=== PATIENT | female | born 1945 | race Caucasian/White ===

== ENCOUNTER 2019-09-08 09:49 | Outpatient (CLI) | payer MEDICARE, OTHER, SELFPAY ==
[2019-09-08 10:20] LABS: Basophils % 0.5 %; Eosinophils # 0.2 10^3/uL (0.0-0.8); Eosinophils % 3.9 %; Hematocrit 39.7 % (37.0-47.0); Hemoglobin 12.7 g/dL (11.5-15.3); Lymphocytes % 22.7 %; Mean Corpuscular Hemoglobin 30.5 pg (28.0-34.0); Mean Corpuscular Volume 95.2 fL (81-99); Mean Platelet Volume 10.3 fL (7.4-10.4); Monocytes # 0.3 10^3/uL (0.2-0.9); Monocytes % 6.2 %; Neutrophils # 2.9 10^3/uL (1.8-7.7); Neutrophils % 66.5 %; Nucleated Red Blood Cells % 0 %; Platelet Count 164 10^3/cmm (130-400); Red Blood Count 4.17 10^6/uL (4.1-5.3); Red Cell Distribution Width 12.9 % (12.1-15.1); White Blood Count 4.4 10^3/uL (4.0-10.0)
[2019-09-08 11:20] LABS: Alanine Aminotransferase 18 U/L (0-33); Albumin Level 4.4 g/dL (3.5-5.2); Alkaline Phosphatase 72 IU/L (35-105); Anion Gap 16.3 (5-19); Aspartate Amino Transferase 23 U/L (0-32); Blood Urea Nitrogen 16 mg/dL (8-23); Calcium 9.8 mg/Dl (8.8-10.2); Carbon Dioxide 25 mmol/L (22-29); Chloride 99 mmol/L (98-107); Gamma Glutamyl Transferase 21 U/L (36-); Globulin 2.3 g/dL (1.3-4.6); Glucose 131 mg/dL (74-106); Potassium 4.3 mmol/L (3.5-5.1); Sodium 136 mmol/L (136-145); Total Bilirubin 0.3 mg/dL (0.15-1.2); Total Protein 6.7 g/dL (6.6-8.7)
== END 2019-09-08 09:50 | disposition home or self-care (01) ==
LOC: LAB 10:02
PROVIDERS: Family Provider Internal Medicine; PCP Internal Medicine; Visit Provider Internal Medicine Gastroenterology
DX: Z94.4 Liver transplant status (principal); Z79.899 Other long term (current) drug therapy
CPT/HCPCS: 36415; 80053; 80197; 82977; 85025

== ENCOUNTER 2019-12-08 09:57 | Outpatient (CLI) | payer MEDICARE, OTHER, SELFPAY ==
[2019-12-08 10:19] LABS: Basophils % 0.7 %; Eosinophils # 0.1 10^3/uL (0.0-0.8); Eosinophils % 2.8 %; Hematocrit 40.1 % (37.0-47.0); Hemoglobin 12.5 g/dL (11.5-15.3); Lymphocytes # 1.2 10^3/uL (0.8-4.8); Lymphocytes % 27.2 %; Mean Corpuscular HGB Conc 31.2 g/dL (30.0-36.0); Mean Corpuscular Hemoglobin 28.3 pg (28.0-34.0); Mean Corpuscular Volume 90.9 fL (81-99); Mean Platelet Volume 9.6 fL (7.4-10.4); Monocytes # 0.3 10^3/uL (0.2-0.9); Monocytes % 7.3 %; Neutrophils # 2.6 10^3/uL (1.8-7.7); Neutrophils % 61.8 %; Nucleated Red Blood Cells % 0 %; Platelet Count 167 10^3/cmm (130-400); Red Blood Count 4.41 10^6/uL (4.1-5.3); Red Cell Distribution Width 13.8 % (12.1-15.1); White Blood Count 4.3 10^3/uL (4.0-10.0)
[2019-12-08 10:36] LABS: Alanine Aminotransferase 17 U/L (0-33); Albumin Level 4.4 g/dL (3.5-5.2); Alkaline Phosphatase 77 IU/L (35-105); Anion Gap 15.4 (5-19); Aspartate Amino Transferase 26 U/L (0-32); Blood Urea Nitrogen 15 mg/dL (8-23); Calcium 9.9 mg/dL (8.5-10.5); Carbon Dioxide 27 mmol/L (22-29); Chloride 100 mmol/L (98-107); Gamma Glutamyl Transferase 25 U/L (5-36); Globulin 3.1 g/dL (1.3-4.6); Glucose 108 mg/dL (65-115); Osmolality Calculated 283 mOsm/kg (285-295); Potassium 4.4 mmol/L (3.5-5.1); Sodium 138 mmol/L (136-145); Total Bilirubin 0.3 mg/dL (0.15-1.2); Total Protein 7.5 g/dL (6.6-8.7)
== END 2019-12-08 09:58 | disposition home or self-care (01) ==
LOC: LAB 10:06
PROVIDERS: Family Provider Internal Medicine; PCP Internal Medicine; Visit Provider Internal Medicine Gastroenterology
DX: Z94.4 Liver transplant status (principal); Z79.899 Other long term (current) drug therapy
CPT/HCPCS: 36415; 80053; 80197; 82977; 85025

== ENCOUNTER 2020-02-21 15:23 | Outpatient (CLI) | payer MEDICARE, OTHER, SELFPAY | END 2020-02-21 15:24 | disposition home or self-care (01) | LOC: SPT 15:24 | PROVIDERS: Family Provider Internal Medicine; PCP Internal Medicine; Visit Provider Podiatrist Foot & Ankle Surgery | DX: M21.40 Flat foot [pes planus] (acquired), unspecified foot (principal); M20.41 Other hammer toe(s) (acquired), right foot; M20.42 Other hammer toe(s) (acquired), left foot | CPT/HCPCS: 97760; L3030 ==

== ENCOUNTER 2020-03-08 09:32 | Outpatient (CLI) | payer MEDICARE, OTHER, SELFPAY ==
[2020-03-08 09:55] LABS: Basophils % 0.7 %; Eosinophils # 0.1 10^3/uL (0.0-0.8); Eosinophils % 2.3 %; Hematocrit 39.7 % (37.0-47.0); Hemoglobin 12.8 g/dL (11.5-15.3); Lymphocytes # 1.3 10^3/uL (0.8-4.8); Lymphocytes % 30.4 %; Mean Corpuscular HGB Conc 32.2 g/dL (30.0-36.0); Mean Corpuscular Hemoglobin 29.2 pg (28.0-34.0); Mean Corpuscular Volume 90.4 fL (81-99); Mean Platelet Volume 10.8 fL (7.4-10.4); Monocytes # 0.3 10^3/uL (0.2-0.9); Neutrophils # 2.55 10^3/uL (1.8-7.7); Neutrophils % 59.1 %; Nucleated Red Blood Cells % 0 %; Platelet Count 145 10^3/cmm (130-400); Red Blood Count 4.39 10^6/uL (4.1-5.3); White Blood Count 4.3 10^3/uL (4.0-10.0)
[2020-03-08 10:11] LABS: Alanine Aminotransferase 22 U/L (0-33); Albumin Level 4.5 g/dL (3.5-5.2); Alkaline Phosphatase 57 IU/L (35-105); Anion Gap 13.4 (5-19); Aspartate Amino Transferase 22 U/L (0-32); Blood Urea Nitrogen 14 mg/dL (8-23); Calcium 9.1 mg/dL (8.5-10.5); Carbon Dioxide 27 mmol/L (22-29); Chloride 96 mmol/L (98-107); Gamma Glutamyl Transferase 21 U/L (5-36); Globulin 2.8 g/dL (1.3-4.6); Glucose 98 mg/dL (65-115); Osmolality Calculated 270 mOsm/kg (285-295); Potassium 4.4 mmol/L (3.5-5.1); Sodium 132 mmol/L (136-145); Total Bilirubin 0.4 mg/dL (0.15-1.2); Total Protein 7.3 g/dL (6.6-8.7)
== END 2020-03-08 09:33 | disposition home or self-care (01) ==
LOC: LAB 09:40
PROVIDERS: PCP Internal Medicine; Visit Provider Internal Medicine Gastroenterology
DX: Z79.899 Other long term (current) drug therapy (principal)
CPT/HCPCS: 36415; 80053; 80197; 82977; 85025

== ENCOUNTER → 2020-05-10 11:47 | Outpatient (BNVA) | payer MEDICARE, OTHER, SELFPAY | PROVIDERS: Family Provider Internal Medicine; PCP Internal Medicine; Visit Provider Internal Medicine Cardiovascular Disease | DX: E78.2 Mixed hyperlipidemia (principal); I49.3 Ventricular premature depolarization | CPT/HCPCS: 80061 ==

== ENCOUNTER 2020-06-07 09:29 | Outpatient (CLI) | payer MEDICARE, OTHER, SELFPAY ==
[2020-06-07 10:05] LABS: Basophils % 0.4 %; Eosinophils # 0.1 10^3/uL (0.0-0.8); Eosinophils % 2.1 %; Hematocrit 39.9 % (37.0-47.0); Hemoglobin 13.1 g/dL (11.5-15.3); Lymphocytes # 1.1 10^3/uL (0.8-4.8); Mean Corpuscular HGB Conc 32.8 g/dL (30.0-36.0); Mean Corpuscular Hemoglobin 30.3 pg (28.0-34.0); Mean Corpuscular Volume 92.1 fL (81-99); Mean Platelet Volume 10.4 fL (7.4-10.4); Monocytes # 0.3 10^3/uL (0.2-0.9); Monocytes % 6.1 %; Neutrophils # 3.69 10^3/uL (1.8-7.7); Neutrophils % 70.4 %; Nucleated Red Blood Cells % 0 %; Platelet Count 146 10^3/cmm (130-400); Red Blood Count 4.33 10^6/uL (4.1-5.3); Red Cell Distribution Width 13.3 % (12.1-15.1); White Blood Count 5.2 10^3/uL (4.0-10.0)
[2020-06-07 10:25] LABS: Alanine Aminotransferase 18 U/L (0-33); Albumin Level 4.6 g/dL (3.5-5.2); Alkaline Phosphatase 63 IU/L (35-105); Anion Gap 14.2 (5-19); Aspartate Amino Transferase 23 U/L (0-32); Blood Urea Nitrogen 13 mg/dL (8-23); Calcium 9.5 mg/dL (8.5-10.5); Carbon Dioxide 27 mmol/L (22-29); Chloride 104 mmol/L (98-107); Gamma Glutamyl Transferase 22 U/L (5-36); Globulin 2.4 g/dL (1.3-4.6); Glucose 109 mg/dL (65-115); Osmolality Calculated 293 mOsm/kg (285-295); Potassium 4.2 mmol/L (3.5-5.1); Sodium 141 mmol/L (136-145); Total Bilirubin 0.4 mg/dL (0.15-1.2)
== END 2020-06-07 09:30 | disposition home or self-care (01) ==
LOC: LAB 09:39
PROVIDERS: PCP Internal Medicine; Visit Provider Internal Medicine Gastroenterology
DX: Z94.4 Liver transplant status (principal); Z79.899 Other long term (current) drug therapy
CPT/HCPCS: 36415; 80053; 80197; 82977; 85025

== ENCOUNTER 2020-09-08 09:12 | Outpatient (CLI) | payer MEDICARE, OTHER, SELFPAY ==
[2020-09-08 09:53] LABS: Basophils % 0.9 %; Eosinophils # 0.1 10^3/uL (0.0-0.8); Eosinophils % 2.8 %; Hematocrit 40.7 % (37.0-47.0); Hemoglobin 13.2 g/dL (11.5-15.3); Mean Corpuscular HGB Conc 32.4 g/dL (30.0-36.0); Mean Corpuscular Volume 92.5 fL (81-99); Mean Platelet Volume 9.8 fL (7.4-10.4); Monocytes # 0.2 10^3/uL (0.2-0.9); Monocytes % 6.8 %; Neutrophils # 2.13 10^3/uL (1.8-7.7); Neutrophils % 60.5 %; Nucleated Red Blood Cells % 0 %; Platelet Count 166 10^3/cmm (130-400); Red Cell Distribution Width 13.1 % (12.1-15.1); White Blood Count 3.5 10^3/uL (4.0-10.0)
[2020-09-08 10:07] LABS: Gamma Glutamyl Transferase 29 U/L (5-36)
[2020-09-08 10:42] LABS: Alanine Aminotransferase 21 U/L (0-33); Albumin Level 4.2 g/dL (3.5-5.2); Alkaline Phosphatase 68 IU/L (35-105); Anion Gap 13.2 (5-19); Aspartate Amino Transferase 24 U/L (0-32); Blood Urea Nitrogen 14 mg/dL (8-23); Calcium 9.4 mg/dL (8.5-10.5); Carbon Dioxide 29 mmol/L (22-29); Chloride 101 mmol/L (98-107); Globulin 2.9 g/dL (1.3-4.6); Glucose 92 mg/dL (65-115); Osmolality Calculated 288 mOsm/kg (285-295); Potassium 4.2 mmol/L (3.5-5.1); Sodium 139 mmol/L (136-145); Total Bilirubin 0.3 mg/dL (0.15-1.2); Total Protein 7.1 g/dL (6.6-8.7)
== END 2020-09-08 09:13 | disposition home or self-care (01) ==
PROVIDERS: PCP Internal Medicine; Visit Provider Internal Medicine Gastroenterology
DX: Z94.4 Liver transplant status (principal); Z79.899 Other long term (current) drug therapy
CPT/HCPCS: 36415; 80053; 80197; 82977; 85025

== ENCOUNTER 2020-12-04 12:58 | Outpatient (CLI) | payer MEDICARE, OTHER, SELFPAY ==
--- NOTE | 2020-12-04 13:30 | USCV_ITS ---
Echo Wright Age: 75 Gender: F : 1945 Exam Date: 12/04/2020 13:15 Ordering Phys: Taylor Hughes MD ([email or web address]) Technologist: Mariah Serrano [place] [facility] [place]: CEREBRAL INFARCTION Risk Factors: Previous Vascular Surgery: Right Brachial BP: / Left Brachial BP: / Right Left Velocity (cm/s) Spectral Plaque Velocity (cm/s) Spectral Plaque Syst/Diast Broadening Syst/Diast Broadening 84.90/ 16.50 Prox CCA 67.90 / 16.70 80.60/ 20.10 Mid CCA 61.70 / 20.40 40.30/ 13.10 Distal CCA 47.50 / 16.00 25.90/ 13.00 Prox ICA 34.60 / 14.20 33.90/ 14.20 Mid ICA 36.40 / 12.30 35.80/ 13.00 Distal ICA 48.80 / 17.90 60.40 ECA 53.10 0.44 ICA/CCA 0.79 Antegrade Vertebral Antegrade 51.20/ 14.80 cm/s 71.60/ 13.00 cm/s Tri Subclavian Bi 59.90 99.20 FINDINGS Comparison: none available. No significant elevation of systolic or diastolic velocities. Waveforms are normal. Minimal bilateral, plaque at the bifurcations with no elevation of velocity. CONCLUSIONS Bilateral ICA stenosis less than 50%. Mild carotid atherosclerosis. Dr. Catrina Covarrubias DO (Electronically Signed) Final Date: 04 December 2020 15:21 S
== END 2020-12-04 12:59 | disposition home or self-care (01) ==
LOC: RAD 13:06
PROVIDERS: PCP Internal Medicine; Visit Provider Internal Medicine Cardiovascular Disease
DX: I63.9 Cerebral infarction, unspecified (principal); I65.23 Occlusion and stenosis of bilateral carotid arteries
CPT/HCPCS: 93880

== ENCOUNTER 2020-12-06 09:33 | Outpatient (CLI) | payer MEDICARE, OTHER, SELFPAY ==
[2020-12-06 10:12] LABS: Basophils % 0.6 %; Eosinophils # 0.1 10^3/uL (0.0-0.8); Eosinophils % 2.8 %; Hematocrit 41.1 % (37.0-47.0); Hemoglobin 13.4 g/dL (11.5-15.3); Lymphocytes # 0.9 10^3/uL (0.8-4.8); Mean Corpuscular HGB Conc 32.6 g/dL (30.0-36.0); Mean Corpuscular Hemoglobin 30.7 pg (28.0-34.0); Mean Corpuscular Volume 94.3 fL (81-99); Mean Platelet Volume 10.2 fL (7.4-10.4); Monocytes # 0.3 10^3/uL (0.2-0.9); Monocytes % 7.6 %; Neutrophils # 2.29 10^3/uL (1.8-7.7); Neutrophils % 64.7 %; Nucleated Red Blood Cells % 0 %; Platelet Count 141 10^3/cmm (130-400); Red Blood Count 4.36 10^6/uL (4.1-5.3); Red Cell Distribution Width 13.3 % (12.1-15.1); White Blood Count 3.5 10^3/uL (4.0-10.0)
[2020-12-06 10:42] LABS: Alanine Aminotransferase 22 U/L (0-33); Albumin Level 4.3 g/dL (3.5-5.2); Alkaline Phosphatase 72 IU/L (35-105); Aspartate Amino Transferase 24 U/L (0-32); Blood Urea Nitrogen 13 mg/dL (8-23); Calcium 9.1 mg/dL (8.5-10.5); Carbon Dioxide 27 mmol/L (22-29); Chloride 101 mmol/L (98-107); Gamma Glutamyl Transferase 31 U/L (5-36); Globulin 2.4 g/dL (1.3-4.6); Glucose 116 mg/dL (65-115); Osmolality Calculated 283 mOsm/kg (285-295); Sodium 136 mmol/L (136-145); Total Bilirubin 0.4 mg/dL (0.15-1.2); Total Protein 6.7 g/dL (6.6-8.7)
== END 2020-12-06 09:34 | disposition home or self-care (01) ==
PROVIDERS: PCP Internal Medicine; Visit Provider Internal Medicine Gastroenterology
DX: Z94.4 Liver transplant status (principal); Z79.899 Other long term (current) drug therapy
CPT/HCPCS: 36415; 80053; 80197; 82977; 85025

== ENCOUNTER 2021-03-08 09:14 | Outpatient (CLI) | payer MEDICARE, OTHER, SELFPAY ==
[2021-03-08 09:33] LABS: Basophils % 0.6 %; Eosinophils # 0.1 10^3/uL (0.0-0.8); Eosinophils % 2.5 %; Hematocrit 39.7 % (37.0-47.0); Lymphocytes # 1.3 10^3/uL (0.8-4.8); Lymphocytes % 27.8 %; Mean Corpuscular HGB Conc 32.7 g/dL (30.0-36.0); Mean Corpuscular Hemoglobin 31.1 pg (28.0-34.0); Mean Platelet Volume 10.4 fL (7.4-10.4); Monocytes # 0.4 10^3/uL (0.2-0.9); Monocytes % 7.4 %; Neutrophils % 61.5 %; Nucleated Red Blood Cells % 0 %; Platelet Count 154 10^3/cmm (130-400); Red Blood Count 4.18 10^6/uL (4.1-5.3); Red Cell Distribution Width 13.9 % (12.1-15.1); White Blood Count 4.7 10^3/uL (4.0-10.0)
[2021-03-08 09:52] LABS: Alanine Aminotransferase 22 U/L (0-33); Albumin Level 4.1 g/dL (3.5-5.2); Alkaline Phosphatase 59 IU/L (35-105); Anion Gap 12.8 (5-19); Aspartate Amino Transferase 24 U/L (0-32); Blood Urea Nitrogen 11 mg/dL (8-23); Calcium 8.9 mg/dL (8.5-10.5); Carbon Dioxide 28 mmol/L (22-29); Chloride 100 mmol/L (98-107); Gamma Glutamyl Transferase 22 U/L (5-36); Globulin 2.5 g/dL (1.3-4.6); Glucose 103 mg/dL (65-115); Osmolality Calculated 284 mOsm/kg (285-295); Potassium 3.8 mmol/L (3.5-5.1); Sodium 137 mmol/L (136-145); Total Bilirubin 0.4 mg/dL (0.15-1.2); Total Protein 6.6 g/dL (6.6-8.7)
== END 2021-03-08 09:15 | disposition home or self-care (01) ==
PROVIDERS: PCP Internal Medicine; Visit Provider Internal Medicine Gastroenterology
DX: Z94.4 Liver transplant status (principal); Z79.899 Other long term (current) drug therapy
CPT/HCPCS: 36415; 80053; 80197; 82977; 85025

== ENCOUNTER 2021-06-21 09:18 | Outpatient (CLI) | payer MEDICARE, OTHER, SELFPAY ==
[2021-06-21 10:10] LABS: Basophils % 0.5 %; Eosinophils # 0.1 10^3/uL (0.0-0.8); Eosinophils % 3.5 %; Hematocrit 39.2 % (37.0-47.0); Hemoglobin 12.9 g/dL (11.5-15.3); Lymphocytes # 1.3 10^3/uL (0.8-4.8); Lymphocytes % 35.8 %; Mean Corpuscular HGB Conc 32.9 g/dL (30.0-36.0); Mean Corpuscular Hemoglobin 30.4 pg (28.0-34.0); Mean Corpuscular Volume 92.5 fl (81-99); Mean Platelet Volume 10.1 fL (7.4-10.4); Monocytes # 0.2 10^3/uL (0.2-0.9); Monocytes % 6.5 %; Neutrophils # 1.99 10^3/uL (1.8-7.7); Neutrophils % 53.4 %; Nucleated Red Blood Cells % 0 %; Platelet Count 164 10^3/cmm (130-400); Red Blood Count 4.24 10^6/uL (4.1-5.3); Red Cell Distribution Width 13.2 % (12.1-15.1); White Blood Count 3.7 10^3/uL (4.0-10.0)
[2021-06-21 10:41] LABS: Alanine Aminotransferase 21 U/L (0-33); Albumin Level 4.2 g/dL (3.5-5.2); Alkaline Phosphatase 63 IU/L (35-105); Anion Gap 11.2 (5-19); Aspartate Amino Transferase 24 U/L (0-32); Blood Urea Nitrogen 11 mg/dL (8-23); Calcium 9.2 mg/dL (8.5-10.5); Carbon Dioxide 28 mmol/L (22-29); Chloride 97 mmol/L (98-107); Gamma Glutamyl Transferase 24 U/L (5-36); Globulin 2.5 g/dL (1.3-4.6); Glucose 108 mg/dL (65-115); Osmolality Calculated 274 mOsm/kg (285-295); Potassium 4.2 mmol/L (3.5-5.1); Sodium 132 mmol/L (136-145); Total Bilirubin 0.4 mg/dL (0.15-1.2); Total Protein 6.7 g/dL (6.6-8.7)
== END 2021-06-21 09:19 | disposition home or self-care (01) ==
PROVIDERS: PCP Internal Medicine; Visit Provider Internal Medicine Gastroenterology
DX: Z94.4 Liver transplant status (principal); Z79.899 Other long term (current) drug therapy
CPT/HCPCS: 36415; 80053; 80197; 82977; 85025

== ENCOUNTER 2021-07-08 20:07 | Observation (INO) | payer MEDICARE, OTHER, SELFPAY ==
[2021-07-08 20:09] VITALS: BP 177/102; PULSE 117; RESP 18; TEMP 36.3; O2SAT 98; BMI 25.3
--- NOTE | 2021-07-08 20:27 | USCV_ITS ---
Echo Wright Age: 76 Gender: F : 1945 Exam Date: 07/08/2021 21:51 Ordering Phys: Rashi Sanchez DO Technologist: [place] [facility] [place]: NUMB RT ARM Risk Factors: Previous Vascular Surgery: Right BP: / Left BP: / RIGHT LEFT PSV PSV (cm/s) (cm/s) Waveform Waveform Triphasic Subclavian Proximal Triphasic Axillary Triphasic Brachial Mid Triphasic Radial Proximal Triphasic Ulnar Proximal 1.0 Radial/Brachial Index 1.0 Ulnar/Brachial Index FINDINGS NORMAL ART FLOW IN RT ARM Triphasic Doppler waveforms at the subclavian, axillary, brachial, radial and ulnar arterial level CONCLUSIONS Normal arterial Doppler waveforms Patent axillary, brachial, radial and ulnar arteries on the right side No evidence of arterial obstruction. Dr Herb Minor MD FAC (Electronically Signed) Final Date: 09 July 2021 09:01 S
--- NOTE | 2021-07-08 20:27 | CTR_ITS ---
PROCEDURE INFORMATION: Exam: CT Head Without Contrast Exam date and time: 07/08/2021 8:27 PM Age: 76 years old Clinical indication: Weakness, extremity; Right; Patient HX: HX of stroke C/O rue weakness, numbness; Additional info: Right ue paresthesia TECHNIQUE: Imaging protocol: Computed tomography of the head without contrast. Radiation optimization: All CT scans at this facility use at least one of these dose optimization techniques: automated exposure control; mA and/or kV adjustment per patient size (includes targeted exams where dose is matched to clinical indication); or iterative reconstruction. COMPARISON: MR head wo con* [id number] 08/28/2018 5:30 PM RADIATION DOSE METRICS: Total DLP (mGy-cm): 794.54 FINDINGS: Brain: There is diffuse cerebral atrophy present, consistent with this patient's age. There are chronic lacunar infarct versus prominent perivascular spaces inferior to the lentiform nuclei. There are chronic lacunar infarcts in the left caudate and left singh radiata.Periventricular and subcortical white matter low densities are present which at this age likely represent microvascular ischemic change. No evidence for large acute ischemic infarction. Please note acute ischemia can be occult by head CT. Cerebral ventricles: No ventriculomegaly. Paranasal sinuses: Visualized sinuses are unremarkable. No fluid levels. Mastoid air cells: Visualized mastoid air cells are well aerated. Vasculature: Calcified plaque is present within the carotid siphons. Bones/joints: Unremarkable. No acute fracture. Soft tissues: Unremarkable. CT/CT head wo con* [id number] IMPRESSION: There are senescent changes of the brain as described above. No evidence for large acute ischemic infarction or acute intracranial injury. Radiation Dose CTDIVOL = (mGy): DLP = 794.54 (mGy-cm)
--- NOTE | 2021-07-08 20:29 | ECG_ITS ---
[facility] Test Date: 2021-07-08 Pat Name: Echo Wright Department: Room: Gender: Female Roving Department End Finder: : 1945 Requested By: Rashi Mancia Order Number: [id number] Stephanie MD: Taylor Hughes M.D. Measurements Intervals [place] Rate: 62 P: 15 [place]: 158 QRS: 23 QRSD: 86 T: 41 QT: 414 QTc: 422 Interpretive Statements SINUS RHYTHM Compared to ECG 04/30/2019 01:51:30 No significant changes Electronically Signed On 07-10-2021 12:42:06 POPCORN MACHINE OPERATOR by Taylor Hughes M.D. [id number]
[2021-07-08 21:04] LABS: Basophils % 0.7 %; Eosinophils # 0.2 10^3/uL (0.0-0.8); Hematocrit 37.1 % (37.0-47.0); Hemoglobin 12.6 g/dL (11.5-15.3); Lymphocytes # 1.8 10^3/uL (0.8-4.8); Lymphocytes % 42.8 %; Mean Corpuscular Volume 91.4 fl (81-99); Mean Platelet Volume 10.4 fL (7.4-10.4); Monocytes # 0.3 10^3/uL (0.2-0.9); Monocytes % 7.4 %; Neutrophils # 1.93 10^3/uL (1.8-7.7); Neutrophils % 44.9 %; Nucleated Red Blood Cells % 0 %; Platelet Count 171 10^3/cmm (130-400); Red Blood Count 4.06 10^6/uL (4.1-5.3); Red Cell Distribution Width 13.3 % (12.1-15.1); White Blood Count 4.3 10^3/uL (4.0-10.0)
[2021-07-08 21:27] LABS: Alanine Aminotransferase 23 U/L (0-33); Albumin Level 4.1 g/dL (3.5-5.2); Alkaline Phosphatase 79 IU/L (35-105); Anion Gap 16.7 (5-19); Aspartate Amino Transferase 22 U/L (0-32); Blood Urea Nitrogen 16 mg/dL (8-23); C Reactive Protein 0.5 mg/L (0.0-4.9); Calcium 8.6 mg/dL (8.5-10.5); Carbon Dioxide 25 mmol/L (22-29); Chloride 100 mmol/L (98-107); Creatine Phosphokinase 70 U/L (26-192); Globulin 2.6 g/dL (1.3-4.6); Glucose 94 mg/dL (65-115); Osmolality Calculated 287 mOsm/kg (285-295); Potassium 3.7 mmol/L (3.5-5.1); Sodium 138 mmol/L (136-145); Total Bilirubin 0.2 mg/dL (0.15-1.2); Total Protein 6.7 g/dL (6.6-8.7)
[2021-07-08 21:50] LABS: Add Urine Microscopic? NO; Charge for UA Resulting for Rev
[2021-07-08] MEDS: sodium chloride 0.9% 1,000 ML 999 ML IV (21:50)
--- NOTE | 2021-07-08 21:59 | ED_ITS ---
HPI - Neuro Symptoms/Deficit General: Chief Complaint: Neuro Symptoms/Deficit Stated Complaint: Rt arm Numb Time Seen by Provider: 07/08/21 20:13 History of Present Illness: HPI Narrative: 76-year-old female who 1.25 to 1.5h prior to arrival began to have symptoms of right arm numbness/tingling. She says it was more pronounced at home that it is now and is improved to some degree. She has had a history of stroke a few years ago with residual right- sided weakness of that upper extremity. She does not feel any more weak than normal. There is no other weakness or paresthesia present. No language problems. No speech problems or vision problems. No dizziness. She does note that the arm hurts to some degree. No temperature changes. Onset (ago): hour(s) (See above) Timing confirmed by: spouse Location: right arm History of same: No Severity: moderate Quality: numb and tingling Relieving factors: time Exacerbating factors: none Context: sudden onset On Anticoagulants: No Associated symptoms: Deny chest pain, cough, diaphoresis, fevers/chills, headache(s), anorexia, nausea, seizures, short of breath or vomiting Treatments Prior to Arrival: none Review of Systems Const: Denies: fever(s) or diaphoresis Card: Denies: chest pain GI: Denies: nausea or vomiting Neuro: Denies: headache(s) [facility] ED PFSH: Medical History (Updated 07/09/21 @ 01:13 by Gerardo Rao) CVA (cerebral vascular accident) Hyperlipidemia Hypertension LVH (left ventricular hypertrophy) Palpitations PVC (premature ventricular contraction) Surgical History Kidney transplant recipient Liver transplant recipient Family History Mother Stroke Hypertension Family/Other Cancer Social History Smoking and tobacco status: never smoked Alcohol intake: never Current occupational status: retired Physical Exam Const: COMMON NORMALS: no acute distress, patient oriented x3 and alert GENERAL APPEARANCE: not ill appearing Eye: COMMON NORMALS: Equal, round and reactive pupils present VISUAL BILLS: No peripheral vision loss, No left visual field cut and No right visual field cut PUPIL: Yes Equal, round and reactive pupils present Chest: COMMONS NORMALS: normal inspection of the chest Resp: COMMON NORMALS: normal respiratory effort, No use of accessory muscles and clear to auscultation bilaterally AUSCULTATION: clear to auscultation bilaterally Cardio: COMMON NORMALS: regular rate and regular rhythm RATE: regular rate RHYTHM: regular rhythm GI: COMMON NORMALS: Normal to inspection, nondistended, normoactive bowel sounds present, Soft to palpation and non-tender PALPATION: Yes Soft to palpation Neuro: COMMON NORMALS: patient oriented x3 SENSORIUM/ORIENTATION: Yes alert Course Consultations: Consultation #1: mirta Time: 00:23 Consultation #2: vida Time: 00:35 Vital Signs: Vital signs: Vital Signs Temperature 97.4 F L 07/08/21 20:09 Pulse Rate 100 07/09/21 00:39 Respiratory Rate 18 07/09/21 00:39 Blood Pressure 172/100 07/09/21 00:39 Pulse Oximetry 98 07/09/21 00:39 MDM - Neuro Symptoms/Deficit MDM Narrative: Medical decision making narrative: 76-year-old female presenting with a sole symptom of right upper extremity paresthesia. It had nearly resolved on her arrival. She felt it mainly in her forearm. No chest discomfort, no shortness of breath, no other symptoms peer head CT is negative for acute change. CBC and BMP are normal. Symptoms were resolved on their own, with IV fluid. On reassessment, her discomfort/paresthesia to the right upper extremity is resolved. When setting her up, though, he had a rhythm change on the monitor. It appeared to be a flutter at first. Her EKG on arrival was in normal sinus rhythm, rate of 62, normal axis, and no acute ST changes. Repeat EKG after rhythm change noticed shows a sinus rhythm with large left bundle branch block and left axis deviation. No ST changes noted. Because of the rh ythm change, cardiology was consulted. Troponin was drawn cardiology recommendations are Lovenox, aspirin, Nitropaste, and metoprolol. These have been given in the ER. She will be observed on the hospitalist service in the [facility]. Repeat troponins have been ordered. Cardiology will evaluate in the morning. They will reevaluate tonight if there development of new symptoms, or significant rhythm change. Lab Data: Labs: Lab Results 07/08/21 07/08/21 07/08/21 20:45 20:45 21:05 WBC 4.3 10^3/uL 10^3/ uL (4.0-10.0) RBC 4.06 10^6/uL L 10 ^6/uL (4.1-5.3) Hgb 12.6 g/dL g/dL (11.5-15.3) Hct 37.1 % % (37.0-47.0) MCV 91.4 fl fl (81-99) MCH 31.0 pg pg (28.0-34.0) MCHC 34.0 g/dL g/dL (30.0-36.0) RDW 13.3 % % (12.1-15.1) Plt Count 171 10^3/cmm 10^3 /cmm (130-400) MPV 10.4 fL fL (7.4-10.4) Neut % (Auto) 44.9 % % Lymph % (Auto) 42.8 % % Story % (Auto) 7.4 % % Eos % (Auto) 4.0 % % Baso % (Auto) 0.7 % % Neut # (Auto) 1.93 10^3/uL 10^3 /uL (1.8-7.7) Lymph # (Auto) 1.8 10^3/uL 10^3/ uL (0.8-4.8) Story # (Auto) 0.3 10^3/uL 10^3/ uL (0.2-0.9) Eos # (Auto) 0.2 10^3/uL 10^3/ uL (0.0-0.8) Baso # (Auto) 0.0 10^3/uL 10^3/ uL (0.0-0.1) Nucleated RBC % (a uto) 0 % % Nucleated RBCs # 0.0 /100WBC /100W BC Sodium 138 mmol/L mmol/L (136-145) Potassium 3.7 mmol/L mmol/L (3.5-5.1) Chloride 100 mmol/L mmol/L (98-107) Carbon Dioxide 25 mmol/L mmol/L (22-29) Anion Gap 16.7 (5-19) BUN 16 mg/dL mg/dL (8-23) Creatinine 0.6 mg/dL mg/dL (0.5-0.9) GFR Calculation Not Reportable Glucose 94 mg/dL mg/dL (65-115) Calculated Osmolal ity 287 mOsm/kg mOsm/ kg (285-295) Calcium 8.6 mg/dL mg/dL (8.5-10.5) Total Bilirubin 0.2 mg/dL mg/dL (0.15-1.2) AST 22 U/L U/L (0-32) ALT 23 U/L U/L (0-33) Alkaline Phosphata se 79 IU/L IU/L (35-105) Creatine Kinase 70 U/L U/L (26-192) Troponin T Baselin e C-Reactive Protein 0.5 mg/L mg/L (0.0-4.9) Total Protein 6.7 g/dL g/dL (6.6-8.7) Albumin 4.1 g/dL g/dL (3.5-5.2) Globulin 2.6 g/dL g/dL (1.3-4.6) Urine Color Yellow (Yellow) Urine Appearance Clear (CLEAR) Urine pH 7 (5-7) Ur Specific [place]it y 1.010 (1.005-1.030) Urine Protein Neg (Negative) Urine Glucose (UA) Norm (Normal) Urine Ketones Negative (Negative) Urine Blood Neg (Negative) Urine Nitrate Negative (Negative) Urine Bilirubin Neg (Negative) Urine Urobilinogen Norm mg/dL mg/dL (Negative) Ur Leukocyte Sandra ase Negative (Negative) 07/09/21 00:20 WBC RBC Hgb Hct MCV MCH MCHC RDW Plt Count MPV Neut % (Auto) Lymph % (Auto) Story % (Auto) Eos % (Auto) Baso % (Auto) Neut # (Auto) Lymph # (Auto) Story # (Auto) Eos # (Auto) Baso # (Auto) Nucleated RBC % (a uto) Nucleated RBCs # Sodium Potassium Chloride Carbon Dioxide Anion Gap BUN Creatinine GFR Calculation Glucose Calculated Osmolal ity Calcium Total Bilirubin AST ALT Alkaline Phosphata se Creatine Kinase Troponin T Baselin e 10 ng/L ng/L (0-10) C-Reactive Protein Total Protein Albumin Globulin Urine Color Urine Appearance Urine pH Ur Specific Gravit y Urine Protein Urine Glucose (UA) Urine Ketones Urine Blood Urine Nitrate Urine Bilirubin Urine Urobilinogen Ur Leukocyte Sandra ase Discharge Plan Discharge Patient Disposition: Placed in Observation Admit Provider: Gerardo Rao Clinical Impression: Paresthesia Coding Level of Care Code ED Respiratory Medicine Physician for Chg Fwd Exam Detailed
[2021-07-08 22:11] LABS: Bilirubin Urine Neg (Negative); Blood Urine Neg (Negative); Glucose Urine UA Norm (Normal); Ketones Urine Negative (Negative); Leukocyte Esterase Urine Negative (Negative); Nitrate Urine Negative (Negative); Protein Urine Neg (Negative); Urine Appearance Clear (CLEAR); Urine Color Yellow (Yellow); Urobilinogen Urine Norm (Negative); pH Urine 7 (5-7)
--- NOTE | 2021-07-08 23:44 | ECG_ITS ---
[facility] Test Date: 2021-08-25 Pat Name: Echo Wright Department: Room: 107 Gender: Female Community Outreach Director: : 1945 Requested By: Rashi Mancia Order Number: [id number] Stephanie MD: Herb Minor M.D. Measurements Intervals [place] Rate: 67 P: 52 [place]: 129 QRS: 37 QRSD: 87 T: 35 QT: 368 QTc: 389 Interpretive Statements SINUS RHYTHM Nonspecific T wave change Compared to ECG 07/09/2021 10:12:49 Myocardial infarct finding no longer present Electronically Signed On 08-26-2021 20:16:04 IT RISK ANALYST by Herb Minor M.D. [email or web address] county [email or web address] clinic akron general lodi [id number] f
[2021-07-09] VITALS (11 sets, daily range): BP systolic 118–172; BP diastolic 63–100; PULSE 70–100; RESP 17–30; TEMP 36.6–37.1; O2SAT 95–98
[2021-07-09] MEDS: aspirin 325 mg Tablet PO (00:51)
[2021-07-09] MEDS: metoprolol tartrate 25 mg Tablet PO ×2 (00:52→12:19)
[2021-07-09] MEDS: nitroglycerin 1 gm/inch oint Pkt 1 INCH TOPICAL (00:52)
[2021-07-09] MEDS: enoxaparin 80 mg/0.8 mL Syringe 60 MG SUBCUT (00:55)
[2021-07-09 00:56] LABS: Troponin(5th) Baseline 10 ng/L (0-10)
--- NOTE | 2021-07-09 01:07 | P.HP_ITS ---
Providers/Chief Complaint Primary Care Provider: Smith Martínez DO Chief Complaint: Rt arm Numb History of Present Illness Echo Wright is a 76 year old female with past medical history of liver and kidney transplant, on Prograf, hypertension, and remote history of CVA with residual right arm weakness who presents to emergency room with complaints of right upper extremity numbness and tingling. Started suddenly yesterday eveni ng. It has currently resolved. There was no associated weakness in the muscles, headache, problems with speech, facial asymmetry, problems with balance, neck pain, chest pain, palpitations, nausea or vomiting. The paresthesias started in the right shoulder area and run down to her right hand. Currently it has resolved. She reports similar problem in the left upper extremity couple weeks ago which has resolved completely. CT of the head was without any acute findings. First EKG showed normal sinus rhythm without any acute ischemic changes. However on the monitor the patient was found to have episodes of intermittent atrial flutter. Second EKG was ordered and showed left bundle branch block which is new for her. It has currently resolved also and she is back to sinus with occasional runs of atrial flutter. Review of Systems General: Reports: 10 or more systems reviewed and unremarkable except in HPI and below Medications/Allergies Home Medications Medication Instructions Recorded Confirmed Last Taken Type acidophilus 100 million cap PO 11/02/19 05/09/21 Unknown History cell-pectin, citrus 10 mg capsule aspirin 81 mg tablet,delayed 81 mg PO DAILY 11/02/19 05/09/21 Unknown History release cholecalciferol (vitamin D3) 75 3,000 unit PO DAILY 11/02/19 05/09/21 Unknown History mcg (3,000 unit) tablet magnesium oxide 400 mg PO DAILY 11/02/19 05/09/21 Unknown History multivitamin 1 tab PO DAILY 11/02/19 05/09/21 Unknown History vitamins A,C,K-qcnh-hhgasp 14,320 1 cap PO BID 11/02/19 05/09/21 Unknown History unit-226 mg-200 unit capsule Sole supports #1 ea 01/31/20 05/09/21 Unknown Rx metoprolol tartrate 25 mg tablet See Rx Instructions .ROUTE 09/26/20 05/09/21 Unknown Rx .COMPLEX #180 tab tacrolimus 0.5 mg capsule, 2.5 mg PO DAILY cap 05/09/21 05/09/21 Unknown History immediate-release tacrolimus 1 mg capsule, 3 mg PO Q12H cap 05/09/21 05/09/21 Unknown History immediate-release Allergies Allergy/AdvReac Type Severity Reaction Status Date / Time Penicillins Allergy rash Verified 05/09/21 10:59 PFSH Acute PFSH: Medical History (Updated 07/09/21 @ 01:13 by Gerardo Rao) CVA (cerebral vascular accident) Hyperlipidemia Hypertension LVH (left ventricular hypertrophy) Palpitations PVC (premature ventricular contraction) Surgical History Kidney transplant recipient Liver transplant recipient Family History Mother Stroke Hypertension Family/Other Cancer Social History Smoking and tobacco status: never smoked Alcohol intake: never Current occupational status: retired Vitals/I&O/Wt Last Vital Signs Temp 97.4 F L 07/08/21 20:09 Pulse 100 07/09/21 00:39 Resp 18 07/09/21 00:39 BP 172/100 07/09/21 00:39 Pulse Ox 98 07/09/21 00:39 07/08/21 07/08/21 07/09/21 14:59 22:59 06:59 Intake Total 1000 / 1000 Balance 1000 / 1000 Weight last 48 hrs Weight 64.864 kg Physical Exam Narrative: EXAM NARRATIVE: The patient is awake alert oriented. No acute distress. Mood and affect are appropriate. Responses are adequate. Normal speech. Skin warm and dry. Moist mucous brains Eyes PERRL, extraocular muscles are intact Neck supple. No JVD Lungs are clear to auscultation bilaterally. No wheezes or crackles Heart S1, S2, regular Abdomen soft, nontender, bowel sounds are present Extremities no edema no cyanosis no calf tenderness bilaterally Neuro examination is nonfocal. No focal muscle weakness or sensory loss. Cereb ellar tests are within normal range. Data : 07/08/21 20:45 07/08/21 20:45 Other Labs: Laboratory Results WBC 4.3 10^3/uL (4.0-10.0) 07/08/21 20:45 RBC 4.06 10^6/uL (4.1-5.3) L 07/08/21 20:45 Hgb 12.6 g/dL (11.5-15.3) 07/08/21 20:45 Hct 37.1 % (37.0-47.0) 07/08/21 20:45 MCV 91.4 fl (81-99) 07/08/21 20:45 MCH 31.0 pg (28.0-34.0) 07/08/21 20:45 MCHC 34.0 g/dL (30.0-36.0) 07/08/21 20:45 RDW 13.3 % (12.1-15.1) 07/08/21 20:45 Plt Count 171 10^3/cmm (130-400) 07/08/21 20:45 MPV 10.4 fL (7.4-10.4) 07/08/21 20:45 Neut % (Auto) 44.9 % 07/08/21 20:45 Lymph % (Auto) 42.8 % 07/08/21 20:45 [place] % (Auto) 7.4 % 07/08/21 20:45 Eos % (Auto) 4.0 % 07/08/21 20:45 Baso % (Auto) 0.7 % 07/08/21 20:45 Neut # (Auto) 1.93 10^3/uL (1.8-7.7) 07/08/21 20:45 Lymph # (Auto) 1.8 10^3/uL (0.8-4.8) 07/08/21 20:45 [place] # (Auto) 0.3 10^3/uL (0.2-0.9) 07/08/21 20:45 Eos # (Auto) 0.2 10^3/uL (0.0-0.8) 07/08/21 20:45 Baso # (Auto) 0.0 10^3/uL (0.0-0.1) 07/08/21 20:45 Nucleated RBC % (auto) 0 % 07/08/21 20:45 Nucleated RBCs # 0.0 /100WBC 07/08/21 20:45 Sodium 138 mmol/L (136-145) 07/08/21 20:45 Potassium 3.7 mmol/L (3.5-5.1) 07/08/21 20:45 Chloride 100 mmol/L (98-107) 07/08/21 20:45 Carbon Dioxide 25 mmol/L (22-29) 07/08/21 20:45 Anion Gap 16.7 (5-19) 07/08/21 20:45 BUN 16 mg/dL (8-23) 07/08/21 20:45 Creatinine 0.6 mg/dL (0.5-0.9) 07/08/21 20:45 GFR Calculation Not Reportable 07/08/21 20:45 Glucose 94 mg/dL (65-115) 07/08/21 20:45 Calculated Osmolality 287 mOsm/kg (285-295) 07/08/21 20:45 Calcium 8.6 mg/dL (8.5-10.5) 07/08/21 20:45 Total Bilirubin 0.2 mg/dL (0.15-1.2) 07/08/21 20:45 AST 22 U/L (0-32) 07/08/21 20:45 ALT 23 U/L (0-33) 07/08/21 20:45 Alkaline Phosphatase 79 IU/L (35-105) 07/08/21 20:45 Creatine Kinase 70 U/L (26-192) 07/08/21 20:45 Troponin T Baseline 10 ng/L (0-10) 07/09/21 00:20 C-Reactive Protein 0.5 mg/L (0.0-4.9) 07/08/21 20:45 Total Protein 6.7 g/dL (6.6-8.7) 07/08/21 20:45 Albumin 4.1 g/dL (3.5-5.2) 07/08/21 20:45 Globulin 2.6 g/dL (1.3-4.6) 07/08/21 20:45 Urine Color Yellow (Yellow) 07/08/21 21:05 Urine Appearance Clear (CLEAR) 07/08/21 21:05 Urine pH 7 (5-7) 07/08/21 21:05 Ur Specific [place] 1.010 (1.005-1.030) 07/08/21 21:05 Urine Protein Neg (Negative) 07/08/21 21:05 Urine Glucose (UA) Norm (Normal) 07/08/21 21:05 Urine Ketones Negative (Negative) 11/14/21 21:05 Urine Blood Neg (Negative) 07/08/21 21:05 Urine Nitrate Negative (Negative) 07/08/21 21:05 Urine Bilirubin Neg (Negative) 07/08/21 21:05 Urine Urobilinogen Norm mg/dL (Negative) 07/08/21 21:05 Ur Leukocyte Esterase Negative (Negative) 07/08/21 21:[address] 07/08/21 20:27 IMPRESSION: There are senescent changes of the brain as described above. No evidence for large acute ischemic infarction or acute intracranial injury. Radiation Dose CTDIVOL = (mGy): DLP = 794.54 (mGy-cm) A&P Assessment and plan (1) Paresthesia: Status: Acute (2) Hypertension: Status: Acute (3) Left bundle branch block: Status: Acute (4) Atrial flutter: Status: Acute (5) Hyperlipidemia: Status: Acute Qualifiers: Hyperlipidemia type: mixed hyperlipidemia Qualified Code(s): E78.2 - M ixed hyperlipidemia Additional A&P Information Echo Wright is a 76 year old female with past medical history of liver and kidney transplant, on Prograf, hypertension, and remote history of CVA with residual right arm weakness who presents to emergency room with complaints of right upper extremity numbness and tingling. First EKG showed normal sinus rhythm without any acute ischemic changes. However on the monitor the patient was found to have episodes of intermittent atrial flutter. Second EKG was ordered and showed left bundle branch block which is new for her. It has currently resolved also and she is back to sinus with occasional runs of atrial flutter. Paresthesias. Her neuro exam is completely normal. The paresthesias could be from tacrolimus side effect or due to abnormally elevated blood pressure. If she develops any new neurologic symptoms or new paresthesias we might consider MRI. It is currently has resolved. Level monitor her. Hypertension. It is currently recorded as 172/100. It is possible that at home when she experienced the symptoms it was even higher. We will resume her home metoprolol. Will order as needed labetalol. Left bundle branch block and suspected atrial flutter. Dr. Hughes is consulted. She recommended 1 dose of Lovenox and aspirin. She will see the patient in the morning. Monitor patient's EKG and troponin level. DVT prophylaxis. Received Lovenox in ER. CODE STATUS. She wants to be full code. The plan of care was discussed with the patient and her at the bedside. They verbalized understanding and agreement. Attestations Medical Necessity Statement*: Observation Coding Level of Care Code Acute Funeral Limousine Driver for Mariliag Fwd Diagnoses Paresthesia R20.2 Hypertension I10 Left bundle branch block I44.7 Atrial flutter I48.92 Hyperlipidemia E78.2 Hyperlipidemia type: mixed hyperlipidemia
[2021-07-09 05:41] LABS: Troponin 5 2HR 9.84 ng/L (0-10)
[2021-07-09 05:53] LABS: Troponin 5 2HR Delta -0.16 ABS# (0-10)
--- NOTE | 2021-07-09 06:11 | ECG_ITS ---
[facility] Test Date: 2021-07-09 Pat Name: Echo Wright Department: Room: 107 Gender: Female Signals Collection Technician: : 1945 Requested By: Rashi Mancia Order Number: [id number] Stephanie MD: Taylor Hughes M.D. Measurements Intervals [place] Rate: 71 P: 76 [place]: 164 QRS: 36 QRSD: 92 T: 46 QT: 398 QTc: 434 Interpretive Statements SINUS RHYTHM POSSIBLE ANTERIOR MYOCARDIAL INFARCTION , OF INDETERMINATE AGE [30 ms Q WAVE IN V3/V4, OR R < 0.2 mV IN V4] Compared to ECG 07/08/2021 21:59:37 Myocardial infarct finding now present Electronically Signed On 07-10-2021 12:59:14 SHELLS INSPECTOR by Taylor Hughes M.D. [id number]
--- NOTE | 2021-07-09 07:03 | PM.CONSULT ---
Providers/Reason For Consult Consulting Physician/Specialty*: Dr. 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 MRI brain with 1.5 cm left singh radiata ischemic stroke. She presented with complaints of right shoulder and arm pain along with tingling and numbness on and off for last few days. CTA did not show any acute abnormalities. As conveyed to me last night by ER physician, she went into atrial flutter with heart rate in 110s to 120s for a short duration followed by left bundle branch block with heart rate in 80s. Unfortunately, I do not have the telemetry or EKG available to confirm. Shortly thereafter patient went back in sinus rhythm. EKG on arrival sinus rhythm with normal axis normal EKG. EKG from this morning sinus rhythm with possible anterior AL of indeterminate age (poor anterior R wave progression and T wave inversion V1 to V3 was noted. Patient denies having any chest pain or shortness of breath. No leg swelling or shortness of breath on exertion. No URI or UTI-like symptoms. At the time of evaluation patient remains chest pain-free. Troponins x3 ~30 without any delta change. Review of Systems General: Reports: 10 or more systems reviewed and unremarkable except in HPI and below Meds/Allergies Home Medications and Allergies Home Medications Medication Instructions Recorded Confirmed Last Taken Type aspirin 81 mg tablet,delayed 81 mg PO QAM 11/02/19 07/09/21 Unknown History release magnesium oxide 400 mg PO DAILY 11/02/19 07/09/21 Unknown History multivitamin 1 tab PO BID 11/02/19 07/09/21 Unknown History Sole supports #1 ea 01/31/20 07/09/[address] Noel Probiotics 1 cap PO BID 07/09/21 07/09/21 Unknown History Macuguard Eye Vitamins 1 cap PO DAILY 07/09/21 07/09/21 Unknown History ascorbic acid (vitamin C) [Vitamin 1,000 mg PO BID 07/09/21 07/09/21 Unknown History C] cholecalciferol (vitamin D3) 125 mcg PO QAM 07/09/21 07/09/21 Unknown History [Vitamin D3] coenzyme Q10 [CoQ-10] 100 mg PO DAILY 07/09/21 07/09/21 Unknown History docusate sodium [Colace] 100 mg PO BID 07/09/21 07/09/21 Unknown History metoprolol tartrate 12.5 mg PO BID 07/09/21 07/09/21 Unknown History omega-3 fatty acids [Fish Oil] 3,000 mg PO DAILY 07/09/21 07/09/21 Unknown History tacrolimus See Rx Instructions .ROUTE .COMPLEX 07/09/21 07/09/21 Unknown History zinc 50 mg PO DAILY PRN 07/09/21 07/09/21 Unknown History Allergies Allergy/AdvReac Type Severity Reaction Status Date / Time Penicillins Allergy rash Verified 07/09/21 09:23 PFSH Acute PFSH: Medical History (Updated 07/09/21 @ 13:22 by Taylor Hughes MD) CVA (cerebral vascular accident) Hyperlipidemia Hypertension LVH (left ventricular hypertrophy) Palpitations PVC (premature ventricular contraction) Surgical History Kidney transplant recipient Liver transplant recipient Family History Mother Stroke Hypertension Family/Other Cancer Social History Smoking and tobacco status: never smoked Alcohol intake: never Current occupational status: retired Vitals/I&O/Wt Last Vital Signs Temp 97.9 F 07/09/21 02:22 Pulse 70 07/09/21 04:28 Resp 30 H 07/09/21 02:22 BP 126/84 07/09/21 02:22 Pulse Ox 96 07/09/21 02:22 07/08/21 07/09/21 07/09/21 22:59 06:59 14:59 Intake Total 1000 / 1000 Balance 1000 / 1000 Weight last 48 hrs Weight 143 lb Physical Exam Narrative: EXAM NARRATIVE: GENERAL: Averagely built and averagely nourished in no acute distress HEENT: Pupils equal round reactive to light. No pallor or icterus. NECK: No JVD. No carotid bruit. CARDIOVASCULAR SYSTEM: S1-S2 regular. No murmur rubs or gallops. RESPIRATORY SYSTEM: Chest clear to auscultation. No wheezes rhonchi or rubs heard. No use of accessory muscles. ABDOMEN: Soft, nontender and nondistended. Normal bowel sounds present. EXTREMITIES: No cyanosis or clubbing. No edema. No signs of chronic venous insufficiency. CASINO SHIFT MANAGER: Patient is alert oriented ?3. No focal neurological deficits. Data Other Data: Other data: 12/04/2020 Carotid Doppler. CONCLUSIONS Bilateral ICA stenosis less than 50%. Mild carotid atherosclerosis. Transesophageal echocardiogram October 2018: Normal left and right-sided systolic function. Ejection fraction of 65%. No regional wall motion abnormalities. Normal right ventricular size and systolic function. Grade 2 atheroma noted in aortic arch. Event monitor September 2018: Baseline rhythm is sinus rhythm. There were three 4-7 beats run of ventricular tachycardia and one short run of atrial tachycardia that were asymptomatic. No episodes of atrial fibrillation Lexiscan stress test April 2019: Unremarkable myocardial perfusion imaging. Transient ischemic dilation index of 1.28. Left ventricular ejection fraction of 89% with no regional wall motion abnormality. A&P Assessment and plan (1) Paresthesia: Right arm paresthesia and possible pain -Some EKG changes noted from this morning -Given left bundle branch block and history of CVA, I will plan for another stress test. Status: Acute (2) Left bundle branch block: New onset left bundle branch block of short duration; ischemia related versus rate related aberrancy. Patient however was not tachycardic at the time of left bundle branch block as reported -Actual strips not available for review Status: Acute (3) Atrial flutter: Short duration with RVR noted in ER -Spontaneous conversion to sinus rhythm -Continue metoprolol and will discharge home on anticoagulation Status: Acute Qualifiers: Atrial flutter type: unspecified Qualified Code(s): I48.92 - Unspecified atrial flutter (4) PVC (premature ventricular contraction): Status: Acute (5) CVA (cerebral vascular accident): Status: Acute Qualifiers: CVA mechanism: unspecified Qualified Code(s): I63.9 - Cerebral infarction, unspecified (6) Hypertension: Status: Acute Qualifiers: Hypertension type: primary hypertension Qualified Code(s): I10 - Essential (primary) hypertension (7) Hyperlipidemia: Status: Acute Qualifiers: Hyperlipidemia type: mixed hyperlipidemia Qualified Code(s): E78.2 - Mixed hyperlipidemia Consult Attestations Time Spent in Patient Care: 16 - 35 minutes (>than 50% of time spent in counselling and/or direct pt care on unit). Coding Level of Care Code Acute Cuff Setter Overlock for [facility] Fwd Diagnoses Paresthesia R20.2 Left bundle branch block I44.7 Atrial flutter I48.92 Atrial flutter type: unspecified PVC (premature ventricular contraction) I49.3 CVA (cerebral vascular accident) I63.9 CVA mechanism: unspecified Hypertension I10 Hypertension type: primary hypertension Hyperlipidemia E78.2 Hyperlipidemia type: mixed hyperlipidemia
[2021-07-09 07:17] LABS: Troponin 5 6HR 8.01 ng/L (0-10)
[2021-07-09 07:21] LABS: Troponin 5 6HR Delta -1.99 ng/L (0-12)
[2021-07-09] MEDS: aspirin 81 mg EC Tablet PO (08:38)
--- NOTE | 2021-07-09 09:16 | CT_ITS ---
WS: [id number] CTA HEAD AND NECK TECHNIQUE: Contrast enhanced CTA of the head and neck with coronal and sagittal reformatted images an d maximum intensity projection (MIP) images. NASCET criteria utilized. CLINICAL INFORMATION: tia COMPARISON: None. DLP: 1579.[address] scans at [facility] use at least one of these dose optimization techniques: automated e xposure control; mA and/or kV adjustment per patient size (includes targeted exams where dose is matc hed to clinical indication); or iterative reconstruction. FINDINGS: RIGHT: Right common carotid artery is patent. Mild calcified atheromatous disease right carotid bulb. No significant right ICA stenosis. Right ICA is patent to the skull base. LEFT: Left common carotid artery is patent. Mild calcified atheromatous disease left carotid bulb. No significant left ICA stenosis. Left ICA is patent to the skull base. INTRACRANIAL CTA: Both vertebral arteries are patent. Basilar artery is patent. Patent persistent right BLOW MACHINE TENDER STARCH SPRAYING. Mild to moderate segmental stenosis in the BLOW MACHINE TENDER STARCH SPRAYING territories bilaterally similar to previous. Distal vessel s remain patent. Both ICAs are patent at the skull base. Cavernous carotid calcification. Absent right A1 segment. Nor mal vascularity to the TRISTAN and MCA territories bilaterally. Mild stenosis left proximal M1 segment. D istal vessels are patent. Azygos TRISTAN. A few tiny right thyroid nodules. Chronic appearing infarcts in the left singh radiata. Mild spondyl itic changes cervical spine with disc space narrowing worse at C4-C6. CT/CT angio headneck* [id number] IMPRESSION: 1. Overall no significant changes compared to 2019 2. No significant ICA stenosis bilaterally. 3. Mild stenosis left proximal M1 segment. Distal left MCA vessels are patent. 4. Mild to moderate segmental stenosis BLOW MACHINE TENDER STARCH SPRAYING territories bilaterally unchanged f rom previous. 5. No flow-limiting intracranial stenosis. 6. Persistent right BLOW MACHINE TENDER STARCH SPRAYING. 7. Moderate cavernous carotid calcification. 8. Normal variant Hypoplastic right A1 segment with azygos TRISTAN
--- NOTE | 2021-07-09 09:17 | ECG_ITS ---
[facility] Test Date: 2021-07-09 Pat Name: Echo Wright Department: Room: 107 Gender: Female Enrollment Processor: : 1945 Requested By: Taylor Hughes Order Number: [id number] Stephanie MD: Taylor Hughes M.D. Interpretive Statements NAME OF STUDY: LEXISCAN SESTAMIBI STRESS TEST INDICATION: Right arm pain, LBBB PROCEDURE: At the baseline, the blood pressure was 151/85 mmHg, oxygen saturation 96% with a heart rate of 77 bpm. The electrocardiogram showed normal sinus rhythm, normal axis. Poor anterior R wave progression. Nonspecific ST depression. The Lexiscan was infused over a period of 20 seconds. A total of 0.4 milligrams of Lexiscan was infused. The stress phase was continued for a total of 5 minutes. Heart rate at the end of the stress phase was 111 bpm, oxygen saturation 98% with a blood pressure of 160/86 mmHg. The EKG at the peak infusion revealed sinus tachycardia with PVC's and intermittent QRS widening (left bundle branch block like morphology). Sestamibi was injected 20 seconds after the Lexiscan infusion. Blood pressure at the end of the recovery phase was 155/84 mmHg, oxygen saturation 98% with a heart rate of 88 beats per minute. CONCLUSION: 1. No significant EKG changes with the LexiScan infusion. 2. No LexiScan induced chest pain. During Lexiscan infusion PVCs as well as intermittent QRS widening widening noted (LBBB like morphology). 3. Normal blood pressure and heart rate response. 4. Sestamibi/sestamibi perfusion scan pending; see separate report. Electronically Signed On 07-09-2021 14:02:26 PROJECT CONTROL MANAGER by Taylor Hughes M.D. [email or web address]
--- NOTE | 2021-07-09 09:19 | NMCV_ITS ---
NM garth perf SPECT r/s* [id number] Echo Wright Age: 76 Gender: F : 1945 Exam Date: 07/09/2021 09:19 Ordering Phys: Taylor Hughes MD ([email or web address]) Technologist: PEGGY Guevara Exam Location: [facility] Indications: RIGHT ARM PAIN , NUMBNESS; left bundle branch block STRESS TEST [facility] for [facility] IMAGE PROTOCOL Rest/Stress 1 Lexiscan Day Radiopharmaceutical Dose (mCi) Administration Site Administered by Rest: Tc-99m 10.8 IV PEGGY Wheeler Sestamibi Stress:Tc-99m 32.5 IV PEGGY Wheeler Sestamibi Rest: 09-Jul-2021 60 Discovery 630 Stress: 09-Jul-2021 30 Discovery 630 0.4mg Lexiscan. Images obtained in supine and prone position. SPECT RESULTS Technical Quality: Excellent Raw Data Analysis: Normal Image Corrections: No attenuation or motion correction applied Summed Stress Score: 0 Summed Rest Score: 0 Summed Difference Score: 0 PERFUSION FINDINGS SPECT images demonstrate homogeneous tracer distribution throughout the myocardium. FUNCTIONAL RESULTS (calculated via Gated SPECT) Stress Image LV EF (%): 85 Stress EDV (mL):46 TID: 0.96 Stress ESV (mL):7 FUNCTIONAL FINDINGS: The left ventricle is normal in size. Transient Ischemia Dilatation of 0.96. There is normal left ventricular systolic function. The left ventricular ejection fraction is hyperdynamic with a value of 85%. There is hyperdynamic left ventricular wall thickening. Normal end-diastolic end-systolic volumes. IMPRESSIONS 1. Myocardial perfusion imaging is normal. 2. Overall left ventricular systolic function is normal without regional wall motion abnormalities. 3. The left ventricular ejection fraction is hyperdynamic with a value of 85% 4. EKG portion of the study will be reported separately. Taylor Hughes MD (Electronically Signed) Final Date: 09 July 2021 13:51 Amended: 09 July 2021 14:03 C
--- NOTE | 2021-07-09 09:26 | PC.CHAP ---
Pastoral Care Encounter/Spiritual Assessment Type of Contact [] Declined access service representative visit [] Patient/Family/Request visit [] Outpatient visit [] Follow-up visit [] Physician referral [] Code/Alert [x] Routine visit [] Staff referral [] Actively dying [] Patient sleeping [x] Family support [] [] Out of room [] Palliative care [] [] Receiving care in room [] Pre-surgical visit [] Trauma [] Long length of stay [] ICU visit [] Other: Relational/Emotional Strength [] Patient feels connected with others/family/visitors/staff [] Distress [] Loneliness/isolation [] Abandonment Spirituality of Patient [] Person of Annie [] Attends Congregational of their Annie [] Believes in Prayer [] Reads Bible or Caodaism materials [] There are Spiritual issues to be addressed Double Bottom Driver Interventions [x] Prayer [x] Active listening [x] Non-anxious presence [x] Spiritual/emotional support [] Crisis/trauma care [] Spiritual counseling [] Bereavement support [] Provided bereavement packet [] Provided Bible/devotional materials [] Provided toy/stuffed animal, coloring book to patient or family member [] Provided Communion [] Anointing/[place] [] Salvation [x] Completed spiritual assessment [] Other: Impact on Illness or Injury [] Angry [] Fearful [] Anxious [] Often cries [] Exhaustion [] Unable to work [] Unable to attend pentecostalism [] Unable to walk/stand [] Unable to read [] Unable to drive [] Unable to eat/drink [] Unable to sleep [] Unable to be with family [] Patient intubated [] Other: Summary patient resting well.. spouse present. prayed, giving thanks for strength and healing Time spent with patient 5 min
[2021-07-09 09:42] LABS: Basophils % 0.9 %; Eosinophils # 0.2 10^3/uL (0.0-0.8); Eosinophils % 3.5 %; Hematocrit 40.1 % (37.0-47.0); Hemoglobin 13.2 g/dL (11.5-15.3); Lymphocytes # 1.5 10^3/uL (0.8-4.8); Lymphocytes % 36.3 %; Mean Corpuscular HGB Conc 32.9 g/dL (30.0-36.0); Mean Corpuscular Hemoglobin 30.6 pg (28.0-34.0); Mean Platelet Volume 10.2 fL (7.4-10.4); Monocytes # 0.3 10^3/uL (0.2-0.9); Monocytes % 6.6 %; Neutrophils # 2.23 10^3/uL (1.8-7.7); Neutrophils % 52.7 %; Nucleated Red Blood Cells % 0 %; Platelet Count 166 10^3/cmm (130-400); Red Blood Count 4.31 10^6/uL (4.1-5.3); Red Cell Distribution Width 13.4 % (12.1-15.1); White Blood Count 4.2 10^3/uL (4.0-10.0)
--- NOTE | 2021-07-09 09:44 | PC.NURSE ---
AM dose of Metoprolol 25mg held per doctors order until after Lexiscan this morning. Will administer med when pt returns from [email or web address].
[2021-07-09] MEDS: iohexol 350 mg/mL 100 mL Btl IV (09:53)
[2021-07-09 10:09] LABS: NT Pro B Type Natriuretic Pept 963 pg/mL (0-450); Procalcitonin 0.04 ng/mL (0-0.5); Thyroid Stimulating Hormone 3.32 uIU/mL (0.27-4.20)
[2021-07-09 10:22] LABS: Alanine Aminotransferase 24 U/L (0-33); Alkaline Phosphatase 65 IU/L (35-105); Anion Gap 14.5 (5-19); Aspartate Amino Transferase 26 U/L (0-32); Blood Urea Nitrogen 9 mg/dL (8-23); C Reactive Protein 0.4 mg/L (0.0-4.9); Carbon Dioxide 23 mmol/L (22-29); Chloride 106 mmol/L (98-107); Chol HDL Ratio 2.73 mg/dL (0.0-4.40); Cholesterol 213 mg/dL (0-200); Globulin 2.5 g/dL (1.3-4.6); Glucose 96 mg/dL (65-115); HDL Cholesterol 78 mg/dL (60-100); Iron 90 ug/dL (37-145); LDL Cholesterol Calculated 119 mg/dL (50-129); Osmolality Calculated 287 mOsm/kg (285-295); Percent Saturation 35.7 % (20-50); Potassium 4.5 mmol/L (3.5-5.1); Sodium 139 mmol/L (136-145); Total Bilirubin 0.4 mg/dL (0.15-1.2); Total Iron Binding Capacity 252 mcg/dl; Total Protein 6.5 g/dL (6.6-8.7); Triglycerides 79 mg/dL (0-150); Unsaturated Iron Binding 162 ug/dL (112-347); VLDL Cholestrol Calculation 16 mg/dL (0-30)
[2021-07-09] MEDS: regadenoson 0.4 Mg/5 ml Syringe IVP (10:51)
--- NOTE | 2021-07-09 11:16 | PC.OT ---
OT EVALUATION ORDERS RECEIVED; PATIENT AT [facility] PER NURSING. WILL ATTEMPT AGAIN AT A LATER TIME.
[2021-07-09] MEDS: tacrolimus 0.5 mg Capsule 3 MG PO (12:20)
--- NOTE | 2021-07-09 13:29 | PC.OT ---
OT EVALUATION ORDERS RECEIVED. PATIENT DEMONSTRATES NO DEFICITS IN ADL/MRADL, MX STRENGTH OR ENDURANCE. NO FURTHER SKILLED OT REQUIRED AT THIS TIME.
--- NOTE | 2021-07-09 14:42 | P.DS_ITS ---
Discharge Providers Date of Admission: 07/09/21 01:00 Date of Discharge: July 09, 2021 Attending Provider at Admission: Gerardo Rao Attending Provider at Discharge: Rolando Sarkar MD Primary Care Provider: Smith Martínez DO Diagnoses at Discharge Discharge Diagnosis (1) Paresthesia: Status: Acute (2) Left bundle branch block: Status: Acute (3) Atrial flutter: Status: Acute Qualifiers: Atrial flutter type: unspecified Qualified Code(s): I48.92 - Unspecified atrial flutter (4) PVC (premature ventricular contraction): Status: Acute (5) CVA (cerebral vascular accident): Status: Acute Qualifiers: CVA mechanism: unspecified Qualified Code(s): I63.9 - Cerebral infarction, unspecified (6) Hypertension: Status: Acute Qualifiers: Hypertension type: primary hypertension Qualified Code(s): I10 - Essential (primary) hypertension (7) Hyperlipidemia: Status: Acute Qualifiers: Hyperlipidemia type: mixed hyperlipidemia Qualified Code(s): E78.2 - Mixed hyperlipidemia Reason for Visit Reason for Visit: Rt arm Numb Hospital Course Hospital Course Echo Wright is a 76 year old female with PMhx of Hepatitis C s/p liver and kidney transplant, h/o thrombocytopenia and 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 MRI brain with 1.5 cm left singh radiata ischemic stroke. She presented with complaints of right shoulder and arm pain along with tingling and numbness on and off for last few days. CTA did not show any acute abnormalities. As per the documented patient in the ER,went into atrial flutter for a short duration with heart rate in 110s to 120s followed by a short duration of left frontal branch block with heart rate in the 80s. Patient did not have any further presenting symptoms. She was admitted under observation. CT head and neck was done which was negative for any acute abnormalities. Because of new possible transient left bundle branch block cardiology was consulted and patient underwent cardiac stress test which was negative for any acute ischemia but patient did have PVCs as well as intermittent QRS widening with left bundle branch block morphology. During hospitalization patient was found to have high blood pressure for which her antihypertensives were adjusted. Patient symptoms could be secondary to tacrolimus toxicity for which levels have been sent out. She has been discharged in hemodynamically stable condition with advised to follow-up with cardiology as an outpatient within next 2 weeks. She started on anticoagulation after discussion regarding merits and demerits. Discharge Data Data Completed and Pending: Completed Studies During Hospitalization Category Date Time Status CT angio headneck * [id number]/[id number] Rout ine Cat Scan 07/09/21 09:[address] head wo con* [id number] Urgent Cat Scan 07/08/21 20:27 Completed Sestamibi Stress Test Request Routi ne Exams 07/09/21 09:17 Completed NM garth perf SPECT r/s* [id number] Routin e Nuc Med 07/09/21 09:19 [place] [id number] Urge nt Ultrasound 07/08/21 20:27 Completed Pending at discharge Category Date Time Status Complete Blood Co unt w/Auto AM LABS Lab 07/10/21 04:00 Ordered Comprehensive Met abolic Panel AM LA BS Lab 07/10/21 04:00 Ordered Erythrocyte Sedim entation Rate Stat Lab 07/09/21 13:42 Received FK [id number] (Tacrolimu s) Routine Lab 07/09/21 13:42 Received Magnesium AM LABS Lab 07/10/21 04:00 Ordered CV. echo complete * [id number] Routine Ultrasound 07/10/21 07:00 Ordered Labs from last 24 hours 07/09/21 07/09/21 07/09/21 13:42 13:42 09:25 WBC 4.2 RBC 4.31 Hgb 13.2 Hct 40.1 MCV 93.0 MCH 30.6 MCHC 32.9 RDW 13.4 Plt Count 166 MPV 10.2 Neut % (Auto) 52.7 Lymph % (Auto) 36.3 [place] % (Auto) 6.6 Eos % (Auto) 3.5 Baso % (Auto) 0.9 Neut # (Auto) 2.23 Lymph # (Auto) 1.5 [place] # (Auto) 0.3 Eos # (Auto) 0.2 Baso # (Auto) 0.0 Nucleated RBC % (a uto) 0 Nucleated RBCs # 0.0 ESR Pending Sodium Potassium Chloride Carbon Dioxide Anion Gap BUN Creatinine GFR Calculation Glucose Calculated Osmolal ity Calcium Iron TIBC % Saturation Unsat Iron Binding Total Bilirubin AST ALT Alkaline Phosphata se Creatine Kinase Troponin T Baselin e Troponin T 120 Min [place] Troponin T Troponin T Hi Sens 6Hr Troponin T Hi Sens 6Hr Delta C-Reactive Protein NT-Pro-B Natriuret Pep Total Protein Albumin Globulin Triglycerides Cholesterol LDL Cholesterol, C alc Total VLDL Cholest lanie HDL Cholesterol Cholesterol/HDL Ra natasha Procalcitonin TSH Urine Color Urine Appearance Urine pH Ur Specific Gravit y Urine Protein Urine Glucose (UA) Urine Ketones Urine Blood Urine Nitrate Urine Bilirubin Urine Urobilinogen Ur Leukocyte Sandra ase Tacrolimus (FK 506 ) Pending 07/09/21 07/09/21 07/09/21 09:25 06:50 03:50 WBC RBC Hgb Hct MCV MCH MCHC RDW Plt Count MPV Neut % (Auto) Lymph % (Auto) [place] % (Auto) Eos % (Auto) Baso % (Auto) Neut # (Auto) Lymph # (Auto) [place] # (Auto) Eos # (Auto) Baso # (Auto) Nucleated RBC % (a uto) Nucleated RBCs # ESR Sodium 139 Potassium 4.5 Chloride 106 Carbon Dioxide 23 Anion Gap 14.5 BUN 9 Creatinine 0.5 GFR Calculation Not Reportable Glucose 96 Calculated Osmolal ity 287 Calcium 9.0 Iron 90 TIBC 252 % Saturation 35.7 Unsat Iron Binding 162 Total Bilirubin 0.4 AST 26 ALT 24 Alkaline Phosphata se 65 Creatine Kinase Troponin T Baselin e Troponin T 120 Min [place] 9.84 Delta Troponin T -0.16 L Troponin T Hi Sens 6Hr 8.01 Troponin T Hi Sens 6Hr Delta -1.99 L C-Reactive Protein 0.4 NT-Pro-B Natriuret Pep 963 H Total Protein 6.5 L Albumin 4.0 Globulin 2.5 Triglycerides 79 Cholesterol 213 H LDL Cholesterol, C alc 119 Total VLDL Cholest lanie 16 HDL Cholesterol 78 Cholesterol/HDL Ra natasha 2.73 Procalcitonin 0.04 TSH 3.32 Urine Color Urine Appearance Urine pH Ur Specific Gravit y Urine Protein Urine Glucose (UA) Urine Ketones Urine Blood Urine Nitrate Urine Bilirubin Urine Urobilinogen Ur Leukocyte Sandra ase Tacrolimus (FK 506 ) 07/09/21 07/08/21 07/08/21 00:20 21:05 20:45 WBC RBC Hgb Hct MCV MCH MCHC RDW Plt Count MPV Neut % (Auto) Lymph % (Auto) [place] % (Auto) Eos % (Auto) Baso % (Auto) Neut # (Auto) Lymph # (Auto) [place] # (Auto) Eos # (Auto) Baso # (Auto) Nucleated RBC % (a uto) Nucleated RBCs # ESR Sodium 138 Potassium 3.7 Chloride 100 Carbon Dioxide 25 Anion Gap 16.7 BUN 16 Creatinine 0.6 GFR Calculation Not Reportable Glucose 94 Calculated Osmolal ity 287 Calcium 8.6 Iron TIBC % Saturation Unsat Iron Binding Total Bilirubin 0.2 AST 22 ALT 23 Alkaline Phosphata se 79 Creatine Kinase 70 Troponin T Baselin e 10 Troponin T 120 Min [place] Troponin T Troponin T Hi Sens 6Hr Troponin T Hi Sens 6Hr Delta C-Reactive Protein 0.5 NT-Pro-B Natriuret Pep Total Protein 6.7 Albumin 4.1 Globulin 2.6 Triglycerides Cholesterol LDL Cholesterol, C alc Total VLDL Cholest lanie HDL Cholesterol Cholesterol/HDL Ra natasha Procalcitonin TSH Urine Color Yellow Urine Appearance Clear Urine pH 7 Ur Specific Gravit y 1.010 Urine Protein Neg Urine Glucose (UA) Norm Urine Ketones Negative Urine Blood Neg Urine Nitrate Negative Urine Bilirubin Neg Urine Urobilinogen Norm Ur Leukocyte Sandra ase Negative Tacrolimus (FK 506 ) 07/08/21 20:45 WBC 4.3 RBC 4.06 L Hgb 12.6 Hct 37.1 MCV 91.4 MCH 31.0 MCHC 34.0 RDW 13.3 Plt Count 171 MPV 10.4 Neut % (Auto) 44.9 Lymph % (Auto) 42.8 [place] % (Auto) 7.4 Eos % (Auto) 4.0 Baso % (Auto) 0.7 Neut # (Auto) 1.93 Lymph # (Auto) 1.8 [place] # (Auto) 0.3 Eos # (Auto) 0.2 Baso # (Auto) 0.0 Nucleated RBC % (a uto) 0 Nucleated RBCs # 0.0 ESR Sodium Potassium Chloride Carbon Dioxide Anion Gap BUN Creatinine GFR Calculation Glucose Calculated Osmolal ity Calcium Iron TIBC % Saturation Unsat Iron Binding Total Bilirubin AST ALT Alkaline Phosphata se Creatine Kinase Troponin T Baselin e Troponin T 120 Min [place] Troponin T Troponin T Hi Sens 6Hr Troponin T Hi Sens 6Hr Delta C-Reactive Protein NT-Pro-B Natriuret Pep Total Protein Albumin Globulin Triglycerides Cholesterol LDL Cholesterol, C alc Total VLDL Cholest lanie HDL Cholesterol Cholesterol/HDL Ra natasha Procalcitonin TSH Urine Color Urine Appearance Urine pH Ur Specific Gravit y Urine Protein Urine Glucose (UA) Urine Ketones Urine Blood Urine Nitrate Urine Bilirubin Urine Urobilinogen Ur Leukocyte Sandra ase Tacrolimus (FK 506 ) Addt'l Data from Hospital Stay: Laboratory Results WBC 4.2 10^3/uL (4.0- 10.0) 07/09/21 09:25 RBC 4.31 10^6/uL (4.1 -5.3) 07/09/21 09:25 Hgb 13.2 g/dL (11.5-1 5.3) 07/09/21 09:25 Hct 40.1 % (37.0-47.0 ) 07/09/21 09:25 MCV 93.0 fl (81-99) 07/09/21 09:25 MCH 30.6 pg (28.0-34. 0) 07/09/21 09:25 MCHC 32.9 g/dL (30.0-3 6.0) 07/09/21 09:25 RDW 13.4 % (12.1-15.1 ) 07/09/21 09:25 Plt Count 166 10^3/cmm (130 -400) 07/09/21 09:25 MPV 10.2 fL (7.4-10.4 ) 07/09/21 09:25 Neut % (Auto) 52.7 % 07/09/21 09:25 Lymph % (Auto) 36.3 % 07/09/21 09:25 [place] % (Auto) 6.6 % 07/09/21 09:25 Eos % (Auto) 3.5 % 07/09/21 09:25 Baso % (Auto) 0.9 % 07/09/21 09:25 Neut # (Auto) 2.23 10^3/uL (1.8 -7.7) 07/09/21 09:25 Lymph # (Auto) 1.5 10^3/uL (0.8- 4.8) 07/09/21 09:25 [place] # (Auto) 0.3 10^3/uL (0.2- 0.9) 07/09/21 09:25 Eos # (Auto) 0.2 10^3/uL (0.0- 0.8) 07/09/21 09:25 Baso # (Auto) 0.0 10^3/uL (0.0- 0.1) 07/09/21 09:25 Nucleated RBC % (a uto) 0 % 07/09/21 09:25 Nucleated RBCs # 0.0 /100WBC 07/09/21 09:25 Sodium 139 mmol/L (136-1 45) 07/09/21 09:25 Potassium 4.5 mmol/L (3.5-5 .1) 07/09/21 09:25 Chloride 106 mmol/L (98-10 7) 07/09/21 09:25 Carbon Dioxide 23 mmol/L (22-29) 07/09/21 09:25 Anion Gap 14.5 (5-19) 07/09/21 09:25 BUN 9 mg/dL (8-23) 07/09/21 09:25 Creatinine 0.5 mg/dL (0.5-0. 9) 07/09/21 09:25 GFR Calculation Not Reportable 07/09/21 09:25 Glucose 96 mg/dL (65-115) 07/09/21 09:25 Calculated Osmolal ity 287 mOsm/kg (285- 295) 07/09/21 09:25 Calcium 9.0 mg/dL (8.5-10 .5) 07/09/21 09:25 Iron 90 ug/dL (37-145) 07/09/21 09:25 TIBC 252 mcg/dl 07/09/21 09:25 % Saturation 35.7 % (20-50) 07/09/21 09:25 Unsat Iron Binding 162 ug/dL (112-34 7) 07/09/21 09:25 Total Bilirubin 0.4 mg/dL (0.15-1 .2) 07/09/21 09:25 AST 26 U/L (0-32) 07/09/21 09:25 ALT 24 U/L (0-33) 07/09/21 09:25 Alkaline Phosphata se 65 IU/L (35-105) 07/09/21 09:25 Creatine Kinase 70 U/L (26-192) 07/08/21 20:45 Troponin T Baselin e 10 ng/L (0-10) 07/09/21 00:20 Troponin T 120 Min [place] 9.84 ng/L (0-10) 07/09/21 03:50 Delta Troponin T -0.16 ABS# (0-10) L 07/09/21 03:50 Troponin T Hi Sens 6Hr 8.01 ng/L (0-10) 07/09/21 06:50 Troponin T Hi Sens 6Hr Delta -1.99 ng/L (0-12) L 07/09/21 06:50 C-Reactive Protein 0.4 mg/L (0.0-4.9 ) 07/09/21 09:25 NT-Pro-B Natriuret Pep 963 pg/mL (0-450) H 07/09/21 09:25 Total Protein 6.5 g/dL (6.6-8.7 ) L 07/09/21 09:25 Albumin 4.0 g/dL (3.5-5.2 ) 07/09/21 09:25 Globulin 2.5 g/dL (1.3-4.6 ) 07/09/21 09:25 Triglycerides 79 mg/dL (0-150) 07/09/21 09:25 Cholesterol 213 mg/dL (0-200) H 07/09/21 09:25 LDL Cholesterol, C alc 119 mg/dL (50-129 ) 07/09/21 09:25 Total VLDL Cholest lanie 16 mg/dL (0-30) 07/09/21 09:25 HDL Cholesterol 78 mg/dL (60-100) 07/09/21 09:25 Cholesterol/HDL Ra natasha 2.73 mg/dL (0.0-4 .40) 07/09/21 09:25 Procalcitonin 0.04 ng/mL (0-0.5 ) 07/09/21 09:25 TSH 3.32 uIU/mL (0.27 -4.20) 07/09/21 09:25 Urine Color Yellow (Yellow) 07/08/21 21:05 Urine Appearance Clear (CLEAR) 07/08/21 21:05 Urine pH 7 (5-7) 07/08/21 21:05 Ur Specific Gravit y 1.010 (1.005-1.0 30) 07/08/21 21:05 Urine Protein Neg (Negative) 07/08/21 21:05 Urine Glucose (UA) Norm (Normal) 07/08/21 21:05 Urine Ketones Negative (Negati ve) 07/08/21 21: Urine Blood Neg (Negative) 07/08/21 21:05 Urine Nitrate Negative (Negati ve) 07/08/21 21:05 Urine Bilirubin Neg (Negative) 07/08/21 21:05 Urine Urobilinogen Norm mg/dL (Negat elvin) 07/08/21 21:05 Ur Leukocyte Sandra ase Negative (Negati ve) 07/08/21 21:[address] 07/08/21 20:27 IMPRESSION: There are senescent changes of the brain as described above. No evidence for large acute ischemic infarction or acute intracranial injury. Radiation Dose CTDIVOL = (mGy): DLP = 794.54 (mGy-cm) Head/Neck CTA 07/09/21 09:16 IMPRESSION: 1. Overall no significant changes compared to 2019 2. No significant ICA stenosis bilaterally. 3. Mild stenosis left proximal M1 segment. Distal left MCA vessels are patent. 4. Mild to moderate segmental stenosis APPLIANCE ASSEMBLER territories bilaterally unchanged from previous. 5. No flow-limiting intracranial stenosis. 6. Persistent right APPLIANCE ASSEMBLER. 7. Moderate cavernous carotid calcification. 8. Normal variant Hypoplastic right A1 segment with azygos TRISTAN Lexiscan stress test: IMPRESSIONS 1. Myocardial perfusion imaging is normal. 2. Overall left ventricular systolic function is normal without regional wall m otion abnormalities. 3. The left ventricular ejection fraction is hyperdynamic with a value of 85% 4. EKG portion of the study will be reported separately. Taylor Hughes MD (Electronically Signed) Final Date: 09 July 2021 13:51 Amended: 09 July 2021 14:03 EKG portion: CONCLUSION: 1. No significant EKG changes with the LexiScan infusion. 2. No LexiScan induced chest pain. During Lexiscan infusion PVCs as well as intermittent QRS widening widening noted (LBBB like morphology). 3. Normal blood pressure and heart rate response. 4. Sestamibi/sestamibi perfusion scan pending; see separate report. Vitals: Last Vital Signs Temp 98.7 F 07/09/21 12:00 Pulse 88 07/09/21 12:00 Resp 19 H 07/09/21 12:00 BP 171/81 07/09/21 12:00 Pulse Ox 98 07/09/21 12:00 Discharge Plan Discharge Patient Disposition: Home Condition: Stable Prescriptions: New Eliquis 5 mg Tablet 5 mg PO BID@0900,2100 30 Days Qty: 60 RF: 0 atorvastatin 40 mg Tablet 40 mg PO BEDTIME 30 Days Qty: 30 RF: 0 losartan 25 mg tablet 25 mg PO DAILY Qty: 30 RF: 0 Continued aspirin [Adult Low Dose Aspirin] 81 mg tablet,delayed release (DR/EC) 81 mg PO QAM RF: 0 magnesium oxide 400 mg magnesium tablet 400 mg PO DAILY RF: 0 multivitamin Tablet 1 tab PO BID RF: 0 (DME) Sole supports See Rx Instructions .Route .MEDSUPPLY Qty: 1 RF: 0 Colace 100 mg Capsule 100 mg PO BID RF: 0 tacrolimus 1 mg capsule See Rx Instructions .ROUTE .COMPLEX RF: 0 CoQ-10 100 mg Capsule 100 mg PO DAILY RF: 0 Fish Oil Capsule 3,000 mg PO DAILY RF: [address] Dr Ohhiras Probiotics 1 cap PO BID RF: 0 Macuguard Eye Vitamins 1 cap PO DAILY RF: 0 Changed metoprolol tartrate 25 mg tablet 25 mg PO BID Qty: 0 RF: 0 Discontinued Vitamin C 1,000 mg Tablet 1,000 mg PO BID RF: 0 zinc 50 mg Capsule 50 mg PO DAILY PRN (Reason: unknown) RF: 0 Vitamin D3 125 mcg (5,000 unit) Tablet 125 mcg PO QAM RF: 0 Discharge Orders: Discharge Order (Routine); Ordered 07/09/21 Ordered By: Rolando Sarkar Other Ambulatory Orders: CA cardiac event monitor (Routine) Timeframe: 1 Week Facility: [facility] - Location: Cardiac Diagnostic Laboratory Ordered By: Rolando Sarkar Referrals: Smith Martínez, [Primary Care Provider] - 2 weeks (Blood pressure diary) Discharge Diet: Cardiac and Low Cholesterol Discharge Activity: Resume usual activity Patient Instructions: Opioid Safety Activity Restrictions/Additional Instructions: Please check your blood pressure twice daily and maintain a blood pressure diary and follow-up with your primary care provider for further adjustment of antihypertensives. Please follow-up with your outpatient multiple slide operator as directed. Discharge Attestations Time Spent in Discharge Care*: greater than 30 min Specific Discharge Activities: educating patient, educating and/or supporting family/caregiver, discussing with pcp/other providers, discussing with supervisor case loading/social workers/dc planners, documenting/other paperwork and evaluating patient/reviewing data Status at Discharge: Cognitive status at discharge: cognitively intact , Behavioral status at discharge: cooperative , Functional status at discharge: independent ambulation Overall status at discharge: patient is back to baseline Quality Metrics Clinical Quality Measures During this hospital stay, did patient experience: None Coding Level of Care Code Acute Chg FW DC note Diagnoses Paresthesia R20.2 Left bundle branch block I44.7 Atrial flutter I48.92 Atrial flutter type: unspecified PVC (premature ventricular contraction) I49.3 CVA (cerebral vascular accident) I63.9 CVA mechanism: unspecified Hypertension I10 Hypertension type: primary hypertension Hyperlipidemia E78.2 Hyperlipidemia type: mixed hyperlipidemia
[2021-07-09] MEDS: apixaban 5 mg Tablet PO (15:10)
--- NOTE | 2021-07-09 17:01 | PC.NURSE ---
1650 - IV removed for discharge catheter tip intact, pt karen well.
--- NOTE | 2021-07-09 17:30 | PC.PT ---
Per OT screening, patient safely independent with transfers and ambulation in room, with no needs, states has canes and walker at home as needed and familiar with prior known home exercise program she had from her stroke; no PT needs indicated at this time.
[2021-07-10 20:11] LABS: Erythrocyte Sedimentation Rate 2 mm/hr (0-15)
== END 2021-07-09 17:00 | disposition home or self-care (01) ==
LOC: ER 07-09 01:06 → CSU 07-09 01:14
PROVIDERS: Admitting Provider Internal Medicine; Emergency Provider Emergency Medicine; PCP Electrodiagnostic Medicine; Visit Provider Student in an Organized Health Care Education/Training Program
DX: I63.9 Cerebral infarction, unspecified (principal); R20.2 Paresthesia of skin; I10 Essential (primary) hypertension; I44.7 Left bundle-branch block, unspecified; I48.92 Unspecified atrial flutter; E78.2 Mixed hyperlipidemia; Z79.82 Long term (current) use of aspirin; B19.20 Unspecified viral hepatitis C without hepatic coma; Z94.0 Kidney transplant status; Z94.4 Liver transplant status; R20.0 Anesthesia of skin; M79.601 Pain in right arm; Z86.73 Personal history of transient ischemic attack (TIA), and cerebral infarction without residual deficits
CPT/HCPCS: 36415; 70450; 70496; 70498; 78452; 80053; 80061; 80197; 81003; 82550; 83540; 83550; 83880; 84145; 84443; 84484; 85025; 85651; 86140; 93005; 93017; 93931; 96360; 96372; 99285; A9500; G0378; J1650; J2785; J7030; J7507; Q9967

== ENCOUNTER → 2021-08-08 15:01 | Outpatient (BNVA) | payer MEDICARE, OTHER, SELFPAY | PROVIDERS: PCP Electrodiagnostic Medicine; Referring Provider Electrodiagnostic Medicine; Visit Provider Specialist | DX: R20.0 Anesthesia of skin (principal); R20.2 Paresthesia of skin | CPT/HCPCS: 95910 ==

== ENCOUNTER 2022-02-20 20:42 | Observation (INO) | payer MEDICARE, OTHER, SELFPAY ==
[2022-02-20] VITALS (7 sets, daily range): BP systolic 142–176; BP diastolic 77–101; PULSE 79–122; RESP 16–19; TEMP 36.4–36.8; O2SAT 95–98
--- NOTE | 2022-02-20 20:51 | CTR_ITS ---
PROCEDURE INFORMATION: Exam: CT Head Without Contrast Exam date and time: 02/20/2022 9:06 PM Age: 76 years old Clinical indication: Dizziness; Additional info: TIA TECHNIQUE: Imaging protocol: Computed tomography of the head without contrast. Radiation optimization: All CT scans at this facility use at least one of these dose optimization techniques: automated exposure control; mA and/or kV adjustment per patient size (includes targeted exams where dose is matched to clinical indication); or iterative reconstruction. COMPARISON: CT head wo con* [id number] 07/08/2021 8:42 PM RADIATION DOSE METRICS: Total DLP (mGy-cm): 786.88 FINDINGS: Brain: No hemorrhage. No edema. Moderate diffuse cerebral atrophy and sequela of chronic small vessel ischemic disease. Old lacunar infarcts noted in the left basal ganglia. No mass effect. Cerebral ventricles: No ventriculomegaly. Paranasal sinuses: Visualized sinuses are unremarkable. No fluid levels. Mastoid air cells: Visualized mastoid air cells are well aerated. Bones/joints: Unremarkable. No acute fracture. Soft tissues: Unremarkable. CT/CT head wo con* [id number] IMPRESSION: 1. No acute intracranial abnormality. 2. Moderate diffuse cerebral atrophy, sequela of chronic small vessel ischemic disease, and old lacunar infarcts noted in the left basal ganglia.
--- NOTE | 2022-02-20 20:51 | ECG_ITS ---
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 Measurements Intervals [place] Rate: 203 P: OK: QRS: -59 QRSD: 128 T: 0 QT: 168 QTc: 309 Interpretive Statements SUPRAVENTRICULAR TACHYCARDIA LEFT AXIS DEVIATION [QRS AXIS < -30] LEFT BUNDLE BRANCH BLOCK [120+ ms QRS DURATION, 80+ ms Q/S IN V1/V2, 85+ ms R IN I/aVL/V5/V6] Compared to ECG 08/25/2021 18:54:35 Left-axis deviation now present Left bundle-branch block now present Sinus rhythm no longer present T-wave abnormality no longer present Electronically Signed On 02-21-2022 18:57:07 CDT by Bernardo Handley M.D. [id number]
--- NOTE | 2022-02-20 20:52 | W.ED.NEUROSD ---
HPI - Neuro Symptoms/Deficit General: Chief Complaint: Neuro Symptoms/Deficit Stated Complaint: stoke like symptoms Time Seen by Provider: 02/20/22 20:50 History of Present Illness: 76-year-old with history of previous strokes who is on full-strength aspirin presents with transient speech difficulty. He reports that around 6 PM she had expressive aphasia and difficulty finding words. States this is now resolved. Denies any focal weakness numbness or tingling. Denies any headache or loss of consciousness. Review of Systems Narrative: - CONSTITUTIONAL: Denies weight loss, fever and chills. - HEENT: Denies changes in vision and hearing. - RESPIRATORY: Denies SOB and cough. - CV: Denies palpitations and CP. - GI: Denies abdominal pain, nausea, vomiting and diarrhea. - : Denies dysuria and urinary frequency. - MSK: Denies myalgia and joint pain. - SKIN: Denies rash and pruritus. - NEUROLOGICAL: As above - PSYCHIATRIC: Denies suicidal ideation PFS ED PFSH: Medical History CVA (cerebral vascular accident) Hyperlipidemia Hypertension LVH (left ventricular hypertrophy) Palpitations PVC (premature ventricular contraction) Surgical History Kidney transplant recipient Kidney transplant recipient Liver transplant recipient Family History Mother Stroke Hypertension Family/Other Cancer Social History Smoking and tobacco status: never smoked Alcohol intake: never Current occupational status: retired Physical Exam Narrative: EXAM NARRATIVE: - GENERAL: Alert and oriented x 3. No acute distress. Well-nourished. - EYES: EOMI. Anicteric. - HENT: Atraumatic, no C-spine tenderness. Moist mucous membranes. No scleral icterus. No cervical lymphadenopathy. - LUNGS: Clear to auscultation bilaterally. No accessory muscle use. Equal lung sounds bilaterally. No respiratory distress. - CARDIOVASCULAR: Regular rate and rhythm. No murmur. No JVD. - ABDOMEN: Soft, non-tender and non-distended. Negative CVA tenderness bilaterally, no rebound or guarding, negative Dougherty sign. No palpable masses. - EXTREMITIES: No edema. Non-tender. - SKIN: No rashes or lesions. Warm. - NEUROLOGIC: No meningismus or focal neurological deficits. CN II-XII grossly intact. NIH stroke scale 0. - PSYCHIATRIC: Cooperative. Appropriate mood and affect. Course Vital Signs: Vital signs: Vital Signs Temperature 98.2 F 02/20/22 20:53 Pulse Rate 93 02/20/22 22:26 Respiratory Rate 19 H 02/20/22 22:26 Blood Pressure 167/77 02/20/22 22:26 Pulse Oximetry 98 02/20/22 22:26 MDM - Neuro Symptoms/Deficit Medical Decision Making 76-year-old presents with transient speech difficulty. Upon arrival she has nonfocal neurologic exam. Blood sugar is within normal. CT scan of the head does not reveal intracranial hemorrhage or acute abnormality. Lab work however does reveal hyponatremia to 125. Currently she has no seizures altered mental status or any focal neurologic deficit and I do not believe hypertonic saline is required. Normal saline provided. Remainder of lab work and imaging reviewed. Discussed with hospitalist and they agreed patient would benefit from admission. Patient admitted in stable condition. Further evaluation management per hospitalist team. Lab Data : 02/20/22 20:58 02/20/22 20:[address] 02/20/22 20:51 IMPRESSION: 1. No acute intracranial abnormality. 2. Moderate diffuse cerebral atrophy, sequela of chronic small vessel ischemic disease, and old lacunar infarcts noted in the left basal ganglia. Laboratory Results WBC 3.4 10^3/uL (4.0-10.0) L 02/20/22 20:58 RBC 4.57 10^6/uL (4.1-5.3) 02/20/22 20:58 Hgb 14.0 g/dL (11.5-15.3) 02/20/22 20:58 Hct 38.8 % (37.0-47.0) 02/20/22 20:58 MCV 84.9 fl (81-99) 02/20/22 20:58 MCH 30.6 pg (28.0-34.0) 02/20/22 20:58 MCHC 36.1 g/dL (30.0-36.0) H 02/20/22 20:58 RDW 12.5 % (12.1-15.1) 02/20/22 20:58 Plt Count 109 10^3/cmm (130-400) L 02/20/22 20:58 MPV 10.6 fL (7.4-10.4) H 02/20/22 20:58 Neut % (Auto) 66.5 % 02/20/22 20:58 Lymph % (Auto) 24.1 % 02/20/22 20:58 [place] % (Auto) 8.2 % 02/20/22 20:58 Eos % (Auto) 0.6 % 02/20/22 20:58 Baso % (Auto) 0.3 % 02/20/22 20:58 Neut # (Auto) 2.26 10^3/uL (1.8-7.7) 02/20/22 20:58 Lymph # (Auto) 0.8 10^3/uL (0.8-4.8) 02/20/22 20:58 [place] # (Auto) 0.3 10^3/uL (0.2-0.9) 02/20/22 20:58 Eos # (Auto) 0.0 10^3/uL (0.0-0.8) 02/20/22 20:58 Baso # (Auto) 0.0 10^3/uL (0.0-0.1) 02/20/22 20:58 Nucleated RBC % (auto) 0 % 02/20/22 20:58 Nucleated RBCs # 0.0 /100WBC 02/20/22 20:58 PT 12.40 SECONDS (12.1-14.9) 02/20/22 21:26 INR 0.89 (0.8-1.2) 02/20/22 21:26 APTT 46.2 SECONDS (23.9-36.7) H 02/20/22 21:26 Sodium 125 mmol/L (136-145) L 02/20/22 20:58 Potassium 3.8 mmol/L (3.5-5.1) 02/20/22 20:58 Chloride 86 mmol/L (98-107) L 02/20/22 20:58 Carbon Dioxide 22 mmol/L (22-29) 02/20/22 20:58 Anion Gap 20.8 (5-19) H 02/20/22 20:58 BUN 10 mg/dL (8-23) 02/20/22 20:58 Creatinine 0.5 mg/dL (0.5-0.9) 02/20/22 20:58 GFR Calculation Not Reportable 02/20/22 20:58 Glucose 100 mg/dL (65-115) 02/20/22 20:58 POC Glucose 101 mg/dL (70-110) 02/20/22 20:56 Calculated Osmolality 259 mOsm/kg (285-295) L 02/20/22 20:58 Calcium 9.4 mg/dL (8.5-10.5) 02/20/22 20:58 Total Bilirubin 0.4 mg/dL (0.15-1.2) 02/20/22 20:58 AST 48 U/L (0-32) H 02/20/22 20:58 ALT 38 U/L (0-33) H 02/20/22 20:58 Alkaline Phosphatase 68 IU/L (35-105) 02/20/22 20:58 Total Protein 7.5 g/dL (6.6-8.7) 02/20/22 20:58 Albumin 4.7 g/dL (3.5-5.2) 02/20/22 20:58 Globulin 2.8 g/dL (1.3-4.6) 02/20/22 20:58 Urine Color Yellow (Yellow) 02/20/22 21:25 Urine Appearance Clear (CLEAR) 02/20/22 21:25 Urine pH 6 (5-7) 02/20/22 21:25 Ur Specific [place] 1.005 (1.005-1.030) 02/20/22 21:25 Urine Protein Neg (Negative) 02/20/22 21:25 Urine Glucose (UA) Norm (Normal) 02/20/22 21:25 Urine Ketones 1+ (Negative) H 02/20/22 21:25 Urine Blood Neg (Negative) 02/20/22 21:25 Urine Nitrate Negative (Negative) 02/20/22 21:25 Urine Bilirubin Neg (Negative) 02/20/22 21:25 Urine Urobilinogen Norm mg/dL (Negative) 02/20/22 21:25 Ur Leukocyte Esterase Negative (Negative) 02/20/22 21:25 Urine RBC 0-4 /hpf (0-2) H 02/20/22 21:25 Urine WBC 0-4 /hpf (0-5) H 02/20/22 21:25 Ur Squamous Epith Cells 0-4 /hpf (0-5) H 02/20/22 21:25 Amorphous Sediment Not Reportable 02/20/22 21:25 Urine Bacteria Trace /hpf (NONE) 02/20/22 21:25 Urine Opiates Screen Negative ng/mL (Negative) 02/20/22 21:25 Ur Barbiturates Screen Negative ng/mL (Negative) 02/20/22 21:25 Ur Phencyclidine Scrn Negative ng/mL (Negative) 02/20/22 21:25 Ur Amphetamines Screen Negative ng/mL (Negative) 02/20/22 21:25 U Benzodiazepines Scrn Negative ng/mL (Negative) 02/20/22 21:25 Urine Cocaine Screen Negative ng/mL (Negative) 02/20/22 21:25 U Marijuana (THC) Screen Negative ng/mL (Negative) 02/20/22 21:25 EKG Data EKG 1: Other EKG comments: Regular tachycardia, rate of 120, left bundle branch block is present. No sign of acute ischemia or other acute abnormality. Discharge Plan Discharge Condition: Stable Prescriptions: No Action multivitamin Tablet 1 tab PO BID 0RF Eliquis 5 mg tablet 5 mg PO ONCE 0RF atorvastatin 40 mg tablet 40 mg PO DAILY 0RF ascorbic acid (vitamin C) 500 mg capsule PO 0RF cholecalciferol (vitamin D3) 50 mcg (2,000 unit) capsule 50 mcg PO DAILY 0RF (DME) Sole supports See Rx Instructions .Route .MEDSUPPLY Qty: 1 0RF Rx Instructions: As directed metoprolol tartrate 25 mg tablet 25 mg PO BID Qty: 30 0RF Colace 100 mg Capsule 100 mg PO BID 0RF tacrolimus 1 mg capsule See Rx Instructions .ROUTE .COMPLEX 0RF Rx Instructions: 3mg po qam and 2.5mg at bedtime CoQ-10 100 mg Capsule 100 mg PO DAILY 0RF omega-3 fatty acids Capsule 3,000 mg PO DAILY 0RF [place] Probiotics 1 cap PO BID 0RF Macuguard Eye Vitamins 1 cap PO DAILY 0RF Referrals: Mason Mcdonough DO [Primary Care Provider] - Coding 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
[2022-02-20 21:10] LABS: Basophils % 0.3 %; Eosinophils % 0.6 %; Hematocrit 38.8 % (37.0-47.0); Lymphocytes # 0.8 10^3/uL (0.8-4.8); Lymphocytes % 24.1 %; Mean Corpuscular HGB Conc 36.1 g/dL (30.0-36.0); Mean Corpuscular Hemoglobin 30.6 pg (28.0-34.0); Mean Corpuscular Volume 84.9 fl (81-99); Mean Platelet Volume 10.6 fL (7.4-10.4); Monocytes # 0.3 10^3/uL (0.2-0.9); Monocytes % 8.2 %; Neutrophils # 2.26 10^3/uL (1.8-7.7); Neutrophils % 66.5 %; Nucleated Red Blood Cells % 0 %; Platelet Count 109 10^3/cmm (130-400); Red Blood Count 4.57 10^6/uL (4.1-5.3); Red Cell Distribution Width 12.5 % (12.1-15.1); White Blood Count 3.4 10^3/uL (4.0-10.0)
[2022-02-20 21:38] LABS: Glucose Point of Care 101 mg/dL (70-110)
[2022-02-20 21:39] LABS: Alanine Aminotransferase 38 U/L (0-33); Albumin Level 4.7 g/dL (3.5-5.2); Alkaline Phosphatase 68 IU/L (35-105); Anion Gap 20.8 (5-19); Aspartate Amino Transferase 48 U/L (0-32); Blood Urea Nitrogen 10 mg/dL (8-23); Calcium 9.4 mg/dL (8.5-10.5); Carbon Dioxide 22 mmol/L (22-29); Chloride 86 mmol/L (98-107); Globulin 2.8 g/dL (1.3-4.6); Glucose 100 mg/dL (65-115); Osmolality Calculated 259 mOsm/kg (285-295); Potassium 3.8 mmol/L (3.5-5.1); Sodium 125 mmol/L (136-145); Total Bilirubin 0.4 mg/dL (0.15-1.2); Total Protein 7.5 g/dL (6.6-8.7)
[2022-02-20] MEDS: metoprolol tartrate 1 mg/1 mL SDV 5 mL 2.5 MG IVP (21:39)
[2022-02-20 21:45] LABS: INR 0.89 (0.8-1.2)
[2022-02-20 21:46] LABS: Partial Thromboplastin Time 46.2 SECONDS (23.9-36.7)
[2022-02-20] MEDS: sodium chloride 0.9% 1,000 ML 999 ML IV (21:53)
[2022-02-20 22:04] LABS: Amphetamines Screen Urine Negative (Negative); Barbiturates Screen Urine Negative (Negative); Benzodiazepines Screen Urine Negative (Negative); Cocaine Screen Urine Negative (Negative); Opiate Screen Urine Negative (Negative); PCP Screen Urine Negative (Negative); THC Screen Urine Negative (Negative)
[2022-02-20 22:09] LABS: Add Urine Culture? No; Bacteria Urine TRACE /hpf; Bilirubin Urine Neg (Negative); Blood Urine Neg (Negative); Glucose Urine UA Norm (Normal); Ketones Urine 1+ (Negative); Leukocyte Esterase Urine Negative (Negative); Nitrate Urine Negative (Negative); Protein Urine Neg (Negative); RBC Urine 0-4 /hpf (0-2); Specific Gravity, Urine 1.005 (1.005-1.030); Squamous Epithelial Cell Urine 0-4 /hpf (0-5); Urine Appearance Clear (CLEAR); Urine Color Yellow (Yellow); Urobilinogen Urine Norm (Negative); WBC Urine 0-4 /hpf (0-5); pH Urine 6 (5-7)
[2022-02-21 00:14] LABS: SARS Covid-2 Antigen Positive (Negative)
--- NOTE | 2022-02-21 00:39 | XRR_ITS ---
PROCEDURE INFORMATION: Exam: XR Chest Exam date and time: 02/21/2022 1:37 AM Age: 76 years old Clinical indication: Cough; Patient HX: PT is covid positive TECHNIQUE: Imaging protocol: Radiologic exam of the chest. Views: 1 view. COMPARISON: CR Chest 1 [place] [id number] 04/29/2019 7:01 PM FINDINGS: Lungs: Emphysematous lung disease. Hyperinflation pattern. Negative for consolidation. Pleural spaces: Unremarkable. No pleural effusion. No pneumothorax. Heart/Mediastinum: Unremarkable. No cardiomegaly. Bones/joints: Unremarkable. XR/XR chest 1V portable [id number] IMPRESSION: No focal acute pulmonary disease identified.
[2022-02-21 03:59] VITALS: BP 162/88; PULSE 91; RESP 18
[2022-02-21 04:00] VITALS: BP 162/88; PULSE 91; RESP 18; O2SAT 96
[2022-02-21] MEDS: sodium chloride 0.9% 1,000 ML 50 ML IV (04:49)
--- NOTE | 2022-02-21 05:09 | USCV_ITS ---
Echo Wright Age: 76 Gender: F : 1945 Exam Date: 02/21/2022 08:49 Ordering Phys: Cristine Zamora MD Technologist: ANDREA [place] [facility] [place]: TIA BP: 162 / 88 HR: 107 Rhythm: Sinus Technical Quality: Adequate MEASUREMENTS (Male / Female) Normal Values 2D ECHO LV Diastolic Diameter PLAX 3.4 cm 4.2 - 5.9 / 3.9 - 5.3 cm LV Systolic Diameter PLAX 2.2 cm IVS Diastolic Thickness 0.9 cm 0.6 - 1.0 / 0.6 - 0.9 cm IVS Systolic Thickness 1.4 cm LVPW Diastolic Thickness 1.2 cm 0.6 - 1.0 / 0.6 - 0.9 cm LVPW Systolic Thickness 1.9 cm LVOT Diameter 2.0 cm LV Ejection Fraction 2D Teich 66.0 % LV Ejection Fraction MOD 2C 67.3 % LV Ejection Fraction 2C AL 70.1 % LA Diameter 3.5 cm LA Width 4.1 cm LA Height 3.7 cm RA Width 1.8 cm RA Height 4.0 cm Aorta at Sinotubular Diameter 2.3 cm IVC Diameter 1.4 cm M-MODE Aortic Annulus Diameter 2.3 cm LA Ao Ratio MM 1.6 MV E Point Septal Separation 0.2 cm DOPPLER AV Peak Velocity 145.0 cm/s LVOT Peak Velocity 107.0 cm/s AV Area Cont Eq vti 2.4 cm squared AV Area Cont Eq pk 2.3 cm squared MV Area PHT 3.1 cm squared Mitral E to A Ratio 1.0 MV E' Velocity 51.0 cm/s Mitral E to MV E' Ratio 14.2 Mitral E to LV E' Lateral Ratio 14.2 Mitral E to LV E' Septal Ratio 14.2 TR Peak Velocity 241.0 cm/s TR Peak Gradient 23.2 mmHg FINDINGS Left Ventricle Normal left ventricular cavity size. Normal left ventricular systolic function. Left ventricular ejection fraction is estimated at 65 %. No diagnostic regional wall motion abnormalities. Grade II diastolic dysfunction, moderately elevated filling pressures. Right Ventricle Normal right ventricular size and systolic function. RVSP could not be calculated due to incomplete tricuspid regurgitation velocity profile. Right Atrium Normal right atrial size. Left Atrium Mildly increased left atrial size. Mitral Valve Moderate to severe posterior mitral annular calcification. No mitral valve stenosis. Trace mitral valve regurgitation. Aortic Valve Mildly thickened trileaflet aortic valve. No aortic valve stenosis. No aortic valve regurgitation. Tricuspid Valve Structurally normal tricuspid valve. Pulmonic Valve Structurally normal pulmonic valve. No pulmonary valve stenosis. Trace pulmonary valve regurgitation. Pericardium No pericardial effusion. Aorta Normal-sized aortic root. IVC Inferior vena cava not visualized. CONCLUSIONS 1. Normal left ventricular cavity size and systolic function. Left ventricular ejection fraction is estimated at 65 %. No diagnostic regional wall motion abnormalities. Grade II diastolic dysfunction, moderately elevated filling pressures. 2. Moderate to severe posterior mitral annular calcification. No mitral valve stenosis. Trace mitral valve regurgitation. 3. There may not have been any significant change when compared to previous study dated 04/30/2019. Taylor Hughes MD (Electronically Signed) Final Date: 21 February 2022 13:25 S
--- NOTE | 2022-02-21 05:28 | PM.HP ---
Providers/Chief Complaint Admitting Physician: Cristine Zamora MD Primary Care Provider: Mason Mcdonough DO Chief Complaint: stoke like symptoms History of Present Illness Echo Wright is a 76 year old female with PMhx of Hepatitis C s/p liver and kidney transplant, h/o thrombocytopenia and CVA presenting today with c/o transient expressive aphasia at ~4pm on 02/20/22. Patient reports that she was reading a book and suddenly the words did not make sense, she attempted to talk, however the words she was using were out of context and her sentences did not make sense. This eventually resolved. Due to concern for CVA (h/o similar symptoms in 2019 which eventually progressed to right side CVA) she presented to the ER. Ct head was negative for acute CVA. Her symptoms are currentl resolved. ROS was positive + sore throat and URI type symptoms since Friday (today is ) with sick contact by way of her . tested for covid 19 and returned positive. Denies any cough, chets pain or dyspnea currently. Incidentally noted to have new LBBB on 12 lead EKG. Review of past records shows transient left bundle branch block was noted in 06/2021 patient underwent cardiac stress test which was negative for any acute ischemia but patient did have PVCs as well as intermittent QRS widening with left bundle branch block morphology. She started on anticoagulation with eliquis and then had Holter monitoring. Event monitor with three 4-7 beats run of ventricular tachycardia and one short run of atrial tachycardia. In Aug 2021 she was taken off Eliquis as there was no repeat a flutter noted. Review of Systems General: Reports: 10 or more systems reviewed and unremarkable except in HPI and below Const: Reports: body aches; Denies: fever(s) or chills Eyes: Denies: change in vision, blurry vision or photophobia ENMT: Reports: hoarseness; Denies: throat pain, enlarged tonsils, odynophagia or nasal congestion Card: Denies: chest pain, palpitations, irregular heart rhythm, edema, swelling of feet/ankles, lightheadedness, pre-syncope, dyspnea on exertion or orthopnea Resp: Denies: dyspnea, productive cough, non-productive cough, wheezing, stridor, pain on inspiration, change in phlegm color, hemoptysis or chest congestion GI: Denies: abdominal pain, nausea, vomiting, hematemesis, coffee ground emesis, dysphagia, heartburn, diarrhea, constipation, GI cramping, change in stool character, hematochezia or melena : Denies: flank pain, difficulty voiding, dysuria, urinary frequency, urinary urgency, urinary hesitancy or hematuria Musc: Denies: neck pain, back pain, extremity pain, joint swelling, joint warmth or deformity Neuro: Denies: headache(s), numbness in extremities, weakness in extremities, sensory changes, difficulty walking, frequent falls, dizziness, vertigo, behavioral changes, Slurred speech present or seizure-like activity Psych: Denies: anxiety, depression, suicidal ideation or homicidal ideation Endo: Denies: polyuria, polydipsia, tired all the time, cold intolerance or hot flashes Isai/Lymph: Denies: easy bruising or easy bleeding Medications/Allergies Home Medications Medication Instructions Recorded Confirmed Last Taken Type multivitamin 1 tab PO BID 11/02/19 08/08/21 Unknown History Sole supports #1 ea 01/31/20 08/08/[address] Noel Probiotics 1 cap PO BID 07/09/21 08/08/21 Unknown History Macuguard Eye Vitamins 1 cap PO DAILY 07/09/21 08/08/21 Unknown History coenzyme Q10 100 mg capsule 100 mg PO DAILY 07/09/21 08/08/21 Unknown History (CoQ-10) docusate sodium 100 mg capsule 100 mg PO BID 07/09/21 08/08/21 Unknown History (Colace) omega-3 fatty acids 3,000 mg PO DAILY 07/09/21 08/08/21 Unknown History tacrolimus 1 mg capsule, See Rx Instructions .ROUTE .COMPLEX 07/09/21 08/08/21 Unknown History immediate-release apixaban 5 mg tablet (Eliquis) 5 mg PO ONCE tab 09/18/21 Unknown History ascorbic acid (vitamin C) 500 mg mg PO 09/18/21 Unknown History capsule atorvastatin 40 mg tablet 40 mg PO DAILY tab 09/18/21 Unknown History cholecalciferol (vitamin D3) 50 50 mcg PO DAILY 09/18/21 Unknown History mcg (2,000 unit) capsule metoprolol tartrate 25 mg tablet 25 mg PO BID #30 tab 12/18/21 Unknown Rx Allergies Allergy/AdvReac Type Severity Reaction Status Date / Time Penicillins Allergy rash Verified 02/20/22 20:56 PFSH Acute PFSH: Medical History CVA (cerebral vascular accident) Hyperlipidemia Hypertension LVH (left ventricular hypertrophy) Palpitations PVC (premature ventricular contraction) Surgical History Kidney transplant recipient Kidney transplant recipient Liver transplant recipient Family History Mother Stroke Hypertension Family/Other Cancer Social History Smoking and tobacco status: never smoked Alcohol intake: never Current occupational status: retired Vitals/I&O/Wt Last Vital Signs Temp 97.6 F 02/20/22 22:10 Pulse 91 02/21/22 04:00 Resp 18 02/21/22 04:00 BP 162/88 02/21/22 04:00 Pulse Ox 96 02/21/22 04:00 02/20/22 02/20/22 02/21/22 14:59 22:59 06:59 Intake Total 1000 / 1000 Balance 1000 / 1000 Weight last 48 hrs Weight 62.596 kg Physical Exam Narrative: GEN: Awake, alert and oriented, no acute distress CVS: S1S2 N RS: CTA B/L Abd: Soft, nt/nd , bs+ 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 Status: Acute (2) Left bundle branch block: new when compared to EKG from 2020 Currently chest pain free check echo EKG and serial troponin given new finding Ischemic w/up negative in 06/2021 when similar findings on EKg were noted transiently Status: Acute (3) COVID-19: with mild symptoms CXR without signs of pneumonitis given h/o renal transplant and immunocompromised state, patient may be at higher risk of progression to severe disease - will use iv remdisivir for treatment. This was discussed with transplant team at [facility]. Transfer to [facility] deferred as currently stable renal and liver function, no additional therapy indicated per discussion with transplant team. Paxlovid contraindicated with tacrolimus, Monoclonal Ab not available for inpatient use at this time. Per current NIH guidelines, remdisivir preferred over monoclonal Ab Status: Acute (4) Hyponatremia: Na at 125, suspect this is related to poor po intake since Friday- patint has had poor appetite likely related to covid. gentle iv hydration NS @ 50 cc/hr Status: Acute Attestations Medical Necessity Statement*: Anticipate less than 2 midnight stay for above defined care Coding Level of Care Code Acute Pulmonary Physician for [facility] Fwd Diagnoses TIA (transient ischemic attack) G45.9 Left bundle branch block I44.7 COVID-19 U07.1 Hyponatremia E87.1
[2022-02-21] MEDS: remdesivir 200 MG in sodium chloride 0.9% (100 ml) 60 ML 100 MG IV (05:40)
--- NOTE | 2022-02-21 07:26 | ECG_ITS ---
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 Measurements Intervals [place] Rate: 64 P: -7 DE: 148 QRS: 35 QRSD: 85 T: 24 QT: 411 QTc: 425 Interpretive Statements SINUS RHYTHM NONSPECIFIC ST & T-WAVE ABNORMALITY Compared to ECG 02/21/2022 08:34:44 T-wave abnormality now present Atrial fibrillation no longer present Left-axis deviation no longer present Left bundle-branch block no longer present Electronically Signed On 02-21-2022 18:59:54 CDT by Bernardo Handley M.D. [id number]
[2022-02-21 07:55] VITALS: BP 152/79; PULSE 83; RESP 16; TEMP 36.9; O2SAT 95
[2022-02-21 09:35] LABS: Alanine Aminotransferase 30 U/L (0-33); Albumin Level 3.7 g/dL (3.5-5.2); Alkaline Phosphatase 60 IU/L (35-105); Anion Gap 15.9 (5-19); Aspartate Amino Transferase 35 U/L (0-32); Blood Urea Nitrogen 7 mg/dL (8-23); Calcium 8.2 mg/dL (8.5-10.5); Carbon Dioxide 21 mmol/L (22-29); Chloride 99 mmol/L (98-107); Globulin 2.6 g/dL (1.3-4.6); Glucose 180 mg/dL (65-115); Magnesium 1.2 mg/dL (1.7-2.3); Osmolality Calculated 277 mOsm/kg (285-295); Phosphorus 2.5 mg/dL (2.5-4.5); Potassium 3.9 mmol/L (3.5-5.1); Sodium 132 mmol/L (136-145); Total Bilirubin 0.2 mg/dL (0.15-1.2); Total Protein 6.3 g/dL (6.6-8.7)
[2022-02-21] MEDS: pantoprazole DR 40 mg Tablet PO (09:48)
[2022-02-21] MEDS: metoprolol tartrate 25 mg Tablet PO (09:48)
[2022-02-21] MEDS: aspirin 81 mg EC Tablet PO (09:48)
[2022-02-21 09:49] VITALS: PULSE 102; O2SAT 95
[2022-02-21 09:50] LABS: Troponin(5th) Baseline 10 ng/L (0-10)
--- NOTE | 2022-02-21 10:24 | PC.NURSE ---
pt taking antirejection medication from home.
--- NOTE | 2022-02-21 10:26 | PC.CHAP ---
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 [] Patient/Family/Request visit [] Outpatient visit [] Follow-up visit [] Physician referral [] Code/Alert [] Routine visit [] Staff referral [] Actively dying [] Patient sleeping [] Family support [] [] Out of room [] Palliative care [] [] Receiving care in room [] Pre-surgical visit [] Trauma [] Long length of stay [] ICU visit [x] Other: Isolation Relational/Emotional Strength [] Patient feels connected with others/family/visitors/staff [] Distress [] Loneliness/isolation [] Abandonment Spirituality of Patient [] Person of Annie [] Attends Protestant of their Annie [] Believes in Prayer [] Reads Bible or Gnosticism materials [] There are Spiritual issues to be addressed Clinical Registered Nurse Interventions [] Prayer [] Active listening [] Non-anxious presence [] Spiritual/emotional support [] Crisis/trauma care [] Spiritual counseling [] Bereavement support [] Provided bereavement packet [] Provided Bible/devotional materials [] Provided toy/stuffed animal, coloring book to patient or family member [] Provided Communion [] Anointing/[place] [] Salvation [] Completed spiritual assessment [] Other: Impact on Illness or Injury [] Angry [] Fearful [] Anxious [] Often cries [] Exhaustion [] Unable to work [] Unable to attend yarsani [] Unable to walk/stand [] Unable to read [] Unable to drive [] Unable to eat/drink [] Unable to sleep [] Unable to be with family [] Patient intubated [] Other: Summary Isolation Time spent with patient 5 mnis
[2022-02-21 10:33] LABS: Potassium, Radom Urine 26 mmol/L; Urine Random Chloride 50 mmol/L; Urine Random Sodium 89 mmol/L
[2022-02-21] MEDS: apixaban 5 mg Tablet PO (10:50)
[2022-02-21] MEDS: magnesium sulfate premix 4 GM/100 ML PREMIX IV (10:50)
[2022-02-21 11:10] LABS: Troponin 5 2HR 10.23 ng/L (0-10); Troponin 5 2HR Delta 0.23 ABS# (0-10)
--- NOTE | 2022-02-21 11:26 | ECG_ITS ---
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 Measurements Intervals [place] Rate: 110 P: MD: QRS: -57 QRSD: 129 T: 101 QT: 382 QTc: 519 Interpretive Statements ATRIAL FIBRILLATION WITH RAPID VENTRICULAR RESPONSE LEFT AXIS DEVIATION [QRS AXIS < -30] LEFT BUNDLE BRANCH BLOCK [120+ ms QRS DURATION, 80+ ms Q/S IN V1/V2, 85+ ms R IN I/aVL/V5/V6] Compared to ECG 02/20/2022 20:57:21 No significant changes Electronically Signed On 02-21-2022 19:01:04 CDT by Bernardo Handley M.D. [id number]
[2022-02-21 11:42] VITALS: BP 140/76; PULSE 71; RESP 16; TEMP 36.9; O2SAT 95
--- NOTE | 2022-02-21 13:33 | PM.DCS ---
Discharge Providers Date of Admission: 02/20/22 22:31 Date of Discharge: February 21, 2022 Attending Provider at Admission: Cristine Zamora MD Attending Provider at Discharge: Boo Nicolas MD Primary Care Provider: Mason Mcdonough DO Diagnoses at Discharge Discharge Diagnosis (1) TIA (transient ischemic attack): Status: Acute (2) Left bundle branch block: Status: Acute (3) COVID-19: Status: Acute (4) Hyponatremia: Status: Acute Reason for Visit Reason for Visit: stoke like symptoms Hospital Course Hospital Course Echo Wright is a 76 year old female with PMhx of Hepatitis C s/p liver and kidney transplant, h/o thrombocytopenia and CVA presenting today with c/o transient expressive aphasia at ~4pm on 02/20/22. Patient has a history of CVA -Back in 08/28/2018 she had a small subcortical or brainstem stroke leading to mild right-sided weakness of the face, arm, leg -Back in June she had admission for for right-sided stroke right shoulder, arm paresthesias, was found to have atrial flutter in the emergency room,, discharged on anticoagulation, Eliquis -Had a event monitor which did not show any recurrent atrial flutter events -She was admitted for expressive aphasia, productive aphasia, symptoms resolved on admission, out of tPA window, during my examination she was alert oriented x3, no facial droop, no slurring of words, no receptive or productive aphasia, no paresthesias, no focal weakness -She reports to me that she has not been feeling well for the last few days, before her strokelike symptoms, a few days before, she had 1 episode of chest palpitations, like her heart racing, but it quickly resolved on its own -Given above findings, history of CVA, history of paroxysmal atrial flutter, now with recurrent TIA episode, highly suspicious of an embolic phenomenon -I am highly concerned that she has had a recurrent embolic phenomenon, especially as she has had prior CVAs, and prior documented atrial flutter event -I discussed risk and benefits of anticoagulation, she voiced understanding, all questions answered agreed to proceed -Discharged her on Eliquis 5 mg twice daily -Aspirin 81 mg once daily -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 No significant ICA stenosis bilaterally. 3.? Mild stenosis left proximal M1 segment. Distal left MCA vessels are patent. 4.? Mild to moderate segmental stenosis AS400 OPERATOR territories bilaterally unchanged from previous. 5.? No flow-limiting intracranial stenosis. 6.? Persistent right AS400 OPERATOR. 7.? Moderate cavernous carotid calcification. 8.? Normal variant Hypoplastic right A1 segment with azygos TRISTAN MRI of the brain 08/28/2018 Brain: There is a 1.5 cm focus of restricted diffusion in the left singh radiata, consistent with an acute infarct. No additional acute infarcts are demonstrated. There is extensive hyperintensity of periventricular white matter on T2/FLAIR images. This is consistent with chronic microangiopathic white matter disease. No intracranial hemorrhage noted. Ventricles: No ventriculomegaly. Bones/joints: Unremarkable. Soft tissues: Unremarkable. Sinuses: No acute sinusitis. Mastoid air cells: No mastoid effusion. Orbits: Unremarkable. Patient had a left bundle branch block documented on EKG during her hospitalization, no chest pain complaints, under stress test 07/09/2021, she did have intermittent QRS widening, LBBB like morphology Cardiac stress test AprilJuly 09, 2021 1. Myocardial perfusion imaging is normal. ?2. Overall left ventricular systolic function is normal without regional wall ?motion abnormalities. ?3. The left ventricular ejection fraction is hyperdynamic with a value of 85% ?4.? EKG portion of the study will be reported separately. Echocardiogram 02/21/2022 CONCLUSIONS ?1. Normal left ventricular cavity size and systolic function. ?Left ventricular ejection fraction is estimated at 65 %. No ?diagnostic regional wall motion abnormalities. Grade II ?diastolic dysfunction, moderately elevated filling pressures. ?2. Moderate to severe posterior mitral annular calcification.? ?No mitral valve stenosis. Trace mitral valve regurgitation. ?3. There may not have been any significant change when compared ?to previous study dated 04/30/2019. -Baseline troponin 10, 120-minute 10.23, delta 0.23 -Nonetheless she has been discharged on aspirin, Eliquis, she is already on a beta-frandy, has intolerance to statin -I will have her follow-up with cardiology as outpatient In terms of her COVID-19 positivity, he is not requiring any oxygen, did have some hyponatremia which improved with hydration, she given her history of liver transplant, kidney transplant, did get 1 dose of remdesivir, due to concerns for developing severe COVID-19 pneumonia, during hospitalization, she was minimally symptomatic, I discussed with transplant team at [facility], Dr. Chung they are okay with giving monoclonal antibody infusion before discharge. Physical Exam Const: COMMON NORMALS: no acute distress and patient oriented x3 Resp: COMMON NORMALS: normal respiratory effort, No retractions, No use of accessory muscles and clear to auscultation bilaterally AUSCULTATION: clear to auscultation bilaterally Cardio: COMMON NORMALS: regular rate, regular rhythm, S1 normal heart sound present and S2 normal heart sound present RATE: regular rate RHYTHM: regular rhythm HEART SOUNDS: S1 normal heart sound present and S2 normal heart sound present GI: COMMON NORMALS: Normal to inspection, nondistended, normoactive bowel sounds present, Soft to palpation, non-tender and No hepatosplenomegaly present PALPATION: Yes Soft to palpation and Yes No hepatosplenomegaly present Extremity: COMMON NORMALS: no pedal edema Neuro: COMMON NORMALS: patient oriented x3 Psych: COMMON NORMALS: mental status grossly normal Discharge Data Studies Completed and Pending Completed Studies During Hospitalization Category Date Time Status CT head wo con* [id number] Stat Cat Scan 02/20/22 20:51 Completed CXRP [XR chest 1V portable [id number]] Stat Exams 02/21/22 00:39 Completed CV. echo complete* [id number] Routine Ultrasound 02/21/22 05:09 Completed Pending at discharge Category Date Time Status FK 506 (Tacrolimus) Routine Lab 02/21/22 08:48 Received Lipid Panel Stat Lab 02/21/22 10:46 Received Troponin(5th) 6 hour. Timed Lab 02/21/22 14:48 Ordered Radiology Impressions Head CT 02/20/22 20:51 IMPRESSION: 1. No acute intracranial abnormality. 2. Moderate diffuse cerebral atrophy, sequela of chronic small vessel ischemic disease, and old lacunar infarcts noted in the left basal ganglia. Chest X-Ray 02/21/22 00:39 IMPRESSION: No focal acute pulmonary disease identified. Laboratory Results WBC 3.4 10^3/uL (4.0-10.0) L 02/20/22 20:58 RBC 4.57 10^6/uL (4.1-5.3) 02/20/22 20:58 Hgb 14.0 g/dL (11.5-15.3) 02/20/22 20:58 Hct 38.8 % (37.0-47.0) 02/20/22 20:58 MCV 84.9 fl (81-99) 02/20/22 20:58 MCH 30.6 pg (28.0-34.0) 02/20/22 20:58 MCHC 36.1 g/dL (30.0-36.0) H 02/20/22 20:58 RDW 12.5 % (12.1-15.1) 02/20/22 20:58 Plt Count 109 10^3/cmm (130-400) L 02/20/22 20:58 MPV 10.6 fL (7.4-10.4) H 02/20/22 20:58 Neut % (Auto) 66.5 % 02/20/22 20:58 Lymph % (Auto) 24.1 % 02/20/22 20:58 [place] % (Auto) 8.2 % 02/20/22 20:58 Eos % (Auto) 0.6 % 02/20/22 20:58 Baso % (Auto) 0.3 % 02/20/22 20:58 Neut # (Auto) 2.26 10^3/uL (1.8-7.7) 02/20/22 20:58 Lymph # (Auto) 0.8 10^3/uL (0.8-4.8) 02/20/22 20:58 [place] # (Auto) 0.3 10^3/uL (0.2-0.9) 02/20/22 20:58 Eos # (Auto) 0.0 10^3/uL (0.0-0.8) 02/20/22 20:58 Baso # (Auto) 0.0 10^3/uL (0.0-0.1) 02/20/22 20:58 Nucleated RBC % (auto) 0 % 02/20/22 20:58 Nucleated RBCs # 0.0 /100WBC 02/20/22 20:58 PT 12.40 SECONDS (12.1-14.9) 02/20/22 21:26 INR 0.89 (0.8-1.2) 02/20/22 21:26 APTT 46.2 SECONDS (23.9-36.7) H 02/20/22 21:26 Sodium 132 mmol/L (136-145) L 02/21/22 08:48 Potassium 3.9 mmol/L (3.5-5.1) 02/21/22 08:48 Chloride 99 mmol/L (98-107) 02/21/22 08:48 Carbon Dioxide 21 mmol/L (22-29) L 02/21/22 08:48 Anion Gap 15.9 (5-19) 02/21/22 08:48 BUN 7 mg/dL (8-23) L 02/21/22 08:48 Creatinine 0.5 mg/dL (0.5-0.9) 02/21/22 08:48 GFR Calculation Not Reportable 02/21/22 08:48 Glucose 180 mg/dL (65-115) H 02/21/22 08:48 POC Glucose 101 mg/dL (70-110) 02/20/22 20:56 Calculated Osmolality 277 mOsm/kg (285-295) L 02/21/22 08:48 Calcium 8.2 mg/dL (8.5-10.5) L 02/21/22 08:48 Phosphorus 2.5 mg/dL (2.5-4.5) 02/21/22 08:48 Magnesium 1.2 mg/dL (1.7-2.3) L 02/21/22 08:48 Total Bilirubin 0.2 mg/dL (0.15-1.2) 02/21/22 08:48 AST 35 U/L (0-32) H 02/21/22 08:48 ALT 30 U/L (0-33) 02/21/22 08:48 Alkaline Phosphatase 60 IU/L (35-105) 02/21/22 08:48 Troponin T Baseline 10 ng/L (0-10) 02/21/22 08:48 Troponin T 120 Minute 10.23 ng/L (0-10) H 02/21/22 10:46 Delta Troponin T 0.23 ABS# (0-10) 02/21/22 10:46 Total Protein 6.3 g/dL (6.6-8.7) L 02/21/22 08:48 Albumin 3.7 g/dL (3.5-5.2) 02/21/22 08:48 Globulin 2.6 g/dL (1.3-4.6) 02/21/22 08:48 Urine Color Yellow (Yellow) 02/20/22 21:25 Urine Appearance Clear (CLEAR) 02/20/22 21:25 Urine pH 6 (5-7) 02/20/22 21:25 Ur Specific [place] 1.005 (1.005-1.030) 02/20/22 21:25 Urine Protein Neg (Negative) 02/20/22 21:25 Urine Glucose (UA) Norm (Normal) 02/20/22 21:25 Urine Ketones 1+ (Negative) H 02/20/22 21:25 Urine Blood Neg (Negative) 02/20/22 21:25 Urine Nitrate Negative (Negative) 02/20/22 21:25 Urine Bilirubin Neg (Negative) 02/20/22 21:25 Urine Urobilinogen Norm mg/dL (Negative) 02/20/22 21:25 Ur Leukocyte Esterase Negative (Negative) 02/20/22 21:25 Urine RBC 0-4 /hpf (0-2) H 02/20/22 21:25 Urine WBC 0-4 /hpf (0-5) H 02/20/22 21:25 Ur Squamous Epith Cells 0-4 /hpf (0-5) H 02/20/22 21:25 Amorphous Sediment Not Reportable 02/20/22 21:25 Urine Bacteria Trace /hpf (NONE) 02/20/22 21:25 Ur Random Sodium 89 mmol/L 02/21/22 09:50 Ur Random Potassium 26 mmol/L 02/21/22 09:50 Ur Random Chloride 50 mmol/L 02/21/22 09:50 Urine Opiates Screen Negative ng/mL (Negative) 02/20/22 21:25 Ur Barbiturates Screen Negative ng/mL (Negative) 02/20/22 21:25 Ur Phencyclidine Scrn Negative ng/mL (Negative) 02/20/22 21:25 Ur Amphetamines Screen Negative ng/mL (Negative) 02/20/22 21:25 U Benzodiazepines Scrn Negative ng/mL (Negative) 06/29/22 21:25 Urine Cocaine Screen Negative ng/mL (Negative) 02/20/22 21:25 U Marijuana (THC) Screen Negative ng/mL (Negative) 02/20/22 21:25 SARS-CoV-2 Ag (Rapid) Positive (Negative) H 02/20/22 23:35 Vitals Last Vital Signs Temp 98.4 F 02/21/22 11:42 Pulse 71 02/21/22 11:42 Resp 16 02/21/22 11:42 BP 140/76 02/21/22 11:42 Pulse Ox 95 02/21/22 11:42 Discharge Plan Discharge Patient Disposition: Home Condition: Stable Prescriptions: New aspirin 81 mg Tablet,Delayed Release (Dr/Ec) 81 mg PO DAILY 30 Days Qty: 30 0RF Eliquis 5 mg Tablet 5 mg PO Q12H 30 Days Qty: 60 0RF Continued multivitamin Tablet 1 tab PO BID 0RF ascorbic acid (vitamin C) 500 mg capsule 500 mg PO DAILY 0RF cholecalciferol (vitamin D3) 50 mcg (2,000 unit) capsule 50 mcg PO DAILY 0RF (DME) Sole supports See Rx Instructions .Route .MEDSUPPLY Qty: 1 0RF Rx Instructions: As directed metoprolol tartrate 25 mg tablet 25 mg PO BID Qty: 30 0RF docusate sodium [Colace] 100 mg Capsule 100 mg PO BID 0RF tacrolimus 1 mg capsule See Rx Instructions .ROUTE .COMPLEX 0RF Rx Instructions: 3mg po qam and 2.5mg at bedtime coenzyme Q10 [CoQ-10] 100 mg Capsule 100 mg PO DAILY 0RF Dr Noel Probiotics 1 cap PO BID 0RF Macuguard Eye Vitamins 1 cap PO DAILY 0RF Amoret 3 Fish Oil 684-1,200 mg Capsule,Delayed Release(Dr/Ec) 1 cap PO DAILY 0RF Discharge Orders: Discharge Order (Routine); Ordered 02/21/22 Ordered By: Boo Nicolas Referrals: Mylene Weiner MD [Physician] - 2 weeks Mason Mcdonough DO [Primary Care Provider] - 03/05/22 10:45 am Taylor Hughes MD [Physician] - 03/06/22 12:45 pm (left bundle branch week.appt will be with carlos vee. Still has appointment with dr. Hughes on march 20 @10:45) Discharge Diet: Cardiac Discharge Activity: Resume usual activity Patient Instructions: Opioid Safety Activity Restrictions/Additional Instructions: - I have discharged you on Eliquis 5 mg twice daily due to your history of paroxysmal atrial fibrillation and atrial flutter -Eliquis is a very strong blood thinner, monitor for bloody or black stools or lightheadedness if so go to the emergency room -Have your primary care provider recheck your hemoglobin in 1 week -Please follow-up with cardiology in 2 weeks -Please follow-up with neurology in 2 weeks -As you are COVID-positive continue to self isolate, social distance, facemask, hand wash for at least 5 days since symptom onset -If you have any fevers or any worsening shortness of breath or is worsening symptomatology go to the emergency room -Due to COVID-19, you are at increased risk of DVT and pulmonary embolism and hypercoagulable events -If you have any chest pain, any shortness of breath, any calf pain go to the emergency room -Nonetheless I discharged you on Eliquis, which will help with hypercoagulability prophylaxis -Please follow-up with your transplant team at [facility] within the month Discharge Attestations Time Spent in Discharge Care*: less than 30 min Status at Discharge: Cognitive status at discharge: cognitively intact, Behavioral status at discharge: cooperative, Quality Metrics Clinical Quality Measures [ No reported AMI, CVA or VTE this stay] Coding Level of Care Code Acute g FW DC note Exam Detailed Diagnoses TIA (transient ischemic attack) G45.9 Left bundle branch block I44.7 COVID-19 U07.1 Hyponatremia E87.1
[2022-02-21 14:07] LABS: Cholesterol 163 mg/dL (0-200); HDL Cholesterol 51 mg/dL (60-100); LDL Cholesterol Calculated 96 mg/dL (50-129); LDL HDL Ratio 1.88 RATIO (0.00-3.22); Triglycerides 78 mg/dL (0-150)
[2022-02-21 14:40] VITALS: BP 140/76; PULSE 71; RESP 16; TEMP 36.9; O2SAT 95
== END 2022-02-21 14:41 | disposition home or self-care (01) ==
LOC: ER 21:38 → MEDSURG 23:05
PROVIDERS: Emergency Medicine; Admitting Provider Student in an Organized Health Care Education/Training Program; Emergency Provider Emergency Medicine; PCP Electrodiagnostic Medicine; Visit Provider Family Medicine
DX: U07.1 COVID-19 (principal); G45.9 Transient cerebral ischemic attack, unspecified; I44.7 Left bundle-branch block, unspecified; E87.1 Hypo-osmolality and hyponatremia; Z86.19 Personal history of other infectious and parasitic diseases; Z79.01 Long term (current) use of anticoagulants; E78.5 Hyperlipidemia, unspecified; I10 Essential (primary) hypertension
CPT/HCPCS: 36415; 36416; 70450; 71045; 80048; 80053; 80061; 80197; 80306; 81001; 82436; 82962; 83735; 84100; 84133; 84300; 84484; 85025; 85610; 85730; 87426; 93005; 93306; 96361; 96374; 99285; G0378; J3475; J3490; J7030

== ENCOUNTER 2022-02-27 11:48 | Outpatient (CLI) | payer MEDICARE, OTHER, SELFPAY ==
--- NOTE | 2022-02-27 12:13 | CT_ITS ---
WS: [id number] CT ABDOMEN WITH CONTRAST HISTORY: ABDOMINAL PAIN Contiguous single phase 5 mm axial imaging performed to the abdomen. Oral contrast has not been provi ded. Coronal and sagittal reformats are submitted. All CT scans at [facility] use at least on e of these dose optimization techniques: automated exposure control; mA and/or kV adjustment per anil ent size (includes targeted exams where dose is matched to clinical indication); or iterative reconst ruction. CONTRAST: Omnipaque 350; 75 mL IV. DLP: 303.03 mGy.cm COMPARISON: 04/29/2019 Lower thorax: Lung bases are clear. There are small pericardial effusion versus pericardial thickenin g and small hiatal hernia. The pericardial effusion has decreased slightly in size since 2019. Liver: Transplanted liver is normally enhancing. The portal vein is patent. No mass. No bile duct dil atation. Gallbladder: Surgically removed. Pancreas: No change in appearance of the pancreas since 2019. There is a large cluster of calcificati ons which are closely associated with the tail of the pancreas. Spleen: Normal. Adrenals: Normal. Right kidney: Severe atrophy. Left kidney: Severe atrophy. Aorta: Mild atherosclerotic disease. Small amount of plaque at the origins of the celiac axis and SMA . GI tract: As visualized within the abdomen no abnormality is identified. Stomach is not distended wit h contrast. No free fluid or adenopathy is identified. Transplanted kidney in the RIGHT pelvis is normally enhanc ing. Abdominal wall: No hernia. Visualized osseous structures: No change or destructive process. CT/CT abdomen w con* [id number] IMPRESSION: 1. Status post renal and hepatic transplant. No complications are evident on t his CT evaluation. 2. Dense calcification inseparable from the tail of the pancreas is stable sin ce 2019. 3. Small pericardial effusion. 4. Mild atherosclerosis aorta. 5. No ascites or adenopathy.
[2022-02-27 12:16] LABS: Basophils % 0.2 %; Eosinophils # 0.1 10^3/uL (0.0-0.8); Eosinophils % 1.1 %; Hematocrit 37.7 % (37.0-47.0); Hemoglobin 13.3 g/dL (11.5-15.3); Lymphocytes # 1.2 10^3/uL (0.8-4.8); Lymphocytes % 19.4 %; Mean Corpuscular HGB Conc 35.3 g/dL (30.0-36.0); Mean Corpuscular Hemoglobin 30.9 pg (28.0-34.0); Mean Corpuscular Volume 87.5 fl (81-99); Monocytes # 0.5 10^3/uL (0.2-0.9); Monocytes % 7.3 %; Neutrophils % 71.7 %; Nucleated Red Blood Cells % 0 %; Platelet Count 232 10^3/cmm (130-400); Red Blood Count 4.31 10^6/uL (4.1-5.3); Red Cell Distribution Width 12.4 % (12.1-15.1); White Blood Count 6.1 10^3/uL (4.0-10.0)
[2022-02-27 12:32] LABS: Blood Urea Nitrogen 8 mg/dL (8-23)
[2022-02-27] MEDS: iohexol 350 mg/mL 100 mL Btl IV (13:11)
== END 2022-02-27 11:49 | disposition home or self-care (01) ==
LOC: LAB 11:55 → RAD 13:09
PROVIDERS: PCP Electrodiagnostic Medicine; Visit Provider Nurse Practitioner
DX: K86.89 Other specified diseases of pancreas (principal); I31.3 Pericardial effusion (noninflammatory); I70.0 Atherosclerosis of aorta; Z94.0 Kidney transplant status; Z94.4 Liver transplant status
CPT/HCPCS: 36415; 74160; 82565; 84520; 85025

== ENCOUNTER → 2022-03-06 12:43 | Outpatient (BNVA) | payer MEDICARE, OTHER, SELFPAY | PROVIDERS: PCP Electrodiagnostic Medicine; Visit Provider Nurse Practitioner Family | DX: Z86.73 Personal history of transient ischemic attack (TIA), and cerebral infarction without residual deficits (principal) | CPT/HCPCS: 99213 ==

== ENCOUNTER → 2022-03-19 09:56 | Outpatient (BNVA) | payer MEDICARE, OTHER, SELFPAY | PROVIDERS: PCP Electrodiagnostic Medicine; Visit Provider Specialist | DX: I48.91 Unspecified atrial fibrillation (principal); Z86.73 Personal history of transient ischemic attack (TIA), and cerebral infarction without residual deficits; R26.89 Other abnormalities of gait and mobility; G62.9 Polyneuropathy, unspecified | CPT/HCPCS: 82607; 82746; 84295; 99204; 99205 ==

== ENCOUNTER → 2022-08-20 10:24 | Outpatient (BNVA) | payer MEDICARE, OTHER, SELFPAY | PROVIDERS: PCP Electrodiagnostic Medicine; Visit Provider Internal Medicine Cardiovascular Disease | DX: I48.91 Unspecified atrial fibrillation (principal); I10 Essential (primary) hypertension; I49.3 Ventricular premature depolarization; I44.7 Left bundle-branch block, unspecified; E78.2 Mixed hyperlipidemia; Z86.73 Personal history of transient ischemic attack (TIA), and cerebral infarction without residual deficits | CPT/HCPCS: 99214 ==

== ENCOUNTER 2022-10-03 07:51 | Outpatient (CLI) | payer MEDICARE, SELFPAY ==
--- NOTE | 2022-10-03 08:05 | MM_ITS ---
WS: [id number] BILATERAL SCREENING DIGITAL TOMOSYNTHESIS MAMMOGRAM WITH CAD HISTORY: SCREENING COMPARISON: 03/25/2019 and 01/27/2018 Bilateral CC and MLO views with tomosynthesis and synthetic mammography submitted. Computer aided det ection analyzed. Breast composition: There are scattered areas of fibroglandular density. No suspicious masses, microc alcifications or architectural distortion. Bilateral breast arterial calcifications. MM/[place] [id number] IMPRESSION: BI-RADS: 2-Benign FOLLOW UP: 1 Year Follow-up
== END 2022-10-03 07:52 | disposition home or self-care (01) ==
LOC: RAD 07:57
PROVIDERS: PCP Electrodiagnostic Medicine; Visit Provider Nurse Practitioner Family
DX: Z12.31 Encounter for screening mammogram for malignant neoplasm of breast (principal)
CPT/HCPCS: 77063; 77067

== ENCOUNTER 2023-02-15 13:20 | Emergency (ER) | payer MEDICARE, SELFPAY ==
[2023-02-15 13:23] VITALS: BP 192/81; PULSE 87; RESP 16; TEMP 36.8; O2SAT 97; BMI 25.7
--- NOTE | 2023-02-15 13:26 | ECG_ITS ---
[facility] Test Date: 2023-02-15 Pat Name: Echo Wright Department: Room: Gender: Female [employer]st: : 1945 Requested By: Andre Ruiz Order Number: [id number] Stephanie MD: Bernardo Handley M.D. Measurements Intervals Thornton Rate: 68 P: 2 UT: 165 QRS: 25 QRSD: 90 T: 41 QT: 379 QTc: 406 Interpretive Statements SINUS RHYTHM MINIMAL ST DEPRESSION [0.025+ mV ST DEPRESSION] Compared to ECG 02/21/2022 11:53:23 ST (T wave) deviation now present T-wave abnormality no longer present Electronically Signed On 02-15-2023 14:12:16 CDT by Bernardo Handley M.D. [email or web address]
--- NOTE | 2023-02-15 13:29 | ED_ITS ---
HPI - Chest Pain General: Chief Complaint: Chest Pain Stated Complaint: chest pain, sob Time Seen by Provider: 02/15/23 13:29 History of Present Illness: Ms. Wright is a 77-year-old lady with history of hypertension, hyperlipidemia, left ventricular hypertrophy, prior history of stroke presented to the emergency department for chest discomfort. She notes onset of symptoms approximately 10 AM today while getting ready to go to an event. She has left substernal pain without significant radiation noted to be mild and somewhat like indigestion. Mild associated shortness of breath. At times she she becomes lightheaded though is unsure if this is just her chronic lightheadedness or something different. No other specific changes in health, exacerbating, or alleviating factors identified. Patient takes full dose aspirin daily. Onset (ago): hour(s) Onset: during exertion Pain location: substernal Severity: mild Relieving factors: nothing Exacerbating factors: nothing Associated symptoms: Reports other Review of Systems General: Reports: 10 or more systems reviewed and unremarkable except in HPI and below PFSH ED PFSH: Medical History CVA (cerebral vascular accident) Hyperlipidemia Hypertension LVH (left ventricular hypertrophy) Palpitations PVC (premature ventricular contraction) Surgical History Kidney transplant recipient Kidney transplant recipient Liver transplant recipient Family History Mother Stroke Hypertension Family/Other Cancer Social History Smoking and tobacco status: never smoked Alcohol intake: never Substance/Drug Use: never Current occupational status: retired Physical Exam Const: COMMON NORMALS: alert GENERAL APPEARANCE: cooperative and well developed HENMT: COMMON NORMALS: normocephalic and atraumatic HEAD & SCALP: normocephalic and atraumatic Eye: COMMON NORMALS: conjunctivae normal CONJUNCTIVA: Yes conjunctivae normal SCLERA: sclerae normal Neck/C-Spine: COMMON NORMALS: supple GENERAL: Yes trachea midline Resp: COMMON NORMALS: clear to auscultation bilaterally EFFORT & INSPECTION: Yes able to speak in complete sentences AUSCULTATION: clear to auscultation bilaterally Cardio: COMMON NORMALS: regular rate and regular rhythm RATE: regular rate RHYTHM: regular rhythm GI: COMMON NORMALS: Soft to palpation PALPATION: Yes Soft to palpation and No Tenderness to palpation present (GI) Extremity: GENERAL: Yes normal exam except as noted and No edema Neuro: COMMON NORMALS: moves all extremities SENSORIUM/ORIENTATION: Yes alert and No Orientation impaired Psych: COMMON NORMALS: mental status grossly normal and Normal thought process present THOUGHT PROCESS: Normal thought process present Course Vital Signs: Vital signs: Vital Signs Temperature 98.3 F 02/15/23 13:23 Pulse Rate 73 02/15/23 18:06 Respiratory Rate 19 H 02/15/23 18:06 Blood Pressure 176/83 02/15/23 18:06 Pulse Oximetry 97 02/15/23 18:06 Oxygen Delivery Me thod Room Air 02/15/23 13:23 MDM - Chest Pain Medical Decision Making 77-year-old lady presenting for evaluation of chest pain. She is nontoxic on exam. Vitals satisfactory. EKG notable for sinus rhythm with normal axis and intervals, no STEMI. Labs with no significant hematologic or metabolic abnormality to explain symptoms. Negative range 2-hour delta troponin. Chest x-ray with possible cardiomegaly, no lobar consolidation or pneumothorax. The results of ED evaluation were discussed with the patient including possible disposition options. I discussed risk stratification by heart score and estimated risk of major adverse cardiac events. The patient wishes to proceed with outpatient management. I discussed prescriptions and/or symptomatic cares (if applicable) including appropriate and responsible use, followup plan, and return precautions. The patient verbalized understanding and felt safe for discharge. Medical Records I reviewed the patient's medical records. Lab Data I reviewed the patient's lab results. 02/15/23 14:30 02/15/23 14:30 Radiology Impressions Chest X-Ray 02/15/23 13:34 IMPRESSION: Possible cardiomegaly.Heart size not optimally evaluated with a single AP view of the chest. Laboratory Results WBC 4.4 10^3/uL (4.0-10.0) 02/15/23 14:30 RBC 4.17 10^6/uL (4.1-5.3) 02/15/23 14:30 Hgb 12.6 g/dL (11.5-15.3) 02/15/23 14:30 Hct 38.9 % (37.0-47.0) 02/15/23 14:30 MCV 93.3 fl (81-99) 02/15/23 14:30 MCH 30.2 pg (28.0-34.0) 02/15/23 14:30 MCHC 32.4 g/dL (30.0-36.0) 02/15/23 14:30 RDW 13.5 % (12.1-15.1) 02/15/23 14:30 Plt Count 173 10^3/cmm (130-400) 02/15/23 14:30 MPV 9.8 fL (7.4-10.4) 02/15/23 14:30 Neut % (Auto) 56.5 % 02/15/23 14:30 Lymph % (Auto) 32.0 % 02/15/23 14:30 Bacon % (Auto) 6.9 % 02/15/23 14:30 Eos % (Auto) 3.7 % 02/15/23 14:30 Baso % (Auto) 0.7 % 02/15/23 14:30 Neut # (Auto) 2.47 10^3/uL (1.8-7.7) 02/15/23 14:30 Lymph # (Auto) 1.4 10^3/uL (0.8-4.8) 02/15/23 14:30 Bacon # (Auto) 0.3 10^3/uL (0.2-0.9) 02/15/23 14:30 Eos # (Auto) 0.2 10^3/uL (0.0-0.8) 02/15/23 14:30 Baso # (Auto) 0.0 10^3/uL (0.0-0.1) 02/15/23 14:30 Nucleated RBC % (auto) 0 % 02/15/23 14:30 Nucleated RBCs # 0.0 /100WBC 02/15/23 14:30 Sodium 131 mmol/L (136-145) L 02/15/23 14:30 Potassium 3.9 mmol/L (3.5-5.1) 02/15/23 14:30 Chloride 98 mmol/L (98-107) 02/15/23 14:30 Carbon Dioxide 20 mmol/L (22-29) L 02/15/23 14:30 Anion Gap 16.9 (5-19) 02/15/23 14:30 BUN 12 mg/dL (8-23) 02/15/23 14:30 Creatinine 0.6 mg/dL (0.5-0.9) 02/15/23 14:30 GFR Calculation Not Reportable 02/15/23 14:30 Glucose 140 mg/dL (65-115) H 02/15/23 14:30 Calculated Osmolality 274 mOsm/kg (285-295) L 02/15/23 14:30 Calcium 8.9 mg/dL (8.5-10.5) 02/15/23 14:30 Total Bilirubin 0.3 mg/dL (0.15-1.2) 02/15/23 14:30 AST 24 U/L (0-32) 02/15/23 14:30 ALT 18 U/L (0-33) 02/15/23 14:30 Alkaline Phosphatase 75 U/L (35-105) 02/15/23 14:30 Troponin T Baseline 6 ng/L (0-10) 02/15/23 14:30 Troponin T 120 Minute 6.11 ng/L (0-10) 02/15/23 16:30 Delta Troponin T 0.11 ABS# (0-10) 02/15/23 16:30 NT-Pro-B Natriuret Pep 843 pg/mL (0-450) H 02/15/23 14:30 Total Protein 6.7 g/dL (6.6-8.7) 02/15/23 14:30 Albumin 4.2 g/dL (3.5-5.2) 02/15/23 14:30 Globulin 2.5 g/dL (1.3-4.6) 02/15/23 14:30 Lipase 23 U/L (13-60) 02/15/23 14:30 Discharge Plan Discharge Patient Disposition: Home Clinical Impression: Chest pain Condition: Stable Prescriptions: No Action multivitamin Tablet 1 tab PO BID ascorbic acid (vitamin C) 500 mg capsule 500 mg PO DAILY cholecalciferol (vitamin D3) 50 mcg (2,000 unit) capsule 50 mcg PO DAILY (DME) Sole supports See Rx Instructions .Route .MEDSUPPLY Qty: 1 0RF Rx Instructions: As directed metoprolol tartrate 25 mg tablet 25 mg PO BID Qty: 180 3RF tacrolimus 1 mg capsule See Rx Instructions .ROUTE .COMPLEX Rx Instructions: 3mg po qam and 2.5mg at bedtime coenzyme Q10 [CoQ-10] 100 mg Capsule [address] Noel Probiotics 1 cap PO BID [place]ard Eye Vitamins 1 cap PO DAILY omega-3 fatty acids-fish oil 684-1,200 mg Capsule,Delayed Release(Dr/Ec) 1 cap PO DAILY aspirin 325 mg Tablet 325 mg PO DAILY magnesium 200 mg Tablet 200 mg PO DAILY Discharge Orders: Discharge ED (Routine); Ordered 02/15/23 Ordered By: Robinson Correia Referrals: Mason Mcdonough DO [Primary Care Provider] - Discharge Diet: Usual diet Discharge Activity: Resume usual activity Patient Instructions: Chest Pain (ED) Activity Restrictions/Additional Instructions: Thank you for visiting the emergency department. You were seen and evaluated for chest pain. The exact cause of your symptoms is unclear however does require further testing as discussed. I will message case management for outpatient testing. Please follow-up with your primary care provider. Return for anything that you are concerned about and feel needs emergency department evaluation. Coding Level of Care Code ED Solution Sales Senior Executive for Brenda Garrett
--- NOTE | 2023-02-15 13:34 | XRR_ITS ---
PROCEDURE INFORMATION: Exam: XR Chest Exam date and time: 02/15/2023 1:47 PM Age: 77 years old Clinical indication: Pain; Chest pressure; TECHNIQUE: Imaging protocol: Radiologic exam of the chest. Views: 1 view. COMPARISON: CR XR chest 1V portable [id number] 02/21/2022 1:37 AM FINDINGS: Lungs: Unremarkable. No consolidation. Pleural spaces: Unremarkable. No pleural effusion. No pneumothorax. Heart/Mediastinum: Possible cardiomegaly.Heart size not optimally evaluated with a single AP view of the chest. Bones/joints: There are degenerative changes in the thoracic spine and across the acromioclavicular joints. XR/XR chest 1V portable [id number] IMPRESSION: Possible cardiomegaly.Heart size not optimally evaluated with a single AP view of the chest.
[2023-02-15 14:37] LABS: Basophils % 0.7 %; Eosinophils # 0.2 10^3/uL (0.0-0.8); Eosinophils % 3.7 %; Hematocrit 38.9 % (37.0-47.0); Hemoglobin 12.6 g/dL (11.5-15.3); Lymphocytes # 1.4 10^3/uL (0.8-4.8); Mean Corpuscular HGB Conc 32.4 g/dL (30.0-36.0); Mean Corpuscular Hemoglobin 30.2 pg (28.0-34.0); Mean Corpuscular Volume 93.3 fl (81-99); Mean Platelet Volume 9.8 fL (7.4-10.4); Monocytes # 0.3 10^3/uL (0.2-0.9); Monocytes % 6.9 %; Neutrophils # 2.47 10^3/uL (1.8-7.7); Neutrophils % 56.5 %; Nucleated Red Blood Cells % 0 %; Platelet Count 173 10^3/cmm (130-400); Red Blood Count 4.17 10^6/uL (4.1-5.3); Red Cell Distribution Width 13.5 % (12.1-15.1); White Blood Count 4.4 10^3/uL (4.0-10.0)
[2023-02-15 15:16] LABS: Troponin(5th) Baseline 6 ng/L (0-10)
--- NOTE | 2023-02-15 15:18 | ECG_ITS ---
[facility] Test Date: 2023-02-15 Pat Name: Echo Wright Department: Room: Gender: Female Warm In: : 1945 Requested By: Robinson Correia Order Number: [id number] Brown MD: Bernardo Handley M.D. Measurements Intervals [place] Rate: 66 P: 13 PA: 173 QRS: 19 QRSD: 81 T: 47 QT: 399 QTc: 419 Interpretive Statements SINUS RHYTHM SEPTAL MYOCARDIAL INFARCTION , OF INDETERMINATE AGE [40+ ms Q WAVE IN V1/V2] Compared to ECG 02/15/2023 13:31:17 Myocardial infarct finding now present ST (T wave) deviation no longer present Electronically Signed On 02-15-2023 17:19:31 CDT by Bernardo Handley M.D. [email or web address] Technologiesmercy health st. [facility].[email or web address]/[id number]
[2023-02-15 15:38] LABS: Alanine Aminotransferase 18 U/L (0-33); Albumin Level 4.2 g/dL (3.5-5.2); Alkaline Phosphatase 75 U/L (35-105); Anion Gap 16.9 (5-19); Aspartate Amino Transferase 24 U/L (0-32); Blood Urea Nitrogen 12 mg/dL (8-23); Calcium 8.9 mg/dL (8.5-10.5); Carbon Dioxide 20 mmol/L (22-29); Chloride 98 mmol/L (98-107); Globulin 2.5 g/dL (1.3-4.6); Glucose 140 mg/dL (65-115); Lipase 23 U/L (13-60); NT Pro B Type Natriuretic Pept 843 pg/mL (0-450); Osmolality Calculated 274 mOsm/kg (285-295); Potassium 3.9 mmol/L (3.5-5.1); Sodium 131 mmol/L (136-145); Total Bilirubin 0.3 mg/dL (0.15-1.2); Total Protein 6.7 g/dL (6.6-8.7)
[2023-02-15 16:11] VITALS: BP 206/105; PULSE 97; RESP 16; O2SAT 99
[2023-02-15] MEDS: labetalol 5 mg/mL SDV 20mL 10 MG IVP (16:19)
[2023-02-15 17:25] LABS: Troponin 5 2HR 6.11 ng/L (0-10)
[2023-02-15 17:36] LABS: Troponin 5 2HR Delta 0.11 ABS# (0-10)
[2023-02-15 18:06] VITALS: BP 176/83; PULSE 73; RESP 19; O2SAT 97
--- NOTE | 2023-02-16 05:50 | DCPLANNER ---
Addendum entered by Jovita Weinstein 03/12/23 13:34: Patient had a stress test scheduled for 03.07.23 - patient did attend Patient has an echo scheduled for , March 13, 2023. Original Note: social media project manager had message to schedule an outpatient stress test and echo cardiogram for patient. social media project manager faxed signed order to centralized scheduling, who will call patient with appointment information.
== END 2023-02-15 18:07 | disposition home or self-care (01) ==
PROVIDERS: Emergency Provider Emergency Medicine; PCP Electrodiagnostic Medicine
DX: R07.9 Chest pain, unspecified (principal); Z79.82 Long term (current) use of aspirin; Z86.73 Personal history of transient ischemic attack (TIA), and cerebral infarction without residual deficits; E78.5 Hyperlipidemia, unspecified; I10 Essential (primary) hypertension; Z94.0 Kidney transplant status; Z94.4 Liver transplant status
CPT/HCPCS: 36415; 71045; 80053; 83690; 83880; 84484; 85025; 93005; 96374; 99285; J3490

== ENCOUNTER 2023-03-07 09:18 | Outpatient (CLI) | payer MEDICARE, SELFPAY ==
--- NOTE | 2023-03-07 | ECG_ITS ---
[facility] Test Date: 2023-03-07 Pat Name: Echo Wright Department: Room: Gender: Female Extrusion Technician: : 1945 Requested By: Robinson Correia Order Number: [id number] Brown MD: Taylor Hughes M.D. Interpretive Statements NAME OF STUDY: LEXISCAN SESTAMIBI STRESS TEST INDICATION: Chest Pain PROCEDURE: At the baseline, the blood pressure was 173 over 91 mmHg with a heart rate of 74 bpm. The electrocardiogram showed sinus rhythm, normal axis with nonspecific ST depression. The Lexiscan was infused over a period of 20 seconds. A total of 0.4 milligrams of Lexiscan was infused. The stress phase was continued for a total of 5 minutes. Heart rate at the end of the stress phase was 83 bpm with a blood pressure 169/73 mmHg. The EKG at the peak infusion revealed sinus rhythm with no significant ST-T wave changes. Sestamibi was injected 20 seconds after the Lexiscan infusion. Blood pressure at the end of the recovery phase was 166/89 mmHg with a heart rate of 93 beats per minute. CONCLUSION: 1. No significant EKG changes with the LexiScan infusion. 2. No LexiScan induced chest pain or cardiac arrhythmia. 3. Normal blood pressure and heart rate response. 4. Sestamibi/sestamibi perfusion scan pending; see separate report. Electronically Signed On 03-12-2023 17:28:54 CDT by Taylor Hughes M.D. [id number]
--- NOTE | 2023-03-07 09:40 | NMCV_ITS ---
NM garth perf SPECT r/s* [id number] Echo Wright Age: 77 Gender: F : 1945 Exam Date: 03/07/2023 10:17 Ordering Phys: Robinson Correia MD Technologist: PEGGY Guevara Exam Location: [facility] Indications: CHEST PAIN STRESS TEST Please see separate stress test report in [facility] for full findings IMAGE PROTOCOL Rest/Stress 1 Lexiscan Day Radiopharmaceutical Dose (mCi) Administration Site Administered by Rest: Tc-99m 10.9 IV Ezekiel Lim, HALFTONE OPERATOR Sestamibi Stress:Tc-99m 32.9 IV Ezekiel Lim, HALFTONE OPERATOR Sestamibi Rest: 07-Mar-2023 60 Discovery 630 Stress: 07-Mar-2023 30 Discovery 630 0.4mg Lexiscan. Images obtained in supine and prone position. SPECT RESULTS Technical Quality: Excellent Raw Data Analysis: Normal Image Corrections: No attenuation or motion correction applied Summed Stress Score: 0 Summed Rest Score: 1 Summed Difference Score: 0 PERFUSION FINDINGS SPECT images demonstrate homogeneous tracer distribution throughout the myocardium. FUNCTIONAL RESULTS (calculated via Gated SPECT) Stress Image LV EF (%): 82 Stress EDV (mL):56 TID: 1.24 Stress ESV (mL):10 FUNCTIONAL FINDINGS: The left ventricle is normal in size. Transient Ischemia Dilatation of 1.2. The left ventricular ejection fraction is normal with a value of 82%. There is normal left ventricular systolic function. There is normal left ventricular wall thickening. IMPRESSIONS 1. Myocardial perfusion imaging is normal. 2. Overall left ventricular systolic function is normal without regional wall motion abnormalities, LVEF=82%. 3. EKG portion of the study will be reported separately. 4. Scan indicates low risk for cardiac events. Taylor Hughes MD (Electronically Signed) Final Date: 10 March 2023 09:58 S
[2023-03-07 09:51] VITALS: BMI 25.7
[2023-03-07] MEDS: regadenoson 0.4 Mg/5 ml Syringe IVP (11:16)
[2023-03-07 11:48] VITALS: BP 166/89; PULSE 94
== END 2023-03-07 09:19 | disposition home or self-care (01) ==
LOC: CDL 09:20
PROVIDERS: PCP Electrodiagnostic Medicine; Visit Provider Emergency Medicine
DX: R07.9 Chest pain, unspecified (principal)
CPT/HCPCS: 36415; 78452; 93017; 96374; A9500; J2785

== ENCOUNTER 2023-03-13 10:00 | Outpatient (CLI) | payer MEDICARE, SELFPAY ==
--- NOTE | 2023-03-13 10:16 | USCV_ITS ---
Kyle Echo Age: 77 Gender: F : 1945 Exam Date: 03/13/2023 10:41 Ordering Phys: Robinson Correia MD Technologist: Renea Alford Exam Location: [facility] [place] Indication: CP BP: 140 / 76 HR: 62 Rhythm: Sinus Technical Quality: Adequate MEASUREMENTS (Male / Female) Normal Values 2D ECHO LV Diastolic Diameter PLAX 4.3 cm 4.2 - 5.9 / 3.9 - 5.3 cm LV Systolic Diameter PLAX 1.7 cm IVS Diastolic Thickness 0.9 cm 0.6 - 1.0 / 0.6 - 0.9 cm IVS Systolic Thickness 2.1 cm LVPW Diastolic Thickness 0.9 cm 0.6 - 1.0 / 0.6 - 0.9 cm LVPW Systolic Thickness 2.0 cm LVOT Diameter 2.0 cm LV Ejection Fraction 2D Teich 90.0 % LV Ejection Fraction MOD 2C 72.8 % LV Ejection Fraction 2C AL 75.0 % LA Diameter 3.8 cm LA Width 3.8 cm LA Height 5.5 cm RA Width 2.7 cm RA Height 4.9 cm Aorta at Sinotubular Diameter 2.8 cm IVC Diameter 0.9 cm M-MODE Aortic Annulus Diameter 2.8 cm LA Ao Ratio MM 1.4 MV E Point Septal Separation 0.1 cm DOPPLER AV Peak Velocity 136.0 cm/s LVOT Peak Velocity 117.0 cm/s AV Area Cont Eq vti 2.4 cm squared AV Area Cont Eq pk 2.8 cm squared MV Peak Velocity 153.0 cm/s MV Area PHT 3.9 cm squared Mitral E to A Ratio 2.0 MV E' Velocity 73.5 cm/s Mitral E to MV E' Ratio 17.9 Mitral E to LV E' Lateral Ratio 17.4 Mitral E to LV E' Septal Ratio 18.3 TR Peak Velocity 242.5 cm/s TR Peak Gradient 23.5 mmHg Right Atrial Pressure 5.0 mmHg Pulmonary Artery Systolic Pressu 28.5 mmHg PV Peak Velocity 95.3 cm/s RV Acceleration Time 0.2 s RV Ejection Time 0.3 s RV AcT/ET 0.5 FINDINGS Left Ventricle Normal left ventricular size, systolic function and wall thickness, with no regional wall motion abnormalities. Grade II/IV diastolic dysfunction, moderately elevated filling pressures. Left ventricular ejection fraction is estimated at 65 %. Right Ventricle Normal right ventricular size and systolic function. Normal right ventricular systolic pressure. Right Atrium The right atrium is normal in size. Left Atrium Mildly increased left atrial size. Mitral Valve Posterior mitral valve leaflet calcification and thickening. Trace to mild mitral regurgitation. Aortic Valve Structurally normal aortic valve without significant sclerosis or stenosis. There is no aortic regurgitation. Tricuspid Valve Structurally normal tricuspid valve. Mild tricuspid valve regurgitation. Pulmonic Valve Pulmonic valve not well visualized. Mild pulmonary valve regurgitation. Pericardium Normal pericardium without effusion. Aorta Normal ascending aorta dimension. IVC The inferior vena cava appears normal. CONCLUSIONS Normal left ventricular size, systolic function and wall thickness, with no regional wall motion abnormalities. Grade II/IV diastolic dysfunction, moderately elevated filling pressures. Left ventricular ejection fraction is estimated at 65 %. Mildly increased left atrial size. Posterior mitral valve leaflet calcification and thickening. Trace to mild mitral regurgitation. No change from the previous study done [address] Loki Emerson MD (Electronically Signed) Final Date: 13 March 2023 15:51 S
== END 2023-03-13 10:01 | disposition home or self-care (01) ==
PROVIDERS: PCP Electrodiagnostic Medicine; Visit Provider Emergency Medicine
DX: I34.0 Nonrheumatic mitral (valve) insufficiency (principal); R07.9 Chest pain, unspecified
CPT/HCPCS: 93306

== ENCOUNTER → 2023-05-26 11:36 | Outpatient (BNVA) | payer MEDICARE, OTHER, SELFPAY | PROVIDERS: PCP Electrodiagnostic Medicine; Visit Provider Internal Medicine Cardiovascular Disease | DX: I48.91 Unspecified atrial fibrillation (principal); I10 Essential (primary) hypertension; I49.3 Ventricular premature depolarization; I44.7 Left bundle-branch block, unspecified; E78.2 Mixed hyperlipidemia; Z86.73 Personal history of transient ischemic attack (TIA), and cerebral infarction without residual deficits; Z79.82 Long term (current) use of aspirin | CPT/HCPCS: 99214 ==

== ENCOUNTER 2024-01-15 08:54 | Outpatient (CLI) | payer MEDICARE, SELFPAY ==
--- NOTE | 2024-01-15 08:59 | FL_ITS ---
WS: [id number] Barium swallow and esophagram, 01/15/2024 Clinical Data: ESOPHAGEAL DYSPHAGIA Comparison: None. Fluoroscopy time: 1min [id number] # of spot films: 7 Findings: The patient swallowed the thick and thin barium, and it flowed through the hypopharynx without hesita tion. No stricture, mass, polyp or erosion was seen. There is no aspiration or penetration. There are small osteophytes at C4-5 impinging slightly onto the posterior surface of the hypopharynx. The barium entered the esophagus and there was normal motility throughout. No stricture, polyp, mass, erosion or ulcer was noted. There was a small sliding hiatal hernia with moderate gastroesophageal r eflux. FL/FL barium swallow [id number] Impression: Small sliding hiatal hernia with moderate gastroesophageal reflux.
== END 2024-01-15 08:55 | disposition home or self-care (01) ==
LOC: RAD 08:54
PROVIDERS: PCP Electrodiagnostic Medicine; Visit Provider Electrodiagnostic Medicine
DX: R13.19 Other dysphagia (principal); K44.9 Diaphragmatic hernia without obstruction or gangrene; K21.9 Gastro-esophageal reflux disease without esophagitis
CPT/HCPCS: 74220

== ENCOUNTER → 2024-03-01 11:04 | Outpatient (BNVA) | payer MEDICARE, SELFPAY | PROVIDERS: PCP Electrodiagnostic Medicine; Visit Provider Nurse Practitioner Family | DX: I10 Essential (primary) hypertension (principal); I48.0 Paroxysmal atrial fibrillation | CPT/HCPCS: 99214 ==

== ENCOUNTER → 2024-04-06 07:40 | Outpatient (BNVA) | payer MEDICARE, SELFPAY | PROVIDERS: PCP Electrodiagnostic Medicine; Visit Provider Student in an Organized Health Care Education/Training Program | DX: M75.81 Other shoulder lesions, right shoulder (principal); M75.82 Other shoulder lesions, left shoulder | CPT/HCPCS: 99203 ==

== ENCOUNTER 2024-05-25 11:43 | Outpatient (CLI) | payer MEDICARE, SELFPAY ==
--- NOTE | 2024-05-25 12:15 | MR_ITS ---
WS: [id number] MRI HEAD WITHOUT CONTRAST TECHNIQUE: Sagittal T1, T2 axial, T2 axial FLAIR, axial and coronal T1 images, axial susceptibility w eighted imaging, axial diffusion weighted images, and coronal T2 images were obtained. CLINICAL INFORMATION: G31.84 - Mild cognitive impairment of uncertain or unknow... COMPARISON: 2019 FINDINGS: No evidence of restricted diffusion to suggest acute ischemia. Ventricular system and basilar cistern s are patent. No hemosiderin on the susceptibility weighted images. Chronic infarct in the LEFT coron a radiata extending into the internal capsule with encephalomalacia and gliosis. Moderate small vesse l changes with moderate parenchymal volume loss. Small vessel changes in the ana. Wallerian degenera tion involving the LEFT midbrain. Mild atrophy involving the brainstem progressed. Normal posterior fossa. Normal vascular flow voids at the skull base. No extra-axial fluid collection s. No evidence of mass or mass effect. Paranasal sinuses and mastoid air cells are well aerated. Norm al posterior nasopharynx. Moderate symmetric atrophy involving the mesial temporal lobes and hippocam pal formations. Normal optic chiasm and pituitary infundibulum. MR/MR head wo con* [id number] IMPRESSION: 1. No evidence of restricted diffusion to suggest acute ischemia. 2. Moderate small vessel changes with moderate parenchymal volume loss slightl y worse in the temporal and parietal lobes progressed since 2019. 3. Mild cerebellar and brainstem atrophy progressed since 2019. 4. Chronic infarct in the LEFT singh radiata extending into the internal caps ule with encephalomalacia and gliosis has a chronic appearance but new since MRI. This appears stable since the CT 2020 and 2021. Wallerian degeneration LEFT midbrain. 5. No hemosiderin on susceptibility-weighted images. 6. Moderate symmetric atrophy temporal lobes and hippocampal formations progre ssed since 2019
--- NOTE | 2024-05-25 13:00 | MR_ITS ---
WS: [id number] MRA HEAD TECHNIQUE: Axial 3-D TOF images obtained with axial images and axial, sagittal, and coronal 2-D refor matted images. CLINICAL INFORMATION: R51.9 - Headache, unspecified COMPARISON: None. FINDINGS: Moderate intracranial atheromatous disease with areas of mild segmental stenosis. Dominant distal RIGHT vertebral artery. Tiny distal LEFT vertebral artery partially ends in PICA. Per sistent RIGHT BABY STROLLER RENTAL CLERK. Moderate to severe segmental stenosis in the LEFT greater than RIGHT BABY STROLLER RENTAL CLERK ter ritory. Somewhat poor vascularity to the distal LEFT BABY STROLLER RENTAL CLERK territory. Both ICAs are patent at the skull base. Hypoplastic RIGHT A1 segment. Mild cavernous carotid stenosis . Mild stenosis RIGHT M1 segment which remains patent. Mild stenosis LEFT mid M1 segment which remain s patent. Normal vascularity to the TRISTAN territory supplied via the LEFT A1 and A2 segments. MR/MR angio head wo con [id number] IMPRESSION: 1. Moderate intracranial atheromatous disease. 2. Persistent RIGHT BABY STROLLER RENTAL CLERK. 3. Moderate to severe segmental stenosis in the BABY STROLLER RENTAL CLERK territory LEFT greater daniel n RIGHT. Somewhat poor vascularity to the distal LEFT BABY STROLLER RENTAL CLERK territory. 4. Absent RIGHT A1 segment. 5. Mild stenosis in the M1 segments bilaterally which remain patent. 6. Dominant distal RIGHT vertebral artery. LEFT vertebral artery partially end s in PICA. 7. Mild bilateral carotid stenosis in the carotid siphons
== END 2024-05-25 11:44 | disposition home or self-care (01) ==
LOC: RAD 11:43
PROVIDERS: PCP Electrodiagnostic Medicine; Visit Provider Specialist
DX: I67.2 Cerebral atherosclerosis (principal); G46.2 Posterior cerebral artery syndrome; I66.22 Occlusion and stenosis of left posterior cerebral artery; G31.89 Other specified degenerative diseases of nervous system; I63.81 Other cerebral infarction due to occlusion or stenosis of small artery; G93.89 Other specified disorders of brain; G31.84 Mild cognitive impairment of uncertain or unknown etiology; R51.9 Headache, unspecified; R07.9 Chest pain, unspecified; R42 Dizziness and giddiness; R94.31 Abnormal electrocardiogram [ECG] [EKG]; I48.0 Paroxysmal atrial fibrillation; I10 Essential (primary) hypertension; I49.3 Ventricular premature depolarization; G44.89 Other headache syndrome; Z86.73 Personal history of transient ischemic attack (TIA), and cerebral infarction without residual deficits
CPT/HCPCS: 70544; 70551; 93005; 99214

== ENCOUNTER → 2024-06-11 08:11 | Outpatient (BNVA) | payer MEDICARE, SELFPAY | PROVIDERS: PCP Electrodiagnostic Medicine; Visit Provider Specialist | DX: I66.9 Occlusion and stenosis of unspecified cerebral artery (principal); R42 Dizziness and giddiness; R41.3 Other amnesia; G44.89 Other headache syndrome; I48.0 Paroxysmal atrial fibrillation; R26.9 Unspecified abnormalities of gait and mobility | CPT/HCPCS: 99215 ==

== ENCOUNTER → 2024-06-14 13:29 | Outpatient (BNVA) | payer MEDICARE, SELFPAY | PROVIDERS: PCP Electrodiagnostic Medicine; Visit Provider Internal Medicine Cardiovascular Disease | DX: I48.0 Paroxysmal atrial fibrillation (principal); R94.31 Abnormal electrocardiogram [ECG] [EKG] | CPT/HCPCS: 93005 ==

== ENCOUNTER 2024-06-30 12:37 | Outpatient (CLI) | payer MEDICARE, SELFPAY ==
--- NOTE | 2024-06-30 12:45 | USCV_ITS ---
Echo Wright Age: 79 Gender: F : 1945 Exam Date: 06/30/2024 12:49 Ordering Phys: Herb Minor MD ([email or web address]) Technologist: CT Exam Location[place] [facility] [place] Indication: BP: 140 / 82 HR: 85 Rhythm: Sinus Technical Quality: Adequate MEASUREMENTS (Male / Female) Normal Values 2D ECHO LVOT Diameter 2.0 cm LV Ejection Fraction MOD 4C 57.2 % LV Ejection Fraction MOD 2C 69.4 % LV Ejection Fraction 2C AL 70.7 % LA Diameter 4.7 cm RA Systolic Volume 4C AL 31.5 ml RA Systolic Volume 4C MOD 31.2 ml LA Sys Volume AL 94.0 cm cubed LA Sys Volume Index AL 55.2 cm cubed/m squared Aorta at Sinotubular Diameter 2.0 cm IVC Diameter 1.8 cm M-MODE LA Ao Ratio MM 1.9 AV Cusp Separation MM 1.8 cm DOPPLER AV Peak Velocity 139.0 cm/s LVOT Peak Velocity 85.0 cm/s AV Area Cont Eq vti 2.3 cm squared AV Area Cont Eq pk 1.8 cm squared MV Peak Velocity 156.0 cm/s MV Area PHT 4.5 cm squared Mitral E to A Ratio 699.0 TV Peak Velocity 327.7 cm/s TR Peak Velocity 352.0 cm/s TR Peak Gradient 49.6 mmHg TV Peak E Velocity 63.0 cm/s Right Atrial Pressure 3.0 mmHg Pulmonary Artery Systolic Pressu 52.6 mmHg PV Peak Velocity 87.0 cm/s FINDINGS Left Ventricle Normal LV size ejection fraction of 69%. No gross wall motion abnormalities.Grade III/IV diastolic dysfunction (restrictive filling pattern), severely elevated filling pressures. Right Ventricle Normal right ventricular size and systolic function Right Atrium Mildly increased right atrial size. Left Atrium Moderately increased left atrial size. Mitral Valve Moderate mitral annular calcification. Mild mitral valve regurgitation. Aortic Valve Thickened aortic valve. Trace to mild aortic valve regurgitation Tricuspid Valve [id number] tricuspid valve regurgitation. Estimated pulmonary artery peak systolic pressure 53 mmHg Pulmonic Valve Mild pulmonary valve regurgitation. Pericardium Small echo-free space Aorta Normal aortic annulus size IVC Normal inferior vena cava CONCLUSIONS Normal LV size ejection fraction of 69%. No gross wall motion abnormalities. Grade III/IV diastolic dysfunction (restrictive filling pattern), severely elevated filling pressures. Moderately increased left atrial size. Mildly increased right atrial size. Moderate mitral annular calcification. Mild mitral valve regurgitation. Thickened aortic valve. Trace to mild aortic valve regurgitation . [id number] tricuspid valve regurgitation. Estimated pulmonary artery peak systolic pressure 53 mmHg. Mild pulmonary valve regurgitation. Features of small pericardial effusion There is no pericardial effusion. There are no intracardiac masses. Compared to the study from 03/13/2023, there may not be a significant change Dr Herb Minor MD [facility] (Electronically Signed) Final Date: 04 July 2024 17:51 S
== END 2024-06-30 12:38 | disposition home or self-care (01) ==
LOC: RAD 12:38
PROVIDERS: PCP Electrodiagnostic Medicine; Visit Provider Internal Medicine Cardiovascular Disease
DX: I50.30 Unspecified diastolic (congestive) heart failure (principal); I34.81 Nonrheumatic mitral (valve) annulus calcification; I35.2 Nonrheumatic aortic (valve) stenosis with insufficiency; I07.1 Rheumatic tricuspid insufficiency; R06.09 Other forms of dyspnea
CPT/HCPCS: 93306

== ENCOUNTER → 2024-07-21 14:57 | Outpatient (BNVA) | payer MEDICARE, SELFPAY | PROVIDERS: PCP Electrodiagnostic Medicine; Visit Provider Nurse Practitioner Family | DX: I48.92 Unspecified atrial flutter (principal) | CPT/HCPCS: 93005 ==

== ENCOUNTER 2024-08-02 10:53 | Inpatient (IN) | payer MEDICARE, SELFPAY ==
[2024-08-02] VITALS (16 sets, daily range): BP systolic 128–159; BP diastolic 88–125; PULSE 69–121; RESP 14–27; TEMP 36.7–37.2; O2SAT 90–97; BMI 26.2
--- NOTE | 2024-08-02 10:58 | XR_ITS ---
WS: [id number] Exam: XR chest 1V portable [id number] Date/Time of Exam: 08/02/2024 11:17 AM Reason For Exam: sob Comparison 02/15/2023. The heart is enlarged. Increased pulmonary vascularity. Bibasal pleural effusions noted with compress elvin atelectasis of both lower lobes. Bony structures are intact. The mediastinum is normal in contour . XR/XR chest 1V portable [id number] IMPRESSION: 1. Cardiac enlargement with increased pulmonary vascularity and bibasal pleural effusions most likely indicating CHF.
--- NOTE | 2024-08-02 11:04 | ECG_ITS ---
[facility] Date: 2024-08-02 Pat Name: Echo Wright Department: Room: Gender: Female Chief Development Officer: : 1945 Requested By: Poncho Lopez Order Number: [id number] Reading MD: HILLARY LEWIS Measurements Intervals Lynx Rate: 108 P: 0 SC: 0 QRS: -57 QRSD: 133 T: 95 QT: 352 QTc: 472 Interpretive Statements ATRIAL FIBRILLATION WITH RAPID VENTRICULAR RESPONSE LEFT AXIS DEVIATION [QRS AXIS < -30] INTRAVENTRICULAR CONDUCTION DELAY [130+ ms QRS DURATION] ANTEROSEPTAL MYOCARDIAL INFARCTION , OF INDETERMINATE AGE [40+ ms Q WAVE IN V1-V4] INTERPRETATION BASED ON A DEFAULT AGE OF 40 YEARS Compared to ECG 07/21/2024 15:04:33 Left-axis deviation now present Intraventricular conduction delay now present Myocardial infarct finding now present ST (T wave) deviation no longer present Electronically Signed On 08-02-2024 16:07:04 SOUND DESIGNER by HILLARY LEWIS [email or web address]
--- NOTE | 2024-08-02 11:24 | ED_ITS ---
HPI - SOB/Dyspnea 2 General: Chief Complaint: Shortness of Breath/Dyspnea Stated Complaint: SOB Time Seen by Provider: 08/02/24 11:24 History of Present Illness: HPI Narrative: 79-year-old female presents emergency ro om complaining of some shortness of breath and irregular heart rate rapid heart rates with any activity at rest it does a little better but with activity worsens. She will have rates going up into the 130s while sitting in bed talking to us states with any activity it seems to get much worse she is also noted she is increasingly short of breath patient has known history of atrial fibrillation had difficulty with management in the past up until recently she was on flecainide she is also on diltiazem metoprolol they have increased her metoprolol dose to 75 she is taken all of her prescribed doses of medications despite this she still having rapid heart rate she denies any chest pain with this. Associated symptoms: Deny abdominal pain, chest pain or fever(s) Related Data Home Medications Medication Instructions Recorded Confirmed multivitamin 1 tab PO BID 11/02/19 07/21/24 Dr Noel Probiotics 1 cap PO BID 07/09/21 07/21/24 [facility] Eye Vitamins 1 cap PO DAILY 07/09/21 07/21/24 ascorbic acid (vitamin C) 500 mg 500 mg PO BID 05/26/23 07/21/24 capsule cholecalciferol (vitamin D3) 50 5,000 unit PO DAILY 05/26/23 07/21/24 mcg (2,000 unit) capsule magnesium 200 mg tablet 100 mg PO DAILY 05/26/23 07/21/24 omeprazole 40 mg capsule,delayed 40 mg PO DAILY 03/01/24 07/21/24 release omega-3 fatty acids-fish oil 684 1 cap PO DAILY 05/25/24 07/21/24 mg-1,200 mg capsule,delayed release apixaban 5 mg tablet (Eliquis) mg PO 06/11/24 07/21/24 diltiazem HCl 120 mg capsule,24 mg PO 06/11/24 07/21/24 hr,extended release tacrolimus 0.5 mg capsule, mg PO 06/11/24 07/21/24 immediate-release Previous Rx's Medication Instructions Recorded Sole supports #1 ea 05/25/24 memantine 10 mg tablet 10 mg PO BID #60 tabs 06/15/24 memantine 5 mg-10 mg tablets in a See Rx Instructions PO PER PKG DIR 06/15/24 dose pack (Namenda Pam Mango) #49 ea metoprolol tartrate 75 mg tablet 75 mg PO BID #60 tabs 07/21/24 Allergies Allergy/AdvReac Type Severity Reaction Status Date / Time ezetimibe [From Zetia] Allergy ADR-Headach Verified 07/21/24 14:25 e Penicillins Allergy rash Verified 07/21/24 14:25 rivaroxaban [From Xarelto] Allergy ADR-Muscle Verified 07/21/24 14:25 Pain [id number]-AWX-YeL Reductase Allergy ALGY-Joint Verified 07/21/24 14:25 Inhibitor Pain Review of Systems 2 Const: Denies: fever(s) or chills Card: Denies: chest pain Resp: Denies: dyspnea GI: Denies: abdominal pain : Denies: dysuria, urinary frequency or urinary urgency Musc: Denies: neck pain or back pain Skin/Breast: Denies: rash PFSH ED 2 PFSH: Medical History CVA (cerebral vascular accident) LVH (left ventricular hypertrophy) Palpitations Hyperlipidemia PVC (premature ventricular contraction) Hypertension Surgical History Kidney transplant recipient Liver transplant recipient Kidney transplant recipient Family History Mother Stroke Hypertension Family/Other Cancer Social History Smoking and tobacco/nicotine status: never used tobacco/nicotine Alcohol intake: never Substance/Drug Use: never Current occupational status: retired Physical Exam 2 Const: COMMON NORMALS: no acute distress GENERAL APPEARANCE: cooperative and comfortable ORIENTATION/CONSCIOUSNESS: Yes awake, Yes oriented to person, Yes oriented to place and Yes oriented to time HENMT: COMMON NORMALS: normocephalic, atraumatic and hearing grossly normal bilaterally HEAD & SCALP: normocephalic and atraumatic Resp: COMMON NORMALS: normal respiratory effort, No retractions, No use of accessory muscles and clear to auscultation bilaterally AUSCULTATION: clear to auscultation bilaterally Cardio: COMMON NORMALS: No murmurs present (Cardio) RATE: tachycardic R HYTHM: abnormal rhythm irregularly irregular GI: COMMON NORMALS: Soft to palpation and No hepatosplenomegaly present A USCULTATION: Yes normoactive bowel sounds PALPATION: Yes Soft to palpation, No Tenderness to palpation present (GI), No Guarding due to palpation present (GI) and Yes No hepatosplenomegaly present Extremity: COMMON NORMALS: normal to inspection, capillary refill normal, no clubbing, cyanosis or edema, no calf tenderness and no pedal edema Neuro: SENSORIUM/ORIENTATION: Yes oriented to person, Yes oriented to place and Yes oriented to time Skin: COMMON NORMALS: no rashes or lesions noted GENERAL SKIN EXAM: no rashes or lesions noted Course 2 Vital Signs: Vital signs: Vital Signs Temperature 98.6 F 08/02/24 10:56 Pulse Rate 108 H 08/02/24 10:56 Respiratory Rate 17 08/02/24 10:56 Blood Pressure 159/90 08/02/24 10:56 Pulse Oximetry 97 08/02/24 10:56 Oxygen Delivery Me thod Room Air 08/02/24 10:56 MDM - SOB/Dyspnea Lab Data 08/02/24 11:51 08/02/24 11:51 Labs/Radiology: Radiology Impressions Chest X-Ray 08/02/24 10:58 IMPRESSION: 1. Cardiac enlargement with increased pulmonary vascularity and bibasal pleural effusions most likely indicating CHF. Laboratory Results WBC 5.27 10^3/uL (3.29-11.43) 08/02/24 11:51 RBC 4.10 10^6/uL (3.85-5.65) 08/02/24 11:51 Hgb 12.40 g/dL (11.27-16.99) 08/02/24 11:51 Hct 36.5 % (36-47) 08/02/24 11:51 MCV 89.0 fl (85-98) 08/02/24 11:51 MCH 30.2 pg (27-33) 08/02/24 11:51 MCHC 34.0 g/dL (30-55) 08/02/24 11:51 RDW 13.9 % (12.1-15.1) 08/02/24 11:51 Plt Count 221 10^3/cmm (157-399) 08/02/24 11:51 MPV 10.1 fL (7.4-10.4) 08/02/24 11:51 Neut % (Auto) 67.7 % 08/02/24 11:51 Lymph % (Auto) 21.6 % 08/02/24 11:51 Mccone % (Auto) 8.2 % 08/02/24 11:51 Eos % (Auto) 1.7 % 08/02/24 11:51 Baso % (Auto) 0.6 % 08/02/24 11:51 Neut # (Auto) 3.57 10^3/uL (1.8-7.7) 08/02/24 11:51 Lymph # (Auto) 1.1 10^3/uL (0.8-4.8) 08/02/24 11:51 Mccone # (Auto) 0.4 10^3/uL (0.2-0.9) 08/02/24 11:51 Eos # (Auto) 0.1 10^3/uL (0.0-0.8) 08/02/24 11:51 Baso # (Auto) 0.0 10^3/uL (0.0-0.1) 08/02/24 11:51 Nucleated RBC % (auto) 0 % 08/02/24 11:51 Nucleated RBCs # 0.0 /100WBC 08/02/24 11:51 Discharge Plan Discharge Condition: Stable Prescriptions: No Action multivitamin Tablet 1 tab PO BID ascorbic acid (vitamin C) 500 mg capsule 500 mg PO BID cholecalciferol (vitamin D3) 50 mcg (2,000 unit) capsule 5,000 unit PO DAILY (DME) Sole supports See Rx Instructions .Route .MEDSUPPLY Qty: 1 0RF Rx Instructions: As directed omega-3 fatty acids-fish oil 684-1,200 mg capsule,delayed release(DR/EC) 1 cap PO DAILY metoprolol tartrate 75 mg tablet 75 mg PO BID Qty: 60 0RF omeprazole 40 mg capsule,delayed release(DR/EC) 40 mg PO DAILY diltiazem HCl 120 mg capsule,extended release 24 hr PO tacrolimus 0.5 mg capsule PO Eliquis 5 mg tablet PO memantine 10 mg tablet 10 mg PO BID Qty: 60 5RF Rx Instructions: after starter pack memantine [Namenda Titration Mango] 5-10 mg tablets,dose pack See Rx Instructions PO PER PKG DIR Qty: 49 0RF Rx Instructions: PO PER PKG DIR Dr Noel Probiotics 1 cap PO BID [facility] Eye Vitamins 1 cap PO DAILY magnesium 200 mg tablet 100 mg PO DAILY Referrals: Msaon Mcdonough DO [Primary Care Provider] - Coding Level of Care Code ED Medical Officer Psychiatry for Chg Tami
[2024-08-02 12:01] LABS: Basophils % 0.6 %; Eosinophils # 0.1 10^3/uL (0.0-0.8); Eosinophils % 1.7 %; Hematocrit 36.5 % (36-47); Lymphocytes # 1.1 10^3/uL (0.8-4.8); Lymphocytes % 21.6 %; Mean Corpuscular Hemoglobin 30.2 pg (27-33); Mean Platelet Volume 10.1 fL (7.4-10.4); Monocytes # 0.4 10^3/uL (0.2-0.9); Monocytes % 8.2 %; Neutrophils # 3.57 10^3/uL (1.8-7.7); Neutrophils % 67.7 %; Nucleated Red Blood Cells % 0 %; Platelet Count 221 10^3/cmm (157-399); Red Cell Distribution Width 13.9 % (12.1-15.1); White Blood Count 5.27 10^3/uL (3.29-11.43)
[2024-08-02] MEDS: FUROsemide 10 mg/mL SDV 2mL 20 MG IVP (12:20)
[2024-08-02] MEDS: dilTIAZem 100 MG in sodium chloride 0.9% (add-van) 100 ML IV (12:21)
[2024-08-02 12:29] LABS: Alanine Aminotransferase 27 U/L (0-33); Albumin Level 4.2 g/dL (3.5-5.2); Alkaline Phosphatase 101 U/L (35-105); Anion Gap 19.1 (5-19); Aspartate Amino Transferase 23 U/L (0-32); Blood Urea Nitrogen 15 mg/dL (8-23); Calcium 9.5 mg/dL (8.5-10.5); Carbon Dioxide 21 mmol/L (22-29); Chloride 96 mmol/L (98-107); Creatinine Clr Calc Pharmacy 52.4736; Globulin 2.6 g/dL (1.3-4.6); Glucose 123 mg/dL (65-115); NT Pro B Type Natriuretic Pept 3257 pg/mL (0-450); Osmolality Calculated 276 mOsm/kg (285-295); Potassium 4.1 mmol/L (3.5-5.1); Sodium 132 mmol/L (136-145); Total Bilirubin 0.5 mg/dL (0.15-1.2); Total Protein 6.8 g/dL (6.6-8.7)
--- NOTE | 2024-08-02 14:36 | P.HP_ITS ---
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 Patient is stating that her heart rate has been on the higher side despite metoprolol diltiazem. There was plan to cardiovert on Friday as per Dr. Minor but she ended up in the hospital because of worsening of symptoms. In the ER she was diagnosed with mild CHF exacerbation she was given IV 60 mg of Lasix she was put on Cardizem drip at the time of evaluation she is still in A-fib with RVR heart rate 120s, she is on room air, I have switched her Cardizem to amiodarone She is due for her tacrolimus and Eliquis dose in the evening. No active chest pain, no active distress. If she does not convert to sinus rhythm with amiodarone she may need cardioversion during this hospitalization Review of Systems 2 Const: Denies: fever(s) Eyes: Denies: change in vision ENMT: Denies: throat pain Card: Reports: palpitations and swelling of feet/ankles Resp: Reports: dyspnea GI: Denies: abdominal pain : Denies: flank pain Medications/Allergies Home Medications Medication Instructions Recorded Confirmed Last Taken Type multivitamin 1 tab PO BID 11/02/19 08/02/24 08/02/[address] Noel Probiotics 1 cap PO BID 07/09/21 08/02/24 08/02/24 History [facility] Eye Vitamins 1 cap PO DAILY 07/09/21 08/02/24 08/02/24 History ascorbic acid (vitamin C) 500 mg 500 mg PO BID 05/26/23 08/02/24 08/02/24 History capsule cholecalciferol (vitamin D3) 50 5,000 unit PO DAILY 05/26/23 08/02/24 08/02/24 History mcg (2,000 unit) capsule magnesium 200 mg tablet 100 mg PO DAILY 05/26/23 08/02/24 08/01/24 History omeprazole 40 mg capsule,delayed 40 mg PO DAILY 03/01/24 08/02/24 08/02/24 History release Sole supports #1 ea 05/25/24 08/02/24 Unknown Rx omega-3 fatty acids-fish oil 684 1 cap PO DAILY 05/25/24 08/02/24 08/02/24 History mg-1,200 mg capsule,delayed release apixaban 5 mg tablet (Eliquis) 5 mg PO BID 06/11/24 08/02/24 08/02/24 History memantine 10 mg tablet 10 mg PO BID #60 tabs 06/15/24 08/02/24 08/02/24 Rx metoprolol tartrate 75 mg tablet 75 mg PO BID #60 tabs 07/21/24 08/02/24 08/02/24 Rx diltiazem HCl 120 mg capsule,24 120 mg PO QPM 08/02/24 08/02/24 08/01/24 History hr,extended release tacrolimus 1 mg capsule, 2 mg PO BID 08/02/24 08/02/24 08/02/24 History immediate-release Allergies Allergy/AdvReac Type Severity Reaction Status Date / Time ezetimibe [From Zetia] Allergy ADR-Headach Verified 07/21/24 14:25 e Penicillins Allergy rash Verified 07/21/24 14:25 rivaroxaban [From Xarelto] Allergy ADR-Muscle Verified 07/21/24 14:25 Pain Zhrhyee-UHQ-LbB Reductase Allergy ALGY-Joint Verified 07/21/24 14:25 Inhibitor Pain PFSH Acute 2 PFSH: Medical History CVA (cerebral vascular accident) LVH (left ventricular hypertrophy) Palpitations Hyperlipidemia PVC (premature ventricular contraction) Hypertension Surgical History Kidney transplant recipient Liver transplant recipient On tacrolimus, flecainide discontinued because of drug interaction Kidney transplant recipient Family History Mother Stroke Hypertension Family/Other Cancer Social History Smoking and tobacco/nicotine status: never used tobacco/nicotine Alcohol intake: never Substance/Drug Use: never Current occupational status: retired Vitals/I&O/Wt Last Vital Signs Temp 98.6 F 08/02/24 10:56 Pulse 107 H 08/02/24 14:00 Resp 27 H 08/02/24 14:00 BP 138/103 08/02/24 14:00 Pulse Ox 91 08/02/24 14:00 O2 Del Method Room Air 08/02/24 10:56 08/01/24 08/02/24 08/02/24 22:59 06:59 14:59 Intake Total 14.800 / 14.800 Balance 14.800 / 14.800 Weight last 48 hrs Weight 67.132 kg Physical Exam 2 Narrative: Patient is awake and alert Mild sign of fluid overload Currently on room air No active chest pain A-fib with RVR Has orthopnea and PND Lower extremity no significant edema Nonfocal neuroexam S1, S2 variable A-fib RVR Hemodynamically stable Pleasant and cooperative No active chest pain Data 08/02/24 11:51 08/02/24 11:51 A&P Assessment and plan (1) Left bundle branch block: (2) Transient atrial fibrillation: (3) Atrial fibrillation: Qualifiers: Atrial fibrillation type: paroxysmal Qualified Code(s): I48.0 - Paroxysmal atrial fibrillation (4) Hypertension: Qualifiers: Hypertension type: primary hypertension Qualified Code(s): I10 - Essential (primary) hypertension (5) New onset of congestive heart failure: Plan New onset CHF likely related to tachyarrhythmia A-fib RVR Switch medication to amiodarone instead of Cardizem drip Continue Eliquis Continue her metoprolol Monitor for any signs of bradycardia considering left bundle branch block history I will give her p.o. Lasix There are mild signs of CHF exacerbation Will call cardiology to consider cardioversion if she does not convert with amiodarone Blood pressure stable Full code Cardiac diet History of lung and liver transplant: Continue tacrolimus Attestations 2 Medical Necessity Statement*: More than 2 midnights anticipated Diagnoses Left bundle branch block I44.7 Transient atrial fibrillation I48.91 Paroxysmal atrial fibrillation I48.0 Atrial fibrillation type: paroxysmal Primary hypertension I10 Hypertension type: primary hypertension New onset of congestive heart failure I50.9
[2024-08-02 15:43] LABS: Add Urine Microscopic? NO
[2024-08-02 15:46] LABS: Bilirubin Urine Negative (Negative); Blood Urine Negative (Negative); Glucose Urine UA Negative (Normal); Ketones Urine Negative (Negative); Leukocyte Esterase Urine Negative (Negative); Nitrate Urine Negative (Negative); Protein Urine Negative (Negative); Specific Gravity, Urine 1.007 (1.005-1.030); Urine Appearance Clear (CLEAR); Urine Color Yellow (Yellow); Urobilinogen Urine 0.2 mg/dL (Negative)
[2024-08-02 15:57] LABS: Add Urine Culture? No; Charge for UA Resulting for Rev
--- NOTE | 2024-08-02 16:06 | PC.NURSE ---
Patient transferred from ED to CSU at 1610.
--- NOTE | 2024-08-02 17:07 | PC.NURSE ---
Provider ordered to stop the cardizem drip and start amio drip with no bolus.
[2024-08-02] MEDS: metoprolol tartrate 25 mg Tablet 75 MG PO (17:19)
[2024-08-02] MEDS: memantine 5 mg tablet 10 MG PO (17:19)
[2024-08-02] MEDS: apixaban 5 mg Tablet PO (17:19)
--- NOTE | 2024-08-02 19:02 | PC.NURSE ---
Patient said that she takes her tacrolimus at 1000 and 2200. every day.
--- NOTE | 2024-08-02 19:25 | P.CONIM_ITS ---
Providers/Reason For Consult 2 Consulting Physician/Specialty*: Issa Minor MD/cardiology Reason for Consult*: Patient with atrial fibrillation rapid ventricular rate, symptomatic Requesting Physician: Dr. Doherty Attending Physician: Lucinda Doherty MD Primary Care Provider: Mason Mcdonough DO History of Present Illness History of Present Illness Echo Wright is a 79 year old female with a past medical history of atrial flutter/fibrillation, recurrent CVA, history of hepatitis, status post liver and kidney transplant and thrombocytopenia. She has a history of shoulder pain/chest pains. She had a Myocardial perfusion imaging 2018 and 2020. Both times, the test was negative for ischemia. She apparently She was staying in the sinus rhythm for a while. In April of this year, he went back into atrial fibrillation. She has only been asymptomatic with respect to this. She was seen by me in the office on 06/04/2024. She was placed on a low-dose of flecainide. Apparently she could not tolerate this medication. So the dose of the metoprolol was increased to 75 mg p.o. twice daily. According the patient, she continued to have episodes of palpitations. 3 days ago, she did having shortness of breath and leg swelling. The symptoms gradually started getting worse. For that reason, she came to the emergency room today. She has no chest pain. No fever, chills or any significant or cough. She becomes short of breath even with minimal activities. She has no abdominal pain or dysuria. No other specific complaints. Medications/Allergies Home Medications Medication Instructions Recorded Confirmed Last Taken Type multivitamin 1 tab PO BID 11/02/19 08/02/24 08/02/[address] Noel Probiotics 1 cap PO BID 07/09/21 08/02/24 08/02/24 History [facility] Eye Vitamins 1 cap PO DAILY 07/09/21 08/02/24 08/02/24 History ascorbic acid (vitamin C) 500 mg 500 mg PO BID 05/26/23 08/02/24 08/02/24 History capsule cholecalciferol (vitamin D3) 50 5,000 unit PO DAILY 05/26/23 08/02/24 08/02/24 History mcg (2,000 unit) capsule magnesium 200 mg tablet 100 mg PO DAILY 05/26/23 08/02/24 08/01/24 History omeprazole 40 mg capsule,delayed 40 mg PO DAILY 03/01/24 08/02/24 08/02/24 History release Sole supports #1 ea 05/25/24 08/02/24 Unknown Rx omega-3 fatty acids-fish oil 684 1 cap PO DAILY 05/25/24 08/02/24 08/02/24 History mg-1,200 mg capsule,delayed release apixaban 5 mg tablet (Eliquis) 5 mg PO BID 06/11/24 08/02/24 08/02/24 History memantine 10 mg tablet 10 mg PO BID #60 tabs 06/15/24 08/02/24 08/02/24 Rx metoprolol tartrate 75 mg tablet 75 mg PO BID #60 tabs 07/21/24 08/02/24 08/02/24 Rx diltiazem HCl 120 mg capsule,24 120 mg PO QPM 08/02/24 08/02/24 08/01/24 History hr,extended release tacrolimus 1 mg capsule, 2 mg PO BID 08/02/24 08/02/24 08/02/24 History immediate-release Allergies Allergy/AdvReac Type Severity Reaction Status Date / Time ezetimibe [From Zetia] Allergy ADR-Headach Verified 07/21/24 14:25 e Penicillins Allergy rash Verified 07/21/24 14:25 rivaroxaban [From Xarelto] Allergy ADR-Muscle Verified 07/21/24 14:25 Pain Wgvtbqx-ZVU-UgN Reductase Allergy ALGY-Joint Verified 07/21/24 14:25 Inhibitor Pain Current Medications Generic Name Dose Route Start Last Admin Trade Name Andreyq PRN Reason Stop Dose Admin Apixaban 5 mg 08/02/24 18:00 08/02/24 17:19 Apixaban 5 Mg Tablet PO 5 mg BID RADHA Administration Diltiazem HCl 100 mg/ Sodium 100 mls @ 0 mls/hr 08/02/24 11:45 08/02/24 17:03 Chloride IV 0 mg/hr .Q0M RADHA 0 mls/hr Titration Protocol Per Protocol Amiodarone HCl/Dextrose 360 mg in 200 mls @ 0 mls/hr 08/02/24 17:04 08/02/24 17:19 Nexterone IV 1 mg/min .Q0M RADHA 33.33 mls/hr Administration Protocol Per Protocol Memantine 10 mg 08/02/24 18:00 08/02/24 17:19 Memantine 5 Mg Tablet PO 10 mg BID RADHA Administration Metoprolol Tartrate 75 mg 08/02/24 18:00 08/02/24 17:19 Metoprolol Tartrate 25 Mg Tablet PO 75 mg BID RADHA Administration PFSH Acute 2 PFSH: Medical History CVA (cerebral vascular accident) LVH (left ventricular hypertrophy) Palpitations Hyperlipidemia PVC (premature ventricular contraction) Hypertension Surgical History Kidney transplant recipient Liver transplant recipient On tacrolimus, flecainide discontinued because of drug interaction Kidney transplant recipient Family History Mother Stroke Hypertension Family/Other Cancer Social History Smoking and tobacco/nicotine status: never used tobacco/nicotine Alcohol intake: never Substance/Drug Use: never Current occupational status: retired Vitals/I&O/Wt Last Vital Signs Temp 98.1 F 08/02/24 16:13 Pulse 98 08/02/24 17:26 Resp 22 H 08/02/24 17:26 BP 148/88 08/02/24 16:16 Pulse Ox 94 08/02/24 17:26 O2 Del Method Room Air 08/02/24 17:26 08/02/24 08/02/24 08/02/24 06:59 14:59 22:59 Intake Total 17.050 / 17.050 262.95 / 280.000 Balance 17.050 / 17.050 262.95 / 280.000 Weight last 48 hrs Weight 153 lb Weight 148 lb Physical Exam 2 Narrative: GENERAL: The patient is alert and oriented times three. Not in any acute distress. HEENT: No significant pallor, icterus or lymphadenopathy.Oral cavity: There are no mucous membrane lesions. NECK: Trachea appears to be central. No masses noted. No JVD or thyromegaly appreciated. RESPIRATORY: Chest is symmetrical. No intercostals muscle retraction or any accessory muscle activation. There is no chest wall tenderness. Breath sounds are heard bilaterally. No rales or rhonchi heard. No evidence of any consolidation. BREASTS: Deferred. HEART: The heart sounds are normal. No S3 or S4. Short systolic murmur in the left border. No diastolic murmurs. No pericardial rub ABDOMEN: No vessel pulsations or distention. No tenderness. No organomegaly appreciated. Bowel sounds are normally heard. : Deferred. RECTAL: Deferred. LYMPHATIC: No lymphadenopathy noted in the neck. EXTREMITIES: 1+ edema both lower extremities. No cyanosis. MUSCULOSKELETAL: No acute joint deformities or swelling SKIN: There are no significant rashes or ecchymosis NEUROPSYCHIATRIC: The patient is alert and oriented x3. Appears to be in a good mood. No tremors or rigidity noted. Data 08/02/24 11:51 08/02/24 11:51 Other Labs: Echocardiogram in June of this year Normal LV size ejection fraction of 69%. No gross wall motion abnormalities. Grade III/IV diastolic dysfunction (restrictive filling pattern), severely elevated filling pressures. Moderately increased left atrial size. Mildly increased right atrial size. Moderate mitral annular calcification. Mild mitral valve regurgitation. Thickened aortic valve. Trace to mild aortic valve regurgitation . Qhnu-em-yvqvqvpt tricuspid valve regurgitation. Estimated pulmonary artery peak systolic pressure 53 mmHg. Mild pulmonary valve regurgitation. Features of small pericardial effusion There is no pericardial effusion. There are no intracardiac masses. Compared to the study from 03/13/2023, there may not be a significant change EKG 1: My Interpretation: EKG showed atrial fibrillation with rapid ventricular rate of 108 bpm. Nonspecific IVCD. Features suggestive of old anteroseptal DE. Left axis deviation. Compared to the previous EKG from 2021, there may not be a significant change. Other data: Echocardiogram on 06/30/2024 Normal LV size ejection fraction of 69%. No gross wall motion abnormalities. Grade III/IV diastolic dysfunction (restrictive filling pattern), severely elevated filling pressures. Moderately increased left atrial size. Mildly increased right atrial size. Moderate mitral annular calcification. Mild mitral valve regurgitation. Thickened aortic valve. Trace to mild aortic valve regurgitation . Onkf-hg-abvnzufc tricuspid valve regurgitation. Estimated pulmonary artery peak systolic pressure 53 mmHg. Mild pulmonary valve regurgitation. Features of small pericardial effusion There is no pericardial effusion. There are no intracardiac masses. Compared to the study from 03/13/2023, there may not be a significant change A&P Assessment and plan (1) Acute diastolic heart failure: Most likely the tachyarrhythmia might be causing the heart failure. Patient is known to have grade 3 diastolic dysfunction and pulmonary hypertension. She will be carefully treated with IV diuretics. I may also start her on Nitropaste 1 inch every 6 hours (2) Atrial fibrillation with rapid ventricular response: Patient was started on IV amiodarone. This may be continued. She may require a cardioversion. If she continues to remain in the fibrillation, we may consider cardioversion tomorrow. (3) Hypertension: Try to optimize the afterload reducing agents. Qualifiers: Hypertension type: primary hypertension Qualified Code(s): I10 - Essential (primary) hypertension (4) Recurrent cerebrovascular accidents (CVAs): Patient has been taking the Eliquis 2.5 mg p.o. twice daily. Apparently she has a tendency to bleed easily. (5) PVC (premature ventricular contraction): May continue on the current management. (6) Pulmonary hypertension: We may go ahead and do treat with calcium channel blockers and other symptomatic measures. Plan Based on the clinical progress, further recommendations will be made. Patient may require CJ cardioversion because of the suboptimal dose of the Eliquis Thank for the opportunity to help this patient make these recommendations Consult Attestations 2 Medical Necessity Statement: Patient requires continued hospital stay for close monitoring and further management Coding Level of Care Code 77591 Diagnoses Acute diastolic heart failure I50.31 Atrial fibrillation with rapid ventricular response I48.91 Primary hypertension I10 Hypertension type: primary hypertension Recurrent cerebrovascular accidents (CVAs) I63.9 PVC (premature ventricular contraction) I49.3 Pulmonary hypertension I27.20
[2024-08-02] MEDS: FUROsemide 10 mg/mL SDV 2mL 40 MG IVP (21:45)
[2024-08-02] MEDS: tacrolimus 0.5 mg Capsule 2 MG PO (21:45)
[2024-08-02] MEDS: potassium chloride ER 20 mEq Tablet PO (21:45)
[2024-08-03] VITALS (9 sets, daily range): BP systolic 113–156; BP diastolic 58–99; PULSE 59–114; RESP 16–26; TEMP 36.4–37.2; O2SAT 92–98
--- NOTE | 2024-08-03 00:22 | PC.NURSE ---
while this nurse was in room evaluating pt, came in and gave verbal orders for potassium and lasix. order put in by this nurse.
[2024-08-03 03:11] LABS: Basophils % 0.8 %; Eosinophils # 0.1 10^3/uL (0.0-0.8); Eosinophils % 2.5 %; Hematocrit 37.3 % (36-47); Lymphocytes # 1.5 10^3/uL (0.8-4.8); Lymphocytes % 29.2 %; Mean Corpuscular Hemoglobin 30.5 pg (27-33); Mean Corpuscular Volume 89.4 fl (85-98); Mean Platelet Volume 9.8 fL (7.4-10.4); Monocytes # 0.5 10^3/uL (0.2-0.9); Monocytes % 8.8 %; Neutrophils % 58.5 %; Nucleated Red Blood Cells % 0 %; Platelet Count 205 10^3/cmm (157-399); Red Blood Count 4.17 10^6/uL (3.85-5.65); White Blood Count 5.13 10^3/uL (3.29-11.43)
[2024-08-03 03:27] LABS: Anion Gap 13.2 (5-19); Blood Urea Nitrogen 14 mg/dL (8-23); Calcium 9.7 mg/dL (8.5-10.5); Carbon Dioxide 29 mmol/L (22-29); Chloride 92 mmol/L (98-107); Creatinine Clr Calc Pharmacy 47.3691; Glucose 115 mg/dL (65-115); Magnesium 1.2 mg/dL (1.7-2.3); Osmolality Calculated 271 mOsm/kg (285-295); Potassium 4.2 mmol/L (3.5-5.1); Sodium 130 mmol/L (136-145)
[2024-08-03] MEDS: pantoprazole DR 40 mg Tablet PO (08:34)
[2024-08-03] MEDS: metoprolol tartrate 25 mg Tablet 75 MG PO (08:34)
[2024-08-03] MEDS: apixaban 5 mg Tablet PO ×2 (08:34→17:57)
[2024-08-03] MEDS: memantine 5 mg tablet 10 MG PO ×2 (08:34→17:57)
[2024-08-03] MEDS: tacrolimus 0.5 mg Capsule 2 MG PO ×2 (08:35→21:49)
[2024-08-03] MEDS: magnesium sulfate premix 2 GM/50 ML PIGGYBACK IV (08:35)
--- NOTE | 2024-08-03 08:35 | P.PN_ITS ---
Subjective 2 Subjective: History and physical reviewed. Patient admitted August 02, in atrial fibrillation with rapid ventricular rate. Has history of liver and kidney transplant currently on tacrolimus. After admission she was placed on amiodarone, as Cardizem was not effective. Her tacrolimus used post organ transplant was continued. Medications: Reviewed: Yes Vitals/I&O/Wt Last Vital Signs Temp 97.9 F 08/03/24 07:25 Pulse 95 08/03/24 07:56 Resp 16 08/03/24 07:56 BP 126/99 08/03/24 07:25 Pulse Ox 94 08/03/24 07:56 O2 Del Method Room Air 08/03/24 07:56 O2 Flow Rate 2 08/03/24 07:25 08/02/24 08/03/24 08/03/24 22:59 06:59 14:59 Intake Total 602.95 / 620.000 200 / 820.000 Output Total 240 / 240 0 / 240 Balance 362.95 / 380.000 200 / 580.000 Weight last 48 hrs Weight 67.767 kg Weight 69.4 kg Weight 67.132 kg Physical Exam 2 Narrative: General Exam no distress Cardiovascular irregular, irregular, slightly tachycardic at times Lungs clear Abdomen soft Extremities no cyanosis clubbing or edema Data 08/03/24 02:45 08/03/24 02:45 A&P Assessment and plan (1) Atrial fibrillation with rapid ventricular response: Continue Eliquis Currently on amiodarone drip Cardiology consult Continue patient's home metoprolol (2) New onset of congestive heart failure: Lasix 40 mg IV every 12 hours Close follow-up of renal function daily, along with potassium Plan Status post liver and kidney transplant. Continue tacrolimus Multiple other medical problems as listed in past medical history Full code currently Eliquis will suffice for DVT prophylaxis Attestations 2 Medical Necessity Statement*: Needs continued hospitalization for atrial fibrillation with rapid ventricular rate, with consideration for cardioversion. Diagnoses Atrial fibrillation with rapid ventricular response I48.91 New onset of congestive heart failure I50.9 Time Spent (min) 25
--- NOTE | 2024-08-03 09:04 | PM.PN ---
Subjective Subjective: Patient continues to be in atrial fibrillation. Heart rate seems to be fairly under control. But she is still very symptomatic and has the shortness of breath with activities. No chest pain . Medications: Medication Review Details: Current Medications Acetaminophen (Acetaminophen 500 Mg Tablet) 500 mg PO Q4H PRN PRN Reason: fever Albuterol/Ipratropium (Ipratropium-Albuterol 3 Ml Neb) 3 ml INHALATION Q6H PRN PRN Reason: SHORTNESS OF BREATH Apixaban (Apixaban 5 Mg Tablet) 5 mg PO BID [facility] Last Admin: 08/03/24 08:34 Dose: 5 mg Furosemide (Furosemide 10 Mg/Ml Sdv 4ml) 40 mg IVP Q12H [facility] Diltiazem HCl 100 mg/ Sodium (Chloride) 100 mls @ 0 mls/hr IV .Q0M [facility]; Protocol Last Titration: 08/02/24 17:03 Dose: 0 mg/hr, 0 mls/hr Amiodarone HCl/Dextrose (Nexterone) 360 mg in 200 mls @ 0 mls/hr IV .Q0M [facility]; Protocol Last Admin: 08/02/24 23:33 Dose: 0.5 mg/min, 16.67 mls/hr Memantine (Memantine 5 Mg Tablet) 10 mg PO BID [facility] Last Admin: 08/03/24 08:34 Dose: 10 mg Metoprolol Tartrate (Metoprolol Tartrate 25 Mg Tablet) 75 mg PO BID [facility] Last Admin: 08/03/24 08:34 Dose: 75 mg Non-Formulary Medication (Magnesium) 100 mg PO DAILY [facility] Ondansetron HCl (Ondansetron 2 Mg/Ml Sdv 2 Ml) 4 mg IVP Q6H PRN PRN Reason: NAUSEA AND VOMITING Pantoprazole Sodium (Pantoprazole Dr 40 Mg Tablet) 40 mg PO DAILY [facility] Last Admin: 08/03/24 08:34 Dose: 40 mg Potassium Chloride (Potassium Chloride Er 20 Meq Tablet) 20 meq PO Q12H [facility] Tacrolimus (Tacrolimus 0.5 Mg Capsule) 2 mg PO BID [facility] Last Admin: 08/03/24 08:35 Dose: 2 mg Vitals/I&O/Wt Last Vital Signs Temp 97.9 F 08/03/24 07:25 Pulse 95 08/03/24 07:56 Resp 16 08/03/24 07:56 BP 126/99 08/03/24 07:25 Pulse Ox 94 08/03/24 07:56 O2 Del Method Room Air 08/03/24 07:56 O2 Flow Rate 2 08/03/24 07:25 08/02/24 08/03/24 08/03/24 22:59 06:59 14:59 Intake Total 602.95 / 620.000 200 / 820.000 Output Total 240 / 240 0 / 240 Balance 362.95 / 380.000 200 / 580.000 Weight last 48 hrs Weight 149 lb 6.4 oz Weight 153 lb Weight 148 lb Physical Exam Narrative: GENERAL: The patient is alert and oriented times three. Not in any acute distress. HEENT: No significant pallor, icterus or lymphadenopathy.Oral cavity: There are no mucous membrane lesions. NECK: Trachea appears to be central. No masses noted. No JVD or thyromegaly appreciated. RESPIRATORY: Chest is symmetrical. No intercostals muscle retraction or any accessory muscle activation. There is no chest wall tenderness. Breath sounds are heard bilaterally. No rales or rhonchi heard. No evidence of any consolidation. BREASTS: Deferred. HEART: The heart sounds are normal. No S3 or S4. Short systolic murmur in the left border. No diastolic murmurs. No pericardial rub ABDOMEN: No vessel pulsations or distention. No tenderness. No organomegaly appreciated. Bowel sounds are normally heard. : Deferred. RECTAL: Deferred. LYMPHATIC: No lymphadenopathy noted in the neck. EXTREMITIES: 1+ edema both lower extremities. No cyanosis. MUSCULOSKELETAL: No acute joint deformities or swelling SKIN: There are no significant rashes or ecchymosis NEUROPSYCHIATRIC: The patient is alert and oriented x3. Appears to be in a good mood. No tremors or rigidity noted. Data 08/03/24 02:45 08/03/24 02:45 Other Labs: Laboratory Last Values WBC 5.13 10^3/uL (3.29-11.43) 08/03/24 02:45 RBC 4.17 10^6/uL (3.85-5.65) 08/03/24 02:45 Hgb 12.70 g/dL (11.27-16.99) 08/03/24 02:45 Hct 37.3 % (36-47) 08/03/24 02:45 MCV 89.4 fl (85-98) 08/03/24 02:45 MCH 30.5 pg (27-33) 08/03/24 02:45 MCHC 34.0 g/dL (30-55) 08/03/24 02:45 RDW 14.0 % (12.1-15.1) 08/03/24 02:45 Plt Count 205 10^3/cmm (157-399) 08/03/24 02:45 MPV 9.8 fL (7.4-10.4) 08/03/24 02:45 Neut % (Auto) 58.5 % 08/03/24 02:45 Lymph % (Auto) 29.2 % 08/03/24 02:45 [place] % (Auto) 8.8 % 08/03/24 02:45 Eos % (Auto) 2.5 % 08/03/24 02:45 Baso % (Auto) 0.8 % 08/03/24 02:45 Neut # (Auto) 3.00 10^3/uL (1.8-7.7) 08/03/24 02:45 Lymph # (Auto) 1.5 10^3/uL (0.8-4.8) 08/03/24 02:45 [place] # (Auto) 0.5 10^3/uL (0.2-0.9) 08/03/24 02:45 Eos # (Auto) 0.1 10^3/uL (0.0-0.8) 08/03/24 02:45 Baso # (Auto) 0.0 10^3/uL (0.0-0.1) 08/03/24 02:45 Nucleated RBC % (auto) 0 % 08/03/24 02:45 Nucleated RBCs # 0.0 /100WBC 08/03/24 02:45 Sodium 130 mmol/L (136-145) L 08/03/24 02:45 Potassium 4.2 mmol/L (3.5-5.1) 08/03/24 02:45 Chloride 92 mmol/L (98-107) L 08/03/24 02:45 Carbon Dioxide 29 mmol/L (22-29) 08/03/24 02:45 Anion Gap 13.2 (5-19) 08/03/24 02:45 BUN 14 mg/dL (8-23) 08/03/24 02:45 Creatinine 0.9 mg/dL (0.5-0.9) 08/03/24 02:45 GFR Calculation Not Reportable 08/03/24 02:45 Glucose 115 mg/dL (65-115) 08/03/24 02:45 Calculated Osmolality 271 mOsm/kg (285-295) L 08/03/24 02:45 Calcium 9.7 mg/dL (8.5-10.5) 08/03/24 02:45 Magnesium 1.2 mg/dL (1.7-2.3) L 08/03/24 02:45 Total Bilirubin 0.5 mg/dL (0.15-1.2) 08/02/24 11:51 AST 23 U/L (0-32) 08/02/24 11:51 ALT 27 U/L (0-33) 08/02/24 11:51 Alkaline Phosphatase 101 U/L (35-105) 08/02/24 11:51 NT-Pro-B Natriuret Pep 3257 pg/mL (0-450) H 08/02/24 11:51 Total Protein 6.8 g/dL (6.6-8.7) 08/02/24 11:51 Albumin 4.2 g/dL (3.5-5.2) 08/02/24 11:51 Globulin 2.6 g/dL (1.3-4.6) 08/02/24 11:51 Urine Color Yellow (Yellow) 08/02/24 12:33 Urine Appearance Clear (CLEAR) 08/02/24 12:33 Urine pH 6.0 (5-7) 08/02/24 12:33 Ur Specific [place] 1.007 (1.005-1.030) 08/02/24 12:33 Urine Protein Negative (Negative) 08/02/24 12:33 Urine Glucose (UA) Negative (Normal) 08/02/24 12:33 Urine Ketones Negative (Negative) 08/02/24 12:33 Urine Blood Negative (Negative) 08/02/24 12:33 Urine Nitrate Negative (Negative) 08/02/24 12:33 Urine Bilirubin Negative (Negative) 08/02/24 12:33 Urine Urobilinogen 0.2 mg/dL (Negative) 08/02/24 12:33 Ur Leukocyte Esterase Negative (Negative) 08/02/24 12:33 Amorphous Sediment Not Reportable 08/02/24 12:33 A&P Assessment and plan (1) Acute diastolic heart failure: Most likely the tachyarrhythmia might be causing the heart failure. Patient is known to have grade 3 diastolic dysfunction and pulmonary hypertension. She will be carefully treated with IV diuretics. I may also start her on Nitropaste 1 inch every 6 hours Patient seems to be responding to the diuretics. (2) Atrial fibrillation with rapid ventricular response: May continue on the IV amiodarone till the current dose is completed. Then we may switch to p.o. amiodarone. Possible cardioversion around noon today. (3) Hypertension: Try to optimize the afterload reducing agents. Qualifiers: Hypertension type: primary hypertension Qualified Code(s): I10 - Essential (primary) hypertension (4) Recurrent cerebrovascular accidents (CVAs): Patient has been taking the Eliquis 2.5 mg p.o. twice daily. Apparently she has a tendency to bleed easily. We may do a CJ prior to the cardioversion to rule out any intracardiac thrombus. (5) PVC (premature ventricular contraction): Stable with no significant arrhythmias. May continue on the current management. (6) Pulmonary hypertension: We may go ahead and do treat with calcium channel blockers and other symptomatic measures. Continue on the current management. Plan CJ cardioversion this afternoon. The risk of aspiration, bleeding, soft tissue injury, perforation of the stomach/esophagus and other concomitant complications were explained to the patient in detail. The patient understood this well and consented to proceed Attestations Medical Necessity Statement*: Patient requires continued hospital stay for close monitoring and further management Coding Level of Care Code 96016 Diagnoses Acute diastolic heart failure I50.31 Atrial fibrillation with rapid ventricular response I48.91 Primary hypertension I10 Hypertension type: primary hypertension Recurrent cerebrovascular accidents (CVAs) I63.9 PVC (premature ventricular contraction) I49.3 Pulmonary hypertension I27.20
[2024-08-03 09:10] LABS: Thyroid Stimulating Hormone 6.84 uIU/mL (0.27-4.20)
--- NOTE | 2024-08-03 10:28 | PC.CHAP ---
Pastoral Care Encounter/Spiritual Assessment Type of Contact [] Declined highballer visit [] Patient/Family/Request visit [] Outpatient visit [] Follow-up visit [] Physician referral [] Code/Alert [x] Routine visit [] Staff referral [] Actively dying [] Patient sleeping [] Family support [] [] Out of room [] Palliative care [] [] Receiving care in room [] Pre-surgical visit [] Trauma [] Long length of stay [] ICU visit [] Other: Relational/Emotional Strength [x] Patient feels connected with others/family/visitors/staff [] Distress [] Loneliness/isolation [] Abandonment Spirituality of Patient [x] Person of Annie [] Attends Orthodoxy of their Annie [x] Believes in Prayer [] Reads Bible or Amish materials [] There are Spiritual issues to be addressed Certified Orthotist Practice Manager Interventions [x] Prayer [x] Active listening [] Non-anxious presence [x] Spiritual/emotional support [] Crisis/trauma care [] Spiritual counseling [] Bereavement support [] Provided bereavement packet [] Provided Bible/devotional materials [] Provided toy/stuffed animal, coloring book to patient or family member [] Provided Communion [] Anointing/[place] [] Salvation [x] Completed spiritual assessment [] Other: Impact on Illness or Injury [] Angry [] Fearful [] Anxious [] Often cries [] Exhaustion [] Unable to work [] Unable to attend congregational [] Unable to walk/stand [] Unable to read [] Unable to drive [] Unable to eat/drink [] Unable to sleep [] Unable to be with family [] Patient intubated [] Other: Summary Time spent with patient 5 min
[2024-08-03] MEDS: potassium chloride ER 20 mEq Tablet PO ×2 (10:32→22:26)
[2024-08-03] MEDS: FUROsemide 10 mg/mL SDV 4mL 40 MG IVP ×2 (10:33→22:26)
--- NOTE | 2024-08-03 11:17 | W.PM.OPSUD ---
Surgery/Procedure H&P Update DATE OF PROCEDURE: August 03, 2024 DATE H&P PERFORMED: 08/02/24 H&P UPDATE INFORMATION: I have reviewed H&P completed within last 30 days, I have examined patient prior to procedure and No changes to prior documentation PREOP DIAGNOSIS: Symptomatic atrial fibrillation PRIMARY INDICATION FOR PROCEDURE: Symptomatic atrial fibrillation PLANNED PROCEDURE: CJ/ cardioversion
--- NOTE | 2024-08-03 11:33 | P.ANESASSM_ITS ---
Pre-Anesthetic Assessment Height/Weight: Height 5 ft 3 in Weight 149 lb 6.4 oz Temp Pulse Resp BP Pulse Ox O2 Del Method O2 Flow Rate 97.8 F 93 20 H 130/86 92 Room Air 2 08/03/24 11:04 08/03/24 11:04 08/03/24 11:04 08/03/24 11:04 08/03/24 11:04 08/03/24 11:04 08/03/24 07:25 Preop Diagnosis: Symptomatic atrial fibrillation Anesthetic Plan ASA status: 3 Anesthesia: MAC Other: Patient continues to have atrial fibrillation, scheduled for cardioversion today Patient is on amiodarone currently No prior issues with anesthesia NPO since yesterday Recurrent CVAs, on chronic Eliquis Pulmonary hypertension TTE showing EF 69% with PA pressures of 53 Plan for MAC anesthetic Medications/Allergies Home Medications Medication Instructions Recorded Confirmed Last Taken Type multivitamin 1 tab PO BID 11/02/19 08/02/24 08/02/[address] Noel Probiotics 1 cap PO BID 07/09/21 08/02/24 08/02/24 History Simon Eye Vitamins 1 cap PO DAILY 07/09/21 08/02/24 08/02/24 History ascorbic acid (vitamin C) 500 mg 500 mg PO BID 05/26/23 08/02/24 08/02/24 History capsule cholecalciferol (vitamin D3) 50 5,000 unit PO DAILY 05/26/23 08/02/24 08/02/24 History mcg (2,000 unit) capsule magnesium 200 mg tablet 100 mg PO DAILY 05/26/23 08/02/24 08/01/24 History omeprazole 40 mg capsule,delayed 40 mg PO DAILY 03/01/24 08/02/24 08/02/24 History release Sole supports #1 ea 05/25/24 08/02/24 Unknown Rx omega-3 fatty acids-fish oil 684 1 cap PO DAILY 05/25/24 08/02/24 08/02/24 History mg-1,200 mg capsule,delayed release apixaban 5 mg tablet (Eliquis) 5 mg PO BID 06/11/24 08/02/24 08/02/24 History memantine 10 mg tablet 10 mg PO BID #60 tabs 06/15/24 08/02/24 08/02/24 Rx metoprolol tartrate 75 mg tablet 75 mg PO BID #60 tabs 07/21/24 08/02/24 08/02/24 Rx diltiazem HCl 120 mg capsule,24 120 mg PO QPM 08/02/24 08/02/24 08/01/24 History hr,extended release tacrolimus 1 mg capsule, 2 mg PO BID 08/02/24 08/02/24 08/02/24 History immediate-release Allergies Allergy/AdvReac Type Severity Reaction Status Date / Time ezetimibe [From Zetia] Allergy ADR-Headach Verified 07/21/24 14:25 e Penicillins Allergy rash Verified 07/21/24 14:25 rivaroxaban [From Xarelto] Allergy ADR-Muscle Verified 07/21/24 14:25 Pain Xixjrsw-[id number]-DzT Reductase Allergy ALGY-Joint Verified 07/21/24 14:25 Inhibitor Pain Current Medications Generic Name Dose Route Start Last Admin Trade Name Freq PRN Reason Stop Dose Admin Apixaban 5 mg 08/02/24 18:00 08/03/24 08:34 Apixaban 5 Mg Tablet PO 5 mg BID RADHA Administration Furosemide 40 mg 08/03/24 10:00 08/03/24 10:33 Furosemide 10 Mg/Ml Sdv 4ml IVP 40 mg Q12H RADHA Administration Diltiazem HCl 100 mg/ Sodium 100 mls @ 0 mls/hr 08/02/24 11:45 08/02/24 17:03 Chloride IV 0 mg/hr .Q0M RADHA 0 mls/hr Titration Protocol Per Protocol Amiodarone HCl/Dextrose 360 mg in 200 mls @ 0 mls/hr 08/02/24 17:04 08/03/24 11:16 Nexterone IV 0.5 mg/min .Q0M RAHDA 16.67 mls/hr Administration Protocol Per Protocol Memantine 10 mg 08/02/24 18:00 08/03/24 08:34 Memantine 5 Mg Tablet PO 10 mg BID RADHA Administration Metoprolol Tartrate 75 mg 08/02/24 18:00 08/03/24 08:34 Metoprolol Tartrate 25 Mg Tablet PO 75 mg BID [facility] Administration Pantoprazole Sodium 40 mg 08/03/24 09:00 08/03/24 08:[address] 40 Mg Tablet PO 40 mg DAILY [facility] Administration Potassium Chloride 20 meq 08/03/24 10:00 08/03/24 10:32 Potassium Chloride Er 20 Meq Tablet PO 20 meq Q12H [facility] Administration Tacrolimus 2 mg 08/02/24 18:30 08/03/24 08:35 Tacrolimus 0.5 Mg Capsule PO 2 mg BID [facility] Administration Additional Medication Information Current Medications Acetaminophen (Acetaminophen 500 Mg Tablet) 500 mg PO Q4H PRN PRN Reason: fever Albuterol/Ipratropium (Ipratropium-Albuterol 3 Ml Neb) 3 ml INHALATION Q6H PRN PRN Reason: SHORTNESS OF BREATH Apixaban (Apixaban 5 Mg Tablet) 5 mg PO BID [facility] Last Admin: 08/03/24 08:34 Dose: 5 mg Furosemide (Furosemide 10 Mg/Ml Sdv 4ml) 40 mg IVP Q12H [facility] Diltiazem HCl 100 mg/ Sodium (Chloride) 100 mls @ 0 mls/hr IV .Q0M [facility]; Protocol Last Titration: 08/02/24 17:03 Dose: 0 mg/hr, 0 mls/hr Amiodarone HCl/Dextrose (Nexterone) 360 mg in 200 mls @ 0 mls/hr IV .Q0M [facility]; Protocol Last Admin: 08/02/24 23:33 Dose: 0.5 mg/min, 16.67 mls/hr Memantine (Memantine 5 Mg Tablet) 10 mg PO BID [facility] Last Admin: 08/03/24 08:34 Dose: 10 mg Metoprolol Tartrate (Metoprolol Tartrate 25 Mg Tablet) 75 mg PO BID [facility] Last Admin: 08/03/24 08:34 Dose: 75 mg Non-Formulary Medication (Magnesium) 100 mg PO DAILY [facility] Ondansetron HCl (Ondansetron 2 Mg/Ml Sdv 2 Ml) 4 mg IVP Q6H PRN PRN Reason: NAUSEA AND VOMITING Pantoprazole Sodium (Pantoprazole Dr 40 Mg Tablet) 40 mg PO DAILY [facility] Last Admin: 08/03/24 08:34 Dose: 40 mg Potassium Chloride (Potassium Chloride Er 20 Meq Tablet) 20 meq PO Q12H [facility] Tacrolimus (Tacrolimus 0.5 Mg Capsule) 2 mg PO BID [facility] Last Admin: 08/03/24 08:35 Dose: 2 mg PFSH Anesthesia Medical History CVA (cerebral vascular accident) LVH (left ventricular hypertrophy) Palpitations Hyperlipidemia PVC (premature ventricular contraction) Hypertension Surgical History Kidney transplant recipient Liver transplant recipient On tacrolimus, flecainide discontinued because of drug interaction Kidney transplant recipient Family History Mother Stroke Hypertension Family/Other Cancer Social History Smoking and tobacco/nicotine status: never used tobacco/nicotine Alcohol intake: never Substance/Drug Use: never Current occupational status: retired Data Anesthesia 08/03/24 02:45 08/03/24 02:45 Short CBC 08/02/24 08/03/24 Range/Units 11:51 02:45 WBC 5.27 5.13 (3.29-11.43) 10^3/uL Hgb 12.40 12.70 (11.27-16.99) g/dL Hct 36.5 37.3 (36-47) % MCV 89.0 89.4 (85-98) fl Plt Count 221 205 (157-399) 10^3/cmm Neut % (Auto) 67.7 58.5 % Neut # (Auto) 3.57 3.00 (1.8-7.7) 10^3/uL BMP 08/02/24 08/03/24 11:51 02:45 Sodium 132 L 130 L Potassium 4.1 4.2 Chloride 96 L 92 L Carbon Dioxide 21 L 29 BUN 15 14 Creatinine 0.8 0.9 Glucose 123 H 115 Calcium 9.5 9.7 Cardiac Enzymes 08/02/24 Range/Units 11:51 NT-Pro-B Natriuret Pep 3257 H (0-450) pg/mL Liver Function 08/02/24 Range/Units 11:51 Total Bilirubin 0.5 (0.15-1.2) mg/dL AST 23 (0-32) U/L ALT 27 (0-33) U/L Alkaline Phosphatase 101 (35-105) U/L Albumin 4.2 (3.5-5.2) g/dL Urine 08/02/24 Range/Units 12:33 Urine Color Yellow (Yellow) Urine Appearance Clear (CLEAR) Urine pH 6.0 (5-7) Ur Specific [place] 1.007 (1.005-1.030) Urine Protein Negative (Negative) Urine Glucose (UA) Negative (Normal) Urine Ketones Negative (Negative) Urine Nitrate Negative (Negative) Urine Bilirubin Negative (Negative) Ur Leukocyte Esterase Negative (Negative) Cardiac Studies: 2 Echocardiogram 06/30/24 Sestamibi Stress Test (Cardiology) 03/07 Cardiac Event Monitor 07/26/21
--- NOTE | 2024-08-03 12:30 | USCV_ITS ---
Echo Wright Age: 79 Gender: F : 1945 Exam Date: 08/03/2024 12:27 Ordering Phys: Keisha Guzman NP Technologist: [place] [facility] [place]: [place] BP: / HR: Rhythm: Sinus Technical Quality: Adequate MEASUREMENTS (Male / Female) Normal Values Medications IV propofol attempts was administered by the anesthesia service. Please refer to the anesthesia report for details Complications None Proc. Components The procedure was done at the bedside including #102 The CJ probe was passed into the posterior pharynx , mid- esophagus and distal esophagus,.CJ was performed at multiple levels. The patient tolerated the procedure well and there were no complications. FINDINGS Left Ventricle Patient with normal size and ejection fraction. Right Ventricle Appears to be normal size and ejection fraction Right Atrium Mildly dilated right atrium Left Atrium Moderately dilated left atrium. LA Appendage No intracavitary masses or thrombi.. Diminished contractility IA Septum Appears to be intact.No interatrial shunt by color-flow Doppler examination or by saline contrast injection Mitral Valve Mild-moderate mitral valve regurgitation. Aortic Valve Minimally thickened aortic valve. Tricuspid Valve Trace to mild tricuspid valve regurgitation. Pulmonic Valve No gross abnormalities noted Pericardium No pericardial effusion. Aorta No unstable plaques or aneurysm in the ascending or arch of the aorta.Some intimal thickening was noted in the ascending aorta CONCLUSIONS Normal LV size ejection fraction. Moderately dilated left atrium Mildly dilated right atrium. Left atrial appendage was found to be of normal size and contractility with diminished contractility Mild-moderate mitral valve regurgitation. Trace to mild tricuspid regurgitation Minimally thickened aortic valve. Some intimal thickening was noted in the ascending aorta. No unstable plaques or aneurysm in the ascending or arch of the aorta.Some intimal thickening was noted in the ascending aorta Intact intra-atrial septum No intracardiac shunts by color-flow Doppler examination or by saline contrast injection No intracardiac masses or thrombi. Dr Herb Minor MD [facility] (Electronically Signed) Final Date: 05 August 2024 09:04 S
--- NOTE | 2024-08-03 12:40 | P.OP_ITS ---
Operative Report Date of procedure: August 04, 2024 Surgeon: Herb Minor MD Procedure: Electrical cardioversion report Preprocedure diagnoses: Atrial fibrillation/hypertension. IV sedation was administered by the anesthesia service Brief history: 78-year-old white female with symptomatic atrial fibrillation/diastolic heart failure. Arrhythmia not responding to the amiodarone/multiple AV victoria drugs Location of the procedure: CSU bed #102 Electrode application: Anteroposterior Electrical energy applied: 120 J of biphasic current Number of shocks: Single Final rhythm: Sinus rhythm with PACs Final blood pressure: 128/72 Complications: None Recommendation(s): Will keep on the IV amiodarone infusion, check the current dose is finished. Then we may start on amiodarone p.o. 400 twice daily. May re start the metoprolol depending on the heart rate response
[2024-08-03] MEDS: sodium chloride 0.9% 500 ML IV (13:01)
--- NOTE | 2024-08-03 13:15 | ECG_ITS ---
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 Measurements Intervals [place] Rate: 57 P: 90 NE: 170 QRS: -59 QRSD: 130 T: 85 QT: 496 QTc: 486 Interpretive Statements SINUS BRADYCARDIA WITH OCCASIONAL SUPRAVENTRICULAR PREMATURE COMPLEXES LEFT AXIS DEVIATION [QRS AXIS < -30] LEFT BUNDLE BRANCH BLOCK [120+ ms QRS DURATION, 80+ ms Q/S IN V1/V2, 85+ ms R IN I/aVL/V5/V6] Compared to ECG 08/02/2024 11:04:04 Left bundle-branch block now present Atrial fibrillation no longer present Intraventricular conduction delay no longer present Myocardial infarct finding no longer present Electronically Signed On 08-04-2024 01:05:06 RN BSN by Herb Minor M.D. [email or web address]
[2024-08-03] MEDS: metoprolol tartrate 25 mg Tablet PO (17:57)
[2024-08-03] MEDS: amiodarone 200 mg Tablet 400 MG PO (17:57)
--- NOTE | 2024-08-03 18:23 | PC.NURSE ---
ANURAG Valdes called and ordered to run the amio drip until the bag is gone. She also ordered PO amio.
[2024-08-04] VITALS (8 sets, daily range): BP systolic 114–164; BP diastolic 67–87; PULSE 66–87; RESP 16–24; TEMP 36.3–37; O2SAT 94–98
[2024-08-04 03:56] LABS: Basophils % 0.4 %; Eosinophils # 0.1 10^3/uL (0.0-0.8); Eosinophils % 1.8 %; Hematocrit 35.4 % (36-47); Lymphocytes # 1.1 10^3/uL (0.8-4.8); Lymphocytes % 24.6 %; Mean Corpuscular HGB Conc 33.3 g/dL (30-55); Mean Corpuscular Volume 90.1 fl (85-98); Mean Platelet Volume 9.9 fL (7.4-10.4); Monocytes # 0.4 10^3/uL (0.2-0.9); Monocytes % 8.7 %; Neutrophils # 2.87 10^3/uL (1.8-7.7); Neutrophils % 64.1 %; Nucleated Red Blood Cells % 0 %; Platelet Count 176 10^3/cmm (157-399); Red Blood Count 3.93 10^6/uL (3.85-5.65); White Blood Count 4.48 10^3/uL (3.29-11.43)
[2024-08-04 04:13] LABS: Alanine Aminotransferase 20 U/L (0-33); Albumin Level 3.7 g/dL (3.5-5.2); Alkaline Phosphatase 87 U/L (35-105); Aspartate Amino Transferase 19 U/L (0-32); Blood Urea Nitrogen 14 mg/dL (8-23); Calcium 8.7 mg/dL (8.5-10.5); Carbon Dioxide 23 mmol/L (22-29); Chloride 97 mmol/L (98-107); Creatinine Clr Calc Pharmacy 38.3289; Globulin 2.3 g/dL (1.3-4.6); Glucose 107 mg/dL (65-115); Magnesium 1.6 mg/dL (1.7-2.3); Osmolality Calculated 279 mOsm/kg (285-295); Sodium 134 mmol/L (136-145); Total Bilirubin 0.3 mg/dL (0.15-1.2)
[2024-08-04 04:26] LABS: Anion Gap 18.1 (5-19); Potassium 4.1 mmol/L (3.5-5.1)
[2024-08-04] MEDS: magnesium sulfate premix 2 GM/50 ML PIGGYBACK IV (06:50)
[2024-08-04] MEDS: tacrolimus 0.5 mg Capsule 2 MG PO (08:42)
[2024-08-04] MEDS: apixaban 5 mg Tablet PO (08:42)
[2024-08-04] MEDS: FUROsemide 10 mg/mL SDV 4mL 40 MG IVP (08:42)
[2024-08-04] MEDS: pantoprazole DR 40 mg Tablet PO (08:42)
[2024-08-04] MEDS: amiodarone 200 mg Tablet 400 MG PO (08:42)
[2024-08-04] MEDS: memantine 5 mg tablet 10 MG PO (08:42)
[2024-08-04] MEDS: metoprolol tartrate 25 mg Tablet PO (08:42)
[2024-08-04] MEDS: potassium chloride ER 20 mEq Tablet PO (08:42)
--- NOTE | 2024-08-04 11:55 | PC.SOCIAL ---
IMM Update Pg. 2 of IMM updated. Initialed, dated, and timed, copy provided at bedside.
--- NOTE | 2024-08-04 14:02 | P.DS_ITS ---
Discharge Providers Date of Admission: 08/02/24 15:46 Date of Discharge: August 04, 2024 Attending Provider at Admission: Cristine Zamora MD Attending Provider at Discharge: Louis Peguero MD Primary Care Provider: Mason Mcdonough DO Diagnoses at Discharge Discharge Diagnosis (1) Atrial fibrillation with rapid ventricular response: Status: Acute (2) New onset of congestive heart failure: Status: Acute Reason for Visit Reason for Visit: SOB Hospital Course Hospital Course Patient presented to the hospital, with atrial fibrillation with rapid ventricular rates. She had evidence of congestive heart failure. IV Lasix was started. Cardizem was trialed, but changed to amiodarone when it was not effective. This drove her heart rate down. Cardiology evaluated her and believed cardioversion was necessary. A CJ was performed and cardioversion occurred. Following this, she remained in sinus rhythm. Metoprolol was added. On discharge day, she was able to be weaned down to room air. Heart failure was compensated. Rhythm was sinus. It was thought she could be discharged home, on current medications. She will take amiodarone for 400 mg twice daily for 1 week, then decrease to 400 mg once daily. She will follow-up with cardiology and get further dose reductions. Her transplant team at [facility] was notified, who will be following up as well with tacrolimus and liver testing. I asked that she get a BMP in 1 week as she will go on a low-dose of Lasix and potassium. Both her and her were informed, able to ask questions and agreed with the plan. Physical Exam Narrative: General Exam no distress Neck is supple Cardiovascular regular rate and rhythm Lungs clear Abdomen soft Extremities no cyanosis clubbing edema Discharge Data Studies Completed and Pending Completed Studies During Hospitalization Category Date Time Status XR chest 1V portable [id number] Stat Exams 08/02/24 10:58 Completed Pending at discharge Category [place] [id number] Urgent Ultrasound 08/03/24 12:30 Taken Radiology Impressions Chest X-Ray 08/02/24 10:58 IMPRESSION: 1. Cardiac enlargement with increased pulmonary vascularity and bibasal pleural effusions most likely indicating CHF. Laboratory Results WBC 4.48 10^3/uL (3.29-11.43) 08/04/24 03:00 RBC 3.93 10^6/uL (3.85-5.65) 08/04/24 03:00 Hgb 11.80 g/dL (11.27-16.99) 08/04/24 03:00 Hct 35.4 % (36-47) L 08/04/24 03:00 MCV 90.1 fl (85-98) 08/04/24 03:00 MCH 30.0 pg (27-33) 08/04/24 03:00 MCHC 33.3 g/dL (30-55) 08/04/24 03:00 RDW 14.0 % (12.1-15.1) 08/04/24 03:00 Plt Count 176 10^3/cmm (157-399) 08/04/24 03:00 MPV 9.9 fL (7.4-10.4) 08/04/24 03:00 Neut % (Auto) 64.1 % 08/04/24 03:00 Lymph % (Auto) 24.6 % 08/04/24 03:00 [place] % (Auto) 8.7 % 08/04/24 03:00 Eos % (Auto) 1.8 % 08/04/24 03:00 Baso % (Auto) 0.4 % 08/04/24 03:00 Neut # (Auto) 2.87 10^3/uL (1.8-7.7) 08/04/24 03:00 Lymph # (Auto) 1.1 10^3/uL (0.8-4.8) 08/04/24 03:00 [place] # (Auto) 0.4 10^3/uL (0.2-0.9) 08/04/24 03:00 Eos # (Auto) 0.1 10^3/uL (0.0-0.8) 08/04/24 03:00 Baso # (Auto) 0.0 10^3/uL (0.0-0.1) 08/04/24 03:00 Nucleated RBC % (auto) 0 % 08/04/24 03:00 Nucleated RBCs # 0.0 /100WBC 08/04/24 03:00 Sodium 134 mmol/L (136-145) L 08/04/24 03:00 Potassium 4.1 mmol/L (3.5-5.1) 08/04/24 03:00 Chloride 97 mmol/L (98-107) L 08/04/24 03:00 Carbon Dioxide 23 mmol/L (22-29) 08/04/24 03:00 Anion Gap 18.1 (5-19) 08/04/24 03:00 BUN 14 mg/dL (8-23) 08/04/24 03:00 Creatinine 1.1 mg/dL (0.5-0.9) H 08/04/24 03:00 GFR Calculation Not Reportable 08/04/24 03:00 Glucose 107 mg/dL (65-115) 08/04/24 03:00 Calculated Osmolality 279 mOsm/kg (285-295) L 08/04/24 03:00 Calcium 8.7 mg/dL (8.5-10.5) 08/04/24 03:00 Magnesium 1.6 mg/dL (1.7-2.3) L 08/04/24 03:00 Total Bilirubin 0.3 mg/dL (0.15-1.2) 08/04/24 03:00 AST 19 U/L (0-32) 08/04/24 03:00 ALT 20 U/L (0-33) 08/04/24 03:00 Alkaline Phosphatase 87 U/L (35-105) 08/04/24 03:00 NT-Pro-B Natriuret Pep 3257 pg/mL (0-450) H 08/02/24 11:51 Total Protein 6.0 g/dL (6.6-8.7) L 08/04/24 03:00 Albumin 3.7 g/dL (3.5-5.2) 08/04/24 03:00 Globulin 2.3 g/dL (1.3-4.6) 08/04/24 03:00 TSH 6.84 uIU/mL (0.27-4.20) H 08/03/24 02:45 Urine Color Yellow (Yellow) 08/02/24 12:33 Urine Appearance Clear (CLEAR) 08/02/24 12:33 Urine pH 6.0 (5-7) 08/02/24 12:33 Ur Specific [place] 1.007 (1.005-1.030) 08/02/24 12:33 Urine Protein Negative (Negative) 08/02/24 12:33 Urine Glucose (UA) Negative (Normal) 08/02/24 12:33 Urine Ketones Negative (Negative) 08/02/24 12:33 Urine Blood Negative (Negative) 08/02/24 12:33 Urine Nitrate Negative (Negative) 08/02/24 12:33 Urine Bilirubin Negative (Negative) 08/02/24 12:33 Urine Urobilinogen 0.2 mg/dL (Negative) 08/02/24 12:33 Ur Leukocyte Esterase Negative (Negative) 08/02/24 12:33 Amorphous Sediment Not Reportable 08/02/24 12:33 Vitals Last Vital Signs Temp 97.5 F L 08/04/24 10:57 Pulse 71 08/04/24 10:57 Resp 18 08/04/24 10:57 BP 114/67 08/04/24 10:57 Pulse Ox 96 08/04/24 10:57 O2 Del Method Nasal Cannula 08/04/24 10:57 O2 Flow Rate 2 08/04/24 10:57 Discharge Plan Discharge Patient Disposition: Home Condition: Stable Prescriptions: New amiodarone [Pacerone] 200 mg Tablet 400 mg PO BID Qty: 60 0RF metoprolol tartrate 25 mg Tablet 25 mg PO BID Qty: 60 0RF furosemide [Lasix] 20 mg tablet 20 mg PO DAILY Qty: 30 0RF potassium chloride 10 mEq capsule, extended release 10 meq PO DAILY Qty: 30 0RF Continued multivitamin Tablet 1 tab PO BID ascorbic acid (vitamin C) 500 mg capsule 500 mg PO BID cholecalciferol (vitamin D3) 50 mcg (2,000 unit) capsule 5,000 unit PO DAILY (DME) Sole supports See Rx Instructions .Route .MEDSUPPLY Qty: 1 0RF Rx Instructions: As directed omega-3 fatty acids-fish oil 684-1,200 mg capsule,delayed release(DR/EC) 1 cap PO DAILY omeprazole 40 mg capsule,delayed release(DR/EC) 40 mg PO DAILY Eliquis 5 mg tablet 5 mg PO BID memantine 10 mg tablet 10 mg PO BID Qty: 60 5RF [place] Probiotics 1 cap PO BID Macuguard Eye Vitamins 1 cap PO DAILY magnesium 200 mg tablet 100 mg PO DAILY tacrolimus 1 mg capsule 2 mg PO BID Discontinued metoprolol tartrate 75 mg tablet 75 mg PO BID Qty: 60 0RF diltiazem HCl 120 mg capsule,extended release 24 hr 120 mg PO QPM Discharge Orders: Discharge Order (Routine); Ordered 08/04/24 Ordered By: Louis Peguero Referrals: Mason Mcdonough, [Primary Care Provider] - 4-7 days (Patient will need to call office and make follow up appt in 7 days ) Kylee Olguin FNP [Nurse Practitioner] - 4-7 days (BMP on follow up) Discharge Diet: Cardiac Discharge Activity: Increase activity as tolerated Patient Instructions: Amiodarone (By mouth), A-fib (Atrial Fibrillation) (DC), Cardioversion (DC), Opioid Safety Activity Restrictions/Additional Instructions: Take all medicine as prescribed Amiodarone dosing should be 400 mg twice daily for 1 week then 400 mg once a day a day. Further taper on cardiology follow-up. Return for any concerns. Follow-up with your primary care provider 3 to 5 days, BMP on follow-up. Discharge Attestations Time Spent in Discharge Care*: greater than 30 min Status at Discharge: Cognitive status at discharge: cognitively intact , Behavioral status at discharge: cooperative , Quality Metrics Clinical Quality Measures [ No reported AMI, CVA or VTE this stay] Coding Level of Care Code 66571 Total time (in minutes) for Discharge: 56 Diagnoses Atrial fibrillation with rapid ventricular response I48.91 New onset of congestive heart failure I50.9
--- NOTE | 2024-08-04 14:49 | PC.NURSE ---
Patient discharged to home. Instruction provided regarding follow up information and new medications with changes. New medications transmitted to [facility]. Patient denies pain or needs. No distress observed. Patient taken by wheelchair to private vehicle with spouse by side.
--- NOTE | 2024-08-04 19:08 | P.PN_ITS ---
Subjective 2 Subjective: The patient is feeling much better. Her vitals are stable. Telemetry shows sinus rhythm. Occasional short runs of PAT's Vitals/I&O/Wt Last Vital Signs Temp 97.5 F L 08/04/24 10:57 Pulse 71 08/04/24 14:47 Resp 24 H 08/04/24 14:47 BP 114/67 08/04/24 14:47 Pulse Ox 97 08/04/24 14:47 O2 Del Method Nasal Cannula 08/04/24 10:57 O2 Flow Rate 2 08/04/24 10:57 08/04/24 08/04/24 08/04/24 06:59 14:59 22:59 Intake Total 200 / 1620.066 650 / 650 Output Total 650 / 1750 100 / 100 Balance -450 / -129.934 550 / 550 Weight last 48 hrs Weight 149 lb 6.4 oz Weight 149 lb 6.4 oz Physical Exam 2 Narrative: GENERAL: The patient is alert and oriented times three. Not in any acute distress. HEENT: No significant pallor, icterus or lymphadenopathy.Oral cavity: There are no mucous membrane lesions. NECK: Trachea appears to be central. No masses noted. No JVD or thyromegaly appreciated. RESPIRATORY: Chest is symmetrical. No intercostals muscle retraction or any accessory muscle activation. There is no chest wall tenderness. Breath sounds are heard bilaterally. No rales or rhonchi heard. No evidence of any consolidation. BREASTS: Deferred. HEART: The heart sounds are normal. No S3 or S4. Short systolic murmur in the left border. No diastolic murmurs. No pericardial rub ABDOMEN: No vessel pulsations or distention. No tenderness. No organomegaly appreciated. Bowel sounds are normally heard. : Deferred. RECTAL: Deferred. LYMPHATIC: No lymphadenopathy noted in the neck. EXTREMITIES: 1+ edema both lower extremities. No cyanosis. MUSCULOSKELETAL: No acute joint deformities or swelling SKIN: There are no significant rashes or ecchymosis NEUROPSYCHIATRIC: The patient is alert and oriented x3. Appears to be in a good mood. No tremors or rigidity noted. Data 08/04/24 03:00 08/04/24 03:00 Other Labs: Laboratory Last Values WBC 4.48 10^3/uL (3.29-11.43) 08/04/24 03:00 RBC 3.93 10^6/uL (3.85-5.65) 08/04/24 03:00 Hgb 11.80 g/dL (11.27-16.99) 08/04/24 03:00 Hct 35.4 % (36-47) L 08/04/24 03:00 MCV 90.1 fl (85-98) 08/04/24 03:00 MCH 30.0 pg (27-33) 08/04/24 03:00 MCHC 33.3 g/dL (30-55) 08/04/24 03:00 RDW 14.0 % (12.1-15.1) 08/04/24 03:00 Plt Count 176 10^3/cmm (157-399) 08/04/24 03:00 MPV 9.9 fL (7.4-10.4) 08/04/24 03:00 Neut % (Auto) 64.1 % 08/04/24 03:00 Lymph % (Auto) 24.6 % 08/04/24 03:00 [place] % (Auto) 8.7 % 08/04/24 03:00 Eos % (Auto) 1.8 % 08/04/24 03:00 Baso % (Auto) 0.4 % 08/04/24 03:00 Neut # (Auto) 2.87 10^3/uL (1.8-7.7) 08/04/24 03:00 Lymph # (Auto) 1.1 10^3/uL (0.8-4.8) 08/04/24 03:00 [place] # (Auto) 0.4 10^3/uL (0.2-0.9) 08/04/24 03:00 Eos # (Auto) 0.1 10^3/uL (0.0-0.8) 08/04/24 03:00 Baso # (Auto) 0.0 10^3/uL (0.0-0.1) 08/04/24 03:00 Nucleated RBC % (auto) 0 % 08/04/24 03:00 Nucleated RBCs # 0.0 /100WBC 08/04/24 03:00 Sodium 134 mmol/L (136-145) L 08/04/24 03:00 Potassium 4.1 mmol/L (3.5-5.1) 08/04/24 03:00 Chloride 97 mmol/L (98-107) L 08/04/24 03:00 Carbon Dioxide 23 mmol/L (22-29) 08/04/24 03:00 Anion Gap 18.1 (5-19) 08/04/24 03:00 BUN 14 mg/dL (8-23) 08/04/24 03:00 Creatinine 1.1 mg/dL (0.5-0.9) H 08/04/24 03:00 GFR Calculation Not Reportable 08/04/24 03:00 Glucose 107 mg/dL (65-115) 08/04/24 03:00 Calculated Osmolality 279 mOsm/kg (285-295) L 08/04/24 03:00 Calcium 8.7 mg/dL (8.5-10.5) 08/04/24 03:00 Magnesium 1.6 mg/dL (1.7-2.3) L 08/04/24 03:00 Total Bilirubin 0.3 mg/dL (0.15-1.2) 08/04/24 03:00 AST 19 U/L (0-32) 08/04/24 03:00 ALT 20 U/L (0-33) 08/04/24 03:00 Alkaline Phosphatase 87 U/L (35-105) 08/04/24 03:00 NT-Pro-B Natriuret Pep 3257 pg/mL (0-450) H 08/02/24 11:51 Total Protein 6.0 g/dL (6.6-8.7) L 08/04/24 03:00 Albumin 3.7 g/dL (3.5-5.2) 08/04/24 03:00 Globulin 2.3 g/dL (1.3-4.6) 08/04/24 03:00 TSH 6.84 uIU/mL (0.27-4.20) H 08/03/24 02:45 Urine Color Yellow (Yellow) 08/02/24 12:33 Urine Appearance Clear (CLEAR) 08/02/24 12:33 Urine pH 6.0 (5-7) 08/02/24 12:33 Ur Specific [place] 1.007 (1.005-1.030) 08/02/24 12:33 Urine Protein Negative (Negative) 08/02/24 12:33 Urine Glucose (UA) Negative (Normal) 08/02/24 12:33 Urine Ketones Negative (Negative) 08/02/24 12:33 Urine Blood Negative (Negative) 08/02/24 12:33 Urine Nitrate Negative (Negative) 08/02/24 12:33 Urine Bilirubin Negative (Negative) 08/02/24 12:33 Urine Urobilinogen 0.2 mg/dL (Negative) 08/02/24 12:33 Ur Leukocyte Esterase Negative (Negative) 08/02/24 12:33 Amorphous Sediment Not Reportable 08/02/24 12:33 A&P Assessment and plan (1) Acute diastolic heart failure: The heart failure seems to have resolved. Patient may be kept on a low-dose of Lasix and potassium. Continue on the antihypertensive medications. (2) Atrial fibrillation with rapid ventricular response: Patient is on amiodarone 4 mg p.o. twice daily. May be discharged home with this medication. We may taper down this as an outpatient. Also continue on metoprolol 25 mg p.o. twice daily (3) Hypertension: Try to optimize the afterload reducing agents. Qualifiers: Hypertension type: primary hypertension Qualified Code(s): I10 - Essential (primary) hypertension (4) Recurrent cerebrovascular accidents (CVAs): Patient may be kept on the current dose of the Eliquis. (5) PVC (premature ventricular contraction): Stable with no significant arrhythmias. May continue on the current management. (6) Pulmonary hypertension: May start her on a low-dose of a calcium frandy as an outpatient. Since her blood pressure is in the normal range, I may hold off on this for the time being Plan If the patient continues remain stable, may be discharged home on the current medication. Need to be seen in the [facility] in 1 week. Will taper down the dose of amiodarone as an outpatient. Had discussion with the transplant team in [facility] regarding the continuation of the amiodarone This transplant team agreed to follow-up on this with the frequent blood test. I will be seeing her in the office in 1 month. Attestations 2 Medical Necessity Statement*: Possible discharge home today. Coding Level of Care Code 78306 Diagnoses Acute diastolic heart failure I50.31 Atrial fibrillation with rapid ventricular response I48.91 Primary hypertension I10 Hypertension type: primary hypertension Recurrent cerebrovascular accidents (CVAs) I63.9 PVC (premature ventricular contraction) I49.3 Pulmonary hypertension I27.20
== END 2024-08-04 14:48 | disposition home or self-care (01) | DRG 308 ==
LOC: ER 11:24 → CSU 15:46
PROVIDERS: Emergency Medicine; Internal Medicine; Admitting Provider Student in an Organized Health Care Education/Training Program; Emergency Provider Family Medicine; PCP Electrodiagnostic Medicine; Visit Provider Internal Medicine
DX: I48.91 Unspecified atrial fibrillation (principal); I50.31 Acute diastolic (congestive) heart failure; Z94.4 Liver transplant status; Z94.0 Kidney transplant status; I11.0 Hypertensive heart disease with heart failure; I44.7 Left bundle-branch block, unspecified; I27.20 Pulmonary hypertension, unspecified; Z86.73 Personal history of transient ischemic attack (TIA), and cerebral infarction without residual deficits; Z79.01 Long term (current) use of anticoagulants; Z79.621 Long term (current) use of calcineurin inhibitor
CPT/HCPCS: 36415; 71045; 80048; 80053; 81003; 83735; 83880; 84443; 85025; 93005; 93312; 93320; 93325; 96365; 96375; 96376; 99285; A4222; J0283; J1940; J2704; J3475; J3490; J7040; J7507

== ENCOUNTER → 2024-08-23 14:07 | Outpatient (BNVA) | payer MEDICARE, SELFPAY | PROVIDERS: PCP Electrodiagnostic Medicine; Visit Provider Nurse Practitioner Family | DX: I45.4 Nonspecific intraventricular block (principal); I48.91 Unspecified atrial fibrillation | CPT/HCPCS: 93005 ==

== ENCOUNTER 2024-09-20 14:05 | Outpatient (CLI) | payer MEDICARE, SELFPAY ==
--- NOTE | 2024-09-20 14:07 | XR_ITS ---
WS: [id number] DEXA (DUAL ENERGY X-RAY ABSORPTIOMETRY) Bone mineral density was performed using a DoubleUp machine. HISTORY: POSTMENOPAUSAL COMPARISON: 07/23/2018 Lumbar spine BMD (L1-L4): 0.994 g/cm2 T score: -1.5 Z score: 0.3 Total hip BMD: Left: 0.742 g/cm2. T score: -2.1 Z score: -0.1 Right: 0.806 g/cm2. T score: -1.6 Z score: 0.4 10 year probability of a major osteoporotic fracture is 35.2%. Compared to the prior study from 07/23/2018. Lumbar spine bone mineral density has decreased by 2.5%. Bilateral hips bone mineral density has decreased by 5.1%. XR/XR DEXA axial skeleton* 06515 IMPRESSION: OSTEOPENIA based upon the WHO classification for females. Significant decrease in bone mineral density within both the lumbar spine and h ips since the prior study.
== END 2024-09-20 14:06 | disposition home or self-care (01) ==
LOC: RAD 14:06
PROVIDERS: PCP Electrodiagnostic Medicine; Visit Provider Electrodiagnostic Medicine
DX: Z78.0 Asymptomatic menopausal state (principal); M85.80 Other specified disorders of bone density and structure, unspecified site
CPT/HCPCS: 77080

== ENCOUNTER → 2024-10-11 09:18 | Outpatient (BNVA) | payer MEDICARE, SELFPAY | PROVIDERS: PCP Electrodiagnostic Medicine; Visit Provider Nurse Practitioner Family | DX: I48.91 Unspecified atrial fibrillation (principal); I10 Essential (primary) hypertension; R42 Dizziness and giddiness; R60.9 Edema, unspecified; Z79.01 Long term (current) use of anticoagulants | CPT/HCPCS: 99214 ==

== ENCOUNTER → 2024-12-01 09:43 | Outpatient (BNVA) | payer MEDICARE, SELFPAY | PROVIDERS: PCP Electrodiagnostic Medicine; Visit Provider Internal Medicine Cardiovascular Disease | DX: I48.0 Paroxysmal atrial fibrillation (principal); Z79.01 Long term (current) use of anticoagulants; I10 Essential (primary) hypertension; I49.3 Ventricular premature depolarization; R42 Dizziness and giddiness; G44.89 Other headache syndrome; Z86.73 Personal history of transient ischemic attack (TIA), and cerebral infarction without residual deficits | CPT/HCPCS: 99214 ==

== ENCOUNTER → 2024-12-14 14:35 | Outpatient (BNVA) | payer MEDICARE, SELFPAY | PROVIDERS: PCP Electrodiagnostic Medicine; Visit Provider Specialist | DX: G31.84 Mild cognitive impairment of uncertain or unknown etiology (principal); R42 Dizziness and giddiness; G44.89 Other headache syndrome; I48.0 Paroxysmal atrial fibrillation; R26.9 Unspecified abnormalities of gait and mobility | CPT/HCPCS: 99214 ==

== ENCOUNTER 2025-03-10 14:24 | Outpatient (RCR) | payer MEDICARE, SELFPAY | END 2025-03-24 23:59 | disposition home or self-care (01) | LOC: SPT 14:24 | PROVIDERS: Visit Provider Electrodiagnostic Medicine | DX: R42 Dizziness and giddiness (principal) | CPT/HCPCS: 95992; 97161 ==

== ENCOUNTER → 2025-03-28 10:38 | Outpatient (BNVA) | payer MEDICARE, SELFPAY | PROVIDERS: Visit Provider Internal Medicine Cardiovascular Disease | DX: I48.91 Unspecified atrial fibrillation (principal); Z79.01 Long term (current) use of anticoagulants; I11.0 Hypertensive heart disease with heart failure; I50.30 Unspecified diastolic (congestive) heart failure; R42 Dizziness and giddiness; I49.3 Ventricular premature depolarization; R51.9 Headache, unspecified; Z86.73 Personal history of transient ischemic attack (TIA), and cerebral infarction without residual deficits; R07.9 Chest pain, unspecified; R06.02 Shortness of breath | CPT/HCPCS: 80048; 83880; 93005; 99214 ==

== ENCOUNTER 2025-04-01 12:42 | Inpatient (IN) | payer MEDICARE, SELFPAY ==
[2025-04-01] VITALS (7 sets, daily range): BP systolic 102–134; BP diastolic 62–81; PULSE 88–111; RESP 16–29; TEMP 36.6–36.8; O2SAT 90–93; BMI 26.5; BMI 27.3
--- NOTE | 2025-04-01 12:45 | ECG_ITS ---
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 Measurements Intervals [place] Rate: 103 P: 0 [place]: 0 QRS: 87 QRSD: 90 T: 260 QT: 308 QTc: 404 Interpretive Statements ATRIAL FIBRILLATION WITH RAPID VENTRICULAR RESPONSE WITH ABERRANT CONDUCTION OR VENTRICULAR PREMATURE COMPLEXES SEPTAL MYOCARDIAL INFARCTION , PROBABLY OLD [40+ ms Q WAVE IN V1/V2] ST DEVIATION AND MODERATE T-WAVE ABNORMALITY, CONSIDER LATERAL ISCHEMIA [-0.1+ mV T-WAVE IN I/aVL/V5/V6] IVCD, CONSIDER ATYPICAL LBBB Compared to ECG 03/28/2025 10:44:28 Myocardial infarct finding now present Possible ischemia now present Atrial flutter no longer present T-wave abnormality still present Electronically Signed On 04-01-2025 13:44:41 CDT by Herb Minor M.D. [email or web address]
--- OUTSIDE RECORDS SUMMARY | 2025-04-01 12:46 | XMS_ITS | Encounter Summary ---
Author Organization [facility] Address [address] [place] [address] Care Team Providers Care Sales Support Assistant Name Role Phone Smith Martínez Primary Care Provide r Encounter Details Date Type Department Care Team (Late st Contact Info) Description 07/19/2008 Outpatient Historical [facility] RADIOLOGY NEUROP Christiano Ramírez MD NO ADDRESS ON FILE Other Ascites Social History Tobacco Use Types Packs/Day Years Used Date Smoking Tobacco: Never Alcohol Use Standard Drinks/Week Comments No 0 (1 standard drink = 0.6 oz pur e alcohol) Comments No Sex and Gender Information Value Date Recorded Sex Assigned at Not on file Legal Sex Female 6:13 AM [employer]ION[employer] SYSTEMS INTEGRATION SPECIALIST Gender Identity Not on file Sexual Orientation Not on file documented as of this encounter Plan of Treatment Not on file documented as of this encounter Procedures Procedure Name Priority Date/Time Associated Diagnosis Comments US GUIDED ASPIRATION Routine 07/20/2008 9:10 AM [employer] SYSTEMS INTEGRATION SPECIALIST PT AND APTT Stat 07/20/2008 8:22 AM [employer] INTEGRATION SPECIALIST PLATELET COUNT Stat 07/20/2008 8:22 AM [employer] INTEGRATION SPECIALIST documented in this encounter Results * US GUIDED ASPIRATION (07/20/2008 9:10 AM [employer] SYSTEMS INTEGRATION SPECIALIST) Anatomical Region Laterality Modality Other 07/20/2008 9:10 AM [employer]S INTEGRATION SPECIALIST Narrative 07/20/2008 3:53 PM [employer]S INTEGRATION SPECIALIST ULTRASOUND GUIDED PARACENTESIS: Date: 07/20/2008 Brief History: This is a patient referred from Dr. Christiano Ramírez with history of cirrhosis with recurrent ascites. Consent: Following detailed discussion in regards to this procedure as well as potential complications and risks with the patient and her , a written consent was obtained from the patient. Description of Procedure: The patient was placed in a supine position, and ultrasound was utilized to evaluate the abdomen for the largest pocket of free fluid. The left lower quadrant was selected. The area was marked, prepped, and draped in the usual sterile fashion. Local anesthesia was achieved with 1% lidocaine overlying the proposed needle course. A small incision was then made with an 11-blade followed with the insertion of a 7 cm 18-gauge Yueh centesis catheter, through which approximately 5,000 mL of a clear yellow fluid was then drained via vacuum bottles. The centesis catheter was removed in its entirety, the Betadine cleansed from the skin, and a sterile dressing placed. The patient was then transferred to the angio recovery area for a brief observation period in stable and comfortable condition, having tolerated the procedure well. - Dictated By: Jakub Whiteside Electronically Signed By: Blaise Correia MD Date Signed: 07/20/08 [facility] Procedure Note Blaise Correia - 07/20/2008 ULTRASOUND GUIDED PARACENTESIS: Date: 07/20/2008 Brief History: This is a patient referred from Dr. Christiano Ramírez withhistory of cirrhosis with recurrent ascites. Consent: Following detailed discussion in regards to this procedure aswell as potential complications and risks with the patient and her , a written consent was obtainedfrom the patient. Description of Procedure: The patient was placed in a supine position,and ultrasound was utilized to evaluate the abdomen for the largest pocket of free fluid. The left lowerquadrant was selected. The area was marked, prepped, and draped in the usual sterile fashion. Localanesthesia was achieved with 1% lidocaine overlying the proposed needle course. A small incision wasthen made with an 11-blade followed with the insertion of a 7 cm 18-gauge Yueh centesis catheter,through which approximately 5,000 mL of a clear yellow fluid was then drained via vacuum bottles. Thecentesis catheter was removed in its entirety, the Betadine cleansed from the skin, and a sterile dressingplaced. The patient was then transferred to the angio recovery area for a brief observation period instable and comfortable condition, having tolerated the procedure well. - Dictated By: Jakub Whiteside Electronically Signed By: Masood SHOEMAKER J Stacy Date Signed: 07/20/08 VITALIY us Christiano Ramírez MD US ORDERABLES Final Result * (ABNORMAL) PT AND APTT (07/20/2008 8:22 AM [employer] INTEGRATION SPECIALIST) PROTIME 19.5(H) 12.8 - 15.8 Secs [facility] Comment:As of 2007 not e change in normal range. PTT 35.4 22.5 - 36.5 Secs [facility] Comment: Therapeutic Range: Hi-level PE/DVT heparin protocol 80.1 -95.0 sec Lo-level PE/DVT heparin protocol 67.1 - 80.0 sec Cardiac Heparin Protocol 67.1 - 85.0 sec Neuro Heparin Protocol 67.1 - 80.0 sec As of 11/12/2007 note change in APTT Normal Range. INR 1.5 [facility] Comment: Expected Values for INR: DVT/PE Goal INR 2.5; range 2.0 - 3.0 Valve Replacement Tissue Goal INR 2.5; range 2.0 - 3.0 Mechanical Goal INR 3.0; range 2.5 - 3.5 POST-GA Goal INR 2.5; range 2.0 - 3.0 or Goal 3.0; range 2.5 - 3.5 Atrial Fibrillation Goal INR 2.5; range 2.0 - 3.0 Ischemic Stroke Goal INR 2.5; range 2.0 - 3.0 For additional information see Guidelines for Anticoagulation available from the pharmacy [facility]angel Pharm D. [phone] Blood specimen (specimen) 07/20/2008 8:22 AM [employer] INTEGRATION SPECIALIST 07/20/2008 8:22 AM [employer] INTEGRATION SPECIALIST us Christiano Ramírez MD HEMATOLOGY ORDERABLES Edited INTERFACE SYSTEM Refer to clinic/hospital department [facility] CLIA# [id number] [address] [place] [id number] * (ABNORMAL) PLATELET COUNT (07/20/2008 8:22 AM [employer]S INTEGRATION SPECIALIST) PLATELETS 32(L) 140 - 440 K/ul [facility] PLATELET EST. Decreased( A) Normal [facility] Blood specimen (specimen) 07/20/2008 8:22 AM [employer] INTEGRATION SPECIALIST 07/20/2008 8:22 AM [employer] INTEGRATION SPECIALIST us Christiano Ramírez MD HEMATOLOGY ORDERABLES Edited INTERFACE SYSTEM Refer to clinic/hospital department [facility] CLIA# [id number] [facility] [place] [address] documented in this encounter Visit Diagnoses Diagnosis Other ascites documented in this encounter Care Teams Sales Support Assistant Relationship Specialty Start Date End Date Smith Martínez DO [address] [address] PCP - General Internal Medicine 08/06/18 documented as of this encounter
--- OUTSIDE RECORDS SUMMARY | 2025-04-01 12:46 | XMS_ITS | Encounter Summary ---
Author Organization [facility] Address [address] [place] [address] Care Team Providers Care Hat Forming Machine Feeder Name Role Phone Smith Martínez Primary Care Provide r Encounter Details Date Type Department Care Team (Late st Contact Info) Description 08/01/2008 Outpatient Historical [facility] RADIOLOGY NEUROP Christiano Ramírez MD NO ADDRESS ON FILE Other Ascites Social History Tobacco Use Types Packs/Day Years Used Date Smoking Tobacco: Never Alcohol Use Standard Drinks/Week Comments No 0 (1 standard drink = 0.6 oz pur e alcohol) Comments No Sex and Gender Information Value Date Recorded Sex Assigned at Not on file Legal Sex Female 6:13 AM CORPORATE COMMUNICATIONS SPECIALIST Gender Identity Not on file Sexual Orientation Not on file documented as of this encounter Plan of Treatment Not on file documented as of this encounter Procedures Procedure Name Priority Date/Time Associated Diagnosis Comments US GUIDED ASPIRATION Routine 08/02/2008 11:02 AM CORPORATE COMMUNICATIONS SPECIALIST PT AND APTT Stat 08/02/2008 10:26 AM CORPORATE COMMUNICATIONS SPECIALIST PLATELET COUNT Stat 08/02/2008 10:26 AM CORPORATE COMMUNICATIONS SPECIALIST documented in this encounter Results * US GUIDED ASPIRATION (08/02/2008 11:02 AM CORPORATE COMMUNICATIONS SPECIALIST) Anatomical Region Laterality Modality Other 08/02/2008 11:0 2 AM CORPORATE COMMUNICATIONS SPECIALIST Narrative 08/03/2008 7:43 AM CORPORATE COMMUNICATIONS SPECIALIST Ultrasound Guided Paracentesis: Date: 08/02/2008 Brief History: This is a patient referred from Dr. 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 Consent: Following detailed discussion in regards to this procedure as well as potential complications and risks with the patient, a written consent was obtained from the patient. Description of Procedure: The patient was placed in a supine position, and ultrasound was utilized to evaluate the abdomen for the largest pocket of free fluid. The right lower quadrant was selected. The area was marked, prepped, and draped in the usual sterile fashion. Local anesthesia was achieved with 1% lidocaine overlying the proposed needle course. A small incision was then made with an 11-blade followed with the insertion of a 7 cm 18-gauge Yueh centesis catheter, through which approximately 5000 mL of a clear yellow fluid was [...] Dictated By: Jakub Whiteside Electronically Signed By: Tommy Love M.D., Ph.D. Date Signed: 08/03/08 Procedure Note Tommy Love MD - 08/03/2008 Ultrasound Guided Paracentesis: Date: 08/02/2008 Brief History: This is a patient referred from Dr. Christiano Ramírez withhistory of hepatitis C with cirrhosis and recurrent ascites. Consent: Following detailed discussion in regards to this procedure aswell as potential complications and risks with the patient, a written consent was obtained from thepatient. Description of Procedure: The patient was placed in a supine position,and ultrasound was utilized to evaluate the abdomen for the largest pocket of free fluid. The rightlower quadrant was selected. The area was marked, prepped, and draped in the usual sterile fashion. Localanesthesia was achieved with 1% lidocaine overlying the proposed needle course. A small incision wasthen made with an 11-blade followed with the insertion of a 7 cm 18-gauge Yueh centesis catheter,through which approximately 5000 mL of a clear yellow fluid was then drained via vacuum bottles. Thecentesis catheter was removed in its entirety, the Betadine cleansed from the skin, and a sterile dressingplaced. The patient was then transferred to the angio recovery area for a brief observation period instable and comfortable condition, having tolerated the procedure well. - Dictated By: Jakub Whiteside Electronically Signed By: Tommy Love M.D., Ph.D. Date Signed: 08/03/08 us Christiano Ramírez MD US ORDERABLES Final Result * (ABNORMAL) PT AND APTT (08/02/2008 10:26 AM CORPORATE COMMUNICATIONS SPECIALIST) PROTIME 19.0(H) 12.8 - 15.[address] [facility] Comment:As of 2007 not e change in normal range. PTT 36.5 22.5 - 36.[address] [facility] Comment: Therapeutic Range: Hi-level PE/DVT heparin protocol 80.1 -95.0 sec Lo-level PE/DVT heparin protocol 67.1 - 80.0 sec Cardiac Heparin Protocol 67.1 - 85.0 sec Neuro Heparin Protocol 67.1 - 80.0 sec As of 11/12/2007 note change in APTT Normal Range. INR 1.4 [facility] Comment: Expected Values for INR: DVT/PE Goal INR 2.5; range 2.0 - 3.0 Valve Replacement Tissue Goal INR 2.5; range 2.0 - 3.0 Mechanical Goal INR 3.0; range 2.5 - 3.5 POST-WI Goal INR 2.5; range 2.0 - 3.0 or Goal 3.0; range 2.5 - 3.5 Atrial Fibrillation Goal INR 2.5; range 2.0 - 3.0 Ischemic Stroke Goal INR 2.5; range 2.0 - 3.0 For additional information see Guidelines for Anticoagulation available from the pharmacy James Matos [phone] Blood specimen (specimen) 08/02/2008 10:26 AM CORPORATE COMMUNICATIONS SPECIALIST 08/02/2008 10:26 AM CORPORATE COMMUNICATIONS SPECIALIST us Christiano Ramírez MD HEMATOLOGY ORDERABLES Edited INTERFACE SYSTEM Refer to clinic/hospital department [facility] CLIA# [id number] [address] [place] [address] * (ABNORMAL) PLATELET COUNT (08/02/2008 10:26 AM CORPORATE COMMUNICATIONS SPECIALIST) PLATELET EST. Decreased( A) Normal [facility] PLATELETS 35(L) 140 - 440 K/ul [facility] Blood specimen (specimen) 08/02/2008 10:26 AM CORPORATE COMMUNICATIONS SPECIALIST 08/02/2008 10:26 AM CORPORATE COMMUNICATIONS SPECIALIST us Christiano Ramírez MD HEMATOLOGY ORDERABLES Edited INTERFACE SYSTEM Refer to clinic/hospital department [facility] CLIA# [id number] [address] [place] [address] documented in this encounter Visit Diagnoses Diagnosis Other ascites documented in this encounter Care Teams Hat Forming Machine Feeder Relationship Specialty Start Date End Date Smith Martínez DO [address] [address] PCP - General Internal Medicine 08/06/18 documented as of this encounter
--- OUTSIDE RECORDS SUMMARY | 2025-04-01 12:46 | XMS_ITS | Encounter Summary ---
Author Organization [facility] Address [address] [place] [address] Care Team Providers Care Bleach Range Operator Name Role Phone Smith Martínez Primary Care Provide r Encounter Details Date Type Department Care Team (Late st Contact Info) Description 07/26/2008 Outpatient Historical [facility] RADIOLOGY NEUROP Christiano Ramírez MD NO ADDRESS ON FILE Other Ascites Social History Tobacco Use Types Packs/Day Years Used Date Smoking Tobacco: Never Alcohol Use Standard Drinks/Week Comments No 0 (1 standard drink = 0.6 oz pur e alcohol) Comments No Sex and Gender Information Value Date Recorded Sex Assigned at Not on file Legal Sex Female 6:13 AM HOTEL RECREATIONAL FACILITIES MANAGER Gender Identity Not on file Sexual Orientation Not on file documented as of this encounter Plan of Treatment Not on file documented as of this encounter Procedures Procedure Name Priority Date/Time Associated Diagnosis Comments US GUIDED ASPIRATION Routine 07/26/2008 8:48 AM HOTEL RECREATIONAL FACILITIES MANAGER PT AND APTT Stat 07/26/2008 8:00 AM HOTEL RECREATIONAL FACILITIES MANAGER PLATELET COUNT Stat 07/26/2008 8:00 AM HOTEL RECREATIONAL FACILITIES MANAGER documented in this encounter Results * US GUIDED ASPIRATION (07/26/2008 8:48 AM HOTEL RECREATIONAL FACILITIES MANAGER) Anatomical Region Laterality Modality Other 07/26/2008 8:48 AM HOTEL RECREATIONAL FACILITIES MANAGER Narrative 07/26/2008 1:06 PM HOTEL RECREATIONAL FACILITIES MANAGER ULTRASOUND GUIDED PARACENTESIS: Date: 07/26/2008 Brief History: This is a patient referred [...] Dictated By: Jakub Whiteside Electronically Signed By: Kylee Mcclendon M.D. Date Signed: 07/26/08 [facility] Procedure Note Kylee Mcclendon MD - 07/26/2008 ULTRASOUND GUIDED PARACENTESIS: Date: 07/26/2008 Brief History: This is a patient referred [...] Dictated By: Jakub Whiteside Electronically Signed By: Kylee Mcclendon M.D. Date Signed: 07/26/08 [facility] Christiano Ramírez MD US ORDERABLES Final Result * (ABNORMAL) PT AND APTT (07/26/2008 8:00 AM HOTEL RECREATIONAL FACILITIES MANAGER) PROTIME 19.4(H) 12.8 - 15.8 Secs [facility] Comment:ansiAs of 08/21/2007 note change in normal range. INR 1.5 [facility] Comment: Expected Values for INR: DVT/PE Goal INR 2.5; range 2.0 - 3.0 Valve Replacement Tissue Goal INR 2.5; range 2.0 - 3.0 Mechanical Goal INR 3.0; range 2.5 - 3.5 POST-AL Goal INR 2.5; range 2.0 - 3.0 or Goal 3.0; range 2.5 - 3.5 Atrial Fibrillation Goal INR 2.5; range 2.0 - 3.0 Ischemic Stroke Goal INR 2.5; range 2.0 - 3.0 For additional information see Guidelines for Anticoagulation available from the pharmacy James Matos [phone] PTT 37.1(H) 22.5 - 36.5 Secs [facility] Comment: Therapeutic Range: Hi-level PE/DVT heparin protocol 80.1 -95.0 sec Lo-level PE/DVT heparin protocol 67.1 - 80.0 sec Cardiac Heparin Protocol 67.1 - 85.0 sec Neuro Heparin Protocol 67.1 - 80.0 sec As of 11/12/2007 note change in APTT Normal Range. Blood specimen (specimen) 07/26/2008 8:00 AM HOTEL RECREATIONAL FACILITIES MANAGER 07/26/2008 8:05 AM HOTEL RECREATIONAL FACILITIES MANAGER Christiano Ramírez MD HEMATOLOGY ORDERABLES Edited INTERFACE SYSTEM Refer to clinic/hospital department [facility] CLIA# [id number] [facility] [place] [address] * (ABNORMAL) PLATELET COUNT (07/26/2008 8:00 AM HOTEL RECREATIONAL FACILITIES MANAGER) PLATELETS 42(L) 140 - 440 K/ul [facility] Blood specimen (specimen) 07/26/2008 8:00 AM HOTEL RECREATIONAL FACILITIES MANAGER 07/26/2008 8:05 AM HOTEL RECREATIONAL FACILITIES MANAGER us Christiano Ramírez MD HEMATOLOGY ORDERABLES Final Res ult INTERFACE SYSTEM Refer to clinic/hospital department [facility] CLIA# [id number] [facility] [place] [address] documented in this encounter Visit Diagnoses Diagnosis Other ascites documented in this encounter Care Teams Bleach Range Operator Relationship Specialty Start Date End Date Smith Martínez DO [address] [address] PCP - General Internal Medicine 08/06/18 documented as of this encounter
--- OUTSIDE RECORDS SUMMARY | 2025-04-01 12:46 | XMS_ITS | Encounter Summary ---
Author Organization [facility] Address [address] [place] [address] Care Team Providers Care Molasses And Caramel Operator Name Role Phone Smith Martínez DO Primary Care Provide r Encounter Details Date Type Department Care Team (Latest Contact Info) Description 03/03/2006 Outpatient Historical [facility] Gastroenterology- [place] [id number] [facility] [address] [place] [address] Sloan Vickers MD [address] [place] [address] Dr Lyons 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); Chronic Hepatitis C without Mention of Hepatic Coma (CMS/HCC); Vaccine for viral hepatitis Social History Tobacco Use Types Packs/Day Years Used Date Smoking Tobacco: Never Assessed Comments Unknown Sex and Gender Information Value Date Recorded Sex Assigned at Not on file Legal Sex Female 6:13 AM STUDIO GRIP Gender Identity Not on file Sexual Orientation Not on file documented as of this encounter Plan of Treatment Not on file documented as of this encounter Visit Diagnoses Diagnosis Cirrhosis of liver without mention of alcohol (CMS/HCC)- Primary Cirrhosis of liver without mention of alcohol Chronic hepatitis C without mention of hepatic coma (CMS/HCC) Chronic hepatitis C without mention of hepatic coma Vaccine for viral hepatitis Need for prophylactic vaccination and inoculation against viral hepatitis documented in this encounter Care Teams Molasses And Caramel Operator Relationship Specialty Start Date End Date Smith Martínez DO [address] [facility] [address] [place] [address] PCP - General Internal Medicine 08/06/18 documented as of this encounter
--- OUTSIDE RECORDS SUMMARY | 2025-04-01 12:46 | XMS_ITS | Encounter Summary ---
Author Organization [facility] Address [address] [place] [address] Care Team Providers Care Medical Center Director Name Role Phone Smith Martínez DO Primary Care Provide r Encounter Details Date Type Department Care Team (Late st Contact Info) Description 03/03/2006 Outpatient [facility] [address] [facility] [address] [place] [address] Renea Gruber MD NO ADDRESS ON FILE Other Screening Mammogram (Primary Dx); Chronic Hepatitis C without Mention of Hepatic Coma (CMS/HCC); Vaccine for viral hepatitis Social History Tobacco Use Types Packs/Day Years Used Date Smoking Tobacco: Never Assessed Comments Unknown Sex and Gender Information Value Date Recorded Sex Assigned at Not on file Legal Sex Female 6:13 AM BRUSHER WARP Gender Identity Not on file Sexual Orientation Not on file documented as of this encounter Plan of Treatment Not on file documented as of this encounter Visit Diagnoses Diagnosis Other screening mammogram- Primary Chronic hepatitis C without mention of hepatic coma (CMS/HCC) Chronic hepatitis C without mention of hepatic coma Vaccine for viral hepatitis Need for prophylactic vaccination and inoculation against viral hepatitis documented in this encounter Care Teams Medical Center Director Relationship Specialty Start Date End Date Smith Martínez DO [address] [facility] [address] [place] [address] PCP - General Internal Medicine 08/06/18 documented as of this encounter
--- OUTSIDE RECORDS SUMMARY | 2025-04-01 12:46 | XMS_ITS | Encounter Summary ---
Author Organization [facility] Address [address] [place] [address] Care Team Providers Care Stone Rigger Name Role Phone Smith Martínez DO Primary Care Provide r Encounter Details Date Type Department Care Team (Latest Contact Info) Description 03/03/2006 Outpatient [facility] Breast Center [facility] [address] [place] [address] Amauri Hendrix MD NO ADDRESS ON FILE Other Screening Mammogram (Primary Dx) Social History Tobacco Use Types Packs/Day Years Used Date Smoking Tobacco: Never Assessed Comments Unknown Sex and Gender Information Value Date Recorded Sex Assigned at Not on file Legal Sex Female 6:13 AM SCIENCE AND OPERATIONS OFFICER Gender Identity Not on file Sexual Orientation Not on file documented as of this encounter Plan of Treatment Not on file documented as of this encounter Visit Diagnoses Diagnosis Other screening mammogram- Primary documented in this encounter Care Teams Stone Rigger Relationship Specialty Start Date End Date Smith Martínez DO [address] [place] [address] PCP - General Internal Medicine 08/06/18 documented as of this encounter
--- OUTSIDE RECORDS SUMMARY | 2025-04-01 12:47 | XMS_ITS | Encounter Summary ---
Author Organization [facility] Address [address] [place] [address] Care Team Providers Care Electric Utility Lineworker Name Role Phone Smith Martínez DO Primary Care Provide r Encounter Details Date Type Department Care Team (Latest Contact Info) Description 06/17/2005 Outpatient [facility] [place] [address] Sloan Vickers MD [address] [place] [address] Dr Lyons [address] [place] [address] VIR HEP NEC W/O COMA W HEP C CHRON (CMS/HCC) (Primary Dx); ALCOHOL LIVER DAMAGE NOS (CMS/HCC) Social History Tobacco Use Types Packs/Day Years Used Date Smoking Tobacco: Never Assessed Comments Unknown Sex and Gender Information Value Date Recorded Sex Assigned at Not on file Legal Sex Female 6:13 AM ASSISTANT INFANT TODDLER TEACHER Gender Identity Not on file Sexual Orientation Not on file documented as of this encounter Plan of Treatment Not on file documented as of this encounter Visit Diagnoses Diagnosis Chronic hepatitis C without mention of hepatic coma (CMS/HCC)- Primary Chronic hepatitis C without mention of hepatic coma Alcoholic liver damage, unspecified documented in this encounter Care Teams Electric Utility Lineworker Relationship Specialty Start Date End Date Smith Martínez DO [address] [place] [address] PCP - General Internal Medicine 08/06/18 documented as of this encounter
--- OUTSIDE RECORDS SUMMARY | 2025-04-01 12:47 | XMS_ITS | Encounter Summary ---
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); Unspecified Viral Hepatitis C without Hepatic Coma; Unspecified Essential Hypertension Social History Tobacco Use Types Packs/Day Years Used Date Smoking Tobacco: Never Alcohol Use Standard Drinks/Week Comments No 0 (1 standard drink = 0.6 oz pur e alcohol) Comments Unknown Sex and Gender Information Value Date Recorded Sex Assigned at Not on file Legal Sex Female 6:13 AM MANAGER OF LEARNING Gender Identity Not on file Sexual Orientation Not on file documented as of this encounter Plan of Treatment Not on file documented as of this encounter Procedures Procedure Name Priority Date/Time Associated Diagnosis Comments CELL COUNT WITH DIFFERENTIAL, BODY FLUID Routine 05/19/2008 4:41 PM CDT US GUIDED ASPIRATION Routine 05/19/2008 2:05 PM CDT PT AND APTT Stat 05/19/2008 1:06 PM CDT PLATELET COUNT Stat 05/19/2008 12:24 PM CDT documented in this encounter Results * CELL COUNT WITH DIFFERENTIAL, BODY FLUID (05/19/2008 4:41 PM CDT) BANDS, FLD 1 % [facility] WBC, FLD 160 /mm3 [facility] LYMPHOCYTE, FLD 41 % [facility] APPEARANCE, BODY FLUID Slightly Cloudy [facility] MACROPHAGE, FLD 21 % [facility] RBC, FLD 318 /mm3 [facility] COLOR, FLD Yellow [facility] MESOTHELIAL, FLD 13 % [facility] NEUTROPHILS, FLD 24 % [facility] SOURCE FLUID Ascites [facility] 05/19/2008 4:41 PM CDT 05/19/2008 4:41 PM CDT Christiano Ramírez MD BODY FLUIDS AND STOOLS Final Re sult INTERFACE SYSTEM Refer to clinic/hospital department [facility] CLIA# [id number] [address] [place] [address] * US GUIDED ASPIRATION (05/19/2008 2:05 PM CDT) Anatomical Region Laterality Modality Other 05/19/2008 2:05 PM CDT Narrative 05/20/2008 12:29 AM CDT Ultrasound Guided Paracentesis: Date: 05/19/2008. Brief History: This is a patient referred [...] 18-gauge Yueh centesis catheter, through which approximately 6600 mL of a clear yellow fluid was [...] Dictated By: Jakub Whiteside Electronically Signed By: Salomón Weber M.D. Date Signed: 05/20/08 SHAILESH Procedure Note Salomón Weber - 05/20/2008 Ultrasound Guided Paracentesis: Date: 05/19/2008. Brief History: This is a patient referred [...] cm 18-gauge Yueh centesis catheter,through which approximately 6600 mL of a clear yellow fluid was then drained via vacuum bottles. Thecentesis catheter was removed in its entirety, the Betadine cleansed from the skin, and a sterile dressingplaced. The patient was then transferred to the angio recovery area for a brief observation period instable and comfortable condition, having tolerated the procedure well. - Dictated By: Jakub Whiteside Electronically Signed By: Salomón Weber M.D. Date Signed: 05/20/08 SHAILESH us Christiano Ramírez MD US ORDERABLES Final Result * (ABNORMAL) PT AND APTT (05/19/2008 1:06 PM CDT) PROTIME 17.8(H) 12.8 - 15.8 Secs [facility] Comment:As of 2007 not e change in normal range. PTT 37.1(H) 22.5 - 36.5 Secs [facility] Comment: Therapeutic Range: Hi-level PE/DVT heparin protocol 80.1 -95.0 sec Lo-level PE/DVT heparin protocol 67.1 - 80.0 sec Cardiac Heparin Protocol 67.1 - 85.0 sec Neuro Heparin Protocol 67.1 - 80.0 sec As of 11/12/2007 note change in APTT Normal Range. INR 1.3 [facility] Comment: Expected Values for INR: DVT/PE Goal INR 2.5; range 2.0 - 3.0 Valve Replacement Tissue Goal INR 2.5; range 2.0 - 3.0 Mechanical Goal INR 3.0; range 2.5 - 3.5 POST-NM Goal INR 2.5; range 2.0 - 3.0 or Goal 3.0; range 2.5 - 3.5 Atrial Fibrillation Goal INR 2.5; range 2.0 - 3.0 Ischemic Stroke Goal INR 2.5; range 2.0 - 3.0 For additional information see Guidelines for Anticoagulation available from the pharmacy [facility]. [phone] Blood specimen (specimen) 05/19/2008 1:06 PM CDT 05/19/2008 1:06 PM CDT Christiano Ramírez MD HEMATOLOGY ORDERABLES Edited Performing Organization Address City/[facility] de Phone Number INTERFACE SYSTEM Refer to clinic/hospital department [facility] CLIA# [id number] [address] [place] [address] * (ABNORMAL) PLATELET COUNT (05/19/2008 12:24 PM CDT) PLATELETS 57(L) 140 - 440 K/ul [facility] Blood specimen (specimen) 05/19/2008 12:24 PM CDT 05/19/2008 12:24 PM CDT Christiano Ramírez MD HEMATOLOGY ORDERABLES Final Res ult Performing Organization Address City/[facility]/ZIP Co de Phone Number INTERFACE SYSTEM Refer to clinic/hospital department [facility] CLIA# [id number] [address] [place] [address] documented in this encounter Visit Diagnoses Diagnosis Other ascites Cirrhosis of liver without mention of alcohol (CMS/HCC) Cirrhosis of liver without mention of alcohol Unspecified viral hepatitis C without hepatic coma Unspecified essential hypertension documented in this encounter Care Teams Sociology Faculty Member Relationship Specialty Start Date End Date Smith Martínez DO [address] [address] PCP - General Internal Medicine 08/06/18 documented as of this encounter
--- OUTSIDE RECORDS SUMMARY | 2025-04-01 12:47 | XMS_ITS | Encounter Summary ---
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) Social History Tobacco Use Types Packs/Day Years Used Date Smoking Tobacco: Never Assessed Comments Unknown Sex and Gender Information Value Date Recorded Sex Assigned at Not on file Legal Sex Female 6:13 AM FLOOR BROKER Gender Identity Not on file Sexual Orientation Not on file documented as of this encounter Plan of Treatment Not on file documented as of this encounter Visit Diagnoses Diagnosis Cirrhosis of liver without mention of alcohol (CMS/HCC)- Primary Cirrhosis of liver without mention of alcohol documented in this encounter Care Teams Configuration Management Consultant Relationship Specialty Start Date End Date Smith Martínez DO [address] [place] [address] PCP - General Internal Medicine 08/06/18 documented as of this encounter
--- OUTSIDE RECORDS SUMMARY | 2025-04-01 12:47 | XMS_ITS | Encounter Summary ---
Author Organization [facility] Address [address] [place] [address] Care Team Providers Care Knot Saw Operator Name Role Phone Smith Martínez DO Primary Care Provide r Encounter Details Date Type Department Care Team (Latest Contact Info) Description 10/30/2006 Outpatient Historical [facility] Endoscopy [address] [place] [address] Christiano Ramírez MD NO ADDRESS ON FILE Esophageal Varices without Mention of Bleeding (CMS/HCC) (Primary Dx) Social History Tobacco Use Types Packs/Day Years Used Date Smoking Tobacco: Never Assessed Comments Unknown Sex and Gender Information Value Date Recorded Sex Assigned at Not on file Legal Sex Female 6:13 AM TRUST VAULT CLERK Gender Identity Not on file Sexual Orientation Not on file documented as of this encounter Plan of Treatment Not on file documented as of this encounter Visit Diagnoses Diagnosis Esophageal varices without mention of bleeding (CMS/HCC)- Primary Esophageal varices without mention of bleeding documented in this encounter Care Teams Knot Saw Operator Relationship Specialty Start Date End Date Smith Martínez DO [address] [place] [address] PCP - General Internal Medicine 08/06/18 documented as of this encounter
--- OUTSIDE RECORDS SUMMARY | 2025-04-01 12:47 | XMS_ITS | Encounter Summary ---
Author Organization [facility] Address [address] [place] [address] Care Team Providers Care Home Health Outreach Coordinator Name Role Phone MartínezSmith nowakhaniel Primary Care Provide r Reason for Referral * Radiology Services (Routine) - Closed Specialty Diagnoses / Procedures Referred By Alfredo t Referred To Contact Radiology Diagnoses Encounter for screening mammogram for malignant neoplasm of breast Procedures MAMMO SCRN BILAT 3D CLAUDETTE W OR WO CAD CHG SCREENING MAMMOGRAPHY BI 2-VIEW BREAST INC CAD CHG SCREENING DIGITAL BREAST TOMOSYNTHESIS BI Ligia Parra, JAVA LEAD ARCHITECT [address] [address] Phone: tel: fax: [facility] [address] [address] Phone: tel: fax: Referral ID Status Reason Start Date Expiration Date Visits Re quested Visits Authorized [id number] Closed 02/15/2019 03/17/2020 1 1 Encounter Details Date Type Department Care Team (Late st Contact Info) Description 02/15/2019 Ancillary Orders [facility] Pre-Registration [place] CALL TO MAKE APPOINTMENT ONLY [address] [place] [address] Ligia Parra, JAVA LEAD ARCHITECT [address] [phone] Encounter for screening mammogram for malignant neoplasm of breast Social History Tobacco Use Types Packs/Day Years Used Date Smoking Tobacco: Never Smokeless Tobacco: Never Alcohol Use Standard Drinks/Week Comments No 0 (1 standard drink = 0.6 oz pur e alcohol) Comments No Sex and Gender Information Value Date Recorded Sex Assigned at Not on file 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 Gender Identity Not on file Sexual Orientation Not on file Occupation Industry Job Start Date Job End Date Not on file Not on file Not on file Not on file documented as of this encounter Plan of Treatment Not on file documented as of this encounter Results * MAMMO SCRN BILAT 3D CLAUDETTE W OR WO CAD (03/25/2019 2:54 PM CDT) Anatomical Region Laterality Modality Breast Bilateral Mammography Narrative 03/28/2019 2:18 PM CDT Bilateral Digital Mammogram with CAD and 3D Tomography Reason for Exam: Screening Comparison: Compared to: 01/27/2018 MAMMO SCRN BILAT 3D CLAUDETTE W OR WO CAD, 12/23/2016 MAMMO SCREEN BILAT W OR WO CAD, 12/07/2015 MAMMO DIGITAL SCREEN BILAT, 06/15/2014 MAMMO DIGITAL SCREEN BILAT, and 05/07/2013 MAMMO DIGITAL SCREEN BILAT Technique: 3D MLO and CC digital tomosynthesis images were acquired and synthesized 2D images (C view) were generated. This digital mammogram was also analyzed by the Computer Aided Detection System CAD). Breast Composition: There are scattered areas of fibroglandular density. There are no suspicious masses, areas of architectural distortions, or microcalcifications to suggest malignancy. No significant new findings since the prior mammogram(s). Ligia Parra NP MAMMO ORDERABLES Final Result documented in this encounter Visit Diagnoses Diagnosis Encounter for screening mammogram for malignant neoplasm of breast Other screening mammogram Encounter for screening mammogram for malignant neoplasm of breast Other screening mammogram documented in this encounter Care Teams Home Health Outreach Coordinator Relationship Specialty Start Date End Date Smith Martínez DO [address] [facility] [address] [place] [address] PCP - General Internal Medicine 08/06/18 documented as of this encounter
--- OUTSIDE RECORDS SUMMARY | 2025-04-01 12:47 | XMS_ITS | Encounter Summary ---
Author Organization 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) Social History Tobacco Use Types Packs/Day Years Used Date Smoking Tobacco: Never Alcohol Use Standard Drinks/Week Comments No 0 (1 standard drink = 0.6 oz pur e alcohol) Comments No Sex and Gender Information Value Date Recorded Sex Assigned at Not on file 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 Gender Identity Not on file Sexual Orientation Not on file documented as of this encounter Plan of Treatment Not on file documented as of this encounter Procedures Procedure Name Priority Date/Time Associated Diagnosis Comments PATHOLOGY Routine 06/08/2008 12:22 PM CDT CELL COUNT WITH DIFFERENTIAL, BODY FLUID Routine 06/08/2008 12:04 PM CDT ALBUMIN LEVEL, BODY FLUID Routine 06/08/2008 12:04 PM CDT US GUIDED ASPIRATION Routine 06/08/2008 11:47 AM CDT PATHOLOGY Routine 06/08/2008 11:08 AM CDT PT AND APTT Stat 06/08/2008 10:38 AM CDT PLATELET COUNT Stat 06/08/2008 10:38 AM CDT documented in this encounter Results * PATHOLOGY (06/08/2008 12:22 PM CDT) PATHOLOGY/CYT OLOGY REPORT [facility] [address] Patient: ECHO WRIGHT Accn No: [id number] Collected: 06/08/2008 12:22:00 PM CYTOLOGY NON-GYNECOLOGIC FINAL REPORT Clinical History Specimen Source: ASCITIC FLUID Specimen Description: 1000cc of THIN CLOUDY YELLOW fluid submitted. Fluid was Submitted for Cell Block. Thin Prep Slide Preparation using selective cellular enhancement technique. Patient has a History of CIRRHOSIS Diagnosis NO MALIGNANT CELLS IDENTIFIED Cytotecholog[employer] t: LAUREN, SEC 06/09/08 Completed by: Augusto Chavez M.D. (Electronically signed by) 06/09/08 INTERFACE SYSTEM 06/08/2008 12:2 2 PM CDT Christiano Ramírez MD PATHOLOGY/CYTOLOGY ORDERABLES F inal Result INTERFACE SYSTEM Refer to clinic/hospital department * CELL COUNT WITH DIFFERENTIAL, BODY FLUID (06/08/2008 12:04 PM CDT) MONOCYTE, FLD 23 % [facility] COLOR, FLD Yellow [facility] NEUTROPHILS, FLD 7 % [facility] WBC, FLD 110 /mm3 [facility] SOURCE FLUID Ascites [facility] MACROPHAGE, FLD 19 % [facility] LYMPHOCYTE, FLD 49 % [facility] APPEARANCE, BODY FLUID Clear [facility] MESOTHELIAL, FLD 2 % [facility] RBC, FLD 160 /mm3 [facility] 06/08/2008 12:0 4 PM CDT 06/08/2008 12:05 PM CDT Christiano Ramírez MD BODY FLUIDS AND STOOLS Final Re sult Performing Organization Address [facility] Phone Number INTERFACE SYSTEM Refer to clinic/hospital department [facility] CLIA# [id number] [address] [place] [address] * ALBUMIN LEVEL, BODY FLUID (06/08/2008 12:04 PM CDT) ALBUMIN, FLD <1.0 g/dL [facility] SOURCE FLUID Ascites [facility] 06/08/2008 12:0 4 PM CDT 06/08/2008 12:04 PM CDT Christiano Ramírez MD BODY FLUIDS AND STOOLS Final Re sult Performing Organization Address [facility] Phone Number INTERFACE SYSTEM Refer to clinic/hospital department [facility] CLIA# [id number] [address] [place] [address] * US GUIDED ASPIRATION (06/08/2008 11:47 AM CDT) Anatomical Region Laterality Modality Other 06/08/2008 11:4 7 AM CDT Narrative 06/08/2008 2:32 PM CDT ULTRASOUND GUIDED PARACENTESIS: Date: 06/08/2008 Brief History: This is a patient referred from Dr. 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 Consent: Following detailed discussion in regards to this procedure as well as potential complications and risks with the patient and her , a written consent was obtained from the patient's . Description of Procedure: The patient was placed [...] Signed By: Kylee Mcclendon M.D. Date Signed: 06/08/08 [facility] Procedure Note Kylee Mcclendon MD - 06/08/2008 ULTRASOUND GUIDED PARACENTESIS: Date: 06/08/2008 Brief History: This is a patient referred from Dr. Christiano Ramírez withhistory of hepatitis C with cirrhosis and recurrent ascites. Consent: Following detailed discussion in regards to this procedure aswell as potential complications and risks with the patient and her , a written consent was obtainedfrom the patient's . Description of Procedure: The patient was placed [...] Signed By: Kylee Mcclendon M.D. Date Signed: 06/08/08 [facility] us Christiano Ramírez MD ORDERABLES Final Result * PATHOLOGY (06/08/2008 11:08 AM CDT) PATHOLOGY/CYT OLOGY REPORT [facility] An[facility] Pathology Dept [address] [facility] [address] Patient: ECHO WRIGHT Accn No: [id number] Collected: 06/08/2008 11:08:00 AM SURGICAL PATHOLOGY FINAL REPORT Diagnosis A. Cell block, ascites fluid - negative for malignancy. Augusto Chavez M.D. (Electronically signed by) Verified: 06/09/08 SEC/SEC Clinical Information Ascitic fluid for cell block, Cytology [id number]. Specimen Source ACell Block, ASCITES FLUID Microscopic Description Microscopic examination was performed. Gross Description Part A. Received fresh in a rocket tube labelled Kyle - ascitic fluid are approximately 2 cc of pinkish-brown cloudy gelatinous material. The specimen is submitted entirely for cell block in A1. DLS/WLS INTERFACE SYSTEM 06/08/2008 11:0 8 AM CDT Christiano Ramírez MD PATHOLOGY/CYTOLOGY ORDERABLES F inal Result INTERFACE SYSTEM Refer to clinic/hospital department * (ABNORMAL) PT AND APTT (06/08/2008 10:38 AM CDT) INR 1.4 [facility] Comment: Expected Values for INR: DVT/PE Goal INR 2.5; range 2.0 - 3.0 Valve Replacement Tissue Goal INR 2.5; range 2.0 - 3.0 Mechanical Goal INR 3.0; range 2.5 - 3.5 POST-VA Goal INR 2.5; range 2.0 - 3.0 or Goal 3.0; range 2.5 - 3.5 Atrial Fibrillation Goal INR 2.5; range 2.0 - 3.0 Ischemic Stroke Goal INR 2.5; range 2.0 - 3.0 For additional information see Guidelines for Anticoagulation available from the pharmacy James Matos [phone] PTT 37.6(H) 22.5 - 36.5 Secs [facility] Comment: Therapeutic Range: Hi-level PE/DVT heparin protocol 80.1 -95.0 sec Lo-level PE/DVT heparin protocol 67.1 - 80.0 sec Cardiac Heparin Protocol 67.1 - 85.0 sec Neuro Heparin Protocol 67.1 - 80.0 sec As of 11/12/2007 note change in APTT Normal Range. PROTIME 18.8(H) 12.8 - 15.8 Secs [facility] Comment:As of 2007 not e change in normal range. Blood specimen (specimen) 06/08/2008 10:38 AM CDT 06/08/2008 10:43 AM CDT Christiano Ramírez MD HEMATOLOGY ORDERABLES Edited Performing Organization Address [facility] de Phone Number INTERFACE SYSTEM Refer to clinic/hospital department [facility] CLIA# [id number] [address] [place] [address] * (ABNORMAL) PLATELET COUNT (06/08/2008 10:38 AM CDT) PLATELETS 38(L) 140 - 440 K/ul [facility] Blood specimen (specimen) 06/08/2008 10:38 AM CDT 06/08/2008 10:43 AM CDT Christiano Ramírez MD HEMATOLOGY ORDERABLES Final Res ult Performing Organization Address [facility] de Phone Number INTERFACE SYSTEM Refer to clinic/hospital department [facility] CLIA# [id number] [address] [place] [address] documented in this encounter Visit Diagnoses Diagnosis Cirrhosis of liver without mention of alcohol (CMS/HCC) Cirrhosis of liver without mention of alcohol documented in this encounter Care Teams Sales And Service Representative Relationship Specialty Start Date End Date Smith Martínez DO [address] [address] PCP - General Internal Medicine 08/06/18 documented as of this encounter
--- OUTSIDE RECORDS SUMMARY | 2025-04-01 12:47 | XMS_ITS | Encounter Summary ---
Author Organization [facility] Address [address] [place] [address] Care Team Providers Care Quarter Supervisor Name Role Phone Smith Martínez DO Primary Care Provide r Encounter Details Date Type Department Care Team (Latest Contact Info) Description 09/24/2005 Outpatient [facility] Gastroenterology- [place] [id number] [facility] [address] [place] [address] Sloan Vickers MD [address] [place] [address] [address] [place] [address] ABNORMAL FINDINGS-GI TRACT (Primary Dx); ESOPH VARICES W/O BLEED (CMS/HCC); Acute gastritis; DUODENITIS W/O HEMORRHAGE Social History Tobacco Use Types Packs/Day Years Used Date Smoking Tobacco: Never Assessed Comments Unknown Sex and Gender Information Value Date Recorded Sex Assigned at Not on file 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 Gender Identity Not on file Sexual Orientation Not on file documented as of this encounter Plan of Treatment Not on file documented as of this encounter Visit Diagnoses Diagnosis Nonspecific (abnormal) findings on radiological and other examination of gastrointestinal tract- Primary Esophageal varices without mention of bleeding (CMS/HCC) Esophageal varices without mention of bleeding Acute gastritis Acute gastritis without mention of hemorrhage Duodenitis without mention of hemorrhage documented in this encounter Care Teams Quarter Supervisor Relationship Specialty Start Date End Date Smith Martínez DO [address] [place] [address] PCP - General Internal Medicine 08/06/18 documented as of this encounter
--- OUTSIDE RECORDS SUMMARY | 2025-04-01 12:47 | XMS_ITS | Encounter Summary ---
Author Organization [facility] Address [address] [place] [address] Care Team Providers Care Project Engineer Name Role Phone Smith Martínez DO Primary Care Provide r Encounter Details Date Type Department Care Team (Latest Contact Info) Description 08/15/2005 Outpatient [facility] Gastroenterology[address] [place] [address] Sloan Vickers MD [address] [place] [address] [address] [place] [address] VIR HEP NEC W/O COMA W HEP C CHRON (CMS/HCC) (Primary Dx); CIRRHOSIS OF LIVER NOS (CMS/HCC) Social History Tobacco Use Types Packs/Day Years Used Date Smoking Tobacco: Never Assessed Comments Unknown Sex and Gender Information Value Date Recorded Sex Assigned at Not on file 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 Gender Identity Not on file Sexual Orientation Not on file documented as of this encounter Plan of Treatment Not on file documented as of this encounter Visit Diagnoses Diagnosis Chronic hepatitis C without mention of hepatic coma (CMS/HCC)- Primary Chronic hepatitis C without mention of hepatic coma Cirrhosis of liver without mention of alcohol (CMS/HCC) Cirrhosis of liver without mention of alcohol documented in this encounter Care Teams Project Engineer Relationship Specialty Start Date End Date Smith Martínez DO [address] [place] [address] PCP - General Internal Medicine 08/06/18 documented as of this encounter
--- OUTSIDE RECORDS SUMMARY | 2025-04-01 12:47 | XMS_ITS | Encounter Summary ---
Author Organization [facility] Address [address] [place] [address] Care Team Providers Care Heel Slicker Name Role Phone Smith Martínez DO Primary Care Provide r Encounter Details Date Type Department Care Team (Latest Contact Info) Description 01/01/2007 Outpatient Historical [facility] Endoscopy [place] [address] [place] [address] Christiano Ramírez MD NO ADDRESS ON FILE Other Follow-Up Examination (Primary Dx) Social History Tobacco Use Types Packs/Day Years Used Date Smoking Tobacco: Never Assessed Comments Unknown Sex and Gender Information Value Date Recorded Sex Assigned at Not on file 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
--- OUTSIDE RECORDS SUMMARY | 2025-04-01 12:47 | XMS_ITS | Encounter Summary ---
Author Organization [facility] Address [address] [place] [address] Care Team Providers Care Bailiff Name Role Phone Smith Martínez DO Primary Care Provide r Encounter Details Date Type Department Care Team (Latest Contact Info) Description 10/25/2004 Outpatient Historical [facility] Sherrie Allen FNP NO ADDRESS ON FILE VIR HEP NEC W/O COMA W HEP C CHRON (CMS/HCC) (Primary Dx); CIRRHOSIS OF LIVER NOS (CMS/HCC) Social History Tobacco Use Types Packs/Day Years Used Date Smoking Tobacco: Never Assessed Comments Unknown Sex and Gender Information Value Date Recorded Sex Assigned at Not on file 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
--- OUTSIDE RECORDS SUMMARY | 2025-04-01 12:47 | XMS_ITS | Encounter Summary ---
Author Organization [facility] Address [address] [place] [address] Care Team Providers Care Council On Aging Director Name Role Phone MartínezSmith nowak Primary Care Provide r Encounter Details Date Type Department Care Team (Latest Contact Info) Description 06/21/2008 Outpatient Historical [facility] RADIOLOGY NEUROP Christiano Ramírez MD NO ADDRESS ON FILE Page, Herberth Gallagher DO [address] [place] [address] Other Ascites; Unspecified Viral Hepatitis C without Hepatic Coma; Hyp Kid NOS w Cr Kid V (CMS/HCC); End Stage Renal Disease (CMS/HCC) Social History Tobacco Use Types Packs/Day Years Used Date Smoking Tobacco: Never Alcohol Use Standard Drinks/Week Comments No 0 (1 standard drink = 0.6 oz pur e alcohol) Comments No Sex and Gender Information Value Date Recorded Sex Assigned at Not on file 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 Gender Identity Not on file Sexual Orientation Not on file documented as of this encounter Plan of Treatment Not on file documented as of this encounter Procedures Procedure Name Priority Date/Time Associated Diagnosis Comments US GUIDED ASPIRATION Routine 06/22/2008 7:37 AM CDT PT AND APTT Stat 06/22/2008 7:17 AM CDT PLATELET COUNT Stat 06/22/2008 7:17 AM CDT documented in this encounter Results * US GUIDED ASPIRATION (06/22/2008 7:37 AM CDT) Anatomical Region Laterality Modality Other 06/22/2008 7:37 AM CDT Narrative 06/22/2008 9:21 AM CDT ULTRASOUND GUIDED PARACENTESIS: Date: 06/22/2008 Brief History: This is a patient referred [...] the insertion of a 7 cm 18-gauge Game9z centesis catheter, through which approximately 5,000 mL of clear yellow fluid was then drained via vacuum bottles. The centesis catheter was removed in its entirety, the Betadine cleansed from the skin, and a sterile dressing placed. The patient was then transferred to the angio recovery area for a brief observation period in stable and comfortable condition, having tolerated the procedure well. - Dictated By: Jakub Whiteside Electronically Signed By: Herberth Jurado D.O. Date Signed: 06/22/08 [facility] Procedure Note Herberth Jurado - 06/22/2008 ULTRASOUND GUIDED PARACENTESIS: Date: 06/22/2008 Brief History: This is a patient referred [...] centesis catheter,through which approximately 5,000 mL of clear yellow fluid was then drained via vacuum bottles. Thecentesis catheter was removed in its entirety, the Betadine cleansed from the skin, and a sterile dressingplaced. The patient was then transferred to the angio recovery area for a brief observation period instable and comfortable condition, having tolerated the procedure well. - Dictated By: Jakub Whiteside Electronically Signed By: Herberth Jurado D.O. Date Signed: 06/22/08 [facility] Christiano Ramírez MD ORDERABLES Final Result * (ABNORMAL) PT AND APTT (06/22/2008 7:17 AM CDT) INR 1.3 [facility] Comment: Expected Values for INR: DVT/PE Goal INR 2.5; range 2.0 - 3.0 Valve Replacement Tissue Goal INR 2.5; range 2.0 - 3.0 Mechanical Goal INR 3.0; range 2.5 - 3.5 POST-LA Goal INR 2.5; range 2.0 - 3.0 or Goal 3.0; range 2.5 - 3.5 Atrial Fibrillation Goal INR 2.5; range 2.0 - 3.0 Ischemic Stroke Goal INR 2.5; range 2.0 - 3.0 For additional information see Guidelines for Anticoagulation available from the pharmacy James Matos. [phone] PTT 29.2 22.5 - 36.5 Secs [facility] Comment: Therapeutic Range: Hi-level PE/DVT heparin protocol 80.1 -95.0 sec Lo-level PE/DVT heparin protocol 67.1 - 80.0 sec Cardiac Heparin Protocol 67.1 - 85.0 sec Neuro Heparin Protocol 67.1 - 80.0 sec As of 11/12/2007 note change in APTT Normal Range. PROTIME 17.7(H) 12.8 - 15.8 Secs [facility] Comment:As of 2007 not e change in normal range. Blood specimen (specimen) 06/22/2008 7:17 AM CDT 06/22/2008 7:17 AM CDT us Christiano Ramírez MD HEMATOLOGY ORDERABLES Edited Performing Organization Address [facility] de Phone Number INTERFACE SYSTEM Refer to clinic/hospital department [facility] CLIA# [id number] [address] [place] [address] * (ABNORMAL) PLATELET COUNT (06/22/2008 7:17 AM CDT) PLATELETS 36(L) 140 - 440 K/ul [facility] Blood specimen (specimen) 06/22/2008 7:17 AM CDT 06/22/2008 7:17 AM CDT us Christiano Ramírez MD HEMATOLOGY ORDERABLES Final Res ult Performing Organization Address [facility] de Phone Number INTERFACE SYSTEM Refer to clinic/hospital department [facility] CLIA# [id number] [address] [place] [address] documented in this encounter Visit Diagnoses Diagnosis Other ascites Unspecified viral hepatitis C without hepatic coma 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
--- OUTSIDE RECORDS SUMMARY | 2025-04-01 12:47 | XMS_ITS | Encounter Summary ---
Author Organization [facility] Address [address] [place] [address] Care Team Providers Care News Anchor Name Role Phone Smith Martínez DO Primary Care Provide r Encounter Details Date Type Department Care Team (Latest Contact Info) Description 01/01/2007 Outpatient [facility] Gastroenterology[address] [place] [address] Christiano Ramírez MD NO ADDRESS ON FILE Acute Stomach Ulcer (Primary Dx) Social History Tobacco Use Types Packs/Day Years Used Date Smoking Tobacco: Never Assessed Comments Unknown Sex and Gender Information Value Date Recorded Sex Assigned at Not on file 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
--- OUTSIDE RECORDS SUMMARY | 2025-04-01 12:47 | XMS_ITS | Encounter Summary ---
Author Organization [facility] Address [address] [place] [address] Care Team Providers Care Floor Polisher Name Role Phone Smith Martínez DO Primary Care Provide r Encounter Details Date Type Department Care Team (Latest Contact Info) Description 04/18/[address] 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
--- OUTSIDE RECORDS SUMMARY | 2025-04-01 12:47 | XMS_ITS | Encounter Summary ---
Author Organization [facility] Address [address] [place] [address] Care Team Providers Care Director Of Primary Care Name Role Phone Smith Martínez DO Primary Care Provide r Encounter Details Date Type Department Care Team (Latest Contact Info) Description 12/20/2005 Outpatient [facility] Gastroenterology[address] [place] [address] Sloan Vickers MD [address] [place] [address] [address] [place] [address] Esophageal Varices without Mention of Bleeding (CMS/HCC) (Primary Dx) Social History Tobacco Use Types Packs/Day Years Used Date Smoking Tobacco: Never Assessed Comments Unknown Sex and Gender Information Value Date Recorded Sex Assigned at Not on file 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
--- OUTSIDE RECORDS SUMMARY | 2025-04-01 12:47 | XMS_ITS | Encounter Summary ---
Author Organization 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 Gender Identity Not on file Sexual Orientation Not on file documented as of this encounter Plan of Treatment Not on file documented as of this encounter Procedures Procedure Name Priority Date/Time Associated Diagnosis Comments ALPHA FETOPROTEIN TUMOR MARKER Routine 03/03/2007 1:07 PM CDT documented in this encounter Results * ALPHA FETOPROTEIN TUMOR MARKER (03/03/2007 1:07 PM CDT) ALPHA FETOPROTEIN MATERNAL 3.5 <=8.5 ng/mL INTERFACE SYSTEM 03/03/2007 1:07 PM CDT Christiano Ramírez MD CHEMISTRY ORDERABLES Edited INTERFACE SYSTEM Refer to clinic/hospital department documented in this encounter Visit Diagnoses Not on filedocumented in this encounter Care Teams Delivery Assistant Relationship Specialty Start Date End Date Smith Martínez DO [address] [phone] PCP - General Internal Medicine 08/06/18 documented as of this encounter
--- OUTSIDE RECORDS SUMMARY | 2025-04-01 12:47 | XMS_ITS | Encounter Summary ---
Author Organization [facility] Address [address] [place] [address] Care Team Providers Care Filler Shredder Machine Name Role Phone Smith Martínez DO Primary Care Provide r Encounter Details Date Type Department Care Team (Latest Contact Info) Description 05/13/[address] 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
--- OUTSIDE RECORDS SUMMARY | 2025-04-01 12:47 | XMS_ITS | Encounter Summary ---
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) Social History Tobacco Use Types Packs/Day Years Used Date Smoking Tobacco: Never Assessed Comments Unknown Sex and Gender Information Value Date Recorded Sex Assigned at Not on file 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 Gender Identity Not on file Sexual Orientation Not on file documented as of this encounter Plan of Treatment Not on file documented as of this encounter Visit Diagnoses Diagnosis Acute gastric ulcer without mention of hemorrhage, perforation, or obstruction- Primary Esophageal varices without mention of bleeding (CMS/HCC) Esophageal varices without mention of bleeding Cirrhosis of liver without mention of alcohol (CMS/HCC) Cirrhosis of liver without mention of alcohol documented in this encounter Care Teams Aquatics Group Fitness Instructor Relationship Specialty Start Date End Date Smith Martínez DO [address] [place] [address] PCP - General Internal Medicine 08/06/18 documented as of this encounter
--- OUTSIDE RECORDS SUMMARY | 2025-04-01 12:47 | XMS_ITS | Encounter Summary ---
Author Organization [facility] Address [address] [place] [address] Care Team Providers Care Energy Efficient Site Manager Name Role Phone Smith Martínez DO Primary Care Provide r Encounter Details Date Type Department Care Team (Latest Contact Info) Description 10/01/2006 [facility] [address] [place] [address] Aristides Herzog MD NO ADDRESS ON FILE Impetigo Herpetiformis (Primary Dx); Benign Amandeep Skin Trunk Social History Tobacco Use Types Packs/Day Years Used Date Smoking Tobacco: Never Assessed Comments Unknown Sex and Gender Information Value Date Recorded Sex Assigned at Not on file 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
--- OUTSIDE RECORDS SUMMARY | 2025-04-01 12:47 | XMS_ITS | Encounter Summary ---
Author Organization [facility] Address [address] [place] [address] Care Team Providers Care Poison Information Specialist Name Role Phone Smith Martínez DO Primary Care Provide r Encounter Details Date Type Department Care Team (Late st Contact Info) Description 07/15/2005 Outpatient Historical [facility] [place] [address] [place] [address] Sloan Vickers MD [facility] [address] [place] [address] Social History Tobacco Use Types Packs/Day Years Used Date Smoking Tobacco: Never Assessed Comments Unknown Sex and Gender Information Value Date Recorded Sex Assigned at Not on file 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
--- OUTSIDE RECORDS SUMMARY | 2025-04-01 12:47 | XMS_ITS | Encounter Summary ---
Author Organization [facility] Address [address] [place] [address] Care Team Providers Care Painter Foreman Name Role Phone Smith Martínez DO Primary Care Provide r Encounter Details Date Type Department Care Team (Latest Contact Info) Description 03/03/[address] 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
--- OUTSIDE RECORDS SUMMARY | 2025-04-01 12:47 | XMS_ITS | Encounter Summary ---
Author Organization [facility] Address [address] [place] [address] Care Team Providers Care Road Oiler Name Role Phone Smith Martínez Primary Care Provide r Encounter Details Date Type Department Care Team (Late st Contact Info) Description 07/29/2008 Outpatient Historical HIS RADIOLOGY NEUROP Christiano Ramírez MD NO ADDRESS ON FILE Other Ascites Social History Tobacco Use Types Packs/Day Years Used Date Smoking Tobacco: Never Alcohol Use Standard Drinks/Week Comments No 0 (1 standard drink = 0.6 oz pur e alcohol) Comments No Sex and Gender Information Value Date Recorded Sex Assigned at Not on file Legal Sex Female 6:13 AM GENERAL INTERNAL MEDICINE PHYSICIAN Gender Identity Not on file Sexual Orientation Not on file documented as of this encounter Plan of Treatment Not on file documented as of this encounter Procedures Procedure Name Priority Date/Time Associated Diagnosis Comments CELL COUNT WITH DIFFERENTIAL, BODY FLUID Routine 08/16/2008 2:01 PM GENERAL INTERNAL MEDICINE PHYSICIAN XR CHEST PA OR AP 1 VW Routine 08/16/2008 1:43 PM GENERAL INTERNAL MEDICINE PHYSICIAN US GUIDED ASPIRATION Routine 08/16/2008 12:59 PM GENERAL INTERNAL MEDICINE PHYSICIAN PATHOLOGY Routine 08/16/2008 12:10 PM GENERAL INTERNAL MEDICINE PHYSICIAN US GUIDED ASPIRATION Routine 08/16/2008 12:07 PM GENERAL INTERNAL MEDICINE PHYSICIAN PT AND APTT Stat 08/16/2008 10:36 AM GENERAL INTERNAL MEDICINE PHYSICIAN PLATELET COUNT Stat 08/16/2008 10:36 AM GENERAL INTERNAL MEDICINE PHYSICIAN PATHOLOGY Routine 08/16/2008 6:30 AM GENERAL INTERNAL MEDICINE PHYSICIAN documented in this encounter Results * CELL COUNT WITH DIFFERENTIAL, BODY FLUID (08/16/2008 2:01 PM GENERAL INTERNAL MEDICINE PHYSICIAN) MACROPHAGE, FLD 39 % [facility] SOURCE FLUID Pleural [facility] LYMPHOCYTE, FLD 25 % [facility] WBC, FLD 170 /mm3 [facility] RBC, FLD 385 /mm3 [facility] APPEARANCE, BODY FLUID Slightly Cloudy [facility] MESOTHELIAL, FLD 36 % [facility] COLOR, FLD Yellow [facility] 08/16/2008 2:01 PM GENERAL INTERNAL MEDICINE PHYSICIAN 08/16/2008 2:01 PM GENERAL INTERNAL MEDICINE PHYSICIAN Christiano Ramírez MD BODY FLUIDS AND STOOLS Edited INTERFACE SYSTEM Refer to clinic/hospital department [facility] CLIA# [id number] [address] [place] [address] * XR CHEST PA OR AP (08/16/2008 1:43 PM GENERAL INTERNAL MEDICINE PHYSICIAN) Anatomical Region Laterality Modality Chest Other 08/16/2008 1:43 PM GENERAL INTERNAL MEDICINE PHYSICIAN Narrative 08/16/2008 3:25 PM GENERAL INTERNAL MEDICINE PHYSICIAN A single view of the chest is submitted. The heart size is normal. Prominent density is noted in the right lung base partially obscuring the hemidiaphragm and this may represent partial volume loss or infiltrate. There is no pneumothorax on this expiratory film. The left lung is clear. Impression: 1. No pneumothorax. 2. Right basilar opacity with partial obscuration of the hemidiaphragm as above. - Dictated By: Dilma Suero M.D. Electronically Signed By: Dilma Suero M.D. Date Signed: 08/16/08 Procedure Note Dilma Suero MD - 08/16/2008 A single view of the chest is submitted. The heart size is normal. Prominent density is noted in the right lungbase partially obscuring the hemidiaphragm and this may represent partial volume loss or infiltrate.There is no pneumothorax on this expiratory film. The left lung is clear. Impression: 1. No pneumothorax. 2. Right basilar opacity with partial obscuration of the hemidiaphragm asabove. - Dictated By: Dilma Suero M.D. Electronically Signed By: Dilma Suero M.D. Date Signed: 08/16/08 us Christiano Ramírez MD DIAGNOSTIC IMAGING ORDERABLES F inal Result * US GUIDED ASPIRATION (08/16/2008 12:59 PM GENERAL INTERNAL MEDICINE PHYSICIAN) Anatomical Region Laterality Modality Other 08/16/2008 12:5 9 PM GENERAL INTERNAL MEDICINE PHYSICIAN Narrative 08/16/2008 1:16 PM GENERAL INTERNAL MEDICINE PHYSICIAN ULTRASOUND GUIDED PARACENTESIS: Date: 08/16/2008 Brief History: This is a patient referred from Dr. Christiano Ramírez with history of hepatitis C with cirrhosis and recurrent ascites with new onset of right pleural effusion. Consent: Following detailed discussion in regards to [...] the insertion of a 7 cm 18-gauge LinkStorm centesis catheter, through which approximately 5,000 ML of a clear yellow fluid was then drained via vacuum bottles. The centesis catheter was removed in its entirety, the Betadine cleansed from the skin, and a sterile dressing placed. The patient was then transferred to the angio recovery area for a brief observation period in stable and comfortable condition, having tolerated the procedure well. ULTRASOUND-GUIDED RIGHT THORACENTESIS. The patient was placed in a sitting position on the edge of the exam table, and ultrasound was utilized to evaluate the right thorax for largest pocket of free fluid. The area was marked, prepped, and draped in the usual sterile fashion, and local anesthesia was achieved with 1% lidocaine overlying the proposed needle course. A small stab incision was made with an 11 blade followed with the insertion of a 7 cm 18-gauge Yueh centesis catheter through which approximately 1650 mL of a clear yellow fluid was then removed the vacuum bottles. The centesis catheter was removed in its entirety, the Betadine cleansed from the skin, and a sterile dressing placed. The patient was then transported to the radiology department for an expiratory chest film in stable and comfortable condition, having tolerated the procedure well. - Dictated By: Jakub Whiteside Electronically Signed By: Blaise Correia MD Date Signed: 08/22/08 [facility] Procedure Note Provider, Historical - 08/22/2008 ULTRASOUND GUIDED PARACENTESIS: Date: 08/16/2008 Brief History: This is a patient referred from Dr. Christiano Ramírez withhistory of hepatitis C with cirrhosis and recurrent ascites with new onset of right pleuraleffusion. Consent: Following detailed discussion in regards to [...] 18-gauge Yueh centesis catheter,through which approximately 5,000 ML of a clear yellow fluid was then drained via vacuum bottles. Thecentesis catheter was removed in its entirety, the Betadine cleansed from the skin, and a sterile dressingplaced. The patient was then transferred to the angio recovery area for a brief observation period instable and comfortable condition, having tolerated the procedure well. ULTRASOUND-GUIDED RIGHT THORACENTESIS. The patient was placed in a sitting position on the edge of the examtable, and ultrasound was utilized to evaluate the right thorax for largest pocket of free fluid. The areawas marked, prepped, and draped in the usual sterile fashion, and local anesthesia was achieved with 1%lidocaine overlying the proposed needle course. A small stab incision was made with an 11 blade followedwith the insertion of a 7 cm 18-gauge Yueh centesis catheter through which approximately 1650 mL of aclear yellow fluid was then removed the vacuum bottles. The centesis catheter was removed in itsentirety, the Betadine cleansed from the skin, and a sterile dressing placed. The patient was then transportedto the radiology department for an expiratory chest film in stable and comfortable condition, havingtolerated the procedure well. - Dictated By: Jakub Whiteside Electronically Signed By: Masood SHOEMAKER J MarkMD Date Signed: 08/22/08 [facility] us Christiano Ramírez MD US ORDERABLES Final Result * PATHOLOGY (08/16/2008 12:10 PM GENERAL INTERNAL MEDICINE PHYSICIAN) PATHOLOGY/CYT OLOGY REPORT [facility] Anatomic Pathology Dept [address] [place] [phone] Patient: UMM WRIGHT Accn No: [id number] Collected: 08/16/2008 12:10:00 PM SURGICAL PATHOLOGY FINAL REPORT Diagnosis A. Right pleural fluid, cell block - no malignant cells identified - benign mesothelial cells and inflammatory cells present. Dimple Mukherjee MD (Electronically signed by) Verified: 08/19/08 PKT/LUIS ALBERTO Clinical Information Right pleural fluid for cell block, Cytology number [id number]. Specimen Source ACell Block, RIGHT PLEURAL FLUID Microscopic Description Microscopic examination was performed. Gross Description Part A. Received fresh in a rocket tube labelled Kyle - right pleural fluid are approximately 0.5 cc of hogan translucent gelatinous material. The specimen is submitted entirely for cell block in A1. DLS/WLS INTERFACE SYSTEM 08/16/2008 12:1 0 PM GENERAL INTERNAL MEDICINE PHYSICIAN us Christiano Ramírez MD PATHOLOGY/CYTOLOGY ORDERABLES F inal Result INTERFACE SYSTEM Refer to clinic/hospital department * US GUIDED ASPIRATION (08/16/2008 12:07 PM GENERAL INTERNAL MEDICINE PHYSICIAN) Anatomical Region Laterality Modality Other 08/16/2008 12:0 7 PM GENERAL INTERNAL MEDICINE PHYSICIAN Narrative 08/22/2008 8:42 AM GENERAL INTERNAL MEDICINE PHYSICIAN ULTRASOUND GUIDED PARACENTESIS: Date: 08/16/2008 Brief History: This is a patient referred from Dr. Christiano Ramírez with history of hepatitis C with cirrhosis and recurrent ascites with new onset of right pleural effusion. Consent: Following detailed discussion in regards to [...] Yueh centesis catheter, through which approximately 5,000 ML of a clear yellow fluid was then drained via vacuum bottles. The centesis catheter was removed in its entirety, the Betadine cleansed from the skin, and a sterile dressing placed. The patient was then transferred to the angio recovery area for a brief observation period in stable and comfortable condition, having tolerated the procedure well. ULTRASOUND-GUIDED RIGHT THORACENTESIS. The patient was placed in a sitting position on the edge of the exam table, and ultrasound was utilized to evaluate the right thorax for largest pocket of free fluid. The area was marked, prepped, and draped in the usual sterile fashion, and local anesthesia was achieved with 1% lidocaine overlying the proposed needle course. A small stab incision was made with an 11 blade followed with the insertion of a 7 cm 18-gauge Yueh centesis catheter through which approximately 1650 mL of a clear yellow fluid was then removed the vacuum bottles. The centesis catheter was removed in its entirety, the Betadine cleansed from the skin, and a sterile dressing placed. The patient was then transported to the radiology department for an expiratory chest film in stable and comfortable condition, having tolerated the procedure well. - Dictated By: Jakub Whiteside Electronically Signed By: Blaise Correia MD Date Signed: 08/22/08 [facility] Procedure Note Blaise Correia MD - 08/22/2008 ULTRASOUND GUIDED PARACENTESIS: Date: 08/16/2008 Brief History: This is a patient referred from Dr. Christiano aRmírez withhistory of hepatitis C with cirrhosis and recurrent ascites with new onset of right pleuraleffusion. Consent: Following detailed discussion in regards to [...] 18-gauge Yueh centesis catheter,through which approximately 5,000 ML of a clear yellow fluid was then drained via vacuum bottles. Thecentesis catheter was removed in its entirety, the Betadine cleansed from the skin, and a sterile dressingplaced. The patient was then transferred to the angio recovery area for a brief observation period instable and comfortable condition, having tolerated the procedure well. ULTRASOUND-GUIDED RIGHT THORACENTESIS. The patient was placed in a sitting position on the edge of the examtable, and ultrasound was utilized to evaluate the right thorax for largest pocket of free fluid. The areawas marked, prepped, and draped in the usual sterile fashion, and local anesthesia was achieved with 1%lidocaine overlying the proposed needle course. A small stab incision was made with an 11 blade followedwith the insertion of a 7 cm 18-gauge Yueh centesis catheter through which approximately 1650 mL of aclear yellow fluid was then removed the vacuum bottles. The centesis catheter was removed in itsentirety, the Betadine cleansed from the skin, and a sterile dressing placed. The patient was then transportedto the radiology department for an expiratory chest film in stable and comfortable condition, havingtolerated the procedure well. - Dictated By: Jakub Whiteside Electronically Signed By: Blaise Correia MD Date Signed: 12/29/08 LJW Christiano Ramírez MD US ORDERABLES Final Result * (ABNORMAL) PT AND APTT (08/16/2008 10:36 AM GENERAL INTERNAL MEDICINE PHYSICIAN) INR 1.4 [facility] Comment: Expected Values for INR: DVT/PE Goal INR 2.5; range 2.0 - 3.0 Valve Replacement Tissue Goal INR 2.5; range 2.0 - 3.0 Mechanical Goal INR 3.0; range 2.5 - 3.5 POST-VT Goal INR 2.5; range 2.0 - 3.0 or Goal 3.0; range 2.5 - 3.5 Atrial Fibrillation Goal INR 2.5; range 2.0 - 3.0 Ischemic Stroke Goal INR 2.5; range 2.0 - 3.0 For additional information see Guidelines for Anticoagulation available from the pharmacy James Matos. [phone] PTT 35.4 22.5 - 36.5 Secs [facility] Comment: Therapeutic Range: Hi-level PE/DVT heparin protocol 80.1 -95.0 sec Lo-level PE/DVT heparin protocol 67.1 - 80.0 sec Cardiac Heparin Protocol 67.1 - 85.0 sec Neuro Heparin Protocol 67.1 - 80.0 sec As of 11/12/2007 note change in APTT Normal Range. PROTIME 18.3(H) 12.8 - 15.8 Secs [facility] Comment:As of 2007 not e change in normal range. Blood specimen (specimen) 08/16/2008 10:36 AM GENERAL INTERNAL MEDICINE PHYSICIAN 08/16/2008 10:39 AM GENERAL INTERNAL MEDICINE PHYSICIAN Christiano Ramírez MD HEMATOLOGY ORDERABLES Edited INTERFACE SYSTEM Refer to clinic/hospital department [facility] CLIA# [id number] [address] [place] [address] * (ABNORMAL) PLATELET COUNT (08/16/2008 10:36 AM GENERAL INTERNAL MEDICINE PHYSICIAN) PLATELETS 58(L) 140 - 440 K/ul [facility] Blood specimen (specimen) 08/16/2008 10:36 AM GENERAL INTERNAL MEDICINE PHYSICIAN 08/16/2008 10:39 AM GENERAL INTERNAL MEDICINE PHYSICIAN Christiano Ramírez MD HEMATOLOGY ORDERABLES Final Res ult Performing Organization Address [facility] de Phone Number INTERFACE SYSTEM Refer to clinic/hospital department [facility] CLIA# [id number] [address] [place] [address] * PATHOLOGY (08/16/2008 6:30 AM GENERAL INTERNAL MEDICINE PHYSICIAN) PATHOLOGY/CYT OLOGY REPORT [facility] Anatomic Pathology Dept [address] [place] [phone] Patient: UMM WRIGHT Accn No: [id number] Collected: 08/16/2008 6:30:00 AM CYTOLOGY NON-GYNECOLOGIC FINAL REPORT Clinical History Specimen Source: RIGHT PLEURAL FLUID Specimen Description: 1000cc of THIN CLOUDY YELLOW fluid submitted. Fluid was Submitted for Cell Block. Thin Prep Slide Preparation using selective cellular enhancement technique. Diagnosis NO MALIGNANT CELLS IDENTIFIED Cytotechologist :, PKT 08/17/08 Completed by: Dimple Mukherjee MD (Electronically signed by) 08/19/08 Additional Diagnosis Mesothelial cells and inflammatory cells present. INTERFACE SYSTEM 08/16/2008 6:30 AM GENERAL INTERNAL MEDICINE PHYSICIAN Christiano Ramírez MD PATHOLOGY/CYTOLOGY ORDERABLES F inal Result Performing Organization Address City/[facility] Co de Phone Number INTERFACE SYSTEM Refer to clinic/hospital department documented in this encounter Visit Diagnoses Diagnosis Other ascites documented in this encounter Care Teams Road Oiler Relationship Specialty Start Date End Date Smith Martínez DO [address] [address] PCP - General Internal Medicine 08/06/18 documented as of this encounter
--- OUTSIDE RECORDS SUMMARY | 2025-04-01 12:47 | XMS_ITS | Encounter Summary ---
Author Organization [facility] Address [address] [facility] Attn: Epic [place] [address] Care Team Providers Care Eyelet Operator Name Role Phone Smith Martínez DO Primary Care Provide r Encounter Details Date Type Department Care Team (Late st Contact Info) Description 07/15/2005 Outpatient Historical Sloan Vickers MD [address] [place] [address] Dr Ly[address] [place] [phone] Social History Tobacco Use Types Packs/Day Years Used Date Smoking Tobacco: Never Assessed Comments Unknown Sex and Gender Information Value Date Recorded Sex Assigned at Not on file Legal Sex Female 6:13 AM EVENT LIGHTING SPECIALIST Gender Identity Not on file Sexual Orientation Not on file documented as of this encounter Plan of Treatment Not on file documented as of this encounter Procedures Procedure Name Priority Date/Time Associated Diagnosis Comments ALPHA FETOPROTEIN TUMOR MARKER Routine 07/15/2005 10:30 AM EVENT LIGHTING SPECIALIST documented in this encounter Results * ALPHA FETOPROTEIN TUMOR MARKER (07/15/2005 10:30 AM EVENT LIGHTING SPECIALIST) ALPHA FETOPROTEIN MATERNAL 4.6 <=8.5 ng/mL INTERFACE SYSTEM 07/15/2005 10:3 0 AM EVENT LIGHTING SPECIALIST us Sloan Vickers MD CHEMISTRY ORDERABLES Final Result INTERFACE SYSTEM Refer to clinic/hospital department documented in this encounter Visit Diagnoses Not on filedocumented in this encounter Care Teams Eyelet Operator Relationship Specialty Start Date End Date Smith Martínez DO [address] [phone] PCP - General Internal Medicine 08/06/18 documented as of this encounter
--- OUTSIDE RECORDS SUMMARY | 2025-04-01 12:47 | XMS_ITS | Encounter Summary ---
Author Organization [facility] Address [address] [place] [address] Care Team Providers Care Canine Service Instructor Trainer Name Role Phone Smith Martínez Primary Care Provide r Encounter Details Date Type Department Care Team (Late st Contact Info) Description 07/05/2008 Outpatient Historical HIS RADIOLOGY NEUROP Christiano Ramírez MD NO ADDRESS ON FILE Other Ascites Social History Tobacco Use Types Packs/Day Years Used Date Smoking Tobacco: Never Alcohol Use Standard Drinks/Week Comments No 0 (1 standard drink = 0.6 oz pur e alcohol) Comments No Sex and Gender Information Value Date Recorded Sex Assigned at Not on file Legal Sex Female 6:13 AM JIGSAW OPERATOR Gender Identity Not on file Sexual Orientation Not on file documented as of this encounter Plan of Treatment Not on file documented as of this encounter Procedures Procedure Name Priority Date/Time Associated Diagnosis Comments US GUIDED ASPIRATION Routine 07/05/2008 1:23 PM JIGSAW OPERATOR PLATELET COUNT Stat 07/05/2008 12:27 PM JIGSAW OPERATOR PT AND APTT Stat 07/05/2008 12:22 PM JIGSAW OPERATOR documented in this encounter Results * US GUIDED ASPIRATION (07/05/2008 1:23 PM JIGSAW OPERATOR) Anatomical Region Laterality Modality Other 07/05/2008 1:23 PM JIGSAW OPERATOR Narrative 07/09/2008 5:54 PM JIGSAW OPERATOR Ultrasound Guided Paracentesis: Date: 07/05/2008. Brief History: This is a patient referred [...] By: Tommy Love M.D., Ph.D. Date Signed: 07/09/08 JAW Procedure Note Tommy Love - 07/09/2008 Ultrasound Guided Paracentesis: Date: 07/05/2008. Brief History: This is a patient referred [...] By: Tommy Love M.D., Ph.D. Date Signed: 07/09/08 JAW us Christiano Ramírez MD US ORDERABLES Final Result * (ABNORMAL) PLATELET COUNT (07/05/2008 12:27 PM JIGSAW OPERATOR) PLATELETS 65(L) 140 - 440 K/ul [facility] Blood specimen (specimen) 07/05/2008 12:27 PM JIGSAW OPERATOR 07/05/2008 12:34 PM JIGSAW OPERATOR Christiano Ramírez MD HEMATOLOGY ORDERABLES Final Res ult INTERFACE SYSTEM Refer to clinic/hospital department [facility] CLIA# [id number] [address] [place] [address] * (ABNORMAL) PT AND APTT (07/05/2008 12:22 PM JIGSAW OPERATOR) PROTIME 18.0(H) 12.8 - 15.8 Secs [facility] Comment:As of 2007 not e change in normal range. PTT 30.2 22.5 - 36.5 Secs [facility] Comment: Therapeutic Range: Hi-level PE/DVT heparin protocol 80.1 -95.0 sec Lo-level PE/DVT heparin protocol 67.1 - 80.0 sec Cardiac Heparin Protocol 67.1 - 85.0 sec Neuro Heparin Protocol 67.1 - 80.0 sec As of 11/12/2007 note change in APTT Normal Range. INR 1.3 [facility] Comment: Expected Values for INR: DVT/PE Goal INR 2.5; range 2.0 - 3.0 Valve Replacement Tissue Goal INR 2.5; range 2.0 - 3.0 Mechanical Goal INR 3.0; range 2.5 - 3.5 POST-DC Goal INR 2.5; range 2.0 - 3.0 or Goal 3.0; range 2.5 - 3.5 Atrial Fibrillation Goal INR 2.5; range 2.0 - 3.0 Ischemic Stroke Goal INR 2.5; range 2.0 - 3.0 For additional information see Guidelines for Anticoagulation available from the pharmacy Lucy Rangel, James D. [phone] Blood specimen (specimen) 07/05/2008 12:22 PM JIGSAW OPERATOR 07/05/2008 12:34 PM JIGSAW OPERATOR us Christiano Ramírez MD HEMATOLOGY ORDERABLES Edited INTERFACE SYSTEM Refer to clinic/hospital department [facility] CLIA# [id number] [address] [place] [address] documented in this encounter Visit Diagnoses Diagnosis Other ascites documented in this encounter Care Teams Canine Service Instructor Trainer Relationship Specialty Start Date End Date Smith Martínez DO [address] [phone] PCP - General Internal Medicine 08/06/18 documented as of this encounter
--- OUTSIDE RECORDS SUMMARY | 2025-04-01 12:47 | XMS_ITS | Encounter Summary ---
Author Organization [facility] Address [address] [place] [address] Care Team Providers Care Clinical Rn Liaison Name Role Phone Smith Martínez Primary Care Provide r Reason for Referral * Outpatient Services (Routine) - Closed Specialty Diagnoses / Procedures Referred By Alfredo smith Referred To Contact Diagnoses Encounter for screening for malignant neoplasm of breast Procedures MAMMO SCRN BILAT 3D CLAUDETTE W OR WO CAD MAMMO SCREEN BILAT W OR WO CAD Ligia Parra NP [address] [address] Phone: tel: fax: Referral ID Status Reason Start Date Expiration Date Visits Re quested Visits Authorized [id number] Closed 11/28/2017 12/29/2018 1 1 Encounter Details Date Type Department Care Team (Late st Contact Info) Description 11/28/2017 Ancillary Orders [facility] Pre-Registration [place] CALL TO MAKE APPOINTMENT ONLY [address] [place] [address] Ligia Parra GROUNDS PERSON [address] [address] Encounter for screening for malignant neoplasm of breast Social History Tobacco Use Types Packs/Day Years Used Date Smoking Tobacco: Never Smokeless Tobacco: Never Alcohol Use Standard Drinks/Week Comments No 0 (1 standard drink = 0.6 oz pur e alcohol) Comments No Sex and Gender Information Value Date Recorded Sex Assigned at Not on file Legal Sex Female 6:13 AM COMPENSATION ANALYST Gender Identity Not on file Sexual Orientation Not on file Occupation Industry Job Start Date Job End Date Not on file Not on file Not on file Not on file documented as of this encounter Plan of Treatment Not on file documented as of this encounter Results * MAMMO SCRN BILAT 3D CLAUDETTE W OR WO CAD (01/27/2018 12:21 PM CDT) Anatomical Region Laterality Modality Breast Bilateral Mammography Narrative 01/28/2018 1:50 PM CDT Bilateral Mammogram Reason for Exam: Screening Comparison: Compared to: 12/23/2016 MAMMO SCREEN BILAT W OR WO CAD, 12/07/2015 MAMMO DIGITAL SCREEN BILAT, 06/15/2014 MAMMO DIGITAL SCREEN BILAT, 05/07/2013 MAMMO DIGITAL SCREEN BILAT, and 04/16/2012 MAMMO DIGITAL SCREEN BILAT Technique: 3D MLO [...] findings since the prior mammogram(s). Ligia Parra GROUNDS PERSON MAMMO ORDERABLES Final Result documented in this encounter Visit Diagnoses Diagnosis Encounter for screening for malignant neoplasm of breast Encounter for screening for malignant neoplasm of breast documented in this encounter Care Teams Clinical Rn Liaison Relationship Specialty Start Date End Date Smith Martínez DO [address] [address] PCP - General Internal Medicine 08/06/18 documented as of this encounter
--- OUTSIDE RECORDS SUMMARY | 2025-04-01 12:47 | XMS_ITS | Encounter Summary ---
Author Organization [facility] Address [address] [place] [address] Care Team Providers Care Switch Repairer Name Role Phone Smith Martínez DO Primary Care Provide r Encounter Details Date Type Department Care Team (Latest Contact Info) Description 12/20/[address] [facility] Endoscopy [address] [place] [address] Sloan Vickers MD [facility] Four [facility] [address] [place] [address] Other Follow-Up Examination (Primary Dx) Social History Tobacco Use Types Packs/Day Years Used Date Smoking Tobacco: Never Assessed Comments Unknown Sex and Gender Information Value Date Recorded Sex Assigned at Not on file Legal Sex Female 6:13 AM ENDO TECH Gender Identity Not on file Sexual Orientation Not on file documented as of this encounter Plan of Treatment Not on file documented as of this encounter Visit Diagnoses Diagnosis Other follow-up examination(V67.59)- Primary Other follow-up examination documented in this encounter Care Teams Switch Repairer Relationship Specialty Start Date End Date Smith Martínez DO [address] [facility] 1 [place] [address] PCP - General Internal Medicine 08/06/18 documented as of this encounter
--- OUTSIDE RECORDS SUMMARY | 2025-04-01 12:47 | XMS_ITS | Encounter Summary ---
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); Unspecified Essential Hypertension; Unspecified Viral Hepatitis C without Hepatic Coma; Immune Thrombocytopenic Purpura (CMS/HCC) Social History Tobacco Use Types Packs/Day Years Used Date Smoking Tobacco: Never Alcohol Use Standard Drinks/Week Comments No 0 (1 standard drink = 0.6 oz pur e alcohol) Comments No Sex and Gender Information Value Date Recorded Sex Assigned at Not on file Legal Sex Female 6:13 AM POLICY ADVISOR Gender Identity Not on file Sexual Orientation Not on file documented as of this encounter Plan of Treatment Not on file documented as of this encounter Visit Diagnoses Diagnosis Cirrhosis of liver without mention of alcohol (CMS/HCC) Cirrhosis of liver without mention of alcohol Unspecified essential hypertension Unspecified viral hepatitis C without hepatic coma 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
--- OUTSIDE RECORDS SUMMARY | 2025-04-01 12:47 | XMS_ITS | Encounter Summary ---
Author Organization [facility] Address [address] [place] [address] Care Team Providers Care Tightener Name Role Phone Smith Martínez DO Primary Care Provide r Encounter Details Date Type Department Care Team (Latest Contact Info) Description 09/20/2004 Outpatient Historical [facility] Sherrie Allen FNP NO ADDRESS ON FILE HEPATITIS C W/O HEPATIC COMA NOS (Primary Dx) Social History Tobacco Use Types Packs/Day Years Used Date Smoking Tobacco: Never Assessed Comments Unknown Sex and Gender Information Value Date Recorded Sex Assigned at Not on file Legal Sex Female 6:13 AM MARRIAGE AND FAMILY TEACHER Gender Identity Not on file Sexual Orientation Not on file documented as of this encounter Plan of Treatment Not on file documented as of this encounter Visit Diagnoses Diagnosis Unspecified viral hepatitis C without hepatic coma- Primary documented in this encounter Care Teams Tightener Relationship Specialty Start Date End Date Smith Martínez DO [address] [place] [address] PCP - General Internal Medicine 08/06/18 documented as of this encounter
--- OUTSIDE RECORDS SUMMARY | 2025-04-01 12:47 | XMS_ITS | Encounter Summary ---
Author Organization [facility] Address [address] [place] [address] Care Team Providers Care Butcher Meat Name Role Phone Smith Martínez DO Primary Care Provide r Encounter Details Date Type Department Care Team (Latest Contact Info) Description 09/05/2004 Outpatient Historical [facility] Sherrie Allen FNP NO ADDRESS ON FILE VIR HEP NEC W/O COMA W HEP C CHRON (CMS/HCC) (Primary Dx) Social History Tobacco Use Types Packs/Day Years Used Date Smoking Tobacco: Never Assessed Comments Unknown Sex and Gender Information Value Date Recorded Sex Assigned at Not on file Legal Sex Female 6:13 AM CEMENT CUTTER Gender Identity Not on file Sexual Orientation Not on file documented as of this encounter Plan of Treatment Not on file documented as of this encounter Visit Diagnoses Diagnosis Chronic hepatitis C without mention of hepatic coma (CMS/HCC)- Primary Chronic hepatitis C without mention of hepatic coma documented in this encounter Care Teams Butcher Meat Relationship Specialty Start Date End Date Smith Martínez DO [address] [place] [address] PCP - General Internal Medicine 08/06/18 documented as of this encounter
--- OUTSIDE RECORDS SUMMARY | 2025-04-01 12:47 | XMS_ITS | Encounter Summary ---
Author Organization [facility] Address [address] [place] [address] Care Team Providers Care Picker Feeder Name Role Phone Smith Martínez DO Primary Care Provide r Encounter Details Date Type Department Care Team (Latest Contact Info) Description 11/12/2004 Outpatient [facility] Gastroenterology- [place] [id number] [facility] [address] [place] [address] Sloan Vickers MD [facility] Four [facility] [address] [place] [address] AGRANULOCYTOSIS (Primary Dx); ANEMIA NOS; VIR HEP NEC W/O COMA W HEP C CHRON (CMS/HCC); CIRRHOSIS OF LIVER NOS (CMS/HCC) Social History Tobacco Use Types Packs/Day Years Used Date Smoking Tobacco: Never Assessed Comments Unknown Sex and Gender Information Value Date Recorded Sex Assigned at Not on file Legal Sex Female 6:13 AM HAND MOLDER AND CASTER Gender Identity Not on file Sexual Orientation Not on file documented as of this encounter Plan of Treatment Not on file documented as of this encounter Visit Diagnoses Diagnosis Neutropenia- Primary Anemia, unspecified Chronic hepatitis C without mention of hepatic coma (CMS/HCC) Chronic hepatitis C without mention of hepatic coma Cirrhosis of liver without mention of alcohol (CMS/HCC) Cirrhosis of liver without mention of alcohol documented in this encounter Care Teams Picker Feeder Relationship Specialty Start Date End Date Smith Martínez DO [address] [facility] 1 [place] [address] PCP - General Internal Medicine 08/06/18 documented as of this encounter
--- OUTSIDE RECORDS SUMMARY | 2025-04-01 12:47 | XMS_ITS | Encounter Summary ---
Author Organization [facility] Address [address] [place] [address] Care Team Providers Care Tactical Debriefer Officer Name Role Phone Smith Martínez DO Primary Care Provide r Encounter Details Date Type Department Care Team (Latest Contact Info) Description 10/01/[address] [facility] [address] [place] [address] Aristides Herzog MD NO ADDRESS ON FILE Lichen Planus (Primary Dx) Social History Tobacco Use Types Packs/Day Years Used Date Smoking Tobacco: Never Assessed Comments Unknown Sex and Gender Information Value Date Recorded Sex Assigned at Not on file Legal Sex Female 6:13 AM SET UP / OPERATOR Gender Identity Not on file Sexual Orientation Not on file documented as of this encounter Plan of Treatment Not on file documented as of this encounter Visit Diagnoses Diagnosis Lichen planus- Primary documented in this encounter Care Teams Tactical Debriefer Officer Relationship Specialty Start Date End Date Smith Martínez DO [address] [place] [address] PCP - General Internal Medicine 08/06/18 documented as of this encounter
--- OUTSIDE RECORDS SUMMARY | 2025-04-01 12:47 | XMS_ITS | Encounter Summary ---
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) (Primary Dx); Chronic Hepatitis C without Mention of Hepatic Coma (CMS/HCC) Social History Tobacco Use Types Packs/Day Years Used Date Smoking Tobacco: Never Assessed Comments Unknown Sex and Gender Information Value Date Recorded Sex Assigned at Not on file Legal Sex Female 6:13 AM HUMAN RESOURCES ANALYST Gender Identity Not on file Sexual [...] coma documented in this encounter Care Teams [employer] Assistant Manager Relationship Specialty Start Date End Date Smith Martínez DO [address] [place] [address] PCP - General Internal Medicine 08/06/18 documented as of this encounter
--- OUTSIDE RECORDS SUMMARY | 2025-04-01 12:47 | XMS_ITS | Encounter Summary ---
Author Organization [facility] Address [address] [place] [address] Care Team Providers Care Trick Rodeo Rider Name Role Phone Smith Martínez DO Primary Care Provide r Encounter Details Date Type Department Care Team (Latest Contact Info) Description 10/17/2006 Outpatient [facility] Dermatology- [place] [address] [place] [address] Aristides Herzog MD NO ADDRESS ON FILE Lichen Planus (Primary Dx) Social History Tobacco Use Types Packs/Day Years Used Date Smoking Tobacco: Never Assessed Comments Unknown Sex and Gender Information Value Date Recorded Sex Assigned at Not on file Legal Sex Female 6:13 AM WILD LIFE PHOTOGRAPHER Gender Identity Not on file Sexual Orientation Not on file documented as of this encounter Plan of Treatment Not on file documented as of this encounter Visit Diagnoses Diagnosis Lichen planus- Primary documented in this encounter Care Teams Trick Rodeo Rider Relationship Specialty Start Date End Date Smith Martínez DO [address] [place] [address] PCP - General Internal Medicine 08/06/18 documented as of this encounter
--- OUTSIDE RECORDS SUMMARY | 2025-04-01 12:47 | XMS_ITS | Encounter Summary ---
Author Organization [facility] Address [address] [place] [address] Care Team Providers Care Power Plant Operations Manager Name Role Phone Smith Martínez DO Primary Care Provide r Encounter Details Date Type Department Care Team (Late st Contact Info) Description 08/15/2005 Outpatient Historical [facility] Imaging Services-[facility] [place] [address] [place] [address] Sloan Vickers MD [facility] Four [facility] [address] [place] [address] Social History Tobacco Use Types Packs/Day Years Used Date Smoking Tobacco: Never Assessed Comments Unknown Sex and Gender Information Value Date Recorded Sex Assigned at Not on file Legal Sex Female 6:13 AM QA CONSULTANT Gender Identity Not on file Sexual Orientation Not on file documented as of this encounter Plan of Treatment Not on file documented as of this encounter Visit Diagnoses Not on filedocumented in this encounter Care Teams Power Plant Operations Manager Relationship Specialty Start Date End Date Smith Martínez DO [address] [place] [address] PCP - General Internal Medicine 08/06/18 documented as of this encounter
--- OUTSIDE RECORDS SUMMARY | 2025-04-01 12:47 | XMS_ITS | Encounter Summary ---
Author Organization [facility] Address [address] [place] [address] Care Team Providers Care Flume Maker Name Role Phone Smith Martínez DO Primary Care Provide r Encounter Details Date Type Department Care Team (Latest Contact Info) Description 04/16/2006 Outpatient Historical [facility] Endoscopy [address] [place] [address] Sloan Vickers MD [facility] Four [facility] [address] [place] [address] Portal Hypertension (CMS/HCC) (Primary Dx) Social History Tobacco Use Types Packs/Day Years Used Date Smoking Tobacco: Never Assessed Comments Unknown Sex and Gender Information Value Date Recorded Sex Assigned at Not on file Legal Sex Female 6:13 AM DRYING TUNNEL OPERATOR Gender Identity Not on file Sexual Orientation Not on file documented as of this encounter Plan of Treatment Not on file documented as of this encounter Visit Diagnoses Diagnosis Portal hypertension (CMS/HCC)- Primary Portal hypertension documented in this encounter Care Teams Flume Maker Relationship Specialty Start Date End Date Smith Martínez DO [address] [place] [address] PCP - General Internal Medicine 08/06/18 documented as of this encounter
--- OUTSIDE RECORDS SUMMARY | 2025-04-01 12:47 | XMS_ITS | Encounter Summary ---
Author Organization [facility] Address [address] [place] [address] Care Team Providers Care Material Handler Floorperson Name Role Phone Smith Martínez DO Primary Care Provide r Encounter Details Date Type Department Care Team (Latest Contact Info) Description 07/15/2005 Outpatient [facility] Gastroenterology[address] [place] [address] Sloan Vickers MD [address] [place] [address] [address] [place] [address] CIRRHOSIS OF LIVER NOS (CMS/HCC) (Primary Dx); VIR HEP NEC W/O COMA W HEP C CHRON (CMS/HCC) Social History Tobacco Use Types Packs/Day Years Used Date Smoking Tobacco: Never Assessed Comments Unknown Sex and Gender Information Value Date Recorded Sex Assigned at Not on file Legal Sex Female 6:13 AM NURSING INFORMATICS SPECIALIST Gender Identity Not on file Sexual [...] coma documented in this encounter Care Teams Material Handler Floorperson Relationship Specialty Start Date End Date Smith Martínez DO [address] [place] [address] PCP - General Internal Medicine 08/06/18 documented as of this encounter
--- OUTSIDE RECORDS SUMMARY | 2025-04-01 12:47 | XMS_ITS | Encounter Summary ---
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
--- OUTSIDE RECORDS SUMMARY | 2025-04-01 12:47 | XMS_ITS | Encounter Summary ---
Author Organization [facility] Address [address] [place] [address] Care Team Providers Care Canal Boat Captain Name Role Phone Smith Martínez DO Primary Care Provide r Encounter Details Date Type Department Care Team (Latest Contact Info) Description 08/15/2005 Outpatient Historical [facility] Imaging Services-[place] [address] [place] [address] Sloan Vickers MD [address] [place] [address] [address] [place] [address] VIR HEP NEC W/O COMA W HEP C CHRON (CMS/HCC) (Primary Dx) Social History Tobacco Use Types Packs/Day Years Used Date Smoking Tobacco: Never Assessed Comments Unknown Sex and Gender Information Value Date Recorded Sex Assigned at Not on file Legal Sex Female 6:13 AM PERFORMANCE TEST ARCHITECT Gender Identity Not on file Sexual Orientation Not on file documented as of this encounter Plan of Treatment Not on file documented as of this encounter Visit Diagnoses Diagnosis Chronic hepatitis C without mention of hepatic coma (CMS/HCC)- Primary Chronic hepatitis C without mention of hepatic coma documented in this encounter Care Teams Canal Boat Captain Relationship Specialty Start Date End Date Smith Martínez DO [address] [place] [address] PCP - General Internal Medicine 08/06/18 documented as of this encounter
--- OUTSIDE RECORDS SUMMARY | 2025-04-01 12:47 | XMS_ITS | Encounter Summary ---
Author Organization [facility] Address [address] [place] [address] Care Team Providers Care Oracle E Business Developer Name Role Phone Smith Martínez Primary Care Provide r Encounter Details Date Type Department Care Team (Latest Contact Info) Description 09/24/2005 Outpatient Historical [facility] Endoscopy [address] [place] [address] Sloan Vickers MD [facility] Four [facility] [address] [place] [address] GASTRITIS/DUODEN NOS W/O HEMORRH (Primary Dx) Social History Tobacco Use Types Packs/Day Years Used Date Smoking Tobacco: Never Assessed Comments Unknown Sex and Gender Information Value Date Recorded Sex Assigned at Not on file Legal Sex Female 6:13 AM RETAIL STORE ASSOCIATE Gender Identity Not on file Sexual Orientation Not on file documented as of this encounter Plan of Treatment Not on file documented as of this encounter Procedures Procedure Name Priority Date/Time Associated Diagnosis Comments DIFFERENTIAL, MANUAL Routine 09/24/2005 2:25 PM RETAIL STORE ASSOCIATE CBC WITH DIFFERENTIAL Routine 09/24/2005 2:25 PM RETAIL STORE ASSOCIATE HEPATIC FUNCTION PANEL Routine 09/24/2005 2:25 PM RETAIL STORE ASSOCIATE documented in this encounter Results * (ABNORMAL) HEPATIC FUNCTION PANEL (09/24/2005 2:25 PM RETAIL STORE ASSOCIATE) Pathologist [facility] ALKALINE PHOSPHATASE 91 38 - 126 IU/L INTERFACE SYSTEM Comment:Specimen slightly he molyzed TOTAL PROTEIN 7.3 6.3 - 8.2 g/dL INTERFACE SYSTEM ALBUMIN 3.3(L) 3.5 - 5.0 g/dL INTERFACE SYSTEM AST 54(H) 14 - 36 IU/L INTERFACE SYSTEM ALT 27 9 - 52 IU/L INTERFACE SYSTEM BILIRUBIN TOTAL 1.3 0.2 - 1.4 mg/dL INTERFACE SYSTEM BILIRUBIN DIRECT 0.4 0.0 - 0.4 mg/dL INTERFACE SYSTEM 09/24/2005 2:25 PM RETAIL STORE ASSOCIATE Historical Provider CHEMISTRY ORDERABLES Final R esult Performing Organization Address City/[facility]/ZIP Co de Phone Number INTERFACE SYSTEM Refer to clinic/hospital department * (ABNORMAL) DIFFERENTIAL, MANUAL (09/24/2005 2:25 PM RETAIL STORE ASSOCIATE) [facility] NEUTROPHILS, SEG 76(H) 36 - 66 % INT ERFACE SYSTEM BANDS 17(H) 0 - 6 % INTERFACE SYSTEM LYMPHOCYTES 4(L) 24 - 44 % INTERFAC E SYSTEM MONOCYTE 3(L) 4 - 10 % INTERFACE SYSTEM PLATELET EST. Decreased (A) Normal INTERFACE SYSTEM RBC MORPHOLOGY Abnormal( A) Normal INTERFACE SYSTEM ANISOCYTOSIS 1+(A) None Seen INTERFA CE SYSTEM POIKILOCYTES 1+(A) None Seen INTERFA CE SYSTEM POLYCHROMASIA 1+(A) None Seen INTERF OSWALDO SYSTEM SMUDGE CELLS Few(A) None Seen INTERFA CE SYSTEM GIANT PLATELETS Few(A) INTE RFACE SYSTEM 09/24/2005 2:25 PM RETAIL STORE ASSOCIATE Historical Provider HEMATOLOGY ORDERABLES COM Fi nal Result INTERFACE SYSTEM Refer to clinic/hospital department * (ABNORMAL) CBC WITH DIFFERENTIAL (09/24/2005 2:25 PM RETAIL STORE ASSOCIATE) Pathologist [facility] HEM COMMENT Smear Reviewed Automated Diff INTERFACE SYSTEM MPV -------- 8.9 - 12.8 Fl INTERFACE SYSTEM WBC 9.8 4.8 - 10.8 K/ul INTERFACE SYSTEM RBC 4.18(L) 4.20 - 5.40 Mil/ul INTERFACE SYSTEM HEMOGLOBIN 13.1 12.0 - 16.0 g/dL INTERFACE SYSTEM HEMATOCRIT 38.5 36.0 - 46.0 % INTERFACE SYSTEM MCV 92.1 84.0 - 103.0 Fl INTERFACE SYSTEM MCH 31.3 27.0 - 34.0 pg INTERFACE SYSTEM MCHC 34.0 30.0 - 35.0 g/dL INTERFACE SYSTEM RDW 18.0(H) 11.0 - 14.5 % INTERFACE SYSTEM PLATELETS 24(L) 140 - 440 K/ul INTERFACE SYSTEM NEUTROPHILS 82.9(H) 42.2 - 75.2 % INTERFACE SYSTEM LYMPHOCYTES 12.6(L) 24.0 - 44.0 % INTERFACE SYSTEM MONOCYTES 3.6 2.0 - 10.0 % INTERFA CE SYSTEM EOSINOPHILS 0.6 0.0 - 7.0 % INTERF OSWALDO SYSTEM BASOPHILS 0.3 0.0 - 1.0 % INTERFAC E SYSTEM NEUTROPHIL ABSOLUTE 8.1(H) 2.0 - 8.0 K/uL INTERFACE SYSTEM LYMPHOCYTE ABSOLUTE 1.2 1.2 - 4.0 K/ul INTERFACE SYSTEM MONOCYTE ABSOLUTE 0.4 0.1 - 0.6 K/ul INTERFACE SYSTEM EOSINOPHIL ABSOLUTE 0.1 0.0 - 0.7 K/ul INTERFACE SYSTEM BASOPHILS ABSOLUTE 0.0 0.0 - 0.2 K/ul INTERFACE SYSTEM 09/24/2005 2:25 PM RETAIL STORE ASSOCIATE us Historical Provider HEMATOLOGY ORDERABLES Final Result INTERFACE SYSTEM Refer to clinic/hospital department documented in this encounter Visit Diagnoses Diagnosis Unspecified gastritis and gastroduodenitis without mention of hemorrhage- Primary documented in this encounter Care Teams Oracle E Business Developer Relationship Specialty Start Date End Date Smith Martínez DO [address] [phone] PCP - General Internal Medicine 08/06/18 documented as of this encounter
--- OUTSIDE RECORDS SUMMARY | 2025-04-01 12:47 | XMS_ITS | Encounter Summary ---
Author Organization [facility] Address [address] [place] [address] Care Team Providers Care Supervisor Webbing Name Role Phone Smith Martínez DO Primary Care Provide r Encounter Details Date Type Department Care Team (Latest Contact Info) Description 12/23/2003 Outpatient Historical [facility] Nursing Services [place] [address] [place] [address] Jakub eBrry MD NO ADDRESS ON FILE APLASTIC ANEMIAS NEC (Primary Dx) Social History Tobacco Use Types Packs/Day Years Used Date Smoking Tobacco: Never Assessed Comments Unknown Sex and Gender Information Value Date Recorded Sex Assigned at Not on file Legal Sex Female 6:13 AM GRASSROOTS ORGANIZER Gender Identity Not on file Sexual Orientation Not on file documented as of this encounter Plan of Treatment Not on file documented as of this encounter Visit Diagnoses Diagnosis Other specified aplastic anemias- Primary documented in this encounter Care Teams Supervisor Webbing Relationship Specialty Start Date End Date Smith Martínez DO [address] [place] [address] PCP - General Internal Medicine 08/06/18 documented as of this encounter
--- OUTSIDE RECORDS SUMMARY | 2025-04-01 12:47 | XMS_ITS | Encounter Summary ---
Author Organization [facility] Address [address] [place] [address] Care Team Providers Care Mason Tender Name Role Phone Smith Martínez DO Primary Care Provide r Encounter Details Date Type Department Care Team (Latest Contact Info) Description 10/11/2004 Outpatient Historical [facility] Sherrie Allen FNP NO ADDRESS ON FILE VIR HEP NEC W/O COMA W HEP C CHRON (CMS/HCC) (Primary Dx) Social History Tobacco Use Types Packs/Day Years Used Date Smoking Tobacco: Never Assessed Comments Unknown Sex and Gender Information Value Date Recorded Sex Assigned at Not on file Legal Sex Female 6:13 AM SENIOR ELECTRICAL DESIGNER Gender Identity Not on file Sexual Orientation Not on file documented as of this encounter Plan of Treatment Not on file documented as of this encounter Visit Diagnoses Diagnosis Chronic hepatitis C without mention of hepatic coma (CMS/HCC)- Primary Chronic hepatitis C without mention of hepatic coma documented in this encounter Care Teams Mason Tender Relationship Specialty Start Date End Date Smith Martínez DO [address] [place] [address] PCP - General Internal Medicine 08/06/18 documented as of this encounter
--- OUTSIDE RECORDS SUMMARY | 2025-04-01 12:47 | XMS_ITS | Encounter Summary ---
Author Organization [facility] Address [address] [place] [address] Care Team Providers Care Electromechanisms Design Drafter Name Role Phone Smith Martínez DO Primary Care Provide r Encounter Details Date Type Department Care Team (Latest Contact Info) Description 09/10/2004 Outpatient Historical [facility] Endoscopy Jelena [address] [place] [id number] Nilton Samaniego MD [address] [facility] [address] [place] [address] ESOPH VARICES W/O BLEED (CMS/HCC) (Primary Dx) Social History Tobacco Use Types Packs/Day Years Used Date Smoking Tobacco: Never Assessed Comments Unknown Sex and Gender Information Value Date Recorded Sex Assigned at Not on file Legal Sex Female 6:13 AM LEAD CUSTODIAN Gender Identity Not on file Sexual Orientation Not on file documented as of this encounter Plan of Treatment Not on file documented as of this encounter Visit Diagnoses Diagnosis Esophageal varices without mention of bleeding (CMS/HCC)- Primary Esophageal varices without mention of bleeding documented in this encounter Care Teams Electromechanisms Design Drafter Relationship Specialty Start Date End Date Smith Martínez DO [address] [place] [address] PCP - General Internal Medicine 08/06/18 documented as of this encounter
--- OUTSIDE RECORDS SUMMARY | 2025-04-01 12:47 | XMS_ITS | Encounter Summary ---
Author Organization [facility] Address [address] [place] [address] Care Team Providers Care Fashion Marketer Name Role Phone Smith Martínez DO Primary Care Provide r Encounter Details Date Type Department Care Team (Latest Contact Info) Description 09/10/2004 Outpatient [facility] Gastroenter[facility] [place] [address] Nilton Samaniego MD [address] [facility] [address] [place] [address] ESOPH VARICES W/O BLEED (CMS/HCC) (Primary Dx); CIRRHOSIS OF LIVER NOS (CMS/HCC) Social History Tobacco Use Types Packs/Day Years Used Date Smoking Tobacco: Never Assessed Comments Unknown Sex and Gender Information Value Date Recorded Sex Assigned at Not on file Legal 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 Gender Identity Not on file Sexual Orientation Not on file documented as of this encounter Plan of Treatment Not on file documented as of this encounter Visit Diagnoses Diagnosis Esophageal varices without mention of bleeding (CMS/HCC)- Primary Esophageal varices without mention of bleeding 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
--- OUTSIDE RECORDS SUMMARY | 2025-04-01 12:47 | XMS_ITS | Encounter Summary ---
Author Organization [facility] Address [address] [place] [address] Care Team Providers Care Hand Outside Cutter Name Role Phone Smith Martínez DO Primary Care Provide r Encounter Details Date Type Department Care Team (Latest Contact Info) Description 11/22/2004 Outpatient Historical [facility] Sherrie Allen FNP NO ADDRESS ON FILE VIR HEP NEC W/O COMA W HEP C CHRON (CMS/HCC) (Primary Dx) Social History Tobacco Use Types Packs/Day Years Used Date Smoking Tobacco: Never Assessed Comments Unknown Sex and Gender Information Value Date Recorded Sex Assigned at Not on file Legal Sex Female 6:13 AM FNP Gender Identity Not on file Sexual Orientation Not on file documented as of this encounter Plan of Treatment Not on file documented as of this encounter Visit Diagnoses Diagnosis Chronic hepatitis C without mention of hepatic coma (CMS/HCC)- Primary Chronic hepatitis C without mention of hepatic coma documented in this encounter Care Teams Hand Outside Cutter Relationship Specialty Start Date End Date Smith Martínez DO [address] [place] [address] PCP - General Internal Medicine 08/06/18 documented as of this encounter
--- OUTSIDE RECORDS SUMMARY | 2025-04-01 12:48 | XMS_ITS | Encounter Summary ---
Author Organization [facility] Address [address] [place] [address] Care Team Providers Care Fish Stringer Assembler Name Role Phone Smith Martínez DO Primary Care Provide r Encounter Details Date Type Department Care Team (Late st Contact Info) Description 08/27/2008 Outpatient Historical HIS IN BED Ed, Physician NO ADDRESS ON FILE Loki Wesley MD [address] [place] [address] Christiano Ramírez MD NO ADDRESS ON FILE Abdominal Pain, Unspecified Site Social History Tobacco Use Types Packs/Day Years Used Date Smoking Tobacco: Never Alcohol Use Standard Drinks/Week Comments No 0 (1 standard drink = 0.6 oz pur e alcohol) Comments No Sex and Gender Information Value Date Recorded Sex Assigned at Not on file Legal Sex Female 6:13 AM BILINGUAL CALL CENTER REPRESENTATIVE Gender Identity Not on file Sexual Orientation Not on file documented as of this encounter Plan of Treatment Not on file documented as of this encounter Procedures Procedure Name Priority Date/Time Associated Diagnosis Comments BASIC METABOLIC PANEL Stat 08/29/2008 9:40 AM BILINGUAL CALL CENTER REPRESENTATIVE C. DIFFICILE DETECTION Routine 9:32 PM BILINGUAL CALL CENTER REPRESENTATIVE STOOL CULTURE W/SHIGA TOXIN Routine 08/28/2008 9:32 PM BILINGUAL CALL CENTER REPRESENTATIVE BASIC METABOLIC PANEL Routine 08/28/2008 3:56 AM BILINGUAL CALL CENTER REPRESENTATIVE BODY FLUID CULTURE WITH GRAM STAIN Stat 08/27/2008 8:40 PM BILINGUAL CALL CENTER REPRESENTATIVE CELL COUNT WITH DIFFERENTIAL, BODY FLUID Stat 08/27/2008 8:31 PM BILINGUAL CALL CENTER REPRESENTATIVE URINALYSIS MICROSCOPY ONLY Stat 08/27/2008 6:50 PM BILINGUAL CALL CENTER REPRESENTATIVE URINALYSIS W/REFLEX MICROSCOPIC Stat 08/27/2008 6:50 [address] BILINGUAL CALL CENTER REPRESENTATIVE CT ABDOMEN PELVIS WO CONTRAST Routine 08/27/2008 6:39 PM BILINGUAL CALL CENTER REPRESENTATIVE US RIGHT UPR QUADRANT Routine 08/27/2008 4:41 PM BILINGUAL CALL CENTER REPRESENTATIVE XR CHEST PA AND LATERAL 2 VW Routine 08/27/2008 3:11 PM BILINGUAL CALL CENTER REPRESENTATIVE CBC WITH DIFFERENTIAL Stat 08/27/2008 2:18 PM BILINGUAL CALL CENTER REPRESENTATIVE COMPREHENSIVE METABOLIC PANEL Stat 08/27/2008 2:18 PM BILINGUAL CALL CENTER REPRESENTATIVE PT AND APTT Stat 08/27/2008 2:05 PM BILINGUAL CALL CENTER REPRESENTATIVE LIPASE Stat 08/27/2008 2:05 PM BILINGUAL CALL CENTER REPRESENTATIVE AMYLASE Stat 08/27/2008 2:05 PM BILINGUAL CALL CENTER REPRESENTATIVE documented in this encounter Results * (ABNORMAL) BASIC METABOLIC PANEL (08/29/2008 9:40 AM BILINGUAL CALL CENTER REPRESENTATIVE) CREATININE 4.2(H) 0.7 - 1.2 mg/dL [facility] CALCIUM 8.6 8.4 - 10.5 mg/dL [facility] GLUCOSE 174(H) 70 - 110 mg/dL [facility] CHLORIDE 101 95 - 110 mEq/L [facility] ANION GAP 12 9 - 20 mEq/L [facility] SODIUM 123(AA) 136 - 145 mEq/L [facility] Comment: Potentially critical/toxic NA called by kristin to carlos, with verbal read back, at 08/29/08 10:20. BUN 89(H) 7 - 17 mg/dL [facility] CO2 15(L) 22 - 32 mmol/l [facility] POTASSIUM 4.6 3.5 - 5.0 mEq/L [facility] OSMOLALITY, CALCULATED 289 275 - 295 mOsm/Kg [facility] Blood specimen (specimen) 08/29/2008 9:40 AM BILINGUAL CALL CENTER REPRESENTATIVE 08/29/2008 9:48 AM BILINGUAL CALL CENTER REPRESENTATIVE Christiano Ramírez MD CHEMISTRY ORDERABLES Final Resu lt Performing Organization Address [facility] de Phone Number INTERFACE SYSTEM Refer to clinic/hospital department [facility] CLIA# [id number] [address] [place] [address] * STOOL CULTURE (08/28/2008 9:32 PM BILINGUAL CALL CENTER REPRESENTATIVE) FINAL REPORT Negative for Salmonella/Sh igella/Vibrio / Campylobacter /E. coli 0157:H7 (Note: If Yersinia culture or Shiga toxin testing for E.coli indicated, these require special orders and additional samples be submitted.) -------- No gram negative sofie present INTERFACE SYSTEM 08/28/2008 9:32 PM BILINGUAL CALL CENTER REPRESENTATIVE 08/28/2008 10:02 PM BILINGUAL CALL CENTER REPRESENTATIVE Christiano Ramírez MD MICROBIOLOGY - GENERAL ORDERABL ES Final Result Performing Organization Address [facility]/ZIP Co de Phone Number INTERFACE SYSTEM Refer to clinic/hospital department * CLOSTRIDIUM DIFFICILE TOXIN (08/28/2008 9:32 PM BILINGUAL CALL CENTER REPRESENTATIVE) C DIFFICILE TOXIN Negative Negative [facility] 08/28/2008 9:32 PM BILINGUAL CALL CENTER REPRESENTATIVE 08/28/2008 10:02 PM BILINGUAL CALL CENTER REPRESENTATIVE Christiano Ramírez MD MICROBIOLOGY - GENERAL ORDERABL ES Final Result Performing Organization Address [facility] de Phone Number INTERFACE SYSTEM Refer to clinic/[facility] department [facility] CLIA# [id number] [address] [place] [address] * (ABNORMAL) BASIC METABOLIC PANEL (08/28/2008 3:56 AM BILINGUAL CALL CENTER REPRESENTATIVE) [facility] POTASSIUM 4.9 3.5 - 5.0 mEq/L [facility] OSMOLALITY, CALCULATED 290 275 - 295 mOsm/Kg [facility] CREATININE 4.0(H) 0.7 - 1.2 mg/dL [facility] CALCIUM 8.0(L) 8.4 - 10.5 mg/dL [facility] GLUCOSE 109 70 - 110 mg/dL [facility] CHLORIDE 101 95 - 110 mEq/L [facility] ANION GAP 14 9 - 20 mEq/L [facility] SODIUM 125(L) 136 - 145 mEq/L [facility] BUN 90(H) 7 - 17 mg/dL [facility] CO2 15(L) 22 - 32 mmol/l [facility] Blood specimen (specimen) 08/28/2008 3:56 AM BILINGUAL CALL CENTER REPRESENTATIVE 08/28/2008 4:30 AM BILINGUAL CALL CENTER REPRESENTATIVE Christiano Ramírez MD CHEMISTRY ORDERABLES Final Resu lt Performing Organization Address [facility] de Phone Number INTERFACE SYSTEM Refer to clinic/hospital department [facility] CLIA# [id number] [address] [place] [address] * BODY FLUID CULTURE WITH GRAM STAIN (08/27/2008 8:40 PM BILINGUAL CALL CENTER REPRESENTATIVE) Pathologist [facility] GRAM STAIN No organisms observed Moderate (6-10/oil hpf) PMN WBC's observed NOTE: Specimen in heparin retrieved for direct gram stain. INTERFACE SYSTEM FINAL REPORT Isolated from broth media: Gram positive cocci Identified as: Beta Streptococcus, group B INTERFACE SYSTEM SUSCEPTIBILITY PERFORMED ON STREPTOCOCCUS GROUP B INTERFACE SYSTEM 08/27/2008 8:40 PM BILINGUAL CALL CENTER REPRESENTATIVE 08/27/2008 9:55 PM BILINGUAL CALL CENTER REPRESENTATIVE Narrative INTERFACE SYSTEM - 08/28/2008 9:27 AM BILINGUAL CALL CENTER REPRESENTATIVE ascites Organism Antibiotic Method Susceptibility Streptococcus group B CEFOTAXIME E TEST 0.06: Susceptible Streptococcus group B CLINDAMYCIN E TEST >32: Resistant Streptococcus group B ERYTHROMYCIN E TEST >32: Resistant Streptococcus group B LEVOFLOXACIN E TEST 0.5: Susceptible Streptococcus group B PENICILLIN E TEST 0.06: Susceptible Streptococcus group B VANCOMYCIN E TEST 1: Susceptible us Manuel Lyons MD MICROBIOLOGY - GENERAL ORDERAB LES Final Result Performing Organization Address [facility] Phone Number INTERFACE SYSTEM Refer to clinic/hospital department * CELL COUNT WITH DIFFERENTIAL, BODY FLUID (08/27/2008 8:31 PM BILINGUAL CALL CENTER REPRESENTATIVE) LYMPHOCYTE, FLD 9 % [facility] COLOR, FLD Yellow [facility] NEUTROPHILS, FLD 76 % [facility] SOURCE FLUID Paracentesis [facility] MONOCYTE, FLD 14 % [facility] BANDS, FLD 1 % [facility] WBC, FLD 3,387 /mm3 [facility] APPEARANCE, BODY FLUID Slightly Cloudy [facility] RBC, FLD 690 /mm3 [facility] 08/27/2008 8:31 PM BILINGUAL CALL CENTER REPRESENTATIVE 08/27/2008 9:00 PM BILINGUAL CALL CENTER REPRESENTATIVE us Loki Wesley MD BODY FLUIDS AND STOOLS Edite d Performing Organization Address [facility] de Phone Number INTERFACE SYSTEM Refer to clinic/hospital department [facility] CLIA# [id number] [address] [place] [address] * (ABNORMAL) URINALYSIS MICROSCOPY ONLY (08/27/2008 6:50 PM BILINGUAL CALL CENTER REPRESENTATIVE) HYALINE CAST 11-15(A) 0 - 2 [facility] WBC URINE 0-2 0 - 2 [facility] BACTERIA UA Few(A) None Seen [facility] RBC UA 0-2 0 - 2 [facility] Urine specimen (specimen) 08/27/2008 6:50 PM BILINGUAL CALL CENTER REPRESENTATIVE 08/27/2008 6:50 PM BILINGUAL CALL CENTER REPRESENTATIVE Narrative INTERFACE SYSTEM - 08/27/2008 7:11 PM BILINGUAL CALL CENTER REPRESENTATIVE Microscopic ordered by policy Juaquin Osman MD URINE ORDERABLES Final Result Performing Organization Address [facility] de Phone Number INTERFACE SYSTEM Refer to clinic/hospital department [facility] CLIA# [id number] [address] [place] [address] * (ABNORMAL) URINALYSIS (08/27/2008 6:50 PM BILINGUAL CALL CENTER REPRESENTATIVE) CLARITY UA Clear Clear [facility] SPECIFIC GRAVITY UA 1.020 <=1.005 [facility] GLUCOSE UA NEGATIVE NEGATIVE [facility] PH UA 5.0 5.0 - 9.0 [facility] BILIRUBIN UA NEGATIVE NEGATIVE [facility] LEUKOCYTE ESTERASE UA NEGATIVE NEGATIVE [facility] KETONES UA NEGATIVE NEGATIVE [facility] MICRO EXAM Yes(A) No [facility] COLOR UA Yellow Straw [facility] PROTEIN UA NEGATIVE NEGATIVE [facility] BLOOD UA Trace(A) NEGATIVE [facility] NITRITE UA NEGATIVE NEGATIVE [facility] UROBILINOGEN UA 0.2 0.2 [facility] Urine specimen (specimen) 08/27/2008 6:50 PM BILINGUAL CALL CENTER REPRESENTATIVE 08/27/2008 6:50 PM BILINGUAL CALL CENTER REPRESENTATIVE us Juaquin Osman MD URINE ORDERABLES Final Result Performing Organization Address [facility] Co de Phone Number INTERFACE SYSTEM Refer to clinic/hospital department [facility] CLIA# [id number] [address] [place] [address] * CT ABDOMEN PELVIS WO CONTRAST (08/27/2008 6:39 PM BILINGUAL CALL CENTER REPRESENTATIVE) Anatomical Region Laterality Modality Abdomen Other 08/27/2008 6:39 PM BILINGUAL CALL CENTER REPRESENTATIVE Narrative 08/28/2008 7:45 AM BILINGUAL CALL CENTER REPRESENTATIVE Exam: CT Abdomen, Pelvis w/o Date/Time of Exam: Aug 27, 2008 6:39:28 PM History: Small bowel obstruction/ileus. On liver or kidney transplant list. 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 Esophageal varices present. Umbilical hernia. No contrast utilized. Technique: Transaxial images were performed from the diaphragm to the pelvic floor. Axial, sagittal and coronal reformats were performed. Comparison: Prior study date 03/16/2007. Findings: Patient has extensive ascites throughout the abdomen. There is a large pleural effusion loculated on the right with compression of the right lower lobe. The cardiac silhouette is small in size. Pericardial fluid is present. Mild hyperinflation of the lung ross is present. The liver is shrunken in size. The gallbladder is surrounded with a small amount of lucency that may represent either fat or a small amount of gas. Spleen is massively enlarged. Large amount of pleural fluid is present throughout the colic gutters and through the root of the mesentery. The stomach shows air-fluid level. Duodenal bulb is shrunken and shows no focal findings. C-loop of the duodenum is unremarkable. The ligament of Treitz and proximal jejunum fill normally. Distal bowel loops of small bowel do not fill. No contrast is present in the rectum. A huge amount of fluid surrounds the uterus. The bladder is obscured by the large amount of ascites. Umbilical hernia and massive distention of the anterior abdomen is present. The sagittal and coronal images show no collapsed subluxed vertebral bodies. Marked degenerative changes in the L4-L5 disc space are present. Bony structures are demineralized. Loss of secondary trabeculae are present. Correlation with prior CT scan shows a marked interval increase in the amount of ascites. Bowel loops had a similar appearance on previous study. The splenomegaly and small size of the liver were present previously. No pleural effusion is present on previous study. Impression: Marked interval increase in amount of ascites. No point of obstruction or definite zone of transition can be identified. - Dictated By: MD Juancho St Electronically Signed By: MD Juancho StMD Date Signed: 08/28/08 [facility] Procedure Note Juancho St MD - 08/28/2008 Exam: CT Abdomen, Pelvis w/o Date/Time of Exam: Aug 27, 2008 6:39:28 PM History: Small bowel obstruction/ileus. On liver or kidney transplantlist. 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 Esophageal varices present. Umbilical hernia. No contrastutilized. Technique: Transaxial images were performed from the diaphragm to thepelvic floor. Axial, sagittal and coronal reformats were performed. Comparison: Prior study date 03/16/2007. Findings: Patient has extensive ascites throughout the abdomen. There is a largepleural effusion loculated on the right with compression of the right lower lobe. The cardiac silhouette issmall in size. Pericardial fluid is present. Mild hyperinflation of the lung ross is present. The liver is shrunken in size. The gallbladder is surrounded with a smallamount of lucency that may represent either fat or a small amount of gas. Spleen is massivelyenlarged. Large amount of pleural fluid is present throughout the colic gutters and through the root of themesentery. The stomach shows air-fluid level. Duodenal bulb is shrunken and shows nofocal findings. C-loop of the duodenum is unremarkable. The ligament of Treitz and proximal jejunum fillnormally. Distal bowel loops of small bowel do not fill. No contrast is present in the rectum. A hugeamount of fluid surrounds the uterus. The bladder is obscured by the large amount of ascites. Umbilicalhernia and massive distention of the anterior abdomen is present. The sagittal and coronal images show no collapsed subluxed vertebralbodies. Marked degenerative changes in the L4-L5 disc space are present. Bony structures are demineralized.Loss of secondary trabeculae are present. Correlation with prior CT scan shows a marked interval increase in theamount of ascites. Bowel loops had a similar appearance on previous study. The splenomegaly and small sizeof the liver were present previously. No pleural effusion is present on previous study. Impression: Marked interval increase in amount of ascites. No point ofobstruction or definite zone of transition can be identified. - Dictated By: MD Juancho St Electronically Signed By: MD Juancho StMD Date Signed: 08/28/08 [facility] Loki Wesley MD CT ORDERABLES Final Result * US RIGHT UPR QUADRANT (08/27/2008 4:41 PM BILINGUAL CALL CENTER REPRESENTATIVE) Anatomical Region Laterality Modality Abdomen Other 08/27/2008 4:41 PM BILINGUAL CALL CENTER REPRESENTATIVE Narrative 08/28/2008 7:42 AM BILINGUAL CALL CENTER REPRESENTATIVE Exam: [id number] Date/Time of Exam: Aug 27, 2008 4:41:17 PM History: Hepatitis C. Ascites. Extensive cirrhosis. Comparison: Prior ultrasound right upper quadrant date 03/16/2008. Findings: Liver again noted to be small echogenic with enlarged splenic vein, portal vein, portal thrombosis again identified. Large amounts of ascites are again noted. Gallbladder is identified with a wall thickness of 9.2 mm. The wall thickness is approximately the same as on prior study. Common bile duct is normal at 4 mm. Pancreas is mildly echogenic with irregular borders. The pancreatic duct measures 4.6 mm. The tail is obscured by gas. Right kidney is unremarkable. Right pleural effusion is again identified. Patient has multiple previous thoracenteses. Impression: Continuing changes of cirrhosis with large amounts of ascites and edematous gallbladder. No new findings from prior exam present. - Dictated By: MD Juancho St Electronically Signed By: MD Juancho StMD Date Signed: 08/28/08 [facility] Procedure Note Juancho St MD - 08/28/2008 Exam: US-[id number] Date/Time of Exam: Aug 27, 2008 4:41:17 PM History: Hepatitis C. Ascites. Extensive cirrhosis. Comparison: Prior ultrasound right upper quadrant date 03/16/2008. Findings: Liver again noted to be small echogenic with enlarged splenic vein, portalvein, portal thrombosis again identified. Large amounts of ascites are again noted. Gallbladder isidentified with a wall thickness of 9.2 mm. The wall thickness is approximately the same as on prior study.Common bile duct is normal at 4 mm. Pancreas is mildly echogenic with irregular borders. The pancreatic ductmeasures 4.6 mm. The tail is obscured by gas. Right kidney is unremarkable. Right pleural effusion isagain identified. Patient has multiple previous thoracenteses. Impression: Continuing changes of cirrhosis with large amounts of ascitesand edematous gallbladder. No new findings from prior exam present. - Dictated By: MD Juancho St Electronically Signed By: MD Juancho StWV Date Signed: 08/28/08 SDM us Loki Wesley MD ORDERABLES Final Result * XR CHEST PA AND LATERAL (08/27/2008 3:11 PM BILINGUAL CALL CENTER REPRESENTATIVE) Anatomical Region Laterality Modality Chest Other 08/27/2008 3:11 PM BILINGUAL CALL CENTER REPRESENTATIVE Narrative 08/28/2008 10:19 AM BILINGUAL CALL CENTER REPRESENTATIVE Exam: Chest - PA and Lateral Date/Time of Exam: Aug 27, 2008 3:11:27 PM History: Cough. Findings: Compared with 08/16/2008, increased opacification at the right medial lung base. Right parahilar atelectasis is present. Small right pleural effusion. Indeterminate component of subpulmonic effusion. Left lung base is clear. Tortuous thoracic aorta. Pulmonary vasculature within normal limits. Degenerative changes noted in the spine. Impression: Interval increase in pleural parenchymal abnormalities at right lung base compared with 08/16/2008. - Dictated By: Michelet Johnson M.D. Electronically Signed By: Michelet Johnson M.D. Date Signed: 08/28/08 [facility] Procedure Note Michelet Johnson MD - 08/28/2008 Exam: Chest - PA and Lateral Date/Time of Exam: Aug 27, 2008 3:11:27 PM History: Cough. Findings: Compared with 08/16/2008, increased opacification at the rightmedial lung base. Right parahilar atelectasis is present. Small right pleural effusion.Indeterminate component of subpulmonic effusion. Left lung base is clear. Tortuous thoracic aorta. Pulmonaryvasculature within normal limits. Degenerative changes noted in the spine. Impression: Interval increase in pleural parenchymal abnormalities atright lung base compared with 08/16/2008. - Dictated By: Michelet Johnson M.D. Electronically Signed By: Michelet Johnson M.D. Date Signed: 08/28/08 SDM us Loki Wesley MD DIAGNOSTIC IMAGING ORDERABLE S Final Result * (ABNORMAL) CBC WITH DIFFERENTIAL (08/27/2008 2:18 PM BILINGUAL CALL CENTER REPRESENTATIVE) LYMPHOCYTES 5.8(L) 24.0 - 44.0 % [facility] MCHC 35.0 30.0 - 35.0 g/dL [facility] LYMPHOCYTE ABSOLUTE 0.5(L) 1.2 - 4.0 K/ul [facility] MCV 83.0(L) 84.0 - 103.0 Fl [facility] MPV 10.2 8.9 - 12.8 Fl [facility] BASOPHILS ABSOLUTE 0.0 0.0 - 0.2 K/ul [facility] BASOPHILS 0.1 0.0 - 1.0 % [facility] HEMOGLOBIN 10.4(L) 12.0 - 16.0 g/dL [facility] RDW 15.2(H) 11.0 - 14.5 % [facility] MONOCYTE ABSOLUTE 0.7(H) 0.1 - 0.6 K/ul [facility] MONOCYTES 7.7 2.0 - 10.0 % [facility] WBC 9.3 4.8 - 10.8 K/ul [facility] MCH 29.1 27.0 - 34.0 pg [facility] NEUTROPHIL ABSOLUTE 8.0 2.0 - 8.0 K/ul [facility] NEUTROPHILS 86.1(H) 42.2 - 75.2 % [facility] HEMATOCRIT 29.7(L) 36.0 - 46.0 % [facility] EOSINOPHILS 0.3 0.0 - 7.0 % [facility] PLATELETS 80(L) 140 - 440 K/ul [facility] PERIPHERAL BLOOD SMEAR REVIEW Automated Diff [facility] EOSINOPHIL ABSOLUTE 0.0 0.0 - 0.7 K/ul [facility] RBC 3.58(L) 4.20 - 5.40 Mil/ul [facility] Blood specimen (specimen) 08/27/2008 2:18 PM BILINGUAL CALL CENTER REPRESENTATIVE 08/27/2008 2:27 PM BILINGUAL CALL CENTER REPRESENTATIVE us Physician Sj Ed HEMATOLOGY ORDERABLES Final Resu lt INTERFACE SYSTEM Refer to clinic/hospital department [facility] CLIA# [id number] [address] [place] [address] * (ABNORMAL) COMPREHENSIVE METABOLIC PANEL (08/27/2008 2:18 PM BILINGUAL CALL CENTER REPRESENTATIVE) ALKALINE PHOSPHATASE 73 25 - 100 U/L [facility] CREATININE 4.3(H) 0.7 - 1.2 mg/dL [facility] ALBUMIN/GLOBULIN RATIO 1.2 1.0 - 2.3 [facility] TOTAL PROTEIN 6.3 6.3 - 8.2 g/dL [facility] POTASSIUM 5.0 3.5 - 5.0 mEq/L [facility] GLUCOSE 104 70 - 110 mg/dL [facility] OSMOLALITY, CALCULATED 301(H) 275 - 295 mOsm/Kg [facility] BILIRUBIN TOTAL 1.5(H) 0.3 - 1.2 mg/dL [facility] CO2 15(L) 22 - 32 mmol/l [facility] AST 16 8 - 33 U/L [facility] BUN 90(H) 7 - 17 mg/dL [facility] GLOBULIN (CALC) 2.9 2.4 - 3.9 g/dL [facility] ALBUMIN 3.4(L) 3.5 - 5.0 g/dL [facility] CHLORIDE 100 95 - 110 mEq/L [facility] ANION GAP 21(H) 9 - 20 mEq/L [facility] ALT 20 4 - 36 IU/L [facility] SODIUM 131(L) 136 - 145 mEq/L [facility] CALCIUM 9.3 8.4 - 10.5 mg/dL [facility] Blood specimen (specimen) 08/27/2008 2:18 PM BILINGUAL CALL CENTER REPRESENTATIVE 08/27/2008 2:38 PM BILINGUAL CALL CENTER REPRESENTATIVE Physician Abhishek Ed CHEMISTRY ORDERABLES Edited Performing Organization Address [facility] Phone Number INTERFACE SYSTEM Refer to clinic/hospital department [facility] [facility] CLIA# [id number] [address] [place] [address] * AMYLASE (08/27/2008 2:05 PM BILINGUAL CALL CENTER REPRESENTATIVE) AMYLASE 38 20 - 104 U/L [facility] Blood specimen (specimen) 08/27/2008 2:05 PM BILINGUAL CALL CENTER REPRESENTATIVE 08/27/2008 2:50 PM BILINGUAL CALL CENTER REPRESENTATIVE Loki Wesley MD CHEMISTRY ORDERABLES Final R esult Performing Organization Address [facility] Phone Number INTERFACE SYSTEM Refer to clinic/hospital department [facility] CLIA# [id number] [address] [place] [address] * LIPASE (08/27/2008 2:05 PM BILINGUAL CALL CENTER REPRESENTATIVE) LIPASE 51 6 - 51 U/L [facility] Blood specimen (specimen) 08/27/2008 2:05 PM BILINGUAL CALL CENTER REPRESENTATIVE 08/27/2008 2:50 PM BILINGUAL CALL CENTER REPRESENTATIVE Loki Wesley MD CHEMISTRY ORDERABLES Final R esult Performing Organization Address [facility] Phone Number INTERFACE SYSTEM Refer to clinic/hospital [facility] CLIA# [id number] [address] [place] [address] * (ABNORMAL) PT AND APTT (08/27/2008 2:05 PM BILINGUAL CALL CENTER REPRESENTATIVE) PTT 36.4 22.5 - 36.5 Secs [facility] Comment: Therapeutic Range: Hi-level PE/DVT heparin protocol 80.1 -95.0 sec Lo-level PE/DVT heparin protocol 67.1 - 80.0 sec Cardiac Heparin Protocol 67.1 - 85.0 sec Neuro Heparin Protocol 67.1 - 80.0 sec As of 11/12/2007 note change in APTT Normal Range. PROTIME 18.3(H) 12.8 - 15.8 Secs [facility] Comment:As of 2007 not e change in normal range. INR 1.4 [facility] Comment: Expected Values for INR: DVT/PE Goal INR 2.5; range 2.0 - 3.0 Valve Replacement Tissue Goal INR 2.5; range 2.0 - 3.0 Mechanical Goal INR 3.0; range 2.5 - 3.5 POST-AZ Goal INR 2.5; range 2.0 - 3.0 or Goal 3.0; range 2.5 - 3.5 Atrial Fibrillation Goal INR 2.5; range 2.0 - 3.0 Ischemic Stroke Goal INR 2.5; range 2.0 - 3.0 For additional information see Guidelines for Anticoagulation available from the pharmacy Lucy Rangel, Pharm D. [phone] Blood specimen (specimen) 08/27/2008 2:05 PM BILINGUAL CALL CENTER REPRESENTATIVE 08/27/2008 2:51 PM BILINGUAL CALL CENTER REPRESENTATIVE Loki Wesley MD HEMATOLOGY ORDERABLES Edited INTERFACE SYSTEM Refer to clinic/hospital department [facility] CLIA# [id number] [address] [place] [address] documented in this encounter Visit Diagnoses Diagnosis Abdominal pain, unspecified site documented in this encounter Care Teams Fish Stringer Assembler Relationship Specialty Start Date End Date Smith Martínez DO [address] [facility] [address] [address] PCP - General Internal Medicine 08/06/18 documented as of this encounter
--- OUTSIDE RECORDS SUMMARY | 2025-04-01 12:48 | XMS_ITS | Encounter Summary ---
Author Organization [facility] Address [address] [place] [address] Care Team Providers Care Hardwood Floor Sander Name Role Phone mSith Martínez DO Primary Care Provide r Encounter Details Date Type Department Care Team (Latest Contact Info) Description 01/23/2005 Outpatient [facility] Gastroenterology[address] [place] [address] Sloan Vickers MD [address] [place] [address] [address] [place] [address] VIR HEP NEC W/O COMA W HEP C CHRON (CMS/HCC) (Primary Dx); CIRRHOSIS OF LIVER NOS (CMS/HCC) Social History Tobacco Use Types Packs/Day Years Used Date Smoking Tobacco: Never Assessed Comments Unknown Sex and Gender Information Value Date Recorded Sex Assigned at Not on file Legal Sex Female 6:13 AM TECHNOLOGIST DEVELOPMENT Gender Identity Not on file Sexual Orientation [...] alcohol documented in this encounter Care Teams Hardwood Floor Sander Relationship Specialty Start Date End Date Smith Martínez DO [address] [place] [address] PCP - General Internal Medicine 08/06/18 documented as of this encounter
--- OUTSIDE RECORDS SUMMARY | 2025-04-01 12:48 | XMS_ITS | Encounter Summary ---
Author Organization [facility] Address [address] [place] [address] Care Team Providers Care Welcome Desk Agent Name Role Phone MartínezSmith nowakhaniel Primary Care Provide r Reason for Referral * Outpatient Services (Routine) - Closed Specialty Diagnoses / Procedures Referred By Alfredo smith Referred To Contact Diagnoses Other screening mammogram Procedures MAMMO DIGITAL SCREEN BILAT Ligia Parra, POWER CLEANER OPERATOR [address] [address] Phone: tel: fax: [facility] Pre-Registration [place] CALL TO MAKE APPOINTMENT ONLY [address] [place] [address] Phone: tel: fax: Referral ID Status Reason Start Date Expiration Date V isits Requested Visits Authorized [id number] Closed F [facility] TO SCHEDULE (SGF) 05/30/2014 06/30/2015 1 1 Encounter Details Date Type Department Care Team (Late st Contact Info) Description 05/30/2014 Ancillary Orders [facility] Pre-Registration [place] CALL TO MAKE APPOINTMENT ONLY [address] [place] [address] Ligia Parra, POWER CLEANER OPERATOR [address] [address] Other screening mammogram (Primary Dx) Social History Tobacco Use Types Packs/Day Years Used Date Smoking Tobacco: Never Alcohol Use Standard Drinks/Week Comments No 0 (1 standard drink = 0.6 oz pur e alcohol) Comments No Sex and Gender Information Value Date Recorded Sex Assigned at Not on file Legal Sex Female 6:13 AM EXHAUST AND MUFFLER REPAIRER Gender Identity Not on file Sexual Orientation Not on file Occupation Industry Job Start Date Job End Date Not on file Not on file Not on file Not on file documented as of this encounter Plan of Treatment Not on file documented as of this encounter Results * MAMMO DIGITAL SCREEN BILAT (06/15/2014 1:56 PM CDT) Anatomical Region Laterality Modality Breast Bilateral Mammography Narrative 06/19/2014 4:57 PM CDT Bilateral Mammogram Reason for Exam: Screening Comparison: Compared to: 04/16/2012 MAMMO DIGITAL SCREEN BILAT, 06/14/2010 MAMMO DIGITAL SCREEN BILAT Findings: Bilateral CC and MLO views were obtained. This examination was reviewed with the aid of a computer-aided detection system(CAD). The breast tissue density is average. No significant new findings since the prior mammogram(s). Procedure Note Hadley Anne MD - 06/19/2014 Bilateral Mammogram Reason for Exam: Screening Comparison: Compared to: 04/16/2012 MAMMO DIGITAL SCREEN BILAT, 06/14/2010MAMMO DIGITAL SCREEN BILAT Findings: Bilateral CC and MLO views were obtained. This examination was reviewed with the aid of a computer-aided detectionsystem(CAD). The breast tissue density is average. No significant new findings since the prior mammogram(s). Ligia Parra NP MAMMO ORDERABLES Final Result documented in this encounter Visit Diagnoses Diagnosis Other screening mammogram- Primary Other screening mammogram documented in this encounter Care Teams Welcome Desk Agent Relationship Specialty Start Date End Date Smith Martínez DO [address] [phone] PCP - General Internal Medicine 08/06/18 documented as of this encounter
--- OUTSIDE RECORDS SUMMARY | 2025-04-01 12:48 | XMS_ITS | Encounter Summary ---
Author Organization [facility] Address [address] [facility] [address] Attn: [place] [address] Care Team Providers Care Oil Well Logger Name Role Phone Smith Martínez Primary Care Provide r Encounter Details Date Type Department Care Team (Late st Contact Info) Description 03/14/2008 Outpatient Historical Christiano Ramírez MD NO ADDRESS ON FILE Social History Tobacco Use Types Packs/Day Years Used Date Smoking Tobacco: Never Alcohol Use Standard Drinks/Week Comments No 0 (1 standard drink = 0.6 oz pur e alcohol) Comments Unknown Sex and Gender Information Value Date Recorded Sex Assigned at Not on file Legal Sex Female 6:13 AM PERFECT BINDER OPERATOR Gender Identity Not on file Sexual Orientation Not on file documented as of this encounter Plan of Treatment Not on file documented as of this encounter Procedures Procedure Name Priority Date/Time Associated Diagnosis Comments ALPHA FETOPROTEIN TUMOR MARKER Routine 03/14/2008 2:11 PM CDT documented in this encounter Results * ALPHA FETOPROTEIN TUMOR MARKER (03/14/2008 2:11 PM CDT) ALPHA FETOPROTEIN MATERNAL 2.9 0.0 - 8.1 ng/mL [facility] Comment: AFP assay methodology was changed from the Vitros ECI to the Advia Centaur on 10/19/07 Collection date/time has been modified to: 14:11:00. Previous collection date/time: 16:46:00. AFP assay methodology was changed from the Vitros ECI to the Advia Centaur on 10/19/07 Blood specimen (specimen) 03/14/2008 2:11 PM CDT 03/14/2008 4:46 PM CDT us Christiano Ramírez MD CHEMISTRY ORDERABLES Edited [facility] CLIA# [id number] [address] [place] [address] documented in this encounter Visit Diagnoses Not on filedocumented in this encounter Care Teams Oil Well Logger Relationship Specialty Start Date End Date Smith Martínez DO [address] [address] PCP - General Internal Medicine 08/06/18 documented as of this encounter
--- OUTSIDE RECORDS SUMMARY | 2025-04-01 12:48 | XMS_ITS | Clinical Summary ---
Author Organization [facility] Address [address] [facility] Attn: Epic [place] [address] Care Team Providers Care Gas Welder Apprentice Name Role Phone Smith Martínez DO Primary Care Provide r Allergies Active Allergy Reactions Criticality Noted Date Comments Penicillins Hives High 03/11/2008 Medications metoprolol tartrate (LOPRESSOR) 25 mg tablet Take 25 mg by mouth 2 times daily. 07/29/2019 Active Eliquis 5 mg tablet 07/09/2021 Active losartan (COZAAR) 25 mg tablet 07/09/2021 Active calcium carb/magnesium oxid/D3 (CALCIUM MAGNESIUM + D ORAL) Take by mouth 2 times daily. 05/23/2016 Active methionine/inosi karen/choline (CHOLINE-INOSITO L-METHIONINE ORAL) Take by mouth. 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 Overview (12/21/2020): Liver, kidney transplant Oliver 04/02 Liver failure 12/20/2008 Renal insufficiency 11/15/2008 JENNIFER (iron deficiency anemia) 10/04/2008 Chronic hepatitis C without mention of hepatic c annelise 05/10/2008 Other ascites 04/26/2008 Esophageal varices Overview (12/20/2020): grade 2 Gastritis and gastroduodenitis Kidney replaced by transplant Liver transplant Immunizations Immunization Administration Dates Next Due Hepatitis A Vaccine 09/16/2006,03/03/2006 Hepatitis B Vaccine 01/24/2008,08/05/2007,2006 Influenza Vaccine Split 3+ Yrs IM 07/25/2008 Family History Medical History Relation Name Comments Stroke Father Hypertension Mother Breast Cancer Neg Hx negative respo nse-see media tab Colon Cancer Neg Hx Relation Name Status Comments Father parkinsons Mother Alive Social History Tobacco Use Types Packs/Day Years Used Date Smoking Tobacco: Never Smokeless Tobacco: Never Alcohol Use Standard Drinks/Week Comments No 0 (1 standard drink = 0.6 oz pur e alcohol) Comments Unknown Sex and Gender Information Value Date Recorded Sex Assigned at Not on file Legal Sex Female 1:20 PM NARROW FABRICS WEAVER Gender Identity Not on file Sexual Orientation Not on file Last Filed Vital Signs Vital Sign Reading Time Taken Comments Blood Pressure 130/70 08/02/2021 12:36 PM NARROW FABRICS WEAVER Pulse 80 08/02/2021 12:36 PM NARROW FABRICS WEAVER Temperature 35.6 C (96 F) 11/09/2020 2:00 PM CDT Respiratory Rate 18 11/09/2020 2:00 PM CDT Oxygen Saturation - - Inhaled Oxygen Concentration - - Weight 64.5 kg (142 lb 3.2 oz) 08/02/2021 12:36 PM NARROW FABRICS WEAVER Height 160 cm (5' 3 ) 08/02/2021 12:36 PM NARROW FABRICS WEAVER Body Mass Index 25.19 08/02/2021 12:36 PM NARROW FABRICS WEAVER Plan of Treatment Health Maintenance Due Date Last Done Comments DIABETES ANNUAL FOOT EXAM 1963 DIABETES HBA1C Q 6 MONTHS 1963 DIABETES MICROALBUMIN ANNUAL SCREEN 1963 LDL CHOLESTEROL ANNUAL 1963 DTAP/TDAP/TD VACCINES (1 - Tdap) 1964 ZOSTER VACCINE (1 of 2) 1964 PNEUMOCOCCAL VACCINE 50+ YEA RS (2 of 2 - PCV) 07/18/2009 07/18/2008 RSV VACCINE (60+ or ) (1 - 1-dose 75+ series) 2020 DIABETES ANNUAL RETINAL EXAM 04/26/202209/2020, 04/14/2020, 08/03/2019, Additional history exists INFLUENZA VACCINE (#1) 2025 9, 06/27/2010, 07/25/2008 OSTEOPOROSIS SCREENING 04/26/2026 1, 04/26/2021, 09/16/2018, Additional history exists COLORECTAL SCREENING Discontinued 06/18/2013 Colorectal Cancer Screening Discontinued FIT-DNA Q 3 years Discontinued FIT/FOBT Q 1 year Discontinued Flex Sig/CT Colonography Q 5 years Discontinued Procedures Procedure Name Priority Date/Time Associated Diagnosis Comments XR DEXA BONE DENSITY AXIAL 1 OR MORE SITES Routine 04/26/2021 11:16 AM CDT Age-related osteoporosis without current pathological fracture from Last 3 Months or Most Recently Relevant to Health Maintenance Results * XR DEXA BONE DENSITY AXIAL 1 OR MORE SITES (04/26/2021 11:16 AM CDT) Anatomical Region Laterality Modality Nuclear Medicine 04/26/2021 11:1 6 AM CDT Impressions 04/26/2021 10:24 PM CDT IMPRESSION: Abnormal examination Bone density lies in the osteopenic range at all locations at the average the patient's age-matched control. Reclast therapy is noted. Narrative 04/26/2021 10:24 PM CDT DEXA Evaluation of the Lumbar Spine and Left Proximal Femur Reason for Consultation: Osteoporosis on Reclast therapy. Evaluation of bone mineral density. The following absorptiometry data were obtained. The quality of this examination is acceptable with regards to count density, processed images, data display and lack of important artifacts (including but not limited to motion and attenuation artifacts). Serial examination number 1 at this facility. Lumbar spine images demonstrate degenerative changes at upper levels resulting in spurious elevation of bone density to some degree. L3-L4 BMD (g/cm2): 1.024 Adult T-score: -1.5 Adult Z-score: 0.4 Left Femoral Neck BMD (g/cm2): 0.788 Adult T-score: -1.8 Adult Z-score: 0.2 Left Total Hip BMD (g/cm2): 0.776 Adult T-score: -1.8 Adult Z-score: 0.0 Procedure Note Salomón James MD - 04/26/2021 DEXA Evaluation of the Lumbar Spine and Left Proximal Femur Reason for Consultation: Osteoporosis on Reclast therapy. Evaluation of bone mineral density. The following absorptiometry data were obtained. The quality of this examination is acceptable with regards to count density, processed images, data display and lack of important artifacts (including but not limited to motion and attenuation artifacts). Serial examination number 1 at this facility. Lumbar spine images demonstrate degenerative changes at upper levels resulting in spurious elevation of bone density to some degree. L3-L4 BMD (g/cm2): 1.024 Adult T-score: -1.5 Adult Z-score: 0.4 Left Femoral Neck BMD (g/cm2): 0.788 Adult T-score: -1.8 Adult Z-score: 0.2 Left Total Hip BMD (g/cm2): 0.776 Adult T-score: -1.8 Adult Z-score: 0.0 IMPRESSION: Abnormal examination Bone density lies in the osteopenic range at all locations at the average the patient's age-matched control. Reclast therapy is noted. us Rakesh Lobo MD DIAGNOSTIC IMAGING ORDERABLE S Final Result from Last 3 Months or Most Recently Relevant to Health Maintenance Insurance MEDICARE PART A AND B [employer] PPO [employer] PPO MCR Care Teams Gas Welder Apprentice Relationship Specialty Start Date End Date Smith Martínez DO [address] [place] [address] [address] PCP - General Internal Medicine 08/06/18
--- OUTSIDE RECORDS SUMMARY | 2025-04-01 12:48 | XMS_ITS | Encounter Summary ---
Author Organization [facility] Address [address] [place] [address] Care Team Providers Care Generalist Name Role Phone Smith Martínez DO Primary Care Provide r Encounter Details Date Type Department Care Team ([facility] Contact Info) Description 12/07/2003 Outpatient Historical [facility] Ligia Parra, OIL WELL SERVICES DISPATCHER [address] [address] Social History Tobacco Use Types Packs/Day Years Used Date Smoking Tobacco: Never Assessed Comments Unknown Sex and Gender Information Value Date Recorded Sex Assigned at Not on file Legal Sex Female 6:13 AM GLOVE PRESSER Gender Identity Not on file Sexual Orientation Not on file documented as of this encounter Plan of Treatment Not on file documented as of this encounter Visit Diagnoses Not on filedocumented in this encounter Care Teams Generalist Relationship Specialty Start Date End Date Smith Martínez DO [address] [facility] [address] [place] [address] PCP - General Internal Medicine 08/06/18 documented as of this encounter
--- OUTSIDE RECORDS SUMMARY | 2025-04-01 12:48 | XMS_ITS | Encounter Summary ---
Author Organization [facility] Address [address] [place] [address] Care Team Providers Care Planning Specialist Name Role Phone Smith Martínez DO Primary Care Provide r Encounter Details Date Type Department Care Team (Latest Contact Info) Description 01/03/2004 Outpatient Historical [facility] Cancer and Hematology [address] [place] [address] [address] [place] [address] Jakub Berry MD NO ADDRESS ON FILE PRIMARY THROMBOCYTOPENIA (Primary Dx); HYPERSPLENISM Social History Tobacco Use Types Packs/Day Years Used Date Smoking Tobacco: Never Assessed Comments Unknown Sex and Gender Information Value Date Recorded Sex Assigned at Not on file Legal Sex Female 6:13 AM PICK PACK WORKER Gender Identity Not on file Sexual Orientation Not on file documented as of this encounter Plan of Treatment Not on file documented as of this encounter Visit Diagnoses Diagnosis Primary thrombocytopenia- Primary Hypersplenism documented in this encounter Care Teams Planning Specialist Relationship Specialty Start Date End Date Smith Martínez DO [address] [place] [address] PCP - General Internal Medicine 08/06/18 documented as of this encounter
--- OUTSIDE RECORDS SUMMARY | 2025-04-01 12:48 | XMS_ITS | Encounter Summary ---
Author Organization [facility] Address [address] [place] [address] Care Team Providers Care Regulatory Administrator Name Role Phone Smith Martínez DO Primary Care Provide r Encounter Details Date Type Department Care Team (Latest Contact Info) Description 08/12/2006 Outpatient [facility] Gastroenterology[address] [place] [address] Christiano Ramírez MD NO ADDRESS ON FILE Chronic Hepatitis C without Mention of Hepatic Coma (CMS/HCC) (Primary Dx) Social History Tobacco Use Types Packs/Day Years Used Date Smoking Tobacco: Never Assessed Comments Unknown Sex and Gender Information Value Date Recorded Sex Assigned at Not on file Legal Sex Female 6:[address]PERVISOR Gender Identity Not on file Sexual Orientation Not on file documented as of this encounter Plan of Treatment Not on file documented as of this encounter Visit Diagnoses Diagnosis Chronic hepatitis C without mention of hepatic coma (CMS/HCC)- Primary Chronic hepatitis C without mention of hepatic coma documented in this encounter Care Teams Regulatory Administrator Relationship Specialty Start Date End Date Smith Martínez DO [address] [facility] [address] [place] [address] PCP - General Internal Medicine 08/06/18 documented as of this encounter
--- OUTSIDE RECORDS SUMMARY | 2025-04-01 12:48 | XMS_ITS | Encounter Summary ---
Author Organization [facility] Address [address] [place] [address] Care Team Providers Care Senior Backup Administrator Name Role Phone Smith Martínez DO Primary Care Provide r Encounter Details Date Type Department Care Team (Late st Contact Info) Description 08/06/2007 Outpatient [facility] Gastroenterology[address] [place] [address] Christiano Ramírez MD NO ADDRESS ON FILE Social History Tobacco Use Types Packs/Day Years Used Date Smoking Tobacco: Never Assessed Comments Unknown Sex and Gender Information Value Date Recorded Sex Assigned at Not on file Legal Sex Female 6:13 AM 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
--- OUTSIDE RECORDS SUMMARY | 2025-04-01 12:48 | XMS_ITS | Encounter Summary ---
Author Organization [facility] Address [address] [place] [address] Care Team Providers Care Viscosity Worker Name Role Phone Smith Martínze DO Primary Care Provide r Encounter Details Date Type Department Care Team (Late st Contact Info) Description 08/29/2008 Outpatient [facility] [address] [place] [address] [facility] Social History Tobacco Use Types Packs/Day Years Used Date Smoking Tobacco: Never Alcohol Use Standard Drinks/Week Comments No 0 (1 standard drink = 0.6 oz pur e alcohol) Comments No Sex and Gender Information Value Date Recorded Sex Assigned at Not on file Legal Sex Female 6:13 AM ONLINE MARKETING SPECIALIST Gender Identity Not on file Sexual Orientation Not on file documented as of this encounter Plan of Treatment Not on file documented as of this encounter Visit Diagnoses Not on filedocumented in this encounter Care Teams Viscosity Worker Relationship Specialty Start Date End Date Smith Martínez DO [address] [place] [address] PCP - General Internal Medicine 08/06/18 documented as of this encounter
--- OUTSIDE RECORDS SUMMARY | 2025-04-01 12:48 | XMS_ITS | Encounter Summary ---
Author Organization [facility] Address [address] [place] [address] Care Team Providers Care Assistant Professor Of Economics Name Role Phone Smith Martínez DO Primary Care Provide r Encounter Details Date Type Department Care Team (Late st Contact Info) Description 12/20/2003 Outpatient Historical [facility] Cancer and Hematology [address] [place] [address] [address] [place] [address] Jakub Berry MD NO ADDRESS ON FILE Social History Tobacco Use Types Packs/Day Years Used Date Smoking Tobacco: Never Assessed Comments Unknown Sex and Gender Information Value Date Recorded Sex Assigned at Not on file Legal Sex Female 6:13 AM TRANS ROUTER Gender Identity Not on file Sexual Orientation Not on file documented as of this encounter Plan of Treatment Not on file documented as of this encounter Visit Diagnoses Not on filedocumented in this encounter Care Teams Assistant Professor Of Economics Relationship Specialty Start Date End Date Smith Martínez DO [address] [facility] [address] [place] [address] PCP - General Internal Medicine 08/06/18 documented as of this encounter
--- OUTSIDE RECORDS SUMMARY | 2025-04-01 12:48 | XMS_ITS | Encounter Summary ---
Author Organization [facility] Address [address] [place] [address] Care Team Providers Care Ornament Maker Hand Name Role Phone Smith Martínez DO Primary Care Provide r Encounter Details Date Type Department Care Team (Latest Contact Info) Description 03/04/2005 Outpatient [facility] Gastroenterology[address] [place] [address] Sloan Vickers MD [address] [place] [address] [address] [place] [address] VIR HEP NEC W/O COMA W HEP C CHRON (CMS/HCC) (Primary Dx); CIRRHOSIS OF LIVER NOS (CMS/HCC) Social History Tobacco Use Types Packs/Day Years Used Date Smoking Tobacco: Never Assessed Comments Unknown Sex and Gender Information Value Date Recorded Sex Assigned at Not on file Legal Sex Female 6:13 AM DRYWALL SPRAYER Gender Identity Not on file Sexual Orientation [...] alcohol documented in this encounter Care Teams Ornament Maker Hand Relationship Specialty Start Date End Date Smith Martínez DO [address] [place] [address] PCP - General Internal Medicine 08/06/18 documented as of this encounter
--- OUTSIDE RECORDS SUMMARY | 2025-04-01 12:48 | XMS_ITS | Encounter Summary ---
Author Organization [facility] Address [address] [place] [address] Care Team Providers Care Chorus Master Name Role Phone Smith Martínez DO Primary Care Provide r Encounter Details Date Type Department Care Team (Latest Contact Info) Description 09/16/2006 [facility] [address] [facility] [address] [place] [address] Aristides Herzog MD NO ADDRESS ON FILE Actinic Keratosis (Primary Dx); Other Atopic Dermatitis and Related Conditions Social History Tobacco Use Types Packs/Day Years Used Date Smoking Tobacco: Never Assessed Comments Unknown Sex and Gender Information Value Date Recorded Sex Assigned at Not on file Legal Sex Female 6:13 AM TRAINING PROGRAM ASSISTANT Gender Identity Not on file Sexual Orientation Not on file documented as of this encounter Plan of Treatment Not on file documented as of this encounter Visit Diagnoses Diagnosis Actinic keratosis- Primary Other atopic dermatitis and related conditions documented in this encounter Care Teams Chorus Master Relationship Specialty Start Date End Date Smith Martínez DO [address] [place] [address] PCP - General Internal Medicine 08/06/18 documented as of this encounter
--- OUTSIDE RECORDS SUMMARY | 2025-04-01 12:48 | XMS_ITS | Encounter Summary ---
Author Organization [facility] Address [address] [place] [address] Care Team Providers Care Intelligence Research Specialist Name Role Phone Smith Martínez DO Primary Care Provide r Encounter Details Date Type Department Care Team (Latest Contact Info) Description 12/07/2003 Outpatient [facility] [address] [email or web address] [address] [place] [address] Kade Rios MD NO ADDRESS ON FILE SCREENING MAMM-MAILG NEOPL-OTHER (Primary Dx) Social History Tobacco Use Types Packs/Day Years Used Date Smoking Tobacco: Never Assessed Comments Unknown Sex and Gender Information Value Date Recorded Sex Assigned at Not on file Legal Sex Female 6:13 AM CITY LETTER CARRIER Gender Identity Not on file Sexual Orientation Not on file documented as of this encounter Plan of Treatment Not on file documented as of this encounter Visit Diagnoses Diagnosis Other screening mammogram- Primary documented in this encounter Care Teams Intelligence Research Specialist Relationship Specialty Start Date End Date Smith Martínez DO [address] [place] [address] PCP - General Internal Medicine 08/06/18 documented as of this encounter
--- OUTSIDE RECORDS SUMMARY | 2025-04-01 12:48 | XMS_ITS | Encounter Summary ---
Author Organization [facility] Address [address] [place] [address] Care Team Providers Care Boot Repairer Name Role Phone Smith Martínez DO Primary Care Provide r Encounter Details Date Type Department Care Team (Latest Contact Info) Description 03/17/2008 Outpatient Historical [facility] Endoscopy [address] [place] [address] Christiano Ramírez MD NO ADDRESS ON FILE Scar Condition and Fibrosis of Skin; Esoph Varice Other Dis (CMS/HCC); Unspecified Viral Hepatitis C without Hepatic Coma; Other Specified Disorder of Stomach and Duodenum; Unspecified Epilepsy without Mention of Intractable Epilepsy (CMS/HCC); Personal History of Allergy to Penicillin Social History Tobacco Use Types Packs/Day Years Used Date Smoking Tobacco: Never Alcohol Use Standard Drinks/Week Comments No 0 (1 standard drink = 0.6 oz pur e alcohol) Comments Unknown Sex and Gender Information Value Date Recorded Sex Assigned at Not on file Legal Sex Female 6:13 AM EDUCATIONAL DIAGNOSTICIAN Gender Identity Not on file Sexual Orientation Not on file documented as of this encounter Plan of Treatment Not on file documented as of this encounter Visit Diagnoses Diagnosis Scar condition and fibrosis of skin Esophageal varices without mention of bleeding in diseases classified elsewhere Unspecified viral hepatitis C without hepatic coma Other specified disorder of stomach and duodenum Unspecified epilepsy without mention of intractable epilepsy (CMS/HCC) Unspecified epilepsy without mention of intractable epilepsy Personal history of allergy to penicillin documented in this encounter Care Teams Boot Repairer Relationship Specialty Start Date End Date Smith Martínez DO [address] [facility] [address] [place] [address] PCP - General Internal Medicine 08/06/18 documented as of this encounter
--- OUTSIDE RECORDS SUMMARY | 2025-04-01 12:48 | XMS_ITS | Encounter Summary ---
Author Organization [facility] Address [address] [place] [address] Care Team Providers Care Investment Associate Name Role Phone MartínezSmith nowak Benedict Primary Care Provide r Reason for Referral * Outpatient Services (Routine) - Closed Specialty Diagnoses / Procedures Referred By Alfredo smith Referred To Contact Diagnoses Other screening mammogram Procedures MAMMO DIGITAL SCREEN BILAT Ligia Parra, PERSONNEL GENERALIST MANAGER [address] [address] Phone: tel: fax: [facility] Pre-Registration [place] CALL TO MAKE APPOINTMENT ONLY [address] [place] [address] Phone: tel: fax: Referral ID Status Reason Start Date Expiration Date Visits Re quested Visits Authorized [id number] Closed 03/10/2012 03/10/2013 1 1 Encounter Details Date Type Department Care Team (Late st Contact Info) Description 03/10/2012 Ancillary Orders [facility] Pre-Registration [place] CALL TO MAKE APPOINTMENT ONLY [address] [place] [address] Ligia Parra PERSONNEL GENERALIST MANAGER [address] [address] Other screening mammogram Social History Tobacco Use Types Packs/Day Years Used Date Smoking Tobacco: Never Alcohol Use Standard Drinks/Week Comments No 0 (1 standard drink = 0.6 oz pur e alcohol) Comments No Sex and Gender Information Value Date Recorded Sex Assigned at Not on file Legal Sex Female 6:13 AM BUFFER INFLATED PAD Gender Identity Not on file Sexual Orientation Not on file documented as of this encounter Plan of Treatment Not on file documented as of this encounter Results * MAMMO DIGITAL SCREEN BILAT (04/16/2012 11:15 AM CDT) Anatomical Region Laterality Modality Breast Bilateral Mammography 04/16/2012 11:0 5 AM CDT Impressions 04/21/2012 2:47 PM CDT IMPRESSION: Annual screening mammogram. JT/valdo - uploaded from [employer] - Narrative 04/21/2012 2:47 PM CDT REASON FOR EXAM: Screening IMAGES OBTAINED: Standard 4-view mammogram. PATIENT COMPLAINT: No Concerns FAMILY HX.-BREAST Ca: Negative TISSUE COMPOSITION: Average density. COMPARISON EXAM(S): June 14, 2010, April 14, 2010 and March 03, 2006. FINDINGS: No significant interval change. This mammogram was also analyzed by the Computer Aided Detection System (CAD), R2 ImageChecker, Version 8.3. Procedure Note Dilma Suero MD - 04/21/2012 REASON FOR EXAM: Screening IMAGES OBTAINED: Standard 4-view mammogram. PATIENT COMPLAINT: No Concerns FAMILY HX.-BREAST Ca: Negative TISSUE COMPOSITION: Average density. COMPARISON EXAM(S): June 14, 2010, April 14, 2010 and March 03, 2006. FINDINGS: No significant interval change. This mammogram was also analyzed by the Computer Aided Detection System (CAD), R2 ImageChecker, Version 8.3. IMPRESSION IMPRESSION: Annual screening mammogram. RISA/valdo - uploaded from [employer] - us Ligia Parra PERSONNEL GENERALIST MANAGER MAMMO ORDERABLES Final Result documented in this encounter Visit Diagnoses Diagnosis Other screening mammogram Other screening mammogram documented in this encounter Care Teams Investment Associate Relationship Specialty Start Date End Date Smith Martínez DO [address] [address] PCP - General Internal Medicine 08/06/18 documented as of this encounter
--- OUTSIDE RECORDS SUMMARY | 2025-04-01 12:48 | XMS_ITS | Encounter Summary ---
Author Organization [facility] Address [address] [place] [address] Care Team Providers Care Sap Business Objects Consultant Name Role Phone Smith Martínez DO Primary Care Provide r Encounter Details Date Type Department Care Team (Latest Contact Info) Description 02/11/2005 Outpatient [facility] Gastroenterology[address] [place] [address] Sloan Vickers MD [address] [place] [address] [address] [place] [address] VIR HEP NEC W/O COMA W HEP C CHRON (CMS/HCC) (Primary Dx); CIRRHOSIS OF LIVER NOS (CMS/HCC) Social History Tobacco Use Types Packs/Day Years Used Date Smoking Tobacco: Never Assessed Comments Unknown Sex and Gender Information Value Date Recorded Sex Assigned at Not on file Legal Sex Female 6:13 AM PR MANAGER Gender Identity Not on file Sexual [...] alcohol documented in this encounter Care Teams Sap Business Objects Consultant Relationship Specialty Start Date End Date Smith Martínez DO [address] [place] [address] PCP - General Internal Medicine 08/06/18 documented as of this encounter
--- OUTSIDE RECORDS SUMMARY | 2025-04-01 12:48 | XMS_ITS | Encounter Summary ---
Author Organization [facility] Address [address] [place] [address] Care Team Providers Care Trigonometry Teacher Name Role Phone Smith Martínez DO Primary Care Provide r Encounter Details Date Type Department Care Team (Late st Contact Info) Description 09/08/2008 Ancillary Orders [facility] Imaging Services [address] [place] [address] Isrrael Maya MD [address] [address] Social History Tobacco Use Types Packs/Day Years Used Date Smoking Tobacco: Never Alcohol Use Standard Drinks/Week Comments No 0 (1 standard drink = 0.6 oz pur e alcohol) Comments No Sex and Gender Information Value Date Recorded Sex Assigned at Not on file Legal Sex Female 6:13 AM THERAPEUTIC RECREATION DIRECTOR Gender Identity Not on file Sexual Orientation Not on file documented as of this encounter Plan of Treatment Not on file documented as of this encounter Visit Diagnoses Not on filedocumented in this encounter Care Teams Trigonometry Teacher Relationship Specialty Start Date End Date Smith Martínez DO [address] [facility] [address] [place] [address] PCP - General Internal Medicine 08/06/18 documented as of this encounter
--- OUTSIDE RECORDS SUMMARY | 2025-04-01 12:48 | XMS_ITS | Encounter Summary ---
Author Organization [facility] Address [address] [place] [address] Care Team Providers Care Income Tax Manager Name Role Phone Smith Martínez DO Primary Care Provide r Encounter Details Date Type Department Care Team (Latest Contact Info) Description 12/07/2002 Outpatient Historical [facility] Endoscopy Jelena [address] [place] [address] Nilton Samaniego MD [address] [facility] [address] [place] [address] DIARRHEA NOS (Primary Dx) Social History Tobacco Use Types Packs/Day Years Used Date Smoking Tobacco: Never Assessed Comments Unknown Sex and Gender Information Value Date Recorded Sex Assigned at Not on file Legal Sex Female 6:13 AM HAND DRILLER Gender Identity Not on file Sexual Orientation Not on file documented as of this encounter Plan of Treatment Not on file documented as of this encounter Visit Diagnoses Diagnosis Diarrhea- Primary documented in this encounter Care Teams Income Tax Manager Relationship Specialty Start Date End Date Smith Martínez DO [address] [place] [address] PCP - General Internal Medicine 08/06/18 documented as of this encounter
--- OUTSIDE RECORDS SUMMARY | 2025-04-01 12:48 | XMS_ITS | Encounter Summary ---
Author Organization [facility] Address [address] [place] [address] Care Team Providers Care Furnace Reliner Name Role Phone Smith Martínez DO Primary Care Provide r Encounter Details Date Type Department Care Team (Late st Contact Info) Description 07/21/2006 Outpatient Historical [facility] Operating Room [address] [place] [address] Louie Hyman MD [address] [facility] [address] [place] [address] Unilat Ing Hernia (Primary Dx) Social History Tobacco Use Types Packs/Day Years Used Date Smoking Tobacco: Never Assessed Comments Unknown Sex and Gender Information Value Date Recorded Sex Assigned at Not on file Legal Sex Female 6:13 AM CAR SALES CONSULTANT Gender Identity Not on file Sexual Orientation Not on file documented as of this encounter Plan of Treatment Not on file documented as of this encounter Procedures Procedure Name Priority Date/Time Associated Diagnosis Comments DIFFERENTIAL, MANUAL Routine 07/21/2006 6:35 AM CAR SALES CONSULTANT CBC WITH DIFFERENTIAL Routine 07/21/2006 6:35 AM CAR SALES CONSULTANT COMPREHENSIVE METABOLIC PANEL Routine 07/21/2006 6:35 AM CAR SALES CONSULTANT documented in this encounter Results * (ABNORMAL) COMPREHENSIVE METABOLIC PANEL (07/21/2006 6:35 AM CAR SALES CONSULTANT) GLUCOSE 92 70 - 110 mg/dL INTERFACE SYSTEM BUN 23(H) 7 - 17 mg/dL INTERFACE SYSTEM CREATININE 1.0 0.7 - 1.2 mg/dL INTERFACE SYSTEM SODIUM 141 136 - 145 mEq/L INTERFACE SYSTEM POTASSIUM 4.8 3.5 - 5.0 mEq/L INTERFACE SYSTEM CHLORIDE 108 95 - 110 mEq/L INTERFACE SYSTEM CO2 25 22 - 32 mmol/l INTERFACE SYSTEM ANION GAP 13 9 - 20 mEq/L INTERFACE SYSTEM OSMOLALITY, CALCULATED 295 275 - 295 mOsm/Kg INTERFACE SYSTEM CALCIUM 9.5 8.4 - 10.5 mg/dL INTERFACE SYSTEM TOTAL PROTEIN 6.9 6.3 - 8.2 g/dL INTERFACE SYSTEM ALBUMIN 3.6 3.5 - 5.0 g/dL INTERFACE SYSTEM GLOBULIN (CALC) 3.3 2.4 - 3.9 g/dL INTERFACE SYSTEM ALBUMIN/GLOBULIN RATIO 1.1 1.0 - 2.3 INTERFACE SYSTEM ALKALINE PHOSPHATASE 110(H) 25 - 100 U/L INTERFACE SYSTEM Comment: As of 05 the [facility] has changed testing methods. The new reference range is 25-100 The old referance range was 38-126 AST 211(H) 8 - 33 U/L INTERFACE SYSTEM Comment: As of 05 the [facility] has changed testing methods. The new reference range is 8-33 The old referance range was Males 17-59 Females 14-36 ALT 196(H) 4 - 36 IU/L INTERFACE SYSTEM Comment: As of 05 the [facility] has changed testing methods. The new reference range is 4-36 The old referance range was Males 21-72 Females 9-52 BILIRUBIN TOTAL 1.3(H) 0.3 - 1.2 mg/dL INTERFACE SYSTEM Comment: As of 05 the [facility] has changed testing methods. The new reference range is 0.3-1.2 The old referance range was 0.2-1.4 07/21/2006 6:35 AM CAR SALES CONSULTANT us Louie Hyman MD CHEMISTRY ORDERABLES Fi nal Result INTERFACE SYSTEM Refer to clinic/hospital department * (ABNORMAL) DIFFERENTIAL, MANUAL (07/21/2006 6:35 AM CAR SALES CONSULTANT) NEUTROPHILS, SEG 56 36 - 66 % INTERFACE SYSTEM BANDS 6 0 - 6 % INTERFACE SYSTEM LYMPHOCYTES 27 24 - 44 % INTERFAC E SYSTEM MONOCYTE 5 4 - 10 % INTERFACE SYSTEM EOSINOPHILS 5(H) 0 - 3 % INTERFAC E SYSTEM BASOPHILS 1 0 - 1 % INTERFACE SYSTEM PLATELET EST. Decreased( A) Normal INTERFACE SYSTEM RBC MORPHOLOGY Normal Normal INTER FACE SYSTEM 07/21/2006 6:35 AM CAR SALES CONSULTANT Louie Hyman MD HEMATOLOGY ORDERABLES C OM Final Result Performing Organization Address [facility] Phone Number INTERFACE SYSTEM Refer to clinic/hospital department * (ABNORMAL) CBC WITH DIFFERENTIAL (07/21/2006 6:35 AM CAR SALES CONSULTANT) WBC 3.0(L) 4.8 - 10.8 K/ul INTERFACE SYSTEM RBC 3.90(L) 4.20 - 5.40 Mil/ul INTERFACE SYSTEM HEMOGLOBIN 12.1 12.0 - 16.0 g/dL INTERFACE SYSTEM HEMATOCRIT 36.7 36.0 - 46.0 % INTERFACE SYSTEM MCV 94.1 84.0 - 103.0 Fl INTERFACE SYSTEM MCH 31.0 27.0 - 34.0 pg INTERFACE SYSTEM MCHC 33.0 30.0 - 35.0 g/dL INTERFACE SYSTEM RDW 14.9(H) 11.0 - 14.5 % INTERFACE SYSTEM PLATELETS 37(L) 140 - 440 K/ul INTERFACE SYSTEM MPV 10.7 8.9 - 12.8 Fl INTERFACE SYSTEM 07/21/2006 6:35 AM CAR SALES CONSULTANT Louie Hyman MD HEMATOLOGY ORDERABLES F inal Result Performing Organization Address [facility] Phone Number INTERFACE SYSTEM Refer to clinic/hospital department documented in this encounter Visit Diagnoses Diagnosis Inguinal hernia without mention of obstruction or gangrene, unilateral or unspecified, (not specified as recurrent)- Primary documented in this encounter Care Teams Furnace Reliner Relationship Specialty Start Date End Date Smith Martínez DO [address] [place] [address] [address] PCP - General Internal Medicine 08/06/18 documented as of this encounter
--- OUTSIDE RECORDS SUMMARY | 2025-04-01 12:48 | XMS_ITS | Encounter Summary ---
Author Organization [facility] Address [address] [place] [address] Care Team Providers Care Tipple Oiler Name Role Phone Smith Martínez DO Primary Care Provide r Encounter Details Date Type Department Care Team (Late st Contact Info) Description 01/17/2005 Outpatient [facility] Gastroenterology[address] [place] [address] Social History Tobacco Use Types Packs/Day Years Used Date Smoking Tobacco: Never Assessed Comments Unknown Sex and Gender Information Value Date Recorded Sex Assigned at Not on file Legal Sex Female 6:13 AM TITLE ONE TEACHER Gender Identity Not on file Sexual Orientation Not on file documented as of this encounter Plan of Treatment Not on file documented as of this encounter Visit Diagnoses Not on filedocumented in this encounter Care Teams Tipple Oiler Relationship Specialty Start Date End Date Smith Martínez DO [address] [facility] 1 [place] [address] PCP - General Internal Medicine 08/06/18 documented as of this encounter
--- OUTSIDE RECORDS SUMMARY | 2025-04-01 12:48 | XMS_ITS | Encounter Summary ---
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); Unspecified Viral Hepatitis C without Hepatic Coma; Unspecified Essential Hypertension; Esophageal Varices without Mention of Bleeding (CMS/HCC); Unspecified Thrombocytopenia; Hyposmolality and/or Hyponatremia; Personal History of Allergy to Penicillin; Personal History of Diseases of Skin and Subcutaneous Tissue Social History Tobacco Use Types Packs/Day Years Used Date Smoking Tobacco: Never Alcohol Use Standard Drinks/Week Comments No 0 (1 standard drink = 0.6 oz pur e alcohol) Comments Unknown Sex and Gender Information Value Date Recorded Sex Assigned at Not on file Legal Sex Female 6:13 AM CORNER BRACE BLOCK MACHINE OPERATOR Gender Identity Not on file Sexual Orientation Not on file documented as of this encounter Plan of Treatment Not on file documented as of this encounter Procedures Procedure Name Priority Date/Time Associated Diagnosis Comments US GUIDED ASPIRATION Routine 04/28/2008 12:44 PM CDT PT AND APTT Stat 04/28/2008 12:13 PM CDT PLATELET COUNT Stat 04/28/2008 12:13 PM CDT documented in this encounter Results * US GUIDED ASPIRATION (04/28/2008 12:44 PM CDT) Anatomical Region Laterality Modality Other 04/28/2008 12:4 4 PM CDT Narrative 05/02/2008 7:17 AM CDT Ultrasound Guided Paracentesis: Date: 04/28/2008 Brief History: This is a patient referred [...] the insertion of a 7 cm 18-gauge Start[employer] Weekend centesis catheter, through which approximately 6800 mL of a clear mario fluid was then drained via vacuum bottles. The centesis catheter was removed in its entirety, the Betadine cleansed from the skin, and a sterile dressing placed. The patient was then transferred to the angio recovery area for a brief observation period in stable and comfortable condition, having tolerated the procedure well. - Dictated By: Jakub Whiteside Electronically Signed By: Blaise Correia MDMD Date Signed: 05/02/08 Procedure Note Blaise Correia - 05/02/2008 Ultrasound Guided Paracentesis: Date: 04/28/2008 Brief History: This is a patient referred [...] cm 18-gauge Yueh centesis catheter,through which approximately 6800 mL of a clear mario fluid was then drained via vacuum bottles. Thecentesis catheter was removed in its entirety, the Betadine cleansed from the skin, and a sterile dressingplaced. The patient was then transferred to the angio recovery area for a brief observation period instable and comfortable condition, having tolerated the procedure well. - Dictated By: Jakub Whiteside Electronically Signed By: Blaise Correia MD Date Signed: 05/02/08 us Christiano Ramírez MD ORDERABLES Final Result * (ABNORMAL) PT AND APTT (04/28/2008 12:13 PM CDT) PTT 38.0(H) 22.5 - 36.5 Secs [facility] Comment: Therapeutic Range: Hi-level PE/DVT heparin protocol 80.1 -95.0 sec Lo-level PE/DVT heparin protocol 67.1 - 80.0 sec Cardiac Heparin Protocol 67.1 - 85.0 sec Neuro Heparin Protocol 67.1 - 80.0 sec As of 11/12/2007 note change in APTT Normal Range. INR 1.3 [facility] Comment: Expected Values for INR: DVT/PE Goal INR 2.5; range 2.0 - 3.0 Valve Replacement Tissue Goal INR 2.5; range 2.0 - 3.0 Mechanical Goal INR 3.0; range 2.5 - 3.5 POST-MS Goal INR 2.5; range 2.0 - 3.0 or Goal 3.0; range 2.5 - 3.5 Atrial Fibrillation Goal INR 2.5; range 2.0 - 3.0 Ischemic Stroke Goal INR 2.5; range 2.0 - 3.0 For additional information see Guidelines for Anticoagulation available from the pharmacy James Matos [phone] PROTIME 17.5(H) 12.8 - 15.8 Secs [facility] Comment:As of 2007 not e change in normal range. Blood specimen (specimen) 04/28/2008 12:13 PM CDT 04/28/2008 12:17 PM CDT Christiano Ramírez MD HEMATOLOGY ORDERABLES Edited Performing Organization Address City/[facility] Co de Phone Number INTERFACE SYSTEM Refer to clinic/hospital department [facility] CLIA# [id number] [address] [place] [address] * (ABNORMAL) PLATELET COUNT (04/28/2008 12:13 PM CDT) PLATELETS 51(L) 140 - 440 K/ul [facility] Blood specimen (specimen) 04/28/2008 12:13 PM CDT 04/28/2008 12:17 PM CDT Christiano Ramírez MD HEMATOLOGY ORDERABLES Final Res ult Performing Organization Address [facility] de Phone Number INTERFACE SYSTEM Refer to clinic/hospital department [facility] CLIA# [id number] [facility] [place] [address] documented in this encounter Visit Diagnoses Diagnosis Other ascites Cirrhosis of liver without mention of alcohol (CMS/HCC) Cirrhosis of liver without mention of alcohol Unspecified viral hepatitis C without hepatic coma Unspecified essential hypertension Esophageal varices without mention of bleeding (CMS/HCC) Esophageal varices without mention of bleeding Thrombocytopenia, unspecified Hyposmolality and/or hyponatremia Personal history of allergy to penicillin Personal history of diseases of skin and subcutaneous tissue documented in this encounter Care Teams Tire Finisher Relationship Specialty Start Date End Date Smith Matrínez DO [address] [address] PCP - General Internal Medicine 08/06/18 documented as of this encounter
--- OUTSIDE RECORDS SUMMARY | 2025-04-01 12:48 | XMS_ITS | Encounter Summary ---
Author Organization [facility] Address [address] [place] [address] Care Team Providers Care Metal Numerical Control Programmer Name Role Phone Smith Martínez DO Primary Care Provide r Encounter Details Date Type Department Care Team (Latest Contact Info) Description 04/13/2004 Outpatient Historical [facility] RADIOLOGY NEUROP Nilton Samaniego MD [address] [facility] [address] [place] [address] HEPATITIS C ACUTE W/O HEPATIC COMA (Primary Dx) Social History Tobacco Use Types Packs/Day Years Used Date Smoking Tobacco: Never Assessed Comments Unknown Sex and Gender Information Value Date Recorded Sex Assigned at Not on file Legal Sex Female 6:13 AM DREDGE PIPEMAN Gender Identity Not on file Sexual Orientation Not on file documented as of this encounter Plan of Treatment Not on file documented as of this encounter Visit Diagnoses Diagnosis Acute hepatitis C without mention of hepatic coma(070.51)- Primary Acute hepatitis C without mention of hepatic coma documented in this encounter Care Teams Metal Numerical Control Programmer Relationship Specialty Start Date End Date Smith Martínez DO [address] [place] [address] PCP - General Internal Medicine 08/06/18 documented as of this encounter
--- OUTSIDE RECORDS SUMMARY | 2025-04-01 12:48 | XMS_ITS | Encounter Summary ---
Author Organization [facility] Address [address] [facility] Attn: [place] [address] Care Team Providers Care Relationship Assoc Name Role Phone Smith Martínez DO Primary Care Provide r Encounter Details Date Type Department Care Team (Late st Contact Info) Description 08/12/2006 Outpatient Historical Christiano Ramírez MD NO ADDRESS ON FILE Social History Tobacco Use Types Packs/Day Years Used Date Smoking Tobacco: Never Assessed Comments Unknown Sex and Gender Information Value Date Recorded Sex Assigned at Not on file Legal Sex Female 6:13 AM CUTTING DEPARTMENT SUPERVISOR Gender Identity Not on file Sexual Orientation Not on file documented as of this encounter Plan of Treatment Not on file documented as of this encounter Procedures Procedure Name Priority Date/Time Associated Diagnosis Comments ALPHA FETOPROTEIN TUMOR MARKER Routine 08/12/2006 10:08 AM CUTTING DEPARTMENT SUPERVISOR documented in this encounter Results * ALPHA FETOPROTEIN TUMOR MARKER (08/12/2006 10:08 AM CUTTING DEPARTMENT SUPERVISOR) ALPHA FETOPROTEIN MATERNAL 4.3 <=8.5 ng/mL INTERFACE SYSTEM 08/12/2006 10:0 8 AM CUTTING DEPARTMENT SUPERVISOR us Christiano Ramírez MD CHEMISTRY ORDERABLES Final Resu lt INTERFACE SYSTEM Refer to clinic/hospital department documented in this encounter Visit Diagnoses Not on filedocumented in this encounter Care Teams Relationship Assoc Relationship Specialty Start Date End Date Smith Martínez DO [address] [phone] PCP - General Internal Medicine 08/06/18 documented as of this encounter
--- OUTSIDE RECORDS SUMMARY | 2025-04-01 12:48 | XMS_ITS | Encounter Summary ---
Author Organization [facility] Address [address] [place] [address] Care Team Providers Care Catering Sales Manager Name Role Phone MartínezSmith nowakhaniel Primary Care Provide r Reason for Referral * Outpatient Services (Routine) - Closed Specialty Diagnoses / Procedures Referred By Alfredo smith Referred To Contact Diagnoses Other screening mammogram Procedures MAMMO DIGITAL SCREEN BILAT Ligia Parra NP [address] [address] Phone: tel: fax: Referral ID Status Reason Start Date Expiration Date Visits Re quested Visits Authorized [id number] Closed 05/10/2010 11/06/2010 1 1 Encounter Details Date Type Department Care Team (Late st Contact Info) Description 05/10/2010 Ancillary Orders [facility] [address] [address] Ligia Parra VARNISH MAKER HELPER [address] [address] Other Screening Mammogram Social History Tobacco Use Types Packs/Day Years Used Date Smoking Tobacco: Never Alcohol Use Standard Drinks/Week Comments No 0 (1 standard drink = 0.6 oz pur e alcohol) Comments No Sex and Gender Information Value Date Recorded Sex Assigned at Not on file Legal Sex Female 6:13 AM QA INTERNSHIP Gender Identity Not on file Sexual Orientation Not on file documented as of this encounter Plan of Treatment Not on file documented as of this encounter Results * MAMMO DIGITAL SCREEN BILAT (06/14/2010 2:10 PM CDT) Anatomical Region Laterality Modality Breast Bilateral Mammography Narrative 06/15/2010 10:55 AM CDT Bilateral Mammogram Reason for Exam: Screening Comparison: Comparison is made with the prior exam(s) dated 03.03.06 Findings: Bilateral CC and MLO views were obtained. This examination was reviewed with the aid of a computer-aided detection system(CAD). The breast tissue density is average. No significant new findings since the prior mammogram(s). Procedure Note Nazario Peña MD - 06/15/2010 Bilateral Mammogram Reason for Exam: Screening Comparison: Comparison is made with the prior exam(s) dated 03.03.06 Findings: Bilateral CC and MLO views were obtained. This examination was reviewed with the aid of a computer-aided detectionsystem(CAD). The breast tissue density is average. No significant new findings since the prior mammogram(s). Ligia Parra NP MAMMO ORDERABLES Final Result documented in this encounter Visit Diagnoses Diagnosis Other screening mammogram Other screening mammogram documented in this encounter Care Teams Catering Sales Manager Relationship Specialty Start Date End Date Smith Martínez DO [address] [phone] PCP - General Internal Medicine 08/06/18 documented as of this encounter
--- OUTSIDE RECORDS SUMMARY | 2025-04-01 12:48 | XMS_ITS | Encounter Summary ---
Author Organization [facility] Address [address] [place] [address] Care Team Providers Care Retail Sales Merchandiser Name Role Phone Smith Martínez DO Primary Care Provide r Encounter Details Date Type Department Care Team (Latest Contact Info) Description 07/06/2007 Outpatient [facility] Gastroenterology[address] [place] [address] Christiano Ramírez MD NO ADDRESS ON FILE Chronic Hepatitis C without Mention of Hepatic Coma (CMS/HCC) (Primary Dx); Vaccine for Viral Hepatitis Social History Tobacco Use Types Packs/Day Years Used Date Smoking Tobacco: Never Assessed Comments Unknown Sex and Gender Information Value Date Recorded Sex Assigned at Not on file Legal Sex Female 6:13 AM MANAGER BRIDGE Gender Identity Not on file Sexual Orientation [...] hepatitis documented in this encounter Care Teams Retail Sales Merchandiser Relationship Specialty Start Date End Date Smith Martínez DO [address] [facility] [place] [address] PCP - General Internal Medicine 08/06/18 documented as of this encounter
--- OUTSIDE RECORDS SUMMARY | 2025-04-01 12:48 | XMS_ITS | Encounter Summary ---
Author Organization [facility] Address [address] [place] [address] Care Team Providers Care Manager Business Development Hospice Name Role Phone Smith Martínez DO Primary Care Provide r Encounter Details Date Type Department Care Team (Latest Contact Info) Description 06/13/2004 Outpatient Historical [facility] Sherrie Allen FNP NO ADDRESS ON FILE VIR HEP NEC W/O COMA W HEP C CHRON (CMS/HCC) (Primary Dx) Social History Tobacco Use Types Packs/Day Years Used Date Smoking Tobacco: Never Assessed Comments Unknown Sex and Gender Information Value Date Recorded Sex Assigned at Not on file Legal Sex Female 6:13 AM DRAWER IN STITCH BONDING MACHINE Gender Identity Not on file Sexual Orientation Not on file documented as of this encounter Plan of Treatment Not on file documented as of this encounter Visit Diagnoses Diagnosis Chronic hepatitis C without mention of hepatic coma (CMS/HCC)- Primary Chronic hepatitis C without mention of hepatic coma documented in this encounter Care Teams Manager Business Development Hospice Relationship Specialty Start Date End Date Smith Martínez DO [address] [place] [address] PCP - General Internal Medicine 08/06/18 documented as of this encounter
--- OUTSIDE RECORDS SUMMARY | 2025-04-01 12:48 | XMS_ITS | Encounter Summary ---
Author Organization [facility] Address [address] [place] [address] Care Team Providers Care Portrait Studio Photographer Name Role Phone Smith Martínez DO Primary Care Provide r Encounter Details Date Type Department Care Team (Latest Contact Info) Description 08/28/2004 Outpatient Historical [facility] Op[facility] [address] [place] [address] Salomón Barrios MD NO ADDRESS ON FILE REFRACTION DISORDER NOS (Primary Dx) Social History Tobacco Use Types Packs/Day Years Used Date Smoking Tobacco: Never Assessed Comments Unknown Sex and Gender Information Value Date Recorded Sex Assigned at Not on file Legal Sex Female 6:13 AM EQUIPMENT MAN Gender Identity Not on file Sexual Orientation Not on file documented as of this encounter Plan of Treatment Not on file documented as of this encounter Visit Diagnoses Diagnosis Unspecified disorder of refraction and accommodation- Primary documented in this encounter Care Teams Portrait Studio Photographer Relationship Specialty Start Date End Date Smith Martínez DO [address] [place] [address] PCP - General Internal Medicine 08/06/18 documented as of this encounter
--- OUTSIDE RECORDS SUMMARY | 2025-04-01 12:48 | XMS_ITS | Encounter Summary ---
Author Organization [facility] Address [address] [place] [address] Care Team Providers Care Wood Fence Installer Name Role Phone Smith Martínez DO Primary Care Provide r Encounter Details Date Type Department Care Team (Late st Contact Info) Description 08/10/2008 Outpatient Historical [facility] RADIOLOGY NEUROP Christiano Ramírez MD NO ADDRESS ON FILE Other Ascites Social History Tobacco Use Types Packs/Day Years Used Date Smoking Tobacco: Never Alcohol Use Standard Drinks/Week Comments No 0 (1 standard drink = 0.6 oz pur e alcohol) Comments No Sex and Gender Information Value Date Recorded Sex Assigned at Not on file Legal Sex Female 6:13 AM SHARED SERVICES MANAGER Gender Identity Not on file Sexual Orientation Not on file documented as of this encounter Plan of Treatment Not on file documented as of this encounter Procedures Procedure Name Priority Date/Time Associated Diagnosis Comments US GUIDED ASPIRATION Routine 08/10/2008 12:23 PM SHARED SERVICES MANAGER PT AND APTT Stat 08/10/2008 10:43 AM SHARED SERVICES MANAGER PLATELET COUNT Stat 08/10/2008 10:43 AM SHARED SERVICES MANAGER documented in this encounter Results * US GUIDED ASPIRATION (08/10/2008 12:23 PM SHARED SERVICES MANAGER) Anatomical Region Laterality Modality Other 08/10/2008 12:2 3 PM SHARED SERVICES MANAGER Narrative 08/31/2008 4:19 PM SHARED SERVICES MANAGER HISTORY: This is a patient referred from Dr. Christiano Ramírez with history of cirrhosis with recurrent ascites. PROCEDURE TITLE: Paracentesis. PROCEDURE: Following detailed discussion in regards to this procedure as well as its potential complications and risks with the patient and her a written consent was obtained. The patient was placed in a supine position and ultrasound was utilized to evaluate the abdomen for preferred site of centesis. The right lower quadrant was selected, marked, prepped and draped in the usual sterile fashion and local anesthesia was achieved with 1% lidocaine overlying the proposed needle course. A small stab incision was made with an 11 blade followed with the insertion of a 7 cm 18 gauge CAD Crowd centesis catheter through which approximately 5,000 mL of a clear yellow fluid was then drained via vacuum bottles. The centesis catheter was removed in its entirety, Betadine cleansed from the skin and a sterile dressing placed. The patient was then transported to the Angio recovery area for brief observation in stable and comfortable condition, having tolerated the procedure well. ama / Dictated By: Jakub Whiteside Electronically Signed By: Jakub Whiteside Date Signed: 08/11/08 AMA The above report has an incorrect signature line. Heydi Correia MD should have been listed as the co-sign physician. The signature on this addendum will serve as the official signature for the above report. jaw 08/30/08 11:55 Dictated By: Jakub Whiteside Electronically Signed By: Jakub Whiteside Electronically Signed By: Blaise Correia MD Date Signed: 08/31/08 JAW Procedure Note Jakub Whiteside, PA / Provider, Historical - 08/31/2008 HISTORY: This is a patient referred from Dr. Christiano Ramírez with history ofcirrhosis with recurrent ascites. PROCEDURE TITLE: Paracentesis. PROCEDURE: Following detailed discussion in regards to this procedure aswell as its potential complications and risks with the patient and her a written consentwas obtained. The patient was placed in a supine position and ultrasound was utilized toevaluate the abdomen for preferred site of centesis. The right lower quadrant was selected,marked, prepped and draped in the usual sterile fashion and local anesthesia was achieved with 1% lidocaineoverlying the proposed needle course. A small stab incision was made with an 11 blade followed with theinsertion of a 7 cm 18 gauge Yueh centesis catheter through which approximately 5,000 mL of a clearyellow fluid was then drained via vacuum bottles. The centesis catheter was removed in its entirety,Betadine cleansed from the skin and a sterile dressing placed. The patient was then transported to the Angiorecovery area for brief observation in stable and comfortable condition, having tolerated theprocedure well. ama / Dictated By: Jakub Whiteside Electronically Signed By: Jakub Whiteside Date Signed: 08/11/08 AMA The above report has an incorrect signature line. Leda Smith have been listed as the co-sign physician. The signature on this addendum will serve as theofficial signature for the above report. jaw 08/30/08 11:55 Dictated By: Jakub Whiteside Electronically Signed By: Jakub Whiteside Electronically Signed By: Blaise Correia MD Date Signed: 08/31/08 JAW us Christiano Ramírez MD ORDERABLES Edited * (ABNORMAL) PT AND APTT (08/10/2008 10:43 AM SHARED SERVICES MANAGER) PTT 36.6(H) 22.5 - 36.5 Secs [facility] Comment: Therapeutic Range: Hi-level PE/DVT heparin protocol 80.1 -95.0 sec Lo-level PE/DVT heparin protocol 67.1 - 80.0 sec Cardiac Heparin Protocol 67.1 - 85.0 sec Neuro Heparin Protocol 67.1 - 80.0 sec As of 11/12/2007 note change in APTT Normal Range. PROTIME 19.2(H) 12.8 - 15.8 Secs [facility] Comment:As of 2007 not e change in normal range. INR 1.5 [facility] Comment: Expected Values for INR: DVT/PE Goal INR 2.5; range 2.0 - 3.0 Valve Replacement Tissue Goal INR 2.5; range 2.0 - 3.0 Mechanical Goal INR 3.0; range 2.5 - 3.5 POST-CT Goal INR 2.5; range 2.0 - 3.0 or Goal 3.0; range 2.5 - 3.5 Atrial Fibrillation Goal INR 2.5; range 2.0 - 3.0 Ischemic Stroke Goal INR 2.5; range 2.0 - 3.0 For additional information see Guidelines for Anticoagulation available from the pharmacy James Matos. [phone] Blood specimen (specimen) 08/10/2008 10:43 AM SHARED SERVICES MANAGER 08/10/2008 10:45 AM SHARED SERVICES MANAGER Christiano Ramírez MD HEMATOLOGY ORDERABLES Edited Performing Organization Address [facility] de Phone Number INTERFACE SYSTEM Refer to clinic/hospital department [facility] CLIA# [id number] [address] [place] [address] * (ABNORMAL) PLATELET COUNT (08/10/2008 10:43 AM SHARED SERVICES MANAGER) PLATELETS 29(L) 140 - 440 K/ul [facility] Blood specimen (specimen) 08/10/2008 10:43 AM SHARED SERVICES MANAGER 08/10/2008 10:45 AM SHARED SERVICES MANAGER Christiano Ramírez MD HEMATOLOGY ORDERABLES Final Res ult Performing Organization Address [facility] Phone Number INTERFACE SYSTEM Refer to clinic/hospital department [facility] CLIA# [id number] [address] [place] [address] documented in this encounter Visit Diagnoses Diagnosis Other ascites documented in this encounter Care Teams Wood Fence Installer Relationship Specialty Start Date End Date Smith Martínez DO [address] [address] PCP - General Internal Medicine 08/06/18 documented as of this encounter
--- OUTSIDE RECORDS SUMMARY | 2025-04-01 12:48 | XMS_ITS | Encounter Summary ---
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
--- OUTSIDE RECORDS SUMMARY | 2025-04-01 12:48 | XMS_ITS | Encounter Summary ---
Author Organization [facility] Address [address] [place] [address] Care Team Providers Care Poultry Culler Name Role Phone MartínezSmith nowak Benedict Primary Care Provide r Reason for Referral * Outpatient Services (Routine) - Closed Specialty Diagnoses / Procedures Referred By Alfredo smith Referred To Contact Diagnoses Visit for screening mammogram Procedures MAMMO DIGITAL SCREEN BILAT Ligia Parra, ANURAG [address] [address] Phone: tel: fax: [facility] Pre-Registration [place] CALL TO MAKE APPOINTMENT ONLY [address] [place] [address] Phone: tel: fax: Referral ID Status Reason Start Date Expiration Date Visits Re quested Visits Authorized [id number] Closed 11/23/2015 12/23/2016 1 1 Encounter Details Date Type Department Care Team (Late st Contact Info) Description 11/23/2015 Ancillary Orders [facility] Pre-Registration [place] CALL TO MAKE APPOINTMENT ONLY [address] [place] [address] Ligia Parra CONCESSIONS MANAGER [address] [address] Visit for screening mammogram (Primary Dx) Social History Tobacco Use Types Packs/Day Years Used Date Smoking Tobacco: Never Alcohol Use Standard Drinks/Week Comments No 0 (1 standard drink = 0.6 oz pur e alcohol) Comments No Sex and Gender Information Value Date Recorded Sex Assigned at Not on file Legal Sex Female 6:13 AM HAND STONECUTTER Gender Identity Not on file Sexual Orientation Not on file Occupation Industry Job Start Date Job End Date Not on file Not on file Not on file Not on file documented as of this encounter Plan of Treatment Not on file documented as of this encounter Results * MAMMO DIGITAL SCREEN BILAT (12/07/2015 10:52 AM CDT) Anatomical Region Laterality Modality Breast Bilateral Mammography Narrative 12/08/2015 11:14 AM CDT Bilateral Mammogram Reason for Exam: Screening Comparison: Compared to: 06/15/2014 MAMMO DIGITAL SCREEN BILAT, 05/07/2013 MAMMO DIGITAL SCREEN BILAT, 04/16/2012 MAMMO DIGITAL SCREEN BILAT, 06/14/2010 MAMMO DIGITAL SCREEN BILAT Findings: Bilateral CC and MLO views were obtained. This examination was reviewed with the aid of a computer-aided detection system(CAD). The breast tissue density is average. No significant new findings since the prior mammogram(s). Ligia Parra NP MAMMO ORDERABLES Final Result documented in this encounter Visit Diagnoses Diagnosis Visit for screening mammogram- Primary Other screening mammogram Visit for screening mammogram Other screening mammogram documented in this encounter Care Teams Poultry Culler Relationship Specialty Start Date End Date Smith Martínez DO [address] [address] PCP - General Internal Medicine 08/06/18 documented as of this encounter
--- OUTSIDE RECORDS SUMMARY | 2025-04-01 12:48 | XMS_ITS | Encounter Summary ---
Author Organization [facility] Address [address] [place] [address] Care Team Providers Care Gasoline Truck Crane Operator Name Role Phone Smith Martínez DO Primary Care Provide r Encounter Details Date Type Department Care Team (Latest Contact Info) Description 12/20/2003 Outpatient Historical [facility] [address] [place] [address] [address] [place] [address] Jakub Berry MD NO ADDRESS ON FILE APLASTIC ANEMIAS NEC (Primary Dx); SPLENOMEGALY Social History Tobacco Use Types Packs/Day Years Used Date Smoking Tobacco: Never Assessed Comments Unknown Sex and Gender Information Value Date Recorded Sex Assigned at Not on file Legal Sex Female 6:13 AM KITCHEN WORKER Gender Identity Not on file Sexual Orientation Not on file documented as of this encounter Plan of Treatment Not on file documented as of this encounter Visit Diagnoses Diagnosis Other specified aplastic anemias- Primary Splenomegaly documented in this encounter Care Teams Gasoline Truck Crane Operator Relationship Specialty Start Date End Date Smith Martínez DO [address] [place] [address] PCP - General Internal Medicine 08/06/18 documented as of this encounter
--- OUTSIDE RECORDS SUMMARY | 2025-04-01 12:48 | XMS_ITS | Encounter Summary ---
Author Organization [facility] Address [address] [place] [address] Care Team Providers Care Weaver Needle Loom Name Role Phone Smith Martínez DO Primary Care Provide r Encounter Details Date Type Department Care Team (Latest Contact Info) Description 03/18/2005 Outpatient [facility] Gastroenterology[address] [place] [address] Sloan Vickers MD [address] [place] [address] [address] [place] [address] VIR HEP NEC W/O COMA W HEP C CHRON (CMS/HCC) (Primary Dx); CIRRHOSIS OF LIVER NOS (CMS/HCC) Social History Tobacco Use Types Packs/Day Years Used Date Smoking Tobacco: Never Assessed Comments Unknown Sex and Gender Information Value Date Recorded Sex Assigned at Not on file Legal Sex Female 6:13 AM PRESETTER OPERATOR Gender Identity Not on file Sexual [...] alcohol documented in this encounter Care Teams Weaver Needle Loom Relationship Specialty Start Date End Date Smith Martínez DO [address] [place] [address] PCP - General Internal Medicine 08/06/18 documented as of this encounter
--- OUTSIDE RECORDS SUMMARY | 2025-04-01 12:48 | XMS_ITS | Encounter Summary ---
Author Organization [facility] Address [address] [place] [address] Care Team Providers Care Seal Skinner Name Role Phone Smith Martínez DO Primary Care Provide r Encounter Details Date Type Department Care Team (Latest Contact Info) Description 08/12/2006 Outpatient Historical [facility] Imaging Services [address] [place] [address] Christiano Ramírez MD NO ADDRESS ON FILE Acute Hepatitis C without Mention of Hepatic Coma (Primary Dx) Social History Tobacco Use Types Packs/Day Years Used Date Smoking Tobacco: Never Assessed Comments Unknown Sex and Gender Information Value Date Recorded Sex Assigned at Not on file Legal Sex Female 6:13 AM REPAIRER FINISHED METAL Gender Identity Not on file Sexual Orientation Not on file documented as of this encounter Plan of Treatment Not on file documented as of this encounter Visit Diagnoses Diagnosis Acute hepatitis C without mention of hepatic coma(070.51)- Primary Acute hepatitis C without mention of hepatic coma documented in this encounter Care Teams Seal Skinner Relationship Specialty Start Date End Date Smith Martínez DO [address] [place] [address] PCP - General Internal Medicine 08/06/18 documented as of this encounter
--- OUTSIDE RECORDS SUMMARY | 2025-04-01 12:48 | XMS_ITS | Encounter Summary ---
Author Organization [facility] Address [address] [place] [address] Care Team Providers Care Fire Extinguisher Inspector Name Role Phone Smith Martínez DO Primary Care Provide r Encounter Details Date Type Department Care Team (Late st Contact Info) Description 07/01/2006 Outpatient Historical [facility] Gen Spec Surg [address] [address] Louie Hyman MD [address] [place] [address] Unilat Ing Hernia (Primary Dx) Social History Tobacco Use Types Packs/Day Years Used Date Smoking Tobacco: Never Assessed Comments Unknown Sex and Gender Information Value Date Recorded Sex Assigned at Not on file Legal Sex Female 6:13 AM SYSTEM SUPPORT ADMINISTRATOR Gender Identity Not on file Sexual Orientation Not on file documented as of this encounter Plan of Treatment Not on file documented as of this encounter Visit Diagnoses Diagnosis Inguinal hernia without mention of obstruction or gangrene, unilateral or unspecified, (not specified as recurrent)- Primary documented in this encounter Care Teams Fire Extinguisher Inspector Relationship Specialty Start Date End Date Smith Martínez DO [address] [facility] [address] [place] [address] PCP - General Internal Medicine 08/06/18 documented as of this encounter
--- OUTSIDE RECORDS SUMMARY | 2025-04-01 12:48 | XMS_ITS | Encounter Summary ---
Author Organization [facility] Address [address] [place] [address] Care Team Providers Care Web Analytics Developer Name Role Phone MartínezSmith nowakhaniel Primary Care Provide r Reason for Referral * Outpatient Services (Routine) - Closed Specialty Diagnoses / Procedures Referred By Alfredo smith Referred To Contact Diagnoses Visit for screening mammogram Procedures MAMMO SCREEN BILAT W OR WO CAD Ligia Parra NP [address] [address] Phone: tel: fax: Referral ID Status Reason Start Date Expiration Date Visits Re quested Visits Authorized [id number] Closed 11/26/2016 12/27/2017 1 1 Encounter Details Date Type Department Care Team ([facility] st Contact Info) Description 11/26/2016 Ancillary Orders [facility] Pre-Registration [place] CALL TO MAKE APPOINTMENT ONLY [address] [place] [address] Ligia Parra BAND SALVAGER [address] [address] Visit for screening mammogram Social History Tobacco Use Types Packs/Day Years Used Date Smoking Tobacco: Never Smokeless Tobacco: Never Alcohol Use Standard Drinks/Week Comments No 0 (1 standard drink = 0.6 oz pur e alcohol) Comments No Sex and Gender Information Value Date Recorded Sex Assigned at Not on file Legal Sex Female 6:13 AM SOFTWARE SYSTEMS ENGINEER Gender Identity Not on file Sexual Orientation Not on file Occupation Industry Job Start Date Job End Date Not on file Not on file Not on file Not on file documented as of this encounter Plan of Treatment Not on file documented as of this encounter Results * MAMMO SCREEN BILAT W OR WO CAD (12/23/2016 10:44 AM CDT) Anatomical Region Laterality Modality Breast Bilateral Mammography Narrative 12/23/2016 4:12 PM CDT Bilateral Mammogram Reason for Exam: Screening Comparison: Compared to: 12/07/2015 MAMMO DIGITAL SCREEN BILAT, 06/15/2014 MAMMO DIGITAL SCREEN BILAT, 05/07/2013 MAMMO DIGITAL SCREEN BILAT, and 04/16/2012 MAMMO DIGITAL SCREEN BILAT Findings: Bilateral CC and MLO views were obtained. This examination was reviewed with the aid of a computer-aided detection system(CAD). BREAST COMPOSITION: Scattered areas of fibroglandular density. The overall fibroglandular pattern is stable. No suspicious abnormality is identified. No significant new findings since the prior mammogram(s). Ligia Parra NP MAMMO ORDERABLES Final Result documented in this encounter Visit Diagnoses Diagnosis Visit for screening mammogram Other screening mammogram Visit for screening mammogram Other screening mammogram documented in this encounter Care Teams Web Analytics Developer Relationship Specialty Start Date End Date Smith Martínez DO [address] [address] PCP - General Internal Medicine 08/06/18 documented as of this encounter
--- OUTSIDE RECORDS SUMMARY | 2025-04-01 12:48 | XMS_ITS | Encounter Summary ---
Author Organization [facility] Address [address] [place] [address] Care Team Providers Care Compliance Analyst Name Role Phone Smith Martínez DO Primary Care Provide r Encounter Details Date Type Department Care Team (Latest Contact Info) Description 04/01/2005 Outpatient [facility] Gastroenterology[address] [place] [address] Sloan Vickers MD [address] [place] [address] [address] [place] [address] VIR HEP NEC W/O COMA W HEP C CHRON (CMS/HCC) (Primary Dx) Social History Tobacco Use Types Packs/Day Years Used Date Smoking Tobacco: Never Assessed Comments Unknown Sex and Gender Information Value Date Recorded Sex Assigned at Not on file Legal Sex Female 6:13 AM INSIDE SALES ASSISTANT Gender Identity Not on file Sexual Orientation Not on file documented as of this encounter Plan of Treatment Not on file documented as of this encounter Visit Diagnoses Diagnosis Chronic hepatitis C without mention of hepatic coma (CMS/HCC)- Primary Chronic hepatitis C without mention of hepatic coma documented in this encounter Care Teams Compliance Analyst Relationship Specialty Start Date End Date Smith Martínez DO [address] [place] [address] PCP - General Internal Medicine 08/06/18 documented as of this encounter
--- OUTSIDE RECORDS SUMMARY | 2025-04-01 12:48 | XMS_ITS | Encounter Summary ---
Author Organization [facility] Address [address] [place] [address] Care Team Providers Care Tooth Cutter Contact Wheel Name Role Phone Smith Martínez DO Primary Care Provide r Encounter Details Date Type Department Care Team (Latest Contact Info) Description 12/23/2003 Outpatient Historical [facility] Imaging Services [address] [place] [address] Jakub Berry MD NO ADDRESS ON FILE SPLENOMEGALY (Primary Dx) Social History Tobacco Use Types Packs/Day Years Used Date Smoking Tobacco: Never Assessed Comments Unknown Sex and Gender Information Value Date Recorded Sex Assigned at Not on file Legal Sex Female 6:13 AM STORE HAND Gender Identity Not on file Sexual Orientation Not on file documented as of this encounter Plan of Treatment Not on file documented as of this encounter Visit Diagnoses Diagnosis Splenomegaly- Primary documented in this encounter Care Teams Tooth Cutter Contact Wheel Relationship Specialty Start Date End Date Smith Martínez DO [address] [place] [address] PCP - General Internal Medicine 08/06/18 documented as of this encounter
--- OUTSIDE RECORDS SUMMARY | 2025-04-01 12:48 | XMS_ITS | Encounter Summary ---
Author Organization [facility] Address [address] [place] [address] Care Team Providers Care Supervisor Wood Room Name Role Phone Smith Martínez DO Primary Care Provide r Encounter Details Date Type Department Care Team ([facility] st Contact Info) Description 12/07/2003 Outpatient [facility] [address] [place] [address] Ligia Parra, FACILITIES ENGINEERING MANAGER [address] [address] SCREENING MAMM-MAILG NEOPL-OTHER (Primary Dx) Social History Tobacco Use Types Packs/Day Years Used Date Smoking Tobacco: Never Assessed Comments Unknown Sex and Gender Information Value Date Recorded Sex Assigned at Not on file 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
--- OUTSIDE RECORDS SUMMARY | 2025-04-01 12:48 | XMS_ITS | Encounter Summary ---
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
--- OUTSIDE RECORDS SUMMARY | 2025-04-01 12:48 | XMS_ITS | Encounter Summary ---
Author Organization [facility] Address [address] [place] [address] Care Team Providers Care Glass Maker Name Role Phone Smith Martínez DO Primary Care Provide r Encounter Details Date Type Department Care Team (Latest Contact Info) Description 08/05/2006 Outpatient Historical [facility] Surg [place] [address] [facility] [address] [place] [address] Mary Ruiz, BANK RUNNER NO ADDRESS ON FILE Unilat Ing Hernia (Primary Dx); Follow-Up Examination, Following Unspecified Surgery Social History Tobacco Use Types Packs/Day Years Used Date Smoking Tobacco: Never Assessed Comments Unknown Sex and Gender Information Value Date Recorded Sex Assigned at Not on file Legal Sex Female 6:13 AM EXECUTIVE ASSISTANT Gender Identity Not on file Sexual Orientation Not on file documented as of this encounter Plan of Treatment Not on file documented as of this encounter Visit Diagnoses Diagnosis Inguinal hernia without mention of obstruction or gangrene, unilateral or unspecified, (not specified as recurrent)- Primary Follow-up examination, following unspecified surgery documented in this encounter Care Teams Glass Maker Relationship Specialty Start Date End Date Smith Martínez DO [address] [place] [address] PCP - General Internal Medicine 08/06/18 documented as of this encounter
--- OUTSIDE RECORDS SUMMARY | 2025-04-01 12:48 | XMS_ITS | Encounter Summary ---
Author Organization [facility] Address [address] [place] [address] Care Team Providers Care Flow Worker Name Role Phone Smith Martínez DO Primary Care Provide r Encounter Details Date Type Department Care Team (Late st Contact Info) Description 07/29/2007 Inpatient Historical [facility] [address] 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
--- OUTSIDE RECORDS SUMMARY | 2025-04-01 12:48 | XMS_ITS | Encounter Summary ---
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) Social History Tobacco Use Types Packs/Day Years Used Date Smoking Tobacco: Never Alcohol Use Standard Drinks/Week Comments No 0 (1 standard drink = 0.6 oz pur e alcohol) Comments Unknown Sex and Gender Information Value Date Recorded Sex Assigned at Not on file 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 INR 1.4 [facility] Comment: Expected Values for INR: DVT/PE Goal INR 2.5; range 2.0 - 3.0 Valve Replacement Tissue Goal INR 2.5; range 2.0 - 3.0 Mechanical Goal INR 3.0; range 2.5 - 3.5 POST-RI Goal INR 2.5; range 2.0 - 3.0 or Goal 3.0; range 2.5 - 3.5 Atrial Fibrillation Goal INR 2.5; range 2.0 - 3.0 Ischemic Stroke Goal INR 2.5; range 2.0 - 3.0 For additional information see Guidelines for Anticoagulation available from the pharmacy Lucy Rangel Pharm D. [phone] Blood specimen (specimen) 04/14/2008 9:13 AM CDT 04/14/2008 9:15 AM CDT us Christiano Ramírez MD HEMATOLOGY ORDERABLES Final Res ult Performing Organization Address [facility] Phone Number INTERFACE SYSTEM Refer to clinic/hospital department [facility] CLIA# [id number] [address] [place] [address] * (ABNORMAL) PLATELET COUNT (04/14/2008 9:13 AM CDT) PLATELETS 45(L) 140 - 440 K/ul [facility] Blood specimen (specimen) 04/14/2008 9:13 AM CDT 04/14/2008 9:15 AM CDT Christiano Ramírez MD HEMATOLOGY ORDERABLES Final Res ult Performing Organization Address [facility] Phone Number INTERFACE SYSTEM Refer to clinic/[facility] CLIA# [id number] [address] [place] [address] * (ABNORMAL) PTT (04/14/2008 9:13 AM CDT) PTT 39.4(H) 22.5 - 36.5 Secs [facility] Comment: Therapeutic Range: Hi-level PE/DVT heparin protocol 80.1 -95.0 sec Lo-level PE/DVT heparin protocol 67.1 - 80.0 sec Cardiac Heparin Protocol 67.1 - 85.0 sec Neuro Heparin Protocol 67.1 - 80.0 sec As of 11/12/2007 note change in APTT Normal Range. Blood specimen (specimen) 04/14/2008 9:13 AM CDT 04/14/2008 9:15 AM CDT us Christiano Ramírez MD HEMATOLOGY ORDERABLES Final Res ult INTERFACE SYSTEM Refer to clinic/hospital department [facility] CLIA# [id number] [address] [place] [address] documented in this encounter Visit Diagnoses Diagnosis Other ascites Unspecified essential hypertension Thrombocytopenia, unspecified Cirrhosis of liver without mention of alcohol (CMS/HCC) Cirrhosis of liver without mention of alcohol documented in this encounter Care Teams Commercial Driver Relationship Specialty Start Date End Date Smiht Martínez DO [address] [address] PCP - General Internal Medicine 08/06/18 documented as of this encounter
--- OUTSIDE RECORDS SUMMARY | 2025-04-01 12:48 | XMS_ITS | Encounter Summary ---
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); Portal Vein Thrombosis Social History Tobacco Use Types Packs/Day Years Used Date Smoking Tobacco: Never Alcohol Use Standard Drinks/Week Comments No 0 (1 standard drink = 0.6 oz pur e alcohol) Comments Unknown Sex and Gender Information Value Date Recorded Sex Assigned at Not on file Legal Sex Female 6:13 AM 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 Comparison: None. Findings: There is a huge amount of ascites present. A large amount of thickening in the gallbladder wall is evident. Liver is small in size with a very echogenic texture. Large splenic and portal veins are present with thrombus in the portal vein. The gallbladder shows wall thickening of 7.6 mm. No echogenic or shadowing stones are present. No Dougherty's sign is present. Common bile duct is normal at 3.2 mm. Pancreas is unremarkable and is surrounded with fluid. The right kidney is unremarkable. Impression: 1. Echogenic liver findings consistent with cirrhosis. 2. 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 - Dictated By: MD Juancho St Electronically Signed By: MD Juancho StMD Date Signed: 03/16/08 SDM Procedure Note Juancho St A - 03/19/2008 Exam: US-RUQ Date/Time of Exam: Mar 16, 2008 11:02:35 AM History: 571.5 cirrhosis of liver nos. Comparison: None. Findings: There is a huge amount of ascites present. A large amount of thickening inthe gallbladder wall is evident. Liver is small in size with a very echogenic texture. Large splenic andportal veins are present with thrombus in the portal vein. The gallbladder shows wall thickening of 7.6 mm. No echogenic or shadowingstones are present. No Dougherty's sign is present. Common bile duct is normal at 3.2 mm. Pancreas is unremarkable and issurrounded with fluid. The right kidney is unremarkable. Impression: 1. Echogenic liver findings consistent with cirrhosis. 2. 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
--- OUTSIDE RECORDS SUMMARY | 2025-04-01 12:48 | XMS_ITS | Encounter Summary ---
Author Organization [facility] Address [address] [place] [address] Care Team Providers Care Sewing Teacher Name Role Phone Smith Martínez Primary Care Provide r Reason for Referral * Outpatient Services (Routine) - Closed Specialty Diagnoses / Procedures Referred By Alfredo smith Referred To Contact Diagnoses Memory changes Procedures MRI BRAIN WO CONTRAST Edward Weber MD Phone: tel: fax: [facility] Pre-Registration [place] CALL TO MAKE APPOINTMENT ONLY [address] [place] [address] Phone: tel: fax: Referral ID Status Reason Start Date Expiration Date V isits Requested Visits Authorized [id number] Closed F MC TO SCHEDULE (SGF) 06/18/2016 07/19/2017 1 1 Encounter Details Date Type Department Care Team (Latest Contact Info) Description 06/18/2016 Ancillary Orders [facility] Pre-Registration [place] CALL TO MAKE APPOINTMENT ONLY [address] [place] [address] Edward Weber MD [address] [address] Memory changes (Primary Dx) Social History Tobacco Use Types Packs/Day Years Used Date Smoking Tobacco: Never Smokeless Tobacco: Never Alcohol Use Standard Drinks/Week Comments No 0 (1 standard drink = 0.6 oz pur e alcohol) Comments No Sex and Gender Information Value Date Recorded Sex Assigned at Not on file Legal Sex Female 6:13 AM LEGAL INTERNSHIP Gender Identity Not on file Sexual Orientation Not on file Occupation Industry Job Start Date Job End Date Not on file Not on file Not on file Not on file documented as of this encounter Plan of Treatment Not on file documented as of this encounter Results * MRI BRAIN WO CONTRAST (07/01/2016 11:18 AM LEGAL INTERNSHIP) Anatomical Region Laterality Modality Head Magnetic Resonan ce 07/01/2016 11:1 8 AM LEGAL INTERNSHIP Impressions 07/01/2016 11:41 AM LEGAL INTERNSHIP IMPRESSION: Please see below. Exam: MRI BRAIN WO CONTRAST Date/Time of Exam: 07/01/2016 11:18 AM Reason For Exam: Memory changes. Technique: Multiplanar, multisequence MR images were obtained through the brain without contrast. Comparison: None. FINDINGS: Midline structures are within normal limits. Mild central and cortical volume loss and moderate leukoaraiosis underlying. There is no evidence of recent ischemic insult, mass or acute hemorrhage. There are 2 chronic microhemorrhages, one within the medullary brainstem and a second in the periphery of the left cerebellum. Major intracranial arterial flow voids are preserved. Orbits, paranasal sinuses and temporal bones are grossly unremarkable as imaged. IMPRESSION: No acute pathology. Mild central and cortical volume loss and moderate leukoaraiosis underlying. Narrative Procedure Note Herberth Jurado, - 07/01/2016 IMPRESSION IMPRESSION: Please see below. Exam: MRI BRAIN WO CONTRAST Date/Time of Exam: 07/01/2016 11:18 AM Reason For Exam: Memory changes. Technique: Multiplanar, multisequence MR images were obtained through the brain without contrast. Comparison: None. FINDINGS: Midline structures are within normal limits. Mild central and cortical volume loss and moderate leukoaraiosis underlying. There is no evidence of recent ischemic insult, mass or acute hemorrhage. There are 2 chronic microhemorrhages, one within the medullary brainstem and a second in the periphery of the left cerebellum. Major intracranial arterial flow voids are preserved. Orbits, paranasal sinuses and temporal bones are grossly unremarkable as imaged. IMPRESSION: No acute pathology. Mild central and cortical volume loss and moderate leukoaraiosis underlying. us Edward Weber MD MR ORDERABLES Final Result documented in this encounter Visit Diagnoses Diagnosis Memory changes- Primary Memory loss Memory changes Memory loss documented in this encounter Care Teams Sewing Teacher Relationship Specialty Start Date End Date Smith Martínez DO [address] [address] PCP - General Internal Medicine 08/06/18 documented as of this encounter
--- OUTSIDE RECORDS SUMMARY | 2025-04-01 12:48 | XMS_ITS | Encounter Summary ---
Author Organization [facility] Address [address] [place] [address] Care Team Providers Care Strategy Specialist Name Role Phone Smith Martínez DO Primary Care Provide r Encounter Details Date Type Department Care Team (Latest Contact Info) Description 12/07/2002 Outpatient [facility] Gastroenter[facility] [place] [phone] Nilton Samaniego MD [address] [facility] [address] [place] [address] DIARRHEA NOS (Primary Dx) Social History Tobacco Use Types Packs/Day Years Used Date Smoking Tobacco: Never Assessed Comments Unknown Sex and Gender Information Value Date Recorded Sex Assigned at Not on file 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
--- OUTSIDE RECORDS SUMMARY | 2025-04-01 12:48 | XMS_ITS | Encounter Summary ---
Author Organization [facility] Address [address] [place] [address] Care Team Providers Care Clean Rice Grader And Reel Tender Name Role Phone MartínezSmith nowakhaniel Primary Care Provide r Reason for Referral * Outpatient Services (Routine) - Closed Specialty Diagnoses / Procedures Referred By Alfredo smith Referred To Contact Diagnoses Other screening mammogram Procedures MAMMO DIGITAL SCREEN BILAT Ligia Parra, SALES AND MARKETING ADMINISTRATOR [address] [address] Phone: tel: fax: [facility] Pre-Registration [place] CALL TO MAKE APPOINTMENT ONLY [address] [place] [address] Phone: tel: fax: Referral ID Status Reason Start Date Expiration Date V isits Requested Visits Authorized [id number] Closed F MC TO SCHEDULE (SGF) 04/29/2013 05/30/2014 1 1 Encounter Details Date Type Department Care Team (Late st Contact Info) Description 04/29/2013 Ancillary Orders [facility] Pre-Registration [place] CALL TO MAKE APPOINTMENT ONLY [address] [place] [address] Ligia Parra, SALES AND MARKETING ADMINISTRATOR [address] [address] Other screening mammogram (Primary Dx) Social History Tobacco Use Types Packs/Day Years Used Date Smoking Tobacco: Never Alcohol Use Standard Drinks/Week Comments No 0 (1 standard drink = 0.6 oz pur e alcohol) Comments No Sex and Gender Information Value Date Recorded Sex Assigned at Not on file 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 Gender Identity Not on file Sexual Orientation Not on file Occupation Industry Job Start Date Job End Date Not on file Not on file Not on file Not on file documented as of this encounter Plan of Treatment Not on file documented as of this encounter Results * MAMMO DIGITAL SCREEN BILAT (05/07/2013 2:15 PM CDT) Anatomical Region Laterality Modality Breast Bilateral Mammography Narrative 05/10/2013 10:46 AM CDT Bilateral Mammogram Reason for Exam: Screening Comparison: Compared to: 04/16/2012 MAMMO DIGITAL SCREEN BILAT, 06/14/2010 MAMMO DIGITAL SCREEN BILAT 7.10.06 Findings: Bilateral CC and MLO views were obtained. This examination was reviewed with the aid of a computer-aided detection system(CAD). The breast tissue density is average. No significant new findings since the prior mammogram(s). Procedure Note Sherrie Arambula MD - 05/10/2013 Bilateral Mammogram Reason for Exam: Screening Comparison: Compared to: 04/16/2012 MAMMO DIGITAL SCREEN BILAT, 06/14/2010MAMMO DIGITAL SCREEN BILAT 7.10.06 Findings: Bilateral CC and MLO views were obtained. This examination was reviewed with the aid of a computer-aided detectionsystem(CAD). The breast tissue density is average. No significant new findings since the prior mammogram(s). Ligia Parra SALES AND MARKETING ADMINISTRATOR MAMMO ORDERABLES Final Result documented in this encounter Visit Diagnoses Diagnosis Other screening mammogram- Primary Other screening mammogram documented in this encounter Care Teams Clean Rice Grader And Reel Tender Relationship Specialty Start Date End Date Smith Martínez DO [address] [phone] PCP - General Internal Medicine 08/06/18 documented as of this encounter
--- OUTSIDE RECORDS SUMMARY | 2025-04-01 12:48 | XMS_ITS | Encounter Summary ---
Author Organization [facility] Address [address] [place] [address] Care Team Providers Care Harness Inspector Name Role Phone Smith Martínez DO Primary Care Provide r Encounter Details Date Type Department Care Team (Latest Contact Info) Description 01/09/2005 Outpatient [facility] [address] [place] [address] Bill Manjarrez MD [address] [address] HEPATITIS NOS (Primary Dx); OSTEOPOROSIS NOS Social History Tobacco Use Types Packs/Day Years Used Date Smoking Tobacco: Never Assessed Comments Unknown Sex and Gender Information Value Date Recorded Sex Assigned at Not on file 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
--- OUTSIDE RECORDS SUMMARY | 2025-04-01 12:48 | XMS_ITS | Encounter Summary ---
Author Organization [facility] Address [address] [facility] Attn: [place] [address] Care Team Providers Care Tag Machine Operator Name Role Phone Smith Martínez DO Primary Care Provide r Encounter Details Date Type Department Care Team (Late st Contact Info) Description 07/06/2007 Outpatient Historical Christiano Ramírez MD NO ADDRESS ON FILE Social History Tobacco Use Types Packs/Day Years Used Date Smoking Tobacco: Never Assessed Comments Unknown Sex and Gender Information Value Date Recorded Sex Assigned at Not on file Legal Sex Female 6:13 AM CONTINUOUS IMPROVEMENT MANAGER Gender Identity Not on file Sexual Orientation Not on file documented as of this encounter Plan of Treatment Not on file documented as of this encounter Procedures Procedure Name Priority Date/Time Associated Diagnosis Comments ALPHA FETOPROTEIN TUMOR MARKER Routine 07/06/2007 4:17 PM CONTINUOUS IMPROVEMENT MANAGER documented in this encounter Results * ALPHA FETOPROTEIN TUMOR MARKER (07/06/2007 4:17 PM CONTINUOUS IMPROVEMENT MANAGER) ALPHA FETOPROTEIN MATERNAL 3.4 <=8.5 ng/mL INTERFACE SYSTEM 07/06/2007 4:17 PM CONTINUOUS IMPROVEMENT MANAGER us Christiano Ramírez MD CHEMISTRY ORDERABLES Edited INTERFACE SYSTEM Refer to clinic/hospital department documented in this encounter Visit Diagnoses Not on filedocumented in this encounter Care Teams Tag Machine Operator Relationship Specialty Start Date End Date Smith Martínez DO [address] [facility] [address] [place] [address] PCP - General Internal Medicine 08/06/18 documented as of this encounter
--- OUTSIDE RECORDS SUMMARY | 2025-04-01 12:49 | XMS_ITS | Clinical Summary ---
Author Organization [facility] Address [address] [facility] [place] [address] Care Team Providers Care Instructional Systems Designer Name Role Phone Smith Martínez DO Primary Care Provide r Allergies Active Allergy Reactions Criticality Noted Date Comments Penicillins Hives High 03/11/2008 Medications tacrolimus (PROGRAF) 1 mg capsule Take 1 mg by mouth 2 times daily. Two tablets in a.m and one p.m. Active multivitamin (DAILY-VIKAS) tablet Take 1 Tab by mouth daily. Active ascorbic acid (VITAMIN C) 250 mg tablet Take 250 mg by mouth daily. Active cholecalciferol , Vitamin D3, (VITAMIN D3) 1,000 unit Capsule Take 4,000 Units by mouth daily . Active B INFANTIS/B ANI/B MOHIT/B BIFID (PROBIOTIC 4X ORAL) Take by mouth. Active CALCIUM CARB/MAGNESIUM OXID/D3 (CALCIUM MAGNESIUM + D ORAL) Take by mouth 2 times daily. Active METHIONINE/INOS ITOL/CHOLINE (CHOLINE-INOSIT OL-METHIONINE ORAL) Take by mouth. Active metoprolol tartrate (LOPRESSOR) 25 mg tablet Take 25 mg by mouth 2 times daily. 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 Overview (04/27/2009): Liver, kidney transplant Oliver 04/02 Liver failure 12/20/2008 Renal insufficiency 11/15/2008 JENNIFER (iron deficiency anemia) 10/04/2008 Chronic hepatitis C without mention of hepatic c annelise 05/10/2008 Other ascites 04/26/2008 Esophageal varices Overview (02/12/2008): grade 2 Gastritis and gastroduodenitis Kidney replaced [...] on file Legal Sex Female 6:13 AM GRINDER NEEDLE TIP Gender Identity Not on file Sexual Orientation Not on file Occupation Industry Job Start Date Job End Date Not on file Not on file Not on file Not on file Last Filed Vital Signs Vital Sign Reading Time Taken Comments Blood Pressure 139/61 11/09/2020 2:00 PM CDT Pulse 71 11/09/2020 2:00 PM CDT Temperature 35.6 C (96 F) 11/09/2020 2:00 PM CDT Respiratory Rate 18 11/09/2020 2:00 PM CDT Oxygen Saturation 97% 11/09/2020 2:00 PM CDT Inhaled Oxygen Concentration - - Weight 62.1 kg (137 lb) 08/01/2020 10:59 AM GRINDER NEEDLE TIP Height 160 cm (5' 3 ) 08/01/2020 10:59 AM GRINDER NEEDLE TIP Body Mass Index 24.27 08/01/2020 10:59 AM GRINDER NEEDLE TIP Plan of Treatment Health Maintenance Due Date [...] 75+ series) 2020 DIABETES ANNUAL RETINAL EXAM 04/14/2021, 08/03/2019, 01/19/2019, Additional history exists OSTEOPOROSIS SCREENING 09/16/2023 9, 07/23/2018, 07/23/2018, Additional history exists INFLUENZA VACCINE (#1) 2025 06/27/2010, 2007 COLORECTAL SCREENING Discontinued 06/18/2013, 06/18/2013, 12/07/2002 Colorectal Cancer Screening Discontinued FIT-DNA Q 3 years Discontinued FIT/FOBT Q 1 year Discontinued Flex Sig/CT Colonography Q 5 years Discontinued Procedures Procedure Name Priority Date/Time Associated Diagnosis Comments XR DEXA BONE DENSITY AXIAL 1 OR MORE SITES Routine 07/23/2018 Post-menopausal osteoporosis ENDOSCOPY, COLON, SCREENING Routine 06/18/2013 10:17 AM CDT Special screening for malignant neoplasms, colon from Last 3 Months or Most Recently Relevant to Health Maintenance Results * XR DEXA BONE DENSITY AXIAL 1 OR MORE SITES (07/23/2018) Anatomical Region Laterality Modality Other us Rakesh Lobo MD DIAGNOSTIC IMAGING ORDERABLE S Final Result from Last 3 Months or Most Recently Relevant to Health Maintenance Insurance MEDICARE PART A AND B [employer] Advance Directives For more information, please contact: [phone] * Full Code (Latest Code Status on File) Date Activated Date Inactivated Comments 06/18/2013 10:18 AM 06/18/2013 1:54 PM * Full Code Date Activated Date Inactivated Comments 03/28/2009 12:20 PM 03/29/2009 2:12 AM * Full Code Date Activated Date Inactivated Comments 03/21/2009 12:07 PM 03/22/2009 2:12 AM * Full Code Date Activated Date Inactivated Comments 03/17/2009 8:25 AM 03/18/2009 2:11 AM * Full Code Date Activated Date Inactivated Comments 03/14/2009 11:57 AM 03/15/2009 2:12 AM Care Teams Instructional Systems Designer Relationship Specialty Start Date End Date Smith Martínez DO [address] [facility] [address] [place] [address] PCP - General Internal Medicine 08/06/18
--- OUTSIDE RECORDS SUMMARY | 2025-04-01 12:49 | XMS_ITS | Encounter Summary ---
Author Organization [facility] Address [address] [place] [address] Care Team Providers Care Scarifier Operator Name Role Phone Smith Martínez DO Primary Care Provide r Encounter Details Date Type Department Care Team (Latest Contact Info) Description 12/27/2004 Outpatient [facility] Gastroenterology[address] [place] [address] Sloan Vickers MD [address] [place] [address] [address] [place] [address] VIR HEP NEC W/O COMA W HEP C CHRON (CMS/HCC) (Primary Dx); CIRRHOSIS OF LIVER NOS (CMS/HCC) Social History Tobacco Use Types Packs/Day Years Used Date Smoking Tobacco: Never Assessed Comments Unknown Sex and Gender Information Value Date Recorded Sex Assigned at Not on file Legal Sex Female 6:13 AM INSECTICIDE EXPERT Gender Identity Not on file Sexual Orientation [...] alcohol documented in this encounter Care Teams Scarifier Operator Relationship Specialty Start Date End Date Smith Martínez DO [address] [place] [address] PCP - General Internal Medicine 08/06/18 documented as of this encounter
--- OUTSIDE RECORDS SUMMARY | 2025-04-01 12:49 | XMS_ITS | Encounter Summary ---
Author Organization [facility] Address [address] [place] [address] Care Team Providers Care Advertising Copywriter Name Role Phone Smith Martínez DO Primary Care Provide r Encounter Details Date Type Department Care Team (Latest Contact Info) Description 12/12/2004 Outpatient Historical [facility] [address] [facility] [address] [place] [address] Sherrie Arambula MD NO ADDRESS ON FILE SCREENING MAMM-MAILG NEOPL-OTHER (Primary Dx) Social History Tobacco Use Types Packs/Day Years Used Date Smoking Tobacco: Never Assessed Comments Unknown Sex and Gender Information Value Date Recorded Sex Assigned at Not on file Legal Sex Female 6:13 AM PLANT ELECTRICIAN Gender Identity Not on file Sexual Orientation Not on file documented as of this encounter Plan of Treatment Not on file documented as of this encounter Visit Diagnoses Diagnosis Other screening mammogram- Primary documented in this encounter Care Teams Advertising Copywriter Relationship Specialty Start Date End Date Smith aMrtínez DO [address] [place] [address] PCP - General Internal Medicine 08/06/18 documented as of this encounter
--- OUTSIDE RECORDS SUMMARY | 2025-04-01 12:49 | XMS_ITS | Encounter Summary ---
Author Organization [facility] Address [address] [place] [address] Care Team Providers Care Nurse School Name Role Phone Smith Martínez DO Primary Care Provide r Encounter Details Date Type Department Care Team (Latest Contact Info) Description 12/12/2004 Outpatient [facility] Breast Center [facility] [address] [place], [place] [id number] Amauri Hendrix MD NO ADDRESS ON FILE SCREENING MAMM-MAILG NEOPL-OTHER (Primary Dx) Social History Tobacco Use Types Packs/Day Years Used Date Smoking Tobacco: Never Assessed Comments Unknown Sex and Gender Information Value Date Recorded Sex Assigned at Not on file Legal Sex Female 6:13 AM RECORDER HELPER SEISMOGRAPH Gender Identity Not on file Sexual Orientation Not on file documented as of this encounter Plan of Treatment Not on file documented as of this encounter Visit Diagnoses Diagnosis Other screening mammogram- Primary documented in this encounter Care Teams Nurse School Relationship Specialty Start Date End Date Smith Martínez DO [address] [place] [address] PCP - General Internal Medicine 08/06/18 documented as of this encounter
--- OUTSIDE RECORDS SUMMARY | 2025-04-01 12:49 | XMS_ITS | Encounter Summary ---
Author Organization [facility] Address [address] [place] [address] Care Team Providers Care Office Secretary Name Role Phone Smith Martínez DO Primary Care Provide r Encounter Details Date Type Department Care Team ([facility] Contact Info) Description 12/12/2004 Outpatient Historical [facility] Ligia Parra, TAX COMPLIANCE AGENT [address] [address] Social History Tobacco Use Types Packs/Day Years Used Date Smoking Tobacco: Never Assessed Comments Unknown Sex and Gender Information Value Date Recorded Sex Assigned at Not on file Legal Sex Female 6:13 AM GORING CUTTER Gender Identity Not on file Sexual Orientation Not on file documented as of this encounter Plan of Treatment Not on file documented as of this encounter Visit Diagnoses Not on filedocumented in this encounter Care Teams Office Secretary Relationship Specialty Start Date End Date Smith Martínez DO [address] [facility] 1 [place] [id number] PCP - General Internal Medicine 08/06/18 documented as of this encounter
--- OUTSIDE RECORDS SUMMARY | 2025-04-01 12:49 | XMS_ITS | Encounter Summary ---
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) Social History Tobacco Use Types Packs/Day Years Used Date Smoking Tobacco: Never Assessed Comments Unknown Sex and Gender Information Value Date Recorded Sex Assigned at Not on file Legal Sex Female 6:13 AM DISTRIBUTION LINEMAN Gender Identity Not on file Sexual Orientation Not on file documented as of this encounter Plan of Treatment Not on file documented as of this encounter Visit Diagnoses Diagnosis Cirrhosis of liver without mention of alcohol (CMS/HCC)- Primary Cirrhosis of liver without mention of alcohol documented in this encounter Care Teams Wood Patternmaker Relationship Specialty Start Date End Date Smith Martínez DO [address] [place] [address] PCP - General Internal Medicine 08/06/18 documented as of this encounter
--- OUTSIDE RECORDS SUMMARY | 2025-04-01 12:49 | XMS_ITS | Encounter Summary ---
Author Organization [facility] Address [address] [place] [address] Care Team Providers Care Straight Knife Cutter Machine Name Role Phone Smith Martínez DO Primary Care Provide r Encounter Details Date Type Department Care Team (Latest Contact Info) Description 03/16/2007 Outpatient [facility] Gastroenterology- [address] [place] [address] Christiano Ramírez MD NO ADDRESS ON FILE Chronic Hepatitis C without Mention of Hepatic Coma (CMS/HCC) (Primary Dx) Social History Tobacco Use Types Packs/Day Years Used Date Smoking Tobacco: Never Assessed Comments Unknown Sex and Gender Information Value Date Recorded Sex Assigned at Not on file Legal Sex Female 6:13 AM BEHAVIORAL HEALTH DIRECTOR Gender Identity Not on file Sexual Orientation Not on file documented as of this encounter Plan of Treatment Not on file documented as of this encounter Visit Diagnoses Diagnosis Chronic hepatitis C without mention of hepatic coma (CMS/HCC)- Primary Chronic hepatitis C without mention of hepatic coma documented in this encounter Care Teams Straight Knife Cutter Machine Relationship Specialty Start Date End Date Smith Martínez DO [address] [facility] 1 [place] [phone] PCP - General Internal Medicine 08/06/18 documented as of this encounter
--- OUTSIDE RECORDS SUMMARY | 2025-04-01 12:49 | XMS_ITS | Encounter Summary ---
Author Organization [facility] Address [address] [place] [address] Care Team Providers Care Alarm Signal Operator Name Role Phone Smith Martínez DO Primary Care Provide r Encounter Details Date Type Department Care Team (Latest Contact Info) Description 11/28/2004 Outpatient Historical [facility] Cardiovascular Services [address] [place] [address] Sloan Vickers MD [address] [place] [address] [address] [place] [address] CHEST PAIN NOS (Primary Dx) Social History Tobacco Use Types Packs/Day Years Used Date Smoking Tobacco: Never Assessed Comments Unknown Sex and Gender Information Value Date Recorded Sex Assigned at Not on file Legal Sex Female 6:13 AM TOOL AND DIE MAKER Gender Identity Not on file Sexual Orientation Not on file documented as of this encounter Plan of Treatment Not on file documented as of this encounter Visit Diagnoses Diagnosis Chest pain, unspecified- Primary documented in this encounter Care Teams Alarm Signal Operator Relationship Specialty Start Date End Date Smith Martínez DO [address] [place] [address] PCP - General Internal Medicine 08/06/18 documented as of this encounter
--- OUTSIDE RECORDS SUMMARY | 2025-04-01 12:49 | XMS_ITS | Encounter Summary ---
Author Organization [facility] Address [address] [place] [address] Care Team Providers Care Outpatient Receptionist Name Role Phone Smith Martínez DO Primary Care Provide r Encounter Details Date Type Department Care Team (Latest Contact Info) Description 01/09/2005 Outpatient [facility] Gastroenterology[address] [place] [address] Sloan Vickers MD [address] [place] [address] [address] [place] [address] VIR HEP NEC W/O COMA W HEP C CHRON (CMS/HCC) (Primary Dx); CIRRHOSIS OF LIVER NOS (CMS/HCC) Social History Tobacco Use Types Packs/Day Years Used Date Smoking Tobacco: Never Assessed Comments Unknown Sex and Gender Information Value Date Recorded Sex Assigned at Not on file Legal Sex Female 6:13 AM PACKING ROOM WORKER Gender Identity Not on file Sexual [...] alcohol documented in this encounter Care Teams Outpatient Receptionist Relationship Specialty Start Date End Date Smith Martínez DO [address] [place] [address] PCP - General Internal Medicine 08/06/18 documented as of this encounter
--- OUTSIDE RECORDS SUMMARY | 2025-04-01 12:49 | XMS_ITS | Encounter Summary ---
Author Organization [facility] Address [address] [place] [address] Care Team Providers Care Drill Hand Name Role Phone Smith Martínez DO Primary Care Provide r Encounter Details Date Type Department Care Team (Latest Contact Info) Description 12/12/2004 Outpatient [facility] Gastroenterology[address] [place] [address] Sloan Vickers MD [address] [place] [address] [address] [place] [address] VIR HEP NEC W/O COMA W HEP C CHRON (CMS/HCC) (Primary Dx); CIRRHOSIS OF LIVER NOS (CMS/HCC) Social History Tobacco Use Types Packs/Day Years Used Date Smoking Tobacco: Never Assessed Comments Unknown Sex and Gender Information Value Date Recorded Sex Assigned at Not on file Legal Sex Female 6:13 AM ASSEMBLY MACHINE OFFBEARER Gender Identity Not on file Sexual Orientation [...] alcohol documented in this encounter Care Teams Drill Hand Relationship Specialty Start Date End Date Smith Martínez DO [address] [place] [address] PCP - General Internal Medicine 08/06/18 documented as of this encounter
--- OUTSIDE RECORDS SUMMARY | 2025-04-01 12:49 | XMS_ITS | Encounter Summary ---
Author Organization [facility] Address [address] [place] [address] Care Team Providers Care Meter Readers Supervisor Name Role Phone Smith Martínez DO Primary Care Provide r Encounter Details Date Type Department Care Team (Latest Contact Info) Description 11/28/2004 Outpatient Historical [facility] Sherrie Allen FNP NO ADDRESS ON FILE VIR HEP NEC W/O COMA W HEP C CHRON (CMS/HCC) (Primary Dx); ANEMIA NEC; CHEST PAIN NOS Social History Tobacco Use Types Packs/Day Years Used Date Smoking Tobacco: Never Assessed Comments Unknown Sex and Gender Information Value Date Recorded Sex Assigned at Not on file Legal Sex Female 6:13 AM FISH FILLETER Gender Identity Not on file Sexual Orientation Not on file documented as of this encounter Plan of Treatment Not on file documented as of this encounter Visit Diagnoses Diagnosis Chronic hepatitis C without mention of hepatic coma (CMS/HCC)- Primary Chronic hepatitis C without mention of hepatic coma Other specified anemias Chest pain, unspecified documented in this encounter Care Teams Meter Readers Supervisor Relationship Specialty Start Date End Date Smith Martínez DO [address] [place] [address] PCP - General Internal Medicine 08/06/18 documented as of this encounter
--- OUTSIDE RECORDS SUMMARY | 2025-04-01 12:49 | XMS_ITS | Encounter Summary ---
Author Organization [facility] Address [address] [place] [address] Care Team Providers Care Manager Construction Name Role Phone Smith Martínez DO Primary Care Provide r Encounter Details Date Type Department Care Team (Latest Contact Info) Description 12/27/2004 Outpatient Historical [facility] Imaging Services [address] [place] [address] Amauri Hendrix MD NO ADDRESS ON FILE JOINT PAIN-PELVIS (Primary Dx) Social History Tobacco Use Types Packs/Day Years Used Date Smoking Tobacco: Never Assessed Comments Unknown Sex and Gender Information Value Date Recorded Sex Assigned at Not on file Legal Sex Female 6:13 AM LANDING MAN Gender Identity Not on file Sexual Orientation Not on file documented as of this encounter Plan of Treatment Not on file documented as of this encounter Visit Diagnoses Diagnosis Pain in joint, pelvic region and thigh- Primary documented in this encounter Care Teams Manager Construction Relationship Specialty Start Date End Date Smith Martínez DO [address] [place] [address] PCP - General Internal Medicine 08/06/18 documented as of this encounter
--- NOTE | 2025-04-01 13:17 | XR_ITS ---
WS: [id number] XR chest 1V portable [id number] REASON FOR EXAM: chest pain FINDINGS: Mild tortuosity and ectasia of the ascending aorta and aortic arch. Mild tortuosity of the descending thoracic aorta. Cardiomegaly. Mitral valve annulus calcification. Mild central pulmonary venous congestion. No pulmonary edema. Blunting of the left costophrenic angle and atelectatic changes in the left lung base. Moderate right pleural effusion. Presumed, compressive atelectasis of right lower lung. The most recent examination is from 08/11/2024. There was a similar right pleural effusion at that time and somewhat smaller left pleural effusion. XR/XR chest 1V portable [id number] IMPRESSION: Bilateral pleural effusions larger on the right Compressive atelectasis in both lower lobes. Cardiac enlargement with calcified mitral valve annulus.
--- NOTE | 2025-04-01 13:21 | W.ED.CHESTPA ---
HPI - Chest Pain General: Chief Complaint: Chest Pain Stated Complaint: chest pressure Time Seen by Provider: 04/01/25 13:16 History of Present Illness: 79-year-old female with a history of left MCA stroke, left ventricular hypertrophy, diastolic heart failure, pulmonary hypertension, hypertension, atrial fibrillation and chronic anticoagulation on Eliquis who presents to the emergency room with intermittent chest pain and worsening shortness of breath. She said last night she developed severe orthopnea and had to raise her bed up and sleeps sitting up. She does not remember history of heart failure but she has it listed in her history. She has had some mild cough. No abdominal pain. No vomiting. No focal motor deficits. Related Data Home Medications ?Medication ?Instructions ?Recorded ?Confirmed multivitamin 1 tab PO BID 11/02/19 03/28/25 Dr Noel Probiotics 1 cap PO BID 07/09/21 03/28/25 [facility] Vitamins 1 cap PO DAILY 07/09/21 03/28/25 ascorbic acid (vitamin C) 500 mg 500 mg PO BID 05/26/23 03/28/25 capsule cholecalciferol (vitamin D3) 50 5,000 unit PO DAILY 05/26/23 03/28/25 mcg (2,000 unit) capsule magnesium 200 mg tablet 100 mg PO DAILY 05/26/23 03/28/25 omeprazole 40 mg capsule,delayed 40 mg PO DAILY 03/01/24 03/28/25 release omega-3 fatty acids-fish oil 684 1 cap PO DAILY 05/25/24 03/28/25 mg-1,200 mg capsule,delayed release tacrolimus 1 mg capsule, 2 mg PO BID 08/02/24 03/28/25 immediate-release furosemide 40 mg tablet mg PO 12/01/24 03/28/25 levothyroxine 50 mcg tablet mcg PO 12/01/24 03/28/25 Previous Rx's ?Medication ?Instructions ?Recorded Sole supports #1 ea 05/25/24 apixaban 5 mg tablet (Eliquis) 5 mg PO BID #180 tabs 08/23/24 metoprolol tartrate 25 mg tablet 25 mg PO BID #60 tabs 08/23/24 potassium chloride 10 mEq 10 meq PO .prn #30 caps 08/23/24 capsule,extended release amlodipine 10 mg tablet 10 mg PO DAILY #90 tabs 09/14/24 memantine 10 mg tablet 10 mg PO BID #180 tabs 12/14/24 flecainide 50 mg tablet 50 mg PO Q8H #60 tabs 03/28/25 Allergies Allergy/AdvReac Type Severity Reaction Status Date / Time ezetimibe (From Zetia) Allergy ADR-Headach Verified 03/28/25 10:01 e Penicillins Allergy rash Verified 03/28/25 10:01 rivaroxaban (From Xarelto) Allergy ADR-Muscle Verified 03/28/25 10:01 Pain Srdrvcd-NUJ-IaV Reductase Allergy ALGY-Joint Verified 03/28/25 10:01 Inhibitor Pain Review of Systems Narrative: Constitutional symptoms: Negative except as documented in HPI. Skin symptoms: Negative except as documented in HPI. Eye symptoms: Negative except as documented in HPI. ENMT symptoms: Negative except as documented in HPI. Respiratory symptoms: Negative except as documented in HPI. Cardiovascular symptoms: Negative except as documented in HPI. Gastrointestinal symptoms: Negative except as documented in HPI. Genitourinary symptoms: Negative except as documented in HPI. Musculoskeletal symptoms: Negative except as documented in HPI. Neurologic symptoms: Negative except as documented in HPI. Psychiatric symptoms: Negative except as documented in HPI. Endocrine symptoms: Negative except as documented in HPI. PFSH ED PFSH: Medical History (Updated 04/01/25 @ 14:57 by Yara Becker MD) CVA (cerebral vascular accident) LVH (left ventricular hypertrophy) Palpitations Hyperlipidemia PVC (premature ventricular contraction) Hypertension Surgical History Kidney transplant recipient Liver transplant recipient On tacrolimus, flecainide discontinued because of drug interaction Kidney transplant recipient Family History Mother Stroke Hypertension Family/Other Cancer Social History Smoking and tobacco/nicotine status: never used tobacco/nicotine Alcohol intake: never Substance/Drug Use: never Current occupational status: retired Physical Exam Narrative: EXAM NARRATIVE: General: Alert, no acute distress. Skin: Warm, dry. Head: Normocephalic, atraumatic. Neck: Supple, trachea midline. Eye: Extraocular movements are intact. Ears, nose, mouth and throat: mucosa moist. Cardiovascular: Irregular, tachycardic initially, Normal peripheral perfusion. Respiratory: Diminished breath sounds at the bases. Increased work of breathing with exertion Gastrointestinal: Soft, Nontender, Non distended Musculoskeletal: Normal ROM, no deformity. Neurological: Alert and oriented, No focal neurological deficit observed. Psychiatric: Cooperative, appropriate mood & affect. Course Vital Signs: Vital signs: Vital Signs Temperature 98.2 F 04/01/25 12:51 Pulse Rate 98 04/01/25 14:08 Respiratory Rate 19 H 04/01/25 14:08 Blood Pressure 115/81 04/01/25 14:08 Pulse Oximetry 91 04/01/25 14:08 Oxygen Delivery Me thod Room Air 04/01/25 14:08 MDM - Chest Pain Medical Decision Making Differential diagnosis for patient with chest pain and shortness of breath includes but is not limited to and based on the above HPI, review of systems and physical exam: Pneumonia. Bronchitis. Asthma or COPD with acute exacerbation. Acute coronary syndrome / [place]. Pulmonary embolism. Anxiety. Congestive heart failure. Viral infections including influenza and Covid-19. Atrial fibrillation. Anxiety. Pleural effusion. Pneumothorax. Orders placed to evaluate differential diagnosis based on the above differential, HPI and physical exam EKG: Time 1248. Rate 103. Atrial fibrillation with rapid ventricular response, nonspecific ST-T changes, PVCs, This was reviewed and interpreted by myself the ER physician at 1255 Chest x-ray: Bilateral pleural effusions right greater than left. Compressive atelectasis in both lower lobes. Cardiac enlargement. Calcified mitral valve. This was reviewed and interpreted by myself the emergency room physician. I also reviewed the radiology report. Lab Review: Laboratory results were reviewed and interpreted by myself the emergency room physician. No leukocytosis. No anemia. No renal failure. Potassium is a little low at 3.4. proBNP is elevated today and a few days ago over her baseline. It is almost 4000 now. I reviewed the patient's medical record. Reexamination: Patient remained stable. No increased work of breathing. No altered mental status. No focal motor deficits. Heart rate has come down a little bit. Consultation: I spoke with Dr. Priest who is on-call for the hospitalist service and agrees to admission. Assessment and plan: Urinary tract infection Generalized weakness CHF exacerbation ?IV cefepime and IV Lasix in the emergency room. -I discussed the patient with the hospitalist on-call who is admitting the patient. - Discussed findings and plan with patient. Answered any questions. - All laboratory values were reviewed and interpreted personally by myself, the ER physician - All imaging was reviewed and interpreted personally by myself, the ER physician. - Evaluation and treatment of this problem were appropriate in the emergency setting Lab Data 04/01/25 13:28 04/01/25 13:28 Radiology Impressions Chest X-Ray 04/01/25 13:17 IMPRESSION: Bilateral pleural effusions larger on the right Compressive atelectasis in both lower lobes. Cardiac enlargement with calcified mitral valve annulus. Laboratory Results WBC 6.76 10^3/uL (3.29-11.43) 04/01/25 13:28 RBC 3.72 10^6/uL (3.85-5.65) L 04/01/25 13:28 Hgb 11.20 g/dL (11.27-16.99) L 04/01/25 13:28 Hct 33.0 % (36-47) L 04/01/25 13:28 MCV 88.7 fl (85-98) 04/01/25 13:28 MCH 30.1 pg (27-33) 04/01/25 13:28 MCHC 33.9 g/dL (30-55) 04/01/25 13:28 RDW 13.9 % (12.1-15.1) 04/01/25 13:28 Plt Count 165 10^3/cmm (157-399) 04/01/25 13:28 MPV 9.8 fL (7.4-10.4) 04/01/25 13:28 Neut % (Auto) 79.2 % 04/01/25 13:28 Lymph % (Auto) 14.5 % 04/01/25 13:28 Posey % (Auto) 5.2 % 04/01/25 13:28 Eos % (Auto) 0.7 % 04/01/25 13:28 Baso % (Auto) 0.3 % 04/01/25 13:28 Neut # (Auto) 5.35 10^3/uL (1.8-7.7) 04/01/25 13:28 Lymph # (Auto) 1.0 10^3/uL (0.8-4.8) 04/01/25 13:28 Posey # (Auto) 0.4 10^3/uL (0.2-0.9) 04/01/25 13:28 Eos # (Auto) 0.1 10^3/uL (0.0-0.8) 04/01/25 13:28 Baso # (Auto) 0.0 10^3/uL (0.0-0.1) 04/01/25 13:28 Nucleated RBC % (auto) 0 % 04/01/25 13:28 Nucleated RBCs # 0.0 /100WBC 04/01/25 13:28 Sodium 134 mmol/L (136-145) L 04/01/25 13:28 Potassium 3.4 mmol/L (3.5-5.1) L 04/01/25 13:28 Chloride 96 mmol/L (98-107) L 04/01/25 13:28 Carbon Dioxide 24 mmol/L (22-29) 04/01/25 13:28 Anion Gap 17.4 (5-19) 04/01/25 13:28 BUN 14 mg/dL (8-23) 04/01/25 13:28 Creatinine 0.7 mg/dL (0.5-0.9) 04/01/25 13:28 GFR Calculation Not Reportable 04/01/25 13:28 Glucose 122 mg/dL (65-115) H 04/01/25 13:28 Calculated Osmolality 280 mOsm/kg (285-295) L 04/01/25 13:28 Lactic Acid 0.9 mmol/L (0.5-2.2) 04/01/25 13:28 Calcium 8.8 mg/dL (8.5-10.5) 04/01/25 13:28 Total Bilirubin 0.7 mg/dL (0.15-1.2) 04/01/25 13:28 AST 27 U/L (0-32) 04/01/25 13:28 ALT 22 U/L (0-33) 04/01/25 13:28 Alkaline Phosphatase 121 U/L (35-105) H 04/01/25 13:28 Troponin T Baseline 8 ng/L (0-10) 04/01/25 13:28 C-Reactive Protein 19.7 mg/L (0.0-4.9) H 04/01/25 13:28 NT-Pro-B Natriuret Pep 3898 pg/mL (0-450) H 04/01/25 13:28 Total Protein 6.4 g/dL (6.6-8.7) L 04/01/25 13:28 Albumin 4.0 g/dL (3.5-5.2) 04/01/25 13:28 Globulin 2.4 g/dL (1.3-4.6) 04/01/25 13:28 Urine Color Dark yellow (Yellow) A 04/01/25 14:00 Urine Appearance Cloudy (CLEAR) A 04/01/25 14:00 Urine pH 7.0 (5-7) 04/01/25 14:00 Ur Specific Story 1.010 (1.005-1.030) 04/01/25 14:00 Urine Protein Negative (Negative) 04/01/25 14:00 Urine Glucose (UA) Negative (Normal) 04/01/25 14:00 Urine Ketones Trace (Negative) 04/01/25 14:00 Urine Blood Negative (Negative) 04/01/25 14:00 Urine Nitrate Negative (Negative) 04/01/25 14:00 Urine Bilirubin Negative (Negative) 04/01/25 14:00 Urine Urobilinogen 1.0 mg/dL (Negative) 04/01/25 14:00 Ur Leukocyte Esterase 3+ (Negative) A 04/01/25 14:00 Urine RBC 0-2 /hpf (0-2) 04/01/25 14:00 Urine WBC >100 /hpf (0-5) H 04/01/25 14:00 Ur Squamous Epith Cells 0-5 /hpf (0-5) 04/01/25 14:00 Amorphous Sediment Not Reportable 04/01/25 14:00 Urine Bacteria None seen /hpf (NONE) 04/01/25 14:00 Hyaline Casts 1.21 /lpf 04/01/25 14:00 All radiology interpretation(s) finalized by discharge Discharge Plan Discharge Patient Disposition: Admitted As Inpatient Clinical Impression: Acute exacerbation of congestive heart failure Condition: Stable Coding Level of Care Code ED Rod Pointer for Brenda Garrett
[2025-04-01 13:34] LABS: Hematocrit 33.0 % (36-47); Hemoglobin 11.20 g/dL (11.27-16.99); Mean Corpuscular HGB Conc 33.9 g/dL (30-55); Mean Corpuscular Hemoglobin 30.1 pg (27-33); Mean Corpuscular Volume 88.7 fl (85-98); Nucleated Red Blood Cells % 0 %; Platelet Count 165 10^3/cmm (157-399); Red Blood Count 3.72 10^6/uL (3.85-5.65); White Blood Count 6.76 10^3/uL (3.29-11.43)
[2025-04-01 14:03] LABS: Lactic Sepsis W/Reflex 0.9 mmol/L (0.5-2.2)
[2025-04-01 14:05] LABS: Troponin(5th) Baseline 8 ng/L (0-10)
[2025-04-01 14:12] LABS: Alanine Aminotransferase 22 U/L (0-33); Albumin Level 4.0 g/dL (3.5-5.2); Alkaline Phosphatase 121 U/L (35-105); Anion Gap 17.4 (5-19); Aspartate Amino Transferase 27 U/L (0-32); Blood Urea Nitrogen 14 mg/dL (8-23); Calcium 8.8 mg/dL (8.5-10.5); Carbon Dioxide 24 mmol/L (22-29); Chloride 96 mmol/L (98-107); Creatinine Clr Calc Pharmacy 52.8002; Globulin 2.4 g/dL (1.3-4.6); Glucose 122 mg/dL (65-115); NT Pro B Type Natriuretic Pept 3898 pg/mL (0-450); Osmolality Calculated 280 mOsm/kg (285-295); Potassium 3.4 mmol/L (3.5-5.1); Sodium 134 mmol/L (136-145); Total Protein 6.4 g/dL (6.6-8.7)
[2025-04-01 14:22] LABS: Glucose Urine UA Negative (Normal); Nitrate Urine Negative (Negative); Specific Gravity, Urine 1.010 (1.005-1.030)
[2025-04-01] MEDS: cefepime 2,000 mg SDV 2000 MG IVP (15:13)
--- NOTE | 2025-04-01 15:17 | ECG_ITS ---
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: : 1945 Requested By: Yara Ruiz Order Number: [id number] Stephanie MD: HILLARY LEWIS Measurements Intervals [place] Rate: 95 P: 0 OK: 0 QRS: -17 QRSD: 153 T: 118 QT: 424 QTc: 535 Interpretive Statements ATRIAL FIBRILLATION LEFT BUNDLE BRANCH BLOCK [120+ ms QRS DURATION, 80+ ms Q/S IN V1/V2, 85+ ms R IN I/aVL/V5/V6] Compared to ECG 04/01/2025 12:48:33 Ventricular premature complex(es) no longer present Aberrant conduction of supraventricular beat(s) no longer present Myocardial infarct finding no longer present T-wave abnormality no longer present Possible ischemia no longer present Electronically Signed On 04-05-2025 20:04:15 CDT by HILLARY LEWIS [email or web address]
[2025-04-01] MEDS: pantoprazole 40 mg SDV IVP (15:20)
[2025-04-01] MEDS: heparin 5,000 unit/mL INJ 1 mL 5000 UNIT SUBCUT (15:21)
[2025-04-01] MEDS: FUROsemide 10 mg/mL SDV 4mL 40 MG IVP (15:21)
[2025-04-01 15:33] LABS: Troponin 5 2HR 7.29 ng/L (0-10)
[2025-04-01 15:34] LABS: Troponin 5 2HR Delta -0.71 ABS# (0-10)
[2025-04-01 15:41] LABS: Magnesium 1.6 mg/dL (1.7-2.3); Thyroid Stimulating Hormone 1.89 uIU/mL (0.27-4.20)
--- NOTE | 2025-04-01 17:24 | PM.HP ---
Providers/Chief Complaint Admitting Physician: Estephania Priest MD Chief Complaint: chest pressure History of Present Illness As per the retrospective notes and the patient : Echo Wright is a 79 year old female has s history of Atrial fibrillation on chronic anticoagulation, kidney and liver transplant recipient on tacrolimus for immunosuppression,chronic vertigo, CVA, hypertension, PVC, Left bundle branch block, Hyperlipidemia. Has a history of CVA. THe heart rate goes up and down from 35- 125 following with the cardiology. Presented to ER with chest heaviness associated with shortness of breath that has worsened in the past few days and developed orthopnea and PND. but did not report any recent sick contacts or travels. The patient is compliant to her medications. Her UA showed likelihood of UTI however there was no leukocytosis. Patient did not report any fever, chills or any weight loss. No abdominal pain or diarrhea. No recent headaches change in her vision. No syncope or presyncope. No skin rash Review of Systems Narrative: Constitutional symptoms: Negative except as documented in HPI. Skin symptoms: Negative except as documented in HPI. Eye symptoms: Negative except as documented in HPI. ENMT symptoms: Negative except as documented in HPI. Respiratory symptoms: Negative except as documented in HPI. Cardiovascular symptoms: Negative except as documented in HPI. Gastrointestinal symptoms: Negative except as documented in HPI. Genitourinary symptoms: Negative except as documented in HPI. Musculoskeletal symptoms: Negative except as documented in HPI. Neurologic symptoms: Negative except as documented in HPI. Psychiatric symptoms: Negative except as documented in HPI. Endocrine symptoms: Negative except as documented in HPI. Eyes: Denies: photophobia ENMT: Denies: enlarged tonsils Musc: Denies: joint warmth All/Imm: Denies: acute wheezing Medications/Allergies Home Medications ?Medication ?Instructions ?Recorded ?Confirmed ?Last Taken ?Type multivitamin 1 tab PO BID 11/02/19 04/01/25 04/01/25 08:[address] Noel Probiotics 1 cap PO BID 07/09/21 04/01/25 04/01/25 History [facility] Eye Vitamins 1 cap PO DAILY 07/09/21 04/01/25 04/01/25 History ascorbic acid (vitamin C) 500 mg 500 mg PO BID 05/26/23 04/01/25 04/01/25 08:00 History capsule cholecalciferol (vitamin D3) 50 5,000 unit PO DAILY 05/26/23 04/01/25 04/01/25 08:00 History mcg (2,000 unit) capsule magnesium 200 mg tablet 100 mg PO DAILY 05/26/23 04/01/25 04/01/25 08:00 History omeprazole 40 mg capsule,delayed 40 mg PO DAILY 03/01/24 04/01/25 04/01/25 08:00 History release Sole supports #1 ea 05/25/24 04/01/25 Unknown Rx omega-3 fatty acids-fish oil 684 1 cap PO DAILY 05/25/24 04/01/25 04/01/25 08:00 History mg-1,200 mg capsule,delayed release tacrolimus 1 mg capsule, 2 mg PO BID 08/02/24 04/01/25 04/01/25 08:00 History immediate-release apixaban 5 mg tablet (Eliquis) 5 mg PO BID #180 tabs 08/23/24 04/01/25 04/01/25 08:00 Rx metoprolol tartrate 25 mg tablet 25 mg PO BID #60 tabs 08/23/24 04/01/25 04/01/25 08:00 Rx amlodipine 10 mg tablet 10 mg PO DAILY #90 tabs 09/14/24 04/01/25 04/01/25 07:00 Rx furosemide 40 mg tablet 40 mg PO BID 12/01/24 04/01/25 04/01/25 08:00 History levothyroxine 50 mcg tablet 50 mcg PO DAILY 12/01/24 04/01/25 04/01/25 08:00 History memantine 10 mg tablet 10 mg PO BID #180 tabs 12/14/24 04/01/25 04/01/25 08:00 Rx flecainide 50 mg tablet 50 mg PO Q8H #60 tabs 03/28/25 04/01/25 04/01/25 08:00 Rx potassium chloride 10 mEq 10 meq PO DAILY 04/01/25 04/01/25 04/01/25 08:00 History capsule,extended release Allergies Allergy/AdvReac Type Severity Reaction Status Date / Time ezetimibe (From Zetia) Allergy ADR-Headach Verified 03/28/25 10:01 e Penicillins Allergy rash Verified 03/28/25 10:01 rivaroxaban (From Xarelto) Allergy ADR-Muscle Verified 03/28/25 10:01 Pain Gxgmnei-HYR-JvQ Reductase Allergy ALGY-Joint Verified 03/28/25 10:01 Inhibitor Pain PFSH Acute PFSH: Medical History (Updated 04/01/25 @ 18:22 by Estephania Priest MD) CVA (cerebral vascular accident) LVH (left ventricular hypertrophy) Palpitations Hyperlipidemia PVC (premature ventricular contraction) Hypertension Surgical History Kidney transplant recipient Liver transplant recipient On tacrolimus, flecainide discontinued because of drug interaction Kidney transplant recipient Family History Mother Stroke Hypertension Family/Other Cancer Social History Smoking and tobacco/nicotine status: never used tobacco/nicotine Alcohol intake: never Substance/Drug Use: never Current occupational status: retired Vitals/I&O/Wt Last Vital Signs Temp 98.2 F 04/01/25 12:51 Pulse 111 H 04/01/25 17:11 Resp 17 04/01/25 16:25 BP 113/76 04/01/25 16:34 Pulse Ox 91 04/01/25 16:34 O2 Del Method Room Air 04/01/25 17:11 04/01/25 04/01/25 04/01/25 06:59 14:59 22:59 Intake Total 0 / 0 Balance 0 / 0 Weight last 48 hrs Weight 68.039 kg Physical Exam Narrative: General: Alert oriented x3, patient seen having her lunch, speaking in full sentences not in distress HEENT: Normocephalic, atraumatic, EOMI, breathing at room air Cardio: Irregular rhythm, normal S1-S2, no murmurs rubs gallops, JVD normal Respiratory: Bilateral basal inspiratory crepitations without any wheezes or any other added sounds GI: Abdomen soft, nontender, nondistended, normoactive bowel sounds present all 4 quadrants, Neuro: Cranial nerves II to XII intact, strength 5/5, sensation 5/5, no gross neurological deficit Behavior: Appropriate and cooperative Extremities: Pitting edema up to shins Skin: Visible skin intact, no rashes Data 04/01/25 13:28 04/01/25 13:28 Micro: Microbiology 04/01/25 13:44 Blood Culture - Preliminary Blood SPECIMEN COLLECTED 04/01/25 13:42 Blood Culture - Preliminary Blood SPECIMEN COLLECTED A&P Assessment and plan 1. Acute exacerbation of congestive heart failure: 2. Diastolic heart failure secondary to hypertension: 3. Pulmonary hypertension: 4. Recurrent cerebrovascular accidents (CVAs): 5. Atrial fibrillation: 6. Left bundle branch block: 7. PVC (premature ventricular contraction): 8. Hypertension: 9. Tendinitis of both rotator cuffs: 10. Mild cognitive impairment with memory loss: 11. 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 Has a history of CVA. THe heart rate goes up and down from 35- 125 following with the cardiology. Presented to ER with chest heaviness associated with shortness of breath that has worsened in the past few days and developed orthopnea and PND. - Acute on chronic congestive heart failure? Patient having already diastolic dysfunction and high pulmonary artery pressure: - Repeat echo and serial troponins and EKGs- start on 40 mg IV twice daily Lasix - monitoring of renal function and electrolytes with correction accordingly - Telemetry monitoring - Continue home medications apixaban for atrial fibrillation anticoagulation 5 mg twice daily - Metoprolol 25 mg twice daily for heart rate control - Hold amlodipine meanwhile considering the blood pressure is on the softer/normal side - Adequate analgesia - Levothyroxine 50 mcg for hypothyroidism - Tacrolimus 2 mg twice daily for immunosuppression as the patient is kidney/liver transplant recipient -Memantine 10 mg daily for cognitive impairment - VTE prophylaxis: Patient on full anticoagulation with apixaban atrial fibrillation anticoagulation PDMP PDMP Reviewed: Not Reviewed Attestations Medical Necessity Statement*: The patient is stay more than 2 midnights for her management of acute on chronic heart failure Time Spent in Patient Care: Greater than 35 minutes (>than 50% of time spent in counselling and/or direct pt care on unit). The patient has been informed about her current acute condition requiring management, plan of care. The patient understands the risk and benefits and the complication without any language barrier and agreed with the plan of care I have personally and independently reviewed the patient's chart, labs and diagnostics including the imaging studies Coding Level of Care Code 14125 Diagnoses Acute exacerbation of congestive heart failure I50.9 Diastolic heart failure secondary to hypertension I11.0; I50.30 Pulmonary hypertension I27.20 Recurrent cerebrovascular accidents (CVAs) I63.9 Atrial fibrillation I48.91 Left bundle branch block I44.7 PVC (premature ventricular contraction) I49.3 Hypertension I10 Tendinitis of both rotator cuffs M75.81; M75.82 Mild cognitive impairment with memory loss G31.84 Hypothyroid E03.9
--- NOTE | 2025-04-01 18:06 | USCV_ITS ---
Kyle Echo Age: 79 Gender: F : 1945 Exam Date: 04/01/2025 18:38 Ordering Phys: Estephania Priest MD Technologist: Maxwell Brito [place] [facility] [place]: afib BP: 113 / 76 HR: 74 Rhythm: Atrial fibrillation Technical Quality: Adequate MEASUREMENTS (Male / Female) Normal Values 2D ECHO LV Diastolic Diameter PLAX 3.1 cm 4.2 - 5.9 / 3.9 - 5.3 cm IVS Diastolic Thickness 1.4 cm 0.6 - 1.0 / 0.6 - 0.9 cm IVS Systolic Thickness 1.6 cm LVPW Diastolic Thickness 1.2 cm 0.6 - 1.0 / 0.6 - 0.9 cm LVPW Systolic Thickness 1.6 cm LVOT Diameter 2.0 cm LV Ejection Fraction 2D Teich 65.1 % LV Ejection Fraction MOD 4C 71.2 % LV Ejection Fraction MOD 2C 58.2 % LV Ejection Fraction 2C AL 58.0 % LA Diameter 4.0 cm RA Systolic Volume 4C AL 56.4 ml RA Systolic Volume 4C MOD 56.7 ml LA Sys Volume AL 60.2 cm cubed LA Sys Volume Index AL 34.3 cm cubed/m squared Aorta at Sinotubular Diameter 2.2 cm IVC Diameter 1.8 cm M-MODE LA Ao Ratio MM 1.6 AV Cusp Separation MM 1.2 cm DOPPLER AV Peak Velocity 155.3 cm/s LVOT Peak Velocity 105.0 cm/s AV Area Cont Eq vti 2.5 cm squared AV Area Cont Eq pk 2.2 cm squared MV Peak Velocity 158.0 cm/s MV Area PHT 3.6 cm squared Mitral E to A Ratio 3.2 TV Peak Velocity 324.7 cm/s TR Peak Velocity 354.0 cm/s TR Peak Gradient 50.1 mmHg TR Mean Velocity 281.0 cm/s TR Mean Gradient 33.5 mmHg TR Velocity Time Integral 100.4 cm PV Peak Velocity 110.0 cm/s RV Ejection Time 0.3 s FINDINGS Left Ventricle Normal left ventricular size, systolic function and wall thickness, with no regional wall motion abnormalities. Left ventricular ejection fraction is estimated at 55 %. Grade II/IV diastolic dysfunction, moderately elevated filling pressures. Right Ventricle The right ventricle is normal in size and function. Right Atrium The right atrium is normal in size. Left Atrium Moderately increased left atrial size. Mitral Valve Moderately thickened mitral valve. Severe mitral annular calcification. No mitral valve stenosis. Trace mitral valve regurgitation. Aortic Valve Moderate aortic valve calcification.no aortic valve stenosis. Trace aortic valve regurgitation. . Tricuspid Valve Mild tricuspid valve regurgitation. Pulmonic Valve Trace pulmonary valve regurgitation. Pericardium Small pericardial effusion of no hemodynamic significant Aorta Normal ascending aorta dimension. IVC The inferior vena cava appears normal. CONCLUSIONS Normal left ventricular size, systolic function and wall thickness, with no regional wall motion abnormalities. Left ventricular ejection fraction is estimated at 55 %. Grade II/IV diastolic dysfunction, moderately elevated filling pressures. Moderately increased left atrial size. Moderately thickened mitral valve. Severe mitral annular calcification. No mitral valve stenosis. Trace mitral valve regurgitation. Moderate aortic valve calcification.no aortic valve stenosis. Trace aortic valve regurgitation. . Mild tricuspid valve regurgitation. Small pericardial effusion of no hemodynamic significance Right atrial pressure is around 5 mm of mercury. Lucinda Ferro MD (Electronically Signed) Final Date: 01 April 2025 20:23 Amended: 02 April 2025 11:06 C
[2025-04-01] MEDS: magnesium sulfate premix 2 GM/50 ML PIGGYBACK IV (18:18)
--- NOTE | 2025-04-01 19:17 | ECG_ITS ---
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1945 Requested By: Yara Ruiz Order Number: [id number] Stephanie MD: HILLARY LEWIS Measurements Intervals [place] Rate: 98 P: 0 NE: 0 QRS: -56 QRSD: 153 T: 85 QT: 426 QTc: 546 Interpretive Statements ATRIAL FLUTTER/TACHYCARDIA LEFT AXIS DEVIATION [QRS AXIS < -30] LEFT BUNDLE BRANCH BLOCK [120+ ms QRS DURATION, 80+ ms Q/S IN V1/V2, 85+ ms R IN I/aVL/V5/V6] Compared to ECG 04/01/2025 17:33:38 Left-axis deviation now present Atrial fibrillation no longer present Electronically Signed On 04-05-2025 20:06:35 CDT by HILLARY LEWIS [email or web address]
[2025-04-01 20:23] LABS: Troponin 5 6HR 8.10 ng/L (0-10); Troponin 5 6HR Delta 0.10 ng/L (0-12)
[2025-04-02] VITALS (7 sets, daily range): BP systolic 101–132; BP diastolic 63–94; PULSE 93–120; RESP 20–26; TEMP 36.1–37.1; O2SAT 90–95
[2025-04-02 02:53] LABS: Hematocrit 32.4 % (36-47); Hemoglobin 10.70 g/dL (11.27-16.99); Mean Corpuscular HGB Conc 33.0 g/dL (30-55); Mean Corpuscular Hemoglobin 30.3 pg (27-33); Mean Corpuscular Volume 91.8 fl (85-98); Nucleated Red Blood Cells % 0 %; Platelet Count 113 10^3/cmm (157-399); Red Blood Count 3.53 10^6/uL (3.85-5.65); White Blood Count 4.88 10^3/uL (3.29-11.43)
[2025-04-02 03:17] LABS: Alanine Aminotransferase 18 U/L (0-33); Albumin Level 3.6 g/dL (3.5-5.2); Alkaline Phosphatase 108 U/L (35-105); Blood Urea Nitrogen 15 mg/dL (8-23); Calcium 8.8 mg/dL (8.5-10.5); Carbon Dioxide 23 mmol/L (22-29); Chloride 102 mmol/L (98-107); Creatinine Clr Calc Pharmacy 53.4534; Globulin 2.7 g/dL (1.3-4.6); Glucose 110 mg/dL (65-115); Magnesium 2.0 mg/dL (1.7-2.3); Osmolality Calculated 285 mOsm/kg (285-295); Sodium 137 mmol/L (136-145); Total Protein 6.3 g/dL (6.6-8.7)
[2025-04-02 03:19] LABS: Anion Gap 16.0 (5-19); Aspartate Amino Transferase 26 U/L (0-32); Potassium 4.0 mmol/L (3.5-5.1)
[2025-04-02] MEDS: FUROsemide 10 mg/mL SDV 4mL 40 MG IVP ×2 (03:49→11:47)
[2025-04-02] MEDS: cefepime 1,000 mg SDV 1000 MG IVP ×2 (03:49→15:43)
--- NOTE | 2025-04-02 05:36 | PC.NURSE ---
Patient HR was jumping up into the 140. Dr Nicolas was notified. new order for one time dose of metoprolol was ordered.
--- NOTE | 2025-04-02 06:51 | PC.NURSE ---
Per Dr Nicolas 0900 dose of metoprolol not administered due to dose given at 0535.
--- NOTE | 2025-04-02 11:46 | PC.NURSE ---
Received Verbal orders from hospitalist Dr Priest gave me verbal orders to give Metoprolol 25 mg and 40 mg IVP Lasix once now and increase dose of IV Lasix to 60 mg starting at 8pm, insert richardson catheter and increase dose of Metoprolol to 50 mg BID and start 2.5 mg of Eliquis BID first dose now. All verbal orders are read back to dr Priest.
--- NOTE | 2025-04-02 14:53 | P.PN_ITS ---
Subjective 2 Subjective: The patient was seen in the morning having features of shortness of breath on lying flat. She is a little better than yesterday however still feels congestive and mild cough along with it. The patient was able to speak however felt mild shortness of breath while speaking in full sentences. No use of accessory muscles and the patient is oriented to time place and person. She is able to pee adequate amount of urine Vitals/I&O/Wt Last Vital Signs Temp 96.9 F L 04/02/25 11:28 Pulse 112 H 04/02/25 11:28 Resp 26 H 04/02/25 11:28 BP 132/74 04/02/25 11:28 Pulse Ox 94 04/02/25 11:28 O2 Del Method Nasal Cannula 04/02/25 11:28 O2 Flow Rate 2 04/02/25 11:28 04/01/25 04/02/25 04/02/25 22:59 06:59 14:59 Intake Total 290 / 290 200 / 490 440 / 440 Output Total 200 / 200 500 / 700 700 / 700 Balance 90 / 90 -300 / -210 -260 / -260 Weight last 48 hrs Weight 71.259 kg Weight 71.259 kg Weight 69.853 kg Weight 68.039 kg Physical Exam 2 Narrative: General: Alert oriented x3, having shortness of breath on lying flat HEENT: Normocephalic, atraumatic, EOMI, 3 to 4 L/min oxygen through nasal cannula saturating at 96% Cardio: Irregular rhythm, normal S1-S2, no murmurs rubs gallops, JVD raised Respiratory: Bilateral basal inspiratory crepitations at mid zones without any wheezes or any other added sounds GI: Abdomen soft, nontender, nondistended, normoactive bowel sounds present all 4 quadrants, Neuro: Cranial nerves II to XII intact, strength 5/5, sensation 5/5, no gross neurological deficit Behavior: Appropriate and cooperative Extremities: Pitting edema up to shins Skin: Visible skin intact, no rashes Urinary Catheter Management: Carmona: Cath Placed During This Visit: yes Urinary Catheter Date of Insertion: 04/02/25 Urinary Catheter Time of Insertion: 11:00 Data 04/02/25 02:07 04/02/25 02:07 Micro: Microbiology 04/01/25 13:44 Blood Culture - Preliminary Blood NEGATIVE TO DATE 04/01/25 13:42 Blood Culture - Preliminary Blood NEGATIVE TO DATE A&P Assessment and plan 1. Acute exacerbation of congestive heart failure: 2. Diastolic heart failure secondary to hypertension: 3. Pulmonary hypertension: 4. Recurrent cerebrovascular accidents (CVAs): 5. Paroxysmal atrial fibrillation: 6. Left bundle branch block: 7. PVC (premature ventricular contraction): 8. Primary hypertension: 9. Tendinitis of both rotator cuffs: 10. Mild cognitive impairment with memory loss: 11. 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 Has a history of CVA. THe heart rate goes up and down from 35- 125 following with the cardiology. Presented to ER with chest heaviness associated with shortness of breath that has worsened in the past few days and developed orthopnea and PND. - Acute on chronic congestive heart failure? Patient having already diastolic dysfunction and high pulmonary artery pressure: - Echo did not revealAny regional wall motion abnormalities. EF of 55%. Grade 2/4 diastolic dysfunction and markedly elevated filling pressures. -Stat 40 mg iv lasix today and then to start 60 mg iv twice daily -Heart rate still above 100 around 100-110, with normal blood pressure and to increase the metoprolol from 25 mg to 50 mg twice daily -Hold amlodipine meanwhile -Apixaban 2.5 mg twice daily for anticoagulation -Cardiology consult -Carmona's catheter, and adequate monitoring of intake and output. In case of any discomfort apply lidocaine topical. If the patient still feel discomfort then monitor through your renal and discontinue Carmona's catheter as per patient preference - Levothyroxine 50 mcg for hypothyroidism - Tacrolimus 2 mg twice daily for immunosuppression as the patient is kidney/liver transplant recipient -Memantine 10 mg daily for cognitive impairment - VTE prophylaxis: Patient on full anticoagulation with apixaban atrial fibrillation anticoagulation PDMP PDMP Reviewed: Not Reviewed Attestations 2 Medical Necessity Statement*: Patient will require more than 2 midnights for optimization of acute on chronic heart failure Time Spent in Patient Care: Greater than 35 minutes (>than 50% of time spent in counselling and/or direct pt care on unit) . Other Attestations: Patient condition has been discussed at length with the patient and the family, I have independently reviewed the chart labs imaging and diagnostics and EKG. The patient has been informed about her current condition and further plan of care. Agreed with the plan of care and understood without any language barrier. This documentation was created by [employer] junior mechanical engineer software. Every effort was made to ensure accuracy of junior mechanical engineer.? Any obvious errors or omissions should be clarified with the author of the document. Coding Level of Care Code 26672 Diagnoses Acute exacerbation of congestive heart failure I50.9 Diastolic heart failure secondary to hypertension I11.0; I50.30 Pulmonary hypertension I27.20 Recurrent cerebrovascular accidents (CVAs) I63.9 Paroxysmal atrial fibrillation I48.0 Atrial fibrillation type: paroxysmal Left bundle branch block I44.7 PVC (premature ventricular contraction) I49.3 Primary hypertension I10 Hypertension type: primary hypertension Tendinitis of both rotator cuffs M75.81; M75.82 Mild cognitive impairment with memory loss G31.84 Hypothyroid E03.9
--- NOTE | 2025-04-02 15:16 | PM.CONSULT ---
Providers/Reason For Consult Consulting Physician/Specialty*: Lucinda Ferro MD/cardiology Reason for Consult*: Atrial fibrillation with rapid ventricular response Acute on chronic diastolic decompensated heart failure Requesting Physician: Dr. Priest Attending Physician: Estephania Priest MD History of Present Illness History of Present Illness Echo Wright is a 79 year old female admitted with worsening of shortness of breath PND orthopnea atrial fibrillation rapid ventricle response. She was noted to be in decompensated diastolic heart failure. Despite of optimization of medicine heart rate is not under control. Today our medicine colleague has increased diuretics and metoprolol. We have been asked to assist in her care. Patient past medical history significant for CVA left ventricle hypertrophy diastolic heart failure renal and liver transplant. At 1 point she was managed on flecainide. Review of Systems Narrative: Constitutional symptoms: Negative except as documented in HPI. Skin symptoms: Negative except as documented in HPI. Eye symptoms: Negative except as documented in HPI. ENMT symptoms: Negative except as documented in HPI. Respiratory symptoms: Negative except as documented in HPI. Cardiovascular symptoms: Negative except as documented in HPI. Gastrointestinal symptoms: Negative except as documented in HPI. Genitourinary symptoms: Negative except as documented in HPI. Musculoskeletal symptoms: Negative except as documented in HPI. Neurologic symptoms: Negative except as documented in HPI. Psychiatric symptoms: Negative except as documented in HPI. Endocrine symptoms: Negative except as documented in HPI. Eyes: Denies: photophobia ENMT: Denies: enlarged tonsils Musc: Denies: joint warmth All/Imm: Denies: acute wheezing Medications/Allergies Home Medications ?Medication ?Instructions ?Recorded ?Confirmed ?Last Taken ?Type multivitamin 1 tab PO BID 11/02/19 04/01/25 04/01/25 08:[address] Noel Probiotics 1 cap PO BID 07/09/21 04/01/25 04/01/25 History [facility] Vitamins 1 cap PO DAILY 07/09/21 04/01/25 04/01/25 History ascorbic acid (vitamin C) 500 mg 500 mg PO BID 05/26/23 04/01/25 04/01/25 08:00 History capsule cholecalciferol (vitamin D3) 50 5,000 unit PO DAILY 05/26/23 04/01/25 04/01/25 08:00 History mcg (2,000 unit) capsule magnesium 200 mg tablet 100 mg PO DAILY 05/26/23 04/01/25 04/01/25 08:00 History omeprazole 40 mg capsule,delayed 40 mg PO DAILY 03/01/24 04/01/25 04/01/25 08:00 History release Sole supports #1 ea 05/25/24 04/01/25 Unknown Rx omega-3 fatty acids-fish oil 684 1 cap PO DAILY 05/25/24 04/01/25 04/01/25 08:00 History mg-1,200 mg capsule,delayed release tacrolimus 1 mg capsule, 2 mg PO BID 08/02/24 04/01/25 04/01/25 08:00 History immediate-release apixaban 5 mg tablet (Eliquis) 5 mg PO BID #180 tabs 08/23/24 04/01/25 04/01/25 08:00 Rx metoprolol tartrate 25 mg tablet 25 mg PO BID #60 tabs 08/23/24 04/01/25 04/01/25 08:00 Rx amlodipine 10 mg tablet 10 mg PO DAILY #90 tabs 09/14/24 04/01/25 04/01/25 07:00 Rx furosemide 40 mg tablet 40 mg PO BID 12/01/24 04/01/25 04/01/25 08:00 History levothyroxine 50 mcg tablet 50 mcg PO DAILY 12/01/24 04/01/25 04/01/25 08:00 History memantine 10 mg tablet 10 mg PO BID #180 tabs 12/14/24 04/01/25 04/01/25 08:00 Rx flecainide 50 mg tablet 50 mg PO Q8H #60 tabs 03/28/25 04/01/25 04/01/25 08:00 Rx potassium chloride 10 mEq 10 meq PO DAILY 04/01/25 04/01/25 04/01/25 08:00 History capsule,extended release Allergies Allergy/AdvReac Type Severity Reaction Status Date / Time ezetimibe (From Zetia) Allergy ADR-Headach Verified 03/28/25 10:01 e Penicillins Allergy rash Verified 03/28/25 10:01 rivaroxaban (From Xarelto) Allergy ADR-Muscle Verified 03/28/25 10:01 Pain Statyzu-ITM-JhL Reductase Allergy ALGY-Joint Verified 03/28/25 10:01 Inhibitor Pain Current Medications Generic Name Dose Route Start Last Admin Trade Name Clarke PRHolly Reason Stop Dose Admin Cefepime HCl 1,000 mg 04/02/25 03:00 04/02/25 03:49 Cefepime 1,000 Mg Sdv IVP 1,000 mg Q12H RADHA Administration Protocol Memantine 10 mg 04/02/25 09:00 04/02/25 09:00 Memantine 5 Mg Tablet PO 10 mg BID RADHA Administration Non-Formulary 2 each 04/02/25 10:00 04/02/25 08:59 Medication ( PO 2 each Tacrolimus 1 Mg Cap) BID@1000,2200 RADHA Administration Pantoprazole Sodium 40 mg 04/01/25 15:15 04/01/25 15:20 Pantoprazole 40 Mg Sdv IVP 40 mg Q24H RADHA Administration PFSH Acute PFSH: Medical History (Updated 04/02/25 @ 20:00 by Lucinda Ferro MD) Atrial fibrillation Atrial fibrillation CVA (cerebral vascular accident) LVH (left ventricular hypertrophy) Palpitations Hyperlipidemia PVC (premature ventricular contraction) Hypertension Surgical History Kidney transplant recipient Liver transplant recipient On tacrolimus, flecainide discontinued because of drug interaction Kidney transplant recipient Family History Mother Stroke Hypertension Family/Other Cancer Social History Smoking and tobacco/nicotine status: never used tobacco/nicotine Alcohol intake: never Substance/Drug Use: never Current occupational status: retired Dietary Habits: Current diet type/program: regular and diabetic Caffeine: Yes Caffeine intake frequency: coffee Vitals/I&O/Wt Last Vital Signs Temp 96.9 F L 04/02/25 11:28 Pulse 112 H 04/02/25 11:28 Resp 26 H 04/02/25 11:28 BP 132/74 04/02/25 11:28 Pulse Ox 94 04/02/25 11:28 O2 Del Method Nasal Cannula 04/02/25 11:28 O2 Flow Rate 2 04/02/25 11:28 04/02/25 04/02/25 04/02/25 06:59 14:59 22:59 Intake Total 200 / 490 440 / 440 Output Total 500 / 700 700 / 700 700 / 1400 Balance -300 / -210 -260 / -260 -700 / -960 Weight last 48 hrs Weight 157 lb 1.6 oz Weight 157 lb 1.6 oz Weight 154 lb Weight 150 lb Physical Exam Const: OTHER: GENERAL: Patient is alert, awake and oriented x3. HEART: Irregularly irregular S1 and S2.1/6 systolic murmur, no rub LUNGS: Inspiratory crackles in basal to mid more on left than right . CENTRAL NERVOUS SYSTEM: Grossly nonfocal. EXTREMITIES: Lower extremities with out edema bilaterally. Urinary Catheter Management: Carmona: Cath Placed During This Visit: yes Urinary Catheter Date of Insertion: 04/02/25 Urinary Catheter Time of Insertion: 11:00 Data 04/02/25 02:07 04/02/25 02:07 Micro: Microbiology 04/01/25 13:44 Blood Culture - Preliminary Blood NEGATIVE TO DATE 04/01/25 13:42 Blood Culture - Preliminary Blood NEGATIVE TO DATE A&P Assessment and plan 1. Acute exacerbation of congestive heart failure: 2. Atrial fibrillation: 3. Hypertension: Plan: Patient appeared to be in decompensated diastolic heart failure with A-fib RVR, with diuresis we would like to restore the atrial kick as she is not tolerating atrial fibrillation and may need to be restored to sinus Continue IV Lasix 60 mg twice daily as suggested by medicine colleague Continue to replenish potassium Switch patient to IV amiodarone if do not convert over next 48 hours will proceed with CJ guided electrical cardioversion by Friday Continue to monitor liver function test once started on amiodarone with history of liver transplant Monitor I's and O's closely PDMP PDMP Reviewed: Not Reviewed Consult Attestations Medical Necessity Statement: Patient require continuation hospitalization for above defined care Coding Level of Care Code Acute Code for Chg Fwd Diagnoses Acute exacerbation of congestive heart failure I50.9 Atrial fibrillation I48.91 Hypertension I10
[2025-04-02] MEDS: lidocaine 2% jelly 1 APPLIC/6 ML TUBE TOPICAL (15:43)
[2025-04-02] MEDS: pantoprazole 40 mg SDV IVP (15:43)
[2025-04-02] MEDS: amiodarone 150 MG/100 ML PREMIX 400 MG IV (16:02)
[2025-04-02] MEDS: FUROsemide 10 mg/mL SDV 4mL 60 MG IVP (18:32)
[2025-04-03] VITALS (7 sets, daily range): BP systolic 112–140; BP diastolic 77–100; PULSE 97–106; RESP 18–27; TEMP 36.1–37.2; O2SAT 91–97
[2025-04-03 02:35] LABS: Hematocrit 31.1 % (36-47); Hemoglobin 10.40 g/dL (11.27-16.99); Mean Corpuscular HGB Conc 33.4 g/dL (30-55); Mean Corpuscular Hemoglobin 29.8 pg (27-33); Mean Corpuscular Volume 89.1 fl (85-98); Nucleated Red Blood Cells % 0 %; Platelet Count 143 10^3/cmm (157-399); Red Blood Count 3.49 10^6/uL (3.85-5.65); White Blood Count 5.19 10^3/uL (3.29-11.43)
[2025-04-03 02:52] LABS: Alanine Aminotransferase 17 U/L (0-33); Albumin Level 3.6 g/dL (3.5-5.2); Alkaline Phosphatase 108 U/L (35-105); Anion Gap 15.4 (5-19); Aspartate Amino Transferase 17 U/L (0-32); Blood Urea Nitrogen 16 mg/dL (8-23); Calcium 8.4 mg/dL (8.5-10.5); Carbon Dioxide 27 mmol/L (22-29); Chloride 98 mmol/L (98-107); Creatinine Clr Calc Pharmacy 53.9596; Globulin 2.5 g/dL (1.3-4.6); Glucose 110 mg/dL (65-115); Osmolality Calculated 286 mOsm/kg (285-295); Potassium 3.4 mmol/L (3.5-5.1); Sodium 137 mmol/L (136-145); Total Protein 6.1 g/dL (6.6-8.7)
[2025-04-03] MEDS: cefepime 1,000 mg SDV 1000 MG IVP ×2 (02:55→14:42)
[2025-04-03] MEDS: FUROsemide 10 mg/mL SDV 4mL 60 MG IVP ×2 (04:46→18:49)
--- NOTE | 2025-04-03 08:05 | P.PN_ITS ---
Subjective 2 Subjective: The patient was seen in the morning doing better relative to yesterday. Able to produce urine and able to sleep overnight Today she is able to speak in full sentences without getting cough or mild shortness of breath No use of accessory muscles and the patient is oriented to time place and person. She is able to pee adequate amount of urine Vitals/I&O/Wt Last Vital Signs Temp 99.0 F 04/03/25 07:30 Pulse 106 H 04/03/25 07:30 Resp 18 04/03/25 07:30 BP 121/87 04/03/25 07:30 Pulse Ox 93 04/03/25 07:30 O2 Del Method Nasal Cannula 04/03/25 07:30 O2 Flow Rate 2 04/03/25 07:30 04/02/25 04/03/25 04/03/25 22:59 06:59 14:59 Intake Total 633.869 / 1073.869 480 / 1553.869 Output Total 1550 / 2350 400 / 2750 Balance -916.131 / -1276.131 80 / -1196.131 Weight last 48 hrs Weight 69.309 kg Weight 69.354 kg Weight 71.259 kg Weight 71.259 kg Weight 69.853 kg Weight 68.039 kg Physical Exam 2 Narrative: General: Alert oriented x3, relatively better today, Saturating above 92% on 2 L nasal cannula and not getting short of breath. Able to speak full sentences HEENT: Normocephalic, atraumatic, EOMI, 3 to 4 L/min oxygen through nasal cannula saturating at 96% Cardio: Irregular rhythm, normal S1-S2, no murmurs rubs gallops, JVD raised Respiratory: Bilateral basal inspiratory crepitations at bases without any wheezes or any other added sounds GI: Abdomen soft, nontender, nondistended, normoactive bowel sounds present all 4 quadrants, Neuro: Cranial nerves II to XII intact, strength 5/5, sensation 5/5, no gross neurological deficit Behavior: Appropriate and cooperative Extremities: Pitting edema up to mid shins Skin: Visible skin intact, no rashes Urinary Catheter Management: Carmona: Cath Placed During This Visit: yes, but has since been removed by the nurse Reason for Continuing Indwelling Catheter: Decision to DC Catheter Urinary Catheter Date of Insertion: 04/02/25 Urinary Catheter Time of Insertion: 11:00 Date Urinary Catheter Removed: 04/02/25 Time Urinary Catheter Discontinued: 16:30 Data 04/03/25 01:45 04/03/25 01:45 Micro: Microbiology 04/01/25 13:44 Blood Culture - Preliminary Blood NEGATIVE TO DATE 04/01/25 13:42 Blood Culture - Preliminary Blood NEGATIVE TO DATE A&P Assessment and plan 1. Acute exacerbation of congestive heart failure: 2. Diastolic heart failure secondary to hypertension: 3. Pulmonary hypertension: 4. Recurrent cerebrovascular accidents (CVAs): 5. Paroxysmal atrial fibrillation: 6. Left bundle branch block: 7. PVC (premature ventricular contraction): 8. Primary hypertension: 9. Tendinitis of both rotator cuffs: 10. Mild cognitive impairment with memory loss: 11. 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 Has a history of CVA. THe heart rate goes up and down from 35- 125 following with the cardiology. Presented to ER with chest heaviness associated with shortness of breath that has worsened in the past few days and developed orthopnea and PND. - Acute on chronic congestive heart failure? Patient having already diastolic dysfunction and high pulmonary artery pressure: - Echo did not reveal Any regional wall motion abnormalities. EF of 55%. Grade 2/4 diastolic dysfunction and markedly elevated filling pressures. - 40 start Lasix today and keep iv lasix 60 mg twice daily and intake output monitoring -Heart rate still above 100 around 100-110, with normal blood pressure and to increase the metoprolol from 25 mg to 50 mg twice daily - Continue to hold amlodipine meanwhile -Apixaban 2.5 mg twice daily for anticoagulation -Cardiology consult and appreciated their recommendations to start the patient on amiodarone For atrial fibrillation - Patient did not tolerate Carmona's catheter yesterday therefore it was removed however producing adequate amount of urine, she is net negative balance of around 1300 mL - Levothyroxine 50 mcg for hypothyroidism - Tacrolimus 2 mg twice daily for immunosuppression as the patient is kidney/liver transplant recipient -Memantine 10 mg daily for cognitive impairment - VTE prophylaxis: Patient on full anticoagulation with apixaban atrial fibrillation anticoagulation PDMP PDMP Reviewed: Not Reviewed Attestations 2 Medical Necessity Statement*: Echo Wright's hospital stay will require greater than 2 midnights for management of her acute on chronic congestive heart failure and uncontrolled atrial fibrillation on amiodarone drip Time Spent in Patient Care: Greater than 35 minutes (>than 50% of time spent in counselling and/or direct pt care on unit) . 40 Other Attestations: Patient condition has been discussed at length with the patient/family, I have independently reviewed the chart labs imaging and diagnostics and EKG. I have discussed the goals of care and code status with the patient/family/NOK/legal lead generation representative, and documented accordingly. The patient/family has been informed about the current condition and further plan of care. Agreed with the plan of care and understood without any language barrier. This documentation was created by [employer] beater machine operator software. Every effort was made to ensure accuracy of beater machine operator. Any obvious errors or omissions should be clarified with the author of the document. Coding Level of Care Code 82356 Diagnoses Acute exacerbation of congestive heart failure I50.9 Diastolic heart failure secondary to hypertension I11.0; I50.30 Pulmonary hypertension I27.20 Recurrent cerebrovascular accidents (CVAs) I63.9 Paroxysmal atrial fibrillation I48.0 Atrial fibrillation type: paroxysmal Left bundle branch block I44.7 PVC (premature ventricular contraction) I49.3 Primary hypertension I10 Hypertension type: primary hypertension Tendinitis of both rotator cuffs M75.81; M75.82 Mild cognitive impairment with memory loss G31.84 Hypothyroid E03.9
[2025-04-03] MEDS: FUROsemide 10 mg/mL SDV 4mL 40 MG IVP (13:25)
[2025-04-03] MEDS: pantoprazole 40 mg SDV IVP (14:42)
--- NOTE | 2025-04-03 19:52 | P.PN_ITS ---
Subjective 2 Subjective: Heart rate has slowed down but has not converted to sinus rhythm Vitals/I&O/Wt Last Vital Signs Temp 97.4 F L 04/03/25 19:16 Pulse 104 H 04/03/25 19:16 Resp 18 04/03/25 19:16 BP 112/82 04/03/25 19:16 Pulse Ox 96 04/03/25 19:16 O2 Del Method Nasal Cannula 04/03/25 19:16 O2 Flow Rate 2 04/03/25 19:16 04/03/25 04/03/25 04/03/25 06:59 14:59 22:59 Intake Total 480 / 1553.869 673.89 / 673.89 240 / 913.89 Output Total 400 / 2750 900 / 900 1300 / 2200 Balance 80 / -1196.131 -226.11 / -226.11 -1060 / -1286.11 Weight last 48 hrs Weight 152 lb 12.8 oz Weight 152 lb 14.4 oz Weight 157 lb 1.6 oz Weight 157 lb 1.6 oz Physical Exam 2 Const: OTHER: GENERAL: Patient is alert, awake and oriented x3. HEART: Irregularly irregular S1 and S2.1/6 systolic murmur, no rub LUNGS: Inspiratory crackles in basal to mid more on left than right . CENTRAL NERVOUS SYSTEM: Grossly nonfocal. EXTREMITIES: Lower extremities with out edema bilaterally. Urinary Catheter Management: Carmona: Cath Placed During This Visit: yes, but has since been removed by the nurse Reason for Continuing Indwelling Catheter: Decision to DC Catheter Urinary Catheter Date of Insertion: 04/02/25 Urinary Catheter Time of Insertion: 11:00 Date Urinary Catheter Removed: 04/02/25 Time Urinary Catheter Discontinued: 16:30 Data 04/03/25 01:45 04/03/25 01:45 Micro: Microbiology 04/01/25 14:00 Urine Culture - Final Urine,Clean Catch A&P Assessment and plan 1. Acute exacerbation of congestive heart failure: 2. Atrial fibrillation: 3. Primary hypertension: Plan: Plan for CJ guided cardioversion tomorrow Switch to p.o. Lasix Continue anticoagulation Continue to monitor I's and O's PDMP PDMP Reviewed: Not Reviewed Attestations 2 Medical Necessity Statement*: Patient require continuation hospitalization for above defined care Coding Level of Care Code Acute Code for Chg Fwd Diagnoses Acute exacerbation of congestive heart failure I50.9 Atrial fibrillation I48.91 Primary hypertension I10 Hypertension type: primary hypertension
[2025-04-04] VITALS (67 sets, daily range): BP systolic 90–136; BP diastolic 51–99; PULSE 57–116; RESP 14–39; TEMP 36.6–37; O2SAT 89–100; BMI 26.6
[2025-04-04] MEDS: cefepime 1,000 mg SDV 1000 MG IVP ×2 (02:05→14:58)
[2025-04-04 03:10] LABS: Hematocrit 32.9 % (36-47); Hemoglobin 11.00 g/dL (11.27-16.99); Mean Corpuscular HGB Conc 33.4 g/dL (30-55); Mean Corpuscular Hemoglobin 29.6 pg (27-33); Mean Corpuscular Volume 88.4 fl (85-98); Nucleated Red Blood Cells % 0 %; Platelet Count 156 10^3/cmm (157-399); Red Blood Count 3.72 10^6/uL (3.85-5.65); White Blood Count 4.36 10^3/uL (3.29-11.43)
[2025-04-04 03:28] LABS: Alanine Aminotransferase 16 U/L (0-33); Albumin Level 3.6 g/dL (3.5-5.2); Alkaline Phosphatase 103 U/L (35-105); Anion Gap 15.7 (5-19); Aspartate Amino Transferase 15 U/L (0-32); Blood Urea Nitrogen 17 mg/dL (8-23); Calcium 8.7 mg/dL (8.5-10.5); Carbon Dioxide 29 mmol/L (22-29); Chloride 94 mmol/L (98-107); Creatinine Clr Calc Pharmacy 53.2575; Globulin 2.8 g/dL (1.3-4.6); Glucose 103 mg/dL (65-115); Osmolality Calculated 282 mOsm/kg (285-295); Potassium 3.7 mmol/L (3.5-5.1); Sodium 135 mmol/L (136-145); Total Protein 6.4 g/dL (6.6-8.7)
[2025-04-04] MEDS: FUROsemide 10 mg/mL SDV 4mL 60 MG IVP ×2 (05:15→18:21)
--- NOTE | 2025-04-04 08:29 | PM.PN ---
Subjective Subjective: The patient was seen in the morning and doing well. Looks euvolemic. Oxygen supplementation reduced to 1 to 2 L/min nasal cannula. Bilateral pedal edema has subsided. The patient is able to complete full sentences and not getting any short of breath or wheezes or any wet cough She is today for cath ablation for atrial fibrillation To follow the cardio recommendation Vitals/I&O/Wt Last Vital Signs Temp 98.4 F 04/04/25 06:57 Pulse 114 H 04/04/25 06:57 Resp 19 H 04/04/25 06:57 BP 132/99 04/04/25 06:57 Pulse Ox 96 04/04/25 06:57 O2 Del Method Nasal Cannula 04/04/25 06:57 O2 Flow Rate 2 04/04/25 04:00 04/03/25 04/04/25 04/04/25 22:59 06:59 14:59 Intake Total 240 / 913.89 6.358 / 920.248 Output Total 1500 / 2400 300 / 2700 Balance -1260 / -1486.11 -293.642 / -1779.752 Weight last 48 hrs Weight 68.209 kg Weight 69.309 kg Weight 69.354 kg Physical Exam Narrative: General: Alert oriented x3, relatively better today, and looks euvolemic HEENT: Normocephalic, atraumatic, EOMI, 2 L/min oxygen through nasal cannula saturating at 96% Cardio: Irregular rhythm, normal S1-S2, no murmurs rubs gallops, JVD normal Respiratory: Bilateral basal inspiratory crepitations at bases without any wheezes or any other added sounds GI: Abdomen soft, nontender, nondistended, normoactive bowel sounds present all 4 quadrants, Neuro: Cranial nerves II to XII intact, strength 5/5, sensation 5/5, no gross neurological deficit Behavior: Appropriate and cooperative Extremities: No pedal edema and peripheral pulses full and palpable Skin: Visible skin intact, no rashes Urinary Catheter Management: Carmona: Cath Placed During This Visit: yes, but has since been removed by the nurse Reason for Continuing Indwelling Catheter: Decision to DC Catheter Urinary Catheter Date of Insertion: 04/02/25 Urinary Catheter Time of Insertion: 11:00 Date Urinary Catheter Removed: 04/02/25 Time Urinary Catheter Discontinued: 16:30 Data 04/04/25 02:02 04/04/25 02:02 Micro: Microbiology 04/01/25 14:00 Urine Culture - Final Urine,Clean Catch A&P Assessment and plan 1. Acute exacerbation of congestive heart failure: 2. Diastolic heart failure secondary to hypertension: 3. Pulmonary hypertension: 4. Recurrent cerebrovascular accidents (CVAs): 5. Paroxysmal atrial fibrillation: 6. Left bundle branch block: 7. PVC (premature ventricular contraction): 8. Primary hypertension: 9. Tendinitis of both rotator cuffs: 10. Mild cognitive impairment with memory loss: 11. 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 Has a history of CVA. THe heart rate goes up and down from 35- 125 following with the cardiology. Presented to ER with chest heaviness associated with shortness of breath that has worsened in the past few days and developed orthopnea and PND. - Acute on chronic congestive heart failure? Patient having already diastolic dysfunction and high pulmonary artery pressure: - Echo did not reveal Any regional wall motion abnormalities. EF of 55%. Grade 2/4 diastolic dysfunction and markedly elevated filling pressures. - keep iv lasix 60 mg twice daily and intake output monitoring - renal parameters and electrolytes monitoring and correction accordingly - cardiology consulted and onboard for a planned for cath ablation for the atrial fibrillation -Heart rate still above 100 around 100-110, continue metoprolol 50mg bid -Apixaban 2.5 mg twice daily for anticoagulation -patient on amiodarone For atrial fibrillation as per cardio recs - Levothyroxine 50 mcg for hypothyroidism - Tacrolimus 2 mg twice daily for immunosuppression as the patient is kidney/liver transplant recipient -Memantine 10 mg daily for cognitive impairment - VTE prophylaxis: Patient on full anticoagulation with apixaban atrial fibrillation anticoagulation PDMP PDMP Reviewed: Not Reviewed Attestations Medical Necessity Statement*: Echo Wright's hospital stay will require greater than 2 midnights for acute on chronic congestive heart failure, at fibrillation Time Spent in Patient Care: Greater than 35 minutes (>than 50% of time spent in counselling and/or direct pt care on unit). Other Attestations: Patient condition has been discussed at length with the patient/family, I have independently reviewed the chart labs imaging and diagnostics and EKG. I have discussed the goals of care and code status with the patient/family/NOK/legal ambulatory services representative, and documented accordingly. The patient/family has been informed about the current condition and further plan of care. Agreed with the plan of care and understood without any language barrier. This documentation was created by [employer] zoology professor software. Every effort was made to ensure accuracy of zoology professor. Any obvious errors or omissions should be clarified with the author of the document. Coding Level of Care Code 94269 Diagnoses Acute exacerbation of congestive heart failure I50.9 Diastolic heart failure secondary to hypertension I11.0; I50.30 Pulmonary hypertension I27.20 Recurrent cerebrovascular accidents (CVAs) I63.9 Paroxysmal atrial fibrillation I48.0 Atrial fibrillation type: paroxysmal Left bundle branch block I44.7 PVC (premature ventricular contraction) I49.3 Primary hypertension I10 Hypertension type: primary hypertension Tendinitis of both rotator cuffs M75.81; M75.82 Mild cognitive impairment with memory loss G31.84 Hypothyroid E03.9
--- NOTE | 2025-04-04 09:37 | PC.SOCIAL ---
IMM Update Updated pt on IMM. No questions voiced. Provided pt a copt. Initialed, dated, & timed a copy & placed in chart.
--- NOTE | 2025-04-04 10:08 | P.PN_ITS ---
<Statement entered by Lucinda Ferro MD - 04/04/25 19:51> Patient was evaluated and cared for in conjunction with an advanced practice practitioner. I personally examined the patient and reviewed the chart and all pertinent data including imaging, telemetry, and laboratory results. I discussed the patient in detail with the advanced practice practitioner. Please see their note for complete H&P testing result and agreed upon plan of care for the patient. Subjective 2 Subjective: No events noted overnight. No chest pain or shortness of breath. Plan for CJ guided cardioversion today. Vitals/I&O/Wt Last Vital Signs Temp 98.4 F 04/04/25 06:57 Pulse 114 H 04/04/25 06:57 Resp 19 H 04/04/25 06:57 BP 132/99 04/04/25 06:57 Pulse Ox 96 04/04/25 06:57 O2 Del Method Nasal Cannula 04/04/25 06:57 O2 Flow Rate 2 04/04/25 04:00 04/03/25 04/04/25 04/04/25 22:59 06:59 14:59 Intake Total 240 / 920.248 6.358 / 920.248 Output Total 1500 / 2700 300 / 2700 900 / 900 Balance -1260 / -1779.752 -293.642 / -1779.752 -900 / -900 Weight last 48 hrs Weight 150 lb 6 oz Weight 152 lb 12.8 oz Weight 152 lb 14.4 oz Physical Exam 2 Const: COMMON NORMALS: no acute distress and patient oriented x3 Chest: COMMONS NORMALS: normal inspection of the chest and normal palpation of entire chest wall CHEST: Yes Symmetrical chest wall rise Resp: COMMON NORMALS: normal respiratory effort, No retractions, No use of accessory muscles and clear to auscultation bilaterally EFFORT & INSPECTION: Yes symmetric chest movement AUSCULTATION: clear to auscultation bilaterally Cardio: COMMON NORMALS: S1 normal heart sound present, S2 normal heart sound present, No gallops present (Cardio), No clicks present (Cardio), No murmurs present (Cardio) and No rub (Cardio) RHYTHM: abnormal rhythm irregularly irregular HEART SOUNDS: S1 normal heart sound present and S2 normal heart sound present PERIPHERAL PULSES: radial pulses present, posterior tibial pulses present and dorsalis pedis present Neuro: COMMON NORMALS: patient oriented x3 and moves all extremities Psych: COMMON NORMALS: mental status grossly normal and cooperative Urinary Catheter Management: Carmona: Cath Placed During This Visit: yes, but has since been removed by the nurse Reason for Continuing Indwelling Catheter: Decision to DC Catheter Urinary Catheter Date of Insertion: 04/02/25 Urinary Catheter Time of Insertion: 11:00 Date Urinary Catheter Removed: 04/02/25 Time Urinary Catheter Discontinued: 16:30 Data 04/04/25 02:02 04/04/25 02:02 Micro: Microbiology 04/01/25 14:00 Urine Culture - Final Urine,Clean Catch A&P Assessment and plan 1. Atrial fibrillation: 2. Acute exacerbation of congestive heart failure: 3. Hypertension: Plan: She is n.p.o., plan for CJ guided cardioversion today at 1300. She is feeling well otherwise. Continue Eliquis, Lasix, metoprolol, amiodarone infusion. PDMP PDMP Reviewed: Not Reviewed Attestations 2 Medical Necessity Statement*: Cardioversion today Coding Level of Care Code Acute Code for [facility] Diagnoses Atrial fibrillation I48.91 Acute exacerbation of congestive heart failure I50.9 Hypertension I10
--- NOTE | 2025-04-04 11:00 | USCV_ITS ---
Echo Wright Age: 79 Gender: F : 1945 Exam Date: 04/04/2025 13:23 Ordering Phys: Lucinda Ferro MD ([email or web address]) Technologist: Exam Location: [facility] – [place] Indication: card conversion BP: / HR: Rhythm: Sinus Technical Quality: Good MEASUREMENTS (Male / Female) Normal Values FINDINGS Left Ventricle Normal left ventricular size, systolic function and wall thickness, with no regional wall motion abnormalities. Left ventricular ejection fraction is estimated at 50%. Right Ventricle The right ventricle is normal in size and function. Right Atrium No interatrial shunt with bubble study or color Doppler noted. No PFO noted. Left Atrium No thrombus present in the left atrial appendage. No left atrial mass or thrombus visualized. Mitral Valve Moderately thickened mitral valve. No mitral valve stenosis. Mild mitral valve regurgitation. Aortic Valve Moderate aortic valve calcification. No aortic valve stenosis. Trace aortic valve regurgitation. Tricuspid Valve Structurally normal tricuspid valve without significant stenosis or regurgitation. Pulmonary artery systolic pressure is normal. Pulmonic Valve Structurally normal pulmonic valve without significant stenosis. There is no pulmonic regurgitation. Pericardium Normal pericardium without effusion. Aorta Normal ascending aorta dimension. IVC The inferior vena cava appears normal. CONCLUSIONS Normal left ventricular size, systolic function and wall thickness, with no regional wall motion abnormalities. Left ventricular ejection fraction is estimated at 50%. No interatrial shunt with bubble study or color Doppler noted. No PFO noted. There is no pericardial effusion. No thrombus present in the left atrial appendage. No left atrial mass or thrombus visualized. Lucinda Ferro MD (Electronically Signed) Final Date: 04 April 2025 19:23 S
--- NOTE | 2025-04-04 13:31 | ANES.PREANE2 ---
Pre-Anesthetic Assessment Height/Weight: Height 5 ft 3 in Weight 150 lb 6 oz Temp Pulse Resp BP Pulse Ox O2 Del Method O2 Flow Rate 98.4 F 103 H 34 H 123/90 97 Nasal Cannula 2 04/04/25 06:57 04/04/25 12:00 04/04/25 12:00 04/04/25 12:00 04/04/25 12:00 04/04/25 06:57 04/04/25 04:00 Preop Diagnosis: A-fib with RVR Was Beta Ekaterina taken within 24 hours: Yes Was Clonidine taken within 24 hours: N/A Social No alcohol and No tobacco Exam alert, oriented x 3, clear to auscultation bilaterally and regular rate & rhythm Airway Submandibular: within normal limits Cervical ROM: within normal limits Mallampati: Class II Dentition: full Anesthetic Plan ASA status: 4 Anesthesia: MAC Other: No prior issues with anesthesia NPO since yesterday evening Patient admitted with A-fib with RVR. Prior cardioversion 9 months ago that was successful Patient on metoprolol and amlodipine Prior CVA 2019 S/p kidney and liver transplant Echo showing preserved EF with mild pulmonary hypertension Plan for MAC anesthesia Medications/Allergies Home Medications ?Medication ?Instructions ?Recorded ?Confirmed ?Last Taken ?Type multivitamin 1 tab PO BID 11/02/19 04/01/25 04/01/25 08:[address] Noel Probiotics 1 cap PO BID 07/09/21 04/01/25 04/01/25 History Andresuguard Eye Vitamins 1 cap PO DAILY 07/09/21 04/01/25 04/01/25 History ascorbic acid (vitamin C) 500 mg 500 mg PO BID 05/26/23 04/01/25 04/01/25 08:00 History capsule cholecalciferol (vitamin D3) 50 5,000 unit PO DAILY 05/26/23 04/01/25 04/01/25 08:00 History mcg (2,000 unit) capsule magnesium 200 mg tablet 100 mg PO DAILY 05/26/23 04/01/25 04/01/25 08:00 History omeprazole 40 mg capsule,delayed 40 mg PO DAILY 03/01/24 04/01/25 04/01/25 08:00 History release Sole supports #1 ea 05/25/24 04/01/25 Unknown Rx omega-3 fatty acids-fish oil 684 1 cap PO DAILY 05/25/24 04/01/25 04/01/25 08:00 History mg-1,200 mg capsule,delayed release tacrolimus 1 mg capsule, 2 mg PO BID 08/02/24 04/01/25 04/01/25 08:00 History immediate-release metoprolol tartrate 25 mg tablet 25 mg PO BID #60 tabs 08/23/24 04/01/25 04/01/25 08:00 Rx amlodipine 10 mg tablet 10 mg PO DAILY #90 tabs 09/14/24 04/01/25 04/01/25 07:00 Rx furosemide 40 mg tablet 40 mg PO BID 12/01/24 04/01/25 04/01/25 08:00 History levothyroxine 50 mcg tablet 50 mcg PO DAILY 12/01/24 04/01/25 04/01/25 08:00 History memantine 10 mg tablet 10 mg PO BID #180 tabs 12/14/24 04/01/25 04/01/25 08:00 Rx flecainide 50 mg tablet 50 mg PO Q8H #60 tabs 03/28/25 04/01/25 04/01/25 08:00 Rx potassium chloride 10 mEq 10 meq PO DAILY 04/01/25 04/01/25 04/01/25 08:00 History capsule,extended release Eliquis 2.5 mg PO BID 04/03/25 04/03/25 04/01/25 History Allergies Allergy/AdvReac Type Severity Reaction Status Date / Time ezetimibe (From Zetia) Allergy ADR-Headach Verified 03/28/25 10:01 e Penicillins Allergy rash Verified 03/28/25 10:01 rivaroxaban (From Xarelto) Allergy ADR-Muscle Verified 03/28/25 10:01 Pain Ncqcsle-NCT-WlR Reductase Allergy ALGY-Joint Verified 03/28/25 10:01 Inhibitor Pain Current Medications Generic Name Dose Route Start Last Admin Trade Name Andreyq PRN Reason Stop Dose Admin Apixaban 2.5 mg 04/02/25 21:00 04/04/25 08:45 Apixaban 5 Mg Tablet PO 2.5 mg BID@0900,2100 RADHA Administration Cefepime HCl 1,000 mg 04/02/25 03:00 04/04/25 02:05 Cefepime 1,000 Mg Sdv IVP 1,000 mg Q12H RADHA Administration Protocol Furosemide 60 mg 04/02/25 17:00 04/04/25 05:15 Furosemide 10 Mg/Ml Sdv 4ml IVP 60 mg Q12H RADHA Administration Amiodarone HCl/Dextrose 360 mg in 200 mls @ 0 mls/hr 04/02/25 15:30 04/03/25 23:41 Nexterone IV 0.01 mg/min .Q0M RADHA 0.5 mls/hr Protocol Administration Per Protocol Levothyroxine Sodium 50 mcg 04/02/25 09:00 04/03/25 19:37 Levothyroxine 50 Mcg Tablet PO 50 mcg DAILY RADHA Administration Memantine 10 mg 04/02/25 09:00 04/04/25 08:46 Memantine 5 Mg Tablet PO 10 mg BID RADHA Administration Metoprolol Tartrate 50 mg 04/02/25 18:00 04/04/25 08:46 Metoprolol Tartrate 25 Mg Tablet PO 50 mg BID RADHA Administration Non-Formulary 2 each 04/02/25 10:00 04/04/25 10:23 Medication ( PO 2 each Tacrolimus 1 Mg Cap) BID@1000,2200 RADHA Administration Pantoprazole Sodium 40 mg 04/01/25 15:15 04/03/25 14:42 Pantoprazole 40 Mg Sdv IVP 40 mg Q24H RADHA Administration PFSH Anesthesia Medical History (Updated 04/02/25 @ 20:00 by Lucinda Ferro MD) Atrial fibrillation Atrial fibrillation CVA (cerebral vascular accident) LVH (left ventricular hypertrophy) Palpitations Hyperlipidemia PVC (premature ventricular contraction) Hypertension Surgical History Kidney transplant recipient Liver transplant recipient On tacrolimus, flecainide discontinued because of drug interaction Kidney transplant recipient Family History Mother Stroke Hypertension Family/Other Cancer Social History Smoking and tobacco/nicotine status: never used tobacco/nicotine Alcohol intake: never Substance/Drug Use: never Current occupational status: retired Data Anesthesia 04/04/25 02:02 04/04/25 02:02 Short CBC 04/03/25 04/04/25 Range/Units 01:45 02:02 WBC 5.19 4.36 (3.29-11.43) 10^3/uL Hgb 10.40 L 11.00 L (11.27-16.99) g/dL Hct 31.1 L 32.9 L (36-47) % MCV 89.1 88.4 (85-98) fl Plt Count 143 L 156 L (157-399) 10^3/cmm Neut % (Auto) 72.2 58.0 % Neut # (Auto) 3.75 2.53 (1.8-7.7) 10^3/uL BMP 04/03/25 04/04/25 01:45 02:02 Sodium 137 135 L Potassium 3.4 L 3.7 Chloride 98 94 L Carbon Dioxide 27 29 BUN 16 17 Creatinine 0.8 0.8 Glucose 110 103 Calcium 8.4 L 8.7 Liver Function 04/03/25 04/04/25 Range/Units 01:45 02:02 Total Bilirubin 0.5 0.4 (0.15-1.2) mg/dL AST 17 15 (0-32) U/L ALT 17 16 (0-33) U/L Alkaline Phosphatase 108 H 103 (35-105) U/L Albumin 3.6 3.6 (3.5-5.2) g/dL Microbiology 04/01/25 14:00 Urine Culture - Final Urine,Clean Catch Cardiac Studies: Echocardiogram 04/01/25 Transesophageal Echocardiogram 08/03/24 Sestamibi Stress Test (Cardiology) 03/07/23 Cardiac Event Monitor 07/26/21
--- NOTE | 2025-04-04 13:50 | PC.NURSE ---
DONTE Patient alert abd oriented x4, NPO since 0000 vital signs stable remains in Afib consent For donte obtained allergies reviewed, IV patent in left forearm with Amio GTT in place patient placed in positions and zoll pads applied zoll monitor synced Time out performed patient vital signs remained stable throughout patient arousable and drowsy normal sinus noted on monitor Vital signs stable
--- NOTE | 2025-04-04 14:43 | PC.NURSE ---
verbal instruction post procedure to start 200mg BID amio start now and then stop drip after 1 hour
--- NOTE | 2025-04-04 14:47 | ANE.PACU2 ---
Inpatient post-anesthesia follow up: Airway intact: Yes Vital signs: Temperature 98.4 F Pulse Rate 103 Respiratory Rate 34 Blood Pressure 123/90 Pulse Oximetry 97 Oxygen Delivery Me thod Nasal Cannula Oxygen Flow Rate 2 Fraction of Inspir ed Oxygen Hydration adequate: Yes Nausea and vomiting: No Pain level: 1 Mental status: Baseline Additional Comments: cardioversion successful
[2025-04-04] MEDS: pantoprazole 40 mg SDV IVP (14:59)
[2025-04-05] VITALS (19 sets, daily range): BP systolic 116–125; BP diastolic 62–73; PULSE 57–77; RESP 13–24; TEMP 36.3–36.7; O2SAT 90–95
[2025-04-05] MEDS: cefepime 1,000 mg SDV 1000 MG IVP (03:03)
[2025-04-05 04:06] LABS: Hematocrit 31.8 % (36-47); Hemoglobin 10.80 g/dL (11.27-16.99); Mean Corpuscular HGB Conc 34.0 g/dL (30-55); Mean Corpuscular Hemoglobin 30.0 pg (27-33); Mean Corpuscular Volume 88.3 fl (85-98); Nucleated Red Blood Cells % 0 %; Platelet Count 160 10^3/cmm (157-399); Red Blood Count 3.60 10^6/uL (3.85-5.65); White Blood Count 3.70 10^3/uL (3.29-11.43)
[2025-04-05 04:29] LABS: Alanine Aminotransferase 13 U/L (0-33); Albumin Level 3.4 g/dL (3.5-5.2); Alkaline Phosphatase 96 U/L (35-105); Anion Gap 17.4 (5-19); Aspartate Amino Transferase 15 U/L (0-32); Blood Urea Nitrogen 23 mg/dL (8-23); Calcium 8.7 mg/dL (8.5-10.5); Carbon Dioxide 26 mmol/L (22-29); Chloride 93 mmol/L (98-107); Creatinine Clr Calc Pharmacy 46.3382; Globulin 2.9 g/dL (1.3-4.6); Glucose 101 mg/dL (65-115); Osmolality Calculated 280 mOsm/kg (285-295); Potassium 3.4 mmol/L (3.5-5.1); Sodium 133 mmol/L (136-145); Total Protein 6.3 g/dL (6.6-8.7)
[2025-04-05] MEDS: FUROsemide 10 mg/mL SDV 4mL 40 MG IVP (05:53)
--- NOTE | 2025-04-05 10:10 | PM.PN ---
Subjective Subjective: She has remained in sinus rhythm overnight. Feeling well this morning, no shortness of breath or chest pain. She appears euvolemic. Vitals/I&O/Wt Last Vital Signs Temp 98.0 F 04/05/25 07:55 Pulse 70 04/05/25 07:55 Resp 24 H 04/05/25 07:55 BP 125/64 04/05/25 07:55 Pulse Ox 92 04/05/25 07:55 O2 Del Method Room Air 04/05/25 07:55 O2 Flow Rate 2 04/04/25 04:00 04/04/25 04/05/25 04/05/25 22:59 06:59 14:59 Intake Total 848.367 / 948.367 100 / 948.367 240 / 240 Output Total 100 / 1200 200 / 1200 Balance 748.367 / -251.633 -100 / -251.633 240 / 240 Weight last 48 hrs Weight 145 lb 14.4 oz Weight 150 lb 6 oz Physical Exam Const: COMMON NORMALS: no acute distress and patient oriented x3 GENERAL APPEARANCE: cooperative and comfortable ORIENTATION/CONSCIOUSNESS: Yes awake, Yes oriented to person, Yes oriented to place and Yes oriented to time Chest: COMMONS NORMALS: normal inspection of the chest and normal palpation of entire chest wall CHEST: Yes Symmetrical chest wall rise Resp: COMMON NORMALS: normal respiratory effort, No retractions, No use of accessory muscles and clear to auscultation bilaterally EFFORT & INSPECTION: Yes symmetric chest movement AUSCULTATION: clear to auscultation bilaterally Cardio: COMMON NORMALS: regular rate, regular rhythm, S1 normal heart sound present, S2 normal heart sound present, No gallops present (Cardio), No clicks present (Cardio), No murmurs present (Cardio) and No rub (Cardio) RATE: regular rate RHYTHM: regular rhythm HEART SOUNDS: S1 normal heart sound present and S2 normal heart sound present PERIPHERAL PULSES: radial pulses present Extremity: COMMON NORMALS: no pedal edema Neuro: COMMON NORMALS: patient oriented x3 and moves all extremities SENSORIUM/ORIENTATION: Yes oriented to person, Yes oriented to place and Yes oriented to time Urinary Catheter Management: Carmona: Cath Placed During This Visit: yes, but has since been removed by the nurse Reason for Continuing Indwelling Catheter: Decision to DC Catheter Urinary Catheter Date of Insertion: 04/02/25 Urinary Catheter Time of Insertion: 11:00 Date Urinary Catheter Removed: 04/02/25 Time Urinary Catheter Discontinued: 16:30 Data 04/05/25 03:35 04/05/25 03:35 A&P Assessment and plan 1. Atrial fibrillation: 2. Acute exacerbation of congestive heart failure: 3. Hypertension: Plan: She remains in sinus rhythm this morning, I have noted several 4-beat runs of VT overnight. Continue amiodarone 200 mg twice a day, metoprolol 50 mg twice a day, recommend placing 14-day event monitor prior to discharge home. Will also check LFTs since she has history of liver transplant to ensure amiodarone is not impacting liver function. Will switch Lasix to 40 mg daily, potassium 20 mEq daily. Continue Eliquis 2.5 mg twice a day. If LFTs are normal may discharge home today if okay with hospitalist service. PDMP PDMP Reviewed: Not Reviewed Attestations Medical Necessity Statement*: Possible DC Coding Level of Care Code Acute Code for [facility] Diagnoses Atrial fibrillation I48.91 Acute exacerbation of congestive heart failure I50.9 Hypertension I10
--- NOTE | 2025-04-05 14:20 | PM.DCS ---
Discharge Providers Date of Admission: 04/01/25 15:56 Date of Discharge: April 05, 2025 Attending Provider at Admission: Estephania Priest MD Attending Provider at Discharge: Kristel Dc MD Diagnoses at Discharge Discharge Diagnosis 1. Paroxysmal atrial fibrillation: 2. Acute exacerbation of congestive heart failure: 3. 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 Has a history of CVA. THe heart rate goes up and down from 35- 125 following with the cardiology. Presented to ER with chest heaviness associated with shortness of breath that has worsened in the past few days and developed orthopnea and PND. but did not report any recent sick contacts or travels. The patient is compliant to her medications. Her UA showed likelihood of UTI however there was no leukocytosis. Patient did not report any fever, chills or any weight loss. No abdominal pain or diarrhea. No recent headaches change in her vision. No syncope or presyncope. No skin rash Patient was admitted and was status post ablation after having had CJ and then was placed on amiodarone. Since then patient had converted to sinus rhythm from an atrial fibrillation with rapid ventricular rate with tacky arrhythmia and some bradycardia at arrhythmia now and the heart rate stays stable sinus rhythm high 60s to low 70s. Patient is good now to go I rounded with cardiology on the patient this morning all questions were answered patient felt very satisfied at the bedside via all smiling and they were happy. Patient is now discharged to follow-up with the PCP within a week as well as following up with cardiology Dr. Ferro within 1 week. Physical Exam Narrative: The patient is in no apparent distress on rounds patient was rounded on by myself and also cardiology that had walked in behind me and all questions were answered patient was happy. HEENT normocephalic atraumatic neck neck is supple cardiovascular heart rate is regular in the sinus rhythm 60s to 70s. Lungs are clear abdomen soft nontender nondistended unremarkable extremities are intact no edema has good pulses neurology has no focality lab studies lab studies reviewed and noted. Urinary Catheter Management: Carmona: Cath Placed During This Visit: yes, but has since been removed by the nurse Reason for Continuing Indwelling Catheter: Decision to DC Catheter Urinary Catheter Date of Insertion: 04/02/25 Urinary Catheter Time of Insertion: 11:00 Date Urinary Catheter Removed: 04/02/25 Time Urinary Catheter Discontinued: 16:30 Discharge Data Studies Completed and Pending Completed Studies During Hospitalization Category Date Time Status XR chest 1V portable [id number] Stat Exams 04/01/25 13:17 Completed CV. echo complete* [id number] Stat Ultrasound 04/01/25 18:06 Completed CV. echo transesophageal [id number] Routine Ultrasound 04/04/25 11:00 Completed Pending at discharge Category Date Time Status Blood Culture Stat Lab 04/01/25 13:44 Results Radiology Impressions Chest X-Ray 04/01/25 13:17 IMPRESSION: Bilateral pleural effusions larger on the right Compressive atelectasis in both lower lobes. Cardiac enlargement with calcified mitral valve annulus. Laboratory Results WBC 3.70 10^3/uL (3.29-11.43) 04/05/25 03:35 Corrected WBC Cancelled 04/05/25 02:47 RBC 3.60 10^6/uL (3.85-5.65) L 04/05/25 03:35 Hgb 10.80 g/dL (11.27-16.99) L 04/05/25 03:35 Hct 31.8 % (36-47) L 04/05/25 03:35 MCV 88.3 fl (85-98) 04/05/25 03:35 MCH 30.0 pg (27-33) 04/05/25 03:35 MCHC 34.0 g/dL (30-55) 04/05/25 03:35 RDW 13.3 % (12.1-15.1) 04/05/25 03:35 Plt Count 160 10^3/cmm (157-399) 04/05/25 03:35 MPV 9.9 fL (7.4-10.4) 04/05/25 03:35 Gran % Cancelled 04/05/25 02:47 Neut % (Auto) 56.4 % 04/05/25 03:35 Lymph % (Auto) 29.5 % 04/05/25 03:35 Russell % (Auto) 9.2 % 04/05/25 03:35 Eos % (Auto) 4.1 % 04/05/25 03:35 Baso % (Auto) 0.8 % 04/05/25 03:35 Neut # (Auto) 2.09 10^3/uL (1.8-7.7) 04/05/25 03:35 Lymph # (Auto) 1.1 10^3/uL (0.8-4.8) 04/05/25 03:35 Russell # (Auto) 0.3 10^3/uL (0.2-0.9) 04/05/25 03:35 Eos # (Auto) 0.2 10^3/uL (0.0-0.8) 04/05/25 03:35 Baso # (Auto) 0.0 10^3/uL (0.0-0.1) 04/05/25 03:35 Absolute Gran (auto) Cancelled 04/05/25 02:47 Nucleated RBC % (auto) 0 % 04/05/25 03:35 Nucleated RBCs # 0.0 /100WBC 04/05/25 03:35 Sodium 133 mmol/L (136-145) L 04/05/25 03:35 Potassium 3.4 mmol/L (3.5-5.1) L 04/05/25 03:35 Chloride 93 mmol/L (98-107) L 04/05/25 03:35 Carbon Dioxide 26 mmol/L (22-29) 04/05/25 03:35 Anion Gap 17.4 (5-19) 04/05/25 03:35 BUN 23 mg/dL (8-23) 04/05/25 03:35 Creatinine 0.9 mg/dL (0.5-0.9) 04/05/25 03:35 GFR Calculation Not Reportable 04/05/25 03:35 Glucose 101 mg/dL (65-115) 04/05/25 03:35 Calculated Osmolality 280 mOsm/kg (285-295) L 04/05/25 03:35 Lactic Acid 0.9 mmol/L (0.5-2.2) 04/01/25 13:28 Calcium 8.7 mg/dL (8.5-10.5) 04/05/25 03:35 Magnesium 2.0 mg/dL (1.7-2.3) 04/02/25 02:07 Total Bilirubin 0.5 mg/dL (0.15-1.2) 04/05/25 03:35 Total Bilirubin Cancelled 04/05/25 03:35 Direct Bilirubin 0.15 mg/dL (0.00-0.30) 04/05/25 03:35 Direct Bilirubin Cancelled 04/05/25 03:35 AST 15 U/L (0-32) 04/05/25 03:35 AST Cancelled 04/05/25 03:35 ALT 13 U/L (0-33) 04/05/25 03:35 ALT Cancelled 04/05/25 03:35 Alkaline Phosphatase 96 U/L (35-105) 04/05/25 03:35 Alkaline Phosphatase Cancelled 04/05/25 03:35 Troponin T Baseline 8 ng/L (0-10) 04/01/25 13:28 Troponin T 120 Minute 7.29 ng/L (0-10) 04/01/25 14:53 Delta Troponin T -0.71 ABS# (0-10) L 04/01/25 14:53 Troponin T Hi Sens 6Hr 8.10 ng/L (0-10) 04/01/25 19:41 Troponin T Hi Sens 6Hr Delta 0.10 ng/L (0-12) 04/01/25 19:41 C-Reactive Protein 19.7 mg/L (0.0-4.9) H 04/01/25 13:28 NT-Pro-B Natriuret Pep 3898 pg/mL (0-450) H 04/01/25 13:28 Total Protein 6.3 g/dL (6.6-8.7) L 04/05/25 03:35 Total Protein Cancelled 04/05/25 03:35 Albumin 3.4 g/dL (3.5-5.2) L 04/05/25 03:35 Albumin Cancelled 04/05/25 03:35 Globulin 2.9 g/dL (1.3-4.6) 04/05/25 03:35 Globulin Cancelled 04/05/25 03:35 TSH 1.89 uIU/mL (0.27-4.20) 04/01/25 13:28 Urine Color Dark yellow (Yellow) A 04/01/25 14:00 Urine Appearance Cloudy (CLEAR) A 04/01/25 14:00 Urine pH 7.0 (5-7) 04/01/25 14:00 Ur Specific [place] 1.010 (1.005-1.030) 04/01/25 14:00 Urine Protein Negative (Negative) 04/01/25 14:00 Urine Glucose (UA) Negative (Normal) 04/01/25 14:00 Urine Ketones Trace (Negative) 04/01/25 14:00 Urine Blood Negative (Negative) 04/01/25 14:00 Urine Nitrate Negative (Negative) 04/01/25 14:00 Urine Bilirubin Negative (Negative) 04/01/25 14:00 Urine Urobilinogen 1.0 mg/dL (Negative) 04/01/25 14:00 Ur Leukocyte Esterase 3+ (Negative) A 04/01/25 14:00 Urine RBC 0-2 /hpf (0-2) 04/01/25 14:00 Urine WBC >100 /hpf (0-5) H 04/01/25 14:00 Ur Squamous Epith Cells 0-5 /hpf (0-5) 04/01/25 14:00 Amorphous Sediment Not Reportable 04/01/25 14:00 Urine Bacteria None seen /hpf (NONE) 04/01/25 14:00 Hyaline Casts 1.21 /lpf 04/01/25 14:00 Vitals Last Vital Signs Temp 97.4 F L 04/05/25 12:00 Pulse 65 04/05/25 14:00 Resp 24 H 04/05/25 12:00 BP 116/71 04/05/25 12:00 Pulse Ox 93 04/05/25 12:00 O2 Del Method Room Air 04/05/25 12:00 O2 Flow Rate 2 04/04/25 04:00 Discharge Plan Discharge Patient Disposition: Home Condition: Stable Prescriptions: New amiodarone [Pacerone] 200 mg Tablet 200 mg PO BID Qty: 60 0RF Continued multivitamin Tablet 1 tab PO BID ascorbic acid (vitamin C) 500 mg capsule 500 mg PO BID cholecalciferol (vitamin D3) 50 mcg (2,000 unit) capsule 5,000 unit PO DAILY (DME) Sole supports See Rx Instructions .Route .MEDSUPPLY Qty: 1 0RF Rx Instructions: As directed omega-3 fatty acids-fish oil 684-1,200 mg capsule,delayed release(DR/EC) 1 cap PO DAILY memantine 10 mg tablet 10 mg PO BID Qty: 180 3RF metoprolol tartrate 25 mg tablet 25 mg PO BID Qty: 60 0RF omeprazole 40 mg capsule,delayed release(DR/EC) 40 mg PO DAILY levothyroxine 50 mcg tablet 50 mcg PO DAILY amlodipine 10 mg tablet 10 mg PO DAILY Qty: [address] Noel Probiotics 1 cap PO BID Macuguard Eye Vitamins 1 cap PO DAILY magnesium 200 mg tablet 100 mg PO DAILY tacrolimus 1 mg capsule 2 mg PO BID potassium chloride 10 mEq capsule, extended release 10 meq PO DAILY furosemide 40 mg tablet 40 mg PO BID 60 Days Qty: 120 0RF Eliquis 2.5 mg PO BID Qty: 60 0RF Discontinued flecainide 50 mg tablet 50 mg PO Q8H Qty: 60 3RF Construction Engineering Manager OK for DC: Cardiology Discharge Order = DC NOW: Discharge Order (Routine); Ordered 04/05/25 Ordered By: Kristel Dc Referrals: Lucinda Ferro MD [Physician, Cardiology] - 4-7 days Mason Mcdonough DO [Staff Physician, Family Practice] - 04/11/25 4:10 pm Discharge Diet: Cardiac Discharge Activity: Resume usual activity Patient Instructions: Amiodarone (By mouth), Opioid Safety, Patient Portal & Jenise Instructions Discharge Attestations Time Spent in Discharge Care*: less than 30 min Status at Discharge: Cognitive status at discharge: cognitively intact, Behavioral status at discharge: cooperative, Quality Metrics Clinical Quality Measures [ No reported AMI, CVA or VTE this stay] Coding Level of Care Code 32860 Diagnoses Paroxysmal atrial fibrillation I48.0 Atrial fibrillation type: paroxysmal Acute exacerbation of congestive heart failure I50.9 Primary hypertension I10 Hypertension type: primary hypertension Time Spent (min) 30
--- NOTE | 2025-04-05 14:47 | PC.NURSE ---
Patient was given all discharge instructions. All prescriptions were sent to the patient's preferred pharmacy. Patient's Iv was taken out and patient was stable during discharge.
== END 2025-04-05 14:46 | disposition home or self-care (01) | DRG 291 ==
LOC: ER 15:37 → CSU 15:56
PROVIDERS: Admitting Provider Student in an Organized Health Care Education/Training Program; Emergency Provider Emergency Medicine; Visit Provider Internal Medicine
DX: I11.0 Hypertensive heart disease with heart failure (principal); I50.33 Acute on chronic diastolic (congestive) heart failure; Z94.0 Kidney transplant status; D84.821 Immunodeficiency due to drugs; N39.0 Urinary tract infection, site not specified; Z94.4 Liver transplant status; I48.0 Paroxysmal atrial fibrillation; I49.3 Ventricular premature depolarization; I44.7 Left bundle-branch block, unspecified; E78.5 Hyperlipidemia, unspecified; I27.20 Pulmonary hypertension, unspecified; G31.84 Mild cognitive impairment of uncertain or unknown etiology; E03.9 Hypothyroidism, unspecified; Z79.01 Long term (current) use of anticoagulants; Z79.621 Long term (current) use of calcineurin inhibitor; Z86.73 Personal history of transient ischemic attack (TIA), and cerebral infarction without residual deficits
CPT/HCPCS: 36415; 51702; 71045; 80053; 81001; 82248; 83605; 83735; 83880; 84443; 84484; 85025; 86140; 87040; 87086; 93005; 93306; 93312; 93320; 93325; 96372; 96374; 96375; 99285; A4222; J0283; J0692; J1644; J1938; J2470; J2704; J3475; J9999

== ENCOUNTER → 2025-04-14 10:24 | Outpatient (BNVA) | payer MEDICARE, SELFPAY | PROVIDERS: Visit Provider Nurse Practitioner Family | DX: I48.0 Paroxysmal atrial fibrillation (principal); Z79.01 Long term (current) use of anticoagulants; I11.0 Hypertensive heart disease with heart failure; I50.30 Unspecified diastolic (congestive) heart failure; I49.3 Ventricular premature depolarization; R51.9 Headache, unspecified; R42 Dizziness and giddiness; G47.00 Insomnia, unspecified; Z86.73 Personal history of transient ischemic attack (TIA), and cerebral infarction without residual deficits | CPT/HCPCS: 93005; 99213 ==

== ENCOUNTER → 2025-05-31 11:53 | Outpatient (BNVA) | payer MEDICARE, SELFPAY | PROVIDERS: PCP Electrodiagnostic Medicine; Visit Provider Internal Medicine Cardiovascular Disease | DX: I48.20 Chronic atrial fibrillation, unspecified (principal); I49.3 Ventricular premature depolarization; I11.0 Hypertensive heart disease with heart failure; I50.30 Unspecified diastolic (congestive) heart failure; R42 Dizziness and giddiness; Z86.73 Personal history of transient ischemic attack (TIA), and cerebral infarction without residual deficits; R07.9 Chest pain, unspecified | CPT/HCPCS: 93005; 99214 ==

== ENCOUNTER 2025-06-17 12:22 | Observation (INO) | payer MEDICARE, SELFPAY ==
[2025-06-17] VITALS (9 sets, daily range): BP systolic 112–144; BP diastolic 52–95; PULSE 53–66; RESP 17–19; TEMP 36.5–36.6; O2SAT 90–95; BMI 27.0
--- OUTSIDE RECORDS SUMMARY | 2025-06-17 12:28 | XMS_ITS | Encounter Summary ---
Author Organization [facility] Address [address] [place] [address] Care Team Providers Care Steel Burner Name Role Phone Smith Martínez DO Primary Care Provide r Encounter Details Date Type Department Care Team (Late st Contact Info) Description 08/15/2005 Outpatient Historical [facility] Imaging Services-Kyle Beauchamp [place] [address] [place] [address] Sloan Vickers MD Critical access hospital [facility] [address] [place] [address] Social History Tobacco Use Types Packs/Day Years Used Date Smoking Tobacco: Never Assessed Comments Unknown Sex and Gender Information Value Date Recorded Sex Assigned at Not on file 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
--- OUTSIDE RECORDS SUMMARY | 2025-06-17 12:28 | XMS_ITS | Encounter Summary ---
Author Organization [facility] Address [address] [place] [address] Care Team Providers Care Box Office Attendant Name Role Phone Smith Martínez Primary Care [...] on file Legal Sex Female 6:13 AM Gender Identity Not on file Sexual Orientation [...] (06/08/2008 12:22 PM CDT) PATHOLOGY/CYT OLOGY REPORT [facility] Anatomic Pathology Dept [facility] [address] Patient: ECHO WRIGHT Accn No: [id number] Collected: 06/08/2008 12:22:00 PM CYTOLOGY NON-GYNECOLOGIC FINAL [...] 12:04 PM CDT) MONOCYTE, FLD 23 % [facility] COLOR, FLD Yellow [facility] NEUTROPHILS, FLD 7 % [facility] WBC, FLD 110 /mm3 [facility] SOURCE FLUID Ascites [facility] MACROPHAGE, FLD 19 % [facility] LYMPHOCYTE, FLD 49 % [facility] APPEARANCE, BODY FLUID Clear [facility] MESOTHELIAL, FLD 2 % [facility] RBC, FLD 160 /mm3 [facility] 06/08/2008 12:0 4 PM CDT 06/08/2008 12:05 PM CDT Christiano Ramírez MD BODY FLUIDS AND STOOLS Final Re sult Performing Organization Address [facility] Phone Number INTERFACE SYSTEM Refer to clinic/hospital department [facility] CLIA# [id number] [address] [place] [address] * ALBUMIN LEVEL, BODY FLUID (06/08/2008 12:04 PM CDT) ALBUMIN, FLD <1.0 g/dL [facility] SOURCE FLUID Ascites [facility] 06/08/2008 12:0 4 PM CDT 06/08/2008 12:04 PM CDT Christiano Ramírez MD BODY FLUIDS AND STOOLS Final Re sult Performing Organization Address [facility] Phone Number INTERFACE SYSTEM Refer to clinic/hospital department [facility] CLIA# [id number] [address] [place] [address] * US GUIDED ASPIRATION (06/08/2008 11:47 AM [...] By: Kylee Mcclendon M.D. Date Signed: 06/08/08 [facility] Procedure Note Kylee Mcclendon MD - 06/08/2008 [...] By: Kylee Mcclendon M.D. Date Signed: 06/08/08 [facility] us Christiano Ramírez MD ORDERABLES Final Result * PATHOLOGY (06/08/2008 11:08 AM CDT) PATHOLOGY/CYT OLOGY REPORT [facility] Anatomic Pathology Dept [address] [facility] [address] Patient: ECHO WRIGHT Accn No: [id number] Collected: 06/08/2008 11:08:00 AM SURGICAL PATHOLOGY FINAL REPORT Diagnosis A. Cell block, ascites fluid - negative for malignancy. Augusto Chavez M.D. (Electronically signed by) Verified: 06/09/08 SEC/SEC Clinical Information Ascitic fluid for cell block, Cytology [id number]. Specimen Source ACell Block, ASCITES FLUID Microscopic [...] APTT (06/08/2008 10:38 AM CDT) INR 1.4 [facility] Comment: Expected Values for INR: DVT/PE Goal INR 2.5; range 2.0 - 3.0 Valve Replacement Tissue Goal INR 2.5; range 2.0 - 3.0 Mechanical Goal INR 3.0; range 2.5 - 3.5 POST-TX Goal INR 2.5; range 2.0 - 3.0 or Goal 3.0; range 2.5 - 3.5 Atrial Fibrillation Goal INR 2.5; range 2.0 - 3.0 Ischemic Stroke Goal INR 2.5; range 2.0 - 3.0 For additional information see Guidelines for Anticoagulation available from the pharmacy James Matos [phone] PTT 37.6(H) 22.5 - 36.[address] [facility] Comment: Therapeutic Range: Hi-level PE/DVT heparin protocol 80.1 -95.0 sec Lo-level PE/DVT heparin protocol 67.1 - 80.0 sec Cardiac Heparin Protocol 67.1 - 85.0 sec Neuro Heparin Protocol 67.1 - 80.0 sec As of 11/12/2007 note change in APTT Normal Range. PROTIME 18.8(H) 12.8 - 15.[address] [facility] Comment:As of 2007 not e change in normal range. Blood specimen (specimen) 06/08/2008 10:38 AM CDT 06/08/2008 10:43 AM CDT Christiano Ramírez MD HEMATOLOGY ORDERABLES Edited Performing Organization Address [facility] de Phone Number INTERFACE SYSTEM Refer to clinic/hospital department [facility] CLIA# [id number] [address] [place] [address] * (ABNORMAL) PLATELET COUNT (06/08/2008 10:38 AM CDT) PLATELETS 38(L) 140 - 440 K/[address] [facility] Blood specimen (specimen) 06/08/2008 10:38 AM CDT 06/08/2008 10:43 AM CDT Christiano Ramírez MD HEMATOLOGY ORDERABLES Final Res ult Performing Organization Address [facility] de Phone Number INTERFACE SYSTEM Refer to clinic/hospital department 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
--- OUTSIDE RECORDS SUMMARY | 2025-06-17 12:28 | XMS_ITS | Encounter Summary ---
Author Organization [facility] Address [address] [place] [address] Care Team Providers Care Brazing Machine Operator Automatic Name Role Phone Smith Martínez DO Primary Care Provide r Encounter Details Date Type Department Care Team (Latest Contact Info) Description 09/24/2005 Outpatient [facility] Gastroenterology- [address] [place] [address] Sloan Vickers MD [address] [place] [address] [address] [place] [address] ABNORMAL FINDINGS-GI TRACT (Primary Dx); ESOPH VARICES W/O BLEED (CMS/HCC); Acute gastritis; DUODENITIS W/O HEMORRHAGE Social History Tobacco Use Types Packs/Day Years Used Date Smoking Tobacco: Never Assessed Comments Unknown Sex and Gender Information Value Date Recorded Sex Assigned at Not on file 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 Gender Identity Not on file Sexual Orientation Not on file documented as of this encounter Plan of Treatment Not on file documented as of this encounter Visit Diagnoses Diagnosis Nonspecific (abnormal) findings on radiological and other examination of gastrointestinal tract- Primary Esophageal varices without mention of bleeding Acute gastritis Acute gastritis without mention of hemorrhage Duodenitis without mention of hemorrhage documented in this encounter Care Teams Brazing Machine Operator Automatic Relationship Specialty Start Date End Date Smith Martínez DO [address] [place] [address] PCP - General Internal Medicine 08/06/18 documented as of this encounter
--- OUTSIDE RECORDS SUMMARY | 2025-06-17 12:28 | XMS_ITS | Encounter Summary ---
Author Organization [facility] Address [address] [place] [address] Care Team Providers Care Ob/Gyn Physician Name Role Phone Smith Martínez DO Primary Care Provide r Encounter Details Date Type Department Care Team (Late st Contact Info) Description 03/03/2006 Outpatient [facility] [address] [facility] [address] [place] [address] Renea Gruber MD NO ADDRESS ON FILE Other Screening Mammogram (Primary Dx); Chronic Hepatitis C without Mention of Hepatic Coma (CMS/HCC); Vaccine for viral hepatitis Social History Tobacco Use Types Packs/Day Years Used Date Smoking Tobacco: Never Assessed Comments Unknown Sex and Gender Information Value Date Recorded Sex Assigned at Not on file 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
--- OUTSIDE RECORDS SUMMARY | 2025-06-17 12:28 | XMS_ITS | Encounter Summary ---
Author Organization [facility] Address [address] [place] [address] Care Team Providers Care Vaccine Customer Representative Name Role Phone Smith Martínez Primary [...] on file Legal Sex Female 6:13 AM SPECTROGRAPHIC ANALYST Gender Identity Not on file Sexual Orientation Not on file documented as of this encounter Plan of Treatment Not on file documented as of this encounter Procedures Procedure Name Priority Date/Time Associated Diagnosis Comments US GUIDED ASPIRATION Routine 08/02/2008 11:02 AM SPECTROGRAPHIC ANALYST PT AND APTT Stat 08/02/2008 10:26 AM SPECTROGRAPHIC ANALYST PLATELET COUNT Stat 08/02/2008 10:26 AM SPECTROGRAPHIC ANALYST documented in this encounter Results * US GUIDED ASPIRATION (08/02/2008 11:02 AM SPECTROGRAPHIC ANALYST) Anatomical Region Laterality Modality Other 08/02/2008 11:0 2 AM SPECTROGRAPHIC ANALYST Narrative 08/03/2008 7:43 AM SPECTROGRAPHIC ANALYST Ultrasound Guided Paracentesis: Date: 08/02/2008 Brief History: [...] (ABNORMAL) PT AND APTT (08/02/2008 10:26 AM SPECTROGRAPHIC ANALYST) PROTIME 19.0(H) 12.8 - 15.[address] [facility] Comment:As of 2007 not e change in normal range. PTT 36.5 22.5 - 36.[address] [facility] Comment: Therapeutic Range: Hi-level PE/DVT heparin protocol 80.1 -95.0 sec Lo-level PE/DVT heparin protocol 67.1 - 80.0 sec Cardiac Heparin Protocol 67.1 - 85.0 sec Neuro Heparin Protocol 67.1 - 80.0 sec As of 11/12/2007 note change in APTT Normal Range. INR 1.4 [facility] Comment: Expected Values for INR: DVT/PE Goal INR 2.5; range 2.0 - 3.0 Valve Replacement Tissue Goal INR 2.5; range 2.0 - 3.0 Mechanical Goal INR 3.0; range 2.5 - 3.5 POST-OR Goal INR 2.5; range 2.0 - 3.0 or Goal 3.0; range 2.5 - 3.5 Atrial Fibrillation Goal INR 2.5; range 2.0 - 3.0 Ischemic Stroke Goal INR 2.5; range 2.0 - 3.0 For additional information see Guidelines for Anticoagulation available from the pharmacy James Matos [phone] Blood specimen (specimen) 08/02/2008 10:26 AM SPECTROGRAPHIC ANALYST 08/02/2008 10:26 AM SPECTROGRAPHIC ANALYST us Christiano Ramírez MD HEMATOLOGY ORDERABLES Edited INTERFACE SYSTEM Refer to clinic/hospital department [facility] CLIA# [id number] [address] [place] [address] * (ABNORMAL) PLATELET COUNT (08/02/2008 10:26 AM SPECTROGRAPHIC ANALYST) PLATELET EST. Decreased( A) Normal [facility] PLATELETS 35(L) 140 - [address] K/[address] [facility] Blood specimen (specimen) 08/02/2008 10:26 AM SPECTROGRAPHIC ANALYST 08/02/2008 10:26 AM SPECTROGRAPHIC ANALYST us Christiano Ramírez MD HEMATOLOGY ORDERABLES Edited INTERFACE SYSTEM Refer to clinic/hospital department [facility] CLIA# [id number] [address] [place] [address] documented in this encounter Visit Diagnoses Diagnosis Other ascites documented in this encounter Care Teams Vaccine Customer Representative Relationship Specialty Start Date End Date Smith Martínez DO [address] [address] PCP - General Internal Medicine 08/06/18 documented as of this encounter
--- OUTSIDE RECORDS SUMMARY | 2025-06-17 12:28 | XMS_ITS | Encounter Summary ---
Author Organization [facility] Address [address] [place] [address] Care Team Providers Care Tack Cleaner Name Role Phone Smith Martínez Primary Care Provide r Encounter Details Date Type Department Care Team (Latest Contact Info) Description 09/24/2005 Outpatient Historical [facility] [address] [place] [address] Sloan Vickers MD [facility]ly [facility] Dr Lyons [address] [place] [phone] GASTRITIS/DUODEN NOS W/O HEMORRH (Primary Dx) Social History Tobacco Use Types Packs/Day Years Used Date Smoking Tobacco: Never Assessed Comments Unknown Sex and Gender Information Value Date Recorded Sex Assigned at Not on file Legal Sex Female 6:13 AM OSTEOPATHIC NEUROLOGIST Gender Identity Not on file Sexual Orientation Not on file documented as of this encounter Plan of Treatment Not on file documented as of this encounter Procedures Procedure Name Priority Date/Time Associated Diagnosis Comments DIFFERENTIAL, MANUAL Routine 09/24/2005 2:25 PM OSTEOPATHIC NEUROLOGIST CBC WITH DIFFERENTIAL Routine 09/24/2005 2:25 PM OSTEOPATHIC NEUROLOGIST HEPATIC FUNCTION PANEL Routine 09/24/2005 2:25 PM OSTEOPATHIC NEUROLOGIST documented in this encounter Results * (ABNORMAL) HEPATIC FUNCTION PANEL (09/24/2005 2:25 PM OSTEOPATHIC NEUROLOGIST) Pathologist [facility] ALKALINE PHOSPHATASE 91 38 - 126 IU/L [...] 0.4 mg/dL INTERFACE SYSTEM 09/24/2005 2:25 PM OSTEOPATHIC NEUROLOGIST Historical Provider CHEMISTRY ORDERABLES Final R esult Performing Organization Address City/[facility]/ZIP Co de Phone Number INTERFACE SYSTEM Refer to clinic/hospital department * (ABNORMAL) DIFFERENTIAL, MANUAL (09/24/2005 2:25 PM OSTEOPATHIC NEUROLOGIST) [facility] NEUTROPHILS, SEG 76(H) 36 - 66 % [...] Few(A) INTE RFACE SYSTEM 09/24/2005 2:25 PM OSTEOPATHIC NEUROLOGIST Historical Provider HEMATOLOGY ORDERABLES COM Fi nal Result INTERFACE SYSTEM Refer to clinic/hospital department * (ABNORMAL) CBC WITH DIFFERENTIAL (09/24/2005 2:25 PM OSTEOPATHIC NEUROLOGIST) Pathologist [facility] HEM COMMENT Smear Reviewed Automated Diff INTERFACE [...] 0.2 K/ul INTERFACE SYSTEM 09/24/2005 2:25 PM OSTEOPATHIC NEUROLOGIST us Historical Provider HEMATOLOGY ORDERABLES Final Result INTERFACE SYSTEM Refer to clinic/hospital department documented in this encounter Visit Diagnoses Diagnosis Unspecified gastritis and gastroduodenitis without mention of hemorrhage- Primary documented in this encounter Care Teams Tack Cleaner Relationship Specialty Start Date End Date Smith Martínez DO [address] [phone] PCP - General Internal Medicine 08/06/18 documented as of this encounter
--- OUTSIDE RECORDS SUMMARY | 2025-06-17 12:28 | XMS_ITS | Encounter Summary ---
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
--- OUTSIDE RECORDS SUMMARY | 2025-06-17 12:28 | XMS_ITS | Encounter Summary ---
Author Organization [facility] Address [address] [place] [address] Care Team Providers Care Hospital Clerk Name Role Phone Smith Martínez Primary Care [...] on file Legal Sex Female 6:13 AM CENTER MGR Gender Identity Not on file Sexual Orientation [...] 4:41 PM CDT) BANDS, FLD 1 % [facility] WBC, FLD 160 /mm3 [facility] LYMPHOCYTE, FLD 41 % [facility] APPEARANCE, BODY FLUID Slightly Cloudy [facility] MACROPHAGE, FLD 21 % [facility] RBC, FLD 318 /mm3 [facility] COLOR, FLD Yellow [facility] MESOTHELIAL, FLD 13 % [facility] NEUTROPHILS, FLD 24 % [facility] SOURCE FLUID Ascites [facility] 05/19/2008 4:41 PM CDT 05/19/2008 4:41 PM CDT Christiano Ramírez MD BODY FLUIDS AND STOOLS Final Re sult INTERFACE SYSTEM Refer to clinic/hospital department [facility] CLIA# [id number] [address] [place] [address] * US GUIDED ASPIRATION (05/19/2008 2:05 PM [...] CDT) PROTIME 17.8(H) 12.8 - 15.[address] [facility] Comment:As of 2007 not e change in normal range. PTT 37.1(H) 22.5 - 36.[address] [facility] Comment: Therapeutic Range: Hi-level PE/DVT heparin protocol 80.1 -95.0 sec Lo-level PE/DVT heparin protocol 67.1 - 80.0 sec Cardiac Heparin Protocol 67.1 - 85.0 sec Neuro Heparin Protocol 67.1 - 80.0 sec As of 11/12/2007 note change in APTT Normal Range. INR 1.3 [facility] Comment: Expected Values for INR: DVT/PE Goal INR 2.5; range 2.0 - 3.0 Valve Replacement Tissue Goal INR 2.5; range 2.0 - 3.0 Mechanical Goal INR 3.0; range 2.5 - 3.5 POST-NV Goal INR 2.5; range 2.0 - 3.0 or Goal 3.0; range 2.5 - 3.5 Atrial Fibrillation Goal INR 2.5; range 2.0 - 3.0 Ischemic Stroke Goal INR 2.5; range 2.0 - 3.0 For additional information see Guidelines for Anticoagulation available from the pharmacy James Matos. [phone] Blood specimen (specimen) 05/19/2008 1:06 PM CDT 05/19/2008 1:06 PM CDT Christiano Ramírez MD HEMATOLOGY ORDERABLES Edited Performing Organization Address City/[facility] de Phone Number INTERFACE SYSTEM Refer to clinic/hospital department [facility] CLIA# [id number] [address] [place] [address] * (ABNORMAL) PLATELET COUNT (05/19/2008 12:24 PM CDT) PLATELETS 57(L) 140 - 440 K/ul [facility] Blood specimen (specimen) 05/19/2008 12:24 PM CDT 05/19/2008 12:24 PM CDT Christiano Ramírez MD HEMATOLOGY ORDERABLES Final Res ult Performing Organization Address City/[facility]/ZIP Co de Phone Number INTERFACE SYSTEM Refer to clinic/hospital department [facility] CLIA# [id number] [address] [place] [address] documented in this encounter Visit Diagnoses Diagnosis Other ascites Cirrhosis of liver without mention of alcohol (CMS/HCC) Cirrhosis of liver without mention of alcohol Unspecified viral hepatitis C without hepatic coma Unspecified essential hypertension documented in this encounter Care Teams Hospital Clerk Relationship Specialty Start Date End Date Smith Martínez DO [address] [address] PCP - General Internal Medicine 08/06/18 documented as of this encounter
--- OUTSIDE RECORDS SUMMARY | 2025-06-17 12:28 | XMS_ITS | Encounter Summary ---
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); Chronic Hepatitis C without Mention of Hepatic Coma (CMS/HCC); Vaccine for viral hepatitis Social History Tobacco Use Types Packs/Day Years Used Date Smoking Tobacco: Never Assessed Comments Unknown Sex and Gender Information Value Date Recorded Sex Assigned at Not on file 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
--- OUTSIDE RECORDS SUMMARY | 2025-06-17 12:28 | XMS_ITS | Encounter Summary ---
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 Gender Identity Not on file Sexual Orientation Not on file documented as of this encounter Plan of Treatment Not on file documented as of this encounter Procedures Procedure Name Priority Date/Time Associated Diagnosis Comments US GUIDED ASPIRATION Routine 07/05/2008 1:23 PM WASTEWATER PLANT CIVIL ENGINEER PLATELET COUNT Stat 07/05/2008 12:27 PM WASTEWATER PLANT CIVIL ENGINEER PT AND APTT Stat 07/05/2008 12:22 PM WASTEWATER PLANT CIVIL ENGINEER documented in this encounter Results * US GUIDED ASPIRATION (07/05/2008 1:23 PM WASTEWATER PLANT CIVIL ENGINEER) Anatomical Region Laterality Modality Other 07/05/2008 1:23 PM WASTEWATER PLANT CIVIL ENGINEER Narrative 07/09/2008 5:54 PM WASTEWATER PLANT CIVIL ENGINEER Ultrasound Guided Paracentesis: Date: 07/05/2008. Brief History: [...] * (ABNORMAL) PLATELET COUNT (07/05/2008 12:27 PM WASTEWATER PLANT CIVIL ENGINEER) PLATELETS 65(L) 140 - 440 K/ul [facility] Blood specimen (specimen) 07/05/2008 12:27 PM WASTEWATER PLANT CIVIL ENGINEER 07/05/2008 12:34 PM WASTEWATER PLANT CIVIL ENGINEER Christiano Ramírez MD HEMATOLOGY ORDERABLES Final Res ult INTERFACE SYSTEM Refer to clinic/hospital department [facility] CLIA# [id number] [address] [place] [address] * (ABNORMAL) PT AND APTT (07/05/2008 12:22 PM WASTEWATER PLANT CIVIL ENGINEER) PROTIME 18.0(H) 12.8 - 15.8 Secs [facility] Comment:As of 2007 not e change in normal range. PTT 30.2 22.5 - 36.5 Secs [facility] Comment: Therapeutic Range: Hi-level PE/DVT heparin protocol 80.1 -95.0 sec Lo-level PE/DVT heparin protocol 67.1 - 80.0 sec Cardiac Heparin Protocol 67.1 - 85.0 sec Neuro Heparin Protocol 67.1 - 80.0 sec As of 11/12/2007 note change in APTT Normal Range. INR 1.3 [facility] Comment: Expected Values for INR: [...] from the pharmacy Lucy Rangel, James D. [phone] Blood specimen (specimen) 07/05/2008 12:22 PM WASTEWATER PLANT CIVIL ENGINEER 07/05/2008 12:34 PM WASTEWATER PLANT CIVIL ENGINEER us Christiano Ramírez MD HEMATOLOGY ORDERABLES Edited INTERFACE SYSTEM Refer to clinic/hospital department [facility] CLIA# [id number] [address] [place] [address] documented in this encounter Visit Diagnoses Diagnosis Other ascites documented in this encounter Care Teams Refueler Relationship Specialty Start Date End Date Smith Martínez DO [address] [address] PCP - General Internal Medicine 08/06/18 documented as of this encounter
--- OUTSIDE RECORDS SUMMARY | 2025-06-17 12:28 | XMS_ITS | Encounter Summary ---
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
--- OUTSIDE RECORDS SUMMARY | 2025-06-17 12:28 | XMS_ITS | Encounter Summary ---
Author Organization [facility] Address [address] [place] [address] Care Team Providers Care Manufacturing Technology Professor Name Role Phone Smith Martínez DO Primary Care Provide r Encounter Details Date Type Department Care Team (Latest Contact Info) Description 05/13/2005 Outpatient [facility] Gastroenterology[address] [place] [address] Sloan Vickers MD [address] [place] [address] Dr [address]ons [address] [place] [address] VIR HEP NEC W/O COMA W HEP C CHRON (CMS/HCC) (Primary Dx); CIRRHOSIS OF LIVER NOS (CMS/HCC) Social History Tobacco Use Types Packs/Day Years Used Date Smoking Tobacco: Never Assessed Comments Unknown Sex and Gender Information Value Date Recorded Sex Assigned at Not on file 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
--- OUTSIDE RECORDS SUMMARY | 2025-06-17 12:28 | XMS_ITS | Encounter Summary ---
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 Date Signed: 06/22/08 [facility] ([place] [place]) Procedure Note Herberth Jurado - 06/22/2008 ULTRASOUND [...] APTT (06/22/2008 7:17 AM CDT) INR 1.3 [facility] Comment: Expected Values [...] Anticoagulation available from the pharmacy James Matos. [phone] PTT 29.2 22.5 - 36.5 Secs [facility] Comment: Therapeutic Range: Hi-level PE/DVT heparin protocol 80.1 -95.0 sec Lo-level PE/DVT heparin protocol 67.1 - 80.0 sec Cardiac Heparin Protocol 67.1 - 85.0 sec Neuro Heparin Protocol 67.1 - 80.0 sec As of 11/12/2007 note change in APTT Normal Range. PROTIME 17.7(H) 12.8 - 15.8 Secs [facility] Comment:As of 2007 not e change in normal range. Blood specimen (specimen) 06/22/2008 7:17 AM CDT 06/22/2008 7:17 AM CDT Christiano Ramírez MD HEMATOLOGY ORDERABLES Edited Performing Organization Address City/[facility] de Phone Number INTERFACE SYSTEM Refer to clinic/hospital department [facility] CLIA# [id number] [address] [place] [address] * (ABNORMAL) PLATELET COUNT (06/22/2008 7:17 AM CDT) PLATELETS 36(L) 140 - 440 K/ul [facility] Blood specimen (specimen) 06/22/2008 7:17 AM CDT 06/22/2008 7:17 AM CDT us Christiano Ramírez MD HEMATOLOGY ORDERABLES Final Res ult Performing Organization Address [facility] Phone Number INTERFACE SYSTEM Refer to clinic/hospital department [facility] CLIA# [id number] [address] [place] [address] documented in this encounter Visit Diagnoses Diagnosis Other ascites Unspecified viral hepatitis C without hepatic coma 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
--- OUTSIDE RECORDS SUMMARY | 2025-06-17 12:28 | XMS_ITS | Encounter Summary ---
Author Organization [facility] Address [address] [place] [address] Care Team Providers Care Labor Economist Name Role Phone Smith Martínez DO Primary Care Provide r Encounter Details Date Type Department Care Team (Latest Contact Info) Description 04/18/2005 Outpatient [facility] Gastroenterology[address] [place] [address] Sloan Vickers MD [address] [place] [address] Dr Lyons [address] [place] [address] VIR HEP NEC W/O COMA W HEP C CHRON (CMS/HCC) (Primary Dx); CIRRHOSIS OF LIVER NOS (CMS/HCC) Social History Tobacco Use Types Packs/Day Years Used Date Smoking Tobacco: Never Assessed Comments Unknown Sex and Gender Information Value Date Recorded Sex Assigned at Not on file 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
--- OUTSIDE RECORDS SUMMARY | 2025-06-17 12:28 | XMS_ITS | Encounter Summary ---
Author Organization [facility] Address [address] [place] [address] Care Team Providers Care House Detective Name Role Phone Smith Martínez DO Primary Care Provide r Encounter Details Date Type Department Care Team (Latest Contact Info) Description 08/15/2005 Outpatient Historical [facility] Imaging Services-[place] [address] [place] [address] Sloan Vickers MD [address] [place] [address] Dr [address]ons [address] [place] [address] VIR HEP NEC W/O COMA W HEP C CHRON (CMS/HCC) (Primary Dx) Social History Tobacco Use Types Packs/Day Years Used Date Smoking Tobacco: Never Assessed Comments Unknown Sex and Gender Information Value Date Recorded Sex Assigned at Not on file 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
--- OUTSIDE RECORDS SUMMARY | 2025-06-17 12:28 | XMS_ITS | Encounter Summary ---
Author Organization [facility] Address [address] [place] [address] Care Team Providers Care Booth Usher Name Role Phone Smith Martínez DO Primary Care Provide r Encounter Details Date Type Department Care Team (Late st Contact Info) Description 07/15/2005 Outpatient Historical [facility] Imaging Services-[place] [address] [place] [address] Sloan Vickers MD [facility] [address] [place] [address] Social History Tobacco Use Types Packs/Day Years Used Date Smoking Tobacco: Never Assessed Comments Unknown Sex and Gender Information Value Date Recorded Sex Assigned at Not on file 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
--- OUTSIDE RECORDS SUMMARY | 2025-06-17 12:28 | XMS_ITS | Encounter Summary ---
Author Organization [facility] Address [address] [place] [address] Care Team Providers Care Wood Hacker Name Role Phone Smith Martínez Primary Care [...] on file Legal Sex Female 6:13 AM CCU NURSE Gender Identity Not on file Sexual Orientation Not on file documented as of this encounter Plan of Treatment Not on file documented as of this encounter Procedures Procedure Name Priority Date/Time Associated Diagnosis Comments US GUIDED ASPIRATION Routine 07/20/2008 9:10 AM CCU NURSE PT AND APTT Stat 07/20/2008 8:22 AM CCU NURSE PLATELET COUNT Stat 07/20/2008 8:22 AM CCU NURSE documented in this encounter Results * US GUIDED ASPIRATION (07/20/2008 9:10 AM CCU NURSE) Anatomical Region Laterality Modality Other 07/20/2008 9:10 AM CCU NURSE Narrative 07/20/2008 3:53 PM CCU NURSE ULTRASOUND GUIDED PARACENTESIS: Date: 07/20/2008 Brief History: [...] By: Blaise Correia MD Date Signed: 07/20/08 [facility] Procedure Note Blaise Correia - 07/20/2008 ULTRASOUND [...] (ABNORMAL) PT AND APTT (07/20/2008 8:22 AM CCU NURSE) PROTIME 19.5(H) 12.8 - 15.8 Secs [facility] Comment:As of 2007 not e change in normal range. PTT 35.4 22.5 - 36.5 Secs [facility] Comment: Therapeutic Range: Hi-level PE/DVT heparin protocol 80.1 -95.0 sec Lo-level PE/DVT heparin protocol 67.1 - 80.0 sec Cardiac Heparin Protocol 67.1 - 85.0 sec Neuro Heparin Protocol 67.1 - 80.0 sec As of 11/12/2007 note change in APTT Normal Range. INR 1.5 [facility] Comment: Expected Values for INR: DVT/PE Goal INR 2.5; range 2.0 - 3.0 Valve Replacement Tissue Goal INR 2.5; range 2.0 - 3.0 Mechanical Goal INR 3.0; range 2.5 - 3.5 POST-SC Goal INR 2.5; range 2.0 - 3.0 or Goal 3.0; range 2.5 - 3.5 Atrial Fibrillation Goal INR 2.5; range 2.0 - 3.0 Ischemic Stroke Goal INR 2.5; range 2.0 - 3.0 For additional information see Guidelines for Anticoagulation available from the pharmacy Lucy Rangel Pharm D. [phone] Blood specimen (specimen) 07/20/2008 8:22 AM CCU NURSE 07/20/2008 8:22 AM CCU NURSE us Christiano Ramírez MD HEMATOLOGY ORDERABLES Edited INTERFACE SYSTEM Refer to clinic/hospital department [facility] CLIA# [id number] [address] [place] [address] * (ABNORMAL) PLATELET COUNT (07/20/2008 8:22 AM CCU NURSE) PLATELETS 32(L) 140 - 440 K/ul [facility] PLATELET EST. Decreased( A) Normal [facility] Blood specimen (specimen) 07/20/2008 8:22 AM CCU NURSE 07/20/2008 8:22 AM CCU NURSE us Christiano Ramírez MD HEMATOLOGY ORDERABLES Edited INTERFACE SYSTEM Refer to clinic/hospital department [facility] CLIA# [id number] [facility] [place] [address] documented in this encounter Visit Diagnoses Diagnosis Other ascites documented in this encounter Care Teams Wood Hacker Relationship Specialty Start Date End Date Smith Martínez DO [address] [address] PCP - General Internal Medicine 08/06/18 documented as of this encounter
--- OUTSIDE RECORDS SUMMARY | 2025-06-17 12:28 | XMS_ITS | Encounter Summary ---
Author Organization [facility] Address [address] [place] [address] Care Team Providers Care Nurse Companion Name Role Phone Smith Martínez Primary Care [...] on file Legal Sex Female 6:13 AM INGOT HEADER Gender Identity Not on file Sexual Orientation Not on file documented as of this encounter Plan of Treatment Not on file documented as of this encounter Procedures Procedure Name Priority Date/Time Associated Diagnosis Comments CELL COUNT WITH DIFFERENTIAL, BODY FLUID Routine 08/16/2008 2:01 PM INGOT HEADER XR CHEST PA OR AP 1 VW Routine 08/16/2008 1:43 PM INGOT HEADER US GUIDED ASPIRATION Routine 08/16/2008 12:59 PM INGOT HEADER PATHOLOGY Routine 08/16/2008 12:10 PM INGOT HEADER US GUIDED ASPIRATION Routine 08/16/2008 12:07 PM INGOT HEADER PT AND APTT Stat 08/16/2008 10:36 AM INGOT HEADER PLATELET COUNT Stat 08/16/2008 10:36 AM INGOT HEADER PATHOLOGY Routine 08/16/2008 6:30 AM INGOT HEADER documented in this encounter Results * CELL COUNT WITH DIFFERENTIAL, BODY FLUID (08/16/2008 2:01 PM INGOT HEADER) MACROPHAGE, FLD 39 % [facility] SOURCE FLUID Pleural [facility] LYMPHOCYTE, FLD 25 % [facility] WBC, FLD 170 /mm3 [facility] RBC, FLD 385 /mm3 [facility] APPEARANCE, BODY FLUID Slightly Cloudy [facility] MESOTHELIAL, FLD 36 % [facility] COLOR, FLD Yellow [facility] 08/16/2008 2:01 PM INGOT HEADER 08/16/2008 2:01 PM INGOT HEADER Christiano Ramírez MD BODY FLUIDS AND STOOLS Edited INTERFACE SYSTEM Refer to clinic/hospital department [facility] CLIA# [id number] [address] [place] [address] * XR CHEST PA OR AP (08/16/2008 1:43 PM INGOT HEADER) Anatomical Region Laterality Modality Chest Other 08/16/2008 1:43 PM INGOT HEADER Narrative 08/16/2008 3:25 PM INGOT HEADER A single view of the chest is [...] * US GUIDED ASPIRATION (08/16/2008 12:59 PM INGOT HEADER) Anatomical Region Laterality Modality Other 08/16/2008 12:5 9 PM INGOT HEADER Narrative 08/16/2008 1:16 PM INGOT HEADER ULTRASOUND GUIDED PARACENTESIS: Date: 08/16/2008 Brief History: [...] the insertion of a 7 cm 18-gauge aka-aki networks centesis catheter, through which approximately 5,000 ML [...] By: Blaise Correia MD Date Signed: 08/22/08 [facility] Procedure Note Provider, Historical - 08/22/2008 ULTRASOUND [...] Final Result * PATHOLOGY (08/16/2008 12:10 PM INGOT HEADER) PATHOLOGY/CYT OLOGY REPORT [facility] Anatomic Pathology Dept [address] [place] [address] Patient: UMM WRIGHT Accn No: [id number] Collected: 08/16/2008 12:10:00 PM SURGICAL PATHOLOGY FINAL [...] DLS/WLS INTERFACE SYSTEM 08/16/2008 12:1 0 PM INGOT HEADER us Christiano Ramírez MD PATHOLOGY/CYTOLOGY ORDERABLES F inal Result INTERFACE SYSTEM Refer to clinic/hospital department * US GUIDED ASPIRATION (08/16/2008 12:07 PM INGOT HEADER) Anatomical Region Laterality Modality Other 08/16/2008 12:0 7 PM INGOT HEADER Narrative 08/22/2008 8:42 AM INGOT HEADER ULTRASOUND GUIDED PARACENTESIS: Date: 08/16/2008 Brief History: [...] (ABNORMAL) PT AND APTT (08/16/2008 10:36 AM INGOT HEADER) INR 1.4 [facility] Comment: Expected Values for INR: DVT/PE Goal INR 2.5; range 2.0 - 3.0 Valve Replacement Tissue Goal INR 2.5; range 2.0 - 3.0 Mechanical Goal INR 3.0; range 2.5 - 3.5 POST-NE Goal INR 2.5; range 2.0 - 3.0 or Goal 3.0; range 2.5 - 3.5 Atrial Fibrillation Goal INR 2.5; range 2.0 - 3.0 Ischemic Stroke Goal INR 2.5; range 2.0 - 3.0 For additional information see Guidelines for Anticoagulation available from the pharmacy James Matos. [phone] PTT 35.4 22.5 - 36.5 Secs [facility] Comment: Therapeutic Range: Hi-level PE/DVT heparin protocol 80.1 -95.0 sec Lo-level PE/DVT heparin protocol 67.1 - 80.0 sec Cardiac Heparin Protocol 67.1 - 85.0 sec Neuro Heparin Protocol 67.1 - 80.0 sec As of 11/12/2007 note change in APTT Normal Range. PROTIME 18.3(H) 12.8 - 15.8 Secs [facility] Comment:As of 2007 not e change in normal range. Blood specimen (specimen) 08/16/2008 10:36 AM INGOT HEADER 08/16/2008 10:39 AM INGOT HEADER Christiano Ramírez MD HEMATOLOGY ORDERABLES Edited INTERFACE SYSTEM Refer to clinic/hospital department [facility] CLIA# [id number] [address] [place] [address] * (ABNORMAL) PLATELET COUNT (08/16/2008 10:36 AM INGOT HEADER) PLATELETS 58(L) 140 - 440 K/ul [facility] Blood specimen (specimen) 08/16/2008 10:36 AM INGOT HEADER 08/16/2008 10:39 AM INGOT HEADER Christiano Ramírez MD HEMATOLOGY ORDERABLES Final Res ult Performing Organization Address [facility] de Phone Number INTERFACE SYSTEM Refer to clinic/hospital department [facility] CLIA# [id number] [address] [place] [address] * PATHOLOGY (08/16/2008 6:30 AM INGOT HEADER) PATHOLOGY/CYT OLOGY REPORT [facility] Anatomic Pathology Dept [address] [place] [address] Patient: UMM WRIGHT Accn No: [id number] Collected: 08/16/2008 6:30:00 AM CYTOLOGY NON-GYNECOLOGIC FINAL [...] cells present. INTERFACE SYSTEM 08/16/2008 6:30 AM INGOT HEADER Christiano Ramírez MD PATHOLOGY/CYTOLOGY ORDERABLES F inal Result Performing Organization Address [facility] Co de Phone Number INTERFACE SYSTEM Refer to clinic/hospital department documented in this encounter Visit Diagnoses Diagnosis Other ascites documented in this encounter Care Teams Nurse Companion Relationship Specialty Start Date End Date Smith Martínez DO [address] [address] PCP - General Internal Medicine 08/06/18 documented as of this encounter
--- OUTSIDE RECORDS SUMMARY | 2025-06-17 12:28 | XMS_ITS | Encounter Summary ---
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
--- OUTSIDE RECORDS SUMMARY | 2025-06-17 12:28 | XMS_ITS | Encounter Summary ---
Author Organization [facility] Address [address] [place] [address] Care Team Providers Care Coder Operator Name Role Phone Smith Martínez DO Primary Care Provide r Encounter Details Date Type Department Care Team (Latest Contact Info) Description 04/16/2006 Outpatient Historical [facility] Endoscopy [address] 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
--- OUTSIDE RECORDS SUMMARY | 2025-06-17 12:28 | XMS_ITS | Encounter Summary ---
Author Organization [facility] Address [address] [place] [address] Care Team Providers Care Chemist Internship Name Role Phone Smith Martínez DO Primary Care Provide r Encounter Details Date Type Department Care Team (Latest Contact Info) Description 12/20/2005 Outpatient [facility] Gastroenterology[address] [place] [address] Sloan Vickers MD [facility] [address] [place] [address] Esophageal Varices without Mention of Bleeding (CMS/HCC) (Primary Dx) Social History Tobacco Use Types Packs/Day Years Used Date Smoking Tobacco: Never Assessed Comments Unknown Sex and Gender Information Value Date Recorded Sex Assigned at Not on file 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
--- OUTSIDE RECORDS SUMMARY | 2025-06-17 12:28 | XMS_ITS | Encounter Summary ---
Author Organization [facility] Address [address] [place] [address] Care Team Providers Care Health Record Technician Name Role Phone Smith Martínez Primary Care [...] on file Legal Sex Female 6:13 AM FOOD OR BAGGAGE HANDLING RAMPMAN Gender Identity Not on file Sexual Orientation Not on file documented as of this encounter Plan of Treatment Not on file documented as of this encounter Procedures Procedure Name Priority Date/Time Associated Diagnosis Comments US GUIDED ASPIRATION Routine 07/26/2008 8:48 AM FOOD OR BAGGAGE HANDLING RAMPMAN PT AND APTT Stat 07/26/2008 8:00 AM FOOD OR BAGGAGE HANDLING RAMPMAN PLATELET COUNT Stat 07/26/2008 8:00 AM FOOD OR BAGGAGE HANDLING RAMPMAN documented in this encounter Results * US GUIDED ASPIRATION (07/26/2008 8:48 AM FOOD OR BAGGAGE HANDLING RAMPMAN) Anatomical Region Laterality Modality Other 07/26/2008 8:48 AM FOOD OR BAGGAGE HANDLING RAMPMAN Narrative 07/26/2008 1:06 PM FOOD OR BAGGAGE HANDLING RAMPMAN ULTRASOUND GUIDED PARACENTESIS: Date: 07/26/2008 Brief History: [...] By: Kylee Mcclendon M.D. Date Signed: 07/26/08 [facility] Procedure Note Kylee Mcclendon MD - 07/26/2008 [...] (ABNORMAL) PT AND APTT (07/26/2008 8:00 AM FOOD OR BAGGAGE HANDLING RAMPMAN) PROTIME 19.4(H) 12.8 - 15.8 Secs [facility] Comment:ansiAs of 08/21/2007 note change in normal range. INR 1.5 [facility] Comment: Expected Values for INR: DVT/PE Goal INR 2.5; range 2.0 - 3.0 Valve Replacement Tissue Goal INR 2.5; range 2.0 - 3.0 Mechanical Goal INR 3.0; range 2.5 - 3.5 POST-AR Goal INR 2.5; range 2.0 - 3.0 or Goal 3.0; range 2.5 - 3.5 Atrial Fibrillation Goal INR 2.5; range 2.0 - 3.0 Ischemic Stroke Goal INR 2.5; range 2.0 - 3.0 For additional information see Guidelines for Anticoagulation available from the pharmacy James Matos [phone] PTT 37.1(H) 22.5 - 36.5 Secs [facility] Comment: Therapeutic Range: Hi-level PE/DVT heparin protocol 80.1 -95.0 sec Lo-level PE/DVT heparin protocol 67.1 - 80.0 sec Cardiac Heparin Protocol 67.1 - 85.0 sec Neuro Heparin Protocol 67.1 - 80.0 sec As of 11/12/2007 note change in APTT Normal Range. Blood specimen (specimen) 07/26/2008 8:00 AM FOOD OR BAGGAGE HANDLING RAMPMAN 07/26/2008 8:05 AM FOOD OR BAGGAGE HANDLING RAMPMAN Christiano Ramírez MD HEMATOLOGY ORDERABLES Edited INTERFACE SYSTEM Refer to clinic/hospital department [facility] CLIA# [id number] [place] [address] * (ABNORMAL) PLATELET COUNT (07/26/2008 8:00 AM FOOD OR BAGGAGE HANDLING RAMPMAN) PLATELETS 42(L) 140 - 440 K/ul [facility] Blood specimen (specimen) 07/26/2008 8:00 AM FOOD OR BAGGAGE HANDLING RAMPMAN 07/26/2008 8:05 AM FOOD OR BAGGAGE HANDLING RAMPMAN us Christiano Ramírez MD HEMATOLOGY ORDERABLES Final Res ult INTERFACE SYSTEM Refer to clinic/hospital department [facility] CLIA# [id number] [facility] [place] [address] documented in this encounter Visit Diagnoses Diagnosis Other ascites documented in this encounter Care Teams Health Record Technician Relationship Specialty Start Date End Date Smith Martínez DO [address] [address] PCP - General Internal Medicine 08/06/18 documented as of this encounter
--- OUTSIDE RECORDS SUMMARY | 2025-06-17 12:28 | XMS_ITS | Encounter Summary ---
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
--- OUTSIDE RECORDS SUMMARY | 2025-06-17 12:28 | XMS_ITS | Encounter Summary ---
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
--- OUTSIDE RECORDS SUMMARY | 2025-06-17 12:28 | XMS_ITS | Encounter Summary ---
Author Organization [facility] Address [address] [place] [address] Care Team Providers Care Sheet Metal Installer Name Role Phone Smith Martínez DO Primary Care Provide r Encounter Details Date Type Department Care Team (Latest Contact Info) Description 03/03/2006 Outpatient [facility] Breast Center [facility] [address] [place] [address] Amauri Hendrix MD NO ADDRESS ON FILE Other Screening Mammogram (Primary Dx) Social History Tobacco Use Types Packs/Day Years Used Date Smoking Tobacco: Never Assessed Comments Unknown Sex and Gender Information Value Date Recorded Sex Assigned at Not on file Legal Sex Female 6:13 AM 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
--- OUTSIDE RECORDS SUMMARY | 2025-06-17 12:28 | XMS_ITS | Encounter Summary ---
Author Organization [facility] Address [address] [place] [address] Care Team Providers Care Medart Operator Name Role Phone Smith Martínez DO Primary Care Provide r Encounter Details Date Type Department Care Team (Latest Contact Info) Description 12/20/2005 Outpatient Historical [facility] Endoscopy [address] [place] [address] Sloan Vickers MD [facility] [address] [place] [address] Other Follow-Up Examination (Primary Dx) Social History Tobacco Use Types Packs/Day Years Used Date Smoking Tobacco: Never Assessed Comments Unknown Sex and Gender Information Value Date Recorded Sex Assigned at Not on file Legal Sex Female 6:13 AM CAB SUPERVISOR Gender Identity Not on file Sexual Orientation Not on file documented as of this encounter Plan of Treatment Not on file documented as of this encounter Visit Diagnoses Diagnosis Other follow-up examination(V67.59)- Primary Other follow-up examination documented in this encounter Care Teams Medart Operator Relationship Specialty Start Date End Date Smith Martínez DO [address] [facility] [address] [place] [address] PCP - General Internal Medicine 08/06/18 documented as of this encounter
--- OUTSIDE RECORDS SUMMARY | 2025-06-17 12:29 | XMS_ITS | Encounter Summary ---
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
--- OUTSIDE RECORDS SUMMARY | 2025-06-17 12:29 | XMS_ITS | Encounter Summary ---
Author Organization [facility] Address [address] [place] [address] Care Team Providers Care Kiln Mechanic Name Role Phone Smith Martínez DO Primary Care Provide r Encounter Details Date Type Department Care Team (Latest Contact Info) Description 01/01/2007 Outpatient Historical [facility] Endoscopy [place] [address] [place] [address] Christiano Ramírez MD NO ADDRESS ON FILE Other Follow-Up Examination (Primary Dx) Social History Tobacco Use Types Packs/Day Years Used Date Smoking Tobacco: Never Assessed Comments Unknown Sex and Gender Information Value Date Recorded Sex Assigned at Not on file 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
--- OUTSIDE RECORDS SUMMARY | 2025-06-17 12:29 | XMS_ITS | Encounter Summary ---
Author Organization [facility] Address [address] [place] [address] Care Team Providers Care Public Health Engineer Name Role Phone Smith Martínez DO Primary Care Provide r Encounter Details Date Type Department Care Team (Latest Contact Info) Description 09/10/2004 Outpatient Historical [facility] Endoscopy [place] [address] [place] [phone] Nilton Samaniego MD [address] [facility] [address] [place] [address] ESOPH VARICES W/O BLEED (CMS/HCC) (Primary Dx) Social History Tobacco Use Types Packs/Day Years Used Date Smoking Tobacco: Never Assessed Comments Unknown Sex and Gender Information Value Date Recorded Sex Assigned at Not on file Legal Sex Female 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
--- OUTSIDE RECORDS SUMMARY | 2025-06-17 12:29 | XMS_ITS | Encounter Summary ---
Author Organization [facility] Address [address] [place] [address] Care Team Providers Care Pricer Name Role Phone Smith Martínez DO Primary Care Provide r Encounter Details Date Type Department Care Team (Latest Contact Info) Description 01/03/2004 Outpatient Historical [facility] [address] [place] [address] [address] [place] [address] Jakub Berry MD NO ADDRESS ON FILE PRIMARY THROMBOCYTOPENIA (Primary Dx); HYPERSPLENISM Social History Tobacco Use Types Packs/Day Years Used Date Smoking Tobacco: Never Assessed Comments Unknown Sex and Gender Information Value Date Recorded Sex Assigned at Not on file Legal Sex Female 6:13 AM SHORT ORDER FRY COOK Gender Identity Not on file Sexual Orientation Not on file documented as of this encounter Plan of Treatment Not on file documented as of this encounter Visit Diagnoses Diagnosis Primary thrombocytopenia- Primary Hypersplenism documented in this encounter Care Teams Pricer Relationship Specialty Start Date End Date Smith Martínez DO [address] [place] [address] PCP - General Internal Medicine 08/06/18 documented as of this encounter
--- OUTSIDE RECORDS SUMMARY | 2025-06-17 12:29 | XMS_ITS | Encounter Summary ---
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); CIRRHOSIS OF LIVER NOS (CMS/HCC) Social History Tobacco Use Types Packs/Day Years Used Date Smoking Tobacco: Never Assessed Comments Unknown Sex and Gender Information Value Date Recorded Sex Assigned at Not on file 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
--- OUTSIDE RECORDS SUMMARY | 2025-06-17 12:29 | XMS_ITS | Encounter Summary ---
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/HCC); CIRRHOSIS OF LIVER NOS (CMS/HCC) Social History Tobacco Use Types Packs/Day Years Used Date Smoking Tobacco: Never Assessed Comments Unknown Sex and Gender Information Value Date Recorded Sex Assigned at Not on file Legal Sex Female 6:13 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
--- OUTSIDE RECORDS SUMMARY | 2025-06-17 12:29 | XMS_ITS | Encounter Summary ---
Author Organization [facility] Address [address] [place] [address] Care Team Providers Care Learning Technologies Specialist Name Role Phone Smith Martínez DO Primary Care Provide r Encounter Details Date Type Department Care Team (Latest Contact Info) Description 10/17/2006 Outpatient [facility] Dermatology- [place] [address] [place] [address] Aristides Herzog MD NO ADDRESS ON FILE Lichen Planus (Primary Dx) Social History Tobacco Use Types Packs/Day Years Used Date Smoking Tobacco: Never Assessed Comments Unknown Sex and Gender Information Value Date Recorded Sex Assigned at Not on file Legal Sex Female 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
--- OUTSIDE RECORDS SUMMARY | 2025-06-17 12:29 | XMS_ITS | Encounter Summary ---
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) Social History Tobacco Use Types Packs/Day Years Used Date Smoking Tobacco: Never Assessed Comments Unknown Sex and Gender Information Value Date Recorded Sex Assigned at Not on file Legal Sex Female 6:13 AM 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
--- OUTSIDE RECORDS SUMMARY | 2025-06-17 12:29 | XMS_ITS | Encounter Summary ---
Author Organization [facility] Address [address] [place] [address] Care Team Providers Care Crepe Machine Operator Name Role Phone Smith Martínez DO Primary Care Provide r Encounter Details Date Type Department Care Team (Latest Contact Info) Description 09/20/2004 Outpatient Historical [facility] Sherrie Allen FNP NO ADDRESS ON FILE HEPATITIS C W/O HEPATIC COMA NOS (Primary Dx) Social History Tobacco Use Types Packs/Day Years Used Date Smoking Tobacco: Never Assessed Comments Unknown Sex and Gender Information Value Date Recorded Sex Assigned at Not on file Legal Sex Female 6:13 AM BREAKFAST HOST Gender Identity Not on file Sexual Orientation Not on file documented as of this encounter Plan of Treatment Not on file documented as of this encounter Visit Diagnoses Diagnosis Unspecified viral hepatitis C without hepatic coma- Primary documented in this encounter Care Teams Crepe Machine Operator Relationship Specialty Start Date End Date Smith Martínez DO [address] [facility] [place] [address] PCP - General Internal Medicine 08/06/18 documented as of this encounter
--- OUTSIDE RECORDS SUMMARY | 2025-06-17 12:29 | XMS_ITS | Encounter Summary ---
Author Organization [facility] Address [address] [place] [address] Care Team Providers Care Rapid Extractor Operator Name Role Phone Smith Martínez DO [...] Legal Sex Female 6:13 AM HUMAN RESOURCES SPECIALIST Gender Identity Not on file Sexual Orientation Not on file documented as of this encounter Plan of Treatment Not on file documented as of this encounter Visit Diagnoses Diagnosis Chronic hepatitis C without mention of hepatic coma (CMS/HCC)- Primary Chronic hepatitis C without mention of hepatic coma documented in this encounter Care Teams Rapid Extractor Operator Relationship Specialty Start Date End Date Smith Martínez DO [address] [place] [address] PCP - General Internal Medicine 08/06/18 documented as of this encounter
--- OUTSIDE RECORDS SUMMARY | 2025-06-17 12:29 | XMS_ITS | Encounter Summary ---
Author Organization [facility] Address [address] [place] [address] Care Team Providers Care Cooperage Shop Supervisor Name Role Phone MartínezSmith nowakhaniel Primary Care [...] SCREENING DIGITAL BREAST TOMOSYNTHESIS BI Ligia Parra, WASTE SALVAGER [address] [address] Phone: tel: fax: [facility] [address] [address] Phone: tel: fax: Referral ID Status Reason Start Date Expiration Date Visits Re quested Visits Authorized [id number] Closed 02/15/2019 03/17/2020 1 1 Encounter Details Date Type Department Care Team (Late st Contact Info) Description 02/15/2019 Ancillary Orders [facility] Pre-Registration [place] CALL TO MAKE APPOINTMENT ONLY [address] [place] [address] Ligia Parra, WASTE SALVAGER [address] [phone] Encounter for screening mammogram for malignant neoplasm of breast Social History Tobacco Use Types Packs/Day Years Used Date Smoking Tobacco: Never Smokeless Tobacco: Never Alcohol Use Standard Drinks/Week Comments No 0 (1 standard drink = 0.6 oz pur e alcohol) Comments No Sex and Gender Information Value Date Recorded Sex Assigned at Not on file Legal Sex Female 6:13 AM DIRECTOR UNDERWRITER SALES Gender Identity Not on file Sexual Orientation [...] mammogram documented in this encounter Care Teams Cooperage Shop Supervisor Relationship Specialty Start Date End Date Smith Martníez DO [address] [place] [address] PCP - General Internal Medicine 08/06/18 documented as of this encounter
--- OUTSIDE RECORDS SUMMARY | 2025-06-17 12:29 | XMS_ITS | Encounter Summary ---
Author Organization [facility] Address [address] [facility] Attn: [place] [address] Care Team Providers Care Assignment Clerk Name Role Phone Smith Martínez DO Primary [...] file Legal Sex Female 6:13 AM DIRECTOR OF SCIENCE Gender Identity Not on file Sexual Orientation [...] on filedocumented in this encounter Care Teams Assignment Clerk Relationship Specialty Start Date End Date Smith Martínez DO [address] [phone] PCP - General Internal Medicine 08/06/18 documented as of this encounter
--- OUTSIDE RECORDS SUMMARY | 2025-06-17 12:29 | XMS_ITS | Encounter Summary ---
Author Organization [facility] Address [address] [place] [address] Care Team Providers Care Technical Account Representative Name Role Phone Smith Martínez DO Primary Care Provide r Encounter Details Date Type Department Care Team (Latest Contact Info) Description 10/01/2006 [facility]patient [facility] [address] [place] [address] Aristides Herzog MD NO ADDRESS ON FILE Impetigo Herpetiformis (Primary Dx); Benign Amandeep Skin Trunk Social History Tobacco Use Types Packs/Day Years Used Date Smoking Tobacco: Never Assessed Comments Unknown Sex and Gender Information Value Date Recorded Sex Assigned at Not on file Legal Sex Female 6:13 AM 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
--- OUTSIDE RECORDS SUMMARY | 2025-06-17 12:29 | XMS_ITS | Encounter Summary ---
Author Organization [facility] Address [address] [place] [address] Care Team Providers Care Consumer Insight Analyst Name Role Phone Smith Martínez DO Primary Care Provide r Encounter Details Date Type Department Care Team (Late st Contact Info) Description 08/29/2008 Outpatient [facility] [address] [place] [address] [facility] Social History Tobacco Use Types Packs/Day Years Used Date Smoking Tobacco: Never Alcohol Use Standard Drinks/Week Comments No 0 (1 standard drink = 0.6 oz pur e alcohol) Comments No Sex and Gender Information Value Date Recorded Sex Assigned at Not on file Legal Sex Female 6:13 AM NUTRITIONIST PUBLIC HEALTH Gender Identity Not on file Sexual Orientation Not on file documented as of this encounter Plan of Treatment Not on file documented as of this encounter Visit Diagnoses Not on filedocumented in this encounter Care Teams Consumer Insight Analyst Relationship Specialty Start Date End Date Smith Martínez DO [address] [place] [address] PCP - General Internal Medicine 08/06/18 documented as of this encounter
--- OUTSIDE RECORDS SUMMARY | 2025-06-17 12:29 | XMS_ITS | Encounter Summary ---
Author Organization [facility] Address [address] [place] [address] Care Team Providers Care Data Entry Supervisor Name Role Phone Smith Martínez DO [...] on file Legal Sex Female 6:13 AM CLINICAL AUDIOLOGIST Gender Identity Not on file Sexual Orientation Not on file documented as of this encounter Plan of Treatment Not on file documented as of this encounter Visit Diagnoses Diagnosis Chronic hepatitis C without mention of hepatic coma (CMS/HCC)- Primary Chronic hepatitis C without mention of hepatic coma documented in this encounter Care Teams Data Entry Supervisor Relationship Specialty Start Date End Date Smith Martínez DO [address] [place] [address] PCP - General Internal Medicine 08/06/18 documented as of this encounter
--- OUTSIDE RECORDS SUMMARY | 2025-06-17 12:29 | XMS_ITS | Encounter Summary ---
Author Organization [facility] Address [address] [place] [address] Care Team Providers Care Strategic Development Manager Name Role Phone Smith Martínez DO [...] on file Legal Sex Female 6:13 AM PULPER Gender Identity Not on file Sexual Orientation Not on file documented as of this encounter Plan of Treatment Not on file documented as of this encounter Visit Diagnoses Diagnosis Chronic hepatitis C without mention of hepatic coma (CMS/HCC)- Primary Chronic hepatitis C without mention of hepatic coma documented in this encounter Care Teams Strategic Development Manager Relationship Specialty Start Date End Date Smith Martínez DO [address] [place] [address] PCP - General Internal Medicine 08/06/18 documented as of this encounter
--- OUTSIDE RECORDS SUMMARY | 2025-06-17 12:29 | XMS_ITS | Encounter Summary ---
Author Organization [facility] Address [address] [place] [address] Care Team Providers Care [place]umkeag Operator Name Role Phone Smith Martínez DO Primary Care Provide r Encounter Details Date Type Department Care Team (Latest Contact Info) Description 10/30/[address] [facility] Endoscopy [address] 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
--- OUTSIDE RECORDS SUMMARY | 2025-06-17 12:29 | XMS_ITS | Encounter Summary ---
Author Organization [facility] Address [address] [place] [address] Care Team Providers Care Boat Motor Mechanic Name Role Phone Smith Martínez DO Primary Care Provide r Encounter Details Date Type Department Care Team (Latest Contact Info) Description 06/17/2005 Outpatient 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
--- OUTSIDE RECORDS SUMMARY | 2025-06-17 12:29 | XMS_ITS | Encounter Summary ---
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) Social History Tobacco Use Types Packs/Day Years Used Date Smoking Tobacco: Never Assessed Comments Unknown Sex and Gender Information Value Date Recorded Sex Assigned at Not on file Legal Sex Female 6:13 AM UNARMED SECURITY OFFICER Gender Identity Not on file Sexual Orientation Not on file documented as of this encounter Plan of Treatment Not on file documented as of this encounter Visit Diagnoses Diagnosis Cirrhosis of liver without mention of alcohol (CMS/HCC)- Primary Cirrhosis of liver without mention of alcohol documented in this encounter Care Teams Director Global Intelligence Relationship Specialty Start Date End Date Smith Martínez DO [address] [place] [address] PCP - General Internal Medicine 08/06/18 documented as of this encounter
--- OUTSIDE RECORDS SUMMARY | 2025-06-17 12:29 | XMS_ITS | Encounter Summary ---
Author Organization [facility] Address [address] [place] [address] Care Team Providers Care Decorating Supervisor Name Role Phone Smith Martínez DO [...] on file Legal Sex Female 6:13 AM WIRE REPAIRER Gender Identity Not on file Sexual Orientation Not on file documented as of this encounter Plan of Treatment Not on file documented as of this encounter Visit Diagnoses Diagnosis Chronic hepatitis C without mention of hepatic coma (CMS/HCC)- Primary Chronic hepatitis C without mention of hepatic coma documented in this encounter Care Teams Decorating Supervisor Relationship Specialty Start Date End Date Smith Martínez DO [address] [place] [address] PCP - General Internal Medicine 08/06/18 documented as of this encounter
--- OUTSIDE RECORDS SUMMARY | 2025-06-17 12:29 | XMS_ITS | Encounter Summary ---
Author Organization [facility] Address [address] [place] [address] Care Team Providers Care Postal Mail Carrier Name Role Phone Smith Martínez Primary Care Provide r Reason for Referral * Outpatient Services (Routine) - Closed Specialty Diagnoses / Procedures Referred By Alfredo smith Referred To Contact Diagnoses Encounter for screening for malignant neoplasm of breast Procedures MAMMO SCRN BILAT 3D [place] W OR WO CAD MAMMO SCREEN BILAT W OR WO CAD Ligia Parra NP [address] [address] Phone: tel: fax: Referral ID Status Reason Start Date Expiration Date Visits Re quested Visits Authorized [id number] Closed 11/28/2017 12/29/2018 1 1 Encounter Details Date Type Department Care Team (Late st Contact Info) Description 11/28/2017 Ancillary Orders [facility] Pre-Registration [place] CALL TO MAKE APPOINTMENT ONLY [address] [place] [address] Ligia Parra ICT TEACHER [address] [address] Encounter for screening for malignant neoplasm of breast Social History Tobacco Use Types Packs/Day Years Used Date Smoking Tobacco: Never Smokeless Tobacco: Never Alcohol Use Standard Drinks/Week Comments No 0 (1 standard drink = 0.6 oz pur e alcohol) Comments No Sex and Gender Information Value Date Recorded Sex Assigned at Not on file Legal Sex Female 6:13 AM SCALER PACKER Gender Identity Not on file Sexual Orientation [...] findings since the prior mammogram(s). Ligia Parra ICT TEACHER MAMMO ORDERABLES Final Result documented in this encounter Visit Diagnoses Diagnosis Encounter for screening for malignant neoplasm of breast Encounter for screening for malignant neoplasm of breast documented in this encounter Care Teams Postal Mail Carrier Relationship Specialty Start Date End Date Smith Martínez DO [address] [address] PCP - General Internal Medicine 08/06/18 documented as of this encounter
--- OUTSIDE RECORDS SUMMARY | 2025-06-17 12:29 | XMS_ITS | Encounter Summary ---
Author Organization [facility] Address [address] [place] [address] Care Team Providers Care Meat Sales And Storage Manager Name Role Phone Smith Martínez DO Primary Care Provide r Encounter Details Date Type Department Care Team (Latest Contact Info) Description 09/10/2004 Outpatient [facility] G[address]enter[address] [place] [address] Nilton Samaniego MD [address] [facility] [address] [place] [address] ESOPH VARICES W/O BLEED (CMS/HCC) (Primary Dx); CIRRHOSIS OF LIVER NOS (CMS/HCC) Social History Tobacco Use Types Packs/Day Years Used Date Smoking Tobacco: Never Assessed Comments Unknown Sex and Gender Information Value Date Recorded Sex Assigned at Not on file Legal Sex Female 6:13 AM VALVE REPAIRER Gender Identity Not on file Sexual Orientation Not on file documented as of this encounter Plan of Treatment Not on file documented as of this encounter Visit Diagnoses Diagnosis Esophageal varices without mention of bleeding- Primary Cirrhosis of liver without mention of alcohol (CMS/HCC) Cirrhosis of liver without mention of alcohol documented in this encounter Care Teams Meat Sales And Storage Manager Relationship Specialty Start Date End Date Smith Martínez DO [address] [place] [address] PCP - General Internal Medicine 08/06/18 documented as of this encounter
--- OUTSIDE RECORDS SUMMARY | 2025-06-17 12:29 | XMS_ITS | Encounter Summary ---
Author Organization [facility] Address [address] [facility] Attn: Epic [place] [address] Care Team Providers Care Coding Advisor Name Role Phone Smith Martínez DO Primary Care Provide r Encounter Details Date Type Department Care Team (Late st Contact Info) Description 07/15/2005 Outpatient Historical Sloan Vickers MD [address] [place] [address] Dr [address] [place] [phone] Social History Tobacco Use Types Packs/Day Years Used Date Smoking Tobacco: Never Assessed Comments Unknown Sex and Gender Information Value Date Recorded Sex Assigned at Not on file Legal Sex Female 6:13 AM OIL SALES AND SERVICE REP Gender Identity Not on file Sexual Orientation Not on file documented as of this encounter Plan of Treatment Not on file documented as of this encounter Procedures Procedure Name Priority Date/Time Associated Diagnosis Comments ALPHA FETOPROTEIN TUMOR MARKER Routine 07/15/2005 10:30 AM OIL SALES AND SERVICE REP documented in this encounter Results * ALPHA FETOPROTEIN TUMOR MARKER (07/15/2005 10:30 AM OIL SALES AND SERVICE REP) ALPHA FETOPROTEIN MATERNAL 4.6 <=8.5 ng/mL INTERFACE SYSTEM 07/15/2005 10:3 0 AM OIL SALES AND SERVICE REP us Sloan Vickers MD CHEMISTRY ORDERABLES Final Result INTERFACE SYSTEM Refer to clinic/hospital department documented in this encounter Visit Diagnoses Not on filedocumented in this encounter Care Teams Coding Advisor Relationship Specialty Start Date End Date Smith Martínez DO [address] [address] PCP - General Internal Medicine 08/06/18 documented as of this encounter
--- OUTSIDE RECORDS SUMMARY | 2025-06-17 12:29 | XMS_ITS | Encounter Summary ---
Author Organization [facility] Address [address] [place] [address] Care Team Providers Care Bird Keeper Name Role Phone Smith Martínez DO Primary Care Provide r Encounter Details Date Type Department Care Team (Latest Contact Info) Description 04/13/2004 Outpatient Historical [facility] Nilton Samaniego MD [address] [facility] [address] [place] [address] HEPATITIS C ACUTE W/O HEPATIC COMA (Primary Dx) Social History Tobacco Use Types Packs/Day Years Used Date Smoking Tobacco: Never Assessed Comments Unknown Sex and Gender Information Value Date Recorded Sex Assigned at Not on file Legal Sex Female 6:13 AM DRILL DOCTOR Gender Identity Not on file Sexual Orientation Not on file documented as of this encounter Plan of Treatment Not on file documented as of this encounter Visit Diagnoses Diagnosis Acute hepatitis C without mention of hepatic coma(070.51)- Primary Acute hepatitis C without mention of hepatic coma documented in this encounter Care Teams Bird Keeper Relationship Specialty Start Date End Date Smith Martínez DO [address] [place] [address] PCP - General Internal Medicine 08/06/18 documented as of this encounter
--- OUTSIDE RECORDS SUMMARY | 2025-06-17 12:29 | XMS_ITS | Encounter Summary ---
Author Organization [facility] Address [address] [place] [address] Care Team Providers Care Desk Director Name Role Phone Smith Martínez DO Primary Care Provide r Encounter Details Date Type Department Care Team (Latest Contact Info) Description 10/01/2006 Outpatient Historical [facility] Central Processing [address] [place] [address] [place] [address] Aristides Herzog MD NO ADDRESS ON FILE Lichen Planus (Primary Dx) Social History Tobacco Use Types Packs/Day Years Used Date Smoking Tobacco: Never Assessed Comments Unknown Sex and Gender Information Value Date Recorded Sex Assigned at Not on file Legal Sex Female 6:13 AM OUTFITTER CABIN Gender Identity Not on file Sexual Orientation Not on file documented as of this encounter Plan of Treatment Not on file documented as of this encounter Visit Diagnoses Diagnosis Lichen planus- Primary documented in this encounter Care Teams Desk Director Relationship Specialty Start Date End Date Smith Martínez DO [address] [place] [address] PCP - General Internal Medicine 08/06/18 documented as of this encounter
--- OUTSIDE RECORDS SUMMARY | 2025-06-17 12:29 | XMS_ITS | Encounter Summary ---
Author Organization [facility] Address [address] [place] [address] Care Team Providers Care Legal Document Assistant Name Role Phone Smith Martínez DO Primary Care Provide r Encounter Details Date Type Department Care Team (Latest Contact Info) Description 12/23/2003 Outpatient Historical [facility] Nursing Services [address] [place] [address] Jakub Berry MD NO ADDRESS ON FILE APLASTIC ANEMIAS NEC (Primary Dx) Social History Tobacco Use Types Packs/Day Years Used Date Smoking Tobacco: Never Assessed Comments Unknown Sex and Gender Information Value Date Recorded Sex Assigned at Not on file Legal Sex Female 6:13 AM SOLAR ENERGY SYSTEM INSTALLER Gender Identity Not on file Sexual Orientation Not on file documented as of this encounter Plan of Treatment Not on file documented as of this encounter Visit Diagnoses Diagnosis Other specified aplastic anemias- Primary documented in this encounter Care Teams Legal Document Assistant Relationship Specialty Start Date End Date Smith Martínez DO [address] [place] [address] PCP - General Internal Medicine 08/06/18 documented as of this encounter
--- OUTSIDE RECORDS SUMMARY | 2025-06-17 12:29 | XMS_ITS | Encounter Summary ---
Author Organization [facility] Address [address] [place] [address] Care Team Providers Care Radio Maintainer Name Role Phone Smith Martínez DO Primary Care Provide r Encounter Details Date Type Department Care Team (Latest Contact Info) Description 01/01/2007 Outpatient [facility] Gastroenterology[address] [place] [address] Christiano Ramírez MD NO ADDRESS ON FILE Acute Stomach Ulcer (Primary Dx) Social History Tobacco Use Types Packs/Day Years Used Date Smoking Tobacco: Never Assessed Comments Unknown Sex and Gender Information Value Date Recorded Sex Assigned at Not on file 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
--- OUTSIDE RECORDS SUMMARY | 2025-06-17 12:30 | XMS_ITS | Encounter Summary ---
Author Organization [facility] Address [address] [place] [address] Care Team Providers Care Cant Gang Sawyer Name Role Phone Smith Martínez DO Primary Care Provide r Encounter Details Date Type Department Care Team (Late st Contact Info) Description 07/01/2006 Outpatient Historical [facility] Gen Spec Surg [address] [address] Louie Hyman MD [address] [place] [address] Unilat Ing Hernia (Primary Dx) Social History Tobacco Use Types Packs/Day Years Used Date Smoking Tobacco: Never Assessed Comments Unknown Sex and Gender Information Value Date Recorded Sex Assigned at Not on file 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 Sex 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
--- OUTSIDE RECORDS SUMMARY | 2025-06-17 12:30 | XMS_ITS | Encounter Summary ---
Author Organization [facility] Address [address] [place] [address] Care Team Providers Care Buncher Hand Name Role Phone Smith Martínez DO Primary Care Provide r Encounter Details Date Type Department Care Team (Latest Contact Info) Description 01/09/2005 Outpatient [facility] [address] [place] [address] Bill Manjarrez MD [address] [address] HEPATITIS NOS (Primary Dx); OSTEOPOROSIS NOS Social History Tobacco Use Types Packs/Day Years Used Date Smoking Tobacco: Never Assessed Comments Unknown Sex and Gender Information Value Date Recorded Sex Assigned at Not on file 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
--- OUTSIDE RECORDS SUMMARY | 2025-06-17 12:30 | XMS_ITS | Encounter Summary ---
Author Organization [facility] Address [address] [place] [address] Care Team Providers Care Scrap Iron Loader Name Role Phone MartínezSmith nowakhaniel Primary Care Provide r Reason for Referral * Outpatient Services (Routine) - Closed Specialty Diagnoses / Procedures Referred By Alfredo smith Referred To Contact Diagnoses Other screening mammogram Procedures MAMMO DIGITAL SCREEN BILAT Ligia Parra NP [address] [address] Phone: tel: fax: Referral ID Status Reason Start Date Expiration Date Visits Re quested Visits Authorized [id number] Closed 05/10/2010 11/06/2010 1 1 Encounter Details Date Type Department Care Team (Late st Contact Info) Description 05/10/2010 Ancillary Orders [facility] [address] [address] Ligia Parra DEPARTMENT OF NATURAL RESOURCES OFFICER [address] [address] Other Screening Mammogram Social History Tobacco Use Types Packs/Day Years Used Date Smoking Tobacco: Never Alcohol Use Standard Drinks/Week Comments No 0 (1 standard drink = 0.6 oz pur e alcohol) Comments No Sex and Gender Information Value Date Recorded Sex Assigned at Not on file Legal Sex Female 6:13 AM DIRECTOR OF QUALITY Gender Identity Not on file Sexual Orientation [...] mammogram documented in this encounter Care Teams Scrap Iron Loader Relationship Specialty Start Date End Date Smith Martínez DO [address] [phone] PCP - General Internal Medicine 08/06/18 documented as of this encounter
--- OUTSIDE RECORDS SUMMARY | 2025-06-17 12:30 | XMS_ITS | Encounter Summary ---
Author Organization [facility] Address [address] [place] [address] Care Team Providers Care Senior Engineering Associate Name Role Phone Smith Martínez DO Primary Care Provide r Encounter Details Date Type Department Care Team (Latest Contact Info) Description 12/07/2003 Outpatient [facility] [address] [place] [address] Kade Rios MD NO ADDRESS ON FILE SCREENING MAMM-MAILG NEOPL-OTHER (Primary Dx) Social History Tobacco Use Types Packs/Day Years Used Date Smoking Tobacco: Never Assessed Comments Unknown Sex and Gender Information Value Date Recorded Sex Assigned at Not on file 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
--- OUTSIDE RECORDS SUMMARY | 2025-06-17 12:30 | XMS_ITS | Encounter Summary ---
Author Organization [facility] Address [address] [place] [address] Care Team Providers Care Promotional Advertising Assistant Name Role Phone Smith Martínez DO Primary Care Provide r Encounter Details Date Type Department Care Team ([facility] [place] Contact Info) Description 12/07/2003 Outpatient Historical [facility] Ligia Parra, SHEET WRITER [address] [address] Social History Tobacco Use Types Packs/Day Years Used Date Smoking Tobacco: Never Assessed Comments Unknown Sex and Gender Information Value Date Recorded Sex Assigned at Not on file Legal Sex Female 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
--- OUTSIDE RECORDS SUMMARY | 2025-06-17 12:30 | XMS_ITS | Encounter Summary ---
Author Organization [facility] Address [address] [place] [address] Care Team Providers Care Radio Control Crane Operator Name Role Phone Smith Martínez DO Primary Care Provide r Encounter Details Date Type Department Care Team (Latest Contact Info) Description 12/23/[address] [facility] Imaging Services [address] [place] [address] Jakub eBrry MD NO ADDRESS ON FILE SPLENOMEGALY (Primary Dx) Social History Tobacco Use Types Packs/Day Years Used Date Smoking Tobacco: Never Assessed Comments Unknown Sex and Gender Information Value Date Recorded Sex Assigned at Not on file Legal Sex Female 6:13 AM DAMAGE ASSESSOR Gender Identity Not on file Sexual Orientation Not on file documented as of this encounter Plan of Treatment Not on file documented as of this encounter Visit Diagnoses Diagnosis Splenomegaly- Primary documented in this encounter Care Teams Radio Control Crane Operator Relationship Specialty Start Date End Date Smith Martínez DO [address] [place] [address] PCP - General Internal Medicine 08/06/18 documented as of this encounter
--- OUTSIDE RECORDS SUMMARY | 2025-06-17 12:30 | XMS_ITS | Encounter Summary ---
Author Organization [facility] Address [address] [place] [address] Care Team Providers Care Drip Molder Name Role Phone Smith Martínez DO Primary [...] on file Legal Sex Female 6:13 AM AUTOMOTIVE SERVICE CONSULTANT Gender Identity Not on file Sexual Orientation Not on file documented as of this encounter Plan of Treatment Not on file documented as of this encounter Visit Diagnoses Diagnosis Chronic hepatitis C without mention of hepatic coma (CMS/HCC)- Primary Chronic hepatitis C without mention of hepatic coma documented in this encounter Care Teams Drip Molder Relationship Specialty Start Date End Date Smith Martínez DO [address] [place] [address] PCP - General Internal Medicine 08/06/18 documented as of this encounter
--- OUTSIDE RECORDS SUMMARY | 2025-06-17 12:30 | XMS_ITS | Encounter Summary ---
Author Organization [facility] Address [address] [facility] Attn: [place] [address] Care Team Providers Care Tour Counselor Name Role Phone Smith Martínez DO Primary [...] on file Legal Sex Female 6:13 AM ERP CONSULTANT Gender Identity Not on file Sexual Orientation Not on file documented as of this encounter Plan of Treatment Not on file documented as of this encounter Procedures Procedure Name Priority Date/Time Associated Diagnosis Comments ALPHA FETOPROTEIN TUMOR MARKER Routine 08/12/2006 10:08 AM ERP CONSULTANT documented in this encounter Results * ALPHA FETOPROTEIN TUMOR MARKER (08/12/2006 10:08 AM ERP CONSULTANT) ALPHA FETOPROTEIN MATERNAL 4.3 <=8.5 ng/mL INTERFACE SYSTEM 08/12/2006 10:0 8 AM ERP CONSULTANT us Christiano Ramírez MD CHEMISTRY ORDERABLES Final Resu lt INTERFACE SYSTEM Refer to clinic/hospital department documented in this encounter Visit Diagnoses Not on filedocumented in this encounter Care Teams Tour Counselor Relationship Specialty Start Date End Date Smith Martínez DO [address] [phone] PCP - General Internal Medicine 08/06/18 documented as of this encounter
--- OUTSIDE RECORDS SUMMARY | 2025-06-17 12:30 | XMS_ITS | Encounter Summary ---
Author Organization [facility] Address [address] [place] [address] Care Team Providers Care Milker Machine Name Role Phone Smith Martínez Primary Care Provide r Encounter Details Date Type Department Care Team (Late st Contact Info) Description 07/21/2006 Outpatient Historical [facility] Operating Room [address] [place] [address] Louie Hyman MD [address] [facility] [address] [place] [address] Unilat Ing Hernia (Primary Dx) Social History Tobacco Use Types Packs/Day Years Used Date Smoking Tobacco: Never Assessed Comments Unknown Sex and Gender Information Value Date Recorded Sex Assigned at Not on file Legal Sex Female 6:13 AM EARTH BORING MACHINE OPERATOR Gender Identity Not on file Sexual Orientation Not on file documented as of this encounter Plan of Treatment Not on file documented as of this encounter Procedures Procedure Name Priority Date/Time Associated Diagnosis Comments DIFFERENTIAL, MANUAL Routine 07/21/2006 6:35 AM EARTH BORING MACHINE OPERATOR CBC WITH DIFFERENTIAL Routine 07/21/2006 6:35 AM EARTH BORING MACHINE OPERATOR COMPREHENSIVE METABOLIC PANEL Routine 07/21/2006 6:35 AM EARTH BORING MACHINE OPERATOR documented in this encounter Results * (ABNORMAL) COMPREHENSIVE METABOLIC PANEL (07/21/2006 6:35 AM EARTH BORING MACHINE OPERATOR) GLUCOSE 92 70 - 110 mg/dL INTERFACE [...] INTERFACE SYSTEM Comment: As of 05 the [facility] has changed testing methods. The new reference range is 25-100 The old referance range was 38-126 AST 211(H) 8 - 33 U/L INTERFACE SYSTEM Comment: As of 05 the [facility] has changed testing methods. The new reference range is 8-33 The old referance range was Males 17-59 Females 14-36 ALT 196(H) 4 - 36 IU/L INTERFACE SYSTEM Comment: As of 05 the [facility] has changed testing methods. The new reference range is 4-36 The old referance range was Males 21-72 Females 9-52 BILIRUBIN TOTAL 1.3(H) 0.3 - 1.2 mg/dL INTERFACE SYSTEM Comment: As of 05 the [facility] has changed testing methods. The new reference range is 0.3-1.2 The old referance range was 0.2-1.4 07/21/2006 6:35 AM EARTH BORING MACHINE OPERATOR us Louie Hyman MD CHEMISTRY ORDERABLES Fi nal Result INTERFACE SYSTEM Refer to clinic/hospital department * (ABNORMAL) DIFFERENTIAL, MANUAL (07/21/2006 6:35 AM EARTH BORING MACHINE OPERATOR) NEUTROPHILS, SEG 56 36 - 66 % [...] Normal INTER FACE SYSTEM 07/21/2006 6:35 AM EARTH BORING MACHINE OPERATOR Louie Hyman MD HEMATOLOGY ORDERABLES C OM Final Result Performing Organization Address [facility] Phone Number INTERFACE SYSTEM Refer to clinic/hospital department * (ABNORMAL) CBC WITH DIFFERENTIAL (07/21/2006 6:35 AM EARTH BORING MACHINE OPERATOR) WBC 3.0(L) 4.8 - 10.8 K/ul INTERFACE [...] 12.8 Fl INTERFACE SYSTEM 07/21/2006 6:35 AM EARTH BORING MACHINE OPERATOR Louie Hyman MD HEMATOLOGY ORDERABLES F inal Result Performing Organization Address [facility] Phone Number INTERFACE SYSTEM Refer to clinic/hospital department documented in this encounter Visit Diagnoses Diagnosis Inguinal hernia without mention of obstruction or gangrene, unilateral or unspecified, (not specified as recurrent)- Primary documented in this encounter Care Teams Milker Machine Relationship Specialty Start Date End Date Smith Martínez DO [address] [place] [address] [address] PCP - General Internal Medicine 08/06/18 documented as of this encounter
--- OUTSIDE RECORDS SUMMARY | 2025-06-17 12:30 | XMS_ITS | Encounter Summary ---
Author Organization [facility] Address [address] [place] [address] Care Team Providers Care Seconds Grader Name Role Phone Smith Martínez DO Primary Care Provide r Encounter Details Date Type Department Care Team (Latest Contact Info) Description 08/12/[address] [facility] Imaging Services [address] [place] [address] Christiano Ramírez MD NO ADDRESS ON FILE Acute Hepatitis C without Mention of Hepatic Coma (Primary Dx) Social History Tobacco Use Types Packs/Day Years Used Date Smoking Tobacco: Never Assessed Comments Unknown Sex and Gender Information Value Date Recorded Sex Assigned at Not on file Legal Sex Female 6:13 AM RADIOISOTOPE PRODUCTION OPERATOR Gender Identity Not on file Sexual Orientation Not on file documented as of this encounter Plan of Treatment Not on file documented as of this encounter Visit Diagnoses Diagnosis Acute hepatitis C without mention of hepatic coma(070.51)- Primary Acute hepatitis C without mention of hepatic coma documented in this encounter Care Teams Seconds Grader Relationship Specialty Start Date End Date Smith Martínez DO [address] [place] [address] PCP - General Internal Medicine 08/06/18 documented as of this encounter
--- OUTSIDE RECORDS SUMMARY | 2025-06-17 12:30 | XMS_ITS | Encounter Summary ---
Author Organization [facility] Address [address] [place] [address] Care Team Providers Care Digital Marketing Officer Name Role Phone Smith Martínez DO Primary Care Provide r Encounter Details Date Type Department Care Team (Latest Contact Info) Description 08/12/2006 Outpatient [facility] Gastroenterology[address] [place] [address] Christiano Ramírez MD NO ADDRESS ON FILE Chronic Hepatitis C without Mention of Hepatic Coma (CMS/HCC) (Primary Dx) Social History Tobacco Use Types Packs/Day Years Used Date Smoking Tobacco: Never Assessed Comments Unknown Sex and Gender Information Value Date Recorded Sex Assigned at Not on file Legal Sex Female 6:13 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
--- OUTSIDE RECORDS SUMMARY | 2025-06-17 12:30 | XMS_ITS | Encounter Summary ---
Author Organization [facility] Address [address] [place] [address] Care Team Providers Care Dishwasher Name Role Phone Smith Martínez Primary Care Provide r Encounter Details Date Type Department Care Team (Late st Contact Info) Description 08/27/2008 Outpatient Historical [facility] IN BED Ed, Physician NO ADDRESS ON FILE Loki Wesley MD [address] [place] [address] Christiano Ramírez MD NO ADDRESS ON FILE Abdominal Pain, Unspecified Site Social History Tobacco Use Types Packs/Day Years Used Date Smoking Tobacco: Never Alcohol Use Standard Drinks/Week Comments No 0 (1 standard drink = 0.6 oz pur e alcohol) Comments No Sex and Gender Information Value Date Recorded Sex Assigned at Not on file Legal Sex Female 6:13 AM ACCOUNTS RECEIVABLE ACCOUNTANT Gender Identity Not on file Sexual Orientation Not on file documented as of this encounter Plan of Treatment Not on file documented as of this encounter Procedures Procedure Name Priority Date/Time Associated Diagnosis Comments BASIC METABOLIC PANEL Stat 08/29/2008 9:40 AM ACCOUNTS RECEIVABLE ACCOUNTANT C. DIFFICILE DETECTION Routine 9:32 PM ACCOUNTS RECEIVABLE ACCOUNTANT STOOL CULTURE W/SHIGA TOXIN Routine 08/28/2008 9:32 PM ACCOUNTS RECEIVABLE ACCOUNTANT BASIC METABOLIC PANEL Routine 08/28/2008 3:56 AM ACCOUNTS RECEIVABLE ACCOUNTANT BODY FLUID CULTURE WITH GRAM STAIN Stat 08/27/2008 8:40 PM ACCOUNTS RECEIVABLE ACCOUNTANT CELL COUNT WITH DIFFERENTIAL, BODY FLUID Stat 08/27/2008 8:31 PM ACCOUNTS RECEIVABLE ACCOUNTANT URINALYSIS MICROSCOPY ONLY Stat 08/27/2008 6:50 PM ACCOUNTS RECEIVABLE ACCOUNTANT URINALYSIS W/REFLEX MICROSCOPIC Stat 08/27/2008 6:50 PM ACCOUNTS RECEIVABLE ACCOUNTANT CT ABDOMEN PELVIS WO CONTRAST Routine 08/27/2008 6:39 PM ACCOUNTS RECEIVABLE ACCOUNTANT US RIGHT UPR QUADRANT Routine 08/27/2008 4:41 PM ACCOUNTS RECEIVABLE ACCOUNTANT XR CHEST PA AND LATERAL 2 VW Routine 08/27/2008 3:11 PM ACCOUNTS RECEIVABLE ACCOUNTANT CBC WITH DIFFERENTIAL Stat 08/27/2008 2:18 PM ACCOUNTS RECEIVABLE ACCOUNTANT COMPREHENSIVE METABOLIC PANEL Stat 08/27/2008 2:18 PM ACCOUNTS RECEIVABLE ACCOUNTANT PT AND APTT Stat 08/27/2008 2:05 PM ACCOUNTS RECEIVABLE ACCOUNTANT LIPASE Stat 08/27/2008 2:05 PM ACCOUNTS RECEIVABLE ACCOUNTANT AMYLASE Stat 08/27/2008 2:05 PM ACCOUNTS RECEIVABLE ACCOUNTANT documented in this encounter Results * (ABNORMAL) BASIC METABOLIC PANEL (08/29/2008 9:40 AM ACCOUNTS RECEIVABLE ACCOUNTANT) CREATININE 4.2(H) 0.7 - 1.2 mg/dL [facility] CALCIUM 8.6 8.4 - 10.5 mg/dL [facility] GLUCOSE 174(H) 70 - 110 mg/dL [facility] CHLORIDE 101 95 - 110 mEq/L [facility] ANION GAP 12 9 - 20 mEq/L [facility] SODIUM 123(AA) 136 - 145 mEq/L [facility] Comment: Potentially critical/toxic NA called by kristin to carlos, with verbal read back, at 08/29/08 10:20. BUN 89(H) 7 - 17 mg/dL [facility] CO2 15(L) 22 - 32 mmol/l [facility] POTASSIUM 4.6 3.5 - 5.0 mEq/L [facility] OSMOLALITY, CALCULATED 289 275 - 295 mOsm/Kg [facility] Blood specimen (specimen) 08/29/2008 9:40 AM ACCOUNTS RECEIVABLE ACCOUNTANT 08/29/2008 9:48 AM ACCOUNTS RECEIVABLE ACCOUNTANT Christiano Ramírez MD CHEMISTRY ORDERABLES Final Resu lt Performing Organization Address [facility] de Phone Number INTERFACE SYSTEM Refer to clinic/hospital department [facility] CLIA# [id number] [address] [place] [address] * STOOL CULTURE (08/28/2008 9:32 PM ACCOUNTS RECEIVABLE ACCOUNTANT) FINAL REPORT Negative for Salmonella/Sh igella/Vibrio / Campylobacter /E. coli 0157:H7 (Note: If Yersinia culture or Shiga toxin testing for E.coli indicated, these require special orders and additional samples be submitted.) -------- No gram negative sofie present INTERFACE SYSTEM 08/28/2008 9:32 PM ACCOUNTS RECEIVABLE ACCOUNTANT 08/28/2008 10:02 PM ACCOUNTS RECEIVABLE ACCOUNTANT Christiano Ramírez MD MICROBIOLOGY - GENERAL ORDERABL ES Final Result Performing Organization Address [facility]/ZIP Co de Phone Number INTERFACE SYSTEM Refer to clinic/hospital department * CLOSTRIDIUM DIFFICILE TOXIN (08/28/2008 9:32 PM ACCOUNTS RECEIVABLE ACCOUNTANT) C DIFFICILE TOXIN Negative Negative [facility] 08/28/2008 9:32 PM ACCOUNTS RECEIVABLE ACCOUNTANT 08/28/2008 10:02 PM ACCOUNTS RECEIVABLE ACCOUNTANT Christiano Ramírez MD MICROBIOLOGY - GENERAL ORDERABL ES Final Result Performing Organization Address [facility] de Phone Number INTERFACE SYSTEM Refer to clinic/[facility] department [facility] CLIA# [id number] [address] [place] [address] * (ABNORMAL) BASIC METABOLIC PANEL (08/28/2008 3:56 AM ACCOUNTS RECEIVABLE ACCOUNTANT) [facility] POTASSIUM 4.9 3.5 - 5.0 mEq/L [facility] OSMOLALITY, CALCULATED 290 275 - 295 mOsm/Kg [facility] CREATININE 4.0(H) 0.7 - 1.2 mg/dL [facility] CALCIUM 8.0(L) 8.4 - 10.5 mg/dL [facility] GLUCOSE 109 70 - 110 mg/dL [facility] CHLORIDE 101 95 - 110 mEq/L [facility] ANION GAP 14 9 - 20 mEq/L [facility] SODIUM 125(L) 136 - 145 mEq/L [facility] BUN 90(H) 7 - 17 mg/dL [facility] CO2 15(L) 22 - 32 mmol/l [facility] Blood specimen (specimen) 08/28/2008 3:56 AM ACCOUNTS RECEIVABLE ACCOUNTANT 08/28/2008 4:30 AM ACCOUNTS RECEIVABLE ACCOUNTANT Christiano Ramírez MD CHEMISTRY ORDERABLES Final Resu lt Performing Organization Address [facility] de Phone Number INTERFACE SYSTEM Refer to clinic/hospital department [facility] CLIA# [id number] [address] [place] [address] * BODY FLUID CULTURE WITH GRAM STAIN (08/27/2008 8:40 PM ACCOUNTS RECEIVABLE ACCOUNTANT) Pathologist [facility] GRAM STAIN No organisms observed Moderate (6-10/oil hpf) PMN WBC's observed NOTE: Specimen in heparin retrieved for direct gram stain. INTERFACE SYSTEM FINAL REPORT Isolated from broth media: Gram positive cocci Identified as: Beta Streptococcus, group B INTERFACE SYSTEM SUSCEPTIBILITY PERFORMED ON STREPTOCOCCUS GROUP B INTERFACE SYSTEM 08/27/2008 8:40 PM ACCOUNTS RECEIVABLE ACCOUNTANT 08/27/2008 9:55 PM ACCOUNTS RECEIVABLE ACCOUNTANT Narrative INTERFACE SYSTEM - 08/28/2008 9:27 AM ACCOUNTS RECEIVABLE ACCOUNTANT ascites Organism Antibiotic Method Susceptibility Streptococcus group [...] ORDERAB LES Final Result Performing Organization Address [facility] Phone Number INTERFACE SYSTEM Refer to clinic/hospital department * CELL COUNT WITH DIFFERENTIAL, BODY FLUID (08/27/2008 8:31 PM ACCOUNTS RECEIVABLE ACCOUNTANT) LYMPHOCYTE, FLD 9 % [facility] COLOR, FLD Yellow [facility] NEUTROPHILS, FLD 76 % [facility] SOURCE FLUID Paracentesis [facility] MONOCYTE, FLD 14 % [facility] BANDS, FLD 1 % [facility] WBC, FLD 3,387 /mm3 [facility] APPEARANCE, BODY FLUID Slightly Cloudy [facility] RBC, FLD 690 /mm3 [facility] 08/27/2008 8:31 PM ACCOUNTS RECEIVABLE ACCOUNTANT 08/27/2008 9:00 PM ACCOUNTS RECEIVABLE ACCOUNTANT us Loki Wesley MD BODY FLUIDS AND STOOLS Edite d Performing Organization Address [facility] de Phone Number INTERFACE SYSTEM Refer to clinic/hospital department [facility] CLIA# [id number] [address] [place] [address] * (ABNORMAL) URINALYSIS MICROSCOPY ONLY (08/27/2008 6:50 PM ACCOUNTS RECEIVABLE ACCOUNTANT) HYALINE CAST 11-15(A) 0 - 2 [facility] WBC URINE 0-2 0 - 2 [facility] BACTERIA UA Few(A) None Seen [facility] RBC UA 0-2 0 - 2 [facility] Urine specimen (specimen) 08/27/2008 6:50 PM ACCOUNTS RECEIVABLE ACCOUNTANT 08/27/2008 6:50 PM ACCOUNTS RECEIVABLE ACCOUNTANT Narrative INTERFACE SYSTEM - 08/27/2008 7:11 PM ACCOUNTS RECEIVABLE ACCOUNTANT Microscopic ordered by policy Juaquin Osman MD URINE ORDERABLES Final Result Performing Organization Address [facility] de Phone Number INTERFACE SYSTEM Refer to clinic/hospital department [facility] CLIA# [id number] [address] [place] [address] * (ABNORMAL) URINALYSIS (08/27/2008 6:50 PM ACCOUNTS RECEIVABLE ACCOUNTANT) CLARITY UA Clear Clear [facility] SPECIFIC GRAVITY UA 1.020 <=1.005 [facility] GLUCOSE UA NEGATIVE NEGATIVE [facility] PH UA 5.0 5.0 - 9.0 [facility] BILIRUBIN UA NEGATIVE NEGATIVE [facility] LEUKOCYTE ESTERASE UA NEGATIVE NEGATIVE [facility] KETONES UA NEGATIVE NEGATIVE [facility] MICRO EXAM Yes(A) No [facility] COLOR UA Yellow Straw [facility] PROTEIN UA NEGATIVE NEGATIVE [facility] BLOOD UA Trace(A) NEGATIVE [facility] NITRITE UA NEGATIVE NEGATIVE [facility] UROBILINOGEN UA 0.2 0.2 [facility] Urine specimen (specimen) 08/27/2008 6:50 PM ACCOUNTS RECEIVABLE ACCOUNTANT 08/27/2008 6:50 PM ACCOUNTS RECEIVABLE ACCOUNTANT us Juaquin Osman MD URINE ORDERABLES Final Result Performing Organization Address [facility] Co de Phone Number INTERFACE SYSTEM Refer to clinic/hospital department [facility] CLIA# [id number] [address] [place] [address] * CT ABDOMEN PELVIS WO CONTRAST (08/27/2008 6:39 PM ACCOUNTS RECEIVABLE ACCOUNTANT) Anatomical Region Laterality Modality Abdomen Other 08/27/2008 6:39 PM ACCOUNTS RECEIVABLE ACCOUNTANT Narrative 08/28/2008 7:45 AM ACCOUNTS RECEIVABLE ACCOUNTANT Exam: CT Abdomen, Pelvis w/o Date/Time of [...] By: MD Juancho StMD Date Signed: 08/28/08 [facility] Procedure Note Juancho St MD - 08/28/2008 [...] can be identified. - Dictated By: MD uJancho St Electronically Signed By: MD Juancho StMD Date Signed: 08/28/08 SDM Loki Wesley MD CT ORDERABLES Final Result * US RIGHT UPR QUADRANT (08/27/2008 4:41 PM ACCOUNTS RECEIVABLE ACCOUNTANT) Anatomical Region Laterality Modality Abdomen Other 08/27/2008 4:41 PM ACCOUNTS RECEIVABLE ACCOUNTANT Narrative 08/28/2008 7:42 AM ACCOUNTS RECEIVABLE ACCOUNTANT Exam: US-RUQ Date/Time of Exam: Aug 27, [...] Juancho St Electronically Signed By: MD Juancho StDE Date Signed: 08/28/08 SDM us Loki Wesley MD ORDERABLES Final Result * XR CHEST PA AND LATERAL (08/27/2008 3:11 PM ACCOUNTS RECEIVABLE ACCOUNTANT) Anatomical Region Laterality Modality Chest Other 08/27/2008 3:11 PM ACCOUNTS RECEIVABLE ACCOUNTANT Narrative 08/28/2008 10:19 AM ACCOUNTS RECEIVABLE ACCOUNTANT Exam: Chest - PA and Lateral Date/Time [...] By: Michelet Johnson M.D. Date Signed: 08/28/08 [facility] Procedure Note Michelet Johnson MD - 08/28/2008 [...] (ABNORMAL) CBC WITH DIFFERENTIAL (08/27/2008 2:18 PM ACCOUNTS RECEIVABLE ACCOUNTANT) LYMPHOCYTES 5.8(L) 24.0 - 44.0 % [facility] MCHC 35.0 30.0 - 35.0 g/dL [facility] LYMPHOCYTE ABSOLUTE 0.5(L) 1.2 - 4.0 K/ul [facility] MCV 83.0(L) 84.0 - 103.0 Fl [facility] MPV 10.2 8.9 - 12.8 Fl [facility] BASOPHILS ABSOLUTE 0.0 0.0 - 0.2 K/ul [facility] BASOPHILS 0.1 0.0 - 1.0 % [facility] HEMOGLOBIN 10.4(L) 12.0 - 16.0 g/dL [facility] RDW 15.2(H) 11.0 - 14.5 % [facility] MONOCYTE ABSOLUTE 0.7(H) 0.1 - 0.6 K/ul [facility] MONOCYTES 7.7 2.0 - 10.0 % [facility] WBC 9.3 4.8 - 10.8 K/ul [facility] MCH 29.1 27.0 - 34.0 pg [facility] NEUTROPHIL ABSOLUTE 8.0 2.0 - 8.0 K/ul [facility] NEUTROPHILS 86.1(H) 42.2 - 75.2 % [facility] HEMATOCRIT 29.7(L) 36.0 - 46.0 % [facility] EOSINOPHILS 0.3 0.0 - 7.0 % [facility] PLATELETS 80(L) 140 - 440 K/ul [facility] PERIPHERAL BLOOD SMEAR REVIEW Automated Diff [facility] EOSINOPHIL ABSOLUTE 0.0 0.0 - 0.7 K/ul [facility] RBC 3.58(L) 4.20 - 5.40 Mil/ul [facility] Blood specimen (specimen) 08/27/2008 2:18 PM ACCOUNTS RECEIVABLE ACCOUNTANT 08/27/2008 2:27 PM ACCOUNTS RECEIVABLE ACCOUNTANT us Physician Sj Ed HEMATOLOGY ORDERABLES Final Resu lt INTERFACE SYSTEM Refer to clinic/hospital department [facility] CLIA# [id number] [address] [place] [address] * (ABNORMAL) COMPREHENSIVE METABOLIC PANEL (08/27/2008 2:18 PM ACCOUNTS RECEIVABLE ACCOUNTANT) ALKALINE PHOSPHATASE 73 25 - 100 U/L [facility] CREATININE 4.3(H) 0.7 - 1.2 mg/dL [facility] ALBUMIN/GLOBULIN RATIO 1.2 1.0 - 2.3 [facility] TOTAL PROTEIN 6.3 6.3 - 8.2 g/dL [facility] POTASSIUM 5.0 3.5 - 5.0 mEq/L [facility] GLUCOSE 104 70 - 110 mg/dL [facility] OSMOLALITY, CALCULATED 301(H) 275 - 295 mOsm/Kg [facility] BILIRUBIN TOTAL 1.5(H) 0.3 - 1.2 mg/dL [facility] CO2 15(L) 22 - 32 mmol/l [facility] AST 16 8 - 33 U/L [facility] BUN 90(H) 7 - 17 mg/dL [facility] GLOBULIN (CALC) 2.9 2.4 - 3.9 g/dL [facility] ALBUMIN 3.4(L) 3.5 - 5.0 g/dL [facility] CHLORIDE 100 95 - 110 mEq/L [facility] ANION GAP 21(H) 9 - 20 mEq/L [facility] ALT 20 4 - 36 IU/L [facility] SODIUM 131(L) 136 - 145 mEq/L [facility] CALCIUM 9.3 8.4 - 10.5 mg/dL [facility] Blood specimen (specimen) 08/27/2008 2:18 PM ACCOUNTS RECEIVABLE ACCOUNTANT 08/27/2008 2:38 PM ACCOUNTS RECEIVABLE ACCOUNTANT Physician Abhishek Ed CHEMISTRY ORDERABLES Edited Performing Organization Address [facility] Phone Number INTERFACE SYSTEM Refer to clinic/hospital department [facility] CLIA# [id number] [address] [place] [address] * AMYLASE (08/27/2008 2:05 PM ACCOUNTS RECEIVABLE ACCOUNTANT) AMYLASE 38 20 - 104 U/L [facility] Blood specimen (specimen) 08/27/2008 2:05 PM ACCOUNTS RECEIVABLE ACCOUNTANT 08/27/2008 2:50 PM ACCOUNTS RECEIVABLE ACCOUNTANT Loki Wesley MD CHEMISTRY ORDERABLES Final R esult Performing Organization Address [facility] Phone Number INTERFACE SYSTEM Refer to clinic/hospital department [facility] CLIA# [id number] [address] [place] [address] * LIPASE (08/27/2008 2:05 PM ACCOUNTS RECEIVABLE ACCOUNTANT) LIPASE 51 6 - 51 U/L [facility] Blood specimen (specimen) 08/27/2008 2:05 PM ACCOUNTS RECEIVABLE ACCOUNTANT 08/27/2008 2:50 PM ACCOUNTS RECEIVABLE ACCOUNTANT Loki Wesley MD CHEMISTRY ORDERABLES Final R esult Performing Organization Address [facility] Phone Number INTERFACE SYSTEM Refer to clinic/hospital [facility] CLIA# [id number] [address] [place] [address] * (ABNORMAL) PT AND APTT (08/27/2008 2:05 PM ACCOUNTS RECEIVABLE ACCOUNTANT) PTT 36.4 22.5 - 36.5 Secs [facility] Comment: Therapeutic Range: Hi-level PE/DVT heparin protocol 80.1 -95.0 sec Lo-level PE/DVT heparin protocol 67.1 - 80.0 sec Cardiac Heparin Protocol 67.1 - 85.0 sec Neuro Heparin Protocol 67.1 - 80.0 sec As of 11/12/2007 note change in APTT Normal Range. PROTIME 18.3(H) 12.8 - 15.8 Secs [facility] Comment:As of 2007 not e change in normal range. INR 1.4 [facility] Comment: Expected Values for [...] from the pharmacy Lucy Rangel, Pharm D. [phone] Blood specimen (specimen) 08/27/2008 2:05 PM ACCOUNTS RECEIVABLE ACCOUNTANT 08/27/2008 2:51 PM ACCOUNTS RECEIVABLE ACCOUNTANT Loki Wesley MD HEMATOLOGY ORDERABLES Edited INTERFACE SYSTEM Refer to clinic/hospital department [facility] CLIA# [id number] [address] [place] [address] documented in this encounter Visit Diagnoses Diagnosis Abdominal pain, unspecified site documented in this encounter Care Teams Dishwasher Relationship Specialty Start Date End Date Smith Martínez DO [address] [facility] [address]ny [address] [address] PCP - General Internal Medicine 08/06/18 documented as of this encounter
--- OUTSIDE RECORDS SUMMARY | 2025-06-17 12:30 | XMS_ITS | Encounter Summary ---
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) Social History Tobacco Use Types Packs/Day Years Used Date Smoking Tobacco: Never Assessed Comments Unknown Sex and Gender Information Value Date Recorded Sex Assigned at Not on file Legal Sex Female 6:13 AM BUDGET DIRECTOR Gender Identity Not on file Sexual Orientation Not on file documented as of this encounter Plan of Treatment Not on file documented as of this encounter Visit Diagnoses Diagnosis Esophageal varices without mention of bleeding- Primary Cirrhosis of liver without mention of alcohol (CMS/HCC) Cirrhosis of liver without mention of alcohol documented in this encounter Care Teams Weather Forecaster Relationship Specialty Start Date End Date Smith Martínez DO [address] [place] [address] PCP - General Internal Medicine 08/06/18 documented as of this encounter
--- OUTSIDE RECORDS SUMMARY | 2025-06-17 12:30 | XMS_ITS | Encounter Summary ---
Author Organization [facility] Address [address] [place] [address] Care Team Providers Care Cashier Gambling Name Role Phone Smith Martínez DO Primary Care Provide r Encounter Details Date Type Department Care Team (Latest Contact Info) Description 08/28/2004 Outpatient Historical [facility] Op[facility] [address] [place] [address] Salomón Barrios MD NO ADDRESS ON FILE REFRACTION DISORDER NOS (Primary Dx) Social History Tobacco Use Types Packs/Day Years Used Date Smoking Tobacco: Never Assessed Comments Unknown Sex and Gender Information Value Date Recorded Sex Assigned at Not on file Legal Sex Female 6:13 AM DRY END OPERATOR Gender Identity Not on file Sexual Orientation Not on file documented as of this encounter Plan of Treatment Not on file documented as of this encounter Visit Diagnoses Diagnosis Unspecified disorder of refraction and accommodation- Primary documented in this encounter Care Teams Cashier Gambling Relationship Specialty Start Date End Date Smith Martínez DO [address] [place] [address] PCP - General Internal Medicine 08/06/18 documented as of this encounter
--- OUTSIDE RECORDS SUMMARY | 2025-06-17 12:30 | XMS_ITS | Encounter Summary ---
Author Organization [facility] Address [address] [place] [address] Care Team Providers Care Flight Data Technician Name Role Phone MartínezSmith nowakhaniel Primary Care Provide r Reason for Referral * Outpatient Services (Routine) - Closed Specialty Diagnoses / Procedures Referred By Alfredo smith Referred To Contact Diagnoses Visit for screening mammogram Procedures MAMMO SCREEN BILAT W OR WO CAD Ligia Parra NP [address] [address] Phone: tel: fax: Referral ID Status Reason Start Date Expiration Date Visits Re quested Visits Authorized [id number] Closed 11/26/2016 12/27/2017 1 1 Encounter Details Date Type Department Care Team ([facility] st Contact Info) Description 11/26/2016 Ancillary Orders [facility] Pre-Registration [place] CALL TO MAKE APPOINTMENT ONLY [address] [place] [address] Ligia Parra CAR BARN LABORER [address] [address] Visit for screening mammogram Social History Tobacco Use Types Packs/Day Years Used Date Smoking Tobacco: Never Smokeless Tobacco: Never Alcohol Use Standard Drinks/Week Comments No 0 (1 standard drink = 0.6 oz pur e alcohol) Comments No Sex and Gender Information Value Date Recorded Sex Assigned at Not on file Legal Sex Female 6:13 AM MEETING PLANNER Gender Identity Not on file Sexual Orientation [...] mammogram documented in this encounter Care Teams Flight Data Technician Relationship Specialty Start Date End Date Smith Martínez DO [address] [address] PCP - General Internal Medicine 08/06/18 documented as of this encounter
--- OUTSIDE RECORDS SUMMARY | 2025-06-17 12:30 | XMS_ITS | Encounter Summary ---
Author Organization [facility] Address [address] [place] [address] Care Team Providers Care Coat Check Attendant Name Role Phone Smith Martínez DO Primary Care Provide r Encounter Details Date Type Department Care Team ([facility] st Contact Info) Description 12/07/2003 Outpatient [facility] Breast Center [facility] [address] [place] [address] Ligia Parra, LUGGAGE MAKER [address] [address] SCREENING MAMM-MAILG NEOPL-OTHER (Primary Dx) Social History Tobacco Use Types Packs/Day Years Used Date Smoking Tobacco: Never Assessed Comments Unknown Sex and Gender Information Value Date Recorded Sex Assigned at Not on file Legal Sex Female 6:13 AM AUTOCAD ELECTRICAL DESIGNER Gender Identity Not on file Sexual Orientation Not on file documented as of this encounter Plan of Treatment Not on file documented as of this encounter Visit Diagnoses Diagnosis Other screening mammogram- Primary documented in this encounter Care Teams Coat Check Attendant Relationship Specialty Start Date End Date Smith Martínez DO [address] [facility] 1 [place] [address] PCP - General Internal Medicine 08/06/18 documented as of this encounter
--- OUTSIDE RECORDS SUMMARY | 2025-06-17 12:30 | XMS_ITS | Encounter Summary ---
Author Organization [facility] Address [address] [place] [address] Care Team Providers Care Helminthologist Name Role Phone Smith Martínez DO Primary Care Provide r Encounter Details Date Type Department Care Team (Latest Contact Info) Description 12/07/2002 Outpatient Historical [facility] Endoscopy [place] [address] [place] [phone] Nilton Samaniego MD [address] [facility] [address] [place] [address] DIARRHEA NOS (Primary Dx) Social History Tobacco Use Types Packs/Day Years Used Date Smoking Tobacco: Never Assessed Comments Unknown Sex and Gender Information Value Date Recorded Sex Assigned at Not on file Legal Sex Female 6:13 AM INDUSTRIAL PAINTER Gender Identity Not on file Sexual Orientation Not on file documented as of this encounter Plan of Treatment Not on file documented as of this encounter Visit Diagnoses Diagnosis Diarrhea- Primary documented in this encounter Care Teams Helminthologist Relationship Specialty Start Date End Date Smith Martínez DO [address] [place] [address] PCP - General Internal Medicine 08/06/18 documented as of this encounter
--- OUTSIDE RECORDS SUMMARY | 2025-06-17 12:30 | XMS_ITS | Encounter Summary ---
Author Organization [facility] Address [address] [place] [address] Care Team Providers Care Skilled Nursing Facilities Professional Name Role Phone Smith Martínez DO Primary Care Provide r Encounter Details Date Type Department Care Team (Latest Contact Info) Description 03/04/2005 Outpatient [facility] Gastroenterology[address] [place] [address] Sloan Vickers MD [address] [place] [address] [address] [place] [address] VIR HEP NEC W/O COMA W HEP C CHRON (CMS/HCC) (Primary Dx); CIRRHOSIS OF LIVER NOS (CMS/HCC) Social History Tobacco Use Types Packs/Day Years Used Date Smoking Tobacco: Never Assessed Comments Unknown Sex and Gender Information Value Date Recorded Sex Assigned at Not on file Legal Sex Female 6:13 AM PHLEBOTOMY SERVICES TECHNICIAN Gender Identity Not on file Sexual [...] alcohol documented in this encounter Care Teams Skilled Nursing Facilities Professional Relationship Specialty Start Date End Date Smith Martínez DO [address] [place] [address] PCP - General Internal Medicine 08/06/18 documented as of this encounter
--- OUTSIDE RECORDS SUMMARY | 2025-06-17 12:30 | XMS_ITS | Encounter Summary ---
Author Organization [facility] Address [address] [place] [address] Care Team Providers Care Mainframe Developer Name Role Phone Smith Martínez Primary [...] on file Legal Sex Female 6:13 AM CAFE MANAGER Gender Identity Not on file Sexual [...] the insertion of a 7 cm 18-gauge [employer] centesis catheter, through which approximately 6800 mL [...] CDT) PTT 38.0(H) 22.5 - 36.5 Secs [facility] Comment: Therapeutic Range: Hi-level PE/DVT heparin protocol 80.1 -95.0 sec Lo-level PE/DVT heparin protocol 67.1 - 80.0 sec Cardiac Heparin Protocol 67.1 - 85.0 sec Neuro Heparin Protocol 67.1 - 80.0 sec As of 11/12/2007 note change in APTT Normal Range. INR 1.3 [facility] Comment: Expected Values for INR: DVT/PE Goal INR 2.5; range 2.0 - 3.0 Valve Replacement Tissue Goal INR 2.5; range 2.0 - 3.0 Mechanical Goal INR 3.0; range 2.5 - 3.5 POST-[place] Goal INR 2.5; range 2.0 - 3.0 or Goal 3.0; range 2.5 - 3.5 Atrial Fibrillation Goal INR 2.5; range 2.0 - 3.0 Ischemic Stroke Goal INR 2.5; range 2.0 - 3.0 For additional information see Guidelines for Anticoagulation available from the pharmacy James Matos [phone] PROTIME 17.5(H) 12.8 - 15.8 Secs [facility] Comment:As of 2007 not e change in normal range. Blood specimen (specimen) 04/28/2008 12:13 PM CDT 04/28/2008 12:17 PM CDT Christiano Ramírez MD HEMATOLOGY ORDERABLES Edited Performing Organization Address City/[facility] Co de Phone Number INTERFACE SYSTEM Refer to clinic/hospital department [facility] CLIA# [id number] [address] [place] [address] * (ABNORMAL) PLATELET COUNT (04/28/2008 12:13 PM CDT) PLATELETS 51(L) 140 - 440 K/ul [facility] Blood specimen (specimen) 04/28/2008 12:13 PM CDT 04/28/2008 12:17 PM CDT Christiano Ramírez MD HEMATOLOGY ORDERABLES Final Res ult Performing Organization Address [facility] de Phone Number INTERFACE SYSTEM Refer to clinic/hospital department [facility] CLIA# [id number] [facility] [place] [address] documented in this encounter Visit Diagnoses Diagnosis Other ascites 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
--- OUTSIDE RECORDS SUMMARY | 2025-06-17 12:30 | XMS_ITS | Encounter Summary ---
Author Organization [facility] Address [address] [place] [address] Care Team Providers Care Sap Basis Architect Name Role Phone Smith Martínez DO Primary Care Provide r Encounter Details Date Type Department Care Team (Latest Contact Info) Description 03/18/2005 Outpatient [facility] Gastroenterology[address] [place] [address] Sloan Vickers MD [address] [place] [address] [address] [place] [address] VIR HEP NEC W/O COMA W HEP C CHRON (CMS/HCC) (Primary Dx); CIRRHOSIS OF LIVER NOS (CMS/HCC) Social History Tobacco Use Types Packs/Day Years Used Date Smoking Tobacco: Never Assessed Comments Unknown Sex and Gender Information Value Date Recorded Sex Assigned at Not on file Legal Sex Female 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
--- OUTSIDE RECORDS SUMMARY | 2025-06-17 12:30 | XMS_ITS | Encounter Summary ---
Author Organization [facility] Address [address] [place] [address] Care Team Providers Care Juice Scaleman Name Role Phone Smith Martínez DO Primary Care Provide r Encounter Details Date Type Department Care Team (Latest Contact Info) Description 12/07/2002 Outpatient [facility] Gastroenterology[address] [place] [phone] Nilton Samaniego MD 1029 [facility] [address] [place] [address] DIARRHEA NOS (Primary Dx) Social History Tobacco Use Types Packs/Day Years Used Date Smoking Tobacco: Never Assessed Comments Unknown Sex and Gender Information Value Date Recorded Sex Assigned at Not on file Legal Sex Female 6:13 AM 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
--- OUTSIDE RECORDS SUMMARY | 2025-06-17 12:30 | XMS_ITS | Encounter Summary ---
Author Organization [facility] Address [address] [place] [address] Care Team Providers Care Contract Lead Name Role Phone Smith Martínez DO Primary Care Provide r Encounter Details Date Type Department Care Team (Late st Contact Info) Description 12/20/2003 Outpatient Historical [facility] Cancer and Hematology [address] [place] [address] [address] [place] [address] Jakub Berry MD NO ADDRESS ON FILE Social History Tobacco Use Types Packs/Day Years Used Date Smoking Tobacco: Never Assessed Comments Unknown Sex and Gender Information Value Date Recorded Sex Assigned at Not on file 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
--- OUTSIDE RECORDS SUMMARY | 2025-06-17 12:30 | XMS_ITS | Encounter Summary ---
Author Organization [facility] Address [address] [place] [address] Care Team Providers Care Central Sterilization Technician Name Role Phone Smith Martínez DO Primary Care Provide r Encounter Details Date Type Department Care Team (Latest Contact Info) Description 09/16/2006 [facility] [facility] [address] [place] [address] Aristides Herzog MD NO ADDRESS ON FILE Actinic Keratosis (Primary Dx); Other Atopic Dermatitis and Related Conditions Social History Tobacco Use Types Packs/Day Years Used Date Smoking Tobacco: Never Assessed Comments Unknown Sex and Gender Information Value Date Recorded Sex Assigned at Not on file Legal Sex Female 6:13 AM 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
--- OUTSIDE RECORDS SUMMARY | 2025-06-17 12:30 | XMS_ITS | Encounter Summary ---
Author Organization [facility] Address [address] [place] [address] Care Team Providers Care Clothes Presser Name Role Phone Smith Martínez DO Primary Care Provide r Encounter Details Date Type Department Care Team (Late st Contact Info) Description 09/08/[address] [facility] Imaging Services [address] 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
--- OUTSIDE RECORDS SUMMARY | 2025-06-17 12:30 | XMS_ITS | Encounter Summary ---
Author Organization [facility] Address [address] [place] [address] Care Team Providers Care Wheelchair Van Driver Name Role Phone Smith Martínez DO Primary [...] on file Legal Sex Female 6:13 AM SR. MEDIA MANAGER Gender Identity Not on file Sexual Orientation Not on file documented as of this encounter Plan of Treatment Not on file documented as of this encounter Procedures Procedure Name Priority Date/Time Associated Diagnosis Comments US GUIDED ASPIRATION Routine 08/10/2008 12:23 PM SR. MEDIA MANAGER PT AND APTT Stat 08/10/2008 10:43 AM SR. MEDIA MANAGER PLATELET COUNT Stat 08/10/2008 10:43 AM SR. MEDIA MANAGER documented in this encounter Results * US GUIDED ASPIRATION (08/10/2008 12:23 PM SR. MEDIA MANAGER) Anatomical Region Laterality Modality Other 08/10/2008 12:2 3 PM SR. MEDIA MANAGER Narrative 08/31/2008 4:19 PM SR. MEDIA MANAGER HISTORY: This is a patient referred [...] insertion of a 7 cm 18 gauge Inventergy centesis catheter through which approximately 5,000 mL [...] (ABNORMAL) PT AND APTT (08/10/2008 10:43 AM SR. MEDIA MANAGER) PTT 36.6(H) 22.5 - 36.5 Secs [facility] Comment: Therapeutic Range: Hi-level PE/DVT heparin protocol 80.1 -95.0 sec Lo-level PE/DVT heparin protocol 67.1 - 80.0 sec Cardiac Heparin Protocol 67.1 - 85.0 sec Neuro Heparin Protocol 67.1 - 80.0 sec As of 11/12/2007 note change in APTT Normal Range. PROTIME 19.2(H) 12.8 - 15.8 Secs [facility] Comment:As of 2007 not e change in normal range. INR 1.5 [facility] Comment: Expected Values for INR: DVT/PE Goal INR 2.5; range 2.0 - 3.0 Valve Replacement Tissue Goal INR 2.5; range 2.0 - 3.0 Mechanical Goal INR 3.0; range 2.5 - 3.5 POST-[place] Goal INR 2.5; range 2.0 - 3.0 or Goal 3.0; range 2.5 - 3.5 Atrial Fibrillation Goal INR 2.5; range 2.0 - 3.0 Ischemic Stroke Goal INR 2.5; range 2.0 - 3.0 For additional information see Guidelines for Anticoagulation available from the pharmacy James Matos. [phone] Blood specimen (specimen) 08/10/2008 10:43 AM SR. MEDIA MANAGER 08/10/2008 10:45 AM SR. MEDIA MANAGER Christiano Ramírez MD HEMATOLOGY ORDERABLES Edited Performing Organization Address [facility] de Phone Number INTERFACE SYSTEM Refer to clinic/hospital department [facility] CLIA# [id number] [address] [place] [address] * (ABNORMAL) PLATELET COUNT (08/10/2008 10:43 AM SR. MEDIA MANAGER) PLATELETS 29(L) 140 - 440 K/ul [facility] Blood specimen (specimen) 08/10/2008 10:43 AM SR. MEDIA MANAGER 08/10/2008 10:45 AM SR. MEDIA MANAGER Christiano Ramírez MD HEMATOLOGY ORDERABLES Final Res ult Performing Organization Address [facility] Phone Number INTERFACE SYSTEM Refer to clinic/hospital department [facility] CLIA# [id number] [address] [place] [address] documented in this encounter Visit Diagnoses Diagnosis Other ascites documented in this encounter Care Teams Wheelchair Van Driver Relationship Specialty Start Date End Date Smith Martínez DO [address] [address] PCP - General Internal Medicine 08/06/18 documented as of this encounter
--- OUTSIDE RECORDS SUMMARY | 2025-06-17 12:30 | XMS_ITS | Encounter Summary ---
Author Organization [facility] Address [address] [place] [address] Care Team Providers Care Sales And Marketing Intern Name Role Phone Smith Martínez DO Primary Care Provide r Encounter Details Date Type Department Care Team (Latest Contact Info) Description 08/05/2006 Outpatient Historical [facility] Gen Spec Surg [place] [address] [facility] [address] [place] [address] Mary Ruiz, SPECIAL MAKEUP FX ARTIST INSTRUCTOR NO ADDRESS ON FILE Unilat Ing Hernia (Primary Dx); Follow-Up Examination, Following Unspecified Surgery Social History Tobacco Use Types Packs/Day Years Used Date Smoking Tobacco: Never Assessed Comments Unknown Sex and Gender Information Value Date Recorded Sex Assigned at Not on file Legal Sex Female 6:13 AM WHIPPER BEATER Gender Identity Not on file Sexual Orientation Not on file documented as of this encounter Plan of Treatment Not on file documented as of this encounter Visit Diagnoses Diagnosis Inguinal hernia without mention of obstruction or gangrene, unilateral or unspecified, (not specified as recurrent)- Primary Follow-up examination, following unspecified surgery documented in this encounter Care Teams Sales And Marketing Intern Relationship Specialty Start Date End Date Smith Martínez DO [address] [place] [address] PCP - General Internal Medicine 08/06/18 documented as of this encounter
--- OUTSIDE RECORDS SUMMARY | 2025-06-17 12:30 | XMS_ITS | Encounter Summary ---
Author Organization [facility] Address [address] [place] [address] Care Team Providers Care Mechanical Engineering Professor Name Role Phone MartínezSmith nowak Benedict Primary Care Provide r Reason for Referral * Outpatient Services (Routine) - Closed Specialty Diagnoses / Procedures Referred By Alfredo smith Referred To Contact Diagnoses Other screening mammogram Procedures MAMMO DIGITAL SCREEN BILAT Ligia Parra, MACHINE TESTER [address] [address] Phone: tel: fax: [facility] Pre-Registration [place] CALL TO MAKE APPOINTMENT ONLY [address] [place] [address] Phone: tel: fax: Referral ID Status Reason Start Date Expiration Date Visits Re quested Visits Authorized [id number] Closed 03/10/2012 03/10/2013 1 1 Encounter Details Date Type Department Care Team (Late st Contact Info) Description 03/10/2012 Ancillary Orders [facility] Pre-Registration [place] CALL TO MAKE APPOINTMENT ONLY [address] [place] [address] Ligia Parra MACHINE TESTER [address] [address] Other screening mammogram Social History Tobacco Use Types Packs/Day Years Used Date Smoking Tobacco: Never Alcohol Use Standard Drinks/Week Comments No 0 (1 standard drink = 0.6 oz pur e alcohol) Comments No Sex and Gender Information Value Date Recorded Sex Assigned at Not on file Legal Sex Female 6:13 AM CNC SERVICE ENGINEER Gender Identity Not on file Sexual Orientation Not on file documented as of this encounter Plan of Treatment Not on file documented as of this encounter Results * MAMMO DIGITAL SCREEN BILAT (04/16/2012 11:15 AM CDT) Anatomical Region Laterality Modality Breast Bilateral Mammography 04/16/2012 11:0 5 AM CDT Impressions 04/21/2012 2:47 PM CDT IMPRESSION: Annual screening mammogram. JT/valdo - uploaded from [employer] - Narrative 04/21/2012 2:47 PM CDT REASON [...] from Power Scribe - us Ligia Parra MACHINE TESTER MAMMO ORDERABLES Final Result documented in this encounter Visit Diagnoses Diagnosis Other screening mammogram Other screening mammogram documented in this encounter Care Teams Mechanical Engineering Professor Relationship Specialty Start Date End Date Smith Martínez DO [address] [address] PCP - General Internal Medicine 08/06/18 documented as of this encounter
--- OUTSIDE RECORDS SUMMARY | 2025-06-17 12:30 | XMS_ITS | Encounter Summary ---
Author Organization [facility] Address [address] [place] [address] Care Team Providers Care Debeader Name Role Phone Smith Martínez DO Primary Care Provide r Encounter Details Date Type Department Care Team (Latest Contact Info) Description 04/01/2005 Outpatient [facility] Gastroenterology[address] [place] [address] Sloan Vickers MD [address] [place] [address] [address] [place] [address] VIR HEP NEC W/O COMA W HEP C CHRON (CMS/HCC) (Primary Dx) Social History Tobacco Use Types Packs/Day Years Used Date Smoking Tobacco: Never Assessed Comments Unknown Sex and Gender Information Value Date Recorded Sex Assigned at Not on file Legal Sex Female 6:13 AM 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
--- OUTSIDE RECORDS SUMMARY | 2025-06-17 12:30 | XMS_ITS | Encounter Summary ---
Author Organization [facility] Address [address] [place] [address] Care Team Providers Care Wire Frame Maker Name Role Phone Smith Martínez Primary Care [...] file Legal Sex Female 6:13 AM FISH SKINNING MACHINE FEEDER Gender Identity Not on file Sexual Orientation [...] CDT) PROTIME 18.6(H) 12.8 - 15.8 Secs [facility] Comment:As of 2007 not e change in normal range. INR 1.4 [facility] Comment: Expected Values for INR: DVT/PE Goal INR 2.5; range 2.0 - 3.0 Valve Replacement Tissue Goal INR 2.5; range 2.0 - 3.0 Mechanical Goal INR 3.0; range 2.5 - 3.5 POST-CO Goal INR 2.5; range 2.0 - 3.0 or Goal 3.0; range 2.5 - 3.5 Atrial Fibrillation Goal INR 2.5; range 2.0 - 3.0 Ischemic Stroke Goal INR 2.5; range 2.0 - 3.0 For additional information see Guidelines for Anticoagulation available from the pharmacy Lucy Rangel Pharm D. [phone] Blood specimen (specimen) 04/14/2008 9:13 AM CDT 04/14/2008 9:15 AM CDT us Christiano Ramírez MD HEMATOLOGY ORDERABLES Final Res ult Performing Organization Address [facility] [place] Phone Number INTERFACE SYSTEM Refer to clinic/hospital department [facility] CLIA# [id number] [address] [place] [address] * (ABNORMAL) PLATELET COUNT (04/14/2008 9:13 AM CDT) PLATELETS 45(L) 140 - 440 K/ul [facility] Blood specimen (specimen) 04/14/2008 9:13 AM CDT 04/14/2008 9:15 AM CDT Christiano Ramírez MD HEMATOLOGY ORDERABLES Final Res ult Performing Organization Address [facility] [place] Phone Number INTERFACE SYSTEM Refer to clinic/[facility] CLIA# [id number] [address] [place] [address] * (ABNORMAL) PTT (04/14/2008 9:13 AM CDT) PTT 39.4(H) 22.5 - 36.5 Secs [facility] Comment: Therapeutic Range: Hi-level PE/DVT [...] ult INTERFACE SYSTEM Refer to clinic/hospital department [facility] CLIA# [id number] [address] [place] [address] documented in this encounter Visit Diagnoses Diagnosis Other ascites Unspecified essential hypertension Thrombocytopenia, unspecified 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
--- OUTSIDE RECORDS SUMMARY | 2025-06-17 12:30 | XMS_ITS | Encounter Summary ---
Author Organization [facility] Address [address] [place] [address] Care Team Providers Care Applications Support Analyst Name Role Phone Smith Martínez DO Primary Care Provide r Encounter Details Date Type Department Care Team (Latest Contact Info) Description 12/20/2003 Outpatient Historical [facility] [address] [place] [address] [address] [place] [address] Jakub Berry MD NO ADDRESS ON FILE APLASTIC ANEMIAS NEC (Primary Dx); SPLENOMEGALY Social History Tobacco Use Types Packs/Day Years Used Date Smoking Tobacco: Never Assessed Comments Unknown Sex and Gender Information Value Date Recorded Sex Assigned at Not on file Legal Sex Female 6:13 AM SUPERVISOR CELLARS Gender Identity Not on file Sexual Orientation Not on file documented as of this encounter Plan of Treatment Not on file documented as of this encounter Visit Diagnoses Diagnosis Other specified aplastic anemias- Primary Splenomegaly documented in this encounter Care Teams Applications Support Analyst Relationship Specialty Start Date End Date Smith Martínez DO [address] [place] [address] PCP - General Internal Medicine 08/06/18 documented as of this encounter
--- OUTSIDE RECORDS SUMMARY | 2025-06-17 12:31 | XMS_ITS | Encounter Summary ---
Author Organization [facility] Address [address] [place] [address] Care Team Providers Care Internship Name Role Phone Smith Martínez DO Primary Care Provide r Encounter Details Date Type Department Care Team (Latest Contact Info) Description 02/11/2005 Outpatient [facility] Gastroenterology[address] [place] [address] Sloan Vickers MD [address] [place] [address] [address] [place] [address] VIR HEP NEC W/O COMA W HEP C CHRON (CMS/HCC) (Primary Dx); CIRRHOSIS OF LIVER NOS (CMS/HCC) Social History Tobacco Use Types Packs/Day Years Used Date Smoking Tobacco: Never Assessed Comments Unknown Sex and Gender Information Value Date Recorded Sex Assigned at Not on file Legal Sex Female 6:13 AM PROTOHISTORIAN Gender Identity Not on file Sexual Orientation [...] alcohol documented in this encounter Care Teams Internship Relationship Specialty Start Date End Date Smith Martínez DO [address] [place] [address] PCP - General Internal Medicine 08/06/18 documented as of this encounter
--- OUTSIDE RECORDS SUMMARY | 2025-06-17 12:31 | XMS_ITS | Encounter Summary ---
Author Organization [facility] Address [address] [place] [address] Care Team Providers Care Backer Up Name Role Phone Smith Martínez DO Primary Care Provide r Encounter Details Date Type Department Care Team (Latest Contact Info) Description 03/15/2008 Outpatient Historical [facility] Imaging Services [address] [place] [address] Christiano Ramírez MD NO ADDRESS [...] on file Legal Sex Female 6:13 AM SCREENER AND BLENDER Gender Identity Not on file Sexual Orientation [...] thrombosis documented in this encounter Care Teams Backer Up Relationship Specialty Start Date End Date Smith Martínez DO [address] [address] PCP - General Internal Medicine 08/06/18 documented as of this encounter
--- OUTSIDE RECORDS SUMMARY | 2025-06-17 12:31 | XMS_ITS | Encounter Summary ---
Author Organization [facility] Address [address] [place] [address] Care Team Providers Care Outside Property Agent Name Role Phone Smith Martínez DO Primary Care Provide r Encounter Details Date Type Department Care Team (Latest Contact Info) Description 12/12/2004 Outpatient Historical [facility] [address] [facility] [address] [place] [address] Sherrie Arambula MD NO ADDRESS ON FILE SCREENING MAMM-MAILG NEOPL-OTHER (Primary Dx) Social History Tobacco Use Types Packs/Day Years Used Date Smoking Tobacco: Never Assessed Comments Unknown Sex and Gender Information Value Date Recorded Sex Assigned at Not on file Legal Sex Female 6:13 AM PATHOLOGY TECH Gender Identity Not on file Sexual Orientation Not on file documented as of this encounter Plan of Treatment Not on file documented as of this encounter Visit Diagnoses Diagnosis Other screening mammogram- Primary documented in this encounter Care Teams Outside Property Agent Relationship Specialty Start Date End Date Smith Martínez DO [address] [facility] [address] [place] [address] PCP - General Internal Medicine 08/06/18 documented as of this encounter
--- OUTSIDE RECORDS SUMMARY | 2025-06-17 12:31 | XMS_ITS | Encounter Summary ---
Author Organization [facility] Address [address] [facility] Attn: [place] [address] Care Team Providers Care Aircraft Engineer Name Role Phone Smith Martínez DO [...] on file Legal Sex Female 6:13 AM COMBINER Gender Identity Not on file Sexual Orientation Not on file documented as of this encounter Plan of Treatment Not on file documented as of this encounter Procedures Procedure Name Priority Date/Time Associated Diagnosis Comments ALPHA FETOPROTEIN TUMOR MARKER Routine 07/06/2007 4:17 PM COMBINER documented in this encounter Results * ALPHA FETOPROTEIN TUMOR MARKER (07/06/2007 4:17 PM COMBINER) ALPHA FETOPROTEIN MATERNAL 3.4 <=8.5 ng/mL INTERFACE SYSTEM 07/06/2007 4:17 PM COMBINER us Christiano Ramírez MD CHEMISTRY ORDERABLES Edited INTERFACE SYSTEM Refer to clinic/hospital department documented in this encounter Visit Diagnoses Not on filedocumented in this encounter Care Teams Aircraft Engineer Relationship Specialty Start Date End Date Smith Martínez DO [address] [facility] [address] [place] [address] PCP - General Internal Medicine 08/06/18 documented as of this encounter
--- OUTSIDE RECORDS SUMMARY | 2025-06-17 12:31 | XMS_ITS | Encounter Summary ---
Author Organization [facility] Address [address] [place] [address] Care Team Providers Care Nurse Transplant Name Role Phone Smith Martínez DO Primary Care Provide r Encounter Details Date Type Department Care Team (Latest Contact Info) Description 11/28/2004 Outpatient Historical [facility] Sherrie Allen FNP NO ADDRESS ON FILE VIR HEP NEC W/O COMA W HEP C CHRON (CMS/HCC) (Primary Dx); ANEMIA NEC; CHEST PAIN NOS Social History Tobacco Use Types Packs/Day Years Used Date Smoking Tobacco: Never Assessed Comments Unknown Sex and Gender Information Value Date Recorded Sex Assigned at Not on file Legal Sex Female 6:13 AM PRESIDENT CON[employer] Gender Identity Not on file Sexual Orientation Not on file documented as of this encounter Plan of Treatment Not on file documented as of this encounter Visit Diagnoses Diagnosis Chronic hepatitis C without mention of hepatic coma (CMS/HCC)- Primary Chronic hepatitis C without mention of hepatic coma Other specified anemias Chest pain, unspecified documented in this encounter Care Teams Nurse Transplant Relationship Specialty Start Date End Date Smith Martínez DO [address] [place] [address] PCP - General Internal Medicine 08/06/18 documented as of this encounter
--- OUTSIDE RECORDS SUMMARY | 2025-06-17 12:31 | XMS_ITS | Encounter Summary ---
Author Organization [facility] Address [address] [place] [address] Care Team Providers Care Animal Humane Agent Supervisor Name Role Phone Smith Martínez DO Primary Care Provide r Encounter Details Date Type Department Care Team (Latest Contact Info) Description 11/28/2004 Outpatient Historical [facility] Cardiovascular Services [address] [place] [address] Sloan Vickers MD [address] [place] [address] [address] [place] [address] CHEST PAIN NOS (Primary Dx) Social History Tobacco Use Types Packs/Day Years Used Date Smoking Tobacco: Never Assessed Comments Unknown Sex and Gender Information Value Date Recorded Sex Assigned at Not on file Legal Sex Female 6:13 AM PATHOLOGY SUPERVISOR Gender Identity Not on file Sexual Orientation Not on file documented as of this encounter Plan of Treatment Not on file documented as of this encounter Visit Diagnoses Diagnosis Chest pain, unspecified- Primary documented in this encounter Care Teams Animal Humane Agent Supervisor Relationship Specialty Start Date End Date Smith Martínez DO [address] [place] [address] PCP - General Internal Medicine 08/06/18 documented as of this encounter
--- OUTSIDE RECORDS SUMMARY | 2025-06-17 12:31 | XMS_ITS | Encounter Summary ---
Author Organization [facility] Address [address] [place] [address] Care Team Providers Care Museum Librarian Name Role Phone Smith Martínez DO Primary Care Provide r Encounter Details Date Type Department Care Team (Late st Contact Info) Description 01/17/2005 Outpatient [facility] Gastroenterology[address] [place] [address] Social History Tobacco Use Types Packs/Day Years Used Date Smoking Tobacco: Never Assessed Comments Unknown Sex and Gender Information Value Date Recorded Sex Assigned at Not on file Legal Sex Female 6:13 AM SCRUM PRODUCT OWNER Gender Identity Not on file Sexual Orientation Not on file documented as of this encounter Plan of Treatment Not on file documented as of this encounter Visit Diagnoses Not on filedocumented in this encounter Care Teams Museum Librarian Relationship Specialty Start Date End Date Smith Martínez DO [address] [facility] 1 [place] [address] PCP - General Internal Medicine 08/06/18 documented as of this encounter
--- OUTSIDE RECORDS SUMMARY | 2025-06-17 12:31 | XMS_ITS | Encounter Summary ---
Author Organization [facility] Address [address] [place] [address] Care Team Providers Care Frickertron Checker Name Role Phone Smith Martínez DO Primary Care Provide r Encounter Details Date Type Department Care Team (Latest Contact Info) Description 03/16/[address] 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) Social History Tobacco Use Types Packs/Day Years Used Date Smoking Tobacco: Never Assessed Comments Unknown Sex and Gender Information Value Date Recorded Sex Assigned at Not on file Legal Sex Female 6:13 AM DIRECTOR MOBILE Gender Identity Not on file Sexual Orientation Not on file documented as of this encounter Plan of Treatment Not on file documented as of this encounter Visit Diagnoses Diagnosis Cirrhosis of liver without mention of alcohol (CMS/HCC)- Primary Cirrhosis of liver without mention of alcohol documented in this encounter Care Teams Frickertron Checker Relationship Specialty Start Date End Date Smith Martínez DO [address] [place] [address] PCP - General Internal Medicine 08/06/18 documented as of this encounter
--- OUTSIDE RECORDS SUMMARY | 2025-06-17 12:31 | XMS_ITS | Encounter Summary ---
Author Organization [facility] Address [address] [place] [address] Care Team Providers Care Mobile Application Engineer Name Role Phone MartínezSmith nowakhaniel Primary Care Provide r Reason for Referral * Outpatient Services (Routine) - Closed Specialty Diagnoses / Procedures Referred By Alfredo smith Referred To Contact Diagnoses Other screening mammogram Procedures MAMMO DIGITAL SCREEN BILAT Ligia Parra, ROLLER LEVELER OPERATOR [address] [address] Phone: tel: fax: [facility] Pre-Registration [place] CALL TO MAKE APPOINTMENT ONLY [address] [place] [address] Phone: tel: fax: Referral ID Status Reason Start Date Expiration Date V isits Requested Visits Authorized [id number] Closed F [facility] TO SCHEDULE (SGF) 04/29/2013 05/30/2014 1 1 Encounter Details Date Type Department Care Team (Late st Contact Info) Description 04/29/2013 Ancillary Orders [facility] Pre-Registration [place] CALL TO MAKE APPOINTMENT ONLY [address] [place] [address] Ligia Parra, ROLLER LEVELER OPERATOR [address] [address] Other screening mammogram (Primary Dx) Social History Tobacco Use Types Packs/Day Years Used Date Smoking Tobacco: Never Alcohol Use Standard Drinks/Week Comments No 0 (1 standard drink = 0.6 oz pur e alcohol) Comments No Sex and Gender Information Value Date Recorded Sex Assigned at Not on file Legal Sex Female 6:13 AM FRONT END SOFTWARE ENGINEER Gender Identity Not on file Sexual [...] findings since the prior mammogram(s). Ligia Parra ROLLER LEVELER OPERATOR MAMMO ORDERABLES Final Result documented in this encounter Visit Diagnoses Diagnosis Other screening mammogram- Primary Other screening mammogram documented in this encounter Care Teams Mobile Application Engineer Relationship Specialty Start Date End Date Smith Martínez DO [address] [phone] PCP - General Internal Medicine 08/06/18 documented as of this encounter
--- OUTSIDE RECORDS SUMMARY | 2025-06-17 12:31 | XMS_ITS | Encounter Summary ---
Author Organization [facility] Address [address] [place] [address] Care Team Providers Care Morgue Librarian Name Role Phone Smith Martínez DO Primary Care Provide r Encounter Details Date Type Department Care Team (Latest Contact Info) Description 12/12/2004 Outpatient [facility] [address] [place], [place] [address] Amauri Hendrix MD NO ADDRESS ON FILE SCREENING MAMM-MAILG NEOPL-OTHER (Primary Dx) Social History Tobacco Use Types Packs/Day Years Used Date Smoking Tobacco: Never Assessed Comments Unknown Sex and Gender Information Value Date Recorded Sex Assigned at Not on file Legal Sex Female 6:13 AM DRAUGHTSMAN Gender Identity Not on file Sexual Orientation Not on file documented as of this encounter Plan of Treatment Not on file documented as of this encounter Visit Diagnoses Diagnosis Other screening mammogram- Primary documented in this encounter Care Teams Morgue Librarian Relationship Specialty Start Date End Date Smith Martínez DO [address] [place] [address] PCP - General Internal Medicine 08/06/18 documented as of this encounter
--- OUTSIDE RECORDS SUMMARY | 2025-06-17 12:31 | XMS_ITS | Encounter Summary ---
Author Organization [facility] Address [address] [place] [address] Care Team Providers Care Opto Mechanical Engineer Name Role Phone Smith Martínez DO Primary Care Provide r Encounter Details Date Type Department Care Team (Latest Contact Info) Description 12/12/2004 Outpatient [facility] Gastroenterology[address] [place] [address] Sloan Vickers MD [address] [place] [address] [address] [place] [address] VIR HEP NEC W/O COMA W HEP C CHRON (CMS/HCC) (Primary Dx); CIRRHOSIS OF LIVER NOS (CMS/HCC) Social History Tobacco Use Types Packs/Day Years Used Date Smoking Tobacco: Never Assessed Comments Unknown Sex and Gender Information Value Date Recorded Sex Assigned at Not on file Legal Sex Female 6:13 AM NATIONAL SALES REPRESENTATIVE Gender Identity Not on file [...] alcohol documented in this encounter Care Teams Opto Mechanical Engineer Relationship Specialty Start Date End Date Smith Martínez DO [address] [place] [address] PCP - General Internal Medicine 08/06/18 documented as of this encounter
--- OUTSIDE RECORDS SUMMARY | 2025-06-17 12:31 | XMS_ITS | Encounter Summary ---
Author Organization [facility] Address [address] [place] [address] Care Team Providers Care Thoracic Medicine Physician Name Role Phone Smith Martínez DO Primary Care Provide r Encounter Details Date Type Department Care Team (Latest Contact Info) Description 12/27/2004 Outpatient Historical [facility] Imaging Services [address] [place] [address] Amauri Hendrix MD NO ADDRESS ON FILE JOINT PAIN-PELVIS (Primary Dx) Social History Tobacco Use Types Packs/Day Years Used Date Smoking Tobacco: Never Assessed Comments Unknown Sex and Gender Information Value Date Recorded Sex Assigned at Not on file Legal Sex Female 6:13 AM JAVA TECH Gender Identity Not on file Sexual Orientation Not on file documented as of this encounter Plan of Treatment Not on file documented as of this encounter Visit Diagnoses Diagnosis Pain in joint, pelvic region and thigh- Primary documented in this encounter Care Teams Thoracic Medicine Physician Relationship Specialty Start Date End Date Smith Martínez DO [address] [place] [address] PCP - General Internal Medicine 08/06/18 documented as of this encounter
--- OUTSIDE RECORDS SUMMARY | 2025-06-17 12:31 | XMS_ITS | Encounter Summary ---
Author Organization [facility] Address [address] [place] [address] Care Team Providers Care Transformer Repairer Name Role Phone Smith Martínez DO Primary Care Provide r Encounter Details Date Type Department Care Team (Late st Contact Info) Description 08/06/2007 Outpatient [facility] Gastroenterology[address] [place] [address] Christiano Ramírez MD NO ADDRESS ON FILE Social History Tobacco Use Types Packs/Day Years Used Date Smoking Tobacco: Never Assessed Comments Unknown Sex and Gender Information Value Date Recorded Sex Assigned at Not on file Legal Sex Female 6:13 AM FLOORWORKER DISTRIBUTOR Gender Identity Not on file Sexual Orientation Not on file documented as of this encounter Plan of Treatment Not on file documented as of this encounter Visit Diagnoses Not on filedocumented in this encounter Care Teams Transformer Repairer Relationship Specialty Start Date End Date Smith Martínez DO [address] [place] [address] PCP - General Internal Medicine 08/06/18 documented as of this encounter
--- OUTSIDE RECORDS SUMMARY | 2025-06-17 12:31 | XMS_ITS | Encounter Summary ---
Author Organization [facility] Address [address] [place] [address] Care Team Providers Care Senior Tax Accountant Name Role Phone Smith Martínez DO Primary Care Provide r Encounter Details Date Type Department Care Team (Latest Contact Info) Description 03/16/2007 Outpatient [facility] Gastroenterology- [address] [place] [address] Christiano Ramírez MD NO ADDRESS ON FILE Chronic Hepatitis C without Mention of Hepatic Coma (CMS/HCC) (Primary Dx) Social History Tobacco Use Types Packs/Day Years Used Date Smoking Tobacco: Never Assessed Comments Unknown Sex and Gender Information Value Date Recorded Sex Assigned at Not on file Legal Sex Female 6:13 AM TRACK LAYER Gender Identity Not on file Sexual Orientation Not on file documented as of this encounter Plan of Treatment Not on file documented as of this encounter Visit Diagnoses Diagnosis Chronic hepatitis C without mention of hepatic coma (CMS/HCC)- Primary Chronic hepatitis C without mention of hepatic coma documented in this encounter Care Teams Senior Tax Accountant Relationship Specialty Start Date End Date Smith Martínez DO [address] [facility] 1 [place] [address] PCP - General Internal Medicine 08/06/18 documented as of this encounter
--- OUTSIDE RECORDS SUMMARY | 2025-06-17 12:31 | XMS_ITS | Encounter Summary ---
Author Organization [facility] Address [address] [place] [address] Care Team Providers Care Burn Out Tender Lace Name Role Phone Smith Martínez DO Primary Care Provide r Encounter Details Date Type Department Care Team (Late st Contact Info) Description 07/29/2007 Inpatient Historical [facility] Imaging Services [address] [place] [address] Christiano Ramírez MD NO ADDRESS ON FILE Social History Tobacco Use Types Packs/Day Years Used Date Smoking Tobacco: Never Assessed Comments Unknown Sex and Gender Information Value Date Recorded Sex Assigned at Not on file Legal Sex Female 6:13 AM CORK SLABS SAWYER Gender Identity Not on file Sexual Orientation Not on file documented as of this encounter Plan of Treatment Not on file documented as of this encounter Visit Diagnoses Not on filedocumented in this encounter Care Teams Burn Out Tender Lace Relationship Specialty Start Date End Date Smith Martínez DO [address] [place] [address] PCP - General Internal Medicine 08/06/18 documented as of this encounter
--- OUTSIDE RECORDS SUMMARY | 2025-06-17 12:31 | XMS_ITS | Encounter Summary ---
Author Organization [facility] Address [address] [place] [address] Care Team Providers Care Internal Audit Director Name Role Phone Smith Martínez DO Primary Care Provide r Encounter Details Date Type Department Care Team (Latest Contact Info) Description 12/27/2004 Outpatient [facility] Gastroenterology[address] [place] [address] Sloan Vickers MD [address] [place] [address] [address] [place] [address] VIR HEP NEC W/O COMA W HEP C CHRON (CMS/HCC) (Primary Dx); CIRRHOSIS OF LIVER NOS (CMS/HCC) Social History Tobacco Use Types Packs/Day Years Used Date Smoking Tobacco: Never Assessed Comments Unknown Sex and Gender Information Value Date Recorded Sex Assigned at Not on file Legal Sex Female 6:13 AM PARACHUTE RIGGER Gender Identity Not on file Sexual Orientation [...] alcohol documented in this encounter Care Teams Internal Audit Director Relationship Specialty Start Date End Date Smith Martínez DO [address] [place] [address] PCP - General Internal Medicine 08/06/18 documented as of this encounter
--- OUTSIDE RECORDS SUMMARY | 2025-06-17 12:31 | XMS_ITS | Encounter Summary ---
Author Organization [facility] Address [address] [place] [address] Care Team Providers Care Harness Fitter Name Role Phone Smith Martínez DO Primary Care Provide r Encounter Details Date Type Department Care Team (Latest Contact Info) Description 01/09/2005 Outpatient [facility] Gastroenterology[address] [place] [address] Sloan Vickers MD [address] [place] [address] [address] [place] [address] VIR HEP NEC W/O COMA W HEP C CHRON (CMS/HCC) (Primary Dx); CIRRHOSIS OF LIVER NOS (CMS/HCC) Social History Tobacco Use Types Packs/Day Years Used Date Smoking Tobacco: Never Assessed Comments Unknown Sex and Gender Information Value Date Recorded Sex Assigned at Not on file Legal Sex Female 6:13 AM DRINK BOX MECHANIC Gender Identity Not on file Sexual [...] alcohol documented in this encounter Care Teams Harness Fitter Relationship Specialty Start Date End Date Smith Martínez DO [address] [place] [address] PCP - General Internal Medicine 08/06/18 documented as of this encounter
--- OUTSIDE RECORDS SUMMARY | 2025-06-17 12:31 | XMS_ITS | Encounter Summary ---
Author Organization [facility] Address [address] [place] [address] Care Team Providers Care Jewel Stripper Name Role Phone Smith Martínez DO Primary Care Provide r Encounter Details Date Type Department Care Team ([facility] Contact Info) Description 12/12/2004 Outpatient Historical [facility] Ligia Parra, PASTE UP WORKER [address] [address] Social History Tobacco Use Types Packs/Day Years Used Date Smoking Tobacco: Never Assessed Comments Unknown Sex and Gender Information Value Date Recorded Sex Assigned at Not on file Legal Sex Female 6:13 AM ACID MAKER Gender Identity Not on file Sexual Orientation Not on file documented as of this encounter Plan of Treatment Not on file documented as of this encounter Visit Diagnoses Not on filedocumented in this encounter Care Teams Jewel Stripper Relationship Specialty Start Date End Date Smith Martínez DO [address] [facility] [address] [place] [address] PCP - General Internal Medicine 08/06/18 documented as of this encounter
--- OUTSIDE RECORDS SUMMARY | 2025-06-17 12:31 | XMS_ITS | Encounter Summary ---
Author Organization [facility] Address [address] [facility] Attn: [place] [address] Care Team Providers Care Design/Animation Instructor Name Role Phone Smith Martínez Primary Care [...] on file Legal Sex Female 6:13 AM HIDE SHAKER Gender Identity Not on file Sexual Orientation [...] FETOPROTEIN MATERNAL 2.9 0.0 - 8.1 ng/mL [facility] Comment: AFP assay methodology was changed from the Vitros ECI to the Advia Centaur on 10/19/07 Collection date/time has been modified to: 14:11:00. Previous collection date/time: 16:46:00. AFP assay methodology was changed from the Vitros ECI to the Advia Centaur on 10/19/07 Blood specimen (specimen) 03/14/2008 2:11 PM CDT 03/14/2008 4:46 PM CDT us Christiano Ramírez MD CHEMISTRY ORDERABLES Edited [facility] CLIA# [id number] [address] [place] [address] documented in this encounter Visit Diagnoses Not on filedocumented in this encounter Care Teams Design/Animation Instructor Relationship Specialty Start Date End Date Smith Martínez DO [address] [address] PCP - General Internal Medicine 08/06/18 documented as of this encounter
--- OUTSIDE RECORDS SUMMARY | 2025-06-17 12:31 | XMS_ITS | Encounter Summary ---
Author Organization [facility] Address [address] [place] [address] Care Team Providers Care Distributor Advertising Material Name Role Phone Smith Martínez Primary Care Provide r Reason for Referral * Outpatient Services (Routine) - Closed Specialty Diagnoses / Procedures Referred By Alfredo smith Referred To Contact Diagnoses Memory changes Procedures MRI BRAIN WO CONTRAST Edward Weber MD Phone: tel: fax: [facility] Pre-Registration [place] CALL TO MAKE APPOINTMENT ONLY [address] [place] [address] Phone: tel: fax: Referral ID Status Reason Start Date Expiration Date V isits Requested Visits Authorized [id number] Closed F MC TO SCHEDULE (SGF) 06/18/2016 07/19/2017 1 1 Encounter Details Date Type Department Care Team (Latest Contact Info) Description 06/18/2016 Ancillary Orders [facility] Pre-Registration [place] CALL TO MAKE APPOINTMENT ONLY [address] [place] [address] Edward Weber MD [address] [address] Memory changes (Primary Dx) Social History Tobacco Use Types Packs/Day Years Used Date Smoking Tobacco: Never Smokeless Tobacco: Never Alcohol Use Standard Drinks/Week Comments No 0 (1 standard drink = 0.6 oz pur e alcohol) Comments No Sex and Gender Information Value Date Recorded Sex Assigned at Not on file Legal Sex Female 6:13 AM TRIMMER AND BORER MACHINE OPERATOR Gender Identity Not on file Sexual Orientation Not on file Occupation Industry Job Start Date Job End Date Not on file Not on file Not on file Not on file documented as of this encounter Plan of Treatment Not on file documented as of this encounter Results * MRI BRAIN WO CONTRAST (07/01/2016 11:18 AM TRIMMER AND BORER MACHINE OPERATOR) Anatomical Region Laterality Modality Head Magnetic Resonan ce 07/01/2016 11:1 8 AM TRIMMER AND BORER MACHINE OPERATOR Impressions 07/01/2016 11:41 AM TRIMMER AND BORER MACHINE OPERATOR IMPRESSION: Please see below. Exam: MRI BRAIN [...] loss documented in this encounter Care Teams Distributor Advertising Material Relationship Specialty Start Date End Date Smith Martínez DO [address] [address] PCP - General Internal Medicine 08/06/18 documented as of this encounter
--- OUTSIDE RECORDS SUMMARY | 2025-06-17 12:31 | XMS_ITS | Encounter Summary ---
Author Organization [facility] Address [address] [place] [address] Care Team Providers Care Feed Inspection Supervisor Name Role Phone MartínezSmith nowak Benedict Primary Care Provide r Reason for Referral * Outpatient Services (Routine) - Closed Specialty Diagnoses / Procedures Referred By Alfredo smith Referred To Contact Diagnoses Visit for screening mammogram Procedures MAMMO DIGITAL SCREEN BILAT Ligia Parra, ANURAG [address] [address] Phone: tel: fax: [facility] Pre-Registration [place] CALL TO MAKE APPOINTMENT ONLY [address] [place] [address] Phone: tel: fax: Referral ID Status Reason Start Date Expiration Date Visits Re quested Visits Authorized [id number] Closed 11/23/2015 12/23/2016 1 1 Encounter Details Date Type Department Care Team (Late st Contact Info) Description 11/23/2015 Ancillary Orders [facility] Pre-Registration [place] CALL TO MAKE APPOINTMENT ONLY [address] [place] [address] Ligia Parra PIE FILLER [address] [address] Visit for screening mammogram (Primary Dx) Social History Tobacco Use Types Packs/Day Years Used Date Smoking Tobacco: Never Alcohol Use Standard Drinks/Week Comments No 0 (1 standard drink = 0.6 oz pur e alcohol) Comments No Sex and Gender Information Value Date Recorded Sex Assigned at Not on file Legal Sex Female 6:13 AM ODD BUNDLE WORKER Gender Identity Not on file Sexual [...] mammogram documented in this encounter Care Teams Feed Inspection Supervisor Relationship Specialty Start Date End Date Smith Martínez DO [address] [address] PCP - General Internal Medicine 08/06/18 documented as of this encounter
--- OUTSIDE RECORDS SUMMARY | 2025-06-17 12:31 | XMS_ITS | Encounter Summary ---
Author Organization [facility] Address [address] [place] [address] Care Team Providers Care Filing And Polishing Supervisor Name Role Phone MartínezSmith nowakhaniel Primary Care Provide r Reason for Referral * Outpatient Services (Routine) - Closed Specialty Diagnoses / Procedures Referred By Alfredo smith Referred To Contact Diagnoses Other screening mammogram Procedures MAMMO DIGITAL SCREEN BILAT Ligia Parra, PAYMASTER OF PURSES [address] [address] Phone: tel: fax: [facility] Pre-Registration [place] CALL TO MAKE APPOINTMENT ONLY [address] [place] [address] Phone: tel: fax: Referral ID Status Reason Start Date Expiration Date V isits Requested Visits Authorized [id number] Closed F [facility] TO SCHEDULE (SGF) 05/30/2014 06/30/2015 1 1 Encounter Details Date Type Department Care Team (Late st Contact Info) Description 05/30/2014 Ancillary Orders [facility] Pre-Registration [place] CALL TO MAKE APPOINTMENT ONLY [address] [place] [address] Ligia Parra, PAYMASTER OF PURSES [address] [address] Other screening mammogram (Primary Dx) Social History Tobacco Use Types Packs/Day Years Used Date Smoking Tobacco: Never Alcohol Use Standard Drinks/Week Comments No 0 (1 standard drink = 0.6 oz pur e alcohol) Comments No Sex and Gender Information Value Date Recorded Sex Assigned at Not on file Legal Sex Female 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
--- OUTSIDE RECORDS SUMMARY | 2025-06-17 12:31 | XMS_ITS | Encounter Summary ---
Author Organization [facility] Address [address] [place] [address] Care Team Providers Care Placement Manager Name Role Phone Smith Martínez DO Primary Care Provide r Encounter Details Date Type Department Care Team (Latest Contact Info) Description 07/06/2007 Outpatient [facility] Gastroenterology[address] [place] [address] Christiano Ramírez MD NO ADDRESS ON FILE Chronic Hepatitis C without Mention of Hepatic Coma (CMS/HCC) (Primary Dx); Vaccine for Viral Hepatitis Social History Tobacco Use Types Packs/Day Years Used Date Smoking Tobacco: Never Assessed Comments Unknown Sex and Gender Information Value Date Recorded Sex Assigned at Not on file Legal Sex Female 6:13 AM ASBESTOS REMOVER Gender Identity Not on file Sexual Orientation [...] hepatitis documented in this encounter Care Teams Placement Manager Relationship Specialty Start Date End Date Smith Martínez DO [address] [facility] [place] [address] PCP - General Internal Medicine 08/06/18 documented as of this encounter
--- OUTSIDE RECORDS SUMMARY | 2025-06-17 12:31 | XMS_ITS | Encounter Summary ---
Author Organization [facility] Address [address] [place] [address] Care Team Providers Care Bender Machine Operator Name Role Phone Smith Martínez DO Primary Care Provide r Encounter Details Date Type Department Care Team (Latest Contact Info) Description 01/23/2005 Outpatient [facility] Gastroenterology[address] [place] [address] Sloan Vickers MD [address] [place] [address] [address] [place] [address] VIR HEP NEC W/O COMA W HEP C CHRON (CMS/HCC) (Primary Dx); CIRRHOSIS OF LIVER NOS (CMS/HCC) Social History Tobacco Use Types Packs/Day Years Used Date Smoking Tobacco: Never Assessed Comments Unknown Sex and Gender Information Value Date Recorded Sex Assigned at Not on file Legal Sex Female 6:13 AM 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
--- OUTSIDE RECORDS SUMMARY | 2025-06-17 12:31 | XMS_ITS | Encounter Summary ---
Author Organization [facility] Address [address] [place] [address] Care Team Providers Care Education Technician Name Role Phone Smith Martínez DO Primary Care Provide r Encounter Details Date Type Department Care Team (Latest Contact Info) Description 03/17/2008 Outpatient Historical [facility] Endoscopy [address] [place] [address] Christiano Ramírez MD NO ADDRESS [...] on file Legal Sex Female 6:13 AM LMSW Gender Identity Not on file Sexual Orientation [...] penicillin documented in this encounter Care Teams Education Technician Relationship Specialty Start Date End Date Smith Martínez DO [address] [facility] [address] [place] [address] PCP - General Internal Medicine 08/06/18 documented as of this encounter
--- OUTSIDE RECORDS SUMMARY | 2025-06-17 12:31 | XMS_ITS | Clinical Summary ---
Author Organization [facility] Address [address] [facility] [place] [address] Care Team Providers Care Nurse Wound Name Role Phone Smith Martínez DO Primary [...] on file Legal Sex Female 6:13 AM LORRY WEIGHER Gender Identity Not on file Sexual Orientation [...] 62.1 kg (137 lb) 08/01/2020 10:59 AM LORRY WEIGHER Height 160 cm (5' 3 ) 08/01/2020 10:59 AM LORRY WEIGHER Body Mass Index 24.27 08/01/2020 10:59 AM LORRY WEIGHER Plan of Treatment Health Maintenance Due Date [...] Advance Directives For more information, please contact: [phone] * Full Code (Latest Code Status on [...] 11:57 AM 03/15/2009 2:12 AM Care Teams Nurse Wound Relationship Specialty Start Date End Date Smith Martínez DO [address] [facility] [address] [place] [address] PCP - General Internal Medicine 08/06/18
--- NOTE | 2025-06-17 13:13 | XR_ITS ---
WS: [id number] Portable AP upright chest, 06/17/2025 Clinical Data: sob Comparison: Two-view chest, 05/16/2025 Findings: No nodules or masses are seen. There are bilateral pleural effusions unchanged. The heart is enlarged. There is a mitral valve calcification. The aortic arch shows calcification and tortuosity of the descending thoracic aorta. No pneumonia or pneumothorax is seen. The pulmonary vascularity is not increased. There is a dense calcification in the tail of the pancreas unchanged. XR/XR chest 1V portable [id number] Impression: 1. Cardiomegaly and atherosclerosis. 2. Small bilateral pleural effusions unchanged.
--- NOTE | 2025-06-17 13:13 | ECG_ITS ---
[facility]: 2022-08-07 Pat Name: Echo Wirght Department: Room: Gender: Female Beauty Therapist: : 1945 Requested By: Poncho Lopez Order Number: [id number] Stephanie MD: Herb Minor M.D. Measurements Intervals Marathon Rate: 51 P: 74 CO: 196 QRS: 58 QRSD: 97 T: 57 QT: 488 QTc: 453 Interpretive Statements SINUS BRADYCARDIA Compared to ECG 02/21/2022 11:53:23 Sinus rhythm no longer present T-wave abnormality no longer present Electronically Signed On 06-17-2025 15:26:16 CDT by Herb Minor M.D. [email or web address]
--- NOTE | 2025-06-17 13:14 | W.ED.RECABL ---
HPI - Recheck/Abnormal Lab/Rx General: Chief Complaint: Recheck/Abnormal Lab/Rx Stated Complaint: Abnormal Labs Time Seen by Provider: 06/17/25 13:11 Source: patient Mode of arrival: ambulatory Limitations: no limitations History of Present Illness: 80-year-old female states she has been having increased weakness been going on for roughly a month. States she has had some slight dyspnea as well. States she had a blood drawn at [facility] and informed to come here for hyponatremia. She denies any pain currently denies any cough or fever. Related Data Home Medications ?Medication ?Instructions ?Recorded ?Confirmed multivitamin 1 tab PO BID 11/02/19 05/31/25 Dr Noel Probiotics 1 cap PO BID 07/09/21 05/31/25 [facility] Vitamins 1 cap PO DAILY 07/09/21 05/31/25 ascorbic acid (vitamin C) 500 mg 500 mg PO BID 05/26/23 05/31/25 capsule cholecalciferol (vitamin D3) 50 5,000 unit PO DAILY 05/26/23 05/31/25 mcg (2,000 unit) capsule magnesium 200 mg tablet 100 mg PO DAILY 05/26/23 04/21/25 omeprazole 40 mg capsule,delayed 40 mg PO DAILY 03/01/24 05/31/25 release omega-3 fatty acids-fish oil 684 1 cap PO DAILY 05/25/24 05/31/25 mg-1,200 mg capsule,delayed release tacrolimus 1 mg capsule, 2 mg PO BID 08/02/24 05/31/25 immediate-release levothyroxine 50 mcg tablet 50 mcg PO DAILY 12/01/24 05/31/25 potassium chloride 10 mEq 10 meq PO DAILY 04/01/25 05/31/25 capsule,extended release sacubitril 24 mg-valsartan 26 mg 1 tab PO BID 05/31/25 05/31/25 tablet (Entresto) spironolactone 50 mg tablet 50 mg PO DAILY 05/31/25 05/31/25 Previous Rx's ?Medication ?Instructions ?Recorded Sole supports #1 ea 05/25/24 metoprolol tartrate 25 mg tablet 25 mg PO BID #60 tabs 08/23/24 amlodipine 10 mg tablet 10 mg PO DAILY #90 tabs 09/14/24 memantine 10 mg tablet 10 mg PO BID #180 tabs 12/14/24 furosemide 40 mg tablet 40 mg PO BID 60 days #120 tabs 04/02/25 Eliquis 2.5 mg PO BID #60 tabs 04/05/25 amiodarone 200 mg tablet 200 mg PO DAILY #30 tabs 05/31/25 Allergies Allergy/AdvReac Type Severity Reaction Status Date / Time ezetimibe (From Zetia) Allergy ADR-Headach Verified 04/14/25 09:57 e Penicillins Allergy rash Verified 04/14/25 09:57 rivaroxaban (From Xarelto) Allergy ADR-Muscle Verified 04/14/25 09:57 Pain Nbmcjhm-VNN-BgG Reductase Allergy ALGY-Joint Verified 04/14/25 09:57 Inhibitor Pain Review of Systems Const: Reports: malaise Resp: Reports: dyspnea PFSH ED PFSH: Medical History Atrial fibrillation Atrial fibrillation CVA (cerebral vascular accident) LVH (left ventricular hypertrophy) Palpitations Hyperlipidemia PVC (premature ventricular contraction) Hypertension Surgical History Kidney transplant recipient Liver transplant recipient On tacrolimus, flecainide discontinued because of drug interaction Kidney transplant recipient Family History Mother Stroke Hypertension Family/Other Cancer Social History Smoking and tobacco/nicotine status: never used tobacco/nicotine Alcohol intake: never Substance/Drug Use: never Current occupational status: retired Physical Exam Const: COMMON NORMALS: patient oriented x3 HENMT: COMMON NORMALS: normocephalic and atraumatic HEAD & SCALP: normocephalic and atraumatic Eye: COMMON NORMALS: Equal, round and reactive pupils present and EOMs intact bilaterally PUPIL: Yes Equal, round and reactive pupils present Neck/C-Spine: COMMON NORMALS: full ROM and supple Chest: COMMONS NORMALS: normal inspection of the chest and normal palpation of entire chest wall Resp: COMMON NORMALS: normal respiratory effort, No retractions, No use of accessory muscles and clear to auscultation bilaterally AUSCULTATION: clear to auscultation bilaterally Cardio: COMMON NORMALS: regular rate, regular rhythm and No murmurs present (Cardio) RATE: regular rate RHYTHM: regular rhythm GI: COMMON NORMALS: Normal to inspection, nondistended, normoactive bowel sounds present, Soft to palpation, non-tender and no masses PALPATION: Yes Soft to palpation Extremity: COMMON NORMALS: normal to inspection and full ROM Neuro: COMMON NORMALS: patient oriented x3, moves all extremities and no focal motor deficits Psych: COMMON NORMALS: mental status grossly normal, Normal thought process present and cooperative THOUGHT PROCESS: Normal thought process present Skin: COMMON NORMALS: no rashes or lesions noted and no wounds GENERAL SKIN EXAM: no rashes or lesions noted Course Vital Signs: Vital signs: Vital Signs Temperature 97.8 F 06/17/25 12:48 Pulse Rate 58 L 06/17/25 12:48 Respiratory Rate 18 06/17/25 12:48 Blood Pressure 122/57 06/17/25 12:48 Pulse Oximetry 93 06/17/25 12:48 Oxygen Delivery Me thod Room Air 06/17/25 12:48 MDM - Recheck/Abnormal Lab/Rx Medical Decision Making Patient presents with generalized weakness likely from hyponatremia her sodium here was 122. She has no signs of infection white count here was normal. EKG here shows sinus bradycardia heart rate [address] elevation QRS 97 QTc 466. Patient has no signs of pneumonia on her x-ray. I did speak to hospitalist Dr. Araya will admit at this time for hyponatremia. I did go over her lab results along with imaging and informed her of the plan of admitting she understands agrees to plan Medical Records I reviewed the patient's medical records. Lab Data I reviewed the patient's lab results. 06/17/25 13:18 06/17/25 13:18 Radiology Impressions Chest X-Ray 06/17/25 13:13 Impression: 1. Cardiomegaly and atherosclerosis. 2. Small bilateral pleural effusions unchanged. Laboratory Results WBC 6.02 10^3/uL (3.29-11.43) 06/17/25 13:18 RBC 3.95 10^6/uL (3.85-5.65) 06/17/25 13:18 Hgb 11.60 g/dL (11.27-16.99) 06/17/25 13:18 Hct 34.5 % (36-47) L 06/17/25 13:18 MCV 87.3 fl (85-98) 06/17/25 13:18 MCH 29.4 pg (27-33) 06/17/25 13:18 MCHC 33.6 g/dL (30-55) 06/17/25 13:18 RDW 14.6 % (12.1-15.1) 06/17/25 13:18 Plt Count 206 10^3/cmm (157-399) 06/17/25 13:18 MPV 9.5 fL (7.4-10.4) 06/17/25 13:18 Neut % (Auto) 72.2 % 06/17/25 13:18 Lymph % (Auto) 18.1 % 06/17/25 13:18 Winkler % (Auto) 7.3 % 06/17/25 13:18 Eos % (Auto) 1.5 % 06/17/25 13:18 Baso % (Auto) 0.7 % 06/17/25 13:18 Neut # (Auto) 4.35 10^3/uL (1.8-7.7) 06/17/25 13:18 Lymph # (Auto) 1.1 10^3/uL (0.8-4.8) 06/17/25 13:18 Winkler # (Auto) 0.4 10^3/uL (0.2-0.9) 06/17/25 13:18 Eos # (Auto) 0.1 10^3/uL (0.0-0.8) 06/17/25 13:18 Baso # (Auto) 0.0 10^3/uL (0.0-0.1) 06/17/25 13:18 Nucleated RBC % (auto) 0 % 06/17/25 13:18 Nucleated RBCs # 0.0 /100WBC 06/17/25 13:18 Sodium 122 mmol/L (136-145) L 06/17/25 13:18 Potassium 4.8 mmol/L (3.5-5.1) 06/17/25 13:18 Chloride 86 mmol/L (98-107) L 06/17/25 13:18 Carbon Dioxide 20 mmol/L (22-29) L 06/17/25 13:18 Anion Gap 20.8 (5-19) H 06/17/25 13:18 BUN 15 mg/dL (8-23) 06/17/25 13:18 Creatinine 0.9 mg/dL (0.5-0.9) 06/17/25 13:18 GFR Calculation Not Reportable 06/17/25 13:18 Glucose 118 mg/dL (65-115) H 06/17/25 13:18 Calculated Osmolality 256 mOsm/kg (285-295) L 06/17/25 13:18 Calcium 9.6 mg/dL (8.5-10.5) 06/17/25 13:18 Magnesium 1.8 mg/dL (1.7-2.3) 06/17/25 13:18 Total Bilirubin 0.6 mg/dL (0.15-1.2) 06/17/25 13:18 AST 34 U/L (0-32) H 06/17/25 13:18 ALT 48 U/L (0-33) H 06/17/25 13:18 Alkaline Phosphatase 113 U/L (35-105) H 06/17/25 13:18 NT-Pro-B Natriuret Pep 2284 pg/mL (0-450) H 06/17/25 13:18 Total Protein 7.6 g/dL (6.6-8.7) 06/17/25 13:18 Albumin 4.5 g/dL (3.5-5.2) 06/17/25 13:18 Globulin 3.1 g/dL (1.3-4.6) 06/17/25 13:18 All radiology interpretation(s) finalized by discharge EKG Data EKG 1: I personally reviewed and interpreted this EKG as follows: EKG interpretation date: 06/17/25 EKG interpretation time: 09:43 Interpretation: sinus helen hr [address] elevation qrs 97 qtc 466 Discharge Plan Discharge Patient Disposition: Admitted As Inpatient Clinical Impression: Acute hyponatremia, Generalized weakness Condition: Stable Coding Level of Care Code ED Consumer Loan Specialist for Brenda Garrett
[2025-06-17 13:24] LABS: Hematocrit 34.5 % (36-47); Hemoglobin 11.60 g/dL (11.27-16.99); Mean Corpuscular HGB Conc 33.6 g/dL (30-55); Mean Corpuscular Hemoglobin 29.4 pg (27-33); Mean Corpuscular Volume 87.3 fl (85-98); Nucleated Red Blood Cells % 0 %; Platelet Count 206 10^3/cmm (157-399); Red Blood Count 3.95 10^6/uL (3.85-5.65); White Blood Count 6.02 10^3/uL (3.29-11.43)
[2025-06-17 13:50] LABS: Alanine Aminotransferase 48 U/L (0-33); Albumin Level 4.5 g/dL (3.5-5.2); Alkaline Phosphatase 113 U/L (35-105); Anion Gap 20.8 (5-19); Aspartate Amino Transferase 34 U/L (0-32); Blood Urea Nitrogen 15 mg/dL (8-23); Calcium 9.6 mg/dL (8.5-10.5); Carbon Dioxide 20 mmol/L (22-29); Chloride 86 mmol/L (98-107); Creatinine Clr Calc Pharmacy 46.5926; Globulin 3.1 g/dL (1.3-4.6); Glucose 118 mg/dL (65-115); Magnesium 1.8 mg/dL (1.7-2.3); NT Pro B Type Natriuretic Pept 2284 pg/mL (0-450); Osmolality Calculated 256 mOsm/kg (285-295); Potassium 4.8 mmol/L (3.5-5.1); Sodium 122 mmol/L (136-145); Total Protein 7.6 g/dL (6.6-8.7)
[2025-06-17 15:09] LABS: Thyroid Stimulating Hormone 6.62 uIU/mL (0.27-4.20)
--- NOTE | 2025-06-17 15:33 | PM.HP ---
Providers/Chief Complaint Admitting Physician: Boo Nicolas MD Primary Care Provider: Mason Mcdonough DO Chief Complaint: Abnormal Labs History of Present Illness Echo Wright is a 80 year old female with a past medical history of kidney transplant, liver transplant, defibrillation Eliquis, history of CVA, history of hypothyroidism, hypertension who presents [facility] due to weakness, fatigue, dizziness, hyponatremia. Patient reports she has been using Lasix 40 mg twice daily, that dose has not been decreased. She has been drinking at least 6 to 8 ounces, 6 times a day, denies any fall, no fevers, no chills, no nausea, no vomiting, no dizziness, no facial droop, no slurring of words, no focal weakness, no seizure-like episodes Review of Systems Const: Reports: fatigue and malaise; Denies: fever(s) or chills Card: Denies: chest pain Resp: Denies: dyspnea GI: Denies: abdominal pain : Denies: flank pain Neuro: Reports: weakness in extremities and dizziness; Denies: headache(s) Medications/Allergies Home Medications ?Medication ?Instructions ?Recorded ?Confirmed ?Last Taken ?Type multivitamin 1 tab PO BID 11/02/19 06/17/25 06/17/[address] Noel Probiotics 1 cap PO BID 07/09/21 06/17/25 06/17/25 History [facility] Vitamins 1 cap PO DAILY 07/09/21 06/17/25 06/17/25 History ascorbic acid (vitamin C) 500 mg 500 mg PO BID 05/26/23 06/17/25 06/17/25 History capsule cholecalciferol (vitamin D3) 50 5,000 unit PO DAILY 05/26/23 06/17/25 06/17/25 History mcg (2,000 unit) capsule magnesium 200 mg tablet 100 mg PO DAILY 05/26/23 06/17/25 06/17/25 History omeprazole 40 mg capsule,delayed 40 mg PO DAILY 03/01/24 06/17/25 06/17/25 History release Sole supports #1 ea 05/25/24 06/17/25 Unknown Rx omega-3 fatty acids-fish oil 684 1 cap PO DAILY 05/25/24 06/17/25 06/17/25 History mg-1,200 mg capsule,delayed release tacrolimus 1 mg capsule, 2 mg PO BID 08/02/24 06/17/25 06/17/25 History immediate-release metoprolol tartrate 25 mg tablet 25 mg PO BID #60 tabs 08/23/24 06/17/25 06/17/25 Rx amlodipine 10 mg tablet 10 mg PO DAILY #90 tabs 09/14/24 06/17/25 06/17/25 Rx levothyroxine 50 mcg tablet 50 mcg PO DAILY 12/01/24 06/17/25 06/17/25 History memantine 10 mg tablet 10 mg PO BID #180 tabs 12/14/24 06/17/25 06/17/25 Rx potassium chloride 10 mEq 10 meq PO DAILY 04/01/25 06/17/25 06/17/25 History capsule,extended release furosemide 40 mg tablet 40 mg PO BID 60 days #120 tabs 04/02/25 06/17/25 06/17/25 Rx amiodarone 200 mg tablet 200 mg PO DAILY #30 tabs 05/31/25 06/17/25 06/17/25 Rx sacubitril 24 mg-valsartan 26 mg 1 tab PO BID 05/31/25 06/17/25 06/17/25 History tablet (Entresto) spironolactone 50 mg tablet 50 mg PO DAILY 05/31/25 06/17/25 06/17/25 History apixaban 2.5 mg tablet (Eliquis) 2.5 mg PO BID 06/17/25 06/17/25 06/17/25 History melatonin 3 mg tablet 3 mg PO BEDTIME 06/17/25 06/17/25 06/16/25 History Allergies Allergy/AdvReac Type Severity Reaction Status Date / Time ezetimibe (From Zetia) Allergy ADR-Headach Verified 04/14/25 09:57 e Penicillins Allergy rash Verified 04/14/25 09:57 rivaroxaban (From Xarelto) Allergy ADR-Muscle Verified 04/14/25 09:57 Pain Fmcpqiz-JOC-McV Reductase Allergy ALGY-Joint Verified 04/14/25 09:57 Inhibitor Pain PFSH Acute PFSH: Medical History Atrial fibrillation Atrial fibrillation CVA (cerebral vascular accident) LVH (left ventricular hypertrophy) Palpitations Hyperlipidemia PVC (premature ventricular contraction) Hypertension Surgical History Kidney transplant recipient Liver transplant recipient On tacrolimus, flecainide discontinued because of drug interaction Kidney transplant recipient Family History Mother Stroke Hypertension Family/Other Cancer Social History Smoking and tobacco/nicotine status: never used tobacco/nicotine Alcohol intake: never Substance/Drug Use: never Current occupational status: retired Vitals/I&O/Wt Last Vital Signs Temp 97.8 F 06/17/25 12:48 Pulse 61 06/17/25 15:11 Resp 18 06/17/25 12:48 BP 138/63 06/17/25 15:11 Pulse Ox 90 06/17/25 15:11 O2 Del Method Room Air 06/17/25 15:11 06/17/25 06/17/25 06/17/25 06:59 14:59 22:59 Intake Total 1000 / 1000 Balance 1000 / 1000 Weight last 48 hrs Weight 69.4 kg Physical Exam Const: COMMON NORMALS: no acute distress and patient oriented x3 HENMT: COMMON NORMALS: normocephalic HEAD & SCALP: normocephalic Resp: COMMON NORMALS: normal respiratory effort, No retractions, No use of accessory muscles and clear to auscultation bilaterally AUSCULTATION: clear to auscultation bilaterally Cardio: COMMON NORMALS: regular rate, regular rhythm, S1 normal heart sound present and S2 normal heart sound present RATE: regular rate RHYTHM: regular rhythm HEART SOUNDS: S1 normal heart sound present and S2 normal heart sound present GI: COMMON NORMALS: Normal to inspection, nondistended, normoactive bowel sounds present, Soft to palpation, non-tender, No hepatosplenomegaly present, no masses and no bruits PALPATION: Yes Soft to palpation and Yes No hepatosplenomegaly present Extremity: COMMON NORMALS: no calf tenderness and no pedal edema Neuro: COMMON NORMALS: patient oriented x3, CN's II-XII intact bilaterally and moves all extremities Psych: COMMON NORMALS: mental status grossly normal Data 06/17/25 13:18 06/17/25 13:18 A&P Assessment and plan 1. Diastolic heart failure secondary to hypertension: 2. Pulmonary hypertension: 3. Atrial fibrillation: 4. Acute hyponatremia: 5. CVA (cerebral vascular accident): 6. Dizziness: 7. Generalized weakness: Plan: Hyponatremia - Urine sodium, serum osmolality - TSH - Monitor serum sodium every 6 hours - Fluid restrictions of 1000 cc - Monitor closely Dizziness - CT head, UA, History of atrial fibrillation continue Eliquis Diastolic CHF continue Lasix History of liver transplant, history of transplant - Continue tacrolimus - Check tacrolimus levels Hypothyroidism, levothyroxine Full code Eliquis for DVT prophylaxis PDMP PDMP Reviewed: Not Reviewed Attestations Medical Necessity Statement*: Patient requires hospitalization for weakness, dizziness, hyponatremia, outpatient with observation Diagnoses Diastolic heart failure secondary to hypertension I11.0; I50.30 Pulmonary hypertension I27.20 Atrial fibrillation I48.91 Acute hyponatremia E87.1 CVA (cerebral vascular accident) I63.9 Dizziness R42 Generalized weakness R53.1
[2025-06-17] MEDS: FUROsemide 10 mg/mL SDV 10mL 60 MG IVP (15:44)
[2025-06-17 15:47] LABS: Glucose Urine UA Negative (Normal); Nitrate Urine Negative (Negative); Specific Gravity, Urine 1.005 (1.005-1.030)
[2025-06-17 15:50] LABS: Add Urine Microscopic? YES
[2025-06-17 16:00] LABS: Lactic Sepsis W/Reflex 1.3 mmol/L (0.5-2.2)
[2025-06-17 16:06] LABS: Urine Random Sodium 68 mmol/L
[2025-06-17 16:08] LABS: Procalcitonin 0.06 ng/mL (0-0.5)
--- NOTE | 2025-06-17 19:52 | CTR_ITS ---
PROCEDURE INFORMATION: Exam: CT Head Without Contrast Exam date and time: 06/17/2025 9:17 PM Age: 80 years old Clinical indication: C/O dizziness; Additional info: Dizzyness TECHNIQUE: Imaging protocol: Computed tomography of the head without contrast. Radiation optimization: All CT scans at this facility use at least one of these dose optimization techniques: automated exposure control; mA and/or kV adjustment per patient size (includes targeted exams where dose is matched to clinical indication); or iterative reconstruction. COMPARISON: MR head wo con* [id number] 05/25/2024 12:14 PM RADIATION DOSE METRICS: Total DLP (mGy-cm): 1002.18 FINDINGS: Brain: No hemorrhage. Diffuse periventricular white matter disease indicating small vessel disease changes. No mass effect. No collections. Age related volume loss. Old lacunar infarcts left basal ganglia. Cerebral ventricles: No ventriculomegaly. Paranasal sinuses: No significant air-fluid levels noted in the visualized sinuses. Mastoid air cells: Mastoid air cells are aerated with no effusions. Bones: No acute osseous abnormality. Soft tissues: Unremarkable. CT/CT head wo con* [id number] IMPRESSION: No acute intracranial abnormality.
[2025-06-17 20:50] LABS: Estmated Average Glucose 111; Hemoglobin A1C 5.5 % (4.0-6.0)
[2025-06-17 21:29] LABS: Cholesterol 227 mg/dL (0-200); HDL Cholesterol 88 mg/dL (60-100); Lipase 16 U/L (13-60); Sodium 125 mmol/L (136-145); Triglycerides 49 mg/dL (0-150)
[2025-06-17] MEDS: APIXABAN 2.5 MG TABLET PO (21:43)
[2025-06-17] MEDS: MELATONIN 3 MG TABLET PO (21:43)
[2025-06-17] MEDS: pantoprazole 40 mg SDV IVP (21:44)
[2025-06-18] VITALS (10 sets, daily range): BP systolic 98–148; BP diastolic 49–79; PULSE 46–83; RESP 16–19; TEMP 36.6–36.8; O2SAT 91–97
[2025-06-18 02:21] LABS: Sodium 121 mmol/L (136-145)
[2025-06-18 03:50] LABS: Hematocrit 28.6 % (36-47); Hemoglobin 9.70 g/dL (11.27-16.99); Mean Corpuscular HGB Conc 33.9 g/dL (30-55); Mean Corpuscular Hemoglobin 29.6 pg (27-33); Mean Corpuscular Volume 87.2 fl (85-98); Nucleated Red Blood Cells % 0 %; Platelet Count 165 10^3/cmm (157-399); Red Blood Count 3.28 10^6/uL (3.85-5.65); White Blood Count 4.21 10^3/uL (3.29-11.43)
[2025-06-18 04:18] LABS: NT Pro B Type Natriuretic Pept 2206 pg/mL (0-450)
[2025-06-18 04:21] LABS: Alkaline Phosphatase 94 U/L (35-105); Aspartate Amino Transferase 24 U/L (0-32); Potassium 4.7 mmol/L (3.5-5.1)
[2025-06-18 04:43] LABS: Alanine Aminotransferase 37 U/L (0-33); Albumin Level 3.6 g/dL (3.5-5.2); Anion Gap 18.7 (5-19); Blood Urea Nitrogen 14 mg/dL (8-23); Calcium 8.6 mg/dL (8.5-10.5); Carbon Dioxide 21 mmol/L (22-29); Chloride 89 mmol/L (98-107); Creatinine Clr Calc Pharmacy 52.3522; Globulin 2.0 g/dL (1.3-4.6); Glucose 87 mg/dL (65-115); Osmolality Calculated 258 mOsm/kg (285-295); Sodium 124 mmol/L (136-145); Total Protein 5.6 g/dL (6.6-8.7)
[2025-06-18] MEDS: APIXABAN 2.5 MG TABLET PO ×2 (06:11→15:53)
[2025-06-18 10:13] LABS: Sodium 122 mmol/L (136-145)
--- OUTSIDE RECORDS SUMMARY | 2025-06-18 11:07 | XMS_ITS | Encounter Summary ---
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
--- OUTSIDE RECORDS SUMMARY | 2025-06-18 11:07 | XMS_ITS | Encounter Summary ---
Author Organization [facility] Address [address] [place] [address] Care Team Providers Care Microbiology Soil Scientist Name Role Phone Smith Martínez DO Primary Care Provide r Encounter Details Date Type Department Care Team (Latest Contact Info) Description 03/03/2006 Outpatient [facility] [address] [place] [address] Amauri Hendrix MD NO ADDRESS ON FILE Other Screening Mammogram (Primary Dx) Social History Tobacco Use Types Packs/Day Years Used Date Smoking Tobacco: Never Assessed Comments Unknown Sex and Gender Information Value Date Recorded Sex Assigned at Not on file Legal Sex Female 6:13 AM ADAPTIVE PHYSICAL EDUCATOR Gender Identity Not on file Sexual Orientation Not on file documented as of this encounter Plan of Treatment Not on file documented as of this encounter Visit Diagnoses Diagnosis Other screening mammogram- Primary documented in this encounter Care Teams Microbiology Soil Scientist Relationship Specialty Start Date End Date Smith Martínez DO [address] [place] [address] PCP - General Internal Medicine 08/06/18 documented as of this encounter
--- OUTSIDE RECORDS SUMMARY | 2025-06-18 11:07 | XMS_ITS | Encounter Summary ---
Author Organization [facility] Address [address] [place] [address] Care Team Providers Care Systems Trainer Name Role Phone Smith Martínez DO Primary Care Provide r Encounter Details Date Type Department Care Team (Late st Contact Info) Description 03/03/2006 Outpatient [facility] [address] [facility] [address] [place] [address] Renea Gruber MD NO ADDRESS ON FILE Other Screening Mammogram (Primary Dx); Chronic Hepatitis C without Mention of Hepatic Coma (CMS/HCC); Vaccine for viral hepatitis Social History Tobacco Use Types Packs/Day Years Used Date Smoking Tobacco: Never Assessed Comments Unknown Sex and Gender Information Value Date Recorded Sex Assigned at Not on file Legal Sex Female 6:13 AM COPYRIGHT MANAGER Gender Identity Not on file Sexual [...] hepatitis documented in this encounter Care Teams Systems Trainer Relationship Specialty Start Date End Date Smith Martínez DO [address] [facility] [address] [place] [address] PCP - General Internal Medicine 08/06/18 documented as of this encounter
--- OUTSIDE RECORDS SUMMARY | 2025-06-18 11:07 | XMS_ITS | Encounter Summary ---
Author Organization [facility] Address [address] [place] [address] Care Team Providers Care Drainman Name Role Phone Smith Martínez DO Primary Care Provide r Encounter Details Date Type Department Care Team (Latest Contact Info) Description 09/24/2005 Outpatient [facility] Gastroenterology- [address] [place] [address] Sloan Vickers MD [address] [place] [address] [address] [place] [address] ABNORMAL FINDINGS-GI TRACT (Primary Dx); ESOPH VARICES W/O BLEED (CMS/HCC); Acute gastritis; DUODENITIS W/O HEMORRHAGE Social History Tobacco Use Types Packs/Day Years Used Date Smoking Tobacco: Never Assessed Comments Unknown Sex and Gender Information Value Date Recorded Sex Assigned at Not on file Legal Sex Female 6:13 AM NECK BAND SETTER Gender Identity Not on file Sexual Orientation [...] hemorrhage documented in this encounter Care Teams Drainman Relationship Specialty Start Date End Date Smith Martínez DO [address] [place] [address] PCP - General Internal Medicine 08/06/18 documented as of this encounter
--- OUTSIDE RECORDS SUMMARY | 2025-06-18 11:07 | XMS_ITS | Encounter Summary ---
Author Organization [facility] Address [address] [place] [address] Care Team Providers Care Sales Route Driver Name Role Phone Smith Martínez DO Primary Care Provide r Encounter Details Date Type Department Care Team (Latest Contact Info) Description 12/20/2005 Outpatient [facility] Gastroenterology[address] [place] [address] Sloan Vickers MD [facility] [address] [place] [address] Esophageal Varices without Mention of Bleeding (CMS/HCC) (Primary Dx) Social History Tobacco Use Types Packs/Day Years Used Date Smoking Tobacco: Never Assessed Comments Unknown Sex and Gender Information Value Date Recorded Sex Assigned at Not on file Legal Sex Female 6:13 AM LEGAL WORD PROCESSOR Gender Identity Not on file Sexual Orientation Not on file documented as of this encounter Plan of Treatment Not on file documented as of this encounter Visit Diagnoses Diagnosis Esophageal varices without mention of bleeding- Primary documented in this encounter Care Teams Sales Route Driver Relationship Specialty Start Date End Date Smith Martínez DO [address] [place] [address] PCP - General Internal Medicine 08/06/18 documented as of this encounter
--- OUTSIDE RECORDS SUMMARY | 2025-06-18 11:07 | XMS_ITS | Encounter Summary ---
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
--- OUTSIDE RECORDS SUMMARY | 2025-06-18 11:07 | XMS_ITS | Encounter Summary ---
Author Organization [facility] Address [address] [place] [address] Care Team Providers Care Bone Density Technician Name Role Phone Smith Martínez Primary [...] on file Legal Sex Female 6:13 AM DESIGN SPECIALIST Gender Identity Not on file Sexual Orientation Not on file documented as of this encounter Plan of Treatment Not on file documented as of this encounter Procedures Procedure Name Priority Date/Time Associated Diagnosis Comments US GUIDED ASPIRATION Routine 07/20/2008 9:10 AM DESIGN SPECIALIST PT AND APTT Stat 07/20/2008 8:22 AM DESIGN SPECIALIST PLATELET COUNT Stat 07/20/2008 8:22 AM DESIGN SPECIALIST documented in this encounter Results * US GUIDED ASPIRATION (07/20/2008 9:10 AM DESIGN SPECIALIST) Anatomical Region Laterality Modality Other 07/20/2008 9:10 AM DESIGN SPECIALIST Narrative 07/20/2008 3:53 PM DESIGN SPECIALIST ULTRASOUND GUIDED PARACENTESIS: Date: 07/20/2008 Brief [...] the procedure well. - Dictated By: Jakub Whiteisde Electronically Signed By: Blaise Correia MD Date Signed: 07/20/08 [facility] Procedure Note Blaise Correia - 07/20/2008 [...] (ABNORMAL) PT AND APTT (07/20/2008 8:22 AM DESIGN SPECIALIST) PROTIME 19.5(H) 12.8 - 15.[address] [facility] Comment:As of 2007 not e change in normal range. PTT 35.4 22.5 - 36.[address] [facility] Comment: Therapeutic Range: Hi-level PE/DVT heparin protocol 80.1 -95.0 sec Lo-level PE/DVT heparin protocol 67.1 - 80.0 sec Cardiac Heparin Protocol 67.1 - 85.0 sec Neuro Heparin Protocol 67.1 - 80.0 sec As of 11/12/2007 note change in APTT Normal Range. INR 1.5 [facility] Comment: Expected Values for [...] from the pharmacy Lucy Rangel Pharm D. [phone] Blood specimen (specimen) 07/20/2008 8:22 AM DESIGN SPECIALIST 07/20/2008 8:22 AM DESIGN SPECIALIST us Christiano Ramírez MD HEMATOLOGY ORDERABLES Edited INTERFACE SYSTEM Refer to clinic/hospital department [facility] CLIA# [id number] [address] [place] [address] * (ABNORMAL) PLATELET COUNT (07/20/2008 8:22 AM DESIGN SPECIALIST) PLATELETS 32(L) 140 - 440 K/ul [facility] PLATELET EST. Decreased( A) Normal [facility] Blood specimen (specimen) 07/20/2008 8:22 AM DESIGN SPECIALIST 07/20/2008 8:22 AM DESIGN SPECIALIST us Christiano Ramírez MD HEMATOLOGY ORDERABLES Edited INTERFACE SYSTEM Refer to clinic/hospital department [facility] CLIA# [id number] [facility] [place] [address] documented in this encounter Visit Diagnoses Diagnosis Other ascites documented in this encounter Care Teams Bone Density Technician Relationship Specialty Start Date End Date Smith Martínez DO [address] [address] PCP - General Internal Medicine 08/06/18 documented as of this encounter
--- OUTSIDE RECORDS SUMMARY | 2025-06-18 11:07 | XMS_ITS | Encounter Summary ---
Author Organization [facility] Address [address] [place] [address] Care Team Providers Care Instructor Apparel Manufacture Name Role Phone Smith Martínez Primary Care [...] on file Legal Sex Female 6:13 AM HEARING THERAPY TEACHER Gender Identity Not on file Sexual Orientation Not on file documented as of this encounter Plan of Treatment Not on file documented as of this encounter Procedures Procedure Name Priority Date/Time Associated Diagnosis Comments US GUIDED ASPIRATION Routine 07/05/2008 1:23 PM HEARING THERAPY TEACHER PLATELET COUNT Stat 07/05/2008 12:27 PM HEARING THERAPY TEACHER PT AND APTT Stat 07/05/2008 12:22 PM HEARING THERAPY TEACHER documented in this encounter Results * US GUIDED ASPIRATION (07/05/2008 1:23 PM HEARING THERAPY TEACHER) Anatomical Region Laterality Modality Other 07/05/2008 1:23 PM HEARING THERAPY TEACHER Narrative 07/09/2008 5:54 PM HEARING THERAPY TEACHER Ultrasound Guided Paracentesis: Date: 07/05/2008. Brief History: [...] * (ABNORMAL) PLATELET COUNT (07/05/2008 12:27 PM HEARING THERAPY TEACHER) PLATELETS 65(L) 140 - 440 K/ul [facility] Blood specimen (specimen) 07/05/2008 12:27 PM HEARING THERAPY TEACHER 07/05/2008 12:34 PM HEARING THERAPY TEACHER Christiano Ramírez MD HEMATOLOGY ORDERABLES Final Res ult INTERFACE SYSTEM Refer to clinic/hospital department [facility] CLIA# [id number] [address] [place] [address] * (ABNORMAL) PT AND APTT (07/05/2008 12:22 PM HEARING THERAPY TEACHER) PROTIME 18.0(H) 12.8 - 15.8 Secs [facility] Comment:As of 2007 not e change in normal range. PTT 30.2 22.5 - 36.5 Secs [facility] Comment: Therapeutic Range: Hi-level PE/DVT heparin protocol 80.1 -95.0 sec Lo-level PE/DVT heparin protocol 67.1 - 80.0 sec Cardiac Heparin Protocol 67.1 - 85.0 sec Neuro Heparin Protocol 67.1 - 80.0 sec As of 11/12/2007 note change in APTT Normal Range. INR 1.3 [facility] Comment: Expected Values for INR: DVT/PE Goal INR 2.5; range 2.0 - 3.0 Valve Replacement Tissue Goal INR 2.5; range 2.0 - 3.0 Mechanical Goal INR 3.0; range 2.5 - 3.5 POST-IL Goal INR 2.5; range 2.0 - 3.0 or Goal 3.0; range 2.5 - 3.5 Atrial Fibrillation Goal INR 2.5; range 2.0 - 3.0 Ischemic Stroke Goal INR 2.5; range 2.0 - 3.0 For additional information see Guidelines for Anticoagulation available from the pharmacy Lucy Rangel, James D. [phone] Blood specimen (specimen) 07/05/2008 12:22 PM HEARING THERAPY TEACHER 07/05/2008 12:34 PM HEARING THERAPY TEACHER us Christiano Ramírez MD HEMATOLOGY ORDERABLES Edited INTERFACE SYSTEM Refer to clinic/hospital department [facility] CLIA# [id number] [address] [place] [address] documented in this encounter Visit Diagnoses Diagnosis Other ascites documented in this encounter Care Teams Instructor Apparel Manufacture Relationship Specialty Start Date End Date Smith Martínez DO [address] [address] PCP - General Internal Medicine 08/06/18 documented as of this encounter
--- OUTSIDE RECORDS SUMMARY | 2025-06-18 11:07 | XMS_ITS | Encounter Summary ---
Author Organization [facility] Address [address] [place] [address] Care Team Providers Care Conduit Helper Name Role Phone Smith Martínez DO Primary Care Provide r Encounter Details Date Type Department Care Team (Latest Contact Info) Description 07/15/2005 Outpatient [facility] Gastroenterology[address] [place] [address] Sloan Vickers MD [address] [place] [address] [address] [place] [address] CIRRHOSIS OF LIVER NOS (CMS/HCC) (Primary Dx); VIR HEP NEC W/O COMA W HEP C CHRON (CMS/HCC) Social History Tobacco Use Types Packs/Day Years Used Date Smoking Tobacco: Never Assessed Comments Unknown Sex and Gender Information Value Date Recorded Sex Assigned at Not on file Legal Sex Female 6:13 AM VIDEO SYSTEMS ENGINEER Gender Identity Not on file [...] coma documented in this encounter Care Teams Conduit Helper Relationship Specialty Start Date End Date Smith Martínez DO [address] [place] [address] PCP - General Internal Medicine 08/06/18 documented as of this encounter
--- OUTSIDE RECORDS SUMMARY | 2025-06-18 11:07 | XMS_ITS | Encounter Summary ---
Author Organization [facility] Address [address] [place] [address] Care Team Providers Care Ice Carver Name Role Phone Smith Martínez DO Primary Care Provide r Encounter Details Date Type Department Care Team (Latest Contact Info) Description 07/11/2008 Outpatient [facility] Christiano Ramírez MD NO ADDRESS ON FILE Kylee Mcclendon MD [address] [place] [address] Cirrhosis of Liver without Mention [...] on file Legal Sex Female 6:13 AM FUN HOUSE OPERATOR Gender Identity Not on file Sexual [...] purpura documented in this encounter Care Teams Ice Carver Relationship Specialty Start Date End Date Smith Martínez DO [address] [place] [address] PCP - General Internal Medicine 08/06/18 documented as of this encounter
--- OUTSIDE RECORDS SUMMARY | 2025-06-18 11:07 | XMS_ITS | Encounter Summary ---
Author Organization [facility] Address [address] [place] [address] Care Team Providers Care Line Builder Name Role Phone Smith Martínez Primary Care [...] on file Legal Sex Female 6:13 AM SERVER ADMINISTRATOR Gender Identity Not on file Sexual Orientation Not on file documented as of this encounter Plan of Treatment Not on file documented as of this encounter Procedures Procedure Name Priority Date/Time Associated Diagnosis Comments CELL COUNT WITH DIFFERENTIAL, BODY FLUID Routine 08/16/2008 2:01 PM SERVER ADMINISTRATOR XR CHEST PA OR AP 1 VW Routine 08/16/2008 1:43 PM SERVER ADMINISTRATOR US GUIDED ASPIRATION Routine 08/16/2008 12:59 PM SERVER ADMINISTRATOR PATHOLOGY Routine 08/16/2008 12:10 PM SERVER ADMINISTRATOR US GUIDED ASPIRATION Routine 08/16/2008 12:07 PM SERVER ADMINISTRATOR PT AND APTT Stat 08/16/2008 10:36 AM SERVER ADMINISTRATOR PLATELET COUNT Stat 08/16/2008 10:36 AM SERVER ADMINISTRATOR PATHOLOGY Routine 08/16/2008 6:30 AM SERVER ADMINISTRATOR documented in this encounter Results * CELL COUNT WITH DIFFERENTIAL, BODY FLUID (08/16/2008 2:01 PM SERVER ADMINISTRATOR) MACROPHAGE, FLD 39 % [facility] SOURCE FLUID Pleural [facility] LYMPHOCYTE, FLD 25 % [facility] WBC, FLD 170 /mm3 [facility] RBC, FLD 385 /mm3 [facility] APPEARANCE, BODY FLUID Slightly Cloudy [facility] MESOTHELIAL, FLD 36 % [facility] COLOR, FLD Yellow [facility] 08/16/2008 2:01 PM SERVER ADMINISTRATOR 08/16/2008 2:01 PM SERVER ADMINISTRATOR Christiano Ramírez MD BODY FLUIDS AND STOOLS Edited INTERFACE SYSTEM Refer to clinic/hospital department [facility] CLIA# [id number] [address] [place] [address] * XR CHEST PA OR AP (08/16/2008 1:43 PM SERVER ADMINISTRATOR) Anatomical Region Laterality Modality Chest Other 08/16/2008 1:43 PM SERVER ADMINISTRATOR Narrative 08/16/2008 3:25 PM SERVER ADMINISTRATOR A single view of the chest is [...] * US GUIDED ASPIRATION (08/16/2008 12:59 PM SERVER ADMINISTRATOR) Anatomical Region Laterality Modality Other 08/16/2008 12:5 9 PM SERVER ADMINISTRATOR Narrative 08/16/2008 1:16 PM SERVER ADMINISTRATOR ULTRASOUND GUIDED PARACENTESIS: Date: 08/16/2008 Brief History: [...] the insertion of a 7 cm 18-gauge [employer] centesis catheter, through which approximately 5,000 ML [...] By: Blaise Correia MD Date Signed: 08/22/08 [facility] Procedure Note Provider, Historical - 08/22/2008 [...] Final Result * PATHOLOGY (08/16/2008 12:10 PM SERVER ADMINISTRATOR) PATHOLOGY/CYT OLOGY REPORT [facility] Anatomic Pathology Dept [address] [place] [address] Patient: UMM WRIGHT Accn No: [id number] Collected: 08/16/2008 12:10:00 PM SURGICAL PATHOLOGY FINAL [...] DLS/WLS INTERFACE SYSTEM 08/16/2008 12:1 0 PM SERVER ADMINISTRATOR us Christiano Ramírez MD PATHOLOGY/CYTOLOGY ORDERABLES F inal Result INTERFACE SYSTEM Refer to clinic/hospital department * US GUIDED ASPIRATION (08/16/2008 12:07 PM SERVER ADMINISTRATOR) Anatomical Region Laterality Modality Other 08/16/2008 12:0 7 PM SERVER ADMINISTRATOR Narrative 08/22/2008 8:42 AM SERVER ADMINISTRATOR ULTRASOUND GUIDED PARACENTESIS: Date: 08/16/2008 Brief History: [...] (ABNORMAL) PT AND APTT (08/16/2008 10:36 AM SERVER ADMINISTRATOR) INR 1.4 [facility] Comment: Expected Values for INR: [...] Anticoagulation available from the pharmacy James Matos. [phone] PTT 35.4 22.5 - 36.5 Secs [facility] Comment: Therapeutic Range: Hi-level PE/DVT heparin protocol 80.1 -95.0 sec Lo-level PE/DVT heparin protocol 67.1 - 80.0 sec Cardiac Heparin Protocol 67.1 - 85.0 sec Neuro Heparin Protocol 67.1 - 80.0 sec As of 11/12/2007 note change in APTT Normal Range. PROTIME 18.3(H) 12.8 - 15.8 Secs [facility] Comment:As of 2007 not e change in normal range. Blood specimen (specimen) 08/16/2008 10:36 AM SERVER ADMINISTRATOR 08/16/2008 10:39 AM SERVER ADMINISTRATOR Christiano Ramírez MD HEMATOLOGY ORDERABLES Edited INTERFACE SYSTEM Refer to clinic/hospital department [facility] CLIA# [id number] [address] [place] [address] * (ABNORMAL) PLATELET COUNT (08/16/2008 10:36 AM SERVER ADMINISTRATOR) PLATELETS 58(L) 140 - 440 K/ul [facility] Blood specimen (specimen) 08/16/2008 10:36 AM SERVER ADMINISTRATOR 08/16/2008 10:39 AM SERVER ADMINISTRATOR Christiano Ramírez MD HEMATOLOGY ORDERABLES Final Res ult Performing Organization Address [facility] de Phone Number INTERFACE SYSTEM Refer to clinic/hospital department [facility] CLIA# [id number] [address] [place] [address] * PATHOLOGY (08/16/2008 6:30 AM SERVER ADMINISTRATOR) PATHOLOGY/CYT OLOGY REPORT [facility] Anatomic Pathology Dept [address] [place] [address] Patient: UMM WRIGHT Accn No: [id number] Collected: 08/16/2008 6:30:00 AM CYTOLOGY NON-GYNECOLOGIC FINAL [...] cells present. INTERFACE SYSTEM 08/16/2008 6:30 AM SERVER ADMINISTRATOR Christiano Ramírez MD PATHOLOGY/CYTOLOGY ORDERABLES F inal Result Performing Organization Address City/[facility] Co de Phone Number INTERFACE SYSTEM Refer to clinic/hospital department documented in this encounter Visit Diagnoses Diagnosis Other ascites documented in this encounter Care Teams Line Builder Relationship Specialty Start Date End Date Smith Martínez DO [address] [address] PCP - General Internal Medicine 08/06/18 documented as of this encounter
--- OUTSIDE RECORDS SUMMARY | 2025-06-18 11:07 | XMS_ITS | Encounter Summary ---
Author Organization [facility] Address [address] [place] [address] Care Team Providers Care Wind Instrument Repairer Name Role Phone Smith Martínez DO Primary Care Provide r Encounter Details Date Type Department Care Team (Latest Contact Info) Description 04/16/2006 Outpatient Historical [facility] Endoscopy [address] [place] [address] Sloan Vickers MD [facility] [address] [place] [address] Portal Hypertension (CMS/HCC) (Primary Dx) Social History Tobacco Use Types Packs/Day Years Used Date Smoking Tobacco: Never Assessed Comments Unknown Sex and Gender Information Value Date Recorded Sex Assigned at Not on file Legal Sex Female 6:13 AM WELL CONTROL INSTRUCTOR Gender Identity Not on file Sexual Orientation Not on file documented as of this encounter Plan of Treatment Not on file documented as of this encounter Visit Diagnoses Diagnosis Portal hypertension (CMS/HCC)- Primary Portal hypertension documented in this encounter Care Teams Wind Instrument Repairer Relationship Specialty Start Date End Date Smith Martínez DO [address] [place] [address] PCP - General Internal Medicine 08/06/18 documented as of this encounter
--- OUTSIDE RECORDS SUMMARY | 2025-06-18 11:07 | XMS_ITS | Encounter Summary ---
Author Organization [facility] Address [address] [place] [address] Care Team Providers Care Cat And Dog Bather Name Role Phone Smith Martínez Primary Care [...] on file Legal Sex Female 6:13 AM SPA TECHNICIAN Gender Identity Not on file Sexual Orientation Not on file documented as of this encounter Plan of Treatment Not on file documented as of this encounter Procedures Procedure Name Priority Date/Time Associated Diagnosis Comments US GUIDED ASPIRATION Routine 08/02/2008 11:02 AM SPA TECHNICIAN PT AND APTT Stat 08/02/2008 10:26 AM SPA TECHNICIAN PLATELET COUNT Stat 08/02/2008 10:26 AM SPA TECHNICIAN documented in this encounter Results * US GUIDED ASPIRATION (08/02/2008 11:02 AM SPA TECHNICIAN) Anatomical Region Laterality Modality Other 08/02/2008 11:0 2 AM SPA TECHNICIAN Narrative 08/03/2008 7:43 AM SPA TECHNICIAN Ultrasound Guided Paracentesis: Date: 08/02/2008 Brief History: [...] (ABNORMAL) PT AND APTT (08/02/2008 10:26 AM SPA TECHNICIAN) PROTIME 19.0(H) 12.8 - 15.[address] [facility] Comment:As of 2007 not e change in normal range. PTT 36.5 22.5 - 36.[address] [facility] Comment: Therapeutic Range: Hi-level PE/DVT heparin protocol 80.1 -95.0 sec Lo-level PE/DVT heparin protocol 67.1 - 80.0 sec Cardiac Heparin Protocol 67.1 - 85.0 sec Neuro Heparin Protocol 67.1 - 80.0 sec As of 11/12/2007 note change in APTT Normal Range. INR 1.4 [facility] Comment: Expected Values [...] Anticoagulation available from the pharmacy James Matos [phone] Blood specimen (specimen) 08/02/2008 10:26 AM SPA TECHNICIAN 08/02/2008 10:26 AM SPA TECHNICIAN us Christiano Ramírez MD HEMATOLOGY ORDERABLES Edited INTERFACE SYSTEM Refer to clinic/hospital department [facility] CLIA# [id number] [address] [place] [address] * (ABNORMAL) PLATELET COUNT (08/02/2008 10:26 AM SPA TECHNICIAN) PLATELET EST. Decreased( A) Normal [facility] PLATELETS 35(L) 140 - 440 K/ul [facility] Blood specimen (specimen) 08/02/2008 10:26 AM SPA TECHNICIAN 08/02/2008 10:26 AM SPA TECHNICIAN us Christiano Ramírez MD HEMATOLOGY ORDERABLES Edited INTERFACE SYSTEM Refer to clinic/hospital department [facility] CLIA# [id number] [address] [place] [address] documented in this encounter Visit Diagnoses Diagnosis Other ascites documented in this encounter Care Teams Cat And Dog Bather Relationship Specialty Start Date End Date Smith Martínez DO [address] [address] PCP - General Internal Medicine 08/06/18 documented as of this encounter
--- OUTSIDE RECORDS SUMMARY | 2025-06-18 11:07 | XMS_ITS | Encounter Summary ---
Author Organization [facility] Address [address] [place] [address] Care Team Providers Care Cardiology Manager Name Role Phone Smith Martínez DO Primary Care Provide r Encounter Details Date Type Department Care Team (Latest Contact Info) Description 12/20/2005 Outpatient Historical [facility] Endoscopy [address] [place] [address] Sloan Vickers MD [facility] [address] [place] [address] Other Follow-Up Examination (Primary Dx) Social History Tobacco Use Types Packs/Day Years Used Date Smoking Tobacco: Never Assessed Comments Unknown Sex and Gender Information Value Date Recorded Sex Assigned at Not on file Legal Sex Female 6:13 AM MACHINE GROUP LEADER Gender Identity Not on file Sexual Orientation Not on file documented as of this encounter Plan of Treatment Not on file documented as of this encounter Visit Diagnoses Diagnosis Other follow-up examination(V67.59)- Primary Other follow-up examination documented in this encounter Care Teams Cardiology Manager Relationship Specialty Start Date End Date Smith Martínez DO [address] [facility] 1 [place] [address] PCP - General Internal Medicine 08/06/18 documented as of this encounter
--- OUTSIDE RECORDS SUMMARY | 2025-06-18 11:07 | XMS_ITS | Encounter Summary ---
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); Chronic Hepatitis C without Mention of Hepatic Coma (CMS/HCC); Vaccine for viral hepatitis Social History Tobacco Use Types Packs/Day Years Used Date Smoking Tobacco: Never Assessed Comments Unknown Sex and Gender Information Value Date Recorded Sex Assigned at Not on file 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
--- OUTSIDE RECORDS SUMMARY | 2025-06-18 11:07 | XMS_ITS | Encounter Summary ---
Author Organization [facility] Address [address] [place] [address] Care Team Providers Care Weave Room Supervisor Name Role Phone Smith Martínez Primary Care [...] file Legal Sex Female 6:13 AM HEALTH SOCIAL WORK PROFESSOR Gender Identity Not on file Sexual Orientation Not on file documented as of this encounter Plan of Treatment Not on file documented as of this encounter Procedures Procedure Name Priority Date/Time Associated Diagnosis Comments US GUIDED ASPIRATION Routine 07/26/2008 8:48 AM HEALTH SOCIAL WORK PROFESSOR PT AND APTT Stat 07/26/2008 8:00 AM HEALTH SOCIAL WORK PROFESSOR PLATELET COUNT Stat 07/26/2008 8:00 AM HEALTH SOCIAL WORK PROFESSOR documented in this encounter Results * US GUIDED ASPIRATION (07/26/2008 8:48 AM HEALTH SOCIAL WORK PROFESSOR) Anatomical Region Laterality Modality Other 07/26/2008 8:48 AM HEALTH SOCIAL WORK PROFESSOR Narrative 07/26/2008 1:06 PM HEALTH SOCIAL WORK PROFESSOR ULTRASOUND GUIDED PARACENTESIS: Date: 07/26/2008 Brief History: [...] By: Kylee Mcclendon M.D. Date Signed: 07/26/08 [facility] Procedure Note Kylee Mcclendon MD - 07/26/2008 [...] (ABNORMAL) PT AND APTT (07/26/2008 8:00 AM HEALTH SOCIAL WORK PROFESSOR) PROTIME 19.4(H) 12.8 - 15.8 Secs [facility] Comment:ansiAs of 08/21/2007 note change in normal range. INR 1.5 [facility] Comment: Expected Values for INR: [...] Anticoagulation available from the pharmacy James Matos [phone] PTT 37.1(H) 22.5 - 36.5 Secs [facility] Comment: Therapeutic Range: Hi-level PE/DVT heparin protocol 80.1 -95.0 sec Lo-level PE/DVT heparin protocol 67.1 - 80.0 sec Cardiac Heparin Protocol 67.1 - 85.0 sec Neuro Heparin Protocol 67.1 - 80.0 sec As of 11/12/2007 note change in APTT Normal Range. Blood specimen (specimen) 07/26/2008 8:00 AM HEALTH SOCIAL WORK PROFESSOR 07/26/2008 8:05 AM HEALTH SOCIAL WORK PROFESSOR Christiano Ramírez MD HEMATOLOGY ORDERABLES Edited INTERFACE SYSTEM Refer to clinic/hospital department [facility] CLIA# [id number] [facility] [place] [address] * (ABNORMAL) PLATELET COUNT (07/26/2008 8:00 AM HEALTH SOCIAL WORK PROFESSOR) PLATELETS 42(L) 140 - 440 K/ul [facility] Blood specimen (specimen) 07/26/2008 8:00 AM HEALTH SOCIAL WORK PROFESSOR 07/26/2008 8:05 AM HEALTH SOCIAL WORK PROFESSOR us Christiano Ramírez MD HEMATOLOGY ORDERABLES Final Res ult INTERFACE SYSTEM Refer to clinic/hospital department [facility] CLIA# [id number] [facility] [place] [address] documented in this encounter Visit Diagnoses Diagnosis Other ascites documented in this encounter Care Teams Weave Room Supervisor Relationship Specialty Start Date End Date Smith Martínez DO [address] [address] PCP - General Internal Medicine 08/06/18 documented as of this encounter
--- OUTSIDE RECORDS SUMMARY | 2025-06-18 11:08 | XMS_ITS | Encounter Summary ---
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 Gender Identity Not on file Sexual Orientation [...] 4:41 PM CDT) BANDS, FLD 1 % [facility] WBC, FLD 160 /mm3 [facility] LYMPHOCYTE, FLD 41 % [facility] APPEARANCE, BODY FLUID Slightly Cloudy [facility] MACROPHAGE, FLD 21 % [facility] RBC, FLD 318 /mm3 [facility] COLOR, FLD Yellow [facility] MESOTHELIAL, FLD 13 % [facility] NEUTROPHILS, FLD 24 % [facility] SOURCE FLUID Ascites [facility] 05/19/2008 4:41 PM CDT 05/19/2008 4:41 PM CDT Christiano Ramírez MD BODY FLUIDS AND STOOLS Final Re sult INTERFACE SYSTEM Refer to clinic/hospital department [facility] CLIA# [id number] [address] [place] [address] * US GUIDED ASPIRATION (05/19/2008 2:05 PM [...] CDT) PROTIME 17.8(H) 12.8 - 15.8 Secs [facility] Comment:As of 2007 not e change in normal range. PTT 37.1(H) 22.5 - 36.5 Secs [facility] Comment: Therapeutic Range: Hi-level PE/DVT heparin protocol 80.1 -95.0 sec Lo-level PE/DVT heparin protocol 67.1 - 80.0 sec Cardiac Heparin Protocol 67.1 - 85.0 sec Neuro Heparin Protocol 67.1 - 80.0 sec As of 11/12/2007 note change in APTT Normal Range. INR 1.3 [facility] Comment: Expected Values for INR: DVT/PE [...] Anticoagulation available from the pharmacy James Matos. [phone] Blood specimen (specimen) 05/19/2008 1:06 PM CDT 05/19/2008 1:06 PM CDT Christiano Ramírez MD HEMATOLOGY ORDERABLES Edited Performing Organization Address City/[facility] de Phone Number INTERFACE SYSTEM Refer to clinic/hospital department [facility] CLIA# [id number] [address] [place] [address] * (ABNORMAL) PLATELET COUNT (05/19/2008 12:24 PM CDT) PLATELETS 57(L) 140 - 440 K/ul [facility] Blood specimen (specimen) 05/19/2008 12:24 PM CDT 05/19/2008 12:24 PM CDT Christiano Ramírez MD HEMATOLOGY ORDERABLES Final Res ult Performing Organization Address City/[facility]/ZIP Co de Phone Number INTERFACE SYSTEM Refer to clinic/hospital department [facility] CLIA# [id number] [address] [place] [address] documented in this encounter Visit Diagnoses Diagnosis Other ascites Cirrhosis of liver without mention of alcohol (CMS/HCC) Cirrhosis of liver without mention of alcohol Unspecified viral hepatitis C without hepatic coma Unspecified essential hypertension documented in this encounter Care Teams Cyber Policy And Strategy Planner Relationship Specialty Start Date End Date Smith Martínez DO [address] [address] PCP - General Internal Medicine 08/06/18 documented as of this encounter
--- OUTSIDE RECORDS SUMMARY | 2025-06-18 11:08 | XMS_ITS | Encounter Summary ---
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
--- OUTSIDE RECORDS SUMMARY | 2025-06-18 11:08 | XMS_ITS | Encounter Summary ---
Author Organization [facility] Address [address] [place] [address] Care Team Providers Care Outreach Counselor Name Role Phone Smith Martínez DO Primary Care Provide r Encounter Details Date Type Department Care Team (Latest Contact Info) Description 01/01/2007 Outpatient Historical [facility] Endoscopy [place] [address] [place] [address] Christiano Ramírez MD NO ADDRESS ON FILE Other Follow-Up Examination (Primary Dx) Social History Tobacco Use Types Packs/Day Years Used Date Smoking Tobacco: Never Assessed Comments Unknown Sex and Gender Information Value Date Recorded Sex Assigned at Not on file Legal Sex Female 6:13 AM SENIOR CYTOGENETICS LABORATORY DIRECTOR Gender Identity Not on file Sexual Orientation Not on file documented as of this encounter Plan of Treatment Not on file documented as of this encounter Visit Diagnoses Diagnosis Other follow-up examination(V67.59)- Primary Other follow-up examination documented in this encounter Care Teams Outreach Counselor Relationship Specialty Start Date End Date Smith Martínez DO [address] [place] [address] PCP - General Internal Medicine 08/06/18 documented as of this encounter
--- OUTSIDE RECORDS SUMMARY | 2025-06-18 11:08 | XMS_ITS | Encounter Summary ---
Author Organization [facility] Address [address] [place] [address] Care Team Providers Care Agile Java Developer Name Role Phone Smith Martínez DO Primary Care Provide r Encounter Details Date Type Department Care Team (Latest Contact Info) Description 03/03/[address] 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
--- OUTSIDE RECORDS SUMMARY | 2025-06-18 11:08 | XMS_ITS | Encounter Summary ---
Author Organization [facility] Address [address] [place] [address] Care Team Providers Care Finish Cleaner Name Role Phone Smith Martínez DO Primary Care Provide r Encounter Details Date Type Department Care Team (Latest Contact Info) Description 11/12/2004 Outpatient [facility] [address] Gastroenterology- [place] [id number] [facility] [address] [place] [address] Sloan Vickers MD [facility] [place] [facility] [address] [place] [address] AGRANULOCYTOSIS (Primary Dx); ANEMIA NOS; VIR HEP NEC W/O COMA W HEP C CHRON (CMS/HCC); CIRRHOSIS OF LIVER NOS (CMS/HCC) Social History Tobacco Use Types Packs/Day Years Used Date Smoking Tobacco: Never Assessed Comments Unknown Sex and Gender Information Value Date Recorded Sex Assigned at Not on file 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
--- OUTSIDE RECORDS SUMMARY | 2025-06-18 11:08 | XMS_ITS | Encounter Summary ---
Author Organization [facility] Address [address] [place] [address] Care Team Providers Care Aerobics Instructor Name Role Phone Smith Martínez DO Primary Care Provide r Encounter Details Date Type Department Care Team (Latest Contact Info) Description 06/17/2005 Outpatient [facility] Gastroenterology[address] [place] [address] Sloan Vickers MD [address] [place] [address] [address] [place] [address] VIR HEP NEC W/O COMA W HEP C CHRON (CMS/HCC) (Primary Dx); ALCOHOL LIVER DAMAGE NOS (CMS/HCC) Social History Tobacco Use Types Packs/Day Years Used Date Smoking Tobacco: Never Assessed Comments Unknown Sex and Gender Information Value Date Recorded Sex Assigned at Not on file 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
--- OUTSIDE RECORDS SUMMARY | 2025-06-18 11:08 | XMS_ITS | Encounter Summary ---
Author Organization 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 Gender Identity Not on file Sexual [...] (06/08/2008 12:22 PM CDT) PATHOLOGY/CYT OLOGY REPORT [facility] Anatomic Pathology Dept Replaced by [facility] [address] Patient: ECHO WRIGHT Accn No: [id number] Collected: 06/08/2008 12:22:00 PM CYTOLOGY NON-GYNECOLOGIC FINAL [...] 12:04 PM CDT) MONOCYTE, FLD 23 % [facility] COLOR, FLD Yellow [facility] NEUTROPHILS, FLD 7 % [facility] WBC, FLD 110 /mm3 [facility] SOURCE FLUID Ascites [facility] MACROPHAGE, FLD 19 % [facility] LYMPHOCYTE, FLD 49 % [facility] APPEARANCE, BODY FLUID Clear [facility] MESOTHELIAL, FLD 2 % [facility] RBC, FLD 160 /mm3 [facility] 06/08/2008 12:0 4 PM CDT 06/08/2008 12:05 PM CDT Christiano Ramírez MD BODY FLUIDS AND STOOLS Final Re sult Performing Organization Address [facility] Phone Number INTERFACE SYSTEM Refer to clinic/hospital department [facility] CLIA# [id number] [address] [place] [address] * ALBUMIN LEVEL, BODY FLUID (06/08/2008 12:04 PM CDT) ALBUMIN, FLD <1.0 g/dL [facility] SOURCE FLUID Ascites [facility] 06/08/2008 12:0 4 PM CDT 06/08/2008 12:04 PM CDT Christiano Ramírez MD BODY FLUIDS AND STOOLS Final Re sult Performing Organization Address [facility] Phone Number INTERFACE SYSTEM Refer to clinic/hospital department [facility] CLIA# [id number] [address] [place] [address] * US GUIDED ASPIRATION (06/08/2008 11:47 AM [...] By: Kylee Mcclendon M.D. Date Signed: 06/08/08 [facility] Procedure Note Kylee Mcclendon MD [...] By: Kylee Mcclendon M.D. Date Signed: 06/08/08 [facility] us Christiano Ramírez MD ORDERABLES Final Result * PATHOLOGY (06/08/2008 11:08 AM CDT) PATHOLOGY/CYT OLOGY REPORT [facility] Anatomic Pathology Dept [address] [facility] [address] Patient: ECHO WRIGHT Accn No: [id number] Collected: 06/08/2008 11:08:00 AM SURGICAL PATHOLOGY FINAL REPORT Diagnosis A. Cell block, ascites fluid - negative for malignancy. Augusto Chavez M.D. (Electronically signed by) Verified: 06/09/08 SEC/SEC Clinical Information Ascitic fluid for cell block, Cytology [id number]. Specimen Source ACell Block, ASCITES FLUID Microscopic [...] APTT (06/08/2008 10:38 AM CDT) INR 1.4 [facility] Comment: Expected Values for INR: DVT/PE Goal INR 2.5; range 2.0 - 3.0 Valve Replacement Tissue Goal INR 2.5; range 2.0 - 3.0 Mechanical Goal INR 3.0; range 2.5 - 3.5 POST-MA Goal INR 2.5; range 2.0 - 3.0 or Goal 3.0; range 2.5 - 3.5 Atrial Fibrillation Goal INR 2.5; range 2.0 - 3.0 Ischemic Stroke Goal INR 2.5; range 2.0 - 3.0 For additional information see Guidelines for Anticoagulation available from the pharmacy James Matos [phone] PTT 37.6(H) 22.5 - 36.5 Secs [facility] Comment: Therapeutic Range: Hi-level PE/DVT heparin protocol 80.1 -95.0 sec Lo-level PE/DVT heparin protocol 67.1 - 80.0 sec Cardiac Heparin Protocol 67.1 - 85.0 sec Neuro Heparin Protocol 67.1 - 80.0 sec As of 11/12/2007 note change in APTT Normal Range. PROTIME 18.8(H) 12.8 - 15.8 Secs [facility] Comment:As of 2007 not e change in normal range. Blood specimen (specimen) 06/08/2008 10:38 AM CDT 06/08/2008 10:43 AM CDT Christiano Ramírez MD HEMATOLOGY ORDERABLES Edited Performing Organization Address [facility] de Phone Number INTERFACE SYSTEM Refer to clinic/hospital department [facility] CLIA# [id number] [address] [place] [address] * (ABNORMAL) PLATELET COUNT (06/08/2008 10:38 AM CDT) PLATELETS 38(L) 140 - 440 K/ul [facility] Blood specimen (specimen) 06/08/2008 10:38 AM CDT 06/08/2008 10:43 AM CDT Christiano Ramírez MD HEMATOLOGY ORDERABLES Final Res ult Performing Organization Address [facility] de Phone Number INTERFACE SYSTEM Refer to clinic/hospital department [facility] CLIA# [id number] [address] [place] [address] documented in this encounter Visit Diagnoses Diagnosis Cirrhosis of liver without mention of alcohol (CMS/HCC) Cirrhosis of liver without mention of alcohol documented in this encounter Care Teams Makeup Artist Relationship Specialty Start Date End Date Smith Martínez DO [address] [address] PCP - General Internal Medicine 08/06/18 documented as of this encounter
--- OUTSIDE RECORDS SUMMARY | 2025-06-18 11:08 | XMS_ITS | Encounter Summary ---
Author Organization [facility] Address [address] [place] [address] Care Team Providers Care Rock Mason Name Role Phone Smith Martínez DO Primary Care Provide r Encounter Details Date Type Department Care Team (Late st Contact Info) Description 08/15/2005 Outpatient Historical [facility] Imaging Services-[facility]yle [address] [place] [address] [place] [address] Sloan Vickers MD [facility] [address] [place] [address] Social History Tobacco Use Types Packs/Day Years Used Date Smoking Tobacco: Never Assessed Comments Unknown Sex and Gender Information Value Date Recorded Sex Assigned at Not on file 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
--- OUTSIDE RECORDS SUMMARY | 2025-06-18 11:08 | XMS_ITS | Encounter Summary ---
Author Organization [facility] Address [address] [place] [address] Care Team Providers Care Account Services Manager Name Role Phone Smith Martínez DO Primary Care Provide r Encounter Details Date Type Department Care Team (Latest Contact Info) Description 08/15/2005 Outpatient [facility] Gastroenterology[address] [place] [address] Sloan Vickers MD [address] [place] [address] [address] [place] [address] VIR HEP NEC W/O COMA W HEP C CHRON (CMS/HCC) (Primary Dx); CIRRHOSIS OF LIVER NOS (CMS/HCC) Social History Tobacco Use Types Packs/Day Years Used Date Smoking Tobacco: Never Assessed Comments Unknown Sex and Gender Information Value Date Recorded Sex Assigned at Not on file 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
--- OUTSIDE RECORDS SUMMARY | 2025-06-18 11:08 | XMS_ITS | Encounter Summary ---
Author Organization [facility] Address [address] [place] [address] Care Team Providers Care Conference Manager Name Role Phone Smith Martínez Primary Care Provide r Encounter Details Date Type Department Care Team (Latest Contact Info) Description 09/24/2005 Outpatient Historical [facility] Endoscopy [address] [place] [address] Sloan Vickers MD [facility] [address] [place] [address] GASTRITIS/DUODEN NOS W/O HEMORRH (Primary Dx) Social History Tobacco Use Types Packs/Day Years Used Date Smoking Tobacco: Never Assessed Comments Unknown Sex and Gender Information Value Date Recorded Sex Assigned at Not on file Legal Sex Female 6:13 AM RETAIL AIDE Gender Identity Not on file Sexual Orientation Not on file documented as of this encounter Plan of Treatment Not on file documented as of this encounter Procedures Procedure Name Priority Date/Time Associated Diagnosis Comments DIFFERENTIAL, MANUAL Routine 09/24/2005 2:25 PM RETAIL AIDE CBC WITH DIFFERENTIAL Routine 09/24/2005 2:25 PM RETAIL AIDE HEPATIC FUNCTION PANEL Routine 09/24/2005 2:25 PM RETAIL AIDE documented in this encounter Results * (ABNORMAL) HEPATIC FUNCTION PANEL (09/24/2005 2:25 PM RETAIL AIDE) Pathologist [facility] ALKALINE PHOSPHATASE 91 38 [...] mg/dL INTERFACE SYSTEM 09/24/2005 2:25 PM RETAIL AIDE Historical Provider CHEMISTRY ORDERABLES Final R esult Performing Organization Address City/[facility]/ZIP Co de Phone Number INTERFACE SYSTEM Refer to clinic/hospital department * (ABNORMAL) DIFFERENTIAL, MANUAL (09/24/2005 2:25 PM RETAIL AIDE) [facility] NEUTROPHILS, SEG 76(H) 36 - 66 [...] INTE RFACE SYSTEM 09/24/2005 2:25 PM RETAIL AIDE Historical Provider HEMATOLOGY ORDERABLES COM Fi nal Result INTERFACE SYSTEM Refer to clinic/hospital department * (ABNORMAL) CBC WITH DIFFERENTIAL (09/24/2005 2:25 PM RETAIL AIDE) Pathologist [facility] HEM COMMENT Smear Reviewed [...] K/ul INTERFACE SYSTEM 09/24/2005 2:25 PM RETAIL AIDE us Historical Provider HEMATOLOGY ORDERABLES Final Result INTERFACE SYSTEM Refer to clinic/hospital department documented in this encounter Visit Diagnoses Diagnosis Unspecified gastritis and gastroduodenitis without mention of hemorrhage- Primary documented in this encounter Care Teams Conference Manager Relationship Specialty Start Date End Date Smith Martínez DO [address] [phone] PCP - General Internal Medicine 08/06/18 documented as of this encounter
--- OUTSIDE RECORDS SUMMARY | 2025-06-18 11:08 | XMS_ITS | Encounter Summary ---
Author Organization [facility] Address [address] [place] [address] Care Team Providers Care Blending Supervisor Name Role Phone Smith Martínez DO Primary Care Provide r Encounter Details Date Type Department Care Team (Latest Contact Info) Description 09/10/2004 Outpatient [facility] Gastroenterology[address] [place] [address] Nilton Samaniego MD [address] [facility] [address] [place] [address] ESOPH VARICES W/O BLEED (CMS/HCC) (Primary Dx); CIRRHOSIS OF LIVER NOS (CMS/HCC) Social History Tobacco Use Types Packs/Day Years Used Date Smoking Tobacco: Never Assessed Comments Unknown Sex and Gender Information Value Date Recorded Sex Assigned at Not on file 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
--- OUTSIDE RECORDS SUMMARY | 2025-06-18 11:08 | XMS_ITS | Encounter Summary ---
Author Organization [facility] Address [address] [place] [address] Care Team Providers Care Accounts Receivable Supervisor Name Role Phone MartínezSmith nowakhaniel Primary [...] SCREENING DIGITAL BREAST TOMOSYNTHESIS BI Ligia Parra, PRISON WARDEN [address] [address] Phone: tel: fax: [facility] [address] [address] Phone: tel: fax: Referral ID Status Reason Start Date Expiration Date Visits Re quested Visits Authorized [id number] Closed 02/15/2019 03/17/2020 1 1 Encounter Details Date Type Department Care Team (Late st Contact Info) Description 02/15/2019 Ancillary Orders [facility] Pre-Registration [place] CALL TO MAKE APPOINTMENT ONLY [address] [place] [address] Ligia Parra, PRISON WARDEN [address] [phone] Encounter for screening mammogram for malignant neoplasm of breast Social History Tobacco Use Types Packs/Day Years Used Date Smoking Tobacco: Never Smokeless Tobacco: Never Alcohol Use Standard Drinks/Week Comments No 0 (1 standard drink = 0.6 oz pur e alcohol) Comments No Sex and Gender Information Value Date Recorded Sex Assigned at Not on file 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
--- OUTSIDE RECORDS SUMMARY | 2025-06-18 11:08 | XMS_ITS | Encounter Summary ---
Author Organization [facility] Address [address] [place] [address] Care Team Providers Care Lining Feller Blindstitch Name Role Phone Smith Martínez Primary Care Provide r Reason for Referral * Outpatient Services (Routine) - Closed Specialty Diagnoses / Procedures Referred By Alfredo smith Referred To Contact Diagnoses Encounter for screening for malignant neoplasm of breast Procedures MAMMO SCRN BILAT 3D CLAUDETTE W OR WO CAD MAMMO SCREEN BILAT W OR WO CAD Ligia Parra NP [address] [address] Phone: tel: fax: Referral ID Status Reason Start Date Expiration Date Visits Re quested Visits Authorized [id number] Closed 11/28/2017 12/29/2018 1 1 Encounter Details Date Type Department Care Team (Late st Contact Info) Description 11/28/2017 Ancillary Orders [facility] Pre-Registration [place] CALL TO MAKE APPOINTMENT ONLY [address] [place] [address] Ligia Parra ENTERTAINMENT MUSICIAN [address] [address] Encounter for screening for malignant neoplasm of breast Social History Tobacco Use Types Packs/Day Years Used Date Smoking Tobacco: Never Smokeless Tobacco: Never Alcohol Use Standard Drinks/Week Comments No 0 (1 standard drink = 0.6 oz pur e alcohol) Comments No Sex and Gender Information Value Date Recorded Sex Assigned at Not on file Legal Sex Female 6:13 AM PIN DRAFTING MACHINE OPERATOR Gender Identity Not on file [...] findings since the prior mammogram(s). Ligia Parra ENTERTAINMENT MUSICIAN MAMMO ORDERABLES Final Result documented in this encounter Visit Diagnoses Diagnosis Encounter for screening for malignant neoplasm of breast Encounter for screening for malignant neoplasm of breast documented in this encounter Care Teams Lining Feller Blindstitch Relationship Specialty Start Date End Date Smith Martínez DO [address] [address] PCP - General Internal Medicine 08/06/18 documented as of this encounter
--- OUTSIDE RECORDS SUMMARY | 2025-06-18 11:08 | XMS_ITS | Encounter Summary ---
Author Organization [facility] Address [address] [place] [address] Care Team Providers Care Multigrapher Name Role Phone Smith Martínez DO Primary Care Provide r Encounter Details Date Type Department Care Team (Late st Contact Info) Description 07/15/2005 Outpatient Historical [facility] Imaging Services-K[facility] Bea[facility] [place] [address] [place] [address] Sloan Vickers MD [facility] [address] [place] [address] Social History Tobacco Use Types Packs/Day Years Used Date Smoking Tobacco: Never Assessed Comments Unknown Sex and Gender Information Value Date Recorded Sex Assigned at Not on file Legal Sex Female 6:13 AM AUTO CARE CENTER MANAGER Gender Identity Not on file Sexual Orientation Not on file documented as of this encounter Plan of Treatment Not on file documented as of this encounter Visit Diagnoses Not on filedocumented in this encounter Care Teams Multigrapher Relationship Specialty Start Date End Date Smith Martínez DO [address] [place] [address] PCP - General Internal Medicine 08/06/18 documented as of this encounter
--- OUTSIDE RECORDS SUMMARY | 2025-06-18 11:08 | XMS_ITS | Encounter Summary ---
Author Organization [facility] Address [address] [place] [address] Care Team Providers Care Venetian Blind Cleaner Name Role Phone Smith Martínez DO Primary Care Provide r Encounter Details Date Type Department Care Team (Latest Contact Info) Description 04/18/2005 Outpatient [facility] Gastro[address] [place] [address] Sloan Vickers MD [address] [place] [address] [address] [place] [address] VIR HEP NEC W/O COMA W HEP C CHRON (CMS/HCC) (Primary Dx); CIRRHOSIS OF LIVER NOS (CMS/HCC) Social History Tobacco Use Types Packs/Day Years Used Date Smoking Tobacco: Never Assessed Comments Unknown Sex and Gender Information Value Date Recorded Sex Assigned at Not on file Legal Sex Female 6:13 AM COMMUNICATIONS PROJECT LEAD Gender Identity Not on file Sexual [...] alcohol documented in this encounter Care Teams Venetian Blind Cleaner Relationship Specialty Start Date End Date Smith Martínez DO [address] [place] [address] PCP - General Internal Medicine 08/06/18 documented as of this encounter
--- OUTSIDE RECORDS SUMMARY | 2025-06-18 11:08 | XMS_ITS | Encounter Summary ---
Author Organization [facility] Address [address] [place] [address] Care Team Providers Care Bakery Technician Name Role Phone Smith Martínez DO [...] on file Legal Sex Female 6:13 AM TELEPHONE MAINTENANCE MECHANIC Gender Identity Not on file Sexual Orientation Not on file documented as of this encounter Plan of Treatment Not on file documented as of this encounter Visit Diagnoses Diagnosis Chronic hepatitis C without mention of hepatic coma (CMS/HCC)- Primary Chronic hepatitis C without mention of hepatic coma documented in this encounter Care Teams Bakery Technician Relationship Specialty Start Date End Date Smith Martínez DO [address] [place] [address] PCP - General Internal Medicine 08/06/18 documented as of this encounter
--- OUTSIDE RECORDS SUMMARY | 2025-06-18 11:08 | XMS_ITS | Encounter Summary ---
Author Organization [facility] Address [address] [place] [address] Care Team Providers Care Gas Appliance Repairer Name Role Phone MartínezSmith nowak Primary Care Provide r Encounter Details Date Type Department Care Team (Latest Contact Info) Description 06/21/2008 Outpatient Historical [facility] Christiano Ramírez MD NO ADDRESS ON FILE Page, Herberth Gallagher DO [address] [place] [address] Other Ascites; Unspecified Viral Hepatitis [...] on file Legal Sex Female 6:13 AM CLINIC DIRECTOR Gender Identity Not on file Sexual [...] the insertion of a 7 cm 18-gauge [employer] centesis catheter, through which approximately 5,000 mL [...] By: Herberth Jurado D.O. Date Signed: 06/22/08 [facility] Procedure Note Herberth Jurado - 06/22/2008 [...] APTT (06/22/2008 7:17 AM CDT) INR 1.3 [facility] Comment: Expected Values for INR: [...] Guidelines for Anticoagulation available from the pharmacy Jmaes Matos. [phone] PTT 29.2 22.5 - 36.5 Secs [facility] Comment: Therapeutic Range: Hi-level PE/DVT heparin protocol 80.1 -95.0 sec Lo-level PE/DVT heparin protocol 67.1 - 80.0 sec Cardiac Heparin Protocol 67.1 - 85.0 sec Neuro Heparin Protocol 67.1 - 80.0 sec As of 11/12/2007 note change in APTT Normal Range. PROTIME 17.7(H) 12.8 - 15.8 Secs [facility] Comment:As of 2007 not e change in normal range. Blood specimen (specimen) 06/22/2008 7:17 AM CDT 06/22/2008 7:17 AM CDT Christiano Ramírez MD HEMATOLOGY ORDERABLES Edited Performing Organization Address City/[facility] Phone Number INTERFACE SYSTEM Refer to clinic/hospital department [facility] CLIA# [id number] [address] [place] [address] * (ABNORMAL) PLATELET COUNT (06/22/2008 7:17 AM CDT) PLATELETS 36(L) 140 - 440 K/ul [facility] Blood specimen (specimen) 06/22/2008 7:17 AM CDT 06/22/2008 7:17 AM CDT us Christiano Ramírez MD HEMATOLOGY ORDERABLES Final Res ult Performing Organization Address [facility] Phone Number INTERFACE SYSTEM Refer to clinic/hospital department [facility] CLIA# [id number] [address] [place] [address] documented in this encounter Visit Diagnoses Diagnosis Other ascites Unspecified viral hepatitis C without hepatic coma 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
--- OUTSIDE RECORDS SUMMARY | 2025-06-18 11:08 | XMS_ITS | Encounter Summary ---
Author Organization [facility] Address [address] [facility] Attn: [place] [address] Care Team Providers Care Photo Specialist Name Role Phone Smith Martínez DO [...] on file Legal Sex Female 6:13 AM WATER PURIFICATION CHEMIST Gender Identity Not on file Sexual Orientation [...] on filedocumented in this encounter Care Teams Photo Specialist Relationship Specialty Start Date End Date Smith Martínez DO [address] [phone] PCP - General Internal Medicine 08/06/18 documented as of this encounter
--- OUTSIDE RECORDS SUMMARY | 2025-06-18 11:08 | XMS_ITS | Encounter Summary ---
Author Organization [facility] Address [address] [place] [address] Care Team Providers Care Customer Solutions Architect Name Role Phone Smith Martínez DO Primary Care Provide r Encounter Details Date Type Department Care Team (Latest Contact Info) Description 01/01/2007 Outpatient [facility] Gastroenterology[address] [place] [address] Christiano Ramírez MD NO ADDRESS ON FILE Acute Stomach Ulcer (Primary Dx) Social History Tobacco Use Types Packs/Day Years Used Date Smoking Tobacco: Never Assessed Comments Unknown Sex and Gender Information Value Date Recorded Sex Assigned at Not on file Legal Sex Female 6:13 AM REMOTE SENSING SPECIALIST Gender Identity Not on file Sexual Orientation Not on file documented as of this encounter Plan of Treatment Not on file documented as of this encounter Visit Diagnoses Diagnosis Acute gastric ulcer without mention of hemorrhage, perforation, or obstruction- Primary documented in this encounter Care Teams Customer Solutions Architect Relationship Specialty Start Date End Date Smith Martínez DO [address] [facility] [address] [place] [address] PCP - General Internal Medicine 08/06/18 documented as of this encounter
--- OUTSIDE RECORDS SUMMARY | 2025-06-18 11:08 | XMS_ITS | Encounter Summary ---
Author Organization [facility] Address [address] [place] [address] Care Team Providers Care Railcar Brake Operator Name Role Phone Smith Martínez DO Primary Care Provide r Encounter Details Date Type Department Care Team (Latest Contact Info) Description 05/13/2005 Outpatient [facility] Gastroenterology[address] [place] [address] Sloan Vickers MD [address] [place] [address] [address] [place] [address] VIR HEP NEC W/O COMA W HEP C CHRON (CMS/HCC) (Primary Dx); CIRRHOSIS OF LIVER NOS (CMS/HCC) Social History Tobacco Use Types Packs/Day Years Used Date Smoking Tobacco: Never Assessed Comments Unknown Sex and Gender Information Value Date Recorded Sex Assigned at Not on file Legal Sex Female 6:13 AM CONSERVATION WORKER Gender Identity Not on file Sexual [...] alcohol documented in this encounter Care Teams Railcar Brake Operator Relationship Specialty Start Date End Date Smith Martínez DO [address] [place] [address] PCP - General Internal Medicine 08/06/18 documented as of this encounter
--- OUTSIDE RECORDS SUMMARY | 2025-06-18 11:08 | XMS_ITS | Encounter Summary ---
Author Organization [facility] Address [address] [place] [address] Care Team Providers Care Registered Land Surveyor Name Role Phone Smith Martínez DO Primary Care Provide r Encounter Details Date Type Department Care Team (Latest Contact Info) Description 08/15/2005 Outpatient Historical [facility] [place] [address] [place] [address] Sloan Vickers MD [address] [place] [address] [address] [place] [address] VIR HEP NEC W/O COMA W HEP C CHRON (CMS/HCC) (Primary Dx) Social History Tobacco Use Types Packs/Day Years Used Date Smoking Tobacco: Never Assessed Comments Unknown Sex and Gender Information Value Date Recorded Sex Assigned at Not on file Legal Sex Female 6:13 AM KNIFE OPERATOR Gender Identity Not on file Sexual Orientation Not on file documented as of this encounter Plan of Treatment Not on file documented as of this encounter Visit Diagnoses Diagnosis Chronic hepatitis C without mention of hepatic coma (CMS/HCC)- Primary Chronic hepatitis C without mention of hepatic coma documented in this encounter Care Teams Registered Land Surveyor Relationship Specialty Start Date End Date Smith Martínez DO [address] [place] [address] PCP - General Internal Medicine 08/06/18 documented as of this encounter
--- OUTSIDE RECORDS SUMMARY | 2025-06-18 11:08 | XMS_ITS | Encounter Summary ---
Author Organization [facility] Address [address] [place] [address] Care Team Providers Care Photographic Spotter Name Role Phone Smith Martínez DO Primary Care Provide r Encounter Details Date Type Department Care Team (Latest Contact Info) Description 10/25/2004 Outpatient Historical [facility] Sherrie Allen FNP NO ADDRESS ON FILE VIR HEP NEC W/O COMA W HEP C CHRON (CMS/HCC) (Primary Dx); CIRRHOSIS OF LIVER NOS (CMS/HCC) Social History Tobacco Use Types Packs/Day Years Used Date Smoking Tobacco: Never Assessed Comments Unknown Sex and Gender Information Value Date Recorded Sex Assigned at Not on file Legal Sex Female 6:13 AM MANUFACTURING 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
--- OUTSIDE RECORDS SUMMARY | 2025-06-18 11:08 | XMS_ITS | Encounter Summary ---
Author Organization [facility] Address [address] [facility] Attn: Epic [place] [address] Care Team Providers Care Conceptor Name Role Phone Smith Martínez DO Primary Care Provide r Encounter Details Date Type Department Care Team (Late st Contact Info) Description 07/15/2005 Outpatient Historical Sloan Vickers MD [address] [place] [address] [address] [place] [address] Social History Tobacco Use Types Packs/Day Years Used Date Smoking Tobacco: Never Assessed Comments Unknown Sex and Gender Information Value Date Recorded Sex Assigned at Not on file Legal Sex Female 6:13 AM CONVEX GRINDER OPERATOR Gender Identity Not on file Sexual Orientation Not on file documented as of this encounter Plan of Treatment Not on file documented as of this encounter Procedures Procedure Name Priority Date/Time Associated Diagnosis Comments ALPHA FETOPROTEIN TUMOR MARKER Routine 07/15/2005 10:30 AM CONVEX GRINDER OPERATOR documented in this encounter Results * ALPHA FETOPROTEIN TUMOR MARKER (07/15/2005 10:30 AM CONVEX GRINDER OPERATOR) ALPHA FETOPROTEIN MATERNAL 4.6 <=8.5 ng/mL INTERFACE SYSTEM 07/15/2005 10:3 0 AM CONVEX GRINDER OPERATOR us Sloan Vickers MD CHEMISTRY ORDERABLES Final Result INTERFACE SYSTEM Refer to clinic/hospital department documented in this encounter Visit Diagnoses Not on filedocumented in this encounter Care Teams Conceptor Relationship Specialty Start Date End Date Smith Martínez DO [address] [address] PCP - General Internal Medicine 08/06/18 documented as of this encounter
--- OUTSIDE RECORDS SUMMARY | 2025-06-18 11:09 | XMS_ITS | Encounter Summary ---
Author Organization [facility] Address [address] [place] [address] Care Team Providers Care Clerical Adviser Name Role Phone Smith Martínez DO Primary [...] on file Legal Sex Female 6:13 AM AIRCRAFT ELECTRICIAN Gender Identity Not on file Sexual Orientation Not on file documented as of this encounter Plan of Treatment Not on file documented as of this encounter Visit Diagnoses Diagnosis Chronic hepatitis C without mention of hepatic coma (CMS/HCC)- Primary Chronic hepatitis C without mention of hepatic coma documented in this encounter Care Teams Clerical Adviser Relationship Specialty Start Date End Date Smith Martínez DO [address] [place] [address] PCP - General Internal Medicine 08/06/18 documented as of this encounter
--- OUTSIDE RECORDS SUMMARY | 2025-06-18 11:09 | XMS_ITS | Encounter Summary ---
Author Organization [facility] Address [address] [place] [address] Care Team Providers Care Billboard Poster Helper Name Role Phone Smith Martínez Primary Care Provide r Encounter Details Date Type Department Care Team (Late st Contact Info) Description 07/21/2006 Outpatient Historical [facility] Operating Room [address] [place] [address] Louie Hyman MD [address] [facility] [address] [place] [address] Unilat Ing Hernia (Primary Dx) Social History Tobacco Use Types Packs/Day Years Used Date Smoking Tobacco: Never Assessed Comments Unknown Sex and Gender Information Value Date Recorded Sex Assigned at Not on file Legal Sex Female 6:13 AM TROUBLE DISPATCHER Gender Identity Not on file Sexual Orientation Not on file documented as of this encounter Plan of Treatment Not on file documented as of this encounter Procedures Procedure Name Priority Date/Time Associated Diagnosis Comments DIFFERENTIAL, MANUAL Routine 07/21/2006 6:35 AM TROUBLE DISPATCHER CBC WITH DIFFERENTIAL Routine 07/21/2006 6:35 AM TROUBLE DISPATCHER COMPREHENSIVE METABOLIC PANEL Routine 07/21/2006 6:35 AM TROUBLE DISPATCHER documented in this encounter Results * (ABNORMAL) COMPREHENSIVE METABOLIC PANEL (07/21/2006 6:35 AM TROUBLE DISPATCHER) GLUCOSE 92 70 - 110 mg/dL INTERFACE [...] INTERFACE SYSTEM Comment: As of 05 the [facility] has changed testing methods. The new reference range is 25-100 The old referance range was 38-126 AST 211(H) 8 - 33 U/L INTERFACE SYSTEM Comment: As of 05 the [facility] has changed testing methods. The new reference range is 8-33 The old referance range was Males 17-59 Females 14-36 ALT 196(H) 4 - 36 IU/L INTERFACE SYSTEM Comment: As of 05 the [facility] has changed testing methods. The new reference range is 4-36 The old referance range was Males 21-72 Females 9-52 BILIRUBIN TOTAL 1.3(H) 0.3 - 1.2 mg/dL INTERFACE SYSTEM Comment: As of 05 the [facility] has changed testing methods. The new reference range is 0.3-1.2 The old referance range was 0.2-1.4 07/21/2006 6:35 AM TROUBLE DISPATCHER us Louie Hyman MD CHEMISTRY ORDERABLES Fi nal Result INTERFACE SYSTEM Refer to clinic/hospital department * (ABNORMAL) DIFFERENTIAL, MANUAL (07/21/2006 6:35 AM TROUBLE DISPATCHER) NEUTROPHILS, SEG 56 36 - 66 % [...] Normal INTER FACE SYSTEM 07/21/2006 6:35 AM TROUBLE DISPATCHER Louie Hyman MD HEMATOLOGY ORDERABLES C OM Final Result Performing Organization Address [facility] Phone Number INTERFACE SYSTEM Refer to clinic/hospital department * (ABNORMAL) CBC WITH DIFFERENTIAL (07/21/2006 6:35 AM TROUBLE DISPATCHER) WBC 3.0(L) 4.8 - 10.8 K/ul INTERFACE [...] 12.8 Fl INTERFACE SYSTEM 07/21/2006 6:35 AM TROUBLE DISPATCHER Louie Hyman MD HEMATOLOGY ORDERABLES F inal Result Performing Organization Address [facility] Phone Number INTERFACE SYSTEM Refer to clinic/hospital department documented in this encounter Visit Diagnoses Diagnosis Inguinal hernia without mention of obstruction or gangrene, unilateral or unspecified, (not specified as recurrent)- Primary documented in this encounter Care Teams Billboard Poster Helper Relationship Specialty Start Date End Date Smith Martínez DO [address] [place] [address] [address] PCP - General Internal Medicine 08/06/18 documented as of this encounter
--- OUTSIDE RECORDS SUMMARY | 2025-06-18 11:09 | XMS_ITS | Encounter Summary ---
Author Organization [facility] Address [address] [place] [address] Care Team Providers Care Managing Partner Digital Content Marketing [place] [employer] Name Role Phone Smith Martínez DO Primary Care Provide r Encounter Details Date Type Department Care Team (Latest Contact Info) Description 08/12/2006 Outpatient Historical [facility] [address] [place] [address] Christiano Ramírez MD NO ADDRESS ON FILE Acute Hepatitis C without Mention of Hepatic Coma (Primary Dx) Social History Tobacco Use Types Packs/Day Years Used Date Smoking Tobacco: Never Assessed Comments Unknown Sex and Gender Information Value Date Recorded Sex Assigned at Not on file Legal Sex Female 6:13 AM FULFILLMENT REPRESENTATIVE Gender Identity Not on file Sexual Orientation Not on file documented as of this encounter Plan of Treatment Not on file documented as of this encounter Visit Diagnoses Diagnosis Acute hepatitis C without mention of hepatic coma(070.51)- Primary Acute hepatitis C without mention of hepatic coma documented in this encounter Care Teams Managing Partner [employer] Relationship Specialty Start Date End Date Smith Martínez DO [address] [place] [address] PCP - General Internal Medicine 08/06/18 documented as of this encounter
--- OUTSIDE RECORDS SUMMARY | 2025-06-18 11:09 | XMS_ITS | Encounter Summary ---
Author Organization [facility] Address [address] [place] [address] Care Team Providers Care Software Developer Name Role Phone Smith Martínez DO Primary Care Provide r Encounter Details Date Type Department Care Team (Latest Contact Info) Description 12/07/2002 Outpatient [facility] Gastroenterology[address] [place] [address] Nilton Samaniego MD [address] [facility] [address] [place] [address] DIARRHEA NOS (Primary Dx) Social History Tobacco Use Types Packs/Day Years Used Date Smoking Tobacco: Never Assessed Comments Unknown Sex and Gender Information Value Date Recorded Sex Assigned at Not on file Legal Sex Female 6:13 AM AMERICAN INDIAN STUDIES PROFESSOR Gender Identity Not on file Sexual Orientation Not on file documented as of this encounter Plan of Treatment Not on file documented as of this encounter Visit Diagnoses Diagnosis Diarrhea- Primary documented in this encounter Care Teams Software Developer Relationship Specialty Start Date End Date Smith Martínez DO [address] [facility] [address] [place] [address] PCP - General Internal Medicine 08/06/18 documented as of this encounter
--- OUTSIDE RECORDS SUMMARY | 2025-06-18 11:09 | XMS_ITS | Encounter Summary ---
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) Social History Tobacco Use Types Packs/Day Years Used Date Smoking Tobacco: Never Assessed Comments Unknown Sex and Gender Information Value Date Recorded Sex Assigned at Not on file Legal Sex Female 6:13 AM HOME THEATRE TECHNICIAN Gender Identity Not on file Sexual Orientation Not on file documented as of this encounter Plan of Treatment Not on file documented as of this encounter Visit Diagnoses Diagnosis Cirrhosis of liver without mention of alcohol (CMS/HCC)- Primary Cirrhosis of liver without mention of alcohol documented in this encounter Care Teams Urgent Care Nurse Practitioner Relationship Specialty Start Date End Date Smith Martínez DO [address] [place] [address] PCP - General Internal Medicine 08/06/18 documented as of this encounter
--- OUTSIDE RECORDS SUMMARY | 2025-06-18 11:09 | XMS_ITS | Encounter Summary ---
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
--- OUTSIDE RECORDS SUMMARY | 2025-06-18 11:09 | XMS_ITS | Encounter Summary ---
Author Organization [facility] Address [address] [place] [address] Care Team Providers Care Electronics Instructor Name Role Phone Smith Martínez Primary [...] file Legal Sex Female 6:[address]PERINTENDENT Gender Identity Not on file Sexual Orientation [...] the insertion of a 7 cm 18-gauge [employer] centesis catheter, through which approximately 6800 mL [...] CDT) PTT 38.0(H) 22.5 - 36.5 Secs [facility] [...] Goal INR 3.0; range 2.5 - 3.5 POST-TN Goal INR 2.5; range 2.0 - 3.0 or Goal 3.0; range 2.5 - 3.5 Atrial Fibrillation Goal INR 2.5; range 2.0 - 3.0 Ischemic Stroke Goal INR 2.5; range 2.0 - 3.0 For additional information see Guidelines for Anticoagulation available from the pharmacy James Matos [phone] PROTIME 17.5(H) 12.8 - 15.8 Secs [facility] Comment:As of 2007 not e change in normal range. Blood specimen (specimen) 04/28/2008 12:13 PM CDT 04/28/2008 12:17 PM CDT Christiano Ramírez MD HEMATOLOGY ORDERABLES Edited Performing Organization Address City/[facility] Co de Phone Number INTERFACE SYSTEM Refer to clinic/hospital department [facility] CLIA# [id number] [address] [place] [address] * (ABNORMAL) PLATELET COUNT (04/28/2008 12:13 PM CDT) PLATELETS 51(L) 140 - 440 K/ul [facility] Blood specimen (specimen) 04/28/2008 12:13 PM CDT 04/28/2008 12:17 PM CDT Christiano Ramírez MD HEMATOLOGY ORDERABLES Final Res ult Performing Organization Address [facility] de Phone Number INTERFACE SYSTEM Refer to clinic/hospital department [facility] CLIA# [id number] [facility] [place] [address] documented in this encounter Visit Diagnoses Diagnosis [...] tissue documented in this encounter Care Teams Electronics Instructor Relationship Specialty Start Date End Date Smith Martínez DO [address] [address] PCP - General Internal Medicine 08/06/18 documented as of this encounter
--- OUTSIDE RECORDS SUMMARY | 2025-06-18 11:09 | XMS_ITS | Encounter Summary ---
Author Organization [facility] Address [address] [place] [address] Care Team Providers Care License Clerk Name Role Phone Smith Martínez DO Primary Care Provide r Encounter Details Date Type Department Care Team ([facility] Contact Info) Description 12/07/2003 Outpatient Historical [facility] Ligia Parra, COMPLETION SUPERVISOR [address] [address] Social History Tobacco Use Types Packs/Day Years Used Date Smoking Tobacco: Never Assessed Comments Unknown Sex and Gender Information Value Date Recorded Sex Assigned at Not on file 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
--- OUTSIDE RECORDS SUMMARY | 2025-06-18 11:09 | XMS_ITS | Encounter Summary ---
Author Organization [facility] Address [address] [place] [address] Care Team Providers Care Plater Supervisor Name Role Phone Smith Martínez DO Primary Care Provide r Encounter Details Date Type Department Care Team (Latest Contact Info) Description 12/07/2002 Outpatient Historical [facility] [place] [address] [place] [address] Nilton Samaniego MD [address] [facility] [address] [place] [address] DIARRHEA NOS (Primary Dx) Social History Tobacco Use Types Packs/Day Years Used Date Smoking Tobacco: Never Assessed Comments Unknown Sex and Gender Information Value Date Recorded Sex Assigned at Not on file Legal Sex Female 6:13 AM 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
--- OUTSIDE RECORDS SUMMARY | 2025-06-18 11:09 | XMS_ITS | Encounter Summary ---
Author Organization [facility] Address [address] [place] [address] Care Team Providers Care Vehicle Painter Name Role Phone MartínezSmith nowakhaniel Primary Care Provide r Reason for Referral * Outpatient Services (Routine) - Closed Specialty Diagnoses / Procedures Referred By Alfredo smith Referred To Contact Diagnoses Other screening mammogram Procedures MAMMO DIGITAL SCREEN BILAT Ligia Parra NP [address] [address] Phone: tel: fax: Referral ID Status Reason Start Date Expiration Date Visits Re quested Visits Authorized [id number] Closed 05/10/2010 11/06/2010 1 1 Encounter Details Date Type Department Care Team (Late st Contact Info) Description 05/10/2010 Ancillary Orders [facility] [address] [address] Ligia Parra DIETARY CLERK [address] [address] Other Screening Mammogram Social History Tobacco Use Types Packs/Day Years Used Date Smoking Tobacco: Never Alcohol Use Standard Drinks/Week Comments No 0 (1 standard drink = 0.6 oz pur e alcohol) Comments No Sex and Gender Information Value Date Recorded Sex Assigned at Not on file 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
--- OUTSIDE RECORDS SUMMARY | 2025-06-18 11:09 | XMS_ITS | Encounter Summary ---
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 Comment:As of 2007 not e change in normal range. INR 1.4 [facility] [...] from the pharmacy Lucy Rangel Pharm D. [phone] Blood specimen (specimen) 04/14/2008 9:13 AM CDT 04/14/2008 9:15 AM CDT us Christiano Ramírez MD HEMATOLOGY ORDERABLES Final Res ult Performing Organization Address [facility] Phone Number INTERFACE SYSTEM Refer to clinic/hospital department [facility] CLIA# [id number] [address] [place] [address] * (ABNORMAL) PLATELET COUNT (04/14/2008 9:13 AM CDT) PLATELETS 45(L) 140 - [address] [facility] Blood specimen (specimen) 04/14/2008 9:13 AM CDT 04/14/2008 9:15 AM CDT Christiano Ramírez MD HEMATOLOGY ORDERABLES Final Res ult Performing Organization Address [facility] Phone Number INTERFACE SYSTEM Refer to clinic/[facility] CLIA# [id number] [address] [place] [address] * (ABNORMAL) PTT (04/14/2008 9:13 AM CDT) PTT 39.4(H) 22.5 - 36.[address] [facility] [...] ult INTERFACE SYSTEM Refer to clinic/hospital department 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
--- OUTSIDE RECORDS SUMMARY | 2025-06-18 11:09 | XMS_ITS | Encounter Summary ---
Author Organization 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
--- OUTSIDE RECORDS SUMMARY | 2025-06-18 11:09 | XMS_ITS | Encounter Summary ---
Author Organization [facility] Address [address] [place] [address] Care Team Providers Care Power And Recovery Superintendent Name Role Phone Smith Martínez DO Primary Care Provide r Encounter Details Date Type Department Care Team (Latest Contact Info) Description 10/01/2006 Outpatient [facility] [address] [place] [address] Aristides Herzog MD NO ADDRESS ON FILE Impetigo Herpetiformis (Primary Dx); Benign Amandeep Skin Trunk Social History Tobacco Use Types Packs/Day Years Used Date Smoking Tobacco: Never Assessed Comments Unknown Sex and Gender Information Value Date Recorded Sex Assigned at Not on file Legal Sex Female 6:13 AM RECREATIONAL ASSISTANT Gender Identity Not on file Sexual Orientation Not on file documented as of this encounter Plan of Treatment Not on file documented as of this encounter Visit Diagnoses Diagnosis Impetigo herpetiformis- Primary Benign amandeep skin trunk Benign neoplasm of skin of trunk, except scrotum documented in this encounter Care Teams Power And Recovery Superintendent Relationship Specialty Start Date End Date Smith Martínez DO [address] [facility] 1 [place] [phone] PCP - General Internal Medicine 08/06/18 documented as of this encounter
--- OUTSIDE RECORDS SUMMARY | 2025-06-18 11:09 | XMS_ITS | Encounter Summary ---
Author Organization [facility] Address [address] [place] [address] Care Team Providers Care Press Tool Maker Name Role Phone MartínezSmith nowak Benedict Primary Care Provide r Reason for Referral * Outpatient Services (Routine) - Closed Specialty Diagnoses / Procedures Referred By Alfredo smith Referred To Contact Diagnoses Other screening mammogram Procedures MAMMO DIGITAL SCREEN BILAT Ligia Parra, SERVICE PLUMBER [address] [address] Phone: tel: fax: [facility] Pre-Registration [place] CALL TO MAKE APPOINTMENT ONLY [address] [place] [address] Phone: tel: fax: Referral ID Status Reason Start Date Expiration Date Visits Re quested Visits Authorized [id number] Closed 03/10/2012 03/10/2013 1 1 Encounter Details Date Type Department Care Team (Late st Contact Info) Description 03/10/2012 Ancillary Orders [facility] Pre-Registration [place] CALL TO MAKE APPOINTMENT ONLY [address] [place] [address] Ligia Parra SERVICE PLUMBER [address] [address] Other screening mammogram Social History Tobacco Use Types Packs/Day Years Used Date Smoking Tobacco: Never Alcohol Use Standard Drinks/Week Comments No 0 (1 standard drink = 0.6 oz pur e alcohol) Comments No Sex and Gender Information Value Date Recorded Sex Assigned at Not on file Legal Sex Female 6:13 AM UROLOGIC NURSE Gender Identity Not on file Sexual Orientation Not on file documented as of this encounter Plan of Treatment Not on file documented as of this encounter Results * MAMMO DIGITAL SCREEN BILAT (04/16/2012 11:15 AM CDT) Anatomical Region Laterality Modality Breast Bilateral Mammography 04/16/2012 11:0 5 AM CDT Impressions 04/21/2012 2:47 PM CDT IMPRESSION: Annual screening mammogram. JT/valdo - uploaded from [address] - Narrative 04/21/2012 2:47 PM CDT REASON [...] from Power Scribe - us Ligia Parra SERVICE PLUMBER MAMMO ORDERABLES Final Result documented in this encounter Visit Diagnoses Diagnosis Other screening mammogram Other screening mammogram documented in this encounter Care Teams Press Tool Maker Relationship Specialty Start Date End Date Smith Martínez DO [address] [address] PCP - General Internal Medicine 08/06/18 documented as of this encounter
--- OUTSIDE RECORDS SUMMARY | 2025-06-18 11:09 | XMS_ITS | Encounter Summary ---
Author Organization [facility] Address [address] [place] [address] Care Team Providers Care Senior Clinical Study Manager Name Role Phone Smith Martínez DO Primary Care Provide r Encounter Details Date Type Department Care Team (Latest Contact Info) Description 04/16/2006 Outpatient [facility] Gastroenterology- [address] [place] [address] Sloan Vickers MD [address] [place] [address] [address] [place] [address] Esophageal Varices without Mention of Bleeding (CMS/HCC) (Primary Dx); Cirrhosis of Liver without Mention of Alcohol (CMS/HCC) Social History Tobacco Use Types Packs/Day Years Used Date Smoking Tobacco: Never Assessed Comments Unknown Sex and Gender Information Value Date Recorded Sex Assigned at Not on file Legal Sex Female 6:13 AM 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
--- OUTSIDE RECORDS SUMMARY | 2025-06-18 11:09 | XMS_ITS | Encounter Summary ---
Author Organization [facility] Address [address] [place] [address] Care Team Providers Care Energy Trading Analyst Name Role Phone Smith Martínez DO Primary Care Provide r Encounter Details Date Type Department Care Team (Latest Contact Info) Description 08/12/2006 Outpatient [facility] Gastroenter[address] [place] [address] Christiano Ramírez MD NO ADDRESS ON FILE Chronic Hepatitis C without Mention of Hepatic Coma (CMS/HCC) (Primary Dx) Social History Tobacco Use Types Packs/Day Years Used Date Smoking Tobacco: Never Assessed Comments Unknown Sex and Gender Information Value Date Recorded Sex Assigned at Not on file Legal Sex Female 6:13 AM QUALITY ASSURANCE COORDINATOR Gender Identity Not on file Sexual Orientation Not on file documented as of this encounter Plan of Treatment Not on file documented as of this encounter Visit Diagnoses Diagnosis Chronic hepatitis C without mention of hepatic coma (CMS/HCC)- Primary Chronic hepatitis C without mention of hepatic coma documented in this encounter Care Teams Energy Trading Analyst Relationship Specialty Start Date End Date Smith Martínez DO [address] [facility] 1 [place] [address] PCP - General Internal Medicine 08/06/18 documented as of this encounter
--- OUTSIDE RECORDS SUMMARY | 2025-06-18 11:09 | XMS_ITS | Encounter Summary ---
Author Organization [facility] Address [address] [place] [address] Care Team Providers Care Senior Medical Technologist Name Role Phone Smith Martínez DO Primary Care Provide r Encounter Details Date Type Department Care Team (Latest Contact Info) Description 12/23/2003 Outpatient Historical [facility] [place] [address] [place] [address] Jakub Berry MD NO ADDRESS ON FILE APLASTIC ANEMIAS NEC (Primary Dx) Social History Tobacco Use Types Packs/Day Years Used Date Smoking Tobacco: Never Assessed Comments Unknown Sex and Gender Information Value Date Recorded Sex Assigned at Not on file Legal Sex Female 6:13 AM 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
--- OUTSIDE RECORDS SUMMARY | 2025-06-18 11:09 | XMS_ITS | Encounter Summary ---
Author Organization [facility] Address [address] [place] [address] Care Team Providers Care Reaming Machine Operator Name Role Phone Smith Martínez DO Primary Care Provide r Encounter Details Date Type Department Care Team (Latest Contact Info) Description 08/05/2006 Outpatient Historical [facility] Gen Spec Surg [place] [address] [facility] [address] [place] [address] Mary Ruiz, MANUFACTURING TECH NO ADDRESS ON FILE Unilat Ing Hernia (Primary Dx); Follow-Up Examination, Following Unspecified Surgery Social History Tobacco Use Types Packs/Day Years Used Date Smoking Tobacco: Never Assessed Comments Unknown Sex and Gender Information Value Date Recorded Sex Assigned at Not on file Legal Sex Female 6:13 AM FRUIT SORTER Gender Identity Not on file Sexual Orientation Not on file documented as of this encounter Plan of Treatment Not on file documented as of this encounter Visit Diagnoses Diagnosis Inguinal hernia without mention of obstruction or gangrene, unilateral or unspecified, (not specified as recurrent)- Primary Follow-up examination, following unspecified surgery documented in this encounter Care Teams Reaming Machine Operator Relationship Specialty Start Date End Date Smith Martínez DO [address] [place] [address] PCP - General Internal Medicine 08/06/18 documented as of this encounter
--- OUTSIDE RECORDS SUMMARY | 2025-06-18 11:09 | XMS_ITS | Encounter Summary ---
Author Organization [facility] Address [address] [facility] Attn: [place] [address] Care Team Providers Care Head Field Hockey Coach Name Role Phone Smith Martínez DO Primary [...] on file Legal Sex Female 6:13 AM COMMERCIAL SUBCONTRACTOR Gender Identity Not on file Sexual Orientation Not on file documented as of this encounter Plan of Treatment Not on file documented as of this encounter Procedures Procedure Name Priority Date/Time Associated Diagnosis Comments ALPHA FETOPROTEIN TUMOR MARKER Routine 08/12/2006 10:08 AM COMMERCIAL SUBCONTRACTOR documented in this encounter Results * ALPHA FETOPROTEIN TUMOR MARKER (08/12/2006 10:08 AM COMMERCIAL SUBCONTRACTOR) ALPHA FETOPROTEIN MATERNAL 4.3 <=8.5 ng/mL INTERFACE SYSTEM 08/12/2006 10:0 8 AM COMMERCIAL SUBCONTRACTOR us Christiano Ramírez MD CHEMISTRY ORDERABLES Final Resu lt INTERFACE SYSTEM Refer to clinic/hospital department documented in this encounter Visit Diagnoses Not on filedocumented in this encounter Care Teams Head Field Hockey Coach Relationship Specialty Start Date End Date Smith Martínez DO [address] [phone] PCP - General Internal Medicine 08/06/18 documented as of this encounter
--- OUTSIDE RECORDS SUMMARY | 2025-06-18 11:09 | XMS_ITS | Encounter Summary ---
Author Organization [facility] Address [address] [place] [address] Care Team Providers Care Dent Remover Name Role Phone Smith Martínez DO Primary Care Provide r Encounter Details Date Type Department Care Team (Latest Contact Info) Description 03/18/2005 Outpatient [facility] Gastroenterology[address] [place] [address] Sloan Vickers MD [address] [place] [address] [address] [place] [address] VIR HEP NEC W/O COMA W HEP C CHRON (CMS/HCC) (Primary Dx); CIRRHOSIS OF LIVER NOS (CMS/HCC) Social History Tobacco Use Types Packs/Day Years Used Date Smoking Tobacco: Never Assessed Comments Unknown Sex and Gender Information Value Date Recorded Sex Assigned at Not on file Legal Sex Female 6:13 AM PHYSICS PROFESSOR Gender Identity Not on file Sexual [...] alcohol documented in this encounter Care Teams Dent Remover Relationship Specialty Start Date End Date Smith Martínez DO [address] [place] [address] PCP - General Internal Medicine 08/06/18 documented as of this encounter
--- OUTSIDE RECORDS SUMMARY | 2025-06-18 11:09 | XMS_ITS | Encounter Summary ---
Author Organization [facility] Address [address] [place] [address] Care Team Providers Care Theater Company Producer Name Role Phone Smith Martínez DO Primary Care Provide r Encounter Details Date Type Department Care Team (Latest Contact Info) Description 01/09/2005 Outpatient [facility] [address] [place] [address] Bill Manjarrez MD [address] [address] HEPATITIS NOS (Primary Dx); OSTEOPOROSIS NOS Social History Tobacco Use Types Packs/Day Years Used Date Smoking Tobacco: Never Assessed Comments Unknown Sex and Gender Information Value Date Recorded Sex Assigned at Not on file Legal Sex Female 6:13 AM TRAFFIC SIGNAL MECHANIC Gender Identity Not on file Sexual Orientation Not on file documented as of this encounter Plan of Treatment Not on file documented as of this encounter Visit Diagnoses Diagnosis Hepatitis, unspecified- Primary Osteoporosis, unspecified documented in this encounter Care Teams Theater Company Producer Relationship Specialty Start Date End Date Smith Martínez DO [address] [place] [address] PCP - General Internal Medicine 08/06/18 documented as of this encounter
--- OUTSIDE RECORDS SUMMARY | 2025-06-18 11:09 | XMS_ITS | Encounter Summary ---
Author Organization [facility] Address [address] [place] [address] Care Team Providers Care Shirt Bander Name Role Phone Smith Martínez DO Primary Care Provide r Encounter Details Date Type Department Care Team (Latest Contact Info) Description 12/20/2003 Outpatient Historical [facility] Cancer and Hematology [address] [place] [address] [address] [place] [address] Jakub Berry MD NO ADDRESS ON FILE APLASTIC ANEMIAS NEC (Primary Dx); SPLENOMEGALY Social History Tobacco Use Types Packs/Day Years Used Date Smoking Tobacco: Never Assessed Comments Unknown Sex and Gender Information Value Date Recorded Sex Assigned at Not on file Legal Sex Female 6:13 AM PRODUCTION SAMPLER Gender Identity Not on file Sexual Orientation Not on file documented as of this encounter Plan of Treatment Not on file documented as of this encounter Visit Diagnoses Diagnosis Other specified aplastic anemias- Primary Splenomegaly documented in this encounter Care Teams Shirt Bander Relationship Specialty Start Date End Date Smith Martínez DO [address] [place] [address] PCP - General Internal Medicine 08/06/18 documented as of this encounter
--- OUTSIDE RECORDS SUMMARY | 2025-06-18 11:09 | XMS_ITS | Encounter Summary ---
Author Organization [facility] Address [address] [place] [address] Care Team Providers Care Environment Artist Name Role Phone Smith Martínez Primary Care Provide r Encounter Details Date Type Department Care Team (Late st Contact Info) Description 08/27/2008 Outpatient Historical HIS IN BED Ed, Physician NO ADDRESS ON FILE Loki Wesley MD [address] [place] [address] Christiano Ramírez MD NO ADDRESS ON FILE Abdominal Pain, Unspecified Site Social History Tobacco Use Types Packs/Day Years Used Date Smoking Tobacco: Never Alcohol Use Standard Drinks/Week Comments No 0 (1 standard drink = 0.6 oz pur e alcohol) Comments No Sex and Gender Information Value Date Recorded Sex Assigned at Not on file Legal Sex Female 6:13 AM CHAPLAINCY Gender Identity Not on file Sexual Orientation Not on file documented as of this encounter Plan of Treatment Not on file documented as of this encounter Procedures Procedure Name Priority Date/Time Associated Diagnosis Comments BASIC METABOLIC PANEL Stat 08/29/2008 9:40 AM CHAPLAINCY C. DIFFICILE DETECTION Routine 9:32 PM CHAPLAINCY STOOL CULTURE W/SHIGA TOXIN Routine 08/28/2008 9:32 PM CHAPLAINCY BASIC METABOLIC PANEL Routine 08/28/2008 3:56 AM CHAPLAINCY BODY FLUID CULTURE WITH GRAM STAIN Stat 08/27/2008 8:40 PM CHAPLAINCY CELL COUNT WITH DIFFERENTIAL, BODY FLUID Stat 08/27/2008 8:31 PM CHAPLAINCY URINALYSIS MICROSCOPY ONLY Stat 08/27/2008 6:50 PM CHAPLAINCY URINALYSIS W/REFLEX MICROSCOPIC Stat 08/27/2008 6:[address] ABDOMEN PELVIS WO CONTRAST Routine 08/27/2008 6:39 PM CHAPLAINCY US RIGHT UPR QUADRANT Routine 08/27/2008 4:41 PM CHAPLAINCY XR CHEST PA AND LATERAL 2 VW Routine 08/27/2008 3:11 PM CHAPLAINCY CBC WITH DIFFERENTIAL Stat 08/27/2008 2:18 PM CHAPLAINCY COMPREHENSIVE METABOLIC PANEL Stat 08/27/2008 2:18 PM CHAPLAINCY PT AND APTT Stat 08/27/2008 2:05 PM CHAPLAINCY LIPASE Stat 08/27/2008 2:05 PM CHAPLAINCY AMYLASE Stat 08/27/2008 2:05 PM CHAPLAINCY documented in this encounter Results * (ABNORMAL) BASIC METABOLIC PANEL (08/29/2008 9:40 AM CHAPLAINCY) CREATININE 4.2(H) 0.7 - 1.2 mg/dL [facility] CALCIUM 8.6 8.4 - 10.5 mg/dL [facility] GLUCOSE 174(H) 70 - 110 mg/dL [facility] CHLORIDE 101 95 - 110 mEq/L [facility] ANION GAP 12 9 - 20 mEq/L [facility] SODIUM 123(AA) 136 - 145 mEq/L [facility] Comment: Potentially critical/toxic NA called by kristin to carlos, with verbal read back, at 08/29/08 10:20. BUN 89(H) 7 - 17 mg/dL [facility] CO2 15(L) 22 - 32 mmol/l [facility] POTASSIUM 4.6 3.5 - 5.0 mEq/L [facility] OSMOLALITY, CALCULATED 289 275 - 295 mOsm/Kg [facility] Blood specimen (specimen) 08/29/2008 9:40 AM CHAPLAINCY 08/29/2008 9:48 AM CHAPLAINCY Christiano Ramírez MD CHEMISTRY ORDERABLES Final Resu lt Performing Organization Address [facility] [[email or web address]] de Phone Number INTERFACE SYSTEM Refer to clinic/hospital department [facility] CLIA# [id number] [address] [place] [address] * STOOL CULTURE (08/28/2008 9:32 PM CHAPLAINCY) FINAL REPORT Negative for Salmonella/Sh igella/Vibrio / Campylobacter /E. coli 0157:H7 (Note: If Yersinia culture or Shiga toxin testing for E.coli indicated, these require special orders and additional samples be submitted.) -------- No gram negative sofie present INTERFACE SYSTEM 08/28/2008 9:32 PM CHAPLAINCY 08/28/2008 10:02 PM CHAPLAINCY Christiano Ramírez MD MICROBIOLOGY - GENERAL ORDERABL ES Final Result Performing Organization Address [facility]/ZIP Co de Phone Number INTERFACE SYSTEM Refer to clinic/hospital department * CLOSTRIDIUM DIFFICILE TOXIN (08/28/2008 9:32 PM CHAPLAINCY) C DIFFICILE TOXIN Negative Negative [facility] 08/28/2008 9:32 PM CHAPLAINCY 08/28/2008 10:02 PM CHAPLAINCY Christiano Ramírez MD MICROBIOLOGY - GENERAL ORDERABL ES Final Result Performing Organization Address [facility] de Phone Number INTERFACE SYSTEM Refer to clinic/[facility] department [facility] CLIA# [id number] [address] [place] [address] * (ABNORMAL) BASIC METABOLIC PANEL (08/28/2008 3:56 AM CHAPLAINCY) [facility] POTASSIUM 4.9 3.5 - 5.0 mEq/L [facility] OSMOLALITY, CALCULATED 290 275 - 295 mOsm/Kg [facility] CREATININE 4.0(H) 0.7 - 1.2 mg/dL [facility] CALCIUM 8.0(L) 8.4 - 10.5 mg/dL [facility] GLUCOSE 109 70 - 110 mg/dL [facility] CHLORIDE 101 95 - 110 mEq/L [facility] ANION GAP 14 9 - 20 mEq/L [facility] SODIUM 125(L) 136 - 145 mEq/L [facility] BUN 90(H) 7 - 17 mg/dL [facility] CO2 15(L) 22 - 32 mmol/l [facility] Blood specimen (specimen) 08/28/2008 3:56 AM CHAPLAINCY 08/28/2008 4:30 AM CHAPLAINCY Christiano Ramírez MD CHEMISTRY ORDERABLES Final Resu lt Performing Organization Address [facility] [[email or web address]] de Phone Number INTERFACE SYSTEM Refer to clinic/hospital department [facility] CLIA# [id number] [address] [place] [address] * BODY FLUID CULTURE WITH GRAM STAIN (08/27/2008 8:40 PM CHAPLAINCY) Pathologist [facility] GRAM STAIN No organisms observed Moderate (6-10/oil hpf) PMN WBC's observed NOTE: Specimen in heparin retrieved for direct gram stain. INTERFACE SYSTEM FINAL REPORT Isolated from broth media: Gram positive cocci Identified as: Beta Streptococcus, group B INTERFACE SYSTEM SUSCEPTIBILITY PERFORMED ON STREPTOCOCCUS GROUP B INTERFACE SYSTEM 08/27/2008 8:40 PM CHAPLAINCY 08/27/2008 9:55 PM CHAPLAINCY Narrative INTERFACE SYSTEM - 08/28/2008 9:27 AM CHAPLAINCY ascites Organism Antibiotic Method Susceptibility Streptococcus group [...] Organization Address [facility] Phone Number INTERFACE SYSTEM Refer to clinic/hospital department * CELL COUNT WITH DIFFERENTIAL, BODY FLUID (08/27/2008 8:31 PM CHAPLAINCY) LYMPHOCYTE, FLD 9 % [facility] COLOR, FLD Yellow [facility] NEUTROPHILS, FLD 76 % [facility] SOURCE FLUID Paracentesis [facility] MONOCYTE, FLD 14 % [facility] BANDS, FLD 1 % [facility] WBC, FLD 3,387 /mm3 [facility] APPEARANCE, BODY FLUID Slightly Cloudy [facility] RBC, FLD 690 /mm3 [facility] 08/27/2008 8:31 PM CHAPLAINCY 08/27/2008 9:00 PM CHAPLAINCY us Loki Wesley MD BODY FLUIDS AND STOOLS Edite d Performing Organization Address [facility] [[email or web address]] de Phone Number INTERFACE SYSTEM Refer to clinic/hospital department [facility] CLIA# [id number] [address] [place] [address] * (ABNORMAL) URINALYSIS MICROSCOPY ONLY (08/27/2008 6:50 PM CHAPLAINCY) HYALINE CAST 11-15(A) 0 - 2 [facility] WBC URINE 0-2 0 - 2 [facility] BACTERIA UA Few(A) None Seen [facility] RBC UA 0-2 0 - 2 [facility] Urine specimen (specimen) 08/27/2008 6:50 PM CHAPLAINCY 08/27/2008 6:50 PM CHAPLAINCY Narrative INTERFACE SYSTEM - 08/27/2008 7:11 PM CHAPLAINCY Microscopic ordered by policy Juaquin Osman MD URINE ORDERABLES Final Result Performing Organization Address [facility] [[email or web address]] de Phone Number INTERFACE SYSTEM Refer to clinic/hospital department [facility] CLIA# [id number] [address] [place] [address] * (ABNORMAL) URINALYSIS (08/27/2008 6:50 PM CHAPLAINCY) CLARITY UA Clear Clear [facility] SPECIFIC GRAVITY UA 1.020 <=1.005 [facility] GLUCOSE UA NEGATIVE NEGATIVE [facility] PH UA 5.0 5.0 - 9.0 [facility] BILIRUBIN UA NEGATIVE NEGATIVE [facility] LEUKOCYTE ESTERASE UA NEGATIVE NEGATIVE [facility] KETONES UA NEGATIVE NEGATIVE [facility] MICRO EXAM Yes(A) No [facility] COLOR UA Yellow Straw [facility] PROTEIN UA NEGATIVE NEGATIVE [facility] BLOOD UA Trace(A) NEGATIVE [facility] NITRITE UA NEGATIVE NEGATIVE [facility] UROBILINOGEN UA 0.2 0.2 [facility] Urine specimen (specimen) 08/27/2008 6:50 PM CHAPLAINCY 08/27/2008 6:50 PM CHAPLAINCY us Juaquin Osman MD URINE ORDERABLES Final Result Performing Organization Address [facility] Co de Phone Number INTERFACE SYSTEM Refer to clinic/hospital department [facility] CLIA# [id number] [address] [place] [address] * CT ABDOMEN PELVIS WO CONTRAST (08/27/2008 6:39 PM CHAPLAINCY) Anatomical Region Laterality Modality Abdomen Other 08/27/2008 6:39 PM CHAPLAINCY Narrative 08/28/2008 7:45 AM CHAPLAINCY Exam: CT Abdomen, Pelvis w/o Date/Time of [...] By: MD Juancho StMD Date Signed: 08/28/08 [facility] Procedure Note Juancho St MD - 08/28/2008 [...] US RIGHT UPR QUADRANT (08/27/2008 4:41 PM CHAPLAINCY) Anatomical Region Laterality Modality Abdomen Other 08/27/2008 4:41 PM CHAPLAINCY Narrative 08/28/2008 7:42 AM CHAPLAINCY Exam: US-RUQ Date/Time of Exam: Aug 27, [...] Juancho St Electronically Signed By: MD Juancho StNC Date Signed: 08/28/08 SDM us Loki Wesley MD ORDERABLES Final Result * XR CHEST PA AND LATERAL (08/27/2008 3:11 PM CHAPLAINCY) Anatomical Region Laterality Modality Chest Other 08/27/2008 3:11 PM CHAPLAINCY Narrative 08/28/2008 10:19 AM CHAPLAINCY Exam: Chest - PA and Lateral Date/Time [...] By: Michelet Johnson M.D. Date Signed: 08/28/08 [facility] Procedure Note Michelet Johnson MD - 08/28/2008 [...] (ABNORMAL) CBC WITH DIFFERENTIAL (08/27/2008 2:18 PM CHAPLAINCY) LYMPHOCYTES 5.8(L) 24.0 - 44.0 % [facility] MCHC 35.0 30.0 - 35.0 g/dL [facility] LYMPHOCYTE ABSOLUTE 0.5(L) 1.2 - 4.0 K/ul [facility] MCV 83.0(L) 84.0 - 103.0 Fl [facility] MPV 10.2 8.9 - 12.8 Fl [facility] BASOPHILS ABSOLUTE 0.0 0.0 - 0.2 K/ul [facility] BASOPHILS 0.1 0.0 - 1.0 % [facility] HEMOGLOBIN 10.4(L) 12.0 - 16.0 g/dL [facility] RDW 15.2(H) 11.0 - 14.5 % [facility] MONOCYTE ABSOLUTE 0.7(H) 0.1 - 0.6 K/ul [facility] MONOCYTES 7.7 2.0 - 10.0 % [facility] WBC 9.3 4.8 - 10.8 K/ul [facility] MCH 29.1 27.0 - 34.0 pg [facility] NEUTROPHIL ABSOLUTE 8.0 2.0 - 8.0 K/ul [facility] NEUTROPHILS 86.1(H) 42.2 - 75.2 % [facility] HEMATOCRIT 29.7(L) 36.0 - 46.0 % [facility] EOSINOPHILS 0.3 0.0 - 7.0 % [facility] PLATELETS 80(L) 140 - 440 K/ul [facility] PERIPHERAL BLOOD SMEAR REVIEW Automated Diff [facility] EOSINOPHIL ABSOLUTE 0.0 0.0 - 0.7 K/ul [facility] RBC 3.58(L) 4.20 - 5.40 Mil/ul [facility] Blood specimen (specimen) 08/27/2008 2:18 PM CHAPLAINCY 08/27/2008 2:27 PM CHAPLAINCY us Physician Sj Ed HEMATOLOGY ORDERABLES Final Resu lt INTERFACE SYSTEM Refer to clinic/hospital department [facility] CLIA# [id number] [address] [place] [address] * (ABNORMAL) COMPREHENSIVE METABOLIC PANEL (08/27/2008 2:18 PM CHAPLAINCY) ALKALINE PHOSPHATASE 73 25 - 100 U/L [facility] CREATININE 4.3(H) 0.7 - 1.2 mg/dL [facility] ALBUMIN/GLOBULIN RATIO 1.2 1.0 - 2.3 [facility] TOTAL PROTEIN 6.3 6.3 - 8.2 g/dL [facility] POTASSIUM 5.0 3.5 - 5.0 mEq/L [facility] GLUCOSE 104 70 - 110 mg/dL [facility] OSMOLALITY, CALCULATED 301(H) 275 - 295 mOsm/Kg [facility] BILIRUBIN TOTAL 1.5(H) 0.3 - 1.2 mg/dL [facility] CO2 15(L) 22 - 32 mmol/l [facility] AST 16 8 - 33 U/L [facility] BUN 90(H) 7 - 17 mg/dL [facility] GLOBULIN (CALC) 2.9 2.4 - 3.9 g/dL [facility] ALBUMIN 3.4(L) 3.5 - 5.0 g/dL [facility] CHLORIDE 100 95 - 110 mEq/L [facility] ANION GAP 21(H) 9 - 20 mEq/L [facility] ALT 20 4 - 36 IU/L [facility] SODIUM 131(L) 136 - 145 mEq/L [facility] CALCIUM 9.3 8.4 - 10.5 mg/dL [facility] Blood specimen (specimen) 08/27/2008 2:18 PM CHAPLAINCY 08/27/2008 2:38 PM CHAPLAINCY Physician Abhishek Ed CHEMISTRY ORDERABLES Edited Performing Organization Address [facility] Phone Number INTERFACE SYSTEM Refer to clinic/hospital department [facility] CLIA# [id number] [address] [place] [address] * AMYLASE (08/27/2008 2:05 PM CHAPLAINCY) AMYLASE 38 20 - 104 U/L [facility] Blood specimen (specimen) 08/27/2008 2:05 PM CHAPLAINCY 08/27/2008 2:50 PM CHAPLAINCY Loki Wesley MD CHEMISTRY ORDERABLES Final R esult Performing Organization Address [facility] Phone Number INTERFACE SYSTEM Refer to clinic/hospital department [facility] CLIA# [id number] [address] [place] [address] * LIPASE (08/27/2008 2:05 PM CHAPLAINCY) LIPASE 51 6 - 51 U/L [facility] Blood specimen (specimen) 08/27/2008 2:05 PM CHAPLAINCY 08/27/2008 2:50 PM CHAPLAINCY Loki Wesley MD CHEMISTRY ORDERABLES Final R esult Performing Organization Address [facility] Phone Number INTERFACE SYSTEM Refer to clinic/hospital [facility] CLIA# [id number] [address] [place] [address] * (ABNORMAL) PT AND APTT (08/27/2008 2:05 PM CHAPLAINCY) PTT 36.4 22.5 - 36.5 Secs [facility] Comment: Therapeutic Range: Hi-level PE/DVT heparin protocol 80.1 -95.0 sec Lo-level PE/DVT heparin protocol 67.1 - 80.0 sec Cardiac Heparin Protocol 67.1 - 85.0 sec Neuro Heparin Protocol 67.1 - 80.0 sec As of 11/12/2007 note change in APTT Normal Range. PROTIME 18.3(H) 12.8 - 15.8 Secs [facility] Comment:As of 2007 not e change in normal range. INR 1.4 [facility] Comment: [...] from the pharmacy Lucy Rangel, Pharm D. [phone] Blood specimen (specimen) 08/27/2008 2:05 PM CHAPLAINCY 08/27/2008 2:51 PM CHAPLAINCY Loki Wesley MD HEMATOLOGY ORDERABLES Edited INTERFACE SYSTEM Refer to clinic/hospital department [facility] CLIA# [id number] [address] [place] [address] documented in this encounter Visit Diagnoses Diagnosis Abdominal pain, unspecified site documented in this encounter Care Teams Environment Artist Relationship Specialty Start Date End Date Smith Martínez DO [address] [facility] [place] [address] [address] PCP - General Internal Medicine 08/06/18 documented as of this encounter
--- OUTSIDE RECORDS SUMMARY | 2025-06-18 11:09 | XMS_ITS | Encounter Summary ---
Author Organization [facility] Address [address] [place] [address] Care Team Providers Care Cap Maker Name Role Phone Smith Martínez DO Primary Care Provide r Encounter Details Date Type Department Care Team (Latest Contact Info) Description 09/10/[address] [facility] [place] [address] [place] [phone] Nilton Samaniego MD [address] [facility] [address] [place] [address] ESOPH VARICES W/O BLEED (CMS/HCC) (Primary Dx) Social History Tobacco Use Types Packs/Day Years Used Date Smoking Tobacco: Never Assessed Comments Unknown Sex and Gender Information Value Date Recorded Sex Assigned at Not on file Legal Sex Female 6:13 AM BUSINESS SEGMENT MANAGER Gender Identity Not on file Sexual Orientation Not on file documented as of this encounter Plan of Treatment Not on file documented as of this encounter Visit Diagnoses Diagnosis Esophageal varices without mention of bleeding- Primary documented in this encounter Care Teams Cap Maker Relationship Specialty Start Date End Date Smith Martínez DO [address] [place] [phone] PCP - General Internal Medicine 08/06/18 documented as of this encounter
--- OUTSIDE RECORDS SUMMARY | 2025-06-18 11:09 | XMS_ITS | Encounter Summary ---
Author Organization [facility] Address [address] [place] [address] Care Team Providers Care Manager Ecommerce Name Role Phone Smith Martínez DO Primary Care Provide r Encounter Details Date Type Department Care Team (Late st Contact Info) Description 08/29/2008 Outpatient [facility] [address] [place] [address] [facility] Social History Tobacco Use Types Packs/Day Years Used Date Smoking Tobacco: Never Alcohol Use Standard Drinks/Week Comments No 0 (1 standard drink = 0.6 oz pur e alcohol) Comments No Sex and Gender Information Value Date Recorded Sex Assigned at Not on file Legal Sex Female 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
--- OUTSIDE RECORDS SUMMARY | 2025-06-18 11:09 | XMS_ITS | Encounter Summary ---
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
--- OUTSIDE RECORDS SUMMARY | 2025-06-18 11:09 | XMS_ITS | Encounter Summary ---
Author Organization [facility] Address [address] [place] [address] Care Team Providers Care Liver Trimmer Name Role Phone Smith Martínez DO Primary Care Provide r Encounter Details Date Type Department Care Team ([facility] st Contact Info) Description 12/07/2003 Outpatient [facility] [address] [place] [address] Ligia Parra, SENIOR APPLICATION SECURITY CONSULTANT [address] [address] SCREENING MAMM-MAILG NEOPL-OTHER (Primary Dx) Social History Tobacco Use Types Packs/Day Years Used Date Smoking Tobacco: Never Assessed Comments Unknown Sex and Gender Information Value Date Recorded Sex Assigned at Not on file Legal Sex Female 6:13 AM DIRECTOR OCCUPATIONAL Gender Identity Not on file Sexual Orientation Not on file documented as of this encounter Plan of Treatment Not on file documented as of this encounter Visit Diagnoses Diagnosis Other screening mammogram- Primary documented in this encounter Care Teams Liver Trimmer Relationship Specialty Start Date End Date Smith Martínez DO [address] [facility] [address] [place] [address] PCP - General Internal Medicine 08/06/18 documented as of this encounter
--- OUTSIDE RECORDS SUMMARY | 2025-06-18 11:09 | XMS_ITS | Encounter Summary ---
Author Organization [facility] Address [address] [place] [address] Care Team Providers Care Carton Machine Operator Name Role Phone Smith Martínez [...] on file Legal Sex Female 6:13 AM LIEUTENANT GENERAL Gender Identity Not on file Sexual Orientation Not on file documented as of this encounter Plan of Treatment Not on file documented as of this encounter Procedures Procedure Name Priority Date/Time Associated Diagnosis Comments US GUIDED ASPIRATION Routine 08/10/2008 12:23 PM LIEUTENANT GENERAL PT AND APTT Stat 08/10/2008 10:43 AM LIEUTENANT GENERAL PLATELET COUNT Stat 08/10/2008 10:43 AM LIEUTENANT GENERAL documented in this encounter Results * US GUIDED ASPIRATION (08/10/2008 12:23 PM LIEUTENANT GENERAL) Anatomical Region Laterality Modality Other 08/10/2008 12:2 3 PM LIEUTENANT GENERAL Narrative 08/31/2008 4:19 PM LIEUTENANT GENERAL HISTORY: This is a patient referred from [...] insertion of a 7 cm 18 gauge AddMyBest centesis catheter through which approximately 5,000 mL [...] (ABNORMAL) PT AND APTT (08/10/2008 10:43 AM LIEUTENANT GENERAL) PTT 36.6(H) 22.5 - 36.5 Secs [facility] Comment: Therapeutic Range: Hi-level PE/DVT heparin protocol 80.1 -95.0 sec Lo-level PE/DVT heparin protocol 67.1 - 80.0 sec Cardiac Heparin Protocol 67.1 - 85.0 sec Neuro Heparin Protocol 67.1 - 80.0 sec As of 11/12/2007 note change in APTT Normal Range. PROTIME 19.2(H) 12.8 - 15.8 Secs [facility] Comment:As of 2007 not e change in normal range. INR 1.5 [facility] Comment: Expected Values for INR: DVT/PE Goal INR 2.5; range 2.0 - 3.0 Valve Replacement Tissue Goal INR 2.5; range 2.0 - 3.0 Mechanical Goal INR 3.0; range 2.5 - 3.5 POST-IN Goal INR 2.5; range 2.0 - 3.0 or Goal 3.0; range 2.5 - 3.5 Atrial Fibrillation Goal INR 2.5; range 2.0 - 3.0 Ischemic Stroke Goal INR 2.5; range 2.0 - 3.0 For additional information see Guidelines for Anticoagulation available from the pharmacy James Matos. [phone] Blood specimen (specimen) 08/10/2008 10:43 AM LIEUTENANT GENERAL 08/10/2008 10:45 AM LIEUTENANT GENERAL Christiano Ramírez MD HEMATOLOGY ORDERABLES Edited Performing Organization Address [facility] de Phone Number INTERFACE SYSTEM Refer to clinic/hospital department [facility] CLIA# [id number] [address] [place] [address] * (ABNORMAL) PLATELET COUNT (08/10/2008 10:43 AM LIEUTENANT GENERAL) PLATELETS 29(L) 140 - 440 K/ul [facility] Blood specimen (specimen) 08/10/2008 10:43 AM LIEUTENANT GENERAL 08/10/2008 10:45 AM LIEUTENANT GENERAL Christiano Ramírez MD HEMATOLOGY ORDERABLES Final Res ult Performing Organization Address [facility] Phone Number INTERFACE SYSTEM Refer to clinic/hospital department [facility] CLIA# [id number] [address] [place] [address] documented in this encounter Visit Diagnoses Diagnosis Other ascites documented in this encounter Care Teams Carton Machine Operator Relationship Specialty Start Date End Date Smith Martínez DO [address] [address] PCP - General Internal Medicine 08/06/18 documented as of this encounter
--- OUTSIDE RECORDS SUMMARY | 2025-06-18 11:09 | XMS_ITS | Encounter Summary ---
Author Organization [facility] Address [address] [place] [address] Care Team Providers Care Marine Design Engineer Name Role Phone Smith Martínez DO Primary Care Provide r Encounter Details Date Type Department Care Team (Late st Contact Info) Description 12/20/2003 Outpatient Historical [facility] Cancer and Hematology [address] [place] [address] [address] [place] [address] Jakub Berry MD NO ADDRESS ON FILE Social History Tobacco Use Types Packs/Day Years Used Date Smoking Tobacco: Never Assessed Comments Unknown Sex and Gender Information Value Date Recorded Sex Assigned at Not on file 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 [address] [place] [address] PCP - General Internal Medicine 08/06/18 documented as of this encounter
--- OUTSIDE RECORDS SUMMARY | 2025-06-18 11:09 | XMS_ITS | Encounter Summary ---
Author Organization [facility] Address [address] [place] [address] Care Team Providers Care Drafting Engineer Name Role Phone Smith Martínez DO Primary Care Provide r Encounter Details Date Type Department Care Team (Latest Contact Info) Description 10/17/2006 Outpatient [facility] Dermatology- [place] [address] [place] [address] Aristides Herzog MD NO ADDRESS ON FILE Lichen Planus (Primary Dx) Social History Tobacco Use Types Packs/Day Years Used Date Smoking Tobacco: Never Assessed Comments Unknown Sex and Gender Information Value Date Recorded Sex Assigned at Not on file Legal Sex Female 6:13 AM LEDGE MAN Gender Identity Not on file Sexual Orientation Not on file documented as of this encounter Plan of Treatment Not on file documented as of this encounter Visit Diagnoses Diagnosis Lichen planus- Primary documented in this encounter Care Teams Drafting Engineer Relationship Specialty Start Date End Date Smith Martínez DO [address] [place] [address] PCP - General Internal Medicine 08/06/18 documented as of this encounter
--- OUTSIDE RECORDS SUMMARY | 2025-06-18 11:09 | XMS_ITS | Encounter Summary ---
Author Organization [facility] Address [address] [place] [address] Care Team Providers Care Stitchdown Toe Former Name Role Phone Smith Martínez DO Primary Care Provide r Encounter Details Date Type Department Care Team (Late st Contact Info) Description 07/01/2006 Outpatient Historical [facility] Gen Spec Surg [address] [address] Louie Hyman MD [address] [place] [address] Unilat Ing Hernia (Primary Dx) Social History Tobacco Use Types Packs/Day Years Used Date Smoking Tobacco: Never Assessed Comments Unknown Sex and Gender Information Value Date Recorded Sex Assigned at Not on file Legal Sex Female 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 1 [place] [address] PCP - General Internal Medicine 08/06/18 documented as of this encounter
--- OUTSIDE RECORDS SUMMARY | 2025-06-18 11:09 | XMS_ITS | Encounter Summary ---
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
--- OUTSIDE RECORDS SUMMARY | 2025-06-18 11:09 | XMS_ITS | Encounter Summary ---
Author Organization [facility] Address [address] [place] [address] Care Team Providers Care Structural Steel Worker Apprentice Name Role Phone Smith Martínez DO Primary Care Provide r Encounter Details Date Type Department Care Team (Latest Contact Info) Description 04/01/2005 Outpatient [facility] Gastroenterology[address] [place] [address] Sloan Vickers MD [address] [place] [address] [address] [place] [address] VIR HEP NEC W/O COMA W HEP C CHRON (CMS/HCC) (Primary Dx) Social History Tobacco Use Types Packs/Day Years Used Date Smoking Tobacco: Never Assessed Comments Unknown Sex and Gender Information Value Date Recorded Sex Assigned at Not on file Legal Sex Female 6:13 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
--- OUTSIDE RECORDS SUMMARY | 2025-06-18 11:09 | XMS_ITS | Encounter Summary ---
Author Organization [facility] Address [address] [place] [address] Care Team Providers Care Levers Lace Machine Operator Name Role Phone MartínezSmith nowakhaniel Primary Care Provide r Reason for Referral * Outpatient Services (Routine) - Closed Specialty Diagnoses / Procedures Referred By Alfredo smith Referred To Contact Diagnoses Visit for screening mammogram Procedures MAMMO SCREEN BILAT W OR WO CAD Ligia Parra NP [address] [address] Phone: tel: fax: Referral ID Status Reason Start Date Expiration Date Visits Re quested Visits Authorized [id number] Closed 11/26/2016 12/27/2017 1 1 Encounter Details Date Type Department Care Team ([facility] st Contact Info) Description 11/26/2016 Ancillary Orders [facility] Pre-Registration [place] CALL TO MAKE APPOINTMENT ONLY [address] [place] [address] Ligia Parra CARRIER DRIVER [address] [address] Visit for screening mammogram Social History Tobacco Use Types Packs/Day Years Used Date Smoking Tobacco: Never Smokeless Tobacco: Never Alcohol Use Standard Drinks/Week Comments No 0 (1 standard drink = 0.6 oz pur e alcohol) Comments No Sex and Gender Information Value Date Recorded Sex Assigned at Not on file Legal Sex Female 6:13 AM PERFORMANCE TEST ENGINEER Gender Identity Not on file Sexual [...] mammogram documented in this encounter Care Teams Levers Lace Machine Operator Relationship Specialty Start Date End Date Smith Martínez DO [address] [address] PCP - General Internal Medicine 08/06/18 documented as of this encounter
--- OUTSIDE RECORDS SUMMARY | 2025-06-18 11:09 | XMS_ITS | Encounter Summary ---
Author Organization [facility] Address [address] [place] [address] Care Team Providers Care Clam Treader Name Role Phone Smith Martínez DO Primary Care Provide r Encounter Details Date Type Department Care Team (Latest Contact Info) Description 10/01/2006 Outpatient Historical [facility] Central Processing [address] [place] [address] Aristides Herzog MD NO ADDRESS ON FILE Lichen Planus (Primary Dx) Social History Tobacco Use Types Packs/Day Years Used Date Smoking Tobacco: Never Assessed Comments Unknown Sex and Gender Information Value Date Recorded Sex Assigned at Not on file Legal Sex Female 6:13 AM DIRECTOR DIETETICS DEPARTMENT Gender Identity Not on file Sexual Orientation Not on file documented as of this encounter Plan of Treatment Not on file documented as of this encounter Visit Diagnoses Diagnosis Lichen planus- Primary documented in this encounter Care Teams Clam Treader Relationship Specialty Start Date End Date Smith Martínez DO [address] [place] [address] PCP - General Internal Medicine 08/06/18 documented as of this encounter
--- OUTSIDE RECORDS SUMMARY | 2025-06-18 11:09 | XMS_ITS | Encounter Summary ---
Author Organization [facility] Address [address] [place] [address] Care Team Providers Care Junior Linux Administrator Name Role Phone Smith Martínez DO Primary Care Provide r Encounter Details Date Type Department Care Team (Latest Contact Info) Description 12/23/2003 Outpatient Historical [facility] Imaging Services [address] [place] [address] Jakub Berry MD NO ADDRESS ON FILE SPLENOMEGALY (Primary Dx) Social History Tobacco Use Types Packs/Day Years Used Date Smoking Tobacco: Never Assessed Comments Unknown Sex and Gender Information Value Date Recorded Sex Assigned at Not on file Legal Sex Female 6:13 AM PATTERNMAKER METAL BENCH Gender Identity Not on file Sexual Orientation Not on file documented as of this encounter Plan of Treatment Not on file documented as of this encounter Visit Diagnoses Diagnosis Splenomegaly- Primary documented in this encounter Care Teams Junior Linux Administrator Relationship Specialty Start Date End Date Smith Martínez DO [address] [place] [address] PCP - General Internal Medicine 08/06/18 documented as of this encounter
--- OUTSIDE RECORDS SUMMARY | 2025-06-18 11:09 | XMS_ITS | Encounter Summary ---
Author Organization [facility] Address [address] [place] [address] Care Team Providers Care Artists' Booking Representative Name Role Phone Smith Martínez DO Primary Care Provide r Encounter Details Date Type Department Care Team (Latest Contact Info) Description 01/03/2004 Outpatient Historical [facility] Cancer and Hematology [address] [place] [address] [address] [place] [address] Jakub Berry MD NO ADDRESS ON FILE PRIMARY THROMBOCYTOPENIA (Primary Dx); HYPERSPLENISM Social History Tobacco Use Types Packs/Day Years Used Date Smoking Tobacco: Never Assessed Comments Unknown Sex and Gender Information Value Date Recorded Sex Assigned at Not on file Legal Sex Female 6:13 AM TAPE MACHINE TAILER Gender Identity Not on file Sexual Orientation Not on file documented as of this encounter Plan of Treatment Not on file documented as of this encounter Visit Diagnoses Diagnosis Primary thrombocytopenia- Primary Hypersplenism documented in this encounter Care Teams Artists' Booking Representative Relationship Specialty Start Date End Date Smith Martínez DO [address] [place] [address] PCP - General Internal Medicine 08/06/18 documented as of this encounter
--- OUTSIDE RECORDS SUMMARY | 2025-06-18 11:09 | XMS_ITS | Encounter Summary ---
Author Organization [facility] Address [address] [place] [address] Care Team Providers Care Cookie Padder Name Role Phone Smith Martínez DO Primary Care Provide r Encounter Details Date Type Department Care Team (Latest Contact Info) Description 08/28/2004 Outpatient Historical [facility] Ophthalmology [address] [place] [address] Salomón Barrios MD NO ADDRESS ON FILE REFRACTION DISORDER NOS (Primary Dx) Social History Tobacco Use Types Packs/Day Years Used Date Smoking Tobacco: Never Assessed Comments Unknown Sex and Gender Information Value Date Recorded Sex Assigned at Not on file Legal Sex Female 6:13 AM DINING CAR STEWARD Gender Identity Not on file Sexual Orientation Not on file documented as of this encounter Plan of Treatment Not on file documented as of this encounter Visit Diagnoses Diagnosis Unspecified disorder of refraction and accommodation- Primary documented in this encounter Care Teams Cookie Padder Relationship Specialty Start Date End Date Smith Martínez DO [address] [place] [address] PCP - General Internal Medicine 08/06/18 documented as of this encounter
--- OUTSIDE RECORDS SUMMARY | 2025-06-18 11:09 | XMS_ITS | Encounter Summary ---
Author Organization [facility] Address [address] [place] [address] Care Team Providers Care Supervisor Body Assembly Name Role Phone Smith Martínez DO Primary Care Provide r Encounter Details Date Type Department Care Team (Latest Contact Info) Description 09/20/2004 Outpatient Historical [facility] Sherrie Allen FNP NO ADDRESS ON FILE HEPATITIS C W/O HEPATIC COMA NOS (Primary Dx) Social History Tobacco Use Types Packs/Day Years Used Date Smoking Tobacco: Never Assessed Comments Unknown Sex and Gender Information Value Date Recorded Sex Assigned at Not on file Legal Sex Female 6:13 AM LACQUER MACHINE FEEDER Gender Identity Not on file Sexual Orientation Not on file documented as of this encounter Plan of Treatment Not on file documented as of this encounter Visit Diagnoses Diagnosis Unspecified viral hepatitis C without hepatic coma- Primary documented in this encounter Care Teams Supervisor Body Assembly Relationship Specialty Start Date End Date Smith Martínez DO [address] [facility] [place] [address] PCP - General Internal Medicine 08/06/18 documented as of this encounter
--- OUTSIDE RECORDS SUMMARY | 2025-06-18 11:09 | XMS_ITS | Encounter Summary ---
Author Organization [facility] Address [address] [place] [address] Care Team Providers Care Funeral Assistant Name Role Phone Smith Martínez DO Primary Care Provide r Encounter Details Date Type Department Care Team (Latest Contact Info) Description 04/13/2004 Outpatient Historical [facility] Nilton Samaniego MD [address] [facility] [address] [place] [address] HEPATITIS C ACUTE W/O HEPATIC COMA (Primary Dx) Social History Tobacco Use Types Packs/Day Years Used Date Smoking Tobacco: Never Assessed Comments Unknown Sex and Gender Information Value Date Recorded Sex Assigned at Not on file Legal Sex Female 6:13 AM TRUSS ASSEMBLER Gender Identity Not on file Sexual Orientation Not on file documented as of this encounter Plan of Treatment Not on file documented as of this encounter Visit Diagnoses Diagnosis Acute hepatitis C without mention of hepatic coma(070.51)- Primary Acute hepatitis C without mention of hepatic coma documented in this encounter Care Teams Funeral Assistant Relationship Specialty Start Date End Date Smith Martínez DO [address] [place] [address] PCP - General Internal Medicine 08/06/18 documented as of this encounter
--- OUTSIDE RECORDS SUMMARY | 2025-06-18 11:09 | XMS_ITS | Encounter Summary ---
Author Organization [facility] Address [address] [place] [address] Care Team Providers Care Agriculture Intern Name Role Phone Smith Martínez DO Primary Care Provide r Encounter Details Date Type Department Care Team (Late st Contact Info) Description 09/08/[address] [facility] Imaging Services [address] [place] [address] Isrrael Maya MD [address] [address] Social History Tobacco Use Types Packs/Day Years Used Date Smoking Tobacco: Never Alcohol Use Standard Drinks/Week Comments No 0 (1 standard drink = 0.6 oz pur e alcohol) Comments No Sex and Gender Information Value Date Recorded Sex Assigned at Not on file Legal Sex Female 6:13 AM SURVEY INTERVIEWER Gender Identity Not on file Sexual Orientation Not on file documented as of this encounter Plan of Treatment Not on file documented as of this encounter Visit Diagnoses Not on filedocumented in this encounter Care Teams Agriculture Intern Relationship Specialty Start Date End Date Smith Martínez DO [address] [facility] 1 [place] [address] PCP - General Internal Medicine 08/06/18 documented as of this encounter
--- OUTSIDE RECORDS SUMMARY | 2025-06-18 11:09 | XMS_ITS | Encounter Summary ---
Author Organization [facility] Address [address] [place] [address] Care Team Providers Care Breastfeeding Peer Counselor Name Role Phone Smith Martínez DO Primary Care Provide r Encounter Details Date Type Department Care Team (Latest Contact Info) Description 09/16/2006 Outpatient [facility] [address] [facility] [address] [place] [address] Aristides Herzog MD NO ADDRESS ON FILE Actinic Keratosis (Primary Dx); Other Atopic Dermatitis and Related Conditions Social History Tobacco Use Types Packs/Day Years Used Date Smoking Tobacco: Never Assessed Comments Unknown Sex and Gender Information Value Date Recorded Sex Assigned at Not on file Legal Sex Female 6:13 AM CORPORATE LAWYER Gender Identity Not on file Sexual Orientation Not on file documented as of this encounter Plan of Treatment Not on file documented as of this encounter Visit Diagnoses Diagnosis Actinic keratosis- Primary Other atopic dermatitis and related conditions documented in this encounter Care Teams Breastfeeding Peer Counselor Relationship Specialty Start Date End Date Smith Martínez DO [address] [place] [address] PCP - General Internal Medicine 08/06/18 documented as of this encounter
--- OUTSIDE RECORDS SUMMARY | 2025-06-18 11:09 | XMS_ITS | Encounter Summary ---
Author Organization [facility] Address [address] [place] [address] Care Team Providers Care Passenger Relations Representative Name Role Phone Smith Martínez DO Primary Care Provide r Encounter Details Date Type Department Care Team (Latest Contact Info) Description 10/30/2006 Outpatient Historical [facility] Endoscopy [address] [place] [address] Christiano Ramírez MD NO ADDRESS ON FILE Esophageal Varices without Mention of Bleeding (CMS/HCC) (Primary Dx) Social History Tobacco Use Types Packs/Day Years Used Date Smoking Tobacco: Never Assessed Comments Unknown Sex and Gender Information Value Date Recorded Sex Assigned at Not on file Legal Sex Female 6:13 AM CLIP AND HANGER ATTACHER Gender Identity Not on file Sexual Orientation Not on file documented as of this encounter Plan of Treatment Not on file documented as of this encounter Visit Diagnoses Diagnosis Esophageal varices without mention of bleeding- Primary documented in this encounter Care Teams Passenger Relations Representative Relationship Specialty Start Date End Date Smith Martínez DO [address] [facility] [address] [place] [address] PCP - General Internal Medicine 08/06/18 documented as of this encounter
--- OUTSIDE RECORDS SUMMARY | 2025-06-18 11:09 | XMS_ITS | Encounter Summary ---
Author Organization [facility] Address [address] [place] [address] Care Team Providers Care Clerical Order Filler Name Role Phone Smith Martínez DO Primary Care Provide r Encounter Details Date Type Department Care Team (Latest Contact Info) Description 12/07/[address] [facility] [address] [place] [address] Kade Rios MD NO ADDRESS ON FILE SCREENING MAMM-MAILG NEOPL-OTHER (Primary Dx) Social History Tobacco Use Types Packs/Day Years Used Date Smoking Tobacco: Never Assessed Comments Unknown Sex and Gender Information Value Date Recorded Sex Assigned at Not on file Legal Sex Female 6:13 AM VOUCHER CLERK Gender Identity Not on file Sexual Orientation Not on file documented as of this encounter Plan of Treatment Not on file documented as of this encounter Visit Diagnoses Diagnosis Other screening mammogram- Primary documented in this encounter Care Teams Clerical Order Filler Relationship Specialty Start Date End Date Smith Martínez DO [address] [place] [address] PCP - General Internal Medicine 08/06/18 documented as of this encounter
--- OUTSIDE RECORDS SUMMARY | 2025-06-18 11:10 | XMS_ITS | Encounter Summary ---
Author Organization [facility] Address [address] [place] [address] Care Team Providers Care Punching Machine Operator Name Role Phone Smith Martínez DO Primary Care Provide r Encounter Details Date Type Department Care Team (Late st Contact Info) Description 07/29/2007 Inpatient Historical [facility] Imaging Services [address] [place] [address] Christiano Ramírez MD NO ADDRESS ON FILE Social History Tobacco Use Types Packs/Day Years Used Date Smoking Tobacco: Never Assessed Comments Unknown Sex and Gender Information Value Date Recorded Sex Assigned at Not on file Legal Sex Female 6:13 AM CONSERVATION TECHNICIAN Gender Identity Not on file Sexual Orientation Not on file documented as of this encounter Plan of Treatment Not on file documented as of this encounter Visit Diagnoses Not on filedocumented in this encounter Care Teams Punching Machine Operator Relationship Specialty Start Date End Date Smith Martínez DO [address] [place] [address] PCP - General Internal Medicine 08/06/18 documented as of this encounter
--- OUTSIDE RECORDS SUMMARY | 2025-06-18 11:10 | XMS_ITS | Encounter Summary ---
Author Organization [facility] Address [address] [place] [address] Care Team Providers Care Unified Communications Engineer Name Role Phone Smith Martínez DO Primary Care Provide r Encounter Details Date Type Department Care Team (Late st Contact Info) Description 08/06/2007 Outpatient [facility] Gastroenterology[address] [place] [address] Christiano Ramírez MD NO ADDRESS ON FILE Social History Tobacco Use Types Packs/Day Years Used Date Smoking Tobacco: Never Assessed Comments Unknown Sex and Gender Information Value Date Recorded Sex Assigned at Not on file Legal Sex Female 6:13 AM RPG PROGRAMMER Gender Identity Not on file Sexual Orientation Not on file documented as of this encounter Plan of Treatment Not on file documented as of this encounter Visit Diagnoses Not on filedocumented in this encounter Care Teams Unified Communications Engineer Relationship Specialty Start Date End Date Smith Martínez DO [address] [place] [address] PCP - General Internal Medicine 08/06/18 documented as of this encounter
--- OUTSIDE RECORDS SUMMARY | 2025-06-18 11:10 | XMS_ITS | Encounter Summary ---
Author Organization [facility] Address [address] [place] [address] Care Team Providers Care Film Critic Name Role Phone MartínezSmith nowakhaniel Primary Care Provide r Reason for Referral * Outpatient Services (Routine) - Closed Specialty Diagnoses / Procedures Referred By Alfredo smith Referred To Contact Diagnoses Other screening mammogram Procedures MAMMO DIGITAL SCREEN BILAT Ligia Parra, DIRECTOR OF ADVERTISING SALES [address] [address] Phone: tel: fax: [facility] Pre-Registration [place] CALL TO MAKE APPOINTMENT ONLY [address] [place] [address] Phone: tel: fax: Referral ID Status Reason Start Date Expiration Date V isits Requested Visits Authorized [id number] Closed F MC TO SCHEDULE (SGF) 04/29/2013 05/30/2014 1 1 Encounter Details Date Type Department Care Team (Late st Contact Info) Description 04/29/2013 Ancillary Orders [facility] Pre-Registration [place] CALL TO MAKE APPOINTMENT ONLY [address] [place] [address] Ligia Parra, DIRECTOR OF ADVERTISING SALES [address] [address] Other screening mammogram (Primary Dx) Social History Tobacco Use Types Packs/Day Years Used Date Smoking Tobacco: Never Alcohol Use Standard Drinks/Week Comments No 0 (1 standard drink = 0.6 oz pur e alcohol) Comments No Sex and Gender Information Value Date Recorded Sex Assigned at Not on file Legal Sex Female 6:13 AM ASSISTANT THERAPY AIDE Gender Identity Not on file Sexual [...] findings since the prior mammogram(s). Ligia Parra DIRECTOR OF ADVERTISING SALES MAMMO ORDERABLES Final Result documented in this encounter Visit Diagnoses Diagnosis Other screening mammogram- Primary Other screening mammogram documented in this encounter Care Teams Film Critic Relationship Specialty Start Date End Date Smith Martínez DO [address] [phone] PCP - General Internal Medicine 08/06/18 documented as of this encounter
--- OUTSIDE RECORDS SUMMARY | 2025-06-18 11:10 | XMS_ITS | Encounter Summary ---
Author Organization [facility] Address [address] [place] [address] Care Team Providers Care Gold Blower Name Role Phone Smith Martínez DO Primary Care Provide r Encounter Details Date Type Department Care Team (Latest Contact Info) Description 07/06/2007 Outpatient [facility] Gastroenterology[address] [place] [address] Christiano Ramírez MD NO ADDRESS ON FILE Chronic Hepatitis C without Mention of Hepatic Coma (CMS/HCC) (Primary Dx); Vaccine for Viral Hepatitis Social History Tobacco Use Types Packs/Day Years Used Date Smoking Tobacco: Never Assessed Comments Unknown Sex and Gender Information Value Date Recorded Sex Assigned at Not on file Legal Sex Female 6:13 AM ADHESIVE SPRAYER Gender Identity Not on file Sexual [...] hepatitis documented in this encounter Care Teams Gold Blower Relationship Specialty Start Date End Date Smith Martínez DO [address] [facility] [address] PCP - General Internal Medicine 08/06/18 documented as of this encounter
--- OUTSIDE RECORDS SUMMARY | 2025-06-18 11:10 | XMS_ITS | Encounter Summary ---
Author Organization [facility] Address [address] [place] [address] Care Team Providers Care University Tutor Name Role Phone MartínezSmith nowak Benedict Primary Care Provide r Reason for Referral * Outpatient Services (Routine) - Closed Specialty Diagnoses / Procedures Referred By Alfredo smith Referred To Contact Diagnoses Visit for screening mammogram Procedures MAMMO DIGITAL SCREEN BILAT Ligia Parra, ANURAG [address] [address] Phone: tel: fax: [facility] Pre-Registration [place] CALL TO MAKE APPOINTMENT ONLY [address] [place] [address] Phone: tel: fax: Referral ID Status Reason Start Date Expiration Date Visits Re quested Visits Authorized [id number] Closed 11/23/2015 12/23/2016 1 1 Encounter Details Date Type Department Care Team (Late st Contact Info) Description 11/23/[address] [facility] Pre-Registration [place] CALL TO MAKE APPOINTMENT ONLY [address] [place] [address] Ligia Parra CRM MARKETING ANALYST [address] [address] Visit for screening mammogram (Primary Dx) Social History Tobacco Use Types Packs/Day Years Used Date Smoking Tobacco: Never Alcohol Use Standard Drinks/Week Comments No 0 (1 standard drink = 0.6 oz pur e alcohol) Comments No Sex and Gender Information Value Date Recorded Sex Assigned at Not on file Legal Sex Female 6:13 AM SAMPLE PATTERNMAKER Gender Identity Not on file Sexual Orientation [...] mammogram documented in this encounter Care Teams University Tutor Relationship Specialty Start Date End Date Smiht Martínez DO [address] [address] PCP - General Internal Medicine 08/06/18 documented as of this encounter
--- OUTSIDE RECORDS SUMMARY | 2025-06-18 11:10 | XMS_ITS | Encounter Summary ---
Author Organization [facility] Address [address] [place] [address] Care Team Providers Care Chainstitch Sewing Machine Operator Name Role Phone MartínezSmith nowakhaniel Primary Care Provide r Reason for Referral * Outpatient Services (Routine) - Closed Specialty Diagnoses / Procedures Referred By Alfredo smith Referred To Contact Diagnoses Other screening mammogram Procedures MAMMO DIGITAL SCREEN BILAT Ligia Parra, DIRECTOR SOFTWARE QUALITY ASSURANCE [address] [address] Phone: tel: fax: [facility] Pre-Registration [place] CALL TO MAKE APPOINTMENT ONLY [address] [place] [address] Phone: tel: fax: Referral ID Status Reason Start Date Expiration Date V isits Requested Visits Authorized [id number] Closed F MC TO SCHEDULE (SGF) 05/30/2014 06/30/2015 1 1 Encounter Details Date Type Department Care Team (Late st Contact Info) Description 05/30/2014 Ancillary Orders [facility] Pre-Registration [place] CALL TO MAKE APPOINTMENT ONLY [address] [place] [address] Ligia Parra, DIRECTOR SOFTWARE QUALITY ASSURANCE [address] [address] Other screening mammogram (Primary Dx) Social History Tobacco Use Types Packs/Day Years Used Date Smoking Tobacco: Never Alcohol Use Standard Drinks/Week Comments No 0 (1 standard drink = 0.6 oz pur e alcohol) Comments No Sex and Gender Information Value Date Recorded Sex Assigned at Not on file Legal Sex Female 6:13 AM TUNNELLER Gender Identity Not on file Sexual Orientation [...] mammogram documented in this encounter Care Teams Chainstitch Sewing Machine Operator Relationship Specialty Start Date End Date Smith Martínez DO [address] [phone] PCP - General Internal Medicine 08/06/18 documented as of this encounter
--- OUTSIDE RECORDS SUMMARY | 2025-06-18 11:10 | XMS_ITS | Encounter Summary ---
Author Organization [facility] Address [address] [place] [address] Care Team Providers Care Corporate Claims Examiner Name Role Phone Smith Martínez Primary Care Provide r Reason for Referral * Outpatient Services (Routine) - Closed Specialty Diagnoses / Procedures Referred By Alfredo smith Referred To Contact Diagnoses Memory changes Procedures MRI BRAIN WO CONTRAST Edward Weber MD Phone: tel: fax: [facility] Pre-Registration [place] CALL TO MAKE APPOINTMENT ONLY [address] [place] [address] Phone: tel: fax: Referral ID Status Reason Start Date Expiration Date V isits Requested Visits Authorized [id number] Closed F MC TO SCHEDULE (SGF) 06/18/2016 07/19/2017 1 1 Encounter Details Date Type Department Care Team (Latest Contact Info) Description 06/18/2016 Ancillary Orders [facility] Pre-Registration [place] CALL TO MAKE APPOINTMENT ONLY [address] [place] [address] Edward Weber MD [address] [address] Memory changes (Primary Dx) Social History Tobacco Use Types Packs/Day Years Used Date Smoking Tobacco: Never Smokeless Tobacco: Never Alcohol Use Standard Drinks/Week Comments No 0 (1 standard drink = 0.6 oz pur e alcohol) Comments No Sex and Gender Information Value Date Recorded Sex Assigned at Not on file Legal Sex Female 6:13 AM ASSISTANT COUNSEL Gender Identity Not on file Sexual Orientation Not on file Occupation Industry Job Start Date Job End Date Not on file Not on file Not on file Not on file documented as of this encounter Plan of Treatment Not on file documented as of this encounter Results * MRI BRAIN WO CONTRAST (07/01/2016 11:18 AM ASSISTANT COUNSEL) Anatomical Region Laterality Modality Head Magnetic Resonan ce 07/01/2016 11:1 8 AM ASSISTANT COUNSEL Impressions 07/01/2016 11:41 AM ASSISTANT COUNSEL IMPRESSION: Please see below. Exam: MRI BRAIN [...] loss documented in this encounter Care Teams Corporate Claims Examiner Relationship Specialty Start Date End Date Smith Martínez DO [address] [address] PCP - General Internal Medicine 08/06/18 documented as of this encounter
--- OUTSIDE RECORDS SUMMARY | 2025-06-18 11:10 | XMS_ITS | Encounter Summary ---
Author Organization [facility] Address [address] [place] [address] Care Team Providers Care Warehouse Order Selector Name Role Phone Smith Martínez DO Primary Care Provide r Encounter Details Date Type Department Care Team (Latest Contact Info) Description 02/11/2005 Outpatient [facility] Gastroenterology[address] [place] [address] Sloan Vickers MD [address] [place] [address] [address] [place] [address] VIR HEP NEC W/O COMA W HEP C CHRON (CMS/HCC) (Primary Dx); CIRRHOSIS OF LIVER NOS (CMS/HCC) Social History Tobacco Use Types Packs/Day Years Used Date Smoking Tobacco: Never Assessed Comments Unknown Sex and Gender Information Value Date Recorded Sex Assigned at Not on file Legal Sex Female 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
--- OUTSIDE RECORDS SUMMARY | 2025-06-18 11:10 | XMS_ITS | Encounter Summary ---
Author Organization [facility] Address [address] [facility] Attn: [place] [address] Care Team Providers Care Baker Pastry Name Role Phone Smith Martínez DO Primary [...] on file Legal Sex Female 6:13 AM COST ACCOUNTING CLERK Gender Identity Not on file Sexual Orientation Not on file documented as of this encounter Plan of Treatment Not on file documented as of this encounter Procedures Procedure Name Priority Date/Time Associated Diagnosis Comments ALPHA FETOPROTEIN TUMOR MARKER Routine 07/06/2007 4:17 PM COST ACCOUNTING CLERK documented in this encounter Results * ALPHA FETOPROTEIN TUMOR MARKER (07/06/2007 4:17 PM COST ACCOUNTING CLERK) ALPHA FETOPROTEIN MATERNAL 3.4 <=8.5 ng/mL INTERFACE SYSTEM 07/06/2007 4:17 PM COST ACCOUNTING CLERK us Christiano Ramírez MD CHEMISTRY ORDERABLES Edited INTERFACE SYSTEM Refer to clinic/hospital department documented in this encounter Visit Diagnoses Not on filedocumented in this encounter Care Teams Baker Pastry Relationship Specialty Start Date End Date Smith Martínez DO [address] [facility] [address] [place] [address] PCP - General Internal Medicine 08/06/18 documented as of this encounter
--- OUTSIDE RECORDS SUMMARY | 2025-06-18 11:10 | XMS_ITS | Encounter Summary ---
Author Organization [facility] Address [address] [place] [address] Care Team Providers Care Dentistry Professor Name Role Phone Smith Martínez DO Primary Care Provide r Encounter Details Date Type Department Care Team (Latest Contact Info) Description 03/17/2008 Outpatient Historical [facility] Endoscopy [address] [place] [address] Christiano Ramírez MD NO ADDRESS [...] on file Legal Sex Female 6:13 AM RESTAURANT CULINARY MANAGER Gender Identity Not on file Sexual [...] penicillin documented in this encounter Care Teams Dentistry Professor Relationship Specialty Start Date End Date Smith Martínez DO [address] [facility] [address] [place] [address] PCP - General Internal Medicine 08/06/18 documented as of this encounter
--- OUTSIDE RECORDS SUMMARY | 2025-06-18 11:10 | XMS_ITS | Encounter Summary ---
Author Organization [facility] Address [address] [place] [address] Care Team Providers Care Prosthetics Technician Name Role Phone Smith Martínez DO Primary Care Provide r Encounter Details Date Type Department Care Team (Late st Contact Info) Description 01/17/2005 Outpatient [facility] Gastroenter[address] [place] [address] Social History Tobacco Use Types Packs/Day Years Used Date Smoking Tobacco: Never Assessed Comments Unknown Sex and Gender Information Value Date Recorded Sex Assigned at Not on file Legal Sex Female 6:13 AM CIGAR PACKER AND PICKER Gender Identity Not on file Sexual Orientation Not on file documented as of this encounter Plan of Treatment Not on file documented as of this encounter Visit Diagnoses Not on filedocumented in this encounter Care Teams Prosthetics Technician Relationship Specialty Start Date End Date Smith Martínez DO [address] [facility] 1 [place] [address] PCP - General Internal Medicine 08/06/18 documented as of this encounter
--- OUTSIDE RECORDS SUMMARY | 2025-06-18 11:10 | XMS_ITS | Encounter Summary ---
Author Organization [facility] Address [address] [place] [address] Care Team Providers Care Rn Medicare Name Role Phone Smith Martínez DO Primary Care Provide r Encounter Details Date Type Department Care Team (Latest Contact Info) Description 03/15/[address] [facility] Imaging Services [address] [place] [address] Christiano Ramírez MD NO ADDRESS [...] on file Legal Sex Female 6:13 AM CARPENTRY TEACHER Gender Identity Not on file Sexual [...] thrombosis documented in this encounter Care Teams Rn Medicare Relationship Specialty Start Date End Date Smith Martínez DO [address] [address] PCP - General Internal Medicine 08/06/18 documented as of this encounter
--- OUTSIDE RECORDS SUMMARY | 2025-06-18 11:10 | XMS_ITS | Clinical Summary ---
Author Organization [facility] Address [address] [facility] Attn: Epic [place] [address] Care Team Providers Care Inorganic Chemistry Teacher Name Role Phone Smith Martínez DO [...] on file Legal Sex Female 1:20 PM REHABILITATION TECH Gender Identity Not on file Sexual Orientation Not on file Last Filed Vital Signs Vital Sign Reading Time Taken Comments Blood Pressure 130/70 08/02/2021 12:36 PM REHABILITATION TECH Pulse 80 08/02/2021 12:36 PM REHABILITATION TECH Temperature 35.6 C (96 F) 11/09/2020 2:00 PM CDT Respiratory Rate 18 11/09/2020 2:00 PM CDT Oxygen Saturation - - Inhaled Oxygen Concentration - - Weight 64.5 kg (142 lb 3.2 oz) 08/02/2021 12:36 PM REHABILITATION TECH Height 160 cm (5' 3 ) 08/02/2021 12:36 PM REHABILITATION TECH Body Mass Index 25.19 08/02/2021 12:36 PM REHABILITATION TECH Plan of Treatment Health Maintenance Due Date [...] [employer] PPO [employer]ET[employer] PPO MCR Care Teams Inorganic Chemistry Teacher Relationship Specialty Start Date End Date Smith Martínez DO [address] [place] [address] [address] PCP - General Internal Medicine 08/06/18
--- OUTSIDE RECORDS SUMMARY | 2025-06-18 11:10 | XMS_ITS | Encounter Summary ---
Author Organization [facility] Address [address] [facility] Attn: [place] [address] Care Team Providers Care Engineering Instructor Name Role Phone Smith Martínez Primary [...] FETOPROTEIN MATERNAL 2.9 0.0 - 8.1 ng/mL [facility] Comment: AFP assay methodology was changed from the Vitros ECI to the Advia Centaur on 10/19/07 Collection date/time has been modified to: 14:11:00. Previous collection date/time: 16:46:00. AFP assay methodology was changed from the Vitros ECI to the Advia Centaur on 10/19/07 Blood specimen (specimen) 03/14/2008 2:11 PM CDT 03/14/2008 4:46 PM CDT us Christiano Ramírez MD CHEMISTRY ORDERABLES Edited [facility] CLIA# [id number] [address] [place] [address] documented in this encounter Visit Diagnoses Not on filedocumented in this encounter Care Teams Engineering Instructor Relationship Specialty Start Date End Date Smith Martínez DO [address] [address] PCP - General Internal Medicine 08/06/18 documented as of this encounter
--- OUTSIDE RECORDS SUMMARY | 2025-06-18 11:10 | XMS_ITS | Encounter Summary ---
Author Organization [facility] Address [address] [place] [address] Care Team Providers Care Director Of Retail Merchandising Name Role Phone Smith Martínez DO Primary Care Provide r Encounter Details Date Type Department Care Team (Latest Contact Info) Description 01/23/2005 Outpatient [facility] Gastroenterology[address] [place] [address] Sloan Vickers MD [address] [place] [address] [address] [place] [address] VIR HEP NEC W/O COMA W HEP C CHRON (CMS/HCC) (Primary Dx); CIRRHOSIS OF LIVER NOS (CMS/HCC) Social History Tobacco Use Types Packs/Day Years Used Date Smoking Tobacco: Never Assessed Comments Unknown Sex and Gender Information Value Date Recorded Sex Assigned at Not on file Legal Sex Female 6:13 AM PEDIATRIC CARDIOLOGIST Gender Identity Not on file Sexual Orientation [...] in this encounter Care Teams Director Of Retail Merchandising Relationship Specialty Start Date End Date Smith Martínez DO [address] [place] [address] PCP - General Internal Medicine 08/06/18 documented as of this encounter
--- OUTSIDE RECORDS SUMMARY | 2025-06-18 11:11 | XMS_ITS | Data Portability ---
Author Organization [place] - [facility], [facility] Address [address] [address] Assessment Encounter Date Assessment Date Assessment LastModified by Organization Details LastModified Time 01/27/2018 01/27/2018 25 min exam and discussion, over 50% face to face counseling [email or web address] Not available 01/27/2018 12:07:53 Plan of Treatment Reminders Order Date Submit Date Provider Last Modified By Organization Details Last Modified Time Details Appointments None recorded. Lab vitamin D, 25-hydroxy , total, serum 2017 018 NATALIA [facility] ([facility], [address] [place], [address], 8 14:50:33 pap, LB + reflex HR HPV 2017 018 [facility], [address] [place], [address], 8 10:22:53 Referral None recorded. Procedures None recorded. Surgeries None recorded. Imaging None recorded. Medication Orders nystatin 100,000 unit/gram topical cream 2022 023 [facility], [address], [place], [address], 3 12:29:06 nystatin 100,000 unit/gram topical powder 2022 023 [facility], [address], [place], [address], 3 12:29:08 nystatin-t riamcinolo ne 100,000 unit/g-0.1 % topical cream 2022 023 [facility], [address], [place], [address], 3 12:29:07 nystatin-t riamcinolo ne 100,000 unit/g-0.1 % topical cream 2021 022 [facility], [address], [place], [address], 2 16:26:56 nystatin 100,000 unit/gram topical powder 2021 022 [facility], [facility], [place], [address], 16:26:49 Patient TargetsNo targets recorded. Patient Instructions Encounter Date Encounter Id Patient Instructions Last Modified By Organization Details Last Modified Time 12/10/2016 [id number] self breast exam education Not available 12/10/2016 16:47:01 osteoporosis education Not available 12/10/2016 16:47:01 01/27/2018 [id number] self breast exam education [email or web address] Not available 01/27/2018 12:07:00 osteoporosis education [email or web address] Not available 01/27/2018 12:07:00 03/25/2019 [id number] self breast exam education amyl Not available 03/25/2019 16:44:37 osteoporosis education amyl Not available 03/25/2019 16:44:37 07/29/2022 [id number] self breast exam education amyl Not available 07/30/2022 09:20:47 osteoporosis education amyl Not available 07/30/2022 09:20:47 Reason for Referral None Reported. Results Created Date Observation Date Name Description Value Unit Range Abnormal Flag Note LastModifiedBy Organization Detail LastModifiedTime 01/28/20 18 01/28/2018 vitam in D, 25-hy droxy , total , serum vitamin D,25-oh,tota l,ia 52 NG/mL 30-100 normal Vitam in D Statu s 25-OH Vitam in D: Defic iency : <20 ng/mL Insuf ficie ncy: 20 - 29 ng/mL Optim al: > or = 30 ng/mL For 25-OH Vitam in D testi ng on patie nts on D2-hlolis pplem entat ion and patie nts for whom quant itati on of D2 and D3 fract ions is requi red, the Quest Assur eD(TM ) 25-OH VIT D, (D2,D 3), LC/MS /MS is recom live d: order code 57430 (anil ents >2yrs ). For more infor jaylyn prado on this test, go to: http: //flori amador ics.c om/fa q/FAQ 163 (This link is being provi ded for infor jaylyn nal/e ducat ional purpo ses only. ) Not Available [place] [address] [place], [address], 01/28/2018 14:50:33 01/28/20 18 01/30/2018 pap, LB thinprep Pap test NEGATI VE negati ve normal . -- THIN PREP PAP TEST -- NEELIMA CTED DATE: 01/27 SEX: F : [birth year] AGE: 72 [id number] CLINI C ID: [id number] SS: PHYSI ATA: MARIA TERESA HERNANDEZ CTED BY: . Negat elvin for Intra epith elial Guero prado or Eagle milan . . Addit ional Findi ngs: Endoc ervic al Mater ial Prese nt . Speci men Adequ acy: Satis facto ry for Evalu ation . Previ ous Histo ry: Nov 2015 Negat elvin May 2014 Negat elvin . Clini aysha Note: Prev Pap 12-12 16, Post Menop ausal Speci men Sourc e: Cervi x / Endoc ervix Visit Type: Routi ne . . Perfo rmed by: APOLONIA Hall (ASCP ) (Elec troni c Signa ture 018 09:07 ) . [facility] , [address] , [place] [address] , CLIA# [id number] Medic al Direc tor: Est[address], DO Not Available [employer] [address] [place], [address], 01/30/2018 10:22:53 12/26/19 17 12/23/2016 MAMMO , scree kiran, digit al, bilat eral No observ ation record ed. [email or web address] Not Available 2016 11:35:26 01/29/20 18 01/27/2018 MAMMO , scree kiran, bilat eral No observ ation record ed. [email or web address] Not Available 01/28 16:53:53 03/26/20 19 07/23/2018 bone densi ty No observ ation record ed. [email or web address] Not Available 03/26 16:18:40 03/29/20 19 03/25/2019 MAMMO , scree kiran, bilat eral No observ ation record ed. Not Available 03/29 16:24:59 10/07/19 23 10/03/2022 MAMMO , scree kiran, bilat eral No observ ation record ed. [email or web address] Not Available 2022 10:45:22 11/15/19 23 clini aysha photo * No observ ation record ed. [email or web address] Not Available 2022 12:44:55 Result Notes None recorded. 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 574136266 Completed 12/10/2016 Ligia Parra APRN, [place] [address], [address], [place], [address], [place] - [facility] 7 15:53:04 Abnormal findings on diagnost ic imaging of urinary organs 124900910 Completed 12/10/2016 Ligia Parra APRN, [place] [address], [address], [place], [address], [place] [facility] 7 15:53:07 Osteopen ia 125550102 Active OKSANA Warren - [facility] 6 10:00:09 Malaise and fatigue 459976876 Completed 200312/10/2016 OKSANA Nolan - [facility] 7 15:30:21 Chronic hepatiti s C 912677906 Active 2003 was cleared of hepatiti s with Solvaldi and Olysio approx 2010 OKSANA Vo - [facility] 8 11:11:28 Disorder of bone and articula r cartilag e 442576211 Completed 200512/10/2016 Ligia Parra APRN, [place] [address], [address], [place], [address], [place] [facility] 7 15:53:01 Inguinal hernia 153637508 Completed 200512/10/2016 OKSANA Nolan - [facility] 7 15:30:33 History of liver recipien t 642850526 Active 2016 Ligia Parra APRN, [place] [address], [address], [place], [address], [place] [facility] 7 15:54:18 History of renal transpla nt 594820391 Active 2016 Ligia BurrSANTA pradoN, [place] [address], [address], [place], [address], [place] [facility] 7 15:54:33 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 Procedures Surgical History Date Name Laterality Status Provider Name and Address Organization Details Recorded Time 9 Anesth kidney transplant completed Not Available [facility] 07/09/2011 03:48:50 9 Anes iper upr abd lvr trnspl completed Not Available [facility] 07/09/2011 03:48:50 Anes hrna rpr upr abd nos completed Winifred Bosch [place] - [facility] 04/16/2012 14:09:26 Imaging Results None recorded. Procedure Notes None recorded. Medical Equipment None Reported. Allergies Allergen ID Allergen Name Allergen Category Reaction Reaction Severity Criticality Documentation Date Start Date Code Code System Note Provider Name and Address Organization Details Recorded Time 972 Product containin g penicilli n (product) medicatio n rash Not available Not available 04/02/2007 [id number] SNOMED Not Available [facility] 1 03:48:44 Medications Name Sig Start Date Stop Date Status Note LastModified by Organization Details LastModified Time Prometriu m 200 mg capsule Take 1 capsule every day by oral route for 12 days. 12/04 completed Not Available Not Available Not Available atorvasta tin 40 mg tablet TAKE 1 TABLET BY MOUTH ONCE DAILY active Not Available Not Available No t Available doxycycli ne hyclate 100 mg capsule 07/29 completed Not Available Not Available Not Available medroxypr ogesteron e 2.5 mg tablet Take 1 tablet every day by oral route as directed for 30 days. active Not Available Not Available No t Available hydrocodo ne 5 mg-acetam inophen 325 mg tablet active Not Available Not Available Not Available isosorbid e mononitra te ER 30 mg tablet,ex tended release 24 hr active Not Available Not Available Not Available spironola ctone 100 mg tablet active Not Available Not Available No t Available milk thistle 200 mg capsule 03/25 completed x 3 Not Available Not Available Not Available clindamyc in HCl 150 mg capsule 01/27 completed Not Available Not Available Not Available clopidogr el 75 mg tablet 03/25 completed Not Available Not Available Not Available sulfameth oxazole 800 mg-trimet hoprim 160 mg tablet active Not Available Not Available Not Available simvastat in 40 mg tablet active Not Available Not Available Not Available Eye-Vites tablet Take by oral route. active Not Available Not Available No t Available Protonix 40 mg intraveno us solution active Not Available Not Available Not Available phenazopy ridine 100 mg tablet active Not Available Not Available Not Available prednison e 2.5 mg tablet active Not Available Not Available Not Available cephalexi n 500 mg capsule 12/10 completed Not Available Not Available Not Available simvastat in 20 mg tablet 03/25 completed Not Available Not Available Not Available nitrofura ntoin macrocrys martine 100 mg capsule 01/27 completed Not Available Not Available Not Available nystatin 100,000 unit/gram topical cream APPLY CREAM TO AFFECTED AREA(S) TOPICALL Y TWICE DAILY FOR 4 WEEKS THEN NEEDED THEREAFT ER active Not Available Not Available No t Available losartan 25 mg tablet 03/25 completed Not Available Not Available Not Available nystatin- triamcino lone 100,000 unit/g-0. 1 % topical cream APPLY THIN LAYER OF CREAM TOPICALL Y NEEDED DAILY active Not Available Not Available No t Available Inderal 40 mg tablet active take prn Not Available Not Available Not Available nystatin 100,000 unit/gram topical powder APPLY TO AFFECTED AREA(S) TOPICALL Y TWICE DAILY FOR 2 WEEKS THEN NEEDED THERAFTE R active Not Available Not Available No t Available tacrolimu s 1 mg capsule, immediate -release active Not Available Not Available Not Available naproxen 500 mg tablet active Not Available Not Available Not Available tacrolimu s 0.5 mg capsule, immediate -release active Not Available Not Available Not Available Premarin 0.625 mg/gram vaginal cream Insert 1 gram by vaginal route twice weekly active Not Available Not Available No t Available metoprolo l tartrate 25 mg tablet TAKE 1 TABLET BY MOUTH TWICE DAILY active Not Available Not Available No t Available magnesium active 400 mg Not Available Not Arabella ilable Not Available Vitamin C active Not Available Not Arabella ilable Not Available aspirin active 81 mg once daily Not Available Not Available Not Available Co Q-10 active Not Available Not Avail able Not Available calcium 03/25 completed Not Available Not Available Not Available vitamin E 03/25 completed Not Available Not Available Not Available vitamin B complex active Not Available Not Available Not Available Fish Oil active Not Available Not Avai lable Not Available tacrolimu s 07/29 completed 2.5 mg 2x daily - transpla nt med - prograft Not Available Not Available Not Available coconut oil 03/25 completed Not Available Not Available Not Available nadolol active Not Available Not Avail able Not Available Stool Softener active Not Available Not Available Not Available Vitamin D3 active Not Available Not Available Not Available Sheyenne 3 03/25 completed Not Available Not Available Not Available multivita min active Not Available Not Available Not Available Nexium active Not Available Not Availa ble Not Available alpha lipoic acid 03/25 completed Not Available Not Available Not Available vitamin B comp and C no.3 03/25 completed Not Available Not Available Not Available oregano oil 03/25 completed Not Available Not Available Not Available beta 1,3 glucan (bulk) 03/25 completed Not Available Not Available Not Available vit D3-vit K-berberi ne-hops 01/27 completed Not Available Not Available Not Available acai edmonds extract 03/25 completed Not Available Not Available Not Available GaviLyte- N 420 gram oral solution active Not Available Not Available Not Available Prevnar 13 (PF) 0.5 mL intramusc ular syringe ADM 0.5ML IM UTD 01/27 completed Not Available Not Available Not Available vit c-ascorba te Ca-ascorb sod 03/25 completed Not Available Not Available Not Available Probiotic active 2x daily Not Available Not A vailable Not Available resveratr ol 03/25 completed Not Available Not Available Not Available Eliquis 5 mg tablet active Not Available Not Available No t Available Fluvirin 3834-7687 45 mcg (15 mcg x 3)/0.5 mL intramusc ular suspensio n ADM 0.5ML UTD active Not Available Not Available No t Available Beta Glucan (1,3/1,4- D) active Not Available Not Available Not Available Olysio 150 mg capsule active Not Available Not Available Not Available Sovaldi 400 mg tablet active Not Available Not Available Not Available Fluvirin 4969-2004 45 mcg (15 mcg x 3)/0.5 mL intramusc ular suspensio n ADM 0.5ML UTD active Not Available Not Available No t Available Fluvirin 2881-2334 45 mcg (15 mcg x 3)/0.5 mL intramusc ular suspensio n ADM BY [facility] 0.5ML IM UTD active Not Available Not Available No t Available Fluad 2015- 65yr up(PF)45 mcg(15 mcgx3)/0. 5 mL intramusc ular syringe ADM 0.5ML IM UTD 01/27 completed Not Available Not Available Not Available Afluria (PF) 45 mcg(15 mcg x 3)/0.5 mL intramusc ular syringe PHARMACI ST TO ADMINIST ER 01/27 completed Not Available Not Available Not Available Vitals Date Recorded Body height Body mass index (BMI) Body weight Systolic And Diastolic Provider Name and Address Organization Details Last Updated DateTime 11/14/2022 158.75 cm 26.1 kg/m2 26564.89 g 140/94 mm[Hg] Ligia Parra, [employer], [address], [address], [place], [address], [place] - [facility] 11/14/2022 12:10:08 Date Recorded Body height Body weight Body mass index (BMI) Systolic And Diastolic Provider Name and Address Organization Details Last Updated DateTime 12/10/2016 158.75 cm 12242.75 g 24.8 kg/m2 128/72 mm[Hg] David Naylor [place] - [facility] 12/10/2016 15:27:59 Date Recorded Body height Body mass index (BMI) Body weight Systolic And Diastolic Provider Name and Address Organization Details Last Updated DateTime 01/27/2018 158.75 cm 24.8 kg/m2 60684.75 g 138/76 mm[Hg] Haley Collier [place] - [facility] 01/27/2018 11:13:44 Date Recorded Body weight Systolic And Diastolic Provider Name and Address Organization Details Last Updated DateTime 03/25/2019 51806.97 g 124/72 mm[Hg] Analilia Parra [place] - [facility] 03/25/2019 12:20:13 Date Recorded Body height Body mass index (BMI) Body weight Systolic And Diastolic Provider Name and Address Organization Details Last Updated DateTime 07/29/2022 158.75 cm 25.7 kg/m2 32849.71 g 140/72 mm[Hg] Isabel Wright [place] - [facility] 07/29/2022 15:39:19 Social History Question Answer Notes LastModified by Organizat ion Details LastModified Time Tobacco Smoking Status Never Smoker OKSANA Zapata - [facility] 04/16/2012 14:09:26 What Is Your Level Of Caffeine Consumption? Moderate 1 Coffee In The AM - Some Tea Throughout Day [email or web address] Information not available 01/27/2018 In The 14 Days Before Symptom Onset, Have You Had Close Contact With A Laboratory-confi rmed COVID-19 While That Case Was Ill? No [email or web address] Information not available 07/29/2022 In The 14 Days Before Symptom Onset, Have You Had Close Contact With A Person Who Is Under Investigation For COVID-19 While That Person Was Ill? No [email or web address] Information not available 07/29/2022 Have You Been To An Area Known To Be High Risk For COVID-19? Yes [email or web address] Information not available 07/29/2022 Which Illicit Or Recreational Drugs Have You Used? None [email or web address] Information not available 07/09/2011 Illicit Drugs No Information not available 04/16/2012 Marital Status Information not available 07/09/2011 What Was The Date Of Your Most Recent Tobacco Screening? 01/27/2018 Information not available 03/17/2019 How Many Children Do You Have? 3 [email or web address] Information not available 07/09/2011 What Is Your Relationship Status? [email or web address] Information not available 07/29/2022 Seat Belts Used Routinely Yes [email or web address] Information not available 07/09/2011 Are You Sexually Active? No [email or web address] Information not available 07/29/2022 How Much Tobacco Do You Smoke? No [email or web address] Information not available 07/09/2011 How Many Years Have You Smoked Tobacco? 0 [email or web address] Information not available 01/27/2018 Sex: Female Functional Status Question Answer Note LastModified by Organizat ion Details LastModified Time Do you use any illicit or recreational drugs? No [email or web address] Information not available 07/29/2022 Do you or have you ever used any other forms of tobacco or nicotine? No [email or web address] Information not available 07/29/2022 What is your level of alcohol consumption? None Information n ot available 07/09/2011 Are you currently employed? No [email or web address] Information not available 07/29/2022 Urinary incontinence assessment performed? Yes Information not available 12/07/2015 What is your occupation? retired Information not available 04/16/2012 What is your exercise level? Heavy [email or web address] Information not available 07/29/2022 Mental Status None recorded. Family History Relationship Description Onset Age of this Age Resolved Age Notes LastModified by Organization Details LastModified Time Mother Hypertensive disorder previo usly record ed as Hypert ension Not available 12/07/2015 14:15:31 Mother Osteoporosis mini stroke Not available 12/07/2015 14:15:31 Mother Problem acid reflux Not available 12/07/2015 14:15:31 Sister Asthma Not available 0 12/07/2015 14:15:31 Father Parkinson's disease Not available 2015 14:15:31 Medical History Condition Response Breast Cancer N Endometriosis N Ovarian cancer N Blood Clots/DVT N Diabetes N Influenza Vaccine Y Hyperlipidemia N Thyroid disease N Heart Disease N Hypertension Y Gynecological History Statement/Question Response Prior colonoscopy date Y If Post Menopausal, Age at Menopause Prior pap date 01/27/2018 Date of LMP [employer] Prior Mammogram date 03/25/2019 Prior DXA date 2015 11 23 If over 50 or menopausal current vit d d ose 2000iu Obstetrics History GPAL:G 3 P 3 0 0 3 Type Value Multiple Births 0 Full Term 3 Induced 0 Spontaneous 0 Premature 0 Living 3 Ectopics 0 Total 3 Past Encounters Encounter ID Performer Location Encounter Start Date Encounter Closed Date Diagnosis/Indication Diagnosis SNOMED-CT Code Diagnosis ICD10 Code Diagnosis IMO Codes Diagnosis Note [id number], [address] [place] [address] 12/07/2003 12:06:05 12/07/2003 14:15:36 [id number] [facility] [address] [place] [address] 01/25/2004 11:46:49 01/25/2004 13:18:27 [id number] [facility] [address] [place] [address] 02/09/2004 00:00:00 02/08/2007 01:03:46 [id number] [facility] [address] [place] [address] 12/07/2003 00:00:00 02/08/2007 01:03:46 [id number] Amauri Hendrix MD [facility] [address], [address] [place] [address] 12/12/2004 11:52:30 12/12/2004 12:50:39 [id number] Amauri Hendrix MD [facility] [address] [place] [id number] Amauri Hendrix MD [facility] [address], [address] [place] [address] 03/03/2006 00:00:00 02/08/2007 01:03:54 [id number] Amauri Hendrix MD [facility] [address] [place] [address] 06/24/2006 11:48:37 06/24/2006 12:27:05 [id number] Ligia Parra APRN, [facility] [address] [place] [address] 05/14/2007 10:49:02 05/15/2007 12:07:56 [id number] Ligia Parra APRN, [facility] [address], [address] [place] [address] 05/24/2008 11:21:21 05/24/2008 13:03:17 [id number] Ligia Parra APRN, [facility] [address] [place] [address] 06/14/2010 11:43:40 06/15/2010 19:18:42 [id number] Ligia Parra APRN, [facility] [address] [place] [address] 04/16/2012 13:28:41 04/20/2012 11:41:59 [id number] Ligia Parra APRN, [facility] [address] [place] [address] 05/07/2013 12:06:37 05/11/2013 09:52:35 [id number] Ligia Parra APRN, [facility] [address] [place] [address] 06/10/2013 14:43:16 06/11/2013 11:26:03 [id number] Ligia Parra APRN, [facility] [address] [place] [address] 11/17/2013 11:33:49 11/18/2013 16:47:52 Abnormal findings on diagnostic imaging of urinary organs 909405846 [id number] Ligia Parra APRN, [facility] [address] [place] [address] 06/15/2014 11:37:43 06/15/2014 16:54:27 Screening for malignant neoplasm of cervix 852999745 Screening for malignant neoplastic disease 71273226 Abnormal f indings on diagnostic imaging of urinary organs 892716953 [id number] Ligia Parra APRN, [facility] [address] [place] [address] 12/07/2015 13:55:22 12/11/2015 15:25:21 Screening for malignant neoplasm of cervix 917515794 Z12.4 * yearly exam with pap normal exam recent mammo (today) due for dxa, will schedule screening labs with pcp recent colonoscop y hx hep c - now cured after giliad med f/u one year or sooner prn Screening for malignant neoplastic disease 56445108 Z12.9 [id number] Annie Sevilla APRN, [facility] [address] [address], [address] [facility] [place] [address] 01/24/2016 14:54:21 01/26/2016 11:28:20 Osteopenia 116499779 M85.80 * dxa reviewed: ap spine -2.4, left femur neck -2.0, total -2.3; right femur neck -1.3, total -1.6 - neda 1/3 radius -3.3 and -3.1 - all areas are stable - continue calcium/wi ll check vit d level - discussed bisphospho malcolm risks/bene fits, patient will consider, will need to consult with transplant provider prior to starting med - may need referral to endocrinol ogist [id number] Ligia Parra APRN, [facility] [address] [address], [address] [place] [address] 12/10/2016 15:03:10 12/11/2016 11:51:58 Menopausal and postmenopausal disorders 068539799 N95.9 * yearly exam, no pap this year normal exam has mammogram scheduled patient will make sure transplant clinic has checked screening labs (or pcp) current colonoscop y/dxa f/u one year or sooner prn [id number] Maria Teresa URIARTE, [facility], [address] [place] [address] 01/27/2018 10:47:13 01/27/2018 15:01:24 Gynecologic examination 74294682 Z01.419 *Pt will call for DEXA appt before appt w/ Dr Lobo in reclast w/ Dr Lobo yearly, sees him in May, wants DEXA before that appt- last Dexa 2015, both forearms were in Osteoporos is rangeCurre ntly on 4000 u vit D daily, last level was 70, 2013Curren t mammogram, having today Current colonoscop yRTC yearly &PRN Screening for malignant neoplasm of cervix 101527912 Z12.4 Screening for malignant neoplastic disease 65857370 Z12.9 Osteoporosis 60108509 M8 1.0 [id number] Ligia Parra APRN, [facility] [address], [address] [place] [address] 4 03/25/2019 11:37:21 03/28/2019 15:05:44 Menopausal and postmenopausal disorders 080220475 N95.9 * yearly exam, no pap this year normal exam has mammogram scheduled current colonoscop y/prior dxa [facility] 08/10 - will plan repeat after 08/12 f/u one year or sooner prn [id number] Ligia Parra APRN, [place] [id number] Chad Sutherland, [facility] [address] [place] [address] 4 07/29/2022 15:18:52 07/31/2022 12:33:46 Vaginitis [id number] N76.0 Vulvovaginitis 03247371 N76.89 *plan nystatin triamcinol one cream twice daily for 2 wks to perirectal area (thin layer), then decrease to 3 times weeklywill follow with the use of an antifungal powderrega rding cystic areas - encouraged warm compresses - may need to have cyst on buttock incised and drained if it becomes more painfulrec ommenhien Headley see primary care provider for cyst near buttock - she may need a referral to a general surgeon if no improvemen t(Discusse d case with Dr. Norwood and he agrees with plan) Menopausal and postmenopausal disorders [id number] N95.9 * Medicare exam - no pap per asccp guidelines encourage d her to schedule a mammogram current colonoscop ydue for dxa scan f/u one year or sooner prn [id number] Ligia Parra APRN, [place] [address] [address], [facility] [address] [place] [address] 4 11/14/2022 12:01:14 11/14/2022 15:46:28 Vaginitis 56713159 N76.0 Vulvovaginitis 22904114 N76.89 *probable lilian intertrigo plan:nysta tin cream twice daily x 4 wksfollow with nystatin powder twice daily x 4 wksuse nystatin-t riamcinolo ne once daily but thin layervagin itis precaution s - avoid soap in the genital areapatien t will call pcp office to make sure she has had a recent screening for diabetesse e image in chartf/u 4-6 wks for repeat exam Health Concerns Section Related Observation LastModified by Organization Detai ls LastModified Time None Recorded Concern Status LastModified by Organization Details LastModified Time None Recorded Advance Directives Directive None Recorded Payers Insurance Date Sequence Insurance Name Policy Number Policy Linn Covered Member ID Linn Member ID Guarantor Name 12/07/2022 1 [employer] (MEDICARE REPLACEMENT/ ADVANTAGE - PPO) [id number] Echo A Kyle [id number] Echo A Kyle 2014 1 [facility] HEALTH BENEFIT PLAN - [employer] HEALTH PLAN (PPO) Henrique Prado Kyle [id number] Echo Solomon Kyle 12/07/2022 2 [employer] - [facility] HEALTH BENEFIT PLAN (PPO) 32 Henrique Prado Kyle [id number] Echo A Kyle 09/01/2022 1 MEDICARE [place]: WPS Echo Solomon Kyle [id number] Echo Solomon Kyle 12/07/2022 1 *SELF PAY* Pa fredrick Wright Notes Date Note Type Note Provider Name and Address Organization Details Recorded Time 12/10/2016 text/html Here for annual exam. No problems or changes. Hx hep c - received sovaldi and was cleared in 2014 - now hep c free (diagnosed in 2008, - from blood transfusion). Hx kidney/liver transplant 2008 Ligia Parra APRN, [address], [address], [address], [place] [facility] 12/10/2016 16:05:20 01/27/2018 text/html AnnualPMO since age 50, no HRT now, used premarin cream, stopped due to some endometrial thickeningNo bleeding since PMPUses vaginal dilator and coconut oil for ic, currently no problemsHaving mammogram this afternoon Maria Teresa URIARTE, CNP- [address], [place] [address], [place], [address], [place] [facility] 01/27/2018 12:09:08 03/25/2019 text/html Patient is here for her annual exam.Stroke 09/12 - still has decrease strength right side - was in therapy for 3 months.Hx hep c with liver transplant. Ligia Parra APRN, [address] [facility] [address], [place], [address], [place] [facility] 03/25/2019 16:44:39 07/29/2022 text/html Fang is here with c/o vulvar bumps , tender, felt like a pimple - now notices one near rectal area - onset x 2 wks - no problems with this in the past.Also due for her annual exam.Doing well post stroke 2018. Still has residual weakness in right hand.Hx liver/kidney transplant. Ligia Parra APRN, [address], [place] [address], [place], [address], [place] [facility] 07/30/2022 09:20:52 11/14/2022 text/html Fang is here with c/o vaginal irritation.c/o external erythema, itching - treated with nystatin/triamcinolo ne - will improve and then come back (now 3 times).Nystatin triamcinolone - used 2 wks twice daily, then three times per week - stopped using and symptoms returned.Using Dove or Ivory. Ligia Parra APRN, [address], [place] [address], [place], [address], [place] [facility] 11/14/2022 12:40:55 OBGyn Episode No OBEpisode recorded.
--- OUTSIDE RECORDS SUMMARY | 2025-06-18 11:11 | XMS_ITS | Continuity of Care Document ---
Author Organization [facility] Merlene Pereira, [facility] ([facility]) Address [address] [facility] [place] [address] Care Team Providers Care Maintenance Fitter Name Role Phone JERRELL MCDONOUGH Primary Care Provider Unavailabl e Assessment No assessment recorded. Plan of Treatment Reminders Order Date Submit Date Provider Last Modified By Organization Details Last Modified Time Details Appointments RECHECK 2024 11:40A Mikey Mcdonough, Not available Not available Not available Lab CMP, serum or plasma 2024 025 [facility], [address] [facility], [facility], [place], [address], 06/16/2025 13:50:46 CBC 2024 025 [facility], [address] [facility], [address], [place], [address], 06/16/2025 13:27:22 Referral None recorded . Procedures None recorded . Surgeries None recorded . Imaging None recorded . Medication Orders None recorded . Patient TargetsNo targets recorded. Patient InstructionsNo instructions recorded. Reason for Referral None Reported. Problems Name Problem SNOMED Code Status Onset Date Resolution Date Notes Provider Name and Address Organization Details Recorded Time Paroxysma l atrial fibrillat ion 864846979 Active 2022 Jerrell Mcdonough DO [address] [place], [address], [facility] Merlene Pereira 11:22:13 Right hemipares is 879716957 Active 2022 Jerrell Mcdonough, [address], [address] [place] [address] 5, [facility] 3 11:22:13 History of cerebrova scular accident 014161967 Completed 202210/20/2024 Fatimah velasquez [facility] 5 13:58:37 Hyperlipi demia 70873643 Active 2022 Jerrell Mcdonough, [address], [address] [place] [address] 5, [facility] 3 11:22:13 Transplan judie liver present 591146088 Active [address], [address] [place] [address] 5, [facility] 3 11:22:13 Transplan judie kidney present 555475508 Active [address], [address] [place] [address] 5, [facility] 3 11:22:13 Moderate recurrent major depressio n 88276670 Active 2023 Jerrell Mcdonough, [address], [address] [place] [address] 5, [facility] 4 08:31:13 Poor short-ter m memory 214397472 Active 2023 Fatimah velasquez [facility] 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 66391632 Completed 202310/20/2024 Fatimah velasquez [facility], [facility]ad[facility] 5 13:59:22 History of renal failure 737041634 Completed 202310/20/2024 Fatimah velasquez [facility], [facility]adL[facility] 5 13:59:03 History of liver disease 924165584 Completed 202310/20/2024 Fatimah velasquez [facility], [facility]adL[facility] 5 13:59:01 Gastroeso phageal reflux disease 510839364 Active [address], [address] [place] [address] 5, [facility], LChrisLChrisC[facility] 4 08:31:13 Hiatal hernia 94932960 Active [address], [address] [place] [address] 5, [facility], AsadL[facility] 4 08:31:13 Essential hypertens ion 22130253 Active [address], [address] [place] [address] 5, [facility], LChrisLChrisC[facility] 4 08:31:13 Idiopathi c periphera l neuropath y 22505023 Active [address], [address] [place] [address] 5, [facility] 4 08:31:13 Atrial fibrillat ion with rapid ventricul ar response 966858985671 109 Completed 202310/20/2024 Fatimah velasquez [facility], LChrisLChrisC[facility] 5 13:58:51 Congestiv e heart failure 10857575 Active 2023 Jerrell Mcdonough, [address] [place] [address], [address], [facility] 4 08:31:13 Hypothyro idism 98805265 Active 2023 Fatimah velasquez [facility] 5 13:59:05 Postmenop ausal state 75103638 Active 2024 Fatimah velaqsuez [facility] 5 13:59:13 Symptomat ic congestiv e heart failure 446827271 Active 2024 David velasquez [facility] 5 11:43:13 Problem Notes None recorded. Procedures Surgical History Date Name Laterality Status Provider Name and Address Organization Details Recorded Time 02/04/20 24 Joint Inj Kenalog- Shoulder, Hip, Knee completed David Stephenson [facility] 02/04/2024 15:27:32 transplantation to recipient completed Fatimah Lynnee [facility] 10/20/2024 15:07:35 hernia repair [facility] 10/20/2024 15:07:49 Imaging Results None recorded. Procedure Notes None recorded. Medical Equipment None Reported. Allergies Allergen ID Allergen Name Allergen Category Reaction Reaction Severity Criticality Documentation Date Start Date Code Code System Note Provider Name and Address Organization Details Recorded Time 1781 Product containin g penicilli n (product) medicatio n Not available Not available Not available 12/11/2022 27983 8001 SNOMED PA velasquez [facility] 3 09:18:39 3976 Product containin g 3-hydroxy -3-methyl glutaryl- coenzyme A reductase inhibitor (product) medicatio n arthralgi a (joint pain) moderate low 01/28/2023 92160 009 SNOMED Jerrell Mcdonough DO [address] [place] [address], [address], [facility] 3 11:30:30 3977 Xarelto medicatio n myalgias (muscle pain) severe low 01/28/2023 86279 99 RxNorm Jerrell Mcdonough DO [address] [place] [address], [address], [facility] 3 11:31:02 41547 penicilli n G sodium medicatio n Not available Not available Not available 03/22/2023 9900 RxNorm Comme nt: Recor ded 08/29 11:35 AM by Xiao Prajapati Offic e Visit ; Lanre judie; Brandi ricks ce: *; Reaso n: Drug aller gy; ; [facility] 4 13:07:02 88046 Zetia medicatio n headache Not available low 04/29/20232022 22096 9 RxNorm Jerrell Mcdonough DO [address] [place] [address], [address], [facility] 3 11:27:07 Medications Name Sig Start Date Stop Date Status Note LastModified by Organization Details LastModified Time furosemid e 40 mg tablet TAKE 1 TABLET BY MOUTH TWICE DAILY (MORNING AND EARLY AFTERNOO N) active Not Available Not Available No t Available potassium chloride ER 10 mEq capsule,e xtended release TAKE 1 CAPSULE BY MOUTH ONCE DAILY 09/02 completed Not Available Not Available Not Available doxycycli ne hyclate 100 mg capsule 12/11 completed Not Available Not Available Not Available azithromy ritchie 250 mg tablet TAKE 2 TABLETS BY MOUTH ON DAY 1, AND THEN TAKE 1 TABLET BY MOUTH ONCE A DAY ON DAY 2 THROUGH DAY 5 02/03 completed Not Available Not Available Not Available amiodaron e 200 mg tablet TAKE 1 TABLET BY MOUTH ONCE DAILY active Not Available Not Available No t Available hydrocodo ne 5 mg-acetam inophen 325 mg tablet up to 3 times a day as needed for severe pain 12/11 completed Not Available Not Available Not Available galantami ne 4 mg tablet TAKE ONE TABLET BY MOUTH TWICE DAILY; TAKE with AM and PM meals 10/20 completed Not Available Not Available Not Available amlodipin e 2.5 mg tablet Take 1 tablet every day by oral route for 30 days. 10/20 completed Not Available Not Available Not Available potassium chloride ER 10 mEq tablet,ex tended release TAKE 1 TABLET BY MOUTH TWICE DAILY DIRECTED active Not Available Not Available No t Available sulfameth oxazole 800 mg-trimet hoprim 160 mg tablet two times daily 12/11 completed Not Available Not Available Not Available omeprazol e 40 mg capsule,d elayed release TAKE 1 CAPSULE EVERY MORNING active Not Available Not Available No t Available spironola ctone 25 mg tablet TAKE 2 TABLETS BY MOUTH IN THE MORNING FOR FLUID RETENTIO N active Not Available Not Available No t Available levothyro xine 25 mcg tablet Take 1 tablet every day by oral route for 90 days. 12/14 completed Not Available Not Available Not Available Kenalog 40 mg/mL suspensio n for injection Take 40 mg by injectio n route. 03/03 completed Not Available Not Available Not Available diltiazem ER 120 mg capsule,2 4 hr,extend ed release TAKE 1 CAPSULE BY MOUTH ONCE DAILY IN THE EVENING FOR HEART AND FOR BLOOD PRESSURE 08/11 completed Not Available Not Available Not Available imiquimod 5 % topical cream packet APPLY TOPICALL Y TO WARTS EVERY OTHER NIGHT ALTERNAT ING WITH SALICYLI C ACID PADS FOR 16 WEEKS OR UNTIL CLEAR, WASH OFF IN THE MORNING 12/31 completed Not Available Not Available Not Available amlodipin e 10 mg tablet TAKE 1 TABLET BY MOUTH ONCE DAILY active Not Available Not Available No t Available levothyro xine 50 mcg tablet TAKE 1 TABLET BY MOUTH ONCE DAILY FOR THYROID active Not Available Not Available No t Available nystatin 100,000 unit/gram topical cream APPLY CREAM TO AFFECTED AREA(S) TOPICALL Y TWICE DAILY FOR 4 WEEKS THEN NEEDED THEREAFT ER 02/17 completed Not Available Not Available Not Available flecainid e 50 mg tablet TAKE 1 TABLET BY MOUTH EVERY 8 HOURS 04/11 completed Not Available Not Available Not Available metoprolo l tartrate 50 mg tablet Take 1 tablet twice a day by oral route for 90 days. 08/11 completed Not Available Not Available Not Available nystatin- triamcino lone 100,000 unit/g-0. 1 % topical cream APPLY THIN LAYER OF CREAM TOPICALL Y NEEDED DAILY 02/17 completed Not Available Not Available Not Available furosemid e 20 mg tablet TAKE 1 TABLET BY MOUTH ONCE DAILY 10/20 completed Not Available Not Available Not Available nystatin 100,000 unit/gram topical powder APPLY TO AFFECTED AREA(S) TOPICALL Y TWICE DAILY FOR 2 WEEKS THEN NEEDED THERAFTE R 02/17 completed Not Available Not Available Not Available tacrolimu s 1 mg capsule, immediate -release 2 twice a day with other medicati on active Not Available Not Available No t Available spironola ctone 50 mg tablet TAKE 1 TABLET BY MOUTH ONCE DAILY FOR FLUID RETENTIO N active Not Available Not Available No t Available tacrolimu s 0.5 mg capsule, immediate -release 1 po bid with other tacrolim us 10/20 completed Not Available Not Available Not Available Zetia 10 mg tablet Take 1 tablet every day by oral route for 90 days. 04/29 completed Not Available Not Available Not Available memantine 10 mg tablet TAKE 1 TABLET BY MOUTH TWICE DAILY active Not Available Not Available No t Available memantine 5 mg-10 mg tablets in a dose pack TAKE DIRECTED PER PACKAGE 10/20 completed Not Available Not Available Not Available metoprolo l tartrate 25 mg tablet TAKE 1 TABLET BY MOUTH TWICE DAILY FOR HIGH BLOOD PRESSURE active Not Available Not Available No t Available aspirin 05/20 completed Not Available Not Available Not Available amlodipin e 1 tablet every day 04/05 completed Not Available Not Available Not Available tacrolimu s 04/29 completed Recorded 08/05/20 22 8:55AM by Jerrell Mcdonough DO, Office Visit; Not Available Not Available Not Available Nystatin/ Triamcino lone 09/05 /2023 completed 0; Recorded 08/29/19 23 11:35AM by Deangelo Prajapati, Office Visit; Not Available Not Available Not Available diclofena c 1 % topical gel APPLY 2 GRAMS TO THE AFFECTED AREA(S) BY TOPICAL ROUTE up to 3 TIMES PER DAY as needed 12/31 completed Not Available Not Available Not Available Xarelto 20 mg tablet TAKE 1 TABLET BY MOUTH ONCE DAILY 01/28 completed severe fatigue and msucle weakness Not Available Not Available Not Available Eliquis 5 mg tablet Take 1/2 (one-jessica f) tablet by mouth twice daily 2024 active Not Available Not Available Not Avai lable Eliquis two times daily 04/29 completed Recorded 08/05/20 22 8:54AM by Jerrell Mcdonough DO, Office Visit; Mail Order Quantity : 60 Tablet; Refill Quantity : 0; Not Available Not Available Not Available Probiotic Formula (inulin) 1 billion cell-250 mg capsule two times daily active Not Available Not Available No t Available Entresto 24 mg-26 mg tablet TAKE 1 TABLET BY MOUTH TWICE DAILY FOR CHF active Not Available Not Available No t Available metoprolo l tartrate 75 mg tablet TAKE 1 TABLET BY MOUTH TWICE DAILY 08/11 completed Not Available Not Available Not Available Vitals None Recorded Social History Question Answer Notes LastModified by Organizat ion Details LastModified Time Tobacco Smoking Status Never Smoker Fatimah velasquez, [facility], [facility] 10/20/2024 15:06:33 What Is Your Level Of Caffeine Consumption? Moderate Information not available 10/20/2024 What Was The Date Of Your Most Recent Tobacco Screening? 10/20/2024 [email or web address] Information not available 10/20/2024 Sex: Unknown Functional Status Question Answer Note LastModified by Organizat ion Details LastModified Time Do you use any illicit or recreational drugs? No [email or web address] Information not available 12/11/2022 Do you or have you ever used any other forms of tobacco or nicotine? No [email or web address] Information not available 12/11/2022 What is your level of alcohol consumption? None [email or web address] Information not available 12/11/2022 Do you or have you ever used any nicotine-free cigarettes, vape, or chewing tobacco? No [email or web address] Information not available 10/20/2024 Mental Status None recorded. Family History Relationship Description Onset Age of this Age Resolved Age Notes LastModified by Organization Details LastModified Time Mother Heart disease [email or web address] Not available 2024 15:06:51 Medical History No medical history recorded. Gynecological HistoryNo gynecological history recorded. Obstetrics History GPAL:G 0 P 0 0 0 0 Immunizations Vaccine Type Date Status Note Provider Nam e and Address Organization Details Recorded Time Pneumococcal conjugate PCV 13 7 completed Fatimah velasquez [facility] 04/05/2024 13:55:08 Influenza, high-dose, trivalent, PF 7 completed Fatimah velasquez [facility] 04/05/2024 13:55:08 Influenza, split virus, trivalent, preservative 3 completed Fatimah velasquez [facility] 04/05/2024 13:55:08 Influenza, split virus, trivalent, PF 5 completed Fatimah velasquez [facility] 04/05/2024 13:55:08 Past Encounters Encounter ID Performer Location Encounter Start Date Encounter Closed Date Diagnosis/Indication Diagnosis SNOMED-CT Code Diagnosis ICD10 Code Diagnosis IMO Codes Diagnosis Note [id number] Jerrell Mcdonough DO [facility] ([facility]) [address] [place] [address] 05/19/2025 11:30:49 05/26/2025 10:32:50 Symptomatic congestive heart failure 270888816 I50.30 [id number] 05/19/25: Improved, continue Spironolac tone and Entresto, f/u one month, cbc and cmp prior, consider increasing Entresto.: Counseled we will add additional diuretic, Spironolac tone 50mg each am, to use with Furosemide , to help prevent loss of Potassium. Continue current dose of Furosemide 40mg BID. Will also start Entresto. Counseled on diagnosis, treatment options including medication s and possible side effects. Reassured we have good Cardiologi st here, we will see if she sees the new Cardiologi st at her next appt, rather than the midlevel, then she can continue care locally. Pt agrees. F/u 2 days. 12/14/24: Counseled take Furosemide 1 tablet daily.10/20: Improved. Continue Lasix PRN, to let us know if she is needing it frequently .09/02/24: Lasix and Potassium PRN with 3lb or more weight gain per Cardiology , to let us know if she is needing to take this, we may consider daily Lasix dosing. Counseled monitor weight closely, also pay attention to swelling, increased SOB, discomfort when laying down.08/16: CHF appears mildly improved, but not optimized. Still with symptoms. will increase lasix to 40mg bid and KCL 10meq bid x1 wk, f/u with cardiology next. week. repeat bmp today.07/25 04/17- concern for continued CHF not responding to low dose lasix. We will repeat BMP and CXR today ( she is planning to have lab drawn in the am tomorrow for Benito, will check BMP then also). Counseled increase Lasix from 20mg to 40mg BID for 3 days, then 40mg once daily. F/u with Cardio on 08/23 as scheduled, f/u with me one week later. RTC 08/16/24 if she is not significan tly better. Dyspnea 187942881 R06.00 [id number] 05/19/25: improved.: Repeat CXR today.04/11: CXR today. [id number] Jerrell Mcdonough DO [facility] ([facility]) [address] [place] [phone] 06/16/2025 12:00:08 06/17/2025 10:06:54 Essential hypertension 47695333 I10 Stable.09/26 02/16: Reviewed BP and HR log, counseled take Metoprolol at 25mg BID. Continue following with Cardiology , they are considerin g changing Amlodipine to Diltiazem if HR consistent ly running 70-80's. Continue to monitor BP and HR, reporting log back to Cardiology .1/9/25- Taking Amlodipine 2.5mg per Cardiology .04/05/24: stable. continue meds.- Cardio restarted Amlodipine 2.5mg daily, counseled do this and continue Metoprolol 50mg BID, continue monitoring BP and HR regularly, let me know if HR lowering than 50. F/u 1 month.02/03- counseled ears look fine today, BP is running higher, likely the cause of her hearing her heartbeat in her ear. Discussed options of increasing Metoprolol , she prefers to wait and see if this improves. increase metoprolol from 25 bid to 50 bid Health Concerns Section Related Observation LastModified by Organization Detai ls LastModified Time None Recorded Concern Status LastModified by Organization Details LastModified Time None Recorded Payers Encounter Date Sequence Insurance Name Policy Number Policy Linn Covered Member ID Linn Member ID Guarantor Name 06/16/2025 1 [employer] (MEDICARE REPLACEMENT/ ADVANTAGE - PPO) [id number] Echo Wright [id number] Echo Wright OBGyn Episode No OBEpisode recorded.
--- OUTSIDE RECORDS SUMMARY | 2025-06-18 11:11 | XMS_ITS | Clinical Summary ---
Author Organization [facility] Address [address] [place] [address] Care Team Providers Care Road Builder Name Role Phone Smith Martínez DO Primary [...] on file Legal Sex Female 6:13 AM [employer] ATTENDANT Gender Identity Not on file Sexual [...] 62.1 kg (137 lb) 08/01/2020 10:59 AM [employer] ATTENDANT Height 160 cm (5' 3 ) 08/01/2020 10:59 AM [employer] ATTENDANT Body Mass Index 24.27 08/01/2020 10:59 AM [employer] ATTENDANT Plan of Treatment Health Maintenance Due Date [...] Advance Directives For more information, please contact: [phone] * Full Code (Latest Code Status on [...] 11:57 AM 03/15/2009 2:[address] Relationship Specialty Start Date End Date Smith Martínez DO [address] [facility] [address] [place] [id number] PCP - General Internal Medicine 08/06/18
--- OUTSIDE RECORDS SUMMARY | 2025-06-18 11:11 | XMS_ITS | Encounter Summary ---
Author Organization [facility] Address [address] [place] [address] Care Team Providers Care Brick Veneer Maker Name Role Phone Smith Martínez DO Primary Care Provide r Encounter Details Date Type Department Care Team (Latest Contact Info) Description 12/12/2004 Outpatient Historical [facility] [address] [facility] [address] [place] [address] Sherrie Arambula MD NO ADDRESS ON FILE SCREENING MAMM-MAILG NEOPL-OTHER (Primary Dx) Social History Tobacco Use Types Packs/Day Years Used Date Smoking Tobacco: Never Assessed Comments Unknown Sex and Gender Information Value Date Recorded Sex Assigned at Not on file 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
--- OUTSIDE RECORDS SUMMARY | 2025-06-18 11:11 | XMS_ITS | Encounter Summary ---
Author Organization [facility] Address [address] [place] [address] Care Team Providers Care Windlace Machine Operator Name Role Phone Smith Martínez DO Primary Care Provide r Encounter Details Date Type Department Care Team (Latest Contact Info) Description 12/27/2004 Outpatient Historical 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
--- OUTSIDE RECORDS SUMMARY | 2025-06-18 11:11 | XMS_ITS | Encounter Summary ---
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) Social History Tobacco Use Types Packs/Day Years Used Date Smoking Tobacco: Never Assessed Comments Unknown Sex and Gender Information Value Date Recorded Sex Assigned at Not on file Legal Sex Female 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
--- OUTSIDE RECORDS SUMMARY | 2025-06-18 11:11 | XMS_ITS | Encounter Summary ---
Author Organization [facility] Address [address] [place] [address] Care Team Providers Care Director Technical Name Role Phone Smith Martínez DO Primary Care Provide r Encounter Details Date Type Department Care Team (Latest Contact Info) Description 12/27/2004 Outpatient [facility] Gastroenterology[address] [place] [address] Sloan Vickers MD [address] [place] [address] [address] [place] [address] VIR HEP NEC W/O COMA W HEP C CHRON (CMS/HCC) (Primary Dx); CIRRHOSIS OF LIVER NOS (CMS/HCC) Social History Tobacco Use Types Packs/Day Years Used Date Smoking Tobacco: Never Assessed Comments Unknown Sex and Gender Information Value Date Recorded Sex Assigned at Not on file 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
--- OUTSIDE RECORDS SUMMARY | 2025-06-18 11:11 | XMS_ITS | Encounter Summary ---
Author Organization [facility] Address [address] [place] [address] Care Team Providers Care Utility Agent Name Role Phone Smith Martínez DO Primary Care Provide r Encounter Details Date Type Department Care Team (Latest Contact Info) Description 03/16/2007 Outpatient [facility] Gastroenterology- [address] [place] [address] Christiano Ramírez MD NO ADDRESS ON FILE Chronic Hepatitis C without Mention of Hepatic Coma (CMS/HCC) (Primary Dx) Social History Tobacco Use Types Packs/Day Years Used Date Smoking Tobacco: Never Assessed Comments Unknown Sex and Gender Information Value Date Recorded Sex Assigned at Not on file 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
--- OUTSIDE RECORDS SUMMARY | 2025-06-18 11:11 | XMS_ITS | Encounter Summary ---
Author Organization [facility] Address [address] [place] [address] Care Team Providers Care Shoe Cobbler Name Role Phone Smith Martínez DO Primary Care Provide r Encounter Details Date Type Department Care Team (Latest Contact Info) Description 01/09/2005 Outpatient [facility] Gastroenterology[address] [place] [address] Sloan Vickers MD [address] [place] [address] [address] [place] [address] VIR HEP NEC W/O COMA W HEP C CHRON (CMS/HCC) (Primary Dx); CIRRHOSIS OF LIVER NOS (CMS/HCC) Social History Tobacco Use Types Packs/Day Years Used Date Smoking Tobacco: Never Assessed Comments Unknown Sex and Gender Information Value Date Recorded Sex Assigned at Not on file 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
--- OUTSIDE RECORDS SUMMARY | 2025-06-18 11:11 | XMS_ITS | Continuity of Care Document ---
Author Organization OKSANA Chan [facility] Merlene Pereira, [facility] ([facility]) Address [address] [place] [address] Care Team Providers Care In Home Aide Name Role Phone JERRELL GARCIA Primary Care Provider Unavailabl e Assessment No assessment recorded. Plan of Treatment Reminders Order Date Submit Date Provider Last Modified By Organization Details Last Modified Time Details Appointments RECHECK 2024 11:40A M Jerrell Garcia, DO Not available Not available Not available Lab BMP, serum or plasma 2024 025 NATALIA [facility], [address] [facility], [facility] 1, [place], [address], 06/17/2025 11:05:48 Referral None recorded . Procedures None recorded . Surgeries None recorded . Imaging None recorded . Medication Orders None recorded . Patient TargetsNo targets recorded. Patient InstructionsNo instructions recorded. Reason for Referral None Reported. Problems Name Problem SNOMED Code Status Onset Date Resolution Date Notes Provider Name and Address Organization Details Recorded Time Paroxysma l atrial fibrillat ion 762293546 Active 2022 Jerrell Garcia DO [address] [place], [address], [place] OKSANA Chan [facility] Merlene Pereira 3 11:22:13 Right hemipares is 366571773 Active 2022 Jerrell Garcia DO [address] [place], [address], [facility]SA[facility] Chan [facility] Merlene Pereira 3 11:22:13 History of cerebrova scular accident 700374619 Completed 202210/20/2024 Fatimah velasquez [facility] 5 13:58:37 Hyperlipi demia 42199942 Active 2022 [facility], [address], [address] [place] [address] 5, [facility] 3 11:22:13 Transplan judie liver present 145567684 Active [address], [address] [place] [address] 5, [facility] 3 11:22:13 Transplan judie kidney present 627422727 Active [address], [address] [place] [address] 5, [facility] 3 11:22:13 Moderate recurrent major depressio n 53833001 Active [address], [address] [place] [address] 5, [facility] 4 08:31:13 Poor short-ter m memory 899628124 Active 2023 Fatimah velasquez [facility] 5 13:59:10 History of hepatitis C 805543338028 Completed 202310/20/2024 Fatimah velasquez [facility] 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 5 13:59:22 History of renal failure 479700793 Completed 202310/20/2024 Fatimah velasquez [facility] 5 13:59:03 History of liver disease 609195309 Completed 202310/20/2024 Fatimah velasquez [facility] 5 13:59:01 Gastroeso phageal reflux disease 536657674 Active [address], [address] [place] [address] 5, [facility] 4 08:31:13 Hiatal hernia 78808024 Active [address], [address] [place] [address] 5, [facility] 4 08:31:13 Essential hypertens ion 16443366 Active [address], [address] [place] [address] 5, [facility] 4 08:31:13 Idiopathi c periphera l neuropath y 63453748 Active [address], [address] [place] [address] 5, [facility] 4 08:31:13 Atrial fibrillat ion with rapid ventricul ar response 892678074092 109 Completed 202310/20/2024 Fatimah velasquez [facility] 5 13:58:51 Congestiv e heart failure 97459965 Active [address], [address] [place] [address] 5, [facility] 4 08:31:13 Hypothyro idism 34637854 Active 2023 [facility] 5 13:59:05 Postmenop ausmi state 39104643 Active 2024 [facility] 5 13:59:13 Symptomat ic congestiv e heart failure 839711893 Active 2024 [facility] 5 11:43:13 Problem Notes None recorded. Procedures Surgical History Date Name Laterality Status Provider Name and Address Organization Details Recorded Time 02/04/20 24 Joint Inj Kenalog- Shoulder, Hip, Knee completed David Stephenson [facility] 02/04/2024 15:27:32 transplantation to recipient completed [facility] 10/20/2024 15:07:35 hernia repair completed [facility] 10/20/2024 15:07:49 Imaging Results None recorded. Procedure Notes None recorded. Medical Equipment None Reported. Allergies Allergen ID Allergen Name Allergen Category Reaction Reaction Severity Criticality Documentation Date Start Date Code Code System Note Provider Name and Address Organization Details Recorded Time 178 Product containin g penicilli n (product) medicatio n Not available Not available Not available 12/11/2022 57076 8001 SNOMED PA GARCIA [facility] 3 09:18:39 3976 Product containin g 3-hydroxy -3-methyl glutaryl- coenzyme A reductase inhibitor (product) medicatio n arthralgi a (joint pain) moderate low 01/28/2023 20382 009 SNOMED Jerrell Garcia DO [address] [place] [address], [address], [facility] 3 11:30:30 3977 Xarelto medicatio n myalgias (muscle pain) severe low 01/28/2023 85760 99 RxNorm Jerrell Garcia, DO [address] [place] [address], [address], [facility] 3 11:31:02 37213 penicilli n G sodium medicatio n Not available Not available Not available 03/22/2023 9900 RxNorm Comme nt: Recor ded 08/29 11:35 AM by Xiao Prajapati, Offic e Visit ; Lanre judie; Brandi ricks ce: *; Reaso n: Drug aller gy; ; PAULA velasquez, [facility] 4 13:07:02 [address] Zetia medicatio n headache Not available low 04/29/20232022 12165 9 RxNorm Jerrell Garcia, [address] [place] [address], [address], [facility] 3 11:27:07 Medications Name Sig Start [...] completed Recorded 08/05/20 22 8:55AM by Jerrell Garcia DO, Office Visit; Not Available Not Available Not Available Nystatin/ Triamcino lone 04/29 completed 0; Recorded 08/29/19 23 11:35AM by [...] completed Recorded 08/05/20 22 8:54AM by Jerrell Garcia DO, Office Visit; Mail Order Quantity : [...] Social History Question Answer Notes LastModified by [email or web address] Details LastModified Time Tobacco Smoking Status [facility] 15:06:33 What Is Your Level Of Caffeine Consumption? Moderate [email or web address] Information not available 10/20/2024 What Was The Date Of Your Most Recent Tobacco Screening? 10/20/2024 Information not available 10/20/2024 Sex: Unknown Functional Status Question Answer Note LastModified by [email or web address] ion Details LastModified Time Do you use any illicit or recreational drugs? No [email or web address] Information not available 12/11/2022 Do you or have you ever used any other forms of tobacco or nicotine? No [email or web address] Information not available 12/11/2022 What is your level of alcohol consumption? None [email or web address] Information not available 12/11/2022 Do you or have you ever used any nicotine-free cigarettes, vape, or chewing tobacco? No [email or web address] Information not available 10/20/2024 Mental Status None recorded. Family History Relationship Description Onset Age of this Age Resolved Age Notes LastModified by Organization Details LastModified Time Mother Heart disease [email or web address] Not available 2024 15:06:51 Medical History No medical history recorded. Gynecological HistoryNo gynecological history recorded. Obstetrics History GPAL:G 0 P 0 0 0 0 Immunizations Vaccine Type Date Status Note Provider Nam e and Address Organization Details Recorded Time Pneumococcal conjugate PCV 13 7 completed Fatimah velasquez [facility] 04/05/2024 13:55:08 Influenza, high-dose, trivalent, PF 7 completed Fatimah velasquez [facility] 04/05/2024 13:55:08 Influenza, split virus, trivalent, preservative 3 completed Fatimah velasquez [facility] 04/05/2024 13:55:08 Influenza, split virus, trivalent, PF 5 completed Fatimah velasquez [facility] 04/05/2024 13:55:08 Past Encounters Encounter ID Performer Location Encounter Start Date Encounter Closed Date Diagnosis/Indication Diagnosis SNOMED-CT Code Diagnosis ICD10 Code Diagnosis IMO Codes Diagnosis Note [id number] Jerrell Garcia DO [facility] ([facility]) [address] [place] [address] 05/19/2025 11:30:49 05/26/2025 10:32:50 Symptomatic congestive heart failure 435707156 I50.30 [id number] 05/19/25: Improved, continue Spironolac tone and Entresto, [...] lab drawn in the am tomorrow for Oliver, will check BMP then also). Counseled increase Lasix from 20mg to 40mg BID for 3 days, then 40mg once daily. F/u with Cardio on 08/23 as scheduled, f/u with me one week later. RTC 08/16/24 if she is not significan tly better. Dyspnea 492374818 R06.00 [id number] 05/19/25: improved.: Repeat CXR today.04/11: CXR today. [id number] Jerrell Garcia DO [facility] ([facility]) [address] [place] [address] 06/16/2025 12:00:08 06/17/2025 10:06:54 Essential hypertension 09713605 I10 Stable.09/26 02/16: Reviewed BP and HR log, counseled take Metoprolol at 25mg BID. Continue following with Cardiology , they are considerin g changing Amlodipine to Diltiazem if HR consistent ly running 70-80's. Continue to monitor BP and HR, reporting log back to Cardiology .09/02/24- Taking Amlodipine 2.5mg per Cardiology .04/05/24: stable. [...] metoprolol from 25 bid to 50 bid [id number] Jerrell Garcia DO [facility] ([facility]) [address] [place] [address] 06/17/2025 10:01:04 06/17/2025 10:04:05 Serum sodium below reference range 8082165509 R79.89 [id number] Health Concerns Section Related Observation LastModified by Organization Detai ls LastModified Time None Recorded Concern Status LastModified by Organization Details LastModified Time None Recorded Payers Encounter Date Sequence Insurance Name Policy Number Policy Linn Covered Member ID Linn Member ID Guarantor Name 06/17/2025 1 [employer] (MEDICARE REPLACEMENT/ ADVANTAGE - PPO) [id number] Echo Wright [id number] Echo Wright OBGyn Episode No OBEpisode recorded.
--- OUTSIDE RECORDS SUMMARY | 2025-06-18 11:12 | XMS_ITS | Data Portability ---
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 I was present during interview and exam. I have reviewed and agree with above documentation . Dr. Jerrell Garcia. [email or web address] Not available 04/11/2025 17:37:51 05/16/2025 05/16/2025 Document scribed by Jann Denton Scribe. I was present during interview and exam. I have reviewed and agree with above documentation . Dr. Jerrell Garcia. [email or web address] Not available 05/16/2025 11:36:09 05/19/2025 05/19/2025 Document scribed by Jann Denton Scribe. I was present during interview and exam. I have reviewed and agree with above documentation . Dr. Jerrell Garcia. [email or web address] Not available 05/19/2025 12:38:53 Plan of Treatment Reminders Order Date Submit Date Provider Last Modified By Organization Details Last Modified Time Details Appointments RECHECK 2024 11:40A Mikey Garcia, DO Not available Not available Not available Lab BMP, serum or plasma 2024 025 [facility], [address], [address], [place], [address], 06/17/2025 11:05:48 CMP, serum or plasma 2024 025 [facility], [address], [place], [address], 06/16/2025 13:50:46 CBC 2024 025 [facility], [address], [address], [place], [address], 06/16/2025 13:27:22 thyrotrop in, QN, serum or plasma 2024 025 [facility], [address], [address], [place], [address], 05/16/2025 13:17:07 T4, free, serum 2024 025 [facility], [address] [place] [address], [facility] [address] [place], [address], 05/17/2025 05:24:13 CMP, serum or plasma 2024 025 [email or web address] 7 [facility], [address], [place], [address], 05/16/2025 12:40:23 CBC 2024 025 [email or web address] 7 [facility], [address], [place], [address], 05/16/2025 12:40:23 thyrotrop in, QN, serum or plasma 2024 025 [email or web address] 7 [facility], [address], [address], [place], [address], 04/12/2025 07:57:47 T4, free, serum 2024 025 [facility], [address] [facility] [address] [place], [address], 04/13/2025 06:06:53 Referral None recorded. Procedures None recorded. Surgeries None recorded. Imaging XR, chest, 2 view 2024 025 [email or web address] [facility] ([facility]), [address] [place], [address], 05/17/2025 09:11:34 XR, chest, 2 view 2024 025 [email or web address] [facility] ([facility]), [address] [place], [address], 04/12/2025 10:13:06 Medication Orders spironola ctone 50 mg tablet 2024 [email or web address] [place] [address] [facility], [address], [place], [address], 05/19/2025 19:16:04 spironola ctone 25 mg tablet 2024 [email or web address] [place] [address] Pharm[facility], [address], [place], [address], 05/16/2025 12:40:23 Entresto 24 mg-26 mg tablet 2024 [email or web address] [place] [address] Pharmacy 15, [address], [place], [address], 05/16/2025 12:40:23 Patient TargetsNo targets recorded. Patient InstructionsNo instructions recorded. Reason for Referral None Reported. Results Created Date Observation Date Name Description Value Unit Range Abnormal Flag Note LastModifiedBy Organization Detail LastModifiedTime 04/11/2004/11/2025 TSH TSH 3.20 uIU/m L 0.49-3 .82 Not Available [facility] [address] [facility] [address], [place], [address], 04/11/2025 18:20:28 04/12/2004/13/2025 T4, FREE T4, free 2.0 NG/dL 0.8-1. 8 high Not Available [facility] [address], [place], [address], 04/13/2025 06:06:53 05/16/2005/16/2025 CBC WBC 5.8 x10 4.0-10 .5 Not Available [facility] [address] [facility] [address], [place], [address], 05/16/2025 12:24:01 05/16/20 25 05/16/2025 CBC RBC 4.05 x10 3.50-5 .50 Not Available [facility] [address] [facility], [place], [address], 05/16/2025 12:24:01 05/16/20 25 05/16/2025 CBC HGB 12.3 g/dL 12.0-1 6.0 Not Available [facility] [address] [facility] [address], [place], [address], 05/16/2025 12:24:01 05/16/20 25 05/16/2025 CBC HCT 37.8 % 37.0-4 7.0 Not Available [facility] [address] [facility] 1, [place], [address], 05/16/2025 12:24:01 05/16/20 25 05/16/2025 CBC MCV 93.3 fL 80.0-9 9.9 Not Available [facility] [address] [facility] 1, [place], [address], 05/16/2025 12:24:01 05/16/20 25 05/16/2025 CBC MCH 30.4 pg 27.0-3 2.0 Not Available [facility] [address] [facility] 1, [place], [address], 05/16/2025 12:24:05/16/2005/16/2025 CBC MCHC 32.6 g/dL 32.0-3 6.0 Not Available [facility] [address] [facility] [address], [place], [address], 05/16/2025 12:24:05/16/2005/16/2025 CBC RDW 15.3 % 11.5-1 4.5 high Not Available [facility] [address] [facility] [facility] 1, [place], [address], 05/16/2025 12:24:05/16/2005/16/2025 CBC plt 239.0 x10 140.0- 451.0 Not Available [facility] [address] [facility] [address], [place], [address], 05/16/2025 12:24:05/16/2005/16/2025 CBC lymphocytes % 19.2 % 20.0-5 0.0 low Not Available [facility] [address] [facility] [address], [place], [address], 05/16/2025 12:24:05/16/2005/16/2025 CBC granulcytes % 73.9 % 30.0-7 0.0 high Not Available [facility] [address] [facility], [place], [address], 05/16/2025 12:24:05/16/2005/16/2025 CBC monocytes % 5.8 % 2.0-16 .0 Not Available [facility] [address] [facility] 1, [place], [address], 05/16/2025 12:24:05/16/20 05/16/2025 CBC granulcytes# 4.3 x10 Not Arabella ilable [facility] [address] [address], [place], [address], 05/16/2025 12:24:01 05/16/20 25 05/16/2025 CBC lymphocytes # 1.1 x10 Not Available [facility] [address] [address], [place], [address], 05/16/2025 12:24:01 05/16/20 25 05/16/2025 CBC monocytes # 0.3 x10 Not Avai lable [facility] [address] [address], [place], [address], 05/16/2025 12:24:01 05/16/20 25 05/16/2025 CMP (FEMA LE) glucose 108.0 mg/dL 60.0-9 9.0 high Not Available [facility] [address] [address], [place], [address], 05/16/2025 12:39:40 05/16/20 25 05/16/2025 CMP (FEMA LE) BUN (blood urea nitrogen) 12.0 mg/dL 10.0-2 6.0 Not Available [facility] [address] [address], [place], [address], 05/16/2025 12:39:40 05/16/20 25 05/16/2025 CMP (FEMA LE) creatinine (serum) 0.8 mg/dL 0.4-1. 5 Not Available [facility] [address] [address], [place], [address], 05/16/2025 12:39:40 05/16/20 25 05/16/2025 CMP (FEMA LE) BUN/creatini ne ratio 15.00 ratio Not Available [facility] [address] [place], [address], 05/16/2025 12:39:40 05/16/20 25 05/16/2025 CMP (FEMA LE) eGFR calculated 73.4 Not Available [facility] [address] [facility], [place], [address], 05/16/2025 12:39:40 05/16/20 25 05/16/2025 CMP (FEMA LE) total protein 8.2 g/dL 6.0-8. 5 Not Available [facility] [address] [facility], [place], [address], 05/16/2025 12:39:40 05/16/20 25 05/16/2025 CMP (FEMA LE) total bilirubin 1.1 mg/dL 0.2-1. 3 Not Available [facility] [address] [facility], [place], [address], 05/16/2025 12:39:40 05/16/20 25 05/16/2025 CMP (FEMA LE) albumin 4.8 g/dL 3.5-5. 5 Not Available [facility] [address] [facility], [place], [address], 05/16/2025 12:39:40 05/16/20 25 05/16/2025 CMP (FEMA LE) globulin 3.4 calc Not Available [facility] [address] [facility], [place], [address], 05/16/2025 12:39:40 05/16/20 25 05/16/2025 CMP (FEMA LE) AST (SGOT) 40.0 U/L 0.0-46 .0 Not Available [facility] [address] [facility], [place], [address], 05/16/2025 12:39:40 05/16/20 25 05/16/2025 CMP (FEMA LE) altv (SGPT) 35.0 U/L 13.0-6 9.0 normal Not Available [facility] [address] [facility] 1, [place], [address], 05/16/2025 12:39:40 05/16/20 25 05/16/2025 CMP (FEMA LE) A/G ratio 1.4 ratio Not Available [facility] [address] [facility] 1, [place], [address], 05/16/2025 12:39:40 05/16/20 25 05/16/2025 CMP (FEMA LE) ALP phos 109.0 U/L 30.0-1 40.0 normal Not Available [facility] [address] [address], [place], [address], 05/16/2025 12:39:40 05/16/20 25 05/16/2025 CMP (FEMA LE) calcium 9.1 mg/dL 8.4-10 .5 Not Available [facility] [address] [address], [place], [address], 05/16/2025 12:39:40 05/16/20 25 05/16/2025 CMP (FEMA LE) sodium 134.0 mmol/ L 136.0- 145.0 low Not Available [facility] [address] [address], [place], [address], 05/16/2025 12:39:40 05/16/20 25 05/16/2025 CMP (FEMA LE) potassium 3.5 mmol/ L 3.5-5. 1 Not Available [facility] [address] [address], [place], [address], 05/16/2025 12:39:40 05/16/20 25 05/16/2025 CMP (FEMA LE) chloride 98.0 mmol/ L 98.0-1 10.0 normal Not Available [facility] [address] [facility] 1, [place], [address], 05/16/2025 12:39:40 05/16/20 25 05/16/2025 CMP (FEMA LE) C02 25.0 mmol/ L 22.0-3 1.0 Not Available [facility] [address] [facility] [address], [place], [address], 05/16/2025 12:39:40 05/16/20 25 05/16/2025 CMP (FEMA LE) anion gap 11.0 calc Not Available [facility] [address] [facility] 1, [place], [address], 05/16/2025 12:39:40 05/16/20 25 05/16/2025 CMP (FEMA LE) osmolality 277.4 calc Not Available [facility] [address] [address], [place], [address], 05/16/2025 12:39:40 05/16/20 25 05/16/2025 TSH TSH 2.33 uIU/m L 0.49-3 .82 Not Available [facility] [address] [address], [place], [address], 05/16/2025 13:17:07 05/16/20 25 05/17/2025 T4, FREE T4, free 2.0 NG/dL 0.8-1. 8 high Not Available [facility] [address] [place], [address], 05/17/2025 05:24:13 04/11/20 25 04/12/2025 XR, chest , 2 view No observ ation record ed. NATALIA [facility] ([facility]) [address] [place], [address], 04/13/2025 09:24:14 04/13/20 25 04/11/2025 XR, chest , 2 view No observ ation record ed. [facility] [address] [place], [address], 04/13/2025 17:59:17 05/16/20 25 04/04/2025 US, echoc ardio gram, trans [facility] [address] [place] [address] Ultras ound Report Signed Patien t: Deangelo Wright A Unit #: [id number] : [id number] Age/Se x: 79 / F ADM Date: Loc: U Room/B ed: 101-[address]: Estephania Priest MD Orderdahlia ng Provid er/Ord ering MD: Mikey Ferro MD Date of Servic e: Proced ure(s) : CV. echo transe sophag eal 14587 Access ion Number (s): [id number] ZA Report Number : [id number] Deangelo Wright Age: 79 Gender : F : 1944 Exam Date: 2024 13:23 Orderi ng Phys: Gurmeet Ferro MD (omcne t1/montez mu2) Techno logist : Exam Locati on: [facility]_ 3589 Accoun t Number : [id number] Indica tion: card conver denny BP: / HR: Rhythm : Sinus Techni aysha Qualit y: Good MEASUR EMENTS (Male / Female ) Normal Values FINDIN GS Left Ventri yoav Normal left ventri cular size, systol ic functi on and wall thickn ess, with no region al wall motion abnorm alitie s. Left ventri cular ejecti on fracti on is estima judie at 50%. Right Ventri yoav The right ventri yoav is normal in size and functi on. Right Atrium No intera trial shunt with bubble study or color Dopple r noted. No PFO noted. Left Atrium No thromb us presen t in the left atrial append age. No left atrial mass or thromb us visual ized. Mitral Valve Modera tely thicke estephania mitral valve. No mitral valve stenos is. Mild mitral valve regurg itatio n. Aortic Valve Modera te aortic valve calcif icatio n. No aortic valve stenos is. Trace aortic valve regurg itatio n. Tricus pid Valve Struct urally normal tricus pid valve withou t signif icant stenos is or regurg itatio n. Pulmon alva artery systol ic pressu re is normal . Pulmon ic Valve Struct urally normal pulmon ic valve withou t signif icant stenos is. There is no pulmon ic regurg itatio n. Perica rdium Normal perica rdium withou t effusi on. Aorta Normal ascend ing aorta dimens ion. IVC The inferi or vena cava appear s normal . CONCLU SIONS Normal left ventri cular size, systol ic functi on and wall thickn ess, with no region al wall motion abnorm alitie s. Left ventri cular ejecti on fracti on is estima judie at 50%. No intera trial shunt with bubble study or color Dopple r noted. No PFO noted. There is no perica rdial effusi on. No thromb us presen t in the left atrial append age. No left atrial mass or thromb us visual ized. Gurmeet Ferro MD (Elect anand barajas Signed ) Final Date: 04 April 2025 19:23 [email or web address] Not Available 2024 11:44:58 05/16/2005/18/2025 XR, chest , 2 view No observ ation record ed. [facility] ([facility]) [address] [place], [address], 05/23/2025 09:12:44 05/16/2005/16/2025 XR, chest , 2 view No observ ation record ed. [facility] ([facility]) [address] [place], [address], 05/17/2025 08:15:54 Result Notes None recorded. Problems Name Problem SNOMED Code Status Onset Date Resolution Date Notes Provider Name and Address Organization Details Recorded Time Paroxysma l atrial fibrillat ion 598589677 Active 2022 Jerrell Garcia [address], [address] [place] [address] 5, [facility] 3 11:22:13 Right hemipares is 514287785 Active 2022 Jerrell Garcia [address] [address] 5, [facility] 3 11:22:13 History of cerebrova scular accident 570567462 Completed 202210/20/2024 Fatimah Hill null, [facility] 5 13:58:37 Hyperlipi demia 97226838 Active [address], [address] [place] [address] 5, [facility] 3 11:22:13 Transplan judie liver present 530481941 Active [address], [address] [place] [address] 5, [facility] 3 11:22:13 Transplan judie kidney present 673304730 Active [address], [address] [place] [address] 5, [facility] 3 11:22:13 Moderate recurrent major depressio n 99649159 Active 2023 Jerrell Garcia [address], [address] [place] [address] 5, [facility] 4 08:31:13 Poor short-ter m memory 011532211 Active 2023 Fatimah velasquez [facility] 5 13:59:10 History of hepatitis C 634473880489 Completed 202310/20/2024 Fatimah velasquez, [facility] 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 5 13:59:22 History of renal failure 757714669 Completed 202310/20/2024 Fatimah velasquez, [facility] 5 13:59:03 History of liver disease 539898612 Completed 202310/20/2024 Fatimah velasquez [facility] 5 13:59:01 Gastroeso phageal reflux disease 853601263 Active 2023 Jerrell Garcia [address] [address] 5, [facility] 4 08:31:13 Hiatal hernia 39950342 Active 2023 Jerrell Garcia [address] [address], [facility] 4 08:31:13 Essential hypertens ion 61582468 Active 2023 Jerrell Garcia [address] [address] 5, [facility] 4 08:31:13 Idiopathi c periphera l neuropath y 52935774 Active 2023 Jerrell Garcia [address] 5, [facility] 4 08:31:13 Atrial fibrillat ion with rapid ventricul ar response 745076859905 109 Completed 202310/20/2024 Fatimahgabe Lynnee ron [facility] 5 13:58:51 Congestiv e heart failure 97810760 Active 2023 Jerrell GarciaDO [address] [place] [address], [address], [facility] 4 08:31:13 Hypothyro idism 37996257 Active 2023 Fatimah velasquez [facility] 5 13:59:05 Postmenop ausal state 99245549 Active 2024 Fatimah velasquez [facility] 5 13:59:13 Symptomat ic congestiv e heart failure 546209334 Active 2024 David velasquez [facility] 5 11:43:13 Problem Notes None recorded. Procedures Surgical History Date Name Laterality Status Provider Name and Address Organization Details Recorded Time 02/04/20 24 Joint Inj [place]- Shoulder, Hip, Knee completed David Stephenson [facility] 02/04/2024 15:27:32 transplantation to recipient completed Fatimah Hill [facility] 10/20/2024 15:07:35 hernia repair completed Fatimah Hill [facility] 10/20/2024 15:07:49 Imaging Results None recorded. Procedure Notes None recorded. Medical Equipment None Reported. Allergies Allergen ID Allergen Name Allergen Category Reaction Reaction Severity Criticality Documentation Date Start Date Code Code System Note Provider Name and Address Organization Details Recorded Time 1781 Product containin g penicilli n (product) medicatio n Not available Not available Not available 12/11/2022 50913 8001 [facility]ED [facility] 09:18:39 3976 Product containin g 3-hydroxy -3-methyl glutaryl- coenzyme A reductase inhibitor (product) medicatio n arthralgi a (joint pain) moderate low 01/28/2023 60848 009 SNOMED Jerrell Garcia, [address], [address], [facility] 3 11:30:30 3977 Xarelto medicatio n myalgias (muscle pain) severe low 01/28/2023 97388 99 RxNorm Jerrell Garcia, [address], [address], [facility] 3 11:31:02 91704 penicilli n G sodium medicatio n Not available Not available Not available 03/22/2023 9900 RxNorm Comme nt: Recor ded 08/29 11:35 AM by Mary Belcher e Visit ; Lanre dimas; Brandi ricks ce: *; Reaso n: Drug aller gy; ; [facility] 4 13:07:02 09802 Zetia medicatio n headache Not available low 04/29/20232022 60328 9 RxNorm Jerrell Garcia, [address], [address], [facility] 3 11:27:07 Medications Name Sig Start Date [...] height Body mass index (BMI) Body weight Oxygen saturation Oxygen saturation in Arterial blood by Pulse oximetry Heart rate Respiratory rate Systolic And Diastolic Provider Name and Address Organization Details Last Updated DateTime 5 160.02 cm 26.7 kg/m2 55947.6 6 g 96 % 96 % 73 /min 18 /min 136/68 mm[Hg] Fatimah Hill [facility] 5 17:28:50 Date Recorded Body height Body mass index (BMI) Body weight Oxygen saturation Oxygen saturation in Arterial blood by Pulse oximetry Heart rate Respiratory rate Systolic And Diastolic Provider Name and Address Organization Details Last Updated DateTime 5 160.02 cm 27.1 kg/m2 55164.0 3 g 93 % 93 % 75 /min 20 /min 130/66 mm[Hg] Fatimah Hill [facility] 5 11:18:45 Date Recorded Body height Body mass index (BMI) Body weight Oxygen saturation Oxygen saturation in Arterial blood by Pulse oximetry Heart rate Respiratory rate Systolic And Diastolic Provider Name and Address Organization Details Last Updated DateTime 5 160.02 cm 26.6 kg/m2 51906.9 6 g 96 % 96 % 66 /min 18 /min 130/70 mm[Hg] PA GARCIA [facility] 5 12:37:00 Social History Question Answer Notes LastModified by [employer] Details LastModified Time Tobacco Smoking Status Never Smoker Fatimah Hill [facility] 10/20/2024 15:06:33 What Is Your Level Of Caffeine Consumption? Moderate [email or web address] Information not available 10/20/2024 What Was The Date Of Your Most Recent Tobacco Screening? 10/20/2024 [email or web address] Information not available 10/20/2024 Sex: Unknown Functional Status Question Answer Note LastModified by [employer] Details LastModified Time Do you use any illicit or recreational drugs? No [email or web address] Information not available 12/11/2022 Do you or have you ever used any other forms of tobacco or nicotine? No [email or web address] Information not available 12/11/2022 What is your level of alcohol consumption? None [email or web address] Information not available 12/11/2022 Do you or have you ever used any nicotine-free cigarettes, vape, or chewing tobacco? No [email or web address] Information not available 10/20/2024 Mental Status None recorded. Family History Relationship Description Onset Age of this Age Resolved Age Notes LastModified by Organization Details LastModified Time Mother Heart disease Not available 2024 15:06:51 Medical History No medical history recorded. Gynecological HistoryNo gynecological history recorded. Obstetrics History GPAL:G 0 P 0 0 0 0 Immunizations Vaccine Type Date Status Note Provider Nam e and Address Organization Details Recorded Time Pneumococcal conjugate PCV 13 7 completed Fatimah velasquez [facility] 04/05/2024 13:55:08 Influenza, high-dose, trivalent, PF 7 completed Fatimah velasquez [facility] 04/05/2024 13:55:08 Influenza, split virus, trivalent, preservative 3 completed Fatimah velasquez [facility] 04/05/2024 13:55:08 Influenza, split virus, trivalent, PF 5 completed Fatimah velasquez [facility] 04/05/2024 13:55:08 Past Encounters Encounter ID Performer Location Encounter Start Date Encounter Closed Date Diagnosis/Indication Diagnosis SNOMED-CT Code Diagnosis ICD10 Code Diagnosis IMO Codes Diagnosis Note [id number] Jerrell Garcia DO [facility] ([facility]) [address] [place] [phone] 12/11/2022 08:49:02 12/17/2022 11:45:20 History of cerebrovascular accident 012238147 Z86.73 2019 right hemiparesi s with left MCA territory. nearly resolved. continue bp managment. on xarelto for afib. 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 MRI brain with 1.5 cm left singh radiata ischemic stroke. c/w Left MCA teritory. Carotid US and echo ok. Right hemiparesis 808542 009 G81.90 nearly resolved from cva 2018. Paroxysmal atrial fibrillation 248048564 I48.0 pt dealing with severe daily side effects from eliquis. will switch to xarelto. f/u in 6 wks. [id number] JANIA INGRAM [facility] ([facility]) [address] [place] [address] [phone] 5 01/13/2023 12:17:00 01/23/2023 13:52:14 Irritant contact dermatitis [id number] L24.9 [id number] Jerrell Garcia DO [facility] ([facility]) [address] [place] [address] 01/28/2023 10:34:12 01/28/2023 17:00:50 History of cerebrovascular accident 302236464 Z86.73 2019 right hemiparesi s with left MCA territory. nearly resolved. continue bp management . ASA 325 daily. Pt does not tolerate multiple statins. will start zetia CVA in 08/2018 with slurred speech, right sided facial droop and right sided weakness. MRI brain with 1.5 cm left singh radiata ischemic stroke. c/w Left MCA teritory. Carotid US and echo ok. Paroxysmal atrial fibrillation 504910344 I48.0 appears in NSR today. pt dealing with severe daily side effects from eliquis and xarelto. will change to full dose ASA, 325mg daily. pt has upcoming appt with Dr. Hughes, cardiology . I will get records. Right hemiparesis 545377 009 G81.90 asa daily. nearly resolved from cva 2019. Hyperlipidemia 89204399 E78.5 does not tolerate statins. will start zetia. counseled Type 2 hortensia betes mellitus 31303929 E11.69 E11.59 E11.22 I reviewed most recent labs with pt as per above. We reconciled medication s. We discussed diet, exercise, weight management . We discussed routine eye care and foot care. Pt to monitor glucose regularly. continue current medication s: nonerepeat labs: today Transplant ed liver present 765102729 Z94.4 continue care with transplant team in [facility] Transplant ed kidney present 801040889 Z94.0 continue care with transplant team in [facility] [id number] Jerrell Garcia DO [facility] ([facility]) [address] [place] [address] 02/17/2023 13:04:02 02/17/2023 19:29:29 Chest pain 77751700 R07.9 reviewed ER records. agree with Cardiac stress test as ordered by ER.pt to go to ER with wrosening/ recurrance of Chest pain. Hyperlipidemia 89327505 E78.5 does not tolerate statins. will start zetia. counseled [id number] Jerrell Garcia DO [facility] ([facility]) [address] [place] [phone] 5 04/29/2023 10:46:25 04/29/2023 18:38:17 Pain in left arm 220251710 M79.602 chronic, worsening, hx of falls remotely. will get xray. Hyperlipidemia 75943172 E78.5 does not tolerate statins. getting Headaches from zetia. will stop zetia, will get labs before considerin g another alternativ e. Transplant ed kidney present 086056230 Z94.0 continue care with transplant team [place], updated meds. taking tacrolimus 2.5mg bid, which is decreased. [id number] Jerrell Garcia DO [facility] ([facility]) [address] [place] [phone] 5 06/11/2023 10:31:22 06/11/2023 11:20:45 Hyperlipidemia 84105369 E78.5 [id number] Edward Mathur MD [facility] ([facility]) [address] [place] [phone] 5 09/17/2023 10:24:31 09/17/2023 16:07:08 Hyperlipidemia 65162686 E78.5 [id number] Jerrell Garcia DO [facility] ([facility]) [address] [place] [address] [phone] 5 12/24/2023 10:28:24 12/24/2023 10:43:32 Hyperlipidemia 06660675 E78.5 [id number] Jerrell Garcia DO [facility] ([facility]) [address] [place] [phone] 5 01/01/2024 10:56:06 01/01/2024 12:04:09 Hyperlipidemia 79234431 E78.5 does not tolerate statins. getting Headaches from zetia. will stop zetia, will get labs before considerin g another alternativ e. Transplant ed kidney present 683588084 Z94.0 continue care with transplant team [place], updated meds. taking tacrolimus 2.5mg bid, which is decreased. 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 she was on hemodialys is for a few years before both liver and kidney transplant . has done well since wiithout dialysis or liver problems. remains on tacrolimus . Paroxysmal atrial fibrillation 940016183 I48.0 on full dose ASA. also under the care of Cardiology at [facility]. Right hemiparesis 671621 009 G81.90 asa daily. nearly resolved from cva 2019. History of cerebrovascular accident 203753511 Z86.73 2019 right hemiparesi s with left MCA territory. nearly resolved. continue bp management . ASA 325 daily. Pt does not tolerate multiple statins. will start zetia CVA in 08/2018 with slurred speech, right sided facial droop and right sided weakness. MRI brain with 1.5 cm left singh radiata ischemic stroke. c/w Left MCA teritory. Carotid US and echo ok. Transplant ed liver present 036733987 Z94.4 continue care with transplant team [place] Moderate r ecurrent major depression 83862910 F33.1 Counseled patient extensivel y. She does not want to be on medication s. Most of this stems from some of her physical issues including her swallowing and memory issues. We will work on evaluating and treating these issues. No antidepres pavan medication s at this time per patient request. Will continue to monitor closely. Esophageal varices without bleeding 49250574 I85.00 History of multiple banding's prior to liver transplant in 2008. No interventi ons since.Deandra ent with signs and symptoms of dysphagia, odynophagi a, and esophageal narrowing. Will get esophagram and consider referral to GI specialist for EGD with possible interventi ons. History of hepatitis C 5481419488 9101 Z86.19 Contracted while in hospital in 1984, undiagnose d until 2004. Now status post liver transplant . Poor short -term memory 325733540 R41.3 Progressin g for the last 6 to 12 months. Patient has history of CVA, she is concerned about dementia, she is on tacrolimus with advanced age. We will send to neurology for further evaluation . 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 she was on hemodialys is for a few years before both liver and kidney transplant . has done well since wiithout dialysis or liver problems. remains on tacrolimus . 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 she was on hemodialys is for a few years before both liver and kidney transplant . has done well since wiithout dialysis or liver problems. remains on tacrolimus . Esophageal dysphagia 408 74374 R13.19 worsening for 6 mts. will get espohagram and consider EGD referral. [id number] Jerrell Garcia DO [facility] ([facility]) [address] [place] [address] [phone] 5 01/27/2024 15:09:55 01/27/2024 17:16:27 Gastroesophageal reflux disease 017303910 K21.9 01/27/24- Reviewed and discussed recent swallow study, will start PPI. Hiatal hernia 34309819 K 44.9 01/27/24- Reviewed and discussed recent swallow study. Counseled on diagnosis, treatment options including medication s and possible side effects. Counseled we try to avoid surgery if we can. Starting PPI. Bilateral shoulder joint pain 2847294186 6130618 M25.511 M25.512 01/27/24- XR L and R shoulders today, consider injection. Will order PT, pt prefers [facility]. [id number] Jerrell Garcia DO [facility] ([facility]) [address] [place] [address] [phone] 5 02/04/2024 14:33:12 02/04/2024 15:44:56 Bilateral shoulder joint pain 1921600207 3529979 M25.511 M25.512 02/04/24- Reviewed and discussed XR results, injection in L shoulder today, Ortho scheduled for evaluation of right shoulder on 02/27/24.01/26- XR L and R shoulders today, consider injection. Will order PT, pt prefers [facility]. Essential hypertension 83498705 I10 02/04/24- counseled ears look fine today, BP is running higher, likely the cause of her hearing her heartbeat in her ear. Discussed options of increasing Metoprolol , she prefers to wait and see if this improves. [id number] Jerrell Garcia DO [facility] ([facility]) [address] [place] [address] [phone] 5 03/03/2024 14:02:56 03/03/2024 16:13:46 Essential hypertension 52709689 I10 03/03/24- Cardio restarted Amlodipine 2.5mg daily, counseled do [...] metoprolol from 25 bid to 50 bid Gastroesop hageal reflux disease 969678880 K21.9 01/27/24- Reviewed and discussed recent swallow study, will start PPI. Bilateral shoulder joint pain 5506536276 3564534 M25.511 M25.512 03/03/24- improving with PT.02/04/24 - Reviewed and discussed XR results, injection in L shoulder today, Ortho scheduled for evaluation of right shoulder on 02/27/24.01/26- XR L and R shoulders today, consider injection. Will order PT, pt prefers [facility]. [id number] Jerrell Garcia DO [facility] ([facility]) [address] [place] [address] [phone] 5 04/05/2024 13:31:07 04/05/2024 16:38:29 Essential hypertension 71917766 I10 04/05/24: stable. continue meds.- Cardio restarted Amlodipine 2.5mg [...] metoprolol from 25 bid to 50 bid Gastroesop hageal reflux disease 862658378 K21.9 04/05/24: stable. continue PPI. 01/27/24- Reviewed and discussed recent swallow study, will start PPI. Bilateral shoulder joint pain 2123910682 1378815 M25.511 M25.512 03/03/24- improving with PT.02/04/24 - Reviewed and discussed XR results, injection in L shoulder today, Ortho scheduled for evaluation of right shoulder on 02/27/24.01/26- XR L and R shoulders today, consider injection. Will order PT, pt prefers [facility]. Idiopathic peripheral neuropathy 70439132 G60.9 progessive for a few years. unclear eitiology will get labs today. back xray today. consider NCS. Acute low back pain 2788 28580 M54.50 will get xrays to eval for radiculopa thy. will consider MRI vs NCS. [id number] Jerrell Garcia DO [facility] ([facility]) [address] [place] [address] [phone] 5 05/20/2024 11:07:52 05/20/2024 12:38:06 Chest pain 59273820 R07.9 Appears to be secondary to her A-fib with RVR. I Reviewed ER records. agree with Cardiac stress test as ordered by ER.pt to go to ER with wrosening/ recurrance of Chest pain. Paroxysmal atrial fibrillation 327734175 I48.0 on full dose ASA. also under the care of Cardiology at [facility]. History of cerebrovascular accident 887771574 Z86.73 2019 right hemiparesi s with left MCA territory. nearly resolved. continue bp management . ASA 325 daily. Pt does not tolerate multiple statins. will start zetia CVA in 08/2018 with slurred speech, right sided facial droop and right sided weakness. MRI brain with 1.5 cm left singh radiata ischemic stroke. c/w Left MCA teritory. Carotid US and echo ok. Atrial fib rillation with rapid ventricular response [id number] 89020 I48.91 She is symptomati c. Is currently in relation which has an undulating heart rate from 50s to 130s. It appears this episode started around 05/16/2024 or 05/17/2024. She is also dealing with undulating blood pressures. Counseled patient on diagnosis and risks. We will have her stop her aspirin and start low-dose Eliquis due to age and her tacrolimus .We will have patient stop her amlodipine and we will start diltiazem. Continue her metoprolol . Stop the galantamin e which may be the cause of this episode of atrial fibrillati on. Counseled patient she will need to follow-up with her cardiologi st, Dr. Minor, within the next week. She is to go to ER with any worsening. Counseled patient that she will likely need either chemical or electrical cardiovers ion and echocardio gram. [id number] Salomón Le MD [facility] ([facility]) [address] [place] [address] [phone] 5 08/10/2024 15:24:48 08/10/2024 17:50:03 [id number] Jerrell Garcia DO [facility] ([facility]) [address] [place] [address] [phone] 5 08/11/2024 13:18:51 08/11/2024 18:01:51 Congestive heart failure 51261339 I50.9 08/11/24- concern for continued CHF not reespondin g to low dose lasix. We will repeat [...] if she is not significan tly better. Paroxysmal atrial fibrillation 648707098 I48.0 08/11/24- Continue Amiodarone , f/u with Cardiology . [id number] Jerrell Garcia DO [facility] ([facility]) [address] [place] [address] [phone] 5 08/16/2024 11:02:21 08/16/2024 12:47:09 Congestive heart failure 02968135 I50.9 08/16/24: CHF appears mildly improved, but not optimized. [...] if she is not significan tly better. Paroxysmal atrial fibrillation 711016735 I48.0 Continue Amiodarone with weaning per cardiology , f/u with Cardiology . [id number] Jerrell Garcia DO [facility] ([facility]) [address] [place] [address] [phone] 5 09/02/2024 11:35:43 09/02/2024 13:42:51 Congestive heart failure 68092823 I50.9 09/02/24: Lasix and Potassium PRN with 3lb or [...] if she is not significan tly better. Essential hypertension 99416076 I10 09/02/24- Taking Amlodipine 2.5mg per Cardiology .04/05/24: stable. [...] metoprolol from 25 bid to 50 bid Gastroesop hageal reflux disease 409582109 K21.9 09/02/24- stable, continue PPI, tolerating well.: stable. continue PPI. 01/27/24- Reviewed and discussed recent swallow study, will start PPI. Hyperlipidemia 62602117 E78.5 does not tolerate statins. getting Headaches from zetia. will stop zetia, will get labs before considerin g another alternativ e. Paroxysmal atrial fibrillation 049815815 I48.0 09/02/24: Off Amiodarone per Cardiology . Counseled take Metoprolol 25mg, 1/2tablet, twice daily. Hypothyroidism 24790662 E03.9 Levothyroi d 25mcg po q AM # 90, refill 3 Postmenopausal state 764 32126 Z78.0 Bone Scan today. History of hepatitis C 5887318414 9101 Z86.19 Contracted while in hospital in 1984, undiagnose d until 2004. S/p treatment and cure. Now status post liver transplant . [id number] Jerrell Garcia DO [facility] ([facility]) [address] [place] [address] [phone] 5 10/20/2024 14:35:21 10/21/2024 13:47:18 Congestive heart failure 23542151 I50.9 10/20/24: Improved. Continue Lasix PRN, to let us [...] if she is not significan tly better. Essential hypertension 40660542 I10 10/20/24: Reviewed BP and HR log, counseled take [...] metoprolol from 25 bid to 50 bid Paroxysmal atrial fibrillation 364641465 I48.0 10/20/24: To take Metoprolol 25mg BID.09/02/24 : Off Amiodarone per Cardiology . Counseled take Metoprolol 25mg, 1/2tablet, twice daily. Hypothyroidism 39121414 E03.9 10/20/24: Levothyrox ine 25mcg started 08/18/24, repeat lab today. Counseled on diagnosis, treatment options including medication s and possible side effects. Explained she will likely need to take a thyroid med from now on. 4: Levothyroi d 25mcg po q AM # 90, refill 3 [id number] Jerrell Garcia DO [facility] ([facility]) [address] [place] [address] [phone] 5 12/09/2024 10:33:48 12/10/2024 10:27:47 Hypothyroidism 11556378 E03.9 10/20/24: Levothyrox ine 25mcg started 08/18/24, repeat lab today. Counseled on diagnosis, treatment options including medication s and possible side effects. Explained she will likely need to take a thyroid med from now on. 4: Levothyroi d 25mcg po q AM # 90, refill 3 [id number] Jerrell Garcia DO [facility] ([facility]) [address] [place] [address] [phone] 5 12/14/2024 14:19:55 12/14/2024 18:03:42 Hypothyroidism 38064537 E03.9 12/14/24: Reviewed and discussed lab, reassured pt if she had been taking her Levothyrox ine wrong this would be abnormal. Continue current tx, Levothyrox ine 50mcg daily, this increased from 25mcg in Sep after TSH was drawn.10/20: Levothyrox ine 25mcg started 08/18/24, repeat lab today. Counseled on diagnosis, treatment options including medication s and possible side effects. Explained she will likely need to take a thyroid med from now on. 4: Levothyroi d 25mcg po q AM # 90, refill 3 Congestive heart failure 68543437 I50.9 12/14/24: Counseled take Furosemide 1 tablet daily.10/20: [...] if she is not significan tly better. Poor short -term memory 909965748 R41.3 12/14/24: Counseled continue Memantine, HR running well on it, tolerating well.Progr essing for the last 6 to 12 months. Patient has history of CVA, she is concerned about dementia, she is on tacrolimus with advanced age. We will send to neurology for further evaluation . Transplant ed kidney present 754195486 Z94.0 continue care with transplant team in [facility], updated meds. taking tacrolimus 2.5mg bid, which is decreased. 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 she was on hemodialys is for a few years before both liver and kidney transplant . has done well since wiithout dialysis or liver problems. remains on tacrolimus . [id number] Jerrell Garcia DO [facility] ([facility]) [address] [place] [address] [phone] 5 02/15/2025 12:18:18 02/16/2025 12:25:27 History of fall 200407218 Z91.81 R53.1 R26.2 R54 8482659 Counseled continue walking with spouse for exercising , ok to start Silver Sneakers, using chair exercises, not attending a gym yet. Vertigo 277012918 R42 92865 02/15/25: PT at [facility], counseled. Moderate r ecurrent major depression 03569510 F33.1 Stable. Essential hypertension 33812022 I10 Stable.2/2 02/16: Reviewed BP and HR log, counseled take Metoprolol at 25mg BID. Continue following with Cardiology , they are considersharon g changing Amlodipine to Diltiazem if HR [...] metoprolol from 25 bid to 50 bid [id number] Jerrell Garcia DO [facility] ([facility]) [address] [place] [address] [phone] 5 04/11/2025 17:02:44 04/12/2025 08:24:03 Paroxysmal atrial fibrillation 678206176 I48.0 04/11/25: s/p cardiac ablation 04/04/25. Taking Amiodarone . Keep upcoming appt with Cardiology .10/20/24: To take Metoprolol 25mg BID.09/02/24 : Off Amiodarone per Cardiology . Counseled take Metoprolol 25mg, 1/2tablet, twice daily. Disturbanc e in sleep behavior 93534148 G47.9 17784 Counseled ok to take Melatonin and occasional ly a 25mg Benadryl to aid with sleep. Hypothyroidism 55682577 E03.9 04/11/25: Counseled TSH lab today, this could be contributi ng to some of her symptoms she is experienci ng today.12/14: Reviewed and discussed lab, reassured pt if she had been taking her Levothyrox ine wrong this would be abnormal. Continue current tx, Levothyrox ine 50mcg daily, this increased from 25mcg in Sep after TSH was drawn.10/20: Levothyrox ine 25mcg started 08/18/24, repeat lab today. Counseled on diagnosis, treatment options including medication s and possible side effects. Explained she will likely need to take a thyroid med from now on. 4: Levothyroi d 25mcg po q AM # 90, refill 3 Dyspnea 702740967 R06.00 [id number] 04/11/25: CXR today. [id number] Jerrell Garcia DO [facility] ([facility]) [address] [place] [address] [phone] 5 05/16/2025 10:50:17 05/17/2025 09:11:34 Symptomatic congestive heart failure 771942392 I50.30 77124265 05/16/25: Counseled we will add additional diuretic, Spironolac [...] she is not significan tly better. Dyspnea 380375361 R06.00 [id number] 05/16/25: Repeat CXR today.04/11: CXR today. Hypothyroidism 58937314 E03.9 05/16/25: TSH and Free T4 today.04/11: Counseled TSH lab today, this could be contributi ng to some of her symptoms she is experienci ng today.12/14: Reviewed and discussed lab, reassured pt if she had been taking her Levothyrox ine wrong this would be abnormal. Continue current tx, Levothyrox ine 50mcg daily, this increased from 25mcg in Sep after TSH was drawn.10/20: Levothyrox ine 25mcg started 08/18/24, repeat lab today. Counseled on diagnosis, treatment options including medication s and possible side effects. Explained she will likely need to take a thyroid med from now on. 4: Levothyroi d 25mcg po q AM # 90, refill 3 [id number] Jerrell Garcia DO [facility] ([facility]) [address] [place] [address] [phone] 5 05/19/2025 11:30:49 05/26/2025 10:32:50 Symptomatic congestive heart failure 553742083 I50.30 [id number] 05/19/25: Improved, continue Spironolac tone and Entresto, [...] she is not significan tly better. Dyspnea 565331242 R06.00 [id number] 05/19/25: improved.: Repeat CXR today.04/11: CXR today. [id number] Jerrell Garcia DO [facility] ([facility]) [address] [place] [address] [phone] 5 06/16/2025 12:00:08 06/17/2025 10:06:54 Essential hypertension 32560407 I10 Stable.09/26 02/16: Reviewed BP and HR [...] metoprolol from 25 bid to 50 bid [id number] Jerrell Garcia DO [facility] ([facility]) [address] [place] [address] 5 06/17/2025 10:01:04 06/17/2025 10:04:05 Serum sodium below reference range 4990861095 R79.89 08347095 Health Concerns Section Related Observation LastModified by Organization Detai ls LastModified Time None Recorded Concern Status LastModified by Organization Details LastModified Time None Recorded Advance Directives Directive None Recorded Payers Insurance Date Sequence Insurance Name Policy Number Policy Linn Covered Member ID Linn Member ID Guarantor Name 09/02/2024 2 HARINDER Wright [id number] P estela Solomon Kyle 06/16/2025 1 [employer] (MEDICARE REPLACEMENT/ ADVANTAGE - PPO) [id number] Echo Wright [id number] Echo Wright Notes Date Note Type Note Provider Name and Address Organization Details Recorded Time 04/11/2025 text/html ROS as noted in the HPI Pt presents for hospital f/u She reports around 03/25/25 she went into Afib, had family in town so she didn't do anything about it. It continued and she saw Dr. Minor on 03/28/25, who started her on Flecainide. She didn't have improvement with that, decided to see ER on 04/01/25. Admitted to [facility] 04/01-08/18:Discharge Diagnosis1. Paroxysmal atrial fibrillation:2. Acute exacerbation of congestive heart failure:3. Primary hypertension: Hospital CourseAs per the retrospective notes and the patient :Echo Wright is a 79 year old female has s history of Atrial fibrillation on chronic anticoagulation, kidney and liver transplant recipient on tacrolimus for immunosuppression,chr onic vertigo, CVA, hypertension, PVC, Left bundle branch block, Hyperlipidemia. Has a history of CVA. THe heart rate goes up and down from 35- 125 following with the cardiology. Presented to ER with chest heaviness associated with shortness of breath that has worsened in the past few days and developed orthopnea and PND. but did not report any recent sick contacts or travels. The patient is compliant to her medications. Her UA showed likelihood of UTI however there was no leukocytosis. Patient did not report any fever, chills or any weight loss. No abdominal pain or diarrhea. No recent headaches change in her vision. No syncope or presyncope. No skin rashPatient was admitted and was status post ablation after having had CJ and then was placed on amiodarone. Since then patient had converted to sinus rhythm from an atrial fibrillation with rapid ventricular rate with tacky arrhythmia and some bradycardia at arrhythmia now and the heart rate stays stable sinus rhythm high 60s to low 70s. Patient is good now to go I rounded with cardiology on the patient this morning all questions were answered patient felt very satisfied at the bedside via all smiling and they were happy. Patient is now discharged to follow-up with the PCP within a week as well as following up with cardiology Dr. Ferro within 1 week. She has appt with Dr. Minor on 04/15/25. She reports no recurrence of Afib, however she feels tired, fatigued, feels like she can't get back on her feet after this recent hospital stay. She is concerned that she is having s/e from the Amiodarone, per the sheet she received from the hospital. She is experiencing chest tightness, trouble breathing, cp, cough, loss of appetite, wt gain, trouble sleeping, and unusual tiredness. She reports since starting Amiodarone she lays awake at night.She hasn't tried Melatonin, but does have some at home, wants to be sure it's safe with her medications. She has her bp log with her and bp is running 112/78 to 144/70 TSH last checked 12/09/24 at 3.66.Continues Levothyroxine 50mcg daily. Jerrell Garcia, DO [address] [place] [address], [phone], [facility], [place] 04/13/2025 20:15:53 05/16/2025 text/html ROS as noted in the HPI Pt presents for recheck for 1 month fatigue, dyspnea Plan 04/14/25, phone f/u after lab and CXR:Please let pt know her thyroid levels are ok.continue with f/u with cardiology, if fatigue or other symptoms worsening f/u with me. thanks (kiet, 04-13-2025)Last note for TSH : alsoLet her know her chest xray continues to show some mild fluid in the bottom of her lungs. we will want to repeat a CXR either with cardiology or with me in about 1 mt. == She c/o weakness and SOB. She has increased SOB when laying flat. She has been propping herself up on the sofa or recliner to sleep, has tried to sleep in the bed, couldn't tolerate it. She c/o continues excess fluid, doesn't feel Furosemide is helping, taking 40mg twice daily. She has been on Amiodarone, hasn't tolerated this well, started cutting this in half approx 2 weeks ago.She was told to take the Amiodarone for one month, if not tolerating well after one month they would consider changing ( however her appt was set to f/u in 2 months). Next appt with Cardio in 2 weeks. She last saw Keisha ADDISON, they are open to transferring care to [facility] in order to see a Gravel Wheeler, after their next appt. CJ 04/04/25:CONCLUSIONSNo rmal left ventricular size, systolic function and wallthickness, with no regional wall motion abnormalities. Leftventricular ejection fraction is estimated at 50%.No interatrial shunt with bubble study or color Doppler noted.No PFO noted.There is no pericardial effusion.No thrombus present in the left atrial appendage. No left atrialmass or thrombus visualized. Today she has had tremors to her arms and hands, this has only occurred today. She has leg pain that she rates 3/10 She has bp log with her and is running between 124/61 to 131/62 Jerrell Garcia, [address] [place], [phone], [place] - [facility], [place] 05/19/2025 12:42:22 05/19/2025 text/html ROS as noted in the HPI Pt presents for recheck for 3 days fatigue, dyspnea Plan last visit:Diastolic CHF with preserved left ventricular function, NYHA class : Counseled we will add additional diuretic, Spironolactone 50mg each am, to use with Furosemide, to help prevent loss of Potassium. Continue current dose of Furosemide 40mg BID. Will also start Entresto. Counseled on diagnosis, treatment options including medications and possible side effects. Reassured we have good Gravel Wheeler here, we will see if she sees the new Gravel Wheeler at her next appt, rather than the midlevel, then she can continue care locally. Pt agrees. F/u 2 days. ========= She reports she is feeling better as far as SOB.Taking Spironolactone and Entresto, feels like she is tolerating well. She is experiencing significant dizziness. Jerrell Garcia, DO [address] [place] [address], [phone], [facility], [place] 05/19/2025 12:53:27 OBGyn Episode No OBEpisode recorded.
--- OUTSIDE RECORDS SUMMARY | 2025-06-18 11:12 | XMS_ITS | Encounter Summary ---
Author Organization [facility] Address [address] [place] [address] Care Team Providers Care Risk Reduction Counselor Name Role Phone Smith Martínez DO Primary Care Provide r Encounter Details Date Type Department Care Team ([facility] Contact Info) Description 12/12/2004 Outpatient Historical [facility] Ligia Parra, [facility] [address] [address] Social History Tobacco Use Types Packs/Day Years Used Date Smoking Tobacco: Never Assessed Comments Unknown Sex and Gender Information Value Date Recorded Sex Assigned at Not on file Legal Sex Female 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
--- OUTSIDE RECORDS SUMMARY | 2025-06-18 11:12 | XMS_ITS | Encounter Summary ---
Author Organization [facility] Address [address] [place] [address] Care Team Providers Care Quilting Machine Operator Name Role Phone Smith Martínez DO Primary Care Provide r Encounter Details Date Type Department Care Team (Latest Contact Info) Description 12/12/2004 Outpatient 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
--- OUTSIDE RECORDS SUMMARY | 2025-06-18 11:12 | XMS_ITS | Encounter Summary ---
Author Organization [facility] Address [address] [place] [address] Care Team Providers Care Doctor Of Nurse Anesthesia Name Role Phone Smith Martínez DO Primary Care Provide r Encounter Details Date Type Department Care Team (Latest Contact Info) Description 12/12/2004 Outpatient [facility] Gastroenterology[address] [place] [address] Sloan Vickers MD [address] [place] [address] [address] [place] [address] VIR HEP NEC W/O COMA W HEP C CHRON (CMS/HCC) (Primary Dx); CIRRHOSIS OF LIVER NOS (CMS/HCC) Social History Tobacco Use Types Packs/Day Years Used Date Smoking Tobacco: Never Assessed Comments Unknown Sex and Gender Information Value Date Recorded Sex Assigned at Not on file 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
--- OUTSIDE RECORDS SUMMARY | 2025-06-18 11:12 | XMS_ITS | Encounter Summary ---
Author Organization [facility] Address [address] [place] [address] Care Team Providers Care Vice President Financial Name Role Phone Smith Martínez DO Primary Care Provide r Encounter Details Date Type Department Care Team (Latest Contact Info) Description 11/28/[address] [facility] Cardiovascular Services [address] 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
--- OUTSIDE RECORDS SUMMARY | 2025-06-18 11:12 | XMS_ITS | Encounter Summary ---
Author Organization [facility] Address [address] [place] [address] Care Team Providers Care Cutting Supervisor Name Role Phone Smith Martínez DO Primary Care Provide r Encounter Details Date Type Department Care Team (Latest Contact Info) Description 11/28/2004 Outpatient Historical [facility] Sherrie Allen FNP NO ADDRESS ON FILE VIR HEP NEC W/O COMA W HEP C CHRON (CMS/HCC) (Primary Dx); ANEMIA NEC; CHEST PAIN NOS Social History Tobacco Use Types Packs/Day Years Used Date Smoking Tobacco: Never Assessed Comments Unknown Sex and Gender Information Value Date Recorded Sex Assigned at Not on file 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
[2025-06-18 14:06] LABS: Sodium 122 mmol/L (136-145)
--- NOTE | 2025-06-18 14:27 | P.PN_ITS ---
Subjective 2 Subjective: Patient was seen this, currently alert oriented x 3, following commands no headache, no blurry vision, no nausea, vomiting Vitals/I&O/Wt Last Vital Signs Temp 97.8 F 06/18/25 11:23 Pulse 51 L 06/18/25 14:00 Resp 16 06/18/25 11:23 BP 108/54 06/18/25 11:23 Pulse Ox 93 06/18/25 11:23 O2 Del Method Nasal Cannula 06/18/25 11:23 O2 Flow Rate 2 06/17/25 20:51 06/17/25 06/18/25 06/18/25 22:59 06:59 14:59 Intake Total 1000 / 1000 100 / 1100 820 / 820 Output Total 500 / 500 500 / 500 Balance 1000 / 1000 -400 / 600 320 / 320 Weight last 48 hrs Weight 67.54 kg Weight 69.218 kg Weight 69.4 kg Physical Exam 2 Const: COMMON NORMALS: no acute distress and patient oriented x3 Resp: COMMON NORMALS: normal respiratory effort, No retractions, No use of accessory muscles and clear to auscultation bilaterally AUSCULTATION: clear to auscultation bilaterally Cardio: COMMON NORMALS: regular rate, regular rhythm, S1 normal heart sound present and S2 normal heart sound present RATE: regular rate RHYTHM: r egular rhythm HEART SOUNDS: S1 normal heart sound present and S2 normal heart sound present GI: COMMON NORMALS: Normal to inspection, nondistended, normoactive bowel sounds present and non-tender Extremity: COMMON NORMALS: no pedal edema Neuro: COMMON NORMALS: patient oriented x3 Psych: COMMON NORMALS: mental status grossly normal Data 06/18/25 03:40 06/18/25 13:42 Micro: Microbiology 06/17/25 16:14 Blood Culture - Preliminary Blood SPECIMEN COLLECTED 06/17/25 16:12 Blood Culture - Preliminary Blood SPECIMEN COLLECTED A&P Assessment and plan 1. Diastolic heart failure secondary to hypertension: 2. Pulmonary hypertension: 3. Atrial fibrillation: 4. Acute hyponatremia: 5. CVA (cerebral vascular accident): 6. Dizziness: 7. 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, diuresis - Urine sodium 68, serum osmolality - TSH - Monitor serum sodium every 6 hours - Fluid restrictions of 1000 cc, replace salt tablets no - Monitor closely Dizziness - CT head acute findings, UA within normal limits, History of atrial fibrillation continue Eliquis Diastolic CHF continue Lasix History of liver transplant, history of transplant - Continue tacrolimus - Check tacrolimus levels Hypothyroidism, levothyroxine Full code Eliquis for DVT prophylaxis PDMP PDMP Reviewed: Not Reviewed Attestations 2 Medical Necessity Statement*: Patient requires presents for hyponatremia Diagnoses Diastolic heart failure secondary to hypertension I11.0; I50.30 Pulmonary hypertension I27.20 Atrial fibrillation I48.91 Acute hyponatremia E87.1 CVA (cerebral vascular accident) I63.9 Dizziness R42 Generalized weakness R53.1
--- NOTE | 2025-06-18 17:22 | PC.NURSE ---
Per Dr. Nicolas, hold pm metoprolol for HR of 49
[2025-06-18] MEDS: MELATONIN 3 MG TABLET PO (21:15)
[2025-06-18] MEDS: pantoprazole 40 mg SDV IVP (21:15)
[2025-06-19] VITALS (7 sets, daily range): BP systolic 106–123; BP diastolic 57–72; PULSE 58–67; RESP 16; TEMP 36.4–36.8; O2SAT 90–93
[2025-06-19 01:19] LABS: Sodium 129 mmol/L (136-145)
[2025-06-19 04:47] LABS: Hematocrit 30.6 % (36-47); Hemoglobin 10.20 g/dL (11.27-16.99); Mean Corpuscular HGB Conc 33.3 g/dL (30-55); Mean Corpuscular Hemoglobin 29.8 pg (27-33); Mean Corpuscular Volume 89.5 fl (85-98); Nucleated Red Blood Cells % 0 %; Platelet Count 169 10^3/cmm (157-399); Red Blood Count 3.42 10^6/uL (3.85-5.65); White Blood Count 4.52 10^3/uL (3.29-11.43)
[2025-06-19] MEDS: APIXABAN 2.5 MG TABLET PO (04:52)
[2025-06-19 05:09] LABS: Alanine Aminotransferase 40 U/L (0-33); Albumin Level 3.8 g/dL (3.5-5.2); Alkaline Phosphatase 90 U/L (35-105); Aspartate Amino Transferase 26 U/L (0-32); Blood Urea Nitrogen 16 mg/dL (8-23); Calcium 8.7 mg/dL (8.5-10.5); Carbon Dioxide 21 mmol/L (22-29); Chloride 94 mmol/L (98-107); Creatinine Clr Calc Pharmacy 45.8499; Globulin 2.2 g/dL (1.3-4.6); Glucose 90 mg/dL (65-115); Osmolality Calculated 271 mOsm/kg (285-295); Sodium 130 mmol/L (136-145); Total Protein 6.0 g/dL (6.6-8.7)
[2025-06-19 05:20] LABS: Anion Gap 19.7 (5-19); Potassium 4.7 mmol/L (3.5-5.1)
--- NOTE | 2025-06-19 10:59 | P.DS_ITS ---
Discharge Providers Date of Admission: 06/17/25 14:38 Date of Discharge: June 19, 2025 Attending Provider at Admission: Boo Nicolas MD Attending Provider at Discharge: Boo Nicolas MD Primary Care Provider: Mason Mcdonough DO Diagnoses at Discharge Discharge Diagnosis 1. Diastolic heart failure secondary to hypertension: 2. Pulmonary hypertension: 3. Paroxysmal atrial fibrillation: 4. Acute hyponatremia: 5. Cerebrovascular accident (CVA), unspecified mechanism: 6. Dizziness: 7. Generalized weakness: Reason for Visit Reason for Visit: Abnormal Labs Hospital Course Hospital Course Echo Wright is a 80 year old female with a past medical history of kidney transplant, liver transplant, defibrillation Eliquis, history of CVA, history of hypothyroidism, hypertension who presents [facility] due to weakness, fatigue, dizziness, hyponatremia. Patient reports she has been using Lasix 40 mg twice daily, that dose has not been decreased. She has been drinking at least 6 to 8 ounces, 6 times a day, denies any fall, no fevers, no chills, no nausea, no vomiting, no dizziness, no facial droop, no slurring of words, no focal weakness, no seizure-like episodes Patient was admitted to [facility] for hyponatremia, likely associated with diuresis, SIADH. Patient's urine sodium was 68, was placed on fluid restrictions, salt tablets, overall serum sodium improved to 130. Patient is alert and oriented x 3, following all commands, no dizziness, no lightheadedness, ambulating without symptomatology. Patient will be discharged on fluid restrictions as outpatient, salt tablets which should be weaned as outpatient due to risk of CHF exacerbation, with close follow-up with primary care provider to recheck serum sodium. Physical Exam Const: COMMON NORMALS: no acute distress and patient oriented x3 Resp: COMMON NORMALS: normal respiratory effort, No retractions, No use of accessory muscles and clear to auscultation bilaterally AUSCULTATION: clear to auscultation bilaterally Cardio: COMMON NORMALS: regular rate, regular rhythm, S1 normal heart sound present and S2 normal heart sound present RATE: regular rate RHYTHM: regular rhythm HEART SOUNDS: S1 normal heart sound present and S2 normal heart sound present GI: COMMON NORMALS: Normal to inspection, nondistended, normoactive bowel sounds present and non-tender Extremity: COMMON NORMALS: no calf tenderness and no pedal edema Neuro: COMMON NORMALS: patient oriented x3 Psych: COMMON NORMALS: mental status grossly normal Discharge Data Studies Completed and Pending Completed Studies During Hospitalization Category Date Time Status CT head wo con* 03643 Routine Cat Scan 06/17/25 19:52 Completed CXRP [XR chest 1V portable 52364] Stat Exams 06/17/25 13:13 Completed Pending at discharge Category Date Time Status Blood Culture Stat Lab 06/17/25 16:14 Results Complete Blood Count w/Auto AM LABS Lab 06/20/25 04:00 Ordered Comprehensive Metabolic Panel AM LABS Lab 06/20/25 04:00 Ordered Drug Screen Serum [Serum Drug Panel 7] Routine Lab 06/17/25 15:12 Received Tacrolimus, LS/MS/MS Routine Lab 06/17/25 15:12 Received Radiology Impressions Chest X-Ray 06/17/25 13:13 Impression: 1. Cardiomegaly and atherosclerosis. 2. Small bilateral pleural effusions unchanged. Head CT 06/17/25 19:52 IMPRESSION: No acute intracranial abnormality. Laboratory Results WBC 4.52 10^3/uL (3.29-11.43) 06/19/25 04:22 RBC 3.42 10^6/uL (3.85-5.65) L 06/19/25 04:22 Hgb 10.20 g/dL (11.27-16.99) L 06/19/25 04:22 Hct 30.6 % (36-47) L 06/19/25 04:22 MCV 89.5 fl (85-98) 06/19/25 04:22 MCH 29.8 pg (27-33) 06/19/25 04:22 MCHC 33.3 g/dL (30-55) 06/19/25 04:22 RDW 15.0 % (12.1-15.1) 06/19/25 04:22 Plt Count 169 10^3/cmm (157-399) 06/19/25 04:22 MPV 9.5 fL (7.4-10.4) 06/19/25 04:22 Neut % (Auto) 61.5 % 06/19/25 04:22 Lymph % (Auto) 24.3 % 06/19/25 04:22 [place] % (Auto) 9.1 % 06/19/25 04:22 Eos % (Auto) 4.2 % 06/19/25 04:22 Baso % (Auto) 0.7 % 06/19/25 04:22 Neut # (Auto) 2.78 10^3/uL (1.8-7.7) 06/19/25 04:22 Lymph # (Auto) 1.1 10^3/uL (0.8-4.8) 06/19/25 04:22 [place] # (Auto) 0.4 10^3/uL (0.2-0.9) 06/19/25 04:22 Eos # (Auto) 0.2 10^3/uL (0.0-0.8) 06/19/25 04:22 Baso # (Auto) 0.0 10^3/uL (0.0-0.1) 06/19/25 04:22 Nucleated RBC % (auto) 0 % 06/19/25 04:22 Nucleated RBCs # 0.0 /100WBC 06/19/25 04:22 Sodium 130 mmol/L (136-145) L 06/19/25 04:22 Potassium 4.7 mmol/L (3.5-5.1) 06/19/25 04:22 Chloride 94 mmol/L (98-107) L 06/19/25 04:22 Carbon Dioxide 21 mmol/L (22-29) L 06/19/25 04:22 Anion Gap 19.7 (5-19) H 06/19/25 04:22 BUN 16 mg/dL (8-23) 06/19/25 04:22 Creatinine 0.9 mg/dL (0.5-0.9) 06/19/25 04:22 GFR Calculation Not Reportable 06/19/25 04:22 Glucose 90 mg/dL (65-115) 06/19/25 04:22 Estimat Average Glucose 111 06/17/25 13:18 Hemoglobin A1c 5.5 % (4.0-6.0) 06/17/25 13:18 Serum Osmolality 263 mOsm/kg (278-305) L 06/17/25 15:12 Calculated Osmolality 271 mOsm/kg (285-295) L 06/19/25 04:22 Lactic Acid 1.3 mmol/L (0.5-2.2) 06/17/25 13:18 Calcium 8.7 mg/dL (8.5-10.5) 06/19/25 04:22 Magnesium 1.8 mg/dL (1.7-2.3) 06/17/25 13:18 Total Bilirubin 0.4 mg/dL (0.15-1.2) 06/19/25 04:22 GGT 31 U/L (5-36) 06/17/25 21:03 AST 26 U/L (0-32) 06/19/25 04:22 ALT 40 U/L (0-33) H 06/19/25 04:22 Alkaline Phosphatase 90 U/L (35-105) 06/19/25 04:22 C-Reactive Protein 33.2 mg/L (0.0-4.9) H 06/17/25 21:03 NT-Pro-B Natriuret Pep 2206 pg/mL (0-450) H 06/18/25 03:40 Total Protein 6.0 g/dL (6.6-8.7) L 06/19/25 04:22 Albumin 3.8 g/dL (3.5-5.2) 06/19/25 04:22 Globulin 2.2 g/dL (1.3-4.6) 06/19/25 04:22 Triglycerides 49 mg/dL (0-150) 06/17/25 21:03 Cholesterol 227 mg/dL (0-200) H 06/17/25 21:03 LDL Cholesterol, Calc 129 mg/dL (50-129) 06/17/25 21:03 HDL Cholesterol 88 mg/dL (60-100) 06/17/25 21:03 LDL/HDL Ratio 1.47 RATIO (0.00-3.22) 06/17/25 21:03 Cholesterol/HDL Ratio 2.58 mg/dL (0.0-4.40) 06/17/25 21:03 Lipase 16 U/L (13-60) 06/17/25 21:03 Procalcitonin 0.06 ng/mL (0-0.5) 06/17/25 13:18 TSH 6.62 uIU/mL (0.27-4.20) H 06/17/25 13:18 Urine Color Yellow (Yellow) 06/17/25 15:31 Urine Appearance Clear (CLEAR) 06/17/25 15:31 Urine pH 7.5 (5-7) 06/17/25 15:31 Ur Specific [place] 1.005 (1.005-1.030) 06/17/25 15:31 Urine Protein Negative (Negative) 06/17/25 15:31 Urine Glucose (UA) Negative (Normal) 06/17/25 15:31 Urine Ketones Negative (Negative) 06/17/25 15:31 Urine Blood Negative (Negative) 06/17/25 15: Urine Nitrate Negative (Negative) 06/17/25 15: Urine Bilirubin Negative (Negative) 06/17/25 15:31 Urine Urobilinogen 0.2 mg/dL (Negative) 06/17/25 15:31 Ur Leukocyte Esterase Negative (Negative) 06/17/25 15:31 Urine RBC 0-2 /hpf (0-2) 06/17/25 15:31 Urine WBC 0-5 /hpf (0-5) 06/17/25 15:31 Ur Squamous Epith Cells 0-5 /hpf (0-5) 06/17/25 15:31 Amorphous Sediment Not Reportable 06/17/25 15:31 Urine Bacteria None seen /hpf (NONE) 06/17/25 15:31 Hyaline Casts 0-4 /lpf H 06/17/25 15:31 Ur Random Sodium 68 mmol/L 06/17/25 15:31 Vitals Last Vital Signs Temp 97.5 F L 06/19/25 08:17 Pulse 60 06/19/25 08:17 Resp 16 06/19/25 08:17 BP 118/72 06/19/25 08:17 Pulse Ox 92 06/19/25 08:17 O2 Del Method Room Air 06/19/25 08:17 O2 Flow Rate 2 06/17/25 20:51 Discharge Plan Discharge Patient Disposition: Home Condition: Stable Prescriptions: New sodium chloride 1,000 mg Tablet,Soluble 500 mg PO BID 30 Days Qty: 30 0RF Continued multivitamin Tablet 1 tab PO BID ascorbic acid (vitamin C) 500 mg capsule 500 mg PO BID cholecalciferol (vitamin D3) 50 mcg (2,000 unit) capsule 5,000 unit PO DAILY (DME) Sole supports See Rx Instructions .Route .MEDSUPPLY Qty: 1 0RF Rx Instructions: As directed omega-3 fatty acids-fish oil 684-1,200 mg capsule,delayed release(DR/EC) 1 cap PO DAILY memantine 10 mg tablet 10 mg PO BID Qty: 180 3RF metoprolol tartrate 25 mg tablet 25 mg PO BID Qty: 60 0RF omeprazole 40 mg capsule,delayed release(DR/EC) 40 mg PO DAILY levothyroxine 50 mcg tablet 50 mcg PO DAILY spironolactone 50 mg tablet 50 mg PO DAILY sacubitril-valsartan [Entresto] 24-26 mg tablet 1 tab PO BID amiodarone 200 mg tablet 200 mg PO DAILY Qty: 30 3RF amlodipine 10 mg tablet 10 mg PO DAILY Qty: 90 3RF Ohhinena Probiotics 1 cap PO BID Macuguard Eye Vitamins 1 cap PO DAILY magnesium 200 mg tablet 100 mg PO DAILY melatonin 3 mg Tablet 3 mg PO BEDTIME Eliquis 2.5 mg Tablet 2.5 mg PO BID tacrolimus 1 mg capsule 2 mg PO BID potassium chloride 10 mEq capsule, extended release 10 meq PO DAILY furosemide 40 mg tablet 40 mg PO BID 60 Days Qty: 120 0RF Discharge Order = DC NOW: Discharge Order (Routine); Ordered 06/19/25 Ordered By: Boo Nicolas Referrals: Mason Mcdonough DO [Primary Care Provider, Family Practice] Referral Note: You will need to contact your primary care provider Friday to make a hospital discharge follow up in 4-7 days. Discharge Diet: Cardiac Discharge Activity: Resume usual activity Patient Instructions: Sodium Chloride (By mouth), Hyponatremia (DC), Weakness (DC), Opioid Safety, Patient Portal & Jenise Instructions Activity Restrictions/Additional Instructions: -please have primary care recheck sodium level tommorow -Please continue salt tablets - After 2 weeks I would consider, stopping salt tablets and monitoring serum sodium - Limit fluid intake to 50 to 60 ounces of water a day - Monitor for signs congestive heart failure exacerbation with salt tablets Discharge Attestations Time Spent in Discharge Care*: greater than 30 min Status at Discharge: Cognitive status at discharge: cognitively intact , Behavioral status at discharge: cooperative , Quality Metrics Clinical Quality Measures [ No reported AMI, CVA or VTE this stay] Coding Level of Care Code 39340 Total time (in minutes) for Discharge: 45 Diagnoses Diastolic heart failure secondary to hypertension I11.0; I50.30 Pulmonary hypertension I27.20 Paroxysmal atrial fibrillation I48.0 Atrial fibrillation type: paroxysmal Acute hyponatremia E87.1 Cerebrovascular accident (CVA), unspecified mechanism I63.9 CVA mechanism: unspecified Dizziness R42 Generalized weakness R53.1
[2025-06-20 13:05] LABS: Tacrolimus, Highly Sensitive 8.5 mcg/L
== END 2025-06-19 12:25 | disposition home or self-care (01) ==
LOC: ER 14:29 → MEDSURG 18:42 → ER IP 06-18 11:05
PROVIDERS: Admitting Provider Family Medicine; Emergency Provider Emergency Medicine; PCP Electrodiagnostic Medicine; Visit Provider Family Medicine
DX: I11.0 Hypertensive heart disease with heart failure (principal); I50.30 Unspecified diastolic (congestive) heart failure; I27.20 Pulmonary hypertension, unspecified; I48.0 Paroxysmal atrial fibrillation; E87.1 Hypo-osmolality and hyponatremia; I63.9 Cerebral infarction, unspecified; Z79.01 Long term (current) use of anticoagulants; K21.9 Gastro-esophageal reflux disease without esophagitis; Z94.0 Kidney transplant status; Z94.4 Liver transplant status; E03.9 Hypothyroidism, unspecified; E78.5 Hyperlipidemia, unspecified
CPT/HCPCS: 36415; 70450; 71045; 80053; 80061; 80197; 80307; 81001; 82977; 83036; 83605; 83690; 83735; 83880; 83930; 84145; 84295; 84300; 84443; 85025; 86140; 87040; 93005; 94664; 96374; 96375; 99285; G0378; J1938; J2470; J7030; J7507; J9999